=== PATIENT | male | born 1980 | race Caucasian/White ===

== ENCOUNTER 2020-06-05 09:57 | Outpatient (REF) | payer MEDICARE, MEDICAID, SELFPAY ==
--- NOTE | 2020-06-05 10:08 | XR_ITS ---
EXAMINATION: XR CHEST CLINICAL INFORMATION: Acute bronchitis. COMPARISON: None TECHNIQUE: 2 views of the chest were obtained. FINDINGS: No significant abnormality is noted involving the heart, lungs, mediastinum, bony thorax or soft tissues. XR/XR chest 2V IMPRESSION: No acute cardiopulmonary process.
== END 2020-06-05 09:58 | disposition home or self-care (01) ==
LOC: HO.XRAY 09:57
PROVIDERS: PCP Internal Medicine; Visit Provider Internal Medicine
DX: J20.9 Acute bronchitis, unspecified (principal)
CPT/HCPCS: 71046

== ENCOUNTER → 2020-06-21 11:08 | Outpatient (BNVA) | payer MEDICARE, MEDICAID, SELFPAY | PROVIDERS: PCP Internal Medicine; Visit Provider Surgery | DX: K62.5 Hemorrhage of anus and rectum (principal) | CPT/HCPCS: 99202 ==

== ENCOUNTER 2021-05-12 08:55 | Inpatient (IN) | payer MEDICARE, MEDICAID, SELFPAY ==
--- NOTE | ~2021-05-12 | CT_ITS ---
EXAMINATION: CT HEAD WITHOUT CONTRAST CLINICAL INFORMATION: Expressive aphasia. COMPARISON: None TECHNIQUE: Contiguous axial imaging was performed from the skull base to vertex without intravenous administration of contrast. This CT examination was performed using dose optimization techniques as appropriate, variously including the following: *Automated exposure control *Adjustment of mA and/or kV according to patient size (this includes techniques or standardized protocols for targeted exams where dose is matched to indication/reason for exam; i.e. extremities or head) *Use of iterative reconstruction technique DLP: 880 mGy-cm FINDINGS: There is no evidence of an extra-axial collection. There is no evidence of intra- or extra-axial hemorrhage. The ventricles and extra-axial CSF spaces are appropriate. No mass, mass effect or infarct is seen. There is hyperostosis of the bones. There are areas of ossification along the falx cerebri. No skull fracture or bone lesion. There is mild inflammatory change in the bilateral frontal sinuses. CT/CT head/brain wo con IMPRESSION: No acute findings.
[2021-05-12 09:17] VITALS: BP 160/96; PULSE 86; RESP 18; TEMP 36.6; O2SAT 95; BMI 33.6
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
[2021-05-12] MEDS: hydrOXYzine HCL 25 MG TABLET PO (11:10)
[2021-05-12] MEDS: Memantine HCl 10 MG TABLET PO ×2 (11:10→22:09)
[2021-05-12 11:15] LABS: MANUAL DIFF FLAG NO
[2021-05-12 11:16] LABS: Basophils Absolute Auto 0.1 X10*3/uL (0.0-0.2); Basophils Percent Auto 0.4 % (0-2); Eosinophils Percent Auto 0.3 % (0-4); Hematocrit 44.4 % (42.0-52.0); Hemoglobin 15.3 g/dl (14.0-18.0); Imm Gran Abs Auto 0.04 X10*3/uL (0.00-0.03); Imm Gran Pct Auto 0.3 % (0.0-0.4); Lymphocytes Percent Auto 17.1 % (20-40); Mean Corpuscular HGB Conc 34.5 g/dl (31.0-36.0); Mean Corpuscular Hemoglobin 30.1 pg (27.0-33.0); Mean Corpuscular Volume 87.2 fL (80.0-98.0); Mean Platelet Volume 9.5 fL (9.4-12.4); Monocytes Percent Auto 8.1 % (2-11); Neutrophils Absolute Auto 8.6 x10*3/uL (2.0-8.3); Neutrophils Percent Auto 73.8 % (45-73); Platelet Count 324 X10*3/uL (160-400); Red Blood Count 5.09 X10*6/uL (4.60-5.80); Red Cell Distribution Width 11.8 % (11.0-16.0); White Blood Count 11.7 X10*3/uL (4.8-10.8)
[2021-05-12 11:32] LABS: Ethanol < 10 mg/dL
[2021-05-12 11:36] LABS: Acetaminophen LAB < 1 mcg/mL (<30); Alanine Aminotransferase 30 U/L (0-40); Albumin Level 4.5 g/dL (3.5-5.0); Alkaline Phosphatase 100 U/L (39-117); Anion Gap 10 (12-20); Aspartate Amino Transferase 23 U/L (5-37); Bilirubin Total 0.6 mg/dL (0.0-1.0); Blood Urea Nitrogen 11 mg/dL (9-16); Carbon Dioxide 31 mmol/L (22-29); Chloride 105 mmol/L (96-108); Creatinine Clr Calc Pharmacy 152.6; Estimated Glomerular Filt Rate > 60; Glucose Random 109 mg/dL (60-115); Potassium 4.4 mmol/L (3.3-5.1); Sodium 142 mmol/L (135-145); Total Protein 7.4 g/dL (6.5-8.0)
[2021-05-12 11:38] LABS: Salicylate < 5.0 mg/dL (15-30)
--- NOTE | 2021-05-12 12:13 | PC.NURSE ---
BA COMPLETED FOR [facility] ADMISSION
[2021-05-12 14:21] LABS: Amphetamine Screen Urine Not Detected (Not Detect); Barbiturates, Urine Not Detected (Not Detect); Benzodiazepines Screen Urine Not Detected (Not Detect); Cannabinoid Screen Urine Not Detected (Not Detect); Cocaine Screen Urine Not Detected (Not Detect); Fentanyl, urine Not Detected (Not Detect); Opiate Screen Urine Not Detected (Not Detect); Phencyclidine Screen Urine Not Detected (Not Detect)
[2021-05-12 18:21] LABS: COVID-19 Test Negative (Negative)
[2021-05-12] MEDS: Melatonin 3 MG TABLET 6 MG PO (22:08)
[2021-05-12] MEDS: OXcarbazepine 300 MG TABLET 600 MG PO (22:08)
[2021-05-12] MEDS: risperiDONE 2 MG TABLET 4 MG PO (22:09)
--- NOTE | 2021-05-13 05:21 | PC.NURSE ---
Patient slept through the night, no distress observed/reported, behavior appropriate, cooperative, and non concerning, medication compliant, appetite good, elimination intact, disposition per N is section 12 inpatient bed search, VSS, will continue to monitor.
--- NOTE | 2021-05-13 07:03 | PC.NURSE ---
patient appears to remain asleep at present respirations are even and unlabored, patient appears in no distress
[2021-05-13] MEDS: Memantine HCl 10 MG TABLET PO ×2 (08:02→19:54)
[2021-05-13] MEDS: OXcarbazepine 300 MG TABLET 600 MG PO ×2 (08:02→19:54)
[2021-05-13] MEDS: risperiDONE 3 MG TABLET PO (08:02)
--- NOTE | 2021-05-13 08:23 | MHC.CM.ED ---
at this time pt is an inpatient psych bed search per crisis team. cm to cont. to follow.
[2021-05-13] MEDS: Melatonin 3 MG TABLET 6 MG PO (19:53)
[2021-05-13] MEDS: risperiDONE 2 MG TABLET 4 MG PO (19:53)
[2021-05-13] MEDS: Zolpidem Tartrate 5 MG TABLET 10 MG PO (19:54)
[2021-05-14 04:59] VITALS: RESP 16
--- NOTE | 2021-05-14 06:02 | PC.NURSE ---
Patient slept through the night, no distress observed/reported, behavior appropriate, cooperative, and non concerning, medication compliant, appetite good, elimination intact, disposition per [facility] is voluntary inpatient bed search, refused VS, will continue to monitor
[2021-05-14] MEDS: risperiDONE 3 MG TABLET PO (09:17)
[2021-05-14] MEDS: Memantine HCl 10 MG TABLET PO ×2 (09:17→20:07)
[2021-05-14] MEDS: OXcarbazepine 300 MG TABLET 600 MG PO ×2 (09:17→20:05)
--- NOTE | 2021-05-14 09:40 | HE.PHANOTE ---
Per policy max dose of Ambien is 5 mg. Dose switch from 10 mg to 5 mg. Sydnee Singh, PharmD
--- NOTE | 2021-05-14 10:40 | PC.NURSE ---
Pt anxious, asking when he will be going upstairs, voluntary inpatient. Explained to pt the hospital must DC people before can be admitted at this time. Pt also requesting medication for my skin and the sun but cannot give name of medication. Pt is redirectable and cooperative at this time. Will continue to monitor.
[2021-05-14] MEDS: risperiDONE 2 MG TABLET 4 MG PO (20:05)
[2021-05-14] MEDS: Melatonin 3 MG TABLET 6 MG PO (20:05)
[2021-05-14] MEDS: Zolpidem Tartrate 5 MG TABLET PO (20:06)
[2021-05-15 04:58] VITALS: BP 129/65; PULSE 80; RESP 20; TEMP 36.6; O2SAT 99
--- NOTE | 2021-05-15 06:09 | PC.NURSE ---
Patient slept through the night, no distress observed/reported, behavior gregarious, cooperative and non concerning, medication compliant, appetite good, elimination intact, disposition per [facility] is voluntary inpatient bed search, VSS, will continue to monitor
[2021-05-15] MEDS: Memantine HCl 10 MG TABLET PO ×2 (08:09→21:49)
[2021-05-15] MEDS: OXcarbazepine 300 MG TABLET 600 MG PO ×2 (08:09→21:48)
[2021-05-15] MEDS: risperiDONE 3 MG TABLET PO (08:10)
[2021-05-15 18:00] VITALS: BP 128/64; PULSE 78; TEMP 36.6; O2SAT 98
[2021-05-15] MEDS: risperiDONE 2 MG TABLET 4 MG PO (21:49)
[2021-05-15] MEDS: Melatonin 3 MG TABLET 6 MG PO (22:10)
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
[2021-05-16] MEDS: OXcarbazepine 300 MG TABLET 600 MG PO ×2 (08:56→21:07)
[2021-05-16] MEDS: risperiDONE 3 MG TABLET PO (08:56)
[2021-05-16] MEDS: Memantine HCl 10 MG TABLET PO ×2 (08:56→21:07)
[2021-05-16 09:04] LABS: Cholesterol 182 mg/dL; HDL Cholesterol 34 mg/dL; LDL Cholesterol Calculated 128 mg/dl; Triglycerides 104 mg/dL
[2021-05-16 09:09] LABS: Estimated Average Glucose 103 mg/dL; Hemoglobin A1c % 5.2 %
[2021-05-16 09:41] LABS: Folate 17.5 ng/mL (> or = 4.0); Vitamin B12 366 pg/mL (200-900)
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
[2021-05-16 18:00] VITALS: BP 135/86; PULSE 111; RESP 18; TEMP 36.6; O2SAT 93
[2021-05-16] MEDS: risperiDONE 2 MG TABLET 4 MG PO (21:07)
[2021-05-16] MEDS: Divalproex Sodium 500 MG TABLET.DR PO (21:08)
[2021-05-16] MEDS: Melatonin 3 MG TABLET 6 MG PO (21:31)
[2021-05-16] MEDS: traZODone HCL 50 MG TABLET PO (21:31)
[2021-05-17] MEDS: OXcarbazepine 300 MG TABLET 600 MG PO ×2 (09:23→21:05)
[2021-05-17] MEDS: risperiDONE 3 MG TABLET PO (09:23)
[2021-05-17] MEDS: Divalproex Sodium 500 MG TABLET.DR PO ×2 (09:24→21:05)
[2021-05-17] MEDS: Memantine HCl 10 MG TABLET PO ×2 (09:24→21:05)
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
[2021-05-17 17:09] VITALS: BP 118/67; PULSE 78; TEMP 36.6
[2021-05-17] MEDS: traZODone HCL 50 MG TABLET PO (21:04)
[2021-05-17] MEDS: Melatonin 3 MG TABLET 6 MG PO (21:05)
[2021-05-17] MEDS: risperiDONE 2 MG TABLET 4 MG PO (21:06)
[2021-05-18] MEDS: OXcarbazepine 300 MG TABLET 600 MG PO ×2 (08:59→21:00)
[2021-05-18] MEDS: risperiDONE 3 MG TABLET PO (09:00)
[2021-05-18] MEDS: Divalproex Sodium 500 MG TABLET.DR PO ×2 (09:00→21:00)
[2021-05-18] MEDS: Memantine HCl 10 MG TABLET PO ×2 (09:00→21:01)
[2021-05-18] MEDS: FLUoxetine HCl 20 MG CAPSULE 40 MG PO (09:00)
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
[2021-05-18] MEDS: risperiDONE 2 MG TABLET 4 MG PO (21:00)
[2021-05-19 06:00] VITALS: BP 145/83; PULSE 94; RESP 18
[2021-05-19] MEDS: Divalproex Sodium 500 MG TABLET.DR PO ×2 (08:26→19:12)
[2021-05-19] MEDS: FLUoxetine HCl 20 MG CAPSULE 40 MG PO (08:26)
[2021-05-19] MEDS: OXcarbazepine 300 MG TABLET 600 MG PO (08:26)
[2021-05-19] MEDS: Memantine HCl 10 MG TABLET PO ×2 (08:26→19:12)
[2021-05-19] MEDS: risperiDONE 3 MG TABLET PO (08:26)
--- NOTE | 2021-05-19 09:57 | P.PNPSI_ITS ---
Subjective Subjective Date of Service: 05/19/21 Reason For Visit: psychosis, mood disorder Subjective Notes: Conditional Voluntary Interim History: Pt in his room most of the morning. Pt reports feeling okay. he reports not sure if better in terms of depression or not because is too early. Pt presents as less irritable, less anxious. He denies SI/HI. He hopes to return to soon. apologetic about incident. Medication Compliance: Yes Side effects from medications: No Review of Systems Constitutional: Reports no additional constitutional complaints, Denies body ache(s), Denies chills, Denies fatigue, Denies fever(s), Denies headache(s), Denies malaise and Denies weakness Eyes: Reports no additional eye complaints and Denies diplopia Denies vertigo, Denies dizziness, Denies otalgia, Denies headache(s), Denies mouth pain, Denies post nasal drip, Denies sinus pain, Denies sinus pressure, Denies sore throat and Denies throat swelling Cardiovascular: Denies chest pain, Denies syncope, Denies rapid heart rate, Denies irregular heart rhythm, Denies leg edema, Denies lightheadedness, Denies Loss of Consciousness, Denies palpitations and Denies dyspnea Respiratory: Denies chest congestion, Denies cough, Denies pain with cough and Denies dyspnea Gastrointestinal: Denies abdominal pain, Denies hematochezia, Denies constipation, Denies diarrhea and Denies vomiting Genitourinary: Reports testicular mass Musculoskeletal: Reports no additional musculoskeletal complaints Denies confusion, Denies vertigo, Denies dizziness, Denies syncope, Denies headache(s) and Denies weakness Psychiatric: Denies anxiety, Denies confusion and Denies depression Endocrine: Denies fatigue and Denies palpitations Allergic/Immunologic: Denies throat swelling Mental Status Exam Mental Status Exam Narrative: Appearance: casually groomed, fair hygiene in NAD Behavior: guarded at times psychomotor:no agitation or retardation noted Speech:notable for expressive aphasia, difficulty finding words, describing situations, frustration related to this, comphrehension is intact. Spontaneous, loud at times. Thought process:disorganized Thought content:no signs of psychosis, asking for help to control his behavior Mood: depressed Affect: brightens at times, irritable when demands not met SI:denies HI:denies VH/AH:none Delusions:none Insight/judgment:poor x 2. Memory/cog: alert, oriented to place, month, situation, not formally tested Diagnostics Vital Signs (24Hr): BMI result Body Mass Index 33.6 Labs Results: 05/12/21 11:11 05/12/21 11:11 Medications Medications Current Medications Acetaminophen (Acetaminophen 325 Mg Tablet) 650 mg PO Q6H PRN PRN Reason: Headache/Pain Mild Scale (1-3) Al Hydroxide/Mg Hydroxide (Magnesium Hydrox/Alum Hydrox 30 Ml Oral.Susp) 30 ml PO Q6H PRN PRN Reason: Heartburn/Nausea Divalproex Sodium (Divalproex Sodium 500 Mg Tablet.) 500 mg PO BID@0800,1900 [facility] Last Admin: 05/20/21 09:11 Dose: 500 mg Documented by: Fluoxetine HCl (Fluoxetine Hcl 20 Mg Capsule) 40 mg PO DAILY [facility] Last Admin: 05/20/21 09:11 Dose: 40 mg Documented by: Hydroxyzine HCl (Hydroxyzine Hcl 25 Mg Tablet) 25 mg PO BEDTIME PRN PRN Reason: Anxiety Lorazepam (Lorazepam 1 Mg Tablet) 1 mg PO Q4H PRN PRN Reason: anxiety, agitation Magnesium Hydroxide (Milk Of Magnesia 30 Ml Oral.Susp) 30 ml PO DAILY PRN PRN Reason: Constipation Melatonin (Melatonin 3 Mg Tablet) 6 mg PO BEDTIME PRN PRN Reason: Insomnia Last Admin: 05/19/21 19:35 Dose: 6 mg Documented by: Memantine (Memantine Hcl 10 Mg Tablet) 10 mg PO BID [facility] Last Admin: 05/20/21 09:12 Dose: 10 mg Documented by: Olanzapine (Olanzapine Odt 10 Mg Tab.Rapdis) 10 mg TRANSLINGU Q6H PRN PRN Reason: agitation Risperidone (Risperidone 3 Mg Tablet) 3 mg PO DAILY [facility] Last Admin: 05/20/21 09:12 Dose: 3 mg Documented by: Risperidone (Risperidone 2 Mg Tablet) 4 mg PO DAILY@1900 [facility] Last Admin: 05/19/21 19:12 Dose: 4 mg Documented by: Trazodone HCl (Trazodone Hcl 100 Mg Tablet) 100 mg PO BEDTIME PRN PRN Reason: Insomnia Last Admin: 05/19/21 19:35 Dose: 100 mg Documented by: Allergies Allergies Allergy/AdvReac Type Severity Reaction Status Date / Time No Known Allergies Allergy Verified 04/19/21 11:08 Assessment & Plan Assessment & Plan (1) Intermittent explosive disorder in adult: Status: Acute Code(s): F63.81 - Intermittent explosive disorder (2) OCD (obsessive compulsive disorder): Status: Acute Code(s): F42.9 - Obsessive-compulsive disorder, unspecified (3) Jalyn onychomycosis: Status: Acute Code(s): B37.2 - Candidiasis of skin and nail (4) Sebaceous cyst of scrotum: Status: Acute Code(s): L72.3 - Sebaceous cyst Assessment and Plan: Mr. Fowler is a 41 year-old male with unclear psychiatric hx- explosive behaviors, expressive language disorder noted (difficulty finding words and expressing himself, notable frustration as he tried to explain to us events leading to this admission), concrete in his thinking, ? underlying cognitive impairments developmental. He reports hx of OCD (does have particular ways of organizing things) and Touretts syndrome- not sure how accurate this is. No signs of psychosis, non per staff noted. PLAN 1. Admit to M5, CV 15 minutes 2. Start Depakote 500mg po BID, continue risperidone, start prozac 40mg po daily 3. Called Dr. Jack Nguyen on 05/16, awaiting call back 4. Obtain collateral information 5. Aftercare planning I spent minutes with the patient and/or on the patient floor today, greater than?50% of which was spent counseling/coordinating care. Reason for contiued inpatient stay Substantial Risk for: inability to function
[2021-05-19] MEDS: risperiDONE 2 MG TABLET 4 MG PO (19:12)
[2021-05-19] MEDS: Melatonin 3 MG TABLET 6 MG PO (19:35)
[2021-05-19] MEDS: traZODone HCL 100 MG TABLET PO (19:35)
[2021-05-20] MEDS: Divalproex Sodium 500 MG TABLET.DR PO ×2 (09:11→19:17)
[2021-05-20] MEDS: FLUoxetine HCl 20 MG CAPSULE 40 MG PO (09:11)
[2021-05-20] MEDS: risperiDONE 3 MG TABLET PO (09:12)
[2021-05-20] MEDS: Memantine HCl 10 MG TABLET PO ×2 (09:12→19:17)
--- NOTE | 2021-05-20 12:59 | HO.PSYCHPN ---
Subjective Subjective Date of Service: 05/20/21 Reason For Visit: psychosis, mood disorder Subjective Notes: Conditional Voluntary Interim History: Pt mostly in his room, encouraged to attend group but declines. He presents as calmer. Pt reports feeling okay. he continues to report not sure if better in terms of depression or not because is too early. Pt presents as less irritable, less anxious. He denies SI/HI. He hopes to return to soon. apologetic about incident. He asks for zoom meeting with staff. Review of Systems Constitutional: Reports no additional constitutional complaints, Denies body ache(s), Denies chills, Denies fatigue, Denies fever(s), Denies headache(s), Denies malaise and Denies weakness Eyes: Reports no additional eye complaints and Denies diplopia Denies vertigo, Denies dizziness, Denies otalgia, Denies headache(s), Denies mouth pain, Denies post nasal drip, Denies sinus pain, Denies sinus pressure, Denies sore throat and Denies throat swelling Cardiovascular: Denies chest pain, Denies syncope, Denies rapid heart rate, Denies irregular heart rhythm, Denies leg edema, Denies lightheadedness, Denies Loss of Consciousness, Denies palpitations and Denies dyspnea Respiratory: Denies chest congestion, Denies cough, Denies pain with cough and Denies dyspnea Gastrointestinal: Denies abdominal pain, Denies hematochezia, Denies constipation, Denies diarrhea and Denies vomiting Genitourinary: Reports testicular mass Musculoskeletal: Reports no additional musculoskeletal complaints Denies confusion, Denies vertigo, Denies dizziness, Denies syncope, Denies headache(s) and Denies weakness Psychiatric: Denies anxiety, Denies confusion and Denies depression Endocrine: Denies fatigue and Denies palpitations Allergic/Immunologic: Denies throat swelling Mental Status Exam Mental Status Exam Narrative: Appearance: casually groomed, fair hygiene in NAD Behavior: guarded at times psychomotor:no agitation or retardation noted Speech:notable for expressive aphasia, difficulty finding words, describing situations, frustration related to this, comphrehension is intact. Spontaneous, loud at times. Thought process:disorganized Thought content:no signs of psychosis, asking for help to control his behavior Mood: depressed Affect: brightens at times, irritable when demands not met SI:denies HI:denies VH/AH:none Delusions:none Insight/judgment:poor x 2. Memory/cog: alert, oriented to place, month, situation, not formally tested Diagnostics Vital Signs (24Hr): BMI result Body Mass Index 33.6 Labs Results: 05/12/21 11:11 05/12/21 11:11 Medications Medications Current Medications Acetaminophen (Acetaminophen 325 Mg Tablet) 650 mg PO Q6H PRN PRN Reason: Headache/Pain Mild Scale (1-3) Al Hydroxide/Mg Hydroxide (Magnesium Hydrox/Alum Hydrox 30 Ml Oral.Susp) 30 ml PO Q6H PRN PRN Reason: Heartburn/Nausea Divalproex Sodium (Divalproex Sodium 500 Mg Tablet.Dr) 500 mg PO BID@0800,1900 [facility] Last Admin: 05/20/21 09:11 Dose: 500 mg Documented by: Fluoxetine HCl (Fluoxetine Hcl 20 Mg Capsule) 40 mg PO DAILY [facility] Last Admin: 05/20/21 09:11 Dose: 40 mg Documented by: Hydroxyzine HCl (Hydroxyzine Hcl 25 Mg Tablet) 25 mg PO BEDTIME PRN PRN Reason: Anxiety Lorazepam (Lorazepam 1 Mg Tablet) 1 mg PO Q4H PRN PRN Reason: anxiety, agitation Magnesium Hydroxide (Milk Of Magnesia 30 Ml Oral.Susp) 30 ml PO DAILY PRN PRN Reason: Constipation Melatonin (Melatonin 3 Mg Tablet) 6 mg PO BEDTIME PRN PRN Reason: Insomnia Last Admin: 05/19/21 19:35 Dose: 6 mg Documented by: Memantine (Memantine Hcl 10 Mg Tablet) 10 mg PO BID [facility] Last Admin: 05/20/21 09:12 Dose: 10 mg Documented by: Olanzapine (Olanzapine Odt 10 Mg Tab.Rapdis) 10 mg TRANSLINGU Q6H PRN PRN Reason: agitation Risperidone (Risperidone 3 Mg Tablet) 3 mg PO DAILY [facility] Last Admin: 05/20/21 09:12 Dose: 3 mg Documented by: Risperidone (Risperidone 2 Mg Tablet) 4 mg PO DAILY@1900 [facility] Last Admin: 05/19/21 19:12 Dose: 4 mg Documented by: Trazodone HCl (Trazodone Hcl 100 Mg Tablet) 100 mg PO BEDTIME PRN PRN Reason: Insomnia Last Admin: 05/19/21 19:35 Dose: 100 mg Documented by: Allergies Allergies Allergy/AdvReac Type Severity Reaction Status Date / Time No Known Allergies Allergy Verified 04/19/21 11:08 Assessment & Plan Assessment & Plan (1) Intermittent explosive disorder in adult: Status: Acute Code(s): F63.81 - Intermittent explosive disorder (2) OCD (obsessive compulsive disorder): Status: Acute Code(s): F42.9 - Obsessive-compulsive disorder, unspecified (3) Jalyn onychomycosis: Status: Acute Code(s): B37.2 - Candidiasis of skin and nail (4) Sebaceous cyst of scrotum: Status: Acute Code(s): L72.3 - Sebaceous cyst Assessment and Plan: Mr. Fowler is a 41 year-old male with unclear psychiatric hx- explosive behaviors, expressive language disorder noted (difficulty finding words and expressing himself, notable frustration as he tried to explain to us events leading to this admission), concrete in his thinking, ? underlying cognitive impairments developmental. He reports hx of OCD (does have particular ways of organizing things) and Touretts syndrome- not sure how accurate this is. No signs of psychosis, non per staff noted. PLAN 1. Admit to M5, CV 15 minutes 2. Start Depakote 500mg po BID, continue risperidone, start prozac 40mg po daily 3. Called Dr. Jack Nguyen on 05/16, awaiting call back 4. Obtain collateral information 5. Aftercare planning I spent minutes with the patient and/or on the patient floor today, greater than?50% of which was spent counseling/coordinating care. Reason for contiued inpatient stay Substantial Risk for: harm to others
[2021-05-20 16:30] VITALS: BP 134/76; PULSE 106; TEMP 36.7
[2021-05-20] MEDS: traZODone HCL 100 MG TABLET PO (19:16)
[2021-05-20] MEDS: Melatonin 3 MG TABLET 6 MG PO (19:16)
[2021-05-20] MEDS: risperiDONE 2 MG TABLET 4 MG PO (19:17)
[2021-05-21 08:55] LABS: Valproate 51.8 mcg/mL (50.0-100.0)
[2021-05-21] MEDS: risperiDONE 3 MG TABLET PO (09:43)
[2021-05-21] MEDS: Memantine HCl 10 MG TABLET PO ×2 (09:43→20:05)
[2021-05-21] MEDS: Divalproex Sodium 500 MG TABLET.DR PO ×2 (09:43→18:57)
[2021-05-21] MEDS: FLUoxetine HCl 20 MG CAPSULE 40 MG PO (09:43)
--- NOTE | 2021-05-21 10:53 | HO.PSYCHPN ---
Subjective Subjective Date of Service: 05/21/21 Reason For Visit: psychosis, mood disorder Subjective Notes: Conditional Voluntary Interim History: Pt seen with clinician Ashwini. Pt reports noticing less depressed mood. he reports still getting angry and frustrated easily and worries about it. He reports sleeping and eating well. He visibly frustrated when trying to communicate and can't express himself as easily. He denies SI/HI. He hopes to have meeting with staff from soon. pending depakote level. amenable to adjust dose. Medication Compliance: Yes Review of Systems Constitutional: Reports no additional constitutional complaints, Denies body ache(s), Denies chills, Denies fatigue, Denies fever(s), Denies headache(s), Denies malaise and Denies weakness Eyes: Reports no additional eye complaints and Denies diplopia Denies vertigo, Denies dizziness, Denies otalgia, Denies headache(s), Denies mouth pain, Denies post nasal drip, Denies sinus pain, Denies sinus pressure, Denies sore throat and Denies throat swelling Cardiovascular: Denies chest pain, Denies syncope, Denies rapid heart rate, Denies irregular heart rhythm, Denies leg edema, Denies lightheadedness, Denies Loss of Consciousness, Denies palpitations and Denies dyspnea Respiratory: Denies chest congestion, Denies cough, Denies pain with cough and Denies dyspnea Gastrointestinal: Denies abdominal pain, Denies hematochezia, Denies constipation, Denies diarrhea and Denies vomiting Genitourinary: Reports testicular mass Musculoskeletal: Reports no additional musculoskeletal complaints Denies confusion, Denies vertigo, Denies dizziness, Denies syncope, Denies headache(s) and Denies weakness Psychiatric: Denies anxiety, Denies confusion and Denies depression Endocrine: Denies fatigue and Denies palpitations Allergic/Immunologic: Denies throat swelling Mental Status Exam Mental Status Exam Narrative: Appearance: casually groomed, fair hygiene in NAD Behavior: guarded at times psychomotor:no agitation or retardation noted Speech:notable for expressive aphasia, difficulty finding words, describing situations, frustration related to this, comphrehension is intact. Spontaneous, loud at times. Thought process:disorganized Thought content:no signs of psychosis, asking for help to control his behavior Mood: depressed Affect: brightens at times, irritable when demands not met SI:denies HI:denies VH/AH:none Delusions:none Insight/judgment:poor x 2. Memory/cog: alert, oriented to place, month, situation, not formally tested Diagnostics Vital Signs (24Hr): Vital Signs - 24 hr 05/20/21 16:30 Temperature 98.0 F Pulse Rate 106 H Blood Pressure 134/76 BMI result Body Mass Index 33.6 Labs Results: 05/12/21 11:11 05/12/21 11:11 Labs: Laboratory Results - last 48 hr 05/21/21 08:00 Valproic Acid 51.8 Medications Medications Current Medications Acetaminophen (Acetaminophen 325 Mg Tablet) 650 mg PO Q6H PRN PRN Reason: Headache/Pain Mild Scale (1-3) Al Hydroxide/Mg Hydroxide (Magnesium Hydrox/Alum Hydrox 30 Ml Oral.Susp) 30 ml PO Q6H PRN PRN Reason: Heartburn/Nausea Divalproex Sodium (Divalproex Sodium 500 Mg Tablet.) 500 mg PO BID@0800,1900 [facility] Last Admin: 05/21/21 09:43 Dose: 500 mg Documented by: Fluoxetine HCl (Fluoxetine Hcl 20 Mg Capsule) 40 mg PO DAILY [facility] Last Admin: 05/21/21 09:43 Dose: 40 mg Documented by: Hydroxyzine HCl (Hydroxyzine Hcl 25 Mg Tablet) 25 mg PO BEDTIME PRN PRN Reason: Anxiety Lorazepam (Lorazepam 1 Mg Tablet) 1 mg PO Q4H PRN PRN Reason: anxiety, agitation Magnesium Hydroxide (Milk Of Magnesia 30 Ml Oral.Susp) 30 ml PO DAILY PRN PRN Reason: Constipation Melatonin (Melatonin 3 Mg Tablet) 6 mg PO BEDTIME PRN PRN Reason: Insomnia Last Admin: 05/20/21 19:16 Dose: 6 mg Documented by: Memantine (Memantine Hcl 10 Mg Tablet) 10 mg PO BID [facility] Last Admin: 05/21/21 09:43 Dose: 10 mg Documented by: Olanzapine (Olanzapine Odt 10 Mg Tab.Rapdis) 10 mg TRANSLINGU Q6H PRN PRN Reason: agitation Risperidone (Risperidone 3 Mg Tablet) 3 mg PO DAILY [facility] Last Admin: 05/21/21 09:43 Dose: 3 mg Documented by: Risperidone (Risperidone 2 Mg Tablet) 4 mg PO DAILY@1900 [facility] Last Admin: 05/20/21 19:17 Dose: 4 mg Documented by: Trazodone HCl (Trazodone Hcl 100 Mg Tablet) 100 mg PO BEDTIME PRN PRN Reason: Insomnia Last Admin: 05/20/21 19:16 Dose: 100 mg Documented by: Vitamin E (Vitamin E (Dl,Tocopheryl Acet) 180 Mg (400 Unit) Capsule) 180 mg PO DAILY [facility] Allergies Allergies Allergy/AdvReac Type Severity Reaction Status Date / Time No Known Allergies Allergy Verified 04/19/21 11:08 Assessment & Plan Assessment & Plan (1) Intermittent explosive disorder in adult: Status: Acute Code(s): F63.81 - Intermittent explosive disorder (2) OCD (obsessive compulsive disorder): Status: Acute Code(s): F42.9 - Obsessive-compulsive disorder, unspecified (3) Jalyn onychomycosis: Status: Acute Code(s): B37.2 - Candidiasis of skin and nail (4) Sebaceous cyst of scrotum: Status: Acute Code(s): L72.3 - Sebaceous cyst Assessment and Plan: Mr. Fowler is a 41 year-old male with unclear psychiatric hx- explosive behaviors, expressive language disorder noted (difficulty finding words and expressing himself, notable frustration as he tried to explain to us events leading to this admission), concrete in his thinking, ? underlying cognitive impairments developmental. He reports hx of OCD (does have particular ways of organizing things) and Touretts syndrome- not sure how accurate this is. No signs of psychosis, non per staff noted. PLAN 1. Admit to M5, CV 15 minutes 2. Continue Depakote 500mg po BID (depakote level 05/21 is 51), continue risperidone, start prozac 40mg po daily 3. Called Dr. Jack Nguyen on 05/16, awaiting call back 4. Obtain collateral information 5. Aftercare planning I spent minutes with the patient and/or on the patient floor today, greater than?50% of which was spent counseling/coordinating care. Reason for contiued inpatient stay Substantial Risk for: harm to others and inability to function
[2021-05-21] MEDS: Vitamin E (Dl,Tocopheryl Acet) 180 MG (400 UNIT) CAPSULE PO (17:26)
[2021-05-21 17:32] VITALS: BP 134/75; PULSE 69; TEMP 36.7; O2SAT 95
[2021-05-21] MEDS: risperiDONE 2 MG TABLET 4 MG PO (18:58)
[2021-05-21] MEDS: traZODone HCL 100 MG TABLET PO (20:05)
[2021-05-21] MEDS: Melatonin 3 MG TABLET 6 MG PO (20:05)
[2021-05-22] MEDS: risperiDONE 3 MG TABLET PO (09:01)
[2021-05-22] MEDS: Memantine HCl 10 MG TABLET PO (09:01)
[2021-05-22] MEDS: FLUoxetine HCl 20 MG CAPSULE 40 MG PO (09:01)
[2021-05-22] MEDS: Vitamin E (Dl,Tocopheryl Acet) 180 MG (400 UNIT) CAPSULE PO (09:01)
[2021-05-22] MEDS: Divalproex Sodium 500 MG TABLET.DR PO (09:02)
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
[2021-05-22 18:00] VITALS: BP 137/89; PULSE 100; TEMP 36.8; O2SAT 95
[2021-05-22] MEDS: Divalproex Sodium 500 MG TABLET.DR 1000 MG PO (19:12)
[2021-05-22] MEDS: risperiDONE 2 MG TABLET 4 MG PO (19:13)
[2021-05-22] MEDS: Melatonin 3 MG TABLET 6 MG PO (21:48)
[2021-05-22] MEDS: traZODone HCL 100 MG TABLET PO (21:48)
[2021-05-23] MEDS: Vitamin E (Dl,Tocopheryl Acet) 180 MG (400 UNIT) CAPSULE PO (09:15)
[2021-05-23] MEDS: risperiDONE 3 MG TABLET PO (09:15)
[2021-05-23] MEDS: FLUoxetine HCl 20 MG CAPSULE 40 MG PO (09:15)
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
[2021-05-23 18:50] VITALS: BP 119/73; PULSE 76; RESP 18; TEMP 36.4; O2SAT 95
[2021-05-23] MEDS: Divalproex Sodium ER 500 MG TAB.ER.24H 1500 MG PO (19:21)
[2021-05-23] MEDS: risperiDONE 2 MG TABLET 4 MG PO (19:21)
[2021-05-23] MEDS: Memantine HCl 10 MG TABLET PO (19:44)
[2021-05-23] MEDS: traZODone HCL 100 MG TABLET PO (19:45)
[2021-05-23] MEDS: Melatonin 3 MG TABLET 6 MG PO (19:55)
[2021-05-24] MEDS: Vitamin E (Dl,Tocopheryl Acet) 180 MG (400 UNIT) CAPSULE PO (08:36)
[2021-05-24] MEDS: FLUoxetine HCl 20 MG CAPSULE 40 MG PO (08:36)
[2021-05-24] MEDS: risperiDONE 3 MG TABLET PO (08:36)
[2021-05-24] MEDS: Memantine HCl 10 MG TABLET PO ×2 (08:37→19:31)
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
[2021-05-24 18:29] VITALS: BP 131/72; PULSE 76; RESP 18; TEMP 36.3; O2SAT 95
[2021-05-24] MEDS: Divalproex Sodium ER 500 MG TAB.ER.24H 1500 MG PO (19:30)
[2021-05-24] MEDS: risperiDONE 2 MG TABLET 4 MG PO (19:30)
[2021-05-24] MEDS: Melatonin 3 MG TABLET 6 MG PO (19:31)
[2021-05-24] MEDS: traZODone HCL 100 MG TABLET PO (19:31)
[2021-05-25] MEDS: risperiDONE 3 MG TABLET PO (08:40)
[2021-05-25] MEDS: Memantine HCl 10 MG TABLET PO ×2 (08:40→19:40)
[2021-05-25] MEDS: Vitamin E (Dl,Tocopheryl Acet) 180 MG (400 UNIT) CAPSULE PO (08:40)
[2021-05-25] MEDS: FLUoxetine HCl 20 MG CAPSULE 40 MG PO (08:40)
--- NOTE | 2021-05-25 13:32 | P.PNPSI_ITS ---
Subjective Subjective Date of Service: 05/25/21 Reason For Visit: psychosis, mood disorder Interim History: Patient awake but resting in bed. He says he is fine and does not need anything. He consents to blood draw tomorrow for Depakote level. Denies any complaints and has no requests. Mental Status Exam Mental Status Exam Narrative: Appearance: shirtless; fair hygiene in NAD Behavior: calm, friendly psychomotor:no agitation or retardation noted Speech:notable for expressive aphasia, difficulty finding words, describing situations, frustration related to this, comprehension is intact. Spontaneous, loud at times. Thought process:goal oriented Thought content: on tx; no signs of psychosis, asking for help to control his behavior Mood: ok Affect: brightens at times, irritable when demands not met SI:denies HI:denies VH/AH:none Delusions:none Insight/judgment:poor x 2. Diagnostics Vital Signs (24Hr): Vital Signs - 24 hr 05/24/21 18:29 Temperature 97.3 F Pulse Rate 76 Respiratory Rate 18 Blood Pressure 131/72 Pulse Oximetry 95 BMI result Body Mass Index 33.6 Labs Results: 05/12/21 11:11 05/12/21 11:11 Imaging Radiology Impressions: ITS Impressions Head CT 05/23/21 13:32 IMPRESSION: No acute findings. Medications Medications Current Medications Acetaminophen (Acetaminophen 325 Mg Tablet) 650 mg PO Q6H PRN PRN Reason: Headache/Pain Mild Scale (1-3) Al Hydroxide/Mg Hydroxide (Magnesium Hydrox/Alum Hydrox 30 Ml Oral.Susp) 30 ml PO Q6H PRN PRN Reason: Heartburn/Nausea Divalproex Sodium (Divalproex Sodium Er 500 Mg Tab.Er.24h) 1,500 mg PO DAILY@1900 [facility] Last Admin: 05/24/21 19:30 Dose: 1,500 mg Documented by: Fluoxetine HCl (Fluoxetine Hcl 20 Mg Capsule) 40 mg PO DAILY [facility] Last Admin: 05/25/21 08:40 Dose: 40 mg Documented by: Hydroxyzine HCl (Hydroxyzine Hcl 25 Mg Tablet) 25 mg PO BEDTIME PRN PRN Reason: Anxiety Magnesium Hydroxide (Milk Of Magnesia 30 Ml Oral.Susp) 30 ml PO DAILY PRN PRN Reason: Constipation Melatonin (Melatonin 3 Mg Tablet) 6 mg PO BEDTIME PRN PRN Reason: Insomnia Last Admin: 05/24/21 19:31 Dose: 6 mg Documented by: Memantine (Memantine Hcl 10 Mg Tablet) 10 mg PO BID [facility] Last Admin: 05/25/21 08:40 Dose: 10 mg Documented by: Risperidone (Risperidone 3 Mg Tablet) 3 mg PO DAILY [facility] Last Admin: 05/25/21 08:40 Dose: 3 mg Documented by: Risperidone (Risperidone 2 Mg Tablet) 4 mg PO DAILY@1900 [facility] Last Admin: 05/24/21 19:30 Dose: 4 mg Documented by: Trazodone HCl (Trazodone Hcl 100 Mg Tablet) 100 mg PO BEDTIME PRN PRN Reason: Insomnia Last Admin: 05/24/21 19:31 Dose: 100 mg Documented by: Vitamin E (Vitamin E (Dl,Tocopheryl Acet) 180 Mg (400 Unit) Capsule) 180 mg PO DAILY [facility] Last Admin: 05/25/21 08:40 Dose: 180 mg Documented by: Allergies Allergies Allergy/AdvReac Type Severity Reaction Status Date / Time No Known Allergies Allergy Verified 04/19/21 11:08 Assessment & Plan Assessment & Plan (1) Intermittent explosive disorder in adult: Status: Acute Code(s): F63.81 - Intermittent explosive disorder (2) OCD (obsessive compulsive disorder): Status: Acute Code(s): F42.9 - Obsessive-compulsive disorder, unspecified (3) Jalyn onychomycosis: Status: Acute Code(s): B37.2 - Candidiasis of skin and nail (4) Sebaceous cyst of scrotum: Status: Acute Code(s): L72.3 - Sebaceous cyst (5) Expressive language impairment: Status: Acute Code(s): F80.1 - Expressive language disorder Assessment and Plan: Pt with difficulty producing grammatical sentences, speech limited to short sentences of 4 words or less, difficulty finding right sound or/and right w ord. Pt's comprehension appears fairly intact. Assessment and Plan: Mr. Fowler is a 41 year-old male with unclear psychiatric hx- explosive behaviors, expressive language disorder noted (difficulty finding words and expressing himself, notable frustration as he tried to explain to us events leading to this admission), concrete in his thinking, ? underlying cognitive impairments developmental. He reports hx of OCD (does have particular ways of organizing things) and Touretts syndrome- not sure how accurate this is. No signs of psychosis, non per staff noted. covering 05/25/21 -presents as stable -will get Depakote level and associated labs on 05/26 -social Work reports that [facility] plans to him return PLAN 1. Admit to M5, CV 15 minutes 2. Increase Depakote ER 1500mg po qhs (depakote level 05/21 is 51), continue ri speridone, continue prozac 40mg po daily 3. Collateral information from Dr. Jack Nguyen on 05/22: as reported by staff depakote most effective for explosive behaviors, namenda not active rx no clear reason for this medication therefore will be discontinued. Pt reports namenda was prescribed for aggression and thinks it was helpful. Pt wants to continue namenda. Other off label uses of namenda include adjunt for OCD, aggression in TBI. 4. Obtain collateral information 5. Aftercare planning I spent minutes with the patient and/or on the patient floor today, greater than?50% of which was spent counseling/coordinating care. Reason for contiued inpatient stay Substantial Risk for: med/psych decompensation
[2021-05-25] MEDS: Divalproex Sodium ER 500 MG TAB.ER.24H 1500 MG PO (19:27)
[2021-05-25] MEDS: risperiDONE 2 MG TABLET 4 MG PO (19:27)
[2021-05-25] MEDS: Melatonin 3 MG TABLET 6 MG PO (19:39)
[2021-05-25] MEDS: traZODone HCL 100 MG TABLET PO (19:39)
[2021-05-25] MEDS: hydrOXYzine HCL 25 MG TABLET PO (19:43)
[2021-05-25 19:45] VITALS: BP 121/79; PULSE 71; RESP 16; TEMP 36.5; O2SAT 97
[2021-05-26] MEDS: Vitamin E (Dl,Tocopheryl Acet) 180 MG (400 UNIT) CAPSULE PO (08:23)
[2021-05-26] MEDS: Memantine HCl 10 MG TABLET PO ×2 (08:23→19:53)
[2021-05-26] MEDS: risperiDONE 3 MG TABLET PO (08:23)
[2021-05-26] MEDS: FLUoxetine HCl 20 MG CAPSULE 40 MG PO (08:23)
[2021-05-26 14:18] LABS: Ammonia 50 umol/L (13-55)
[2021-05-26 14:26] LABS: Alanine Aminotransferase 20 U/L (0-40); Albumin Level 3.8 g/dL (3.5-5.0); Alkaline Phosphatase 79 U/L (39-117); Aspartate Amino Transferase 13 U/L (5-37); Bilirubin Direct < 0.2 mg/dL (0.0-0.5); Bilirubin Total 0.3 mg/dL (0.0-1.0); Total Protein 6.5 g/dL (6.5-8.0)
[2021-05-26 14:31] LABS: Valproate 62.6 mcg/mL (50.0-100.0)
--- NOTE | 2021-05-26 16:51 | P.PNPSI_ITS ---
Subjective Subjective Date of Service: 05/26/21 Reason For Visit: psychosis, mood disorder Interim History: Patient lying in bed; says he accidentally told the emergency room doctor to go way because was tired but agrees to have him come back to draw labs. He denies any complaints and has no requests. 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 Inte rmittently interactive in the milieu. Denies any medication side effects. Mental Status Exam Mental Status Exam Narrative: Appearance: shirtless; fair hygiene in NAD Behavior: calm, friendly psychomotor:no agitation or retardation noted Speech:notable for expressive aphasia, difficulty finding words, describing situations, frustration related to this, comprehension is intact. Spontaneous, loud at times. Thought process:goal oriented Thought content: on tx; no signs of psychosis, asking for help to control his behavior Mood: ok Affect: brightens at times, can be irritable when demands not met SI:denies HI:denies VH/AH:none Delusions:none Insight/judgment:poor x 2. Diagnostics Vital Signs (24Hr): Vital Signs - 24 hr 05/25/21 19:45 Temperature 97.7 F Pulse Rate 71 Respiratory Rate 16 Blood Pressure 121/79 Pulse Oximetry 97 BMI result Body Mass Index 33.6 Labs Results: 05/12/21 11:11 05/12/21 11:11 Labs: Laboratory Results - last 48 hr 05/26/21 05/26/21 13:51 13:51 Total Bilirubin 0.3 Direct Bilirubin < 0.2 AST 13 D ALT 20 Alkaline Phosphatase 79 D Ammonia 50 Total Protein 6.5 Albumin 3.8 Valproic Acid 62.6 Imaging Radiology Impressions: ITS Impressions Head CT 05/23/21 13:32 IMPRESSION: No acute findings. Medications Medications Current Medications Acetaminophen (Acetaminophen 325 Mg Tablet) 650 mg PO Q6H PRN PRN Reason: Headache/Pain Mild Scale (1-3) Al Hydroxide/Mg Hydroxide (Magnesium Hydrox/Alum Hydrox 30 Ml Oral.Susp) 30 ml PO Q6H PRN PRN Reason: Heartburn/Nausea Divalproex Sodium (Divalproex Sodium Er 500 Mg Tab.Er.24h) 1,500 mg PO DAILY@ 1900 [facility] Last Admin: 05/25/21 19:27 Dose: 1,500 mg Documented by: Fluoxetine HCl (Fluoxetine Hcl 20 Mg Capsule) 40 mg PO DAILY [facility] Last Admin: 05/26/21 08:23 Dose: 40 mg Documented by: Hydroxyzine HCl (Hydroxyzine Hcl 25 Mg Tablet) 25 mg PO BEDTIME PRN PRN Reason: Anxiety Last Admin: 05/25/21 19:43 Dose: 25 mg Documented by: Magnesium Hydroxide (Milk Of Magnesia 30 Ml Oral.Susp) 30 ml PO DAILY PRN PRN Reason: Constipation Melatonin (Melatonin 3 Mg Tablet) 6 mg PO BEDTIME PRN PRN Reason: Insomnia Last Admin: 05/25/21 19:39 Dose: 6 mg Documented by: Memantine (Memantine Hcl 10 Mg Tablet) 10 mg PO BID [facility] Last Admin: 05/26/21 08:23 Dose: 10 mg Documented by: Risperidone (Risperidone 3 Mg Tablet) 3 mg PO DAILY [facility] Last Admin: 05/26/21 08:23 Dose: 3 mg Documented by: Risperidone (Risperidone 2 Mg Tablet) 4 mg PO DAILY@1900 [facility] Last Admin: 05/25/21 19:27 Dose: 4 mg Documented by: Trazodone HCl (Trazodone Hcl 100 Mg Tablet) 100 mg PO BEDTIME PRN PRN Reason: Insomnia Last Admin: 05/25/21 19:39 Dose: 100 mg Documented by: Vitamin E (Vitamin E (Dl,Tocopheryl Acet) 180 Mg (400 Unit) Capsule) 180 mg PO DAILY [facility] Last Admin: 05/26/21 08:23 Dose: 180 mg Documented by: Allergies Allergies Allergy/AdvReac Type Severity Reaction Status Date / Time No Known Allergies Allergy Verified 04/19/21 11:08 Assessment & Plan Assessment & Plan (1) Intermittent explosive disorder in adult: Status: Acute Code(s): F63.81 - Intermittent explosive disorder (2) OCD (obsessive compulsive disorder): Status: Acute Code(s): F42.9 - Obsessive-compulsive disorder, unspecified (3) Jalyn onychomycosis: Status: Acute Code(s): B37.2 - Candidiasis of skin and nail (4) Sebaceous cyst of scrotum: Status: Acute Code(s): L72.3 - Sebaceous cyst (5) Expressive language impairment: Status: Acute Code(s): F80.1 - Expressive language disorder Assessment and Plan: Pt with difficulty producing grammatical sentences, speech limited to short sentences of 4 words or less, difficulty finding right sound or/and right word. Pt's comprehension appears fairly intact. Assessment and Plan: Mr. Fowler is a 41 year-old male with unclear psychiatric hx- explosive behaviors, expressive language disorder noted (difficulty finding words and expressing himself, notable frustration as he tried to explain to us events leading to this admission), concrete in his thinking, ? underlying cognitive impairments developmental. He reports hx of OCD (does have particular ways of organizing things) and Touretts syndrome- not sure how accurate this is. No signs of psychosis, non per staff noted. covering 05/25/21 -presents as stable -will get Depakote level and associated labs on 05/26 -social Work reports that [facility] plans to him return 05/26/21 No changes in presentation Depakote level within normal limits LFTs and ammonia within normal limits Continue current regimen PLAN 1. Admit to M5, CV 15 minutes 2.Depakote ER 1500mg po qhs (depakote level 05/21 is 51), continue risperidone, continue prozac 40mg po daily 3. Collateral information from Dr. Jack Nguyen on 05/22: as reported by staff depakote most effective for explosive behaviors, namenda not active rx no clear reason for this medication therefore will be discontinued. Pt reports namenda was prescribed for aggression and thinks it was helpful. Pt wants to continue namenda. Other off label uses of namenda include adjunt for OCD, aggression in TBI. 4. Obtain collateral information 5. Aftercare planning I spent minutes with the patient and/or on the patient floor today, greater than?50% of which was spent counseling/coordinating care. Reason for contiued inpatient stay Substantial Risk for: med/psych decompensation
[2021-05-26] MEDS: Divalproex Sodium ER 500 MG TAB.ER.24H 1500 MG PO (19:52)
[2021-05-26] MEDS: Melatonin 3 MG TABLET 6 MG PO (19:52)
[2021-05-26] MEDS: risperiDONE 2 MG TABLET 4 MG PO (19:53)
[2021-05-26 19:55] VITALS: BP 126/80; PULSE 76; TEMP 36.3; O2SAT 97
[2021-05-27] MEDS: Vitamin E (Dl,Tocopheryl Acet) 180 MG (400 UNIT) CAPSULE PO (09:04)
[2021-05-27] MEDS: risperiDONE 3 MG TABLET PO (09:04)
[2021-05-27] MEDS: FLUoxetine HCl 20 MG CAPSULE 40 MG PO (09:04)
[2021-05-27] MEDS: Memantine HCl 10 MG TABLET PO ×2 (09:05→19:51)
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
[2021-05-27 19:45] VITALS: BP 128/70; PULSE 108; RESP 20; TEMP 36.3; O2SAT 96
[2021-05-27] MEDS: Divalproex Sodium ER 500 MG TAB.ER.24H 1500 MG PO (19:50)
[2021-05-27] MEDS: Melatonin 3 MG TABLET 6 MG PO (19:51)
[2021-05-27] MEDS: risperiDONE 2 MG TABLET 4 MG PO (19:51)
[2021-05-27] MEDS: traZODone HCL 100 MG TABLET PO (20:00)
[2021-05-27] MEDS: hydrOXYzine HCL 25 MG TABLET PO (20:00)
[2021-05-28] MEDS: Memantine HCl 10 MG TABLET PO ×2 (09:16→19:31)
[2021-05-28] MEDS: FLUoxetine HCl 20 MG CAPSULE 40 MG PO (09:16)
[2021-05-28] MEDS: Vitamin E (Dl,Tocopheryl Acet) 180 MG (400 UNIT) CAPSULE PO (09:16)
[2021-05-28] MEDS: risperiDONE 3 MG TABLET PO (09:16)
--- NOTE | 2021-05-28 16:14 | HO.PSYCHPN ---
Subjective Subjective Date of Service: 05/28/21 Reason For Visit: psychosis, mood disorder Interim History: Patient says he is doing fine, denies any SI or HI or AVH. [employer] explained that hospitalist was consulted and asked to come and assess anal fissure. Medication Compliance: Yes Side effects from medications: No Mental Status Exam Mental Status Exam Narrative: Appearance: hospital gown; marginal hygiene Behavior: calm, cooperative; intermittently making inappropriate sexualized comments (though this may be baseline) psychomotor:no agitation or retardation noted Speech:notable for expressive aphasia, difficulty finding words, describing situations, frustration related to this, comprehension is intact. Spontaneous, loud at times. Thought process:goal oriented Thought content: on tx; no signs of psychosis, asking for help to control his behavior Mood: ok Affect: brightens at times, can be irritable when demands not met SI:denies HI:denies VH/AH:none Delusions:none Insight/judgment:impaired but possibly close to baseline Diagnostics Vital Signs (24Hr): Vital Signs - 24 hr 05/27/21 19:45 Temperature 97.4 F Pulse Rate 108 H Respiratory Rate 20 Blood Pressure 128/70 Pulse Oximetry 96 BMI result Body Mass Index 33.6 Labs Results: 05/12/21 11:11 05/12/21 11:11 Imaging Radiology Impressions: ITS Impressions Head CT 05/23/21 13:32 IMPRESSION: No acute findings. Medications Medications Current Medications Acetaminophen (Acetaminophen 325 Mg Tablet) 650 mg PO Q6H PRN PRN Reason: Headache/Pain Mild Scale (1-3) Al Hydroxide/Mg Hydroxide (Magnesium Hydrox/Alum Hydrox 30 Ml Oral.Susp) 30 ml PO Q6H PRN PRN Reason: Heartburn/Nausea Divalproex Sodium (Divalproex Sodium Er 500 Mg Tab.Er.24h) 1,500 mg PO DAILY@1900 [facility] Last Admin: 05/27/21 19:50 Dose: 1,500 mg Documented by: Fluoxetine HCl (Fluoxetine Hcl 20 Mg Capsule) 40 mg PO DAILY [facility] Last Admin: 05/28/21 09:16 Dose: 40 mg Documented by: Hydroxyzine HCl (Hydroxyzine Hcl 25 Mg Tablet) 25 mg PO BEDTIME PRN PRN Reason: Anxiety Last Admin: 05/27/21 20:00 Dose: 25 mg Documented by: Magnesium Hydroxide (Milk Of Magnesia 30 Ml Oral.Susp) 30 ml PO DAILY PRN PRN Reason: Constipation Melatonin (Melatonin 3 Mg Tablet) 6 mg PO BEDTIME PRN PRN Reason: Insomnia Last Admin: 05/27/21 19:51 Dose: 6 mg Documented by: Memantine (Memantine Hcl 10 Mg Tablet) 10 mg PO BID [facility] Last Admin: 05/28/21 09:16 Dose: 10 mg Documented by: Risperidone (Risperidone 3 Mg Tablet) 3 mg PO DAILY [facility] Last Admin: 05/28/21 09:16 Dose: 3 mg Documented by: Risperidone (Risperidone 2 Mg Tablet) 4 mg PO DAILY@1900 [facility] Last Admin: 05/27/21 19:51 Dose: 4 mg Documented by: Trazodone HCl (Trazodone Hcl 100 Mg Tablet) 100 mg PO BEDTIME PRN PRN Reason: Insomnia Last Admin: 05/27/21 20:00 Dose: 100 mg Documented by: Vitamin E (Vitamin E (Dl,Tocopheryl Acet) 180 Mg (400 Unit) Capsule) 180 mg PO DAILY [facility] Last Admin: 05/28/21 09:16 Dose: 180 mg Documented by: Allergies Allergies Allergy/AdvReac Type Severity Reaction Status Date / Time No Known Allergies Allergy Verified 04/19/21 11:08 Assessment & Plan Assessment & Plan (1) Intermittent explosive disorder in adult: Status: Acute Code(s): F63.81 - Intermittent explosive disorder (2) OCD (obsessive compulsive disorder): Status: Acute Code(s): F42.9 - Obsessive-compulsive disorder, unspecified (3) Jalyn onychomycosis: Status: Acute Code(s): B37.2 - Candidiasis of skin and nail (4) Sebaceous cyst of scrotum: Status: Acute Code(s): L72.3 - Sebaceous cyst (5) Expressive language impairment: Status: Acute Code(s): F80.1 - Expressive language disorder Assessment and Plan: Pt with difficulty producing grammatical sentences, speech limited to short sentences of 4 words or less, difficulty finding right sound or/and right word. Pt's comprehension appears fairly intact. Assessment and Plan: Mr. Fowler is a 41 year-old male with unclear psychiatric hx- explosive behaviors, expressive language disorder noted (difficulty finding words and expressing himself, notable frustration as he tried to explain to us events leading to this admission), concrete in his thinking, ? underlying cognitive impairments developmental. He reports hx of OCD (does have particular ways of organizing things) and Touretts syndrome- not sure how accurate this is. No signs of psychosis, non per staff noted. covering 05/25/21 -presents as stable -will get Depakote level and associated labs on 05/26 -social Work reports that long-term plans to him return 05/26/21 No changes in presentation Depakote level within normal limits LFTs and ammonia within normal limits Continue current regimen 05/27/21 pt asked to have his buttocks examined for what he says is a Cyst or abscess or something. He said that he was told it was examined on admission and negative; poem writer reviewed admission note and exam from the ED which does say area was examined and exam was negative nothing was found (ED note on 05/12/21). However, [employer], accompanied by nursing staff, examined buttocks and there is indeed a fissure the right side of the gluteal cleft. -hospitalist consult placed to assess 05/28/21 no changes to current treatment plan PLAN 1. Admit to M5, CV 15 minutes -hospitalist consult placed to assess fissure on right gluteal cleft -Depakote ER 1500mg po qhs (depakote level 05/21 is 51), continue risperidone, continue prozac 40mg po daily -Collateral information from Dr. Jack Nguyen on 05/22: as reported by staff depakote most effective for explosive behaviors, namenda not active rx no clear reason for this medication therefore will be discontinued. Pt reports namenda was prescribed for aggression and thinks it was helpful. Pt wants to continue namenda. Other off label uses of namenda include adjunt for OCD, aggression in TBI. -Obtain collateral information - Aftercare planning I spent minutes with the patient and/or on the patient floor today, greater than?50% of which was spent counseling/coordinating care. Reason for contiued inpatient stay Substantial Risk for: med/psych decompensation
[2021-05-28 18:50] VITALS: BP 118/73; PULSE 80; TEMP 36.4
[2021-05-28] MEDS: risperiDONE 2 MG TABLET 4 MG PO (19:29)
[2021-05-28] MEDS: traZODone HCL 100 MG TABLET PO (19:30)
[2021-05-28] MEDS: Divalproex Sodium ER 500 MG TAB.ER.24H 1500 MG PO (19:30)
[2021-05-28] MEDS: Melatonin 3 MG TABLET 6 MG PO (19:31)
[2021-05-29] MEDS: Vitamin E (Dl,Tocopheryl Acet) 180 MG (400 UNIT) CAPSULE PO (08:48)
[2021-05-29] MEDS: FLUoxetine HCl 20 MG CAPSULE 40 MG PO (08:48)
[2021-05-29] MEDS: risperiDONE 3 MG TABLET PO (08:48)
[2021-05-29] MEDS: Memantine HCl 10 MG TABLET PO ×2 (08:48→19:58)
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
[2021-05-29 16:45] VITALS: BP 133/70; PULSE 79; TEMP 36.4
[2021-05-29] MEDS: Divalproex Sodium ER 500 MG TAB.ER.24H 1500 MG PO (19:57)
[2021-05-29] MEDS: traZODone HCL 100 MG TABLET PO (19:58)
[2021-05-29] MEDS: Melatonin 3 MG TABLET 6 MG PO (19:58)
[2021-05-29] MEDS: risperiDONE 2 MG TABLET 4 MG PO (19:58)
[2021-05-30] MEDS: Memantine HCl 10 MG TABLET PO ×2 (09:08→20:05)
[2021-05-30] MEDS: Vitamin E (Dl,Tocopheryl Acet) 180 MG (400 UNIT) CAPSULE PO (09:08)
[2021-05-30] MEDS: FLUoxetine HCl 20 MG CAPSULE 40 MG PO (09:08)
[2021-05-30] MEDS: risperiDONE 3 MG TABLET PO (09:09)
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
[2021-05-30 18:00] VITALS: BP 129/85; PULSE 95; RESP 16; TEMP 35.9; O2SAT 97
[2021-05-30 18:31] LABS: Valproate 65.9 mcg/mL (50.0-100.0)
[2021-05-30] MEDS: Divalproex Sodium ER 500 MG TAB.ER.24H 1500 MG PO (20:05)
[2021-05-30] MEDS: risperiDONE 2 MG TABLET 4 MG PO (20:05)
[2021-05-30] MEDS: Melatonin 3 MG TABLET 6 MG PO (20:06)
[2021-05-30] MEDS: traZODone HCL 100 MG TABLET PO (20:06)
[2021-05-31 06:00] VITALS: BP 130/87; PULSE 88; TEMP 36.2; O2SAT 96
[2021-05-31 07:00] VITALS: BMI 34.7
[2021-05-31] MEDS: FLUoxetine HCl 20 MG CAPSULE 40 MG PO (08:45)
[2021-05-31] MEDS: Vitamin E (Dl,Tocopheryl Acet) 180 MG (400 UNIT) CAPSULE PO (08:45)
[2021-05-31] MEDS: Memantine HCl 10 MG TABLET PO ×2 (08:46→18:55)
[2021-05-31] MEDS: risperiDONE 3 MG TABLET PO (08:46)
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
[2021-05-31] MEDS: Melatonin 3 MG TABLET 6 MG PO (18:55)
[2021-05-31] MEDS: Divalproex Sodium ER 500 MG TAB.ER.24H 1500 MG PO (18:56)
[2021-05-31] MEDS: traZODone HCL 100 MG TABLET PO (18:56)
[2021-05-31] MEDS: risperiDONE 2 MG TABLET 4 MG PO (18:56)
[2021-06-01 06:00] VITALS: BP 140/74; PULSE 75; TEMP 36.2; O2SAT 97
[2021-06-01] MEDS: Memantine HCl 10 MG TABLET PO ×2 (08:37→19:48)
[2021-06-01] MEDS: risperiDONE 3 MG TABLET PO (08:37)
[2021-06-01] MEDS: Vitamin E (Dl,Tocopheryl Acet) 180 MG (400 UNIT) CAPSULE PO (08:37)
[2021-06-01] MEDS: FLUoxetine HCl 20 MG CAPSULE 60 MG PO (08:37)
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
[2021-06-01 19:45] VITALS: BP 117/80; PULSE 77
[2021-06-01] MEDS: traZODone HCL 100 MG TABLET PO (19:49)
[2021-06-01] MEDS: Divalproex Sodium ER 500 MG TAB.ER.24H 1500 MG PO (19:49)
[2021-06-01] MEDS: risperiDONE 2 MG TABLET 4 MG PO (19:50)
[2021-06-01] MEDS: Melatonin 3 MG TABLET 6 MG PO (19:50)
[2021-06-02] MEDS: Vitamin E (Dl,Tocopheryl Acet) 180 MG (400 UNIT) CAPSULE PO (08:37)
[2021-06-02] MEDS: risperiDONE 3 MG TABLET PO (08:37)
[2021-06-02] MEDS: Memantine HCl 10 MG TABLET PO ×2 (08:37→19:06)
[2021-06-02] MEDS: FLUoxetine HCl 20 MG CAPSULE 60 MG PO (08:37)
--- NOTE | 2021-06-02 11:47 | P.PNPSI_ITS ---
Subjective Subjective Date of Service: 06/02/21 Reason For Visit: psychosis, mood disorder Subjective Notes: Conditional Voluntary Interim History: Shadi was somewhat intrusive and had poor boundaries. His ADLs are poor. He has not had any behaviorak dyscontrol. Medication Compliance: Yes Side effects from medications: No Attending Groups: Intermittent Review of Systems Acute medical concerns: No Mental Status Exam Mental Status Exam Patient Appearance: Disheveled Patient Orientation: Person and Place Level of Consciousness: Awake Patient Behavior: Dependent, Talkative and Hypersexual Mood Description: Calm Affect Description: Calm Speech Pattern: Aphasic Hallucinations: None Delusions: Not Present Thought Content: positive for Circumstantial, negative for Suicidal Ideation or negative for Homicidal Ideation Judgement: Poor Diagnostics Vital Signs (24Hr): Vital Signs - 24 hr 06/01/21 19:45 Pulse Rate 77 Blood Pressure 117/80 BMI result Body Mass Index 34.7 Labs Results: 05/12/21 11:11 05/12/21 11:11 Imaging Radiology Impressions: ITS Impressions Head CT 05/23/21 13:32 IMPRESSION: No acute findings. Medications Medications Current Medications Acetaminophen (Acetaminophen 325 Mg Tablet) 650 mg PO Q6H PRN PRN Reason: Headache/Pain Mild Scale (1-3) Al Hydroxide/Mg Hydroxide (Magnesium Hydrox/Alum Hydrox 30 Ml Oral.Susp) 30 ml PO Q6H PRN PRN Reason: Heartburn/Nausea Divalproex Sodium (Divalproex Sodium Er 500 Mg Tab.Er.24h) 1,500 mg PO DAILY@1900 [facility] Last Admin: 06/01/21 19:49 Dose: 1,500 mg Documented by: Fluoxetine HCl (Fluoxetine Hcl 20 Mg Capsule) 60 mg PO DAILY [facility] Last Admin: 06/02/21 08:37 Dose: 60 mg Documented by: Hydroxyzine HCl (Hydroxyzine Hcl 25 Mg Tablet) 25 mg PO BEDTIME PRN PRN Reason: Anxiety Last Admin: 05/27/21 20:00 Dose: 25 mg Documented by: Magnesium Hydroxide (Milk Of Magnesia 30 Ml Oral.Susp) 30 ml PO DAILY PRN PRN Reason: Constipation Melatonin (Melatonin 3 Mg Tablet) 6 mg PO BEDTIME PRN PRN Reason: Insomnia Last Admin: 06/01/21 19:50 Dose: 6 mg Documented by: Memantine (Memantine Hcl 10 Mg Tablet) 10 mg PO BID [facility] Last Admin: 06/02/21 08:37 Dose: 10 mg Documented by: Risperidone (Risperidone 3 Mg Tablet) 3 mg PO DAILY [facility] Last Admin: 06/02/21 08:37 Dose: 3 mg Documented by: Risperidone (Risperidone 2 Mg Tablet) 4 mg PO DAILY@1900 [facility] Last Admin: 06/01/21 19:50 Dose: 4 mg Documented by: Trazodone HCl (Trazodone Hcl 100 Mg Tablet) 100 mg PO BEDTIME PRN PRN Reason: Insomnia Last Admin: 06/01/21 19:49 Dose: 100 mg Documented by: Vitamin E (Vitamin E (Dl,Tocopheryl Acet) 180 Mg (400 Unit) Capsule) 180 mg PO DAILY [facility] Last Admin: 06/02/21 08:37 Dose: 180 mg Documented by: Allergies Allergies Allergy/AdvReac Type Severity Reaction Status Date / Time No Known Allergies Allergy Verified 04/19/21 11:08 Assessment & Plan Assessment & Plan (1) Intermittent explosive disorder in adult: Status: Acute Code(s): F63.81 - Intermittent explosive disorder (2) OCD (obsessive compulsive disorder): Status: Acute Code(s): F42.9 - Obsessive-compulsive disorder, unspecified (3) Jalyn onychomycosis: Status: Acute Code(s): B37.2 - Candidiasis of skin and nail (4) Sebaceous cyst of scrotum: Status: Acute Code(s): L72.3 - Sebaceous cyst (5) Expressive language impairment: Status: Acute Code(s): F80.1 - Expressive language disorder Assessment and Plan: Pt with difficulty producing grammatical sentences, speech limited to short sentences of 4 words or less, difficulty finding right sound or/and right word. Pt's comprehension appears fairly intact. Assessment and Plan: Mr. Fowler is a 41 year-old male with unclear psychiatric hx- explosive behaviors, expressive language disorder noted (difficulty finding words and expressing himself, notable frustration as he tried to explain to us events leading to this admission), concrete in his thinking, ? underlying cognitive impairments developmental. He reports hx of OCD (does have particular ways of organizing things) and Touretts syndrome- not sure how accurate this is. No signs of psychosis, non per staff noted. covering 05/25/21 -presents as stable -will get Depakote level and associated labs on 05/26 -social Work reports that [facility] plans to him return 05/26/21 No changes in presentation Depakote level within normal limits LFTs and ammonia within normal limits Continue current regimen 05/27/21 pt asked to have his buttocks examined for what he says is a Cyst or abscess or something. He said that he was told it was examined on admission and negative; designer writer reviewed admission note and exam from the ED which does say area was examined and exam was negative nothing was found (ED note on 05/12/21). However, Infrastructure Director, accompanied by nursing staff, examined buttocks and there is indeed a fissure the right side of the gluteal cleft. -hospitalist consult placed to assess 05/28/21 no changes to current treatment plan 06/02/21 No changes to treatment plan PLAN 1. Admit to M5, CV 15 minutes -hospitalist consult placed to assess fissure on right gluteal cleft -Depakote ER 1500mg po qhs (depakote level 05/21 is 51), continue risperidone, continue prozac 40mg po daily -Collateral information from Dr. Jack Nguyen on 05/22: as reported by staff depakote most effective for explosive behaviors, namenda not active rx no clear reason for this medication therefore will be discontinued. Pt reports namenda was prescribed for aggression and thinks it was helpful. Pt wants to continue namenda. Other off label uses of namenda include adjunt for OCD, aggression in TBI. -Obtain collateral information - Aftercare planning I spent minutes with the patient and/or on the patient floor today, greater than?50% of which was spent counseling/coordinating care. Patient educated on: diagnosis Informed Consent: further education needed Reason for contiued inpatient stay Substantial Risk for: rapid decompensation
[2021-06-02 18:00] VITALS: BP 139/79; PULSE 77; TEMP 36.6
[2021-06-02] MEDS: Divalproex Sodium ER 500 MG TAB.ER.24H 1500 MG PO (19:02)
[2021-06-02] MEDS: risperiDONE 2 MG TABLET 4 MG PO (19:02)
[2021-06-03 08:30] VITALS: RESP 16
[2021-06-03] MEDS: Memantine HCl 10 MG TABLET PO ×2 (08:47→18:57)
[2021-06-03] MEDS: Vitamin E (Dl,Tocopheryl Acet) 180 MG (400 UNIT) CAPSULE PO (08:47)
[2021-06-03] MEDS: FLUoxetine HCl 20 MG CAPSULE 60 MG PO (08:48)
[2021-06-03] MEDS: risperiDONE 3 MG TABLET PO (08:49)
--- NOTE | 2021-06-03 17:59 | HO.PSYCHPN ---
Subjective Subjective Date of Service: 06/03/21 Reason For Visit: psychosis, mood disorder Subjective Notes: Conditional Voluntary Interim History: Shadi was somewhat intrusive and had poor boundaries. His ADLs are poor. He has been refusing to have VS done. He remains with pronounced aphasia though he is able to make himself understood. He has not had any behaviorl dyscontrol. Review of Systems Constitutional: Reports no additional constitutional complaints, Denies body ache(s), Denies chills, Denies fatigue, Denies fever(s), Denies headache(s), Denies malaise and Denies weakness Eyes: Reports no additional eye complaints and Denies diplopia Denies vertigo, Denies dizziness, Denies otalgia, Denies headache(s), Denies mouth pain, Denies post nasal drip, Denies sinus pain, Denies sinus pressure, Denies sore throat and Denies throat swelling Cardiovascular: Denies chest pain, Denies syncope, Denies rapid heart rate, Denies irregular heart rhythm, Denies leg edema, Denies lightheadedness, Denies Loss of Consciousness, Denies palpitations and Denies dyspnea Respiratory: Denies chest congestion, Denies cough, Denies pain with cough and Denies dyspnea Gastrointestinal: Denies abdominal pain, Denies hematochezia, Denies constipation, Denies diarrhea and Denies vomiting Genitourinary: Reports testicular mass Musculoskeletal: Reports no additional musculoskeletal complaints Denies confusion, Denies vertigo, Denies dizziness, Denies syncope, Denies headache(s) and Denies weakness Psychiatric: Denies anxiety, Denies confusion and Denies depression Endocrine: Denies fatigue and Denies palpitations Allergic/Immunologic: Denies throat swelling Mental Status Exam Mental Status Exam Narrative: Appearance: hospital gown; marginal hygiene Behavior: calm, cooperative; intermittently making inappropriate sexualized comments (though this may be baseline) psychomotor:no agitation or retardation noted Speech:notable for expressive aphasia, difficulty finding words, describing situations, frustration related to this, comprehension is intact. Spontaneous, loud at times. Thought process:goal oriented Thought content: on tx; no signs of psychosis, asking for help to control his behavior Mood: ok Affect: brightens at times, can be irritable when demands not met SI:denies HI:denies VH/AH:none Delusions:none Insight/judgment:impaired but possibly close to baseline Patient Appearance: Disheveled Patient Orientation: Person and Place Level of Consciousness: Awake Patient Behavior: Dependent, Talkative and Hypersexual Mood Description: Calm Affect Description: Calm Speech Pattern: Aphasic Diagnostics Vital Signs (24Hr): Vital Signs - 24 hr 06/02/21 18:00 06/03/21 08:30 Temperature 98 F Pulse Rate 77 Respiratory Rate 16 Blood Pressure 139/79 BMI result Body Mass Index 34.7 Labs Results: 05/12/21 11:11 05/12/21 11:11 Imaging Radiology Impressions: ITS Impressions Head CT 05/23/21 13:32 IMPRESSION: No acute findings. Medications Medications Current Medications Acetaminophen (Acetaminophen 325 Mg Tablet) 650 mg PO Q6H PRN PRN Reason: Headache/Pain Mild Scale (1-3) Al Hydroxide/Mg Hydroxide (Magnesium Hydrox/Alum Hydrox 30 Ml Oral.Susp) 30 ml PO Q6H PRN PRN Reason: Heartburn/Nausea Divalproex Sodium (Divalproex Sodium Er 500 Mg Tab.Er.24h) 1,500 mg PO DAILY@1900 [facility] Last Admin: 06/02/21 19:02 Dose: 1,500 mg Documented by: Fluoxetine HCl (Fluoxetine Hcl 20 Mg Capsule) 60 mg PO DAILY [facility] Last Admin: 06/03/21 08:48 Dose: 60 mg Documented by: Hydroxyzine HCl (Hydroxyzine Hcl 25 Mg Tablet) 25 mg PO BEDTIME PRN PRN Reason: Anxiety Last Admin: 05/27/21 20:00 Dose: 25 mg Documented by: Magnesium Hydroxide (Milk Of Magnesia 30 Ml Oral.Susp) 30 ml PO DAILY PRN PRN Reason: Constipation Melatonin (Melatonin 3 Mg Tablet) 6 mg PO BEDTIME PRN PRN Reason: Insomnia Last Admin: 06/01/21 19:50 Dose: 6 mg Documented by: Memantine (Memantine Hcl 10 Mg Tablet) 10 mg PO BID [facility] Last Admin: 06/03/21 08:47 Dose: 10 mg Documented by: Risperidone (Risperidone 3 Mg Tablet) 3 mg PO DAILY [facility] Last Admin: 06/03/21 08:49 Dose: 3 mg Documented by: Risperidone (Risperidone 2 Mg Tablet) 4 mg PO DAILY@1900 [facility] Last Admin: 06/02/21 19:02 Dose: 4 mg Documented by: Trazodone HCl (Trazodone Hcl 100 Mg Tablet) 100 mg PO BEDTIME PRN PRN Reason: Insomnia Last Admin: 06/01/21 19:49 Dose: 100 mg Documented by: Vitamin E (Vitamin E (Dl,Tocopheryl Acet) 180 Mg (400 Unit) Capsule) 180 mg PO DAILY JANET Last Admin: 06/03/21 08:47 Dose: 180 mg Documented by: Allergies Allergies Allergy/AdvReac Type Severity Reaction Status Date / Time No Known Allergies Allergy Verified 04/19/21 11:08 Assessment & Plan Assessment & Plan (1) Intermittent explosive disorder in adult: Status: Acute Code(s): F63.81 - Intermittent explosive disorder (2) OCD (obsessive compulsive disorder): Status: Acute Code(s): F42.9 - Obsessive-compulsive disorder, unspecified (3) Jalyn onychomycosis: Status: Acute Code(s): B37.2 - Candidiasis of skin and nail (4) Sebaceous cyst of scrotum: Status: Acute Code(s): L72.3 - Sebaceous cyst (5) Expressive language impairment: Status: Acute Code(s): F80.1 - Expressive language disorder Assessment and Plan: Pt with difficulty producing grammatical sentences, speech limited to short sentences of 4 words or less, difficulty finding right sound or/and right word. Pt's comprehension appears fairly intact. Assessment and Plan: Mr. Fowler is a 41 year-old male with unclear psychiatric hx- explosive behaviors, expressive language disorder noted (difficulty finding words and expressing himself, notable frustration as he tried to explain to us events leading to this admission), concrete in his thinking, ? underlying cognitive impairments developmental. He reports hx of OCD (does have particular ways of organizing things) and Touretts syndrome- not sure how accurate this is. No signs of psychosis, non per staff noted. covering 05/25/21 -presents as stable -will get Depakote level and associated labs on 05/26 -social Work reports that [facility] to him return 05/26/21 No changes in presentation Depakote level within normal limits LFTs and ammonia within normal limits Continue current regimen 05/27/21 pt asked to have his buttocks examined for what he says is a Cyst or abscess or something. He said that he was told it was examined on admission and negative; technical writer and editor reviewed admission note and exam from the ED which does say area was examined and exam was negative nothing was found (ED note on 05/12/21). However, Termite Renewal Inspector, accompanied by nursing staff, examined buttocks and there is indeed a fissure the right side of the gluteal cleft. -hospitalist consult placed to assess 05/28/21 no changes to current treatment plan 06/02/21 No changes to treatment plan 06/03/21 No change to treatment plan PLAN 1. Admit to M5, CV 15 minutes -hospitalist consult placed to assess fissure on right gluteal cleft -Depakote ER 1500mg po qhs (depakote level 05/21 is 51), continue risperidone, continue prozac 40mg po daily -Collateral information from Dr. Jack Nguyen on 05/22: as reported by staff depakote most effective for explosive behaviors, namenda not active rx no clear reason for this medication therefore will be discontinued. Pt reports namenda was prescribed for aggression and thinks it was helpful. Pt wants to continue namenda. Other off label uses of namenda include adjunt for OCD, aggression in TBI. -Obtain collateral information - Aftercare planning I spent minutes with the patient and/or on the patient floor today, greater than?50% of which was spent counseling/coordinating care. Patient educated on: diagnosis Informed Consent: further education needed Reason for contiued inpatient stay Substantial Risk for: rapid decompensation
[2021-06-03 18:00] VITALS: BP 143/89; PULSE 100
[2021-06-03] MEDS: risperiDONE 2 MG TABLET 4 MG PO (18:57)
[2021-06-03] MEDS: Divalproex Sodium ER 500 MG TAB.ER.24H 1500 MG PO (18:57)
[2021-06-03] MEDS: traZODone HCL 100 MG TABLET PO (18:59)
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
[2021-06-04] MEDS: FLUoxetine HCl 20 MG CAPSULE 60 MG PO (09:33)
[2021-06-04] MEDS: Vitamin E (Dl,Tocopheryl Acet) 180 MG (400 UNIT) CAPSULE PO (09:34)
[2021-06-04] MEDS: risperiDONE 3 MG TABLET PO (09:34)
[2021-06-04] MEDS: Memantine HCl 10 MG TABLET PO (09:34)
== END 2021-06-04 10:26 | disposition home or self-care (01) | DRG 883 ==
LOC: HO.ED 17:30 → HO.PM5 05-15 12:33
PROVIDERS: Clinical Nurse Specialist Psychiatric/Mental Health, Adult; Physician Assistant; Admitting Provider Psychiatry & Neurology Psychiatry; Emergency Provider Emergency Medicine; PCP Internal Medicine; Visit Provider Social Worker
DX: F63.81 Intermittent explosive disorder (principal); F80.1 Expressive language disorder; F42.9 Obsessive-compulsive disorder, unspecified; B37.2 Candidiasis of skin and nail; L72.3 Sebaceous cyst; Z20.822 Contact with and (suspected) exposure to COVID-19; Z87.891 Personal history of nicotine dependence; Z79.899 Other long term (current) drug therapy
CPT/HCPCS: 36415; 70450; 80053; 80061; 80076; 80143; 80164; 80179; 80307; 82077; 82140; 82607; 82746; 83036; 84443; 85025; 87635; 99285

== ENCOUNTER → 2021-06-25 15:25 | Outpatient (BNVA) | payer MEDICARE, MEDICAID, SELFPAY | PROVIDERS: PCP Internal Medicine; Referring Provider Internal Medicine; Visit Provider Surgery | DX: K60.3 Anal fistula (principal) | CPT/HCPCS: 99212 ==

== ENCOUNTER 2021-06-27 10:12 | Outpatient (REF) | payer MEDICARE, MEDICAID, SELFPAY ==
--- NOTE | ~2021-06-27 | XR_ITS ---
EXAMINATION: XR LUMBOSACRAL SPINE CLINICAL INFORMATION: Low back pain COMPARISON: None TECHNIQUE: Three views of the lumbosacral spine. FINDINGS: There is normal lumbar lordosis. The vertebral heights and alignment is normal. There is mild loss of L5-S1 disc height. Rest the disc heights are normal. There is no visible acute fracture, dislocation or subluxation. No lytic process seen. The paravertebral soft tissues are normal. XR/XR lumbar spine 2-3V IMPRESSION: Mild degenerative disc changes L5-S1 disc level. No visible acute fracture or dislocation seen.
== END 2021-06-27 10:13 | disposition home or self-care (01) ==
LOC: HO.XRAY 10:12
PROVIDERS: PCP Physician Assistant; Visit Provider Physician Assistant
DX: M54.50 Low back pain, unspecified (principal)
CPT/HCPCS: 72100

== ENCOUNTER 2021-07-23 09:58 | Outpatient (RCR) | payer MEDICARE, MEDICAID, SELFPAY ==
--- NOTE | 2021-07-23 11:58 | MHC.PT.EP ---
[facility] [place] [facility] [place] Office [address] [phone] F: [phone] F: [phone] F: [phone] F: [phone] Physical Therapy Plan of Care Date of Evaluation: Date of Surgery: Diagnosis: ARTHRITIS OF BACK Assessment: 41 YO MALE REF TO PT W LBP- HE NOTES INTERMITTENT AND FLUCTUATING-> DENIES TRAUMA OR RADICULAR SXS. Pt IS UNEMPLOYED AND HE RESIDES IN A [facility] W REQ SOME ASSIST W MEAL PREP AND HIGHER LEVEL TASKS. OBJECTIVELY, Pt HAS DECR POSTURAL AWRENESS, WEAK ABDOM AND GLUTEAL MM, TIGHT HS/ CALVES/ POSTERIOR CHAIN, AND PAIN IN JODI LS REGION. HIS LBP CURRENTLY APPEARS TO BE POSTURAL/ SOFT TISSUE IMBALANCE IN NATURE. FUNCTIONALLY, Pt STATES HE LEADS A SEDENTARY LIFESTYLE- HIS LBP INCR W STANDING AND INCR WALKING AND AT TIMES W PROLONGED SITTING. Pt AGREED TO ATTEND PT 1 x WK TO ADDRESS POSTURE, PAIN MGMT, AND DEV A HEP AND W [facility] STAFF TO ASSIST/ ENCOURAGE CONTINUITY. 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 Manual therapy to restore motion and function. Therapeutic exercise to improve strength and flexibility. Neuromuscular re-education for posture and balance. Therapeutic activities to return to functional activities of daily living. Electronically signed by: Bobbi Gomez,PT Please sign and return to therapist. Thank you for your referral.
--- NOTE | 2021-08-03 07:34 | MHC.PT.DC ---
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 Electronically signed by: Bobbi Gomez,PT Please sign and return to therapist. Thank you for your referral.
== END 2021-08-03 07:41 | disposition home or self-care (01) ==
LOC: HO.PT 09:58
PROVIDERS: PCP Physician Assistant; Visit Provider Physician Assistant
DX: M54.50 Low back pain, unspecified (principal)
CPT/HCPCS: 97162; 97530

== ENCOUNTER 2021-10-26 14:10 | Inpatient (IN) | payer MEDICARE, MEDICAID, SELFPAY ==
[2021-10-26 14:15] VITALS: BP 136/80; PULSE 86; RESP 16; TEMP 36.8; O2SAT 97; BMI 25.4
--- NOTE | 2021-10-26 14:53 | PC.NURSE ---
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
[2021-10-26 15:28] LABS: COVID-19 Test Negative (Negative); IDNOW Serial# 16C4AD1C
[2021-10-26 15:48] LABS: Amphetamine Screen Urine Not Detected (Not Detect); Barbiturates, Urine Not Detected (Not Detect); Benzodiazepines Screen Urine Not Detected (Not Detect); Cannabinoid Screen Urine Not Detected (Not Detect); Cocaine Screen Urine Not Detected (Not Detect); Fentanyl, urine POSITIVE (Not Detect); Opiate Screen Urine Not Detected (Not Detect); Phencyclidine Screen Urine Not Detected (Not Detect)
--- NOTE | 2021-10-26 15:53 | ED_ITS ---
HPI - General Adult General Chief complaint: Psychiatric Symptoms Stated complaint: psych symptoms Time Seen by Provider: 10/26/21 15:53 History of Present Illness HPI narrative: This is a 41-year-old male with a history of intermittent explosive disorder, obsessive-compulsive disorder, anxiety and depression, who was sent in because he has been feeling that he needs to be admitted for psychiatric reasons again. Patient has experienced increased anxiety, and recently has medicine dose increased try to treat that. He nonetheless notes bouts of anxiety, has flashes some times where he feels like destroying something, but has not acted upon it. The patient denies being suicidal or wanting to hurt anybody. He denies hearing voices. Notes that he has ?spiritual?. He denies any physical complaints such as headache, chest pain, shortness of breath, abdominal pain, abdominal pain. His appetite has been normal. Related Data Home Medications Medication Instructions Recorded Confirmed divalproex 250 mg tablet,extended 1 tab PO BEDTIME 10/26/21 10/26/21 release 24 hr fluoxetine 40 mg capsule 80 mg PO DAILY 10/26/21 10/26/21 fluticasone propionate 50 1 spray intranasal BID PRN Nasal 10/26/21 10/26/21 mcg/actuation nasal Congestion spray,suspension hydroxyzine HCl 25 mg tablet 1 tab PO TID 10/26/21 10/26/21 melatonin 3 mg tablet 6 mg PO BEDTIME 10/26/21 10/26/21 memantine 10 mg tablet 1 tab PO BID 10/26/21 10/26/21 risperidone 3 mg tablet 1 tab PO QAM 10/26/21 10/26/21 risperidone 4 mg tablet 1 tab PO BEDTIME 10/26/21 10/26/21 trazodone 150 mg tablet 1 tab PO BEDTIME 10/26/21 10/26/21 vitamin E (dl, acetate) 180 mg 400 unit PO DAILY 10/26/21 10/26/21 (400 unit) capsule Previous Rx's Medication Instructions Recorded divalproex 500 mg tablet,extended 1,500 mg PO BEDTIME #90 tabs 06/04/21 release 24 hr (Depakote ER) acetaminophen 325 mg tablet 325 mg PO Q6H PRN pain 30 days 10/17/21 (Tylenol) #120 tabs Allergies Allergy/AdvReac Type Severity Reaction Status Date / Time No Known Allergies Allergy Verified 09/04/21 13:46 Review of Systems Review of Systems: Yes all other systems are reviewed and are negative Constitutional: Constitutional: Reports as per HPI and Denies fever(s) Eyes: Eyes: Reports as per HPI and Reports no additional eye complaints ENT: Reports system reviewed and no additional complaints, except as documented, Reports as per HPI, Denies nasal congestion, Denies nasal discharge and Denies sore throat Cardiovascular: Cardiovascular: Reports as per HPI, Denies chest pain and Denies dyspnea Respiratory: Respiratory: Reports as per HPI, Denies cough and Denies dyspnea Gastrointestinal: Gastrointestinal: Reports as per HPI, Denies abdominal pain, Denies diarrhea and Denies vomiting Genitourinary: Genitourinary: Reports as per HPI, Denies hematuria, Denies dysuria and Denies urinary frequency Musculoskeletal: Musculoskeletal: Reports no additional musculoskeletal complaints and Denies numbness Integumentary/Breasts: Skin/Breast: Reports as per HPI and Denies rash Neurologic: Reports as per HPI, Denies focal weakness and Denies numbness Psychiatric: Psychiatric: Reports as per HPI, Reports anxiety, Denies homicidal ideation and Denies suicidal ideation Endocrine: Endocrine: Reports no additional endocrine complaints and Reports as per HPI Hematologic/Lymphatic: Hematologic/Lymphatic: Reports no additional hematologic/lymphatic complaints, Reports as per HPI and Reports other (No peripheral edema) [facility] Past Medical History Medical History Anal fistula Anxiety and depression Obsessive compulsive disorder Screening for diabetes mellitus Screening for hyperlipidemia Surgical History No pertinent past surgical history Family History Family History Mother No problems noted. Father No problems noted. Other Substance use disorder Social History Social History Household Members: Other Household Members Other:: [facility] Housing: Other Housing Other:: [facility] Do you presently have visiting nurse or other home services: Yes (Lives in a residential.) Alcohol intake: never Patient Tobacco Use Status: Former Tobacco user Quit Date: January 2021 Tobacco use type: Cigarette Cigarettes Per Day: 15 Years Smoked: 17 years old e-Cigarette/Vaping Use: Never Used Second Hand Smoke Exposure: No Advance Directives: No Advance Directives Information Provided: No service: No Current occupational status: disabled Sexual orientation: Reports [id number] Cognitive needs: No Hearing needs: No Vision needs: No Physical Exam ED Vital Signs: Vital Signs - 24 hr 10/26/21 14:15 Temperature 98.2 F Pulse Rate 86 Respiratory Rate 16 Blood Pressure 136/80 Pulse Oximetry 97 Oxygen Delivery Method Room Air BMI result Body Mass Index 25.4 Const Other: Patient in no distress, is overall cooperative, puts out his elbow to do an elbow bump 3 different times, ambulates normally General: cooperative and no acute distress Orientation/consciousness: patient oriented x3 HENMT Head: Yes normal to inspection General nose exam: Normal external nose present Mouth: moist mucous membranes Throat: Yes posterior oropharynx normal, Yes tonsils normal and Yes uvula midline Eyes Eyelids: Yes eyelids normal Conjunctivae: conjunctivae normal Pupils: Equal, round and reactive pupils present Neck Neck: Yes supple Resp Effort & Inspection: normal respiratory effort Auscultation: clear to auscultation bilaterally Cardio Rate: regular rate Rhythm: regular rhythm Heart sounds: S1 normal heart sound present, S2 normal heart sound present, no g allops, no murmurs and no rubs GI Inspection: No distended Palpation (GI): Soft to palpation and nontender Auscultation: normal bowel sounds Skin General skin exam: other (Warm and dry) Neuro General: patient oriented x3 and CN's II-XI intact bilaterally Cranial nerves: Yes Equal, round and reactive pupils present Extrem General: Yes no pedal edema Psych Affect: normal affect Attitude: cooperative Medical Decision Making [facility] Narrative Medical decision making narrative: Patient feeling like his psychiatric symptoms including anxiety are getting worse. Patient is cooperative and denies any suicidal ideation homicidal ideation, denies hearing voices. Patient does not appear to be a danger to himself or others, however his facility had sent him in for evaluation because of reported increasing suicidal ideation. Patient is medically clear for psychiatric evaluation Lab Data Lab results reviewed: Yes I reviewed the patient's lab results. Result diagrams: 10/26/21 16:42 10/26/21 16:42 Labs: Lab Results 10/26/21 10/26/21 10/26/21 Range/Units 15:06 15:22 16:42 WBC 10.3 (4.8-10.8) X10*3/uL RBC 4.86 (4.60-5.80) X10*6/uL Hgb 14.6 (14.0-18.0) g/dl Hct 43.2 (42.0-52.0) % MCV 88.9 (80.0-98.0) fL MCH 30.0 (27.0-33.0) pg MCHC 33.8 (31.0-36.0) g/dl RDW 11.9 (11.0-16.0) % Plt Count 271 (160-400) X10*3/uL MPV 9.9 (9.4-12.4) fL Immature Gran % (Auto) 0.6 H (0.0-0.4) % Neut % (Auto) 53.1 (45-73) % Lymph % (Auto) 33.2 (20-40) % [place] % (Auto) 9.6 (2-11) % Eos % (Auto) 2.8 (0-4) % Baso % (Auto) 0.7 (0-2) % Lymph # (Auto) 3.4 (1.2-4.9) X10*3/uL [place] # (Auto) 1.0 (0.1-1.2) X10*3/uL Eos # (Auto) 0.3 (0.0-0.4) X10*3/uL Baso # (Auto) 0.1 (0.0-0.2) X10*3/uL Abs Immat Gran (auto) 0.06 H (0.00-0.03) X10*3/uL Absolute Neuts (auto) 5.5 (2.0-8.3) x10*3/uL Absolute Nucleated RBC 0.000 (0.0-0.012) X10*3/uL Nucleated RBC % (auto) 0.0 (0.0-0.2) /100WBC Sodium (135-145) mmol/L Potassium (3.3-5.1) mmol/L Chloride (96-108) mmol/L Carbon Dioxide (22-29) mmol/L Anion Gap (12-20) BUN (9-16) mg/dL Creatinine (0.5-1.4) mg/dL Estim Creat Clear Calc Estimated GFR Random Glucose (60-115) mg/dL Calcium (8.4-10.2) mg/dL Total Bilirubin (0.0-1.0) mg/dL AST (5-37) U/L ALT (0-40) U/L Alkaline Phosphatase (39-117) U/L Total Protein (6.5-8.0) g/dL Albumin (3.5-5.0) g/dL Urine Opiates Screen Not Detected (Not Detect) Urine Fentanyl Screen POSITIVE H (Not Detect) Ur Barbiturates Screen Not Detected (Not Detect) Valproic Acid (50.0-100.0) mcg/mL Ur Phencyclidine Scrn Not Detected (Not Detect) Ur Amphetamines Screen Not Detected (Not Detect) U Benzodiazepines Scrn Not Detected (Not Detect) Urine Cocaine Screen Not Detected (Not Detect) U Marijuana (THC) Screen Not Detected (Not Detect) Ethyl Alcohol mg/dL COVID-19 (NGOZI) Negative (Negative) COVID-19 Clin Com See Note 10/26/21 10/26/21 Range/Units 16:42 16:42 WBC (4.8-10.8) X10*3/uL RBC (4.60-5.80) X10*6/uL Hgb (14.0-18.0) g/dl Hct (42.0-52.0) % MCV (80.0-98.0) fL MCH (27.0-33.0) pg MCHC (31.0-36.0) g/dl RDW (11.0-16.0) % Plt Count (160-400) X10*3/uL MPV (9.4-12.4) fL Immature Gran % (Auto) (0.0-0.4) % Neut % (Auto) (45-73) % Lymph % (Auto) (20-40) % [place] % (Auto) (2-11) % Eos % (Auto) (0-4) % Baso % (Auto) (0-2) % Lymph # (Auto) (1.2-4.9) X10*3/uL [place] # (Auto) (0.1-1.2) X10*3/uL Eos # (Auto) (0.0-0.4) X10*3/uL Baso # (Auto) (0.0-0.2) X10*3/uL Abs Immat Gran (auto) (0.00-0.03) X10*3/uL Absolute Neuts (auto) (2.0-8.3) x10*3/uL Absolute Nucleated RBC (0.0-0.012) X10*3/uL Nucleated RBC % (auto) (0.0-0.2) /100WBC Sodium 139 (135-145) mmol/L Potassium 3.8 (3.3-5.1) mmol/L Chloride 102 (96-108) mmol/L Carbon Dioxide 27 (22-29) mmol/L Anion Gap 14 (12-20) BUN 13 (9-16) mg/dL Creatinine 0.90 (0.5-1.4) mg/dL Estim Creat Clear Calc 124.3 Estimated GFR > 60 Random Glucose 112 (60-115) mg/dL Calcium 9.4 (8.4-10.2) mg/dL Total Bilirubin 0.2 (0.0-1.0) mg/dL AST 15 (5-37) U/L ALT 17 (0-40) U/L Alkaline Phosphatase 77 (39-117) U/L Total Protein 7.1 (6.5-8.0) g/dL Albumin 4.2 (3.5-5.0) g/dL Urine Opiates Screen (Not Detect) Urine Fentanyl Screen (Not Detect) Ur Barbiturates Screen (Not Detect) Valproic Acid 52.5 (50.0-100.0) mcg/mL Ur Phencyclidine Scrn (Not Detect) Ur Amphetamines Screen (Not Detect) U Benzodiazepines Scrn (Not Detect) Urine Cocaine Screen (Not Detect) U Marijuana (THC) Screen (Not Detect) Ethyl Alcohol < 10 mg/dL COVID-19 (NGOZI) (Negative) COVID-19 Clin Com Discharge Plan Discharge Clinical Impression: Anxiety, Intermittent explosive disorder in adult Patient Disposition: Still a Patient Prescriptions: No Action acetaminophen [Tylenol] 325 mg tablet 325 mg PO Q6H PRN (Reason: pain) 30 Days Qty: 120 3RF divalproex [Depakote ER] 500 mg tablet extended release 24 hr 1,500 mg PO BEDTIME Qty: 90 1RF risperidone 4 mg tablet 1 tab PO BEDTIME risperidone 3 mg tablet 1 tab PO QAM trazodone 150 mg tablet 1 tab PO BEDTIME vitamin E (dl, acetate) 180 mg (400 unit) capsule 400 unit PO DAILY melatonin 3 mg tablet 6 mg PO BEDTIME hydroxyzine HCl 25 mg tablet 1 tab PO TID memantine 10 mg tablet 1 tab PO BID fluoxetine 40 mg capsule 80 mg PO DAILY fluticasone propionate 50 mcg/actuation spray,suspension 1 spray intranasal BID PRN (Reason: Nasal Congestion) divalproex 250 mg tablet extended release 24 hr 1 tab PO BEDTIME
[2021-10-26 16:48] LABS: MANUAL DIFF FLAG NO
[2021-10-26 16:50] LABS: Basophils Absolute Auto 0.1 X10*3/uL (0.0-0.2); Basophils Percent Auto 0.7 % (0-2); Eosinophils Absolute Auto 0.3 X10*3/uL (0.0-0.4); Eosinophils Percent Auto 2.8 % (0-4); Hematocrit 43.2 % (42.0-52.0); Hemoglobin 14.6 g/dl (14.0-18.0); Imm Gran Abs Auto 0.06 X10*3/uL (0.00-0.03); Imm Gran Pct Auto 0.6 % (0.0-0.4); Lymphocytes Absolute Auto 3.4 X10*3/uL (1.2-4.9); Lymphocytes Percent Auto 33.2 % (20-40); Mean Corpuscular HGB Conc 33.8 g/dl (31.0-36.0); Mean Corpuscular Volume 88.9 fL (80.0-98.0); Mean Platelet Volume 9.9 fL (9.4-12.4); Monocytes Percent Auto 9.6 % (2-11); Neutrophils Absolute Auto 5.5 x10*3/uL (2.0-8.3); Neutrophils Percent Auto 53.1 % (45-73); Platelet Count 271 X10*3/uL (160-400); Red Blood Count 4.86 X10*6/uL (4.60-5.80); Red Cell Distribution Width 11.9 % (11.0-16.0); White Blood Count 10.3 X10*3/uL (4.8-10.8)
[2021-10-26 17:04] LABS: Ethanol < 10 mg/dL
[2021-10-26 17:07] LABS: Alanine Aminotransferase 17 U/L (0-40); Albumin Level 4.2 g/dL (3.5-5.0); Alkaline Phosphatase 77 U/L (39-117); Anion Gap 14 (12-20); Aspartate Amino Transferase 15 U/L (5-37); Bilirubin Total 0.2 mg/dL (0.0-1.0); Blood Urea Nitrogen 13 mg/dL (9-16); Calcium 9.4 mg/dL (8.4-10.2); Carbon Dioxide 27 mmol/L (22-29); Chloride 102 mmol/L (96-108); Creatinine Clr Calc Pharmacy 124.3; Estimated Glomerular Filt Rate > 60; Glucose Random 112 mg/dL (60-115); Potassium 3.8 mmol/L (3.3-5.1); Sodium 139 mmol/L (135-145); Total Protein 7.1 g/dL (6.5-8.0)
[2021-10-26 17:12] LABS: Valproate 52.5 mcg/mL (50.0-100.0)
[2021-10-26] MEDS: Melatonin 3 MG TABLET 6 MG PO (21:09)
[2021-10-26] MEDS: risperiDONE 2 MG TABLET 4 MG PO (21:09)
[2021-10-26] MEDS: traZODone HCL 50 MG TABLET 150 MG PO (21:09)
[2021-10-26] MEDS: Divalproex Sodium ER 250 MG TAB.ER.24H PO (21:09)
[2021-10-26] MEDS: hydrOXYzine HCL 25 MG TABLET PO (21:10)
[2021-10-26] MEDS: Divalproex Sodium ER 500 MG TAB.ER.24H 1500 MG PO (21:10)
[2021-10-26] MEDS: Memantine HCl 10 MG TABLET PO (21:10)
[2021-10-26 23:55] VITALS: PULSE 68; TEMP 36.6; O2SAT 96
[2021-10-27 00:52] VITALS: BMI 33.3
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
[2021-10-27] MEDS: FLUoxetine HCl 20 MG CAPSULE 80 MG PO (09:08)
[2021-10-27] MEDS: Vitamin E (Dl,Tocopheryl Acet) 180 MG (400 UNIT) CAPSULE PO (09:09)
[2021-10-27] MEDS: Memantine HCl 10 MG TABLET PO ×2 (09:09→19:49)
[2021-10-27] MEDS: risperiDONE 3 MG TABLET PO (09:09)
--- NOTE | 2021-10-27 16:05 | P.HPPS_ITS ---
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 Recently at [facility] in May 2021. at that time medications included Depakote 1500 mg, Risperdal 3 mg morning and 4 mg at bedtime, Prozac 40 mg, Namenda 10 mg twice daily. Also reference to trazodone 150 mg. today presents as pleasant. 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 He did tend to perseverate on certain topics in a pleasant manner. Reported he needed a break because he was pounding his hands a lot and wanted to stop thing from escalating where he would punch and break things. Reports that he was feeling more anxious. Unable to articulate if there been any recent changes or stressors. Reports that 1 of his medications was recently adjusted and he wanted to be in the hospital so it would have time to have benefit. Feels safe in the hospital. Reports sleep is okay. No overt paranoia noted. No SI. No HI. No agitation. Feels comfortable with current roommate. Feels comfortable with others on the unit. Did state that he would like to work with previous nurse practitioner Di Chacon Past Psychiatric History: Inpatient: last admisison [facility] May 2021. OP: [facility] Dr. Jack Nguyen Suicide attempts: none Past trials: depakote, risperidone, namenda Medical Evaluation Reviewed: Yes [facility] Medical History Anal fistula Anxiety and depression Obsessive compulsive disorder Screening for diabetes mellitus Screening for hyperlipidemia Surgical History No pertinent past surgical history Family History: unknown- pt did not know Social History: lives in . Close to both parents, no children of his own not . Trauma History: denies Diagnostics Vital Signs (24Hr): Vital Signs - 24 hr 10/26/21 23:55 Temperature 97.8 F Pulse Rate 68 Pulse Oximetry 96 Oxygen Delivery Method Room Air BMI result Body Mass Index 33.3 Labs Results: 10/26/21 16:42 10/26/21 16:42 Labs: Laboratory Results - last 48 hr 10/26/21 10/26/21 10/26/21 15:06 15:22 16:42 WBC 10.3 RBC 4.86 Hgb 14.6 Hct 43.2 MCV 88.9 MCH 30.0 MCHC 33.8 RDW 11.9 Plt Count 271 MPV 9.9 Immature Gran % (Auto) 0.6 H Neut % (Auto) 53.1 Lymph % (Auto) 33.2 [place] % (Auto) 9.6 Eos % (Auto) 2.8 Baso % (Auto) 0.7 Lymph # (Auto) 3.4 [place] # (Auto) 1.0 Eos # (Auto) 0.3 Baso # (Auto) 0.1 Abs Immat Gran (auto) 0.06 H Absolute Neuts (auto) 5.5 Absolute Nucleated RBC 0.000 Nucleated RBC % (auto) 0.0 Sodium Potassium Chloride Carbon Dioxide Anion Gap BUN Creatinine Estim Creat Clear Calc Estimated GFR Random Glucose Calcium Total Bilirubin AST ALT Alkaline Phosphatase Total Protein Albumin Urine Opiates Screen Not Detected Urine Fentanyl Screen POSITIVE H Ur Barbiturates Screen Not Detected Valproic Acid Ur Phencyclidine Scrn Not Detected Ur Amphetamines Screen Not Detected U Benzodiazepines Scrn Not Detected Urine Cocaine Screen Not Detected U Marijuana (THC) Screen Not Detected Ethyl Alcohol COVID-19 (NGOZI) Negative COVID-19 Clin Com See Note 10/26/21 10/26/21 16:42 16:42 WBC RBC Hgb Hct MCV MCH MCHC RDW Plt Count MPV Immature Gran % (Auto) Neut % (Auto) Lymph % (Auto) [place] % (Auto) Eos % (Auto) Baso % (Auto) Lymph # (Auto) [place] # (Auto) Eos # (Auto) Baso # (Auto) Abs Immat Gran (auto) Absolute Neuts (auto) Absolute Nucleated RBC Nucleated RBC % (auto) Sodium 139 Potassium 3.8 Chloride 102 Carbon Dioxide 27 Anion Gap 14 BUN 13 Creatinine 0.90 Estim Creat Clear Calc 124.3 Estimated GFR > 60 Random Glucose 112 Calcium 9.4 Total Bilirubin 0.2 AST 15 ALT 17 Alkaline Phosphatase 77 Total Protein 7.1 Albumin 4.2 Urine Opiates Screen Urine Fentanyl Screen Ur Barbiturates Screen Valproic Acid 52.5 Ur Phencyclidine Scrn Ur Amphetamines Screen U Benzodiazepines Scrn Urine Cocaine Screen U Marijuana (THC) Screen Ethyl Alcohol < 10 COVID-19 (NGOZI) COVID-19 Clin Com Meds/Allergies Meds Home Medications Medication Instructions Recorded Confirmed Type divalproex 250 mg tablet,extended 1 tab PO BEDTIME 10/26/21 10/26/21 History release 24 hr fluoxetine 40 mg capsule 80 mg PO DAILY 10/26/21 10/26/21 History fluticasone propionate 50 1 spray intranasal BID PRN Nasal 10/26/21 10/26/21 History mcg/actuation nasal Congestion spray,suspension hydroxyzine HCl 25 mg tablet 1 tab PO TID 10/26/21 10/26/21 History melatonin 3 mg tablet 6 mg PO BEDTIME 10/26/21 10/26/21 History memantine 10 mg tablet 1 tab PO BID 10/26/21 10/26/21 History risperidone 3 mg tablet 1 tab PO QAM 10/26/21 10/26/21 History risperidone 4 mg tablet 1 tab PO BEDTIME 10/26/21 10/26/21 History trazodone 150 mg tablet 1 tab PO BEDTIME 10/26/21 10/26/21 History vitamin E (dl, acetate) 180 mg 400 unit PO DAILY 10/26/21 10/26/21 History (400 unit) capsule Allergies Allergies Allergy/AdvReac Type Severity Reaction Status Date / Time No Known Allergies Allergy Verified 09/04/21 13:46 Mental Status Exam Mental Status Exam Narrative: tall. Slightly disheveled. Hospital clothing. Pleasant. Is concrete and perseverative at times. Reported feeling more anxious and depressed recently and starting to lb his fists. Was clear he was not suicidal and did not want to hurt anybody, but did want to feel under better control before things escalated. No overt psychosis. Insight and judgment fair Assessment & Plan Assessment & Plan (1) Intermittent explosive disorder in adult: Status: Acute Code(s): F63.81 - Intermittent explosive disorder (2) OCD (obsessive compulsive disorder): Status: Acute Code(s): F42.9 - Obsessive-compulsive disorder, unspecified Plan presents with established history of OCD, intermittent explosive disorder and cognitive impairment unspecified. On review of medications appears that Depakote (1750mg bedtime), and Prozac (80mg) dose are higher since last discharge. Unclear timeframe regarding these. Patient does report this was recently and would like to keep medications the same to give them time to help him feel less anxious, depressed and frustrated. Patient educated on: therapeutic strategies Informed Consent: understands Reason for continued inpatient stay Substantial Risk for: rapid decompensation
[2021-10-27] MEDS: Divalproex Sodium ER 500 MG TAB.ER.24H 1500 MG PO (19:48)
[2021-10-27] MEDS: Melatonin 3 MG TABLET 6 MG PO (19:48)
[2021-10-27] MEDS: risperiDONE 2 MG TABLET 4 MG PO (19:48)
[2021-10-27] MEDS: Divalproex Sodium ER 250 MG TAB.ER.24H PO (19:49)
[2021-10-27] MEDS: traZODone HCL 50 MG TABLET 150 MG PO (19:49)
[2021-10-27] MEDS: hydrOXYzine HCL 25 MG TABLET PO (19:49)
[2021-10-27 20:21] VITALS: BP 127/88; PULSE 98; TEMP 37.1; O2SAT 96
[2021-10-28] MEDS: Memantine HCl 10 MG TABLET PO ×2 (09:47→18:36)
[2021-10-28] MEDS: Vitamin E (Dl,Tocopheryl Acet) 180 MG (400 UNIT) CAPSULE PO (09:47)
[2021-10-28] MEDS: risperiDONE 3 MG TABLET PO (09:47)
[2021-10-28] MEDS: FLUoxetine HCl 20 MG CAPSULE 80 MG PO (09:47)
[2021-10-28] MEDS: hydrOXYzine HCL 25 MG TABLET PO ×3 (09:48→18:36)
--- NOTE | 2021-10-28 11:11 | P.PNPSI_ITS ---
Subjective Subjective Date of Service: 10/28/21 Reason For Visit: anxiety Interim History: Patient seen and discussed with team. Pt has been activated, responding to OCD urges, isolative, complains of depression, poor sleep. Patient evaluated today and upon interview he reports Im alright while he taps T/W on the shoulder. Sleep was horrible, says he heard people laughing and screaming out there, heard doors slamming. Pt is banging on his desk. Says Im good with his meds, doesnt want changes. Says he is at the hospital because I need away time from the average lifestyle, I need a break or something. Feels safe. Medication Compliance: Yes Side effects from medications: No Attending Groups: No Review of Systems Acute medical concerns: No Medical Review of Systems: unchanged Mental Status Exam Mental Status Exam Narrative: A&O. Laying down in bed without clothes on, unkempt appearance, disheveled, room has food and trash surrounding his bed. Poor eye contact, inattentive. No Tics or Tremors. Has tapping behavior secondary to OCD. Activated, cooperative, engaged. Non-pressured speech, spontaneous with regular rate and rhythm, normal volume and prosody. No prolonged speech latency or dysarthria. Mood is ?fine,? affect is bizarre, incongruent. Denies SI/SIB/HI upon inquiry. Denies A/VH or delusional thought content. Thoughts are rigid, ruminative. No known cognitive or memory impairment. Insight/ Judgment limited but adequate. Diagnostics Vital Signs (24Hr): Vital Signs - 24 hr 10/27/21 20:21 Temperature 98.7 F Pulse Rate 98 Blood Pressure 127/88 Pulse Oximetry 96 Oxygen Delivery Method Room Air BMI result Body Mass Index 33.3 Labs Results: 10/26/21 16:42 10/26/21 16:42 Labs: Laboratory Results - last 48 hr 10/26/21 10/26/21 10/26/21 15:06 15:22 16:42 WBC 10.3 RBC 4.86 Hgb 14.6 Hct 43.2 MCV 88.9 MCH 30.0 MCHC 33.8 RDW 11.9 Plt Count 271 MPV 9.9 Immature Gran % (Auto) 0.6 H Neut % (Auto) 53.1 Lymph % (Auto) 33.2 Clay % (Auto) 9.6 Eos % (Auto) 2.8 Baso % (Auto) 0.7 Lymph # (Auto) 3.4 Clay # (Auto) 1.0 Eos # (Auto) 0.3 Baso # (Auto) 0.1 Abs Immat Gran (auto) 0.06 H Absolute Neuts (auto) 5.5 Absolute Nucleated RBC 0.000 Nucleated RBC % (auto) 0.0 Sodium Potassium Chloride Carbon Dioxide Anion Gap BUN Creatinine Estim Creat Clear Calc Estimated GFR Random Glucose Calcium Total Bilirubin AST ALT Alkaline Phosphatase Total Protein Albumin Urine Opiates Screen Not Detected Urine Fentanyl Screen POSITIVE H Ur Barbiturates Screen Not Detected Valproic Acid Ur Phencyclidine Scrn Not Detected Ur Amphetamines Screen Not Detected U Benzodiazepines Scrn Not Detected Urine Cocaine Screen Not Detected U Marijuana (THC) Screen Not Detected Ethyl Alcohol COVID-19 ([facility]) Negative COVID-19 [facility] Com See Note 10/26/21 10/26/21 16:42 16:42 WBC RBC Hgb Hct MCV MCH MCHC RDW Plt Count MPV Immature Gran % (Auto) Neut % (Auto) Lymph % (Auto) Clay % (Auto) Eos % (Auto) Baso % (Auto) Lymph # (Auto) Clay # (Auto) Eos # (Auto) Baso # (Auto) Abs Immat Gran (auto) Absolute Neuts (auto) Absolute Nucleated RBC Nucleated RBC % (auto) Sodium 139 Potassium 3.8 Chloride 102 Carbon Dioxide 27 Anion Gap 14 BUN 13 Creatinine 0.90 Estim Creat Clear Calc 124.3 Estimated GFR > 60 Random Glucose 112 Calcium 9.4 Total Bilirubin 0.2 AST 15 ALT 17 Alkaline Phosphatase 77 Total Protein 7.1 Albumin 4.2 Urine Opiates Screen Urine Fentanyl Screen Ur Barbiturates Screen Valproic Acid 52.5 Ur Phencyclidine Scrn Ur Amphetamines Screen U Benzodiazepines Scrn Urine Cocaine Screen U Marijuana (THC) Screen Ethyl Alcohol < 10 COVID-19 ([facility]) COVID-19 Clin Com Medications Medications Current Medications Acetaminophen (Acetaminophen 325 Mg Tablet) 325 mg PO Q6H PRN PRN Reason: pain-mild Al Hydroxide/Mg Hydroxide (Magnesium Hydrox/Alum Hydrox 30 Ml Oral.Susp) 30 ml PO Q6H PRN PRN Reason: Heartburn/Nausea Divalproex Sodium (Divalproex Sodium Er 500 Mg Tab.Er.24h) 1,500 mg PO BEDTIME [facility] Last Admin: 10/27/21 19:48 Dose: 1,500 mg Divalproex Sodium (Divalproex Sodium Er 250 Mg Tab.Er.24h) 250 mg PO BEDTIME [facility] Last Admin: 10/27/21 19:49 Dose: 250 mg Fluoxetine HCl (Fluoxetine Hcl 20 Mg Capsule) 80 mg PO DAILY [facility] Last Admin: 10/28/21 09:47 Dose: 80 mg Fluticasone Propionate (Fluticasone Propionate Nasal 16 Gm [place]) 1 spray NOSTRIL-B BID PRN PRN Reason: Nasal Congestion Hydroxyzine HCl (Hydroxyzine Hcl 25 Mg Tablet) 25 mg PO TID [facility] Last Admin: 10/28/21 09:48 Dose: 25 mg Hydroxyzine HCl (Hydroxyzine Hcl 25 Mg Tablet) 25 mg PO TID PRN PRN Reason: anxiety Magnesium Hydroxide (Milk Of Magnesia 30 Ml Oral.Susp) 30 ml PO DAILY PRN PRN Reason: Constipation Melatonin (Melatonin 3 Mg Tablet) 6 mg PO BEDTIME [facility] Last Admin: 10/27/21 19:48 Dose: 6 mg Memantine (Memantine Hcl 10 Mg Tablet) 10 mg PO BID [facility] Last Admin: 10/28/21 09:47 Dose: 10 mg Nicotine Polacrilex (Nicotine Polacrilex 2 Mg Gum) 4 mg BUCCAL Q2H PRN PRN Reason: Nicotine Cravings Risperidone (Risperidone 3 Mg Tablet) 3 mg PO DAILY [facility] Last Admin: 10/28/21 09:47 Dose: 3 mg Risperidone (Risperidone 2 Mg Tablet) 4 mg PO BEDTIME [facility] Last Admin: 10/27/21 19:48 Dose: 4 mg Trazodone HCl (Trazodone Hcl 50 Mg Tablet) 150 mg PO BEDTIME [facility] Last Admin: 10/27/21 19:49 Dose: 150 mg Vitamin E (Vitamin E (Dl,Tocopheryl Acet) 180 Mg (400 Unit) Capsule) 180 mg PO DAILY [facility] Last Admin: 10/28/21 09:47 Dose: 180 mg Allergies Allergies Allergy/AdvReac Type Severity Reaction Status Date / Time No Known Allergies Allergy Verified 09/04/21 13:46 Assessment & Plan Assessment & Plan (1) Intermittent explosive disorder in adult: Status: Acute Code(s): F63.81 - Intermittent explosive disorder (2) OCD (obsessive compulsive disorder): Status: Acute Code(s): F42.9 - Obsessive-compulsive disorder, unspecified Plan presents with established history of OCD, intermittent explosive disorder and cognitive impairment unspecified. On review of medications appears that Dep akote (1750mg bedtime), and Prozac (80mg) dose are higher since last discharge. Unclear timeframe regarding these. Patient does report this was recently and would like to keep medications the same to give them time to help him feel less anxious, depressed and frustrated. I spent minutes with the patient and/or on the patient floor today, greater than?50% of which was spent counseling/coordinating care. Reason for contiued inpatient stay Substantial Risk for: inability to function, rapid decompensation and med/psych decompensation
[2021-10-28] MEDS: Melatonin 3 MG TABLET 6 MG PO (18:35)
[2021-10-28] MEDS: Divalproex Sodium ER 500 MG TAB.ER.24H 1500 MG PO (18:35)
[2021-10-28] MEDS: Divalproex Sodium ER 250 MG TAB.ER.24H PO (18:35)
[2021-10-28] MEDS: risperiDONE 2 MG TABLET 4 MG PO (18:36)
[2021-10-28] MEDS: traZODone HCL 50 MG TABLET 150 MG PO (18:36)
[2021-10-29 08:15] VITALS: BP 123/61; PULSE 71; RESP 20; O2SAT 97
[2021-10-29] MEDS: risperiDONE 3 MG TABLET PO (09:09)
[2021-10-29] MEDS: Vitamin E (Dl,Tocopheryl Acet) 180 MG (400 UNIT) CAPSULE PO (09:09)
[2021-10-29] MEDS: hydrOXYzine HCL 25 MG TABLET PO ×3 (09:09→19:09)
[2021-10-29] MEDS: Memantine HCl 10 MG TABLET PO ×2 (09:09→19:09)
[2021-10-29] MEDS: FLUoxetine HCl 20 MG CAPSULE 80 MG PO (09:09)
--- NOTE | 2021-10-29 15:18 | HO.PSYCHPN ---
Subjective Subjective Date of Service: 10/29/21 Reason For Visit: anxiety Subjective Notes: Conditional Voluntary Interim History: Pt reports he noticed he was feeling more irritable, which he identifies this as feeling depressed. He denies SI/HI. He reports being verbally more aggressive towards staff by no physical assaults. He reports his OP psychiatrist, Dr. Nguyen recently increase his prozac and depakote. He wants to continue on current dose and plan for d/c soon. Medication Compliance: Yes Side effects from medications: No Review of Systems Acute medical concerns: No Review of Systems Review of Systems Unremarkable Yes all other systems are reviewed and are negative Constitutional: Reports as per HPI and Denies fever(s) Eyes: Reports as per HPI and Reports no additional eye complaints Reports system reviewed and no additional complaints, except as documented, Reports as per HPI, Denies nasal congestion, Denies nasal discharge and Denies sore throat Cardiovascular: Reports as per HPI, Denies chest pain and Denies dyspnea Respiratory: Reports as per HPI, Denies cough and Denies dyspnea Gastrointestinal: Reports as per HPI, Denies abdominal pain, Denies diarrhea and Denies vomiting Genitourinary: Reports as per HPI, Denies hematuria, Denies dysuria and Denies urinary frequency Musculoskeletal: Reports no additional musculoskeletal complaints and Denies numbness Skin/Breast: Reports as per HPI and Denies rash Reports as per HPI, Denies focal weakness and Denies numbness Psychiatric: Reports as per HPI, Reports anxiety, Denies homicidal ideation and Denies suicidal ideation Endocrine: Reports no additional endocrine complaints and Reports as per HPI Hematologic/Lymphatic: Reports no additional hematologic/lymphatic complaints, Reports as per HPI and Reports other (No peripheral edema) Mental Status Exam Mental Status Exam Narrative: A&O. Casually groomed, in NAD Behavior: overly friendly Psychomotor: no agitation or retardation noted Speech: mumbles at times, some difficulties finding words and expressing himself, spontaneous TP: wanting to get better with adjustments to medications, and hoping to return home soom TC: no overt s/s of psychosis or delusional content, feeling depressed Mood: depressed Affect: brighter than reported mood, non labile AH/VH: none Delusions: none Insight/judgment: poor x 2. Memory/cog: alert, oriented x 3. Diagnostics Vital Signs (24Hr): Vital Signs - 24 hr 10/29/21 08:15 Pulse Rate 71 Respiratory Rate 20 Blood Pressure 123/61 Pulse Oximetry 97 Oxygen Delivery Method Room Air BMI result Body Mass Index 33.3 Labs Results: 10/26/21 16:42 10/26/21 16:42 Medications Medications Current Medications Acetaminophen (Acetaminophen 325 Mg Tablet) 325 mg PO Q6H PRN PRN Reason: pain-mild Al Hydroxide/Mg Hydroxide (Magnesium Hydrox/Alum Hydrox 30 Ml Oral.Susp) 30 ml PO Q6H PRN PRN Reason: Heartburn/Nausea Divalproex Sodium (Divalproex Sodium Er 500 Mg Tab.Er.24h) 1,500 mg PO BEDTIME [facility] Last Admin: 10/28/21 18:35 Dose: 1,500 mg Divalproex Sodium (Divalproex Sodium Er 250 Mg Tab.Er.24h) 250 mg PO BEDTIME [facility] Last Admin: 10/28/21 18:35 Dose: 250 mg Fluoxetine HCl (Fluoxetine Hcl 20 Mg Capsule) 80 mg PO DAILY [facility] Last Admin: 10/29/21 09:09 Dose: 80 mg Fluticasone Propionate (Fluticasone Propionate Nasal 16 Gm [place]) 1 spray NOSTRIL-B BID PRN PRN Reason: Nasal Congestion Hydroxyzine HCl (Hydroxyzine Hcl 25 Mg Tablet) 25 mg PO TID [facility] Last Admin: 10/29/21 14:44 Dose: 25 mg Hydroxyzine HCl (Hydroxyzine Hcl 25 Mg Tablet) 25 mg PO TID PRN PRN Reason: anxiety Magnesium Hydroxide (Milk Of Magnesia 30 Ml Oral.Susp) 30 ml PO DAILY PRN PRN Reason: Constipation Melatonin (Melatonin 3 Mg Tablet) 6 mg PO BEDTIME [facility] Last Admin: 10/28/21 18:35 Dose: 6 mg Memantine (Memantine Hcl 10 Mg Tablet) 10 mg PO BID [facility] Last Admin: 10/29/21 09:09 Dose: 10 mg Nicotine Polacrilex (Nicotine Polacrilex 2 Mg Gum) 4 mg BUCCAL Q2H PRN PRN Reason: Nicotine Cravings Risperidone (Risperidone 3 Mg Tablet) 3 mg PO DAILY [facility] Last Admin: 10/29/21 09:09 Dose: 3 mg Risperidone (Risperidone 2 Mg Tablet) 4 mg PO BEDTIME [facility] Last Admin: 10/28/21 18:36 Dose: 4 mg Trazodone HCl (Trazodone Hcl 50 Mg Tablet) 150 mg PO BEDTIME [facility] Last Admin: 10/28/21 18:36 Dose: 150 mg Vitamin E (Vitamin E (Dl,Tocopheryl Acet) 180 Mg (400 Unit) Capsule) 180 mg PO DAILY [facility] Last Admin: 10/29/21 09:09 Dose: 180 mg Allergies Allergies Allergy/AdvReac Type Severity Reaction Status Date / Time No Known Allergies Allergy Verified 09/04/21 13:46 Assessment & Plan Assessment & Plan (1) Intermittent explosive disorder in adult: Status: Acute Code(s): F63.81 - Intermittent explosive disorder (2) OCD (obsessive compulsive disorder): Status: Acute Code(s): F42.9 - Obsessive-compulsive disorder, unspecified Plan presents with established history of OCD, intermittent explosive disorder and cognitive impairment unspecified. On review of medications appears that Depakote (1750mg bedtime), and Prozac (80mg) dose are higher since last discharge. PLAN 1. Continue current medications 2. coordination of care with senior care and aftercare planning. I spent minutes with the patient and/or on the patient floor today, greater than?50% of which was spent counseling/coordinating care. Reason for contiued inpatient stay Substantial Risk for: inability to function
[2021-10-29 18:42] VITALS: RESP 15
[2021-10-29] MEDS: risperiDONE 2 MG TABLET 4 MG PO (19:06)
[2021-10-29] MEDS: Melatonin 3 MG TABLET 6 MG PO (19:07)
[2021-10-29] MEDS: traZODone HCL 50 MG TABLET 150 MG PO (19:07)
[2021-10-29] MEDS: Divalproex Sodium ER 250 MG TAB.ER.24H PO (19:08)
[2021-10-29] MEDS: Divalproex Sodium ER 500 MG TAB.ER.24H 1500 MG PO (19:08)
--- NOTE | 2021-10-29 19:20 | PC.NURSE ---
Patient requested evening medications early- may do so per Tawanna Moe- given as requested.
[2021-10-30 09:00] VITALS: BP 143/78; PULSE 64; RESP 18; TEMP 36.1; O2SAT 97
[2021-10-30] MEDS: FLUoxetine HCl 20 MG CAPSULE 80 MG PO (09:05)
[2021-10-30] MEDS: Memantine HCl 10 MG TABLET PO ×2 (09:05→18:35)
[2021-10-30] MEDS: Vitamin E (Dl,Tocopheryl Acet) 180 MG (400 UNIT) CAPSULE PO (09:05)
[2021-10-30] MEDS: hydrOXYzine HCL 25 MG TABLET PO ×3 (09:05→18:35)
[2021-10-30] MEDS: risperiDONE 3 MG TABLET PO (09:05)
--- NOTE | 2021-10-30 14:08 | HO.PSYCHPN ---
Subjective Subjective Date of Service: 10/30/21 Reason For Visit: anxiety Subjective Notes: Conditional Voluntary Interim History: Ptreports he slept well. He denies SI/HI. He reports feeling less irritable. No explosive behaviors. He is taking medications as prescribed. No signs of psychosis. Per nursing, pt mostly in bed, ritualistic behaviors, difficulty communicating himself. Medication Compliance: Yes Side effects from medications: No Attending Groups: No Review of Systems Review of Systems Unremarkable Yes all other systems are reviewed and are negative Constitutional: Reports as per HPI and Denies fever(s) Eyes: Reports as per HPI and Reports no additional eye complaints Reports system reviewed and no additional complaints, except as documented, Reports as per HPI, Denies nasal congestion, Denies nasal discharge and Denies sore throat Cardiovascular: Reports as per HPI, Denies chest pain and Denies dyspnea Respiratory: Reports as per HPI, Denies cough and Denies dyspnea Gastrointestinal: Reports as per HPI, Denies abdominal pain, Denies diarrhea and Denies vomiting Genitourinary: Reports as per HPI, Denies hematuria, Denies dysuria and Denies urinary frequency Musculoskeletal: Reports no additional musculoskeletal complaints and Denies numbness Skin/Breast: Reports as per HPI and Denies rash Reports as per HPI, Denies focal weakness and Denies numbness Psychiatric: Reports as per HPI, Reports anxiety, Denies homicidal ideation and Denies suicidal ideation Endocrine: Reports no additional endocrine complaints and Reports as per HPI Hematologic/Lymphatic: Reports no additional hematologic/lymphatic complaints, Reports as per HPI and Reports other (No peripheral edema) Mental Status Exam Mental Status Exam Narrative: A&O. Casually groomed, in NAD Behavior: overly friendly Psychomotor: no agitation or retardation noted Speech: mumbles at times, some difficulties finding words and expressing himself, spontaneous TP: wanting to get better with adjustments to medications, and hoping to return home soom TC: no overt s/s of psychosis or delusional content, feeling depressed Mood: depressed Affect: brighter than reported mood, non labile AH/VH: none Delusions: none Insight/judgment: poor x 2. Memory/cog: alert, oriented x 3. Diagnostics Vital Signs (24Hr): Vital Signs - 24 hr 10/29/21 18:42 10/30/21 09:00 Temperature 97.0 F Pulse Rate 64 Respiratory Rate 15 18 Blood Pressure 143/78 H Pulse Oximetry 97 Oxygen Delivery Method Room Air BMI result Body Mass Index 33.3 Labs Results: 10/26/21 16:42 10/26/21 16:42 Medications Medications Current Medications Acetaminophen (Acetaminophen 325 Mg Tablet) 325 mg PO Q6H PRN PRN Reason: pain-mild Al Hydroxide/Mg Hydroxide (Magnesium Hydrox/Alum Hydrox 30 Ml Oral.Susp) 30 ml PO Q6H PRN PRN Reason: Heartburn/Nausea Divalproex Sodium (Divalproex Sodium Er 500 Mg Tab.Er.24h) 1,500 mg PO BEDTIME [facility] Last Admin: 10/29/21 19:08 Dose: 1,500 mg Divalproex Sodium (Divalproex Sodium Er 250 Mg Tab.Er.24h) 250 mg PO BEDTIME [facility] Last Admin: 10/29/21 19:08 Dose: 250 mg Fluoxetine HCl (Fluoxetine Hcl 20 Mg Capsule) 80 mg PO DAILY [facility] Last Admin: 10/30/21 09:05 Dose: 80 mg Fluticasone Propionate (Fluticasone Propionate Nasal 16 Gm [place]) 1 spray NOSTRIL-B BID PRN PRN Reason: Nasal Congestion Hydroxyzine HCl (Hydroxyzine Hcl 25 Mg Tablet) 25 mg PO TID [facility] Last Admin: 10/30/21 09:05 Dose: 25 mg Hydroxyzine HCl (Hydroxyzine Hcl 25 Mg Tablet) 25 mg PO TID PRN PRN Reason: anxiety Magnesium Hydroxide (Milk Of Magnesia 30 Ml Oral.Susp) 30 ml PO DAILY PRN PRN Reason: Constipation Melatonin (Melatonin 3 Mg Tablet) 6 mg PO BEDTIME [facility] Last Admin: 10/29/21 19:07 Dose: 6 mg Memantine (Memantine Hcl 10 Mg Tablet) 10 mg PO BID [facility] Last Admin: 10/30/21 09:05 Dose: 10 mg Nicotine Polacrilex (Nicotine Polacrilex 2 Mg Gum) 4 mg BUCCAL Q2H PRN PRN Reason: Nicotine Cravings Risperidone (Risperidone 3 Mg Tablet) 3 mg PO DAILY [facility] Last Admin: 10/30/21 09:05 Dose: 3 mg Risperidone (Risperidone 2 Mg Tablet) 4 mg PO BEDTIME [facility] Last Admin: 10/29/21 19:06 Dose: 4 mg Trazodone HCl (Trazodone Hcl 50 Mg Tablet) 150 mg PO BEDTIME [facility] Last Admin: 10/29/21 19:07 Dose: 150 mg Vitamin E (Vitamin E (Dl,Tocopheryl Acet) 180 Mg (400 Unit) Capsule) 180 mg PO DAILY [facility] Last Admin: 10/30/21 09:05 Dose: 180 mg Allergies Allergies Allergy/AdvReac Type Severity Reaction Status Date / Time No Known Allergies Allergy Verified 09/04/21 13:46 Assessment & Plan Assessment & Plan (1) Intermittent explosive disorder in adult: Status: Acute Code(s): F63.81 - Intermittent explosive disorder (2) OCD (obsessive compulsive disorder): Status: Acute Code(s): F42.9 - Obsessive-compulsive disorder, unspecified Plan presents with established history of OCD, intermittent explosive disorder and cognitive impairment unspecified. On review of medications appears that Depakote (1750mg bedtime), and Prozac (80mg) dose are higher since last discharge. PLAN 1. Continue current medications 2. coordination of care with alf and aftercare planning. 10/30 continue current medications, depakote level due tomorrow morning. pt stable otherwise, denies SI/HI. No signs of aggression towards self or others. I spent minutes with the patient and/or on the patient floor today, greater than?50% of which was spent counseling/coordinating care. Reason for contiued inpatient stay Substantial Risk for: harm to self and harm to others
[2021-10-30] MEDS: traZODone HCL 50 MG TABLET 150 MG PO (18:34)
[2021-10-30] MEDS: Divalproex Sodium ER 500 MG TAB.ER.24H 1500 MG PO (18:35)
[2021-10-30] MEDS: risperiDONE 2 MG TABLET 4 MG PO (18:35)
[2021-10-30] MEDS: Divalproex Sodium ER 250 MG TAB.ER.24H PO (18:35)
[2021-10-30] MEDS: Melatonin 3 MG TABLET 6 MG PO (18:35)
[2021-10-31] MEDS: Vitamin E (Dl,Tocopheryl Acet) 180 MG (400 UNIT) CAPSULE PO (09:39)
[2021-10-31] MEDS: FLUoxetine HCl 20 MG CAPSULE 80 MG PO (09:39)
[2021-10-31] MEDS: hydrOXYzine HCL 25 MG TABLET PO ×3 (09:39→20:19)
[2021-10-31] MEDS: risperiDONE 3 MG TABLET PO (09:39)
[2021-10-31] MEDS: Memantine HCl 10 MG TABLET PO ×2 (09:39→20:20)
[2021-10-31 09:41] LABS: Valproate 65.2 mcg/mL (50.0-100.0)
--- NOTE | 2021-10-31 15:05 | HO.PSYCHPN ---
Subjective Subjective Date of Service: 10/31/21 Reason For Visit: anxiety Subjective Notes: Conditional Voluntary Interim History: Per nursing, pt slept through the night. We had meeting with his providers from [facility] and staff from [facility] and his mother. Pt reports feeling less depressed. He reports feeling less anxious. He denies SI/HI. No signs of AH/VH. Pt reports wanting to go home soon. He can present as impulsive and talkative but able to be redirected. No aggression while on the unit. He is taking medications as prescribed. d/c for Friday. Medication Compliance: Yes Review of Systems Review of Systems Unremarkable Yes all other systems are reviewed and are negative Constitutional: Reports as per HPI and Denies fever(s) Eyes: Reports as per HPI and Reports no additional eye complaints Reports system reviewed and no additional complaints, except as documented, Reports as per HPI, Denies nasal congestion, Denies nasal discharge and Denies sore throat Cardiovascular: Reports as per HPI, Denies chest pain and Denies dyspnea Respiratory: Reports as per HPI, Denies cough and Denies dyspnea Gastrointestinal: Reports as per HPI, Denies abdominal pain, Denies diarrhea and Denies vomiting Genitourinary: Reports as per HPI, Denies hematuria, Denies dysuria and Denies urinary frequency Musculoskeletal: Reports no additional musculoskeletal complaints and Denies numbness Skin/Breast: Reports as per HPI and Denies rash Reports as per HPI, Denies focal weakness and Denies numbness Psychiatric: Reports as per HPI, Reports anxiety, Denies homicidal ideation and Denies suicidal ideation Endocrine: Reports no additional endocrine complaints and Reports as per HPI Hematologic/Lymphatic: Reports no additional hematologic/lymphatic complaints, Reports as per HPI and Reports other (No peripheral edema) Mental Status Exam Mental Status Exam Narrative: A&O. Casually groomed, in NAD Behavior: overly friendly Psychomotor: no agitation or retardation noted Speech: mumbles at times, some difficulties finding words and expressing himself, spontaneous TP: wanting to get better with adjustments to medications, and hoping to return home soom TC: no overt s/s of psychosis or delusional content, feeling depressed Mood: depressed Affect: brighter than reported mood, non labile AH/VH: none Delusions: none Insight/judgment: poor x 2. Memory/cog: alert, oriented x 3. Diagnostics Vital Signs (24Hr): BMI result Body Mass Index 33.3 Labs Results: 10/26/21 16:42 10/26/21 16:42 Labs: Laboratory Results - last 48 hr 10/31/21 08:37 Valproic Acid 65.2 Medications Medications Current Medications Acetaminophen (Acetaminophen 325 Mg Tablet) 325 mg PO Q6H PRN PRN Reason: pain-mild Al Hydroxide/Mg Hydroxide (Magnesium Hydrox/Alum Hydrox 30 Ml Oral.Susp) 30 ml PO Q6H PRN PRN Reason: Heartburn/Nausea Divalproex Sodium (Divalproex Sodium Er 500 Mg Tab.Er.24h) 1,500 mg PO BEDTIME [facility] Last Admin: 10/30/21 18:35 Dose: 1,500 mg Divalproex Sodium (Divalproex Sodium Er 250 Mg Tab.Er.24h) 250 mg PO BEDTIME [facility] Last Admin: 10/30/21 18:35 Dose: 250 mg Fluoxetine HCl (Fluoxetine Hcl 20 Mg Capsule) 80 mg PO DAILY [facility] Last Admin: 10/31/21 09:39 Dose: 80 mg Fluticasone Propionate (Fluticasone Propionate Nasal 16 Gm [place]) 1 spray NOSTRIL-B BID PRN PRN Reason: Nasal Congestion Hydroxyzine HCl (Hydroxyzine Hcl 25 Mg Tablet) 25 mg PO TID [facility] Last Admin: 10/31/21 14:41 Dose: 25 mg Hydroxyzine HCl (Hydroxyzine Hcl 25 Mg Tablet) 25 mg PO TID PRN PRN Reason: anxiety Magnesium Hydroxide (Milk Of Magnesia 30 Ml Oral.Susp) 30 ml PO DAILY PRN PRN Reason: Constipation Melatonin (Melatonin 3 Mg Tablet) 6 mg PO BEDTIME [facility] Last Admin: 10/30/21 18:35 Dose: 6 mg Memantine (Memantine Hcl 10 Mg Tablet) 10 mg PO BID [facility] Last Admin: 10/31/21 09:39 Dose: 10 mg Nicotine Polacrilex (Nicotine Polacrilex 2 Mg Gum) 4 mg BUCCAL Q2H PRN PRN Reason: Nicotine Cravings Risperidone (Risperidone 3 Mg Tablet) 3 mg PO DAILY [facility] Last Admin: 10/31/21 09:39 Dose: 3 mg Risperidone (Risperidone 2 Mg Tablet) 4 mg PO BEDTIME [facility] Last Admin: 10/30/21 18:35 Dose: 4 mg Trazodone HCl (Trazodone Hcl 50 Mg Tablet) 150 mg PO BEDTIME [facility] Last Admin: 10/30/21 18:34 Dose: 150 mg Vitamin E (Vitamin E (Dl,Tocopheryl Acet) 180 Mg (400 Unit) Capsule) 180 mg PO DAILY [facility] Last Admin: 10/31/21 09:39 Dose: 180 mg Allergies Allergies Allergy/AdvReac Type Severity Reaction Status Date / Time No Known Allergies Allergy Verified 09/04/21 13:46 Assessment & Plan Assessment & Plan (1) Intermittent explosive disorder in adult: Status: Acute Code(s): F63.81 - Intermittent explosive disorder (2) OCD (obsessive compulsive disorder): Status: Acute Code(s): F42.9 - Obsessive-compulsive disorder, unspecified Plan presents with established history of OCD, intermittent explosive disorder and cognitive impairment unspecified. On review of medications appears that Depakote (1750mg bedtime), and Prozac (80mg) dose are higher since last discharge. PLAN 1. Continue current medications 2. coordination of care with snf and aftercare planning. 10/30 continue current medications, depakote level due tomorrow morning. pt stable otherwise, denies SI/HI. No signs of aggression towards self or others. 10/31 pt stable no aggression ritualistic behaviors, difficulty retrieving words. taking medications, d/c 11/02. depakote level this morning >60. I spent minutes with the patient and/or on the patient floor today, greater than?50% of which was spent counseling/coordinating care. Reason for contiued inpatient stay Substantial Risk for: harm to self
[2021-10-31] MEDS: traZODone HCL 50 MG TABLET 150 MG PO (20:18)
[2021-10-31] MEDS: risperiDONE 2 MG TABLET 4 MG PO (20:18)
[2021-10-31] MEDS: Divalproex Sodium ER 500 MG TAB.ER.24H 1500 MG PO (20:19)
[2021-10-31] MEDS: Melatonin 3 MG TABLET 6 MG PO (20:19)
[2021-10-31] MEDS: Divalproex Sodium ER 250 MG TAB.ER.24H PO (20:20)
[2021-10-31 21:02] VITALS: BP 136/79; PULSE 75; TEMP 36.2; O2SAT 96
[2021-11-01 07:00] VITALS: BMI 33.3
[2021-11-01] MEDS: Vitamin E (Dl,Tocopheryl Acet) 180 MG (400 UNIT) CAPSULE PO (09:45)
[2021-11-01] MEDS: FLUoxetine HCl 20 MG CAPSULE 80 MG PO (09:45)
[2021-11-01] MEDS: Memantine HCl 10 MG TABLET PO ×2 (09:46→19:56)
[2021-11-01] MEDS: risperiDONE 3 MG TABLET PO (09:46)
[2021-11-01] MEDS: hydrOXYzine HCL 25 MG TABLET PO ×3 (09:47→19:57)
--- NOTE | 2021-11-01 12:27 | P.PNPSI_ITS ---
Subjective Subjective Date of Service: 11/01/21 Reason For Visit: anxiety Subjective Notes: Conditional Voluntary Interim History: Per nursing, pt slept through the night. Pt continues to report that he feels less depressed, less irritable. No SI/HI. No signs of aggression towards self or others. Estereo typical behaviors and expressive language difficulties continued to be noted. Medication Compliance: Yes Side effects from medications: No Review of Systems Review of Systems Unremarkable Yes all other systems are reviewed and are negative Constitutional: Reports as per HPI and Denies fever(s) Eyes: Reports as per HPI and Reports no additional eye complaints Reports system reviewed and no additional complaints, except as documented, Reports as per HPI, Denies nasal congestion, Denies nasal discharge and Denies sore throat Cardiovascular: Reports as per HPI, Denies chest pain and Denies dyspnea Respiratory: Reports as per HPI, Denies cough and Denies dyspnea Gastrointestinal: Reports as per HPI, Denies abdominal pain, Denies diarrhea and Denies vomiting Genitourinary: Reports as per HPI, Denies hematuria, Denies dysuria and Denies urinary frequency Musculoskeletal: Reports no additional musculoskeletal complaints and Denies numbness Skin/Breast: Reports as per HPI and Denies rash Reports as per HPI, Denies focal weakness and Denies numbness Psychiatric: Reports as per HPI, Reports anxiety, Denies homicidal ideation and Denies suicidal ideation Endocrine: Reports no additional endocrine complaints and Reports as per HPI Hematologic/Lymphatic: Reports no additional hematologic/lymphatic complaints, Reports as per HPI and Reports other (No peripheral edema) Mental Status Exam Mental Status Exam Narrative: A&O. Casually groomed, in NAD Behavior: overly friendly Psychomotor: no agitation or retardation noted Speech: mumbles at times, some difficulties finding words and expressing himself, spontaneous TP: wanting to get better with adjustments to medications, and hoping to return home soom TC: no overt s/s of psychosis or delusional content, feeling depressed Mood: depressed Affect: brighter than reported mood, non labile AH/VH: none Delusions: none Insight/judgment: poor x 2. Memory/cog: alert, oriented x 3. Diagnostics Vital Signs (24Hr): Vital Signs - 24 hr 10/31/21 21:02 Temperature 97.2 F Pulse Rate 75 Blood Pressure 136/79 Pulse Oximetry 96 Oxygen Delivery Method Room Air BMI result Body Mass Index 33.3 Labs Results: 10/26/21 16:42 10/26/21 16:42 Labs: Laboratory Results - last 48 hr 10/31/21 08:37 Valproic Acid 65.2 Medications Medications Current Medications Acetaminophen (Acetaminophen 325 Mg Tablet) 325 mg PO Q6H PRN PRN Reason: pain-mild Al Hydroxide/Mg Hydroxide (Magnesium Hydrox/Alum Hydrox 30 Ml Oral.Susp) 30 ml PO Q6H PRN PRN Reason: Heartburn/Nausea Divalproex Sodium (Divalproex Sodium Er 500 Mg Tab.Er.24h) 1,500 mg PO BEDTIME COUNTS INCLUDE 234 BEDS AT THE [facility] Last Admin: 10/31/21 20:19 Dose: 1,500 mg Divalproex Sodium (Divalproex Sodium Er 250 Mg Tab.Er.24h) 250 mg PO BEDTIME COUNTS INCLUDE 234 BEDS AT THE [facility] Last Admin: 10/31/21 20:20 Dose: 250 mg Fluoxetine HCl (Fluoxetine Hcl 20 Mg Capsule) 80 mg PO DAILY COUNTS INCLUDE 234 BEDS AT THE [facility] Last Admin: 11/01/21 09:45 Dose: 80 mg Fluticasone Propionate (Fluticasone Propionate Nasal 16 [address] [place]) 1 spray NOSTRIL-B BID PRN PRN Reason: Nasal Congestion Hydroxyzine HCl (Hydroxyzine Hcl 25 Mg Tablet) 25 mg PO TID COUNTS INCLUDE 234 BEDS AT THE [facility] Last Admin: 11/01/21 14:24 Dose: 25 mg Hydroxyzine HCl (Hydroxyzine Hcl 25 Mg Tablet) 25 mg PO TID PRN PRN Reason: anxiety Magnesium Hydroxide (Milk Of Magnesia 30 Ml Oral.Susp) 30 ml PO DAILY PRN PRN Reason: Constipation Melatonin (Melatonin 3 Mg Tablet) 6 mg PO BEDTIME COUNTS INCLUDE 234 BEDS AT THE [facility] Last Admin: 10/31/21 20:19 Dose: 6 mg Memantine (Memantine Hcl 10 Mg Tablet) 10 mg PO BID COUNTS INCLUDE 234 BEDS AT THE [facility] Last Admin: 11/01/21 09:46 Dose: 10 mg Nicotine Polacrilex (Nicotine Polacrilex 2 Mg Gum) 4 mg BUCCAL Q2H PRN PRN Reason: Nicotine Cravings Risperidone (Risperidone 3 Mg Tablet) 3 mg PO DAILY COUNTS INCLUDE 234 BEDS AT THE [facility] Last Admin: 11/01/21 09:46 Dose: 3 mg Risperidone (Risperidone 2 Mg Tablet) 4 mg PO BEDTIME COUNTS INCLUDE 234 BEDS AT THE [facility] Last Admin: 10/31/21 20:18 Dose: 4 mg Trazodone HCl (Trazodone Hcl 50 Mg Tablet) 150 mg PO BEDTIME COUNTS INCLUDE 234 BEDS AT THE [facility] Last Admin: 10/31/21 20:18 Dose: 150 mg Vitamin E (Vitamin E (Dl,Tocopheryl Acet) 180 Mg (400 Unit) Capsule) 180 mg PO DAILY JANET Last Admin: 11/01/21 09:45 Dose: 180 mg Allergies Allergies Allergy/AdvReac Type Severity Reaction Status Date / Time No Known Allergies Allergy Verified 09/04/21 13:46 Assessment & Plan Assessment & Plan (1) Intermittent explosive disorder in adult: Status: Acute Code(s): F63.81 - Intermittent explosive disorder (2) OCD (obsessive compulsive disorder): Status: Acute Code(s): F42.9 - Obsessive-compulsive disorder, unspecified Plan presents with established history of OCD, intermittent explosive disorder and cognitive impairment unspecified. On review of medications appears that Depakote (1750mg bedtime), and Prozac (80mg) dose are higher since last discharge. PLAN 1. Continue current medications 2. coordination of care with residential and aftercare planning. 10/30 continue current medications, depakote level due tomorrow morning. pt stable otherwise, denies SI/HI. No signs of aggression towards self or others. 10/31 pt stable no aggression ritualistic behaviors, difficulty retrieving words. taking medications, d/c 11/02. depakote level this morning >60. I spent minutes with the patient and/or on the patient floor today, greater than?50% of which was spent counseling/coordinating care. Reason for contiued inpatient stay Substantial Risk for: stable for discharge
[2021-11-01] MEDS: Divalproex Sodium ER 250 MG TAB.ER.24H PO (19:56)
[2021-11-01] MEDS: risperiDONE 2 MG TABLET 4 MG PO (19:56)
[2021-11-01] MEDS: traZODone HCL 50 MG TABLET 150 MG PO (19:57)
[2021-11-01] MEDS: Divalproex Sodium ER 500 MG TAB.ER.24H 1500 MG PO (19:57)
[2021-11-01] MEDS: Melatonin 3 MG TABLET 6 MG PO (19:57)
[2021-11-01 20:05] VITALS: TEMP 36.5
[2021-11-02] MEDS: FLUoxetine HCl 20 MG CAPSULE 80 MG PO (07:42)
[2021-11-02] MEDS: risperiDONE 3 MG TABLET PO (07:43)
[2021-11-02] MEDS: hydrOXYzine HCL 25 MG TABLET PO (07:43)
[2021-11-02] MEDS: Vitamin E (Dl,Tocopheryl Acet) 180 MG (400 UNIT) CAPSULE PO (07:43)
[2021-11-02] MEDS: Memantine HCl 10 MG TABLET PO (07:43)
--- NOTE | 2021-11-02 08:48 | PM.PSYDC ---
DS: Providers Provider Date of Service: 11/02/21 Date of admission: 10/26/21 23:40 Primary care physician: Herrera Hassan MD DS: Diagnosis Discharge Diagnosis (1) Intermittent explosive disorder in adult: Status: Acute (2) OCD (obsessive compulsive disorder): Status: Acute DS: Medications Discharge Medications Home Medications: Home Medications Medication Instructions Recorded Confirmed divalproex 250 mg tablet,extended 1 tab PO BEDTIME 10/26/21 10/26/21 release 24 hr fluoxetine 40 mg capsule 80 mg PO DAILY 10/26/21 10/26/21 fluticasone propionate 50 1 spray intranasal BID PRN Nasal 10/26/21 10/26/21 mcg/actuation nasal Congestion spray,suspension hydroxyzine HCl 25 mg tablet 1 tab PO TID 10/26/21 10/26/21 melatonin 3 mg tablet 6 mg PO BEDTIME 10/26/21 10/26/21 memantine 10 mg tablet 1 tab PO BID 10/26/21 10/26/21 risperidone 3 mg tablet 1 tab PO QAM 10/26/21 10/26/21 risperidone 4 mg tablet 1 tab PO BEDTIME 10/26/21 10/26/21 trazodone 150 mg tablet 1 tab PO BEDTIME 10/26/21 10/26/21 vitamin E (dl, acetate) 180 mg 400 unit PO DAILY 10/26/21 10/26/21 (400 unit) capsule Previous Rx's Medication Instructions Recorded divalproex 500 mg tablet,extended 1,500 mg PO BEDTIME #90 tabs 06/04/21 release 24 hr (Depakote ER) acetaminophen 325 mg tablet 325 mg PO Q6H PRN pain 30 days 10/17/21 (Tylenol) #120 tabs Mental Status Exam Mental Status Exam Narrative: A&O. Casually groomed, in NAD Behavior: overly friendly Psychomotor: no agitation or retardation noted Speech: mumbles at times, some difficulties finding words and expressing himself, spontaneous TP: wanting to get better with adjustments to medications, and hoping to return home soon TC: no overt s/s of psychosis or delusional content, feeling depressed Mood: good Affect: brighter, non labile AH/VH: none Delusions: none Insight/judgment: fair x 2. Memory/cog: alert, oriented x 3. Data Data Completed and Pending Completed studies during hospitalization [Text1]: 10/26/21 10/26/21 10/26/21 15:06 15:22 16:42 WBC 10.3 RBC 4.86 Hgb 14.6 Hct 43.2 MCV 88.9 MCH 30.0 MCHC 33.8 RDW 11.9 Plt Count 271 MPV 9.9 Immature Gran % (Auto) 0.6 H Neut % (Auto) 53.1 Lymph % (Auto) 33.2 [place] % (Auto) 9.6 Eos % (Auto) 2.8 Baso % (Auto) 0.7 Lymph # (Auto) 3.4 [place] # (Auto) 1.0 Eos # (Auto) 0.3 Baso # (Auto) 0.1 Abs Immat Gran (auto) 0.06 H Absolute Neuts (auto) 5.5 Absolute Nucleated RBC 0.000 Nucleated RBC % (auto) 0.0 Sodium Potassium Chloride Carbon Dioxide Anion Gap BUN Creatinine Estim Creat Clear Calc Estimated GFR Random Glucose Calcium Total Bilirubin AST ALT Alkaline Phosphatase Total Protein Albumin Urine Opiates Screen Not Detected Urine Fentanyl Screen POSITIVE H Ur Barbiturates Screen Not Detected Valproic Acid Ur Phencyclidine Scrn Not Detected Ur Amphetamines Screen Not Detected U Benzodiazepines Scrn Not Detected Urine Cocaine Screen Not Detected U Marijuana (THC) Screen Not Detected Ethyl Alcohol COVID-19 (NGOZI) Negative COVID-19 Clin Com See Note 10/26/21 10/26/21 10/31/21 16:42 16:42 08:37 WBC RBC Hgb Hct MCV MCH MCHC RDW Plt Count MPV Immature Gran % (Auto) Neut % (Auto) Lymph % (Auto) [place] % (Auto) Eos % (Auto) Baso % (Auto) Lymph # (Auto) [place] # (Auto) Eos # (Auto) Baso # (Auto) Abs Immat Gran (auto) Absolute Neuts (auto) Absolute Nucleated RBC Nucleated RBC % (auto) Sodium 139 Potassium 3.8 Chloride 102 Carbon Dioxide 27 Anion Gap 14 BUN 13 Creatinine 0.90 Estim Creat Clear Calc 124.3 Estimated GFR > 60 Random Glucose 112 Calcium 9.4 Total Bilirubin 0.2 AST 15 ALT 17 Alkaline Phosphatase 77 Total Protein 7.1 Albumin 4.2 Urine Opiates Screen Urine Fentanyl Screen Ur Barbiturates Screen Valproic Acid 52.5 65.2 Ur Phencyclidine Scrn Ur Amphetamines Screen U Benzodiazepines Scrn Urine Cocaine Screen U Marijuana (THC) Screen Ethyl Alcohol < 10 COVID-19 (NGOZI) COVID-19 Clin Com DS: Summary Hospital Course Hospital Course: HPI: Subjective Notes: Conditional Voluntary Medical Problems Affecting Mental Status: No Narrative: 41-year-old male, history of intermittent explosive disorder, cognitive impairment, OCD and intermediate resident self presented in the context of feeling more anxious and depressed wanting to get things under better control before he became agitated or aggressive.? Recently at [facility] in May 2021. at that time medications included Depakote 1500 mg, Risperdal 3 mg morning and 4 mg at bedtime, Prozac 40 mg, Namenda 10 mg twice daily.? Also reference to trazodone 150 mg. today presents as pleasant.? [place] and battles in that country.? He did tend to perseverate on certain topics in a pleasant manner.? Reported he needed a break because he was pounding his hands a lot and wanted to stop thing from escalating where he would punch and break things.? Reports that he was feeling more anxious.? Unable to articulate if there been any recent changes or stressors.? Reports that 1 of his medications was recently adjusted and he wanted to be in the hospital so it would have time to have benefit.? Feels safe in the hospital.? Reports sleep is okay.? No overt paranoia noted.? No SI.? No HI.? No agitation.? Feels comfortable with current roommate.? Feels comfortable with others on the unit.? Did state that he would? like to work with previous nurse practitioner Di Chacon Past Psychiatric History: Inpatient: last admisison [facility] [place] 2021.? OP: [facility] Dr. Jack Nguyen Suicide attempts: none Past trials: depakote, risperidone, namenda Medical Evaluation Reviewed: Yes HOSPITAL COURSE On the unit, Mr. Fowler was admitted on a CV and placed on 15 minutes checks for safety. He reported he identified symptoms of depression which in his case presents more with irritability and anxiety. He denied suicidal or homicidal ideation. No incidents of aggression towards self or others prior to this admission. Prior to admission, his outpatient psychiatrist, Dr. Nguyen had increased depakote from 1200mg po qhs to 1750mg po qhs. His prozac was also increased from 60mg to 80mg. 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 Pt was continued on depakote, prozac, risperidone (mostly for explosive behaviors as no hx of psychosis), namenda (which he has been on as off label for aggression and patient has reported this medication has been helpful). There were no incidences of aggression towards self or others. He denied suicidal or homicidal ideation throughout this admission. We had meeting with his OP providers and staff from [facility]. No concerns voiced at time of discharge. Status at Discharge Cognitive/behavioral status at discharge: Pt with bright, non labile, at times overly friendly and poor boundaries but easily re-directable. No SI/HI. No VH/AH. Language expressive disorder noted which affects his ability to communicate verbally. No signs of aggression towards self or others. Functional status at discharge: independent ambulation Overall status at discharge: patient is progressing back to baseline Time Spent with Patient Time attestation: Total time spent providing and/or coordinating discharge services: Discharge Plan Discharge Patient Disposition: Home Health Service Discharge Diagnosis: Intermittent Explosive Disorder OCD Expressive Language Disorder Referrals: Jack Dahs MD [Physician] - 11/20/21 9:00 am (In person appointment) Herrera Hassan MD [Primary Care Provider] - 1 Week (Provider would call pt for follow up appt.) Discharge Medications: Continued divalproex [Depakote ER] 500 mg tablet extended release 24 hr 1,500 mg PO BEDTIME Qty: 90 1RF risperidone 4 mg tablet 1 tab PO BEDTIME risperidone 3 mg tablet 1 tab PO QAM trazodone 150 mg tablet 1 tab PO BEDTIME vitamin E (dl, acetate) 180 mg (400 unit) capsule 400 unit PO DAILY melatonin 3 mg tablet 6 mg PO BEDTIME hydroxyzine HCl 25 mg tablet 1 tab PO TID memantine 10 mg tablet 1 tab PO BID fluoxetine 40 mg capsule 80 mg PO DAILY fluticasone propionate 50 mcg/actuation spray,suspension 1 spray intranasal BID PRN (Reason: Nasal Congestion) divalproex 250 mg tablet extended release 24 hr 1 tab PO BEDTIME Discontinued acetaminophen [Tylenol] 325 mg tablet 325 mg PO Q6H PRN (Reason: pain) 30 Days Qty: 120 3RF No Action [place] Blue 1 % shampoo 1 appl topical DAILY 10 Days Qty: 325 0RF Rx Instructions: massage into affected area; leave on for 10 mins ; rinse off thoroughly Discharge Orders: Discharge Order (Routine); Ordered 11/02/21 Ordered By: Di Chacon Diet: Regular diet Activity on Discharge: As tolerated Stand Alone Forms: Patient Portal Discharge page Care Plan Goals: 1. Maintain mood 2. No SI/HI 3. no signs of aggression towards self or others Health Concerns: Follow up with PCP for regular care Plan of Treatment: 1. Take medications as prescribed. 2. Go to nearest ED or call 911 in event of emergency Assessment: Pt with bright, not labile, although at times poor boundaries with others. No SI/HI. No signs of psychosis or delusions. No signs of aggression towards self or others. Discharge Date/Time: 11/02/21 11:55
== END 2021-11-02 11:55 | disposition home health service (06) | DRG 883 ==
LOC: HO.ED 21:47 → HO.PADLT16 23:47
PROVIDERS: Admitting Provider Psychiatry & Neurology Psychiatry; Emergency Provider Emergency Medicine; PCP Internal Medicine; Visit Provider Social Worker
DX: F63.81 Intermittent explosive disorder (principal); F42.9 Obsessive-compulsive disorder, unspecified; F41.9 Anxiety disorder, unspecified; F32.A Depression, unspecified; Z20.822 Contact with and (suspected) exposure to COVID-19; Z87.891 Personal history of nicotine dependence; Z79.51 Long term (current) use of inhaled steroids; Z79.899 Other long term (current) drug therapy
CPT/HCPCS: 36415; 80053; 80164; 80307; 82077; 85025; 87635; 99285

== ENCOUNTER 2022-02-03 12:30 | Inpatient (IN) | payer OTHER, SELFPAY ==
[2022-02-03 13:22] VITALS: BP 134/86; PULSE 88; RESP 16; TEMP 36.9; O2SAT 94; BMI 34.0
--- NOTE | 2022-02-03 13:23 | ED.PSYCH ---
HPI - Psych General Chief Complaint: Psychiatric Symptoms Stated Complaint: Crisis sent by [facility] Time Seen by Provider: 02/03/22 13:23 Source: patient and EMS Mode of arrival: EMS History of Present Illness HPI Narrative: 42-year-old male with a past medical history of anal fistula, anxiety, depression, OCD, presenting to ED as N inpatient bed search from the community due to delusions and increased anxiety. Patient reports he does not believe his Depakote/medications are being absorbed into his colon because he believes he has Crohn's disease or ?IBS. States his medications are not working. Denies SI/HI. Reports occasional ETOH use. Denies other illicit substances, CP/SOB, abdominal pain, nausea/vomiting, auditory/visual hallucinations MD complaint: anxiety Onset (ago): unknown Related Data Home Medications Medication Instructions Recorded Confirmed divalproex 250 mg tablet,extended 1 tab PO BEDTIME 10/26/21 01/15/22 release 24 hr fluticasone propionate 50 1 spray intranasal BID PRN Nasal 10/26/21 01/15/22 mcg/actuation nasal Congestion spray,suspension hydroxyzine HCl 25 mg tablet 1 tab PO TID 10/26/21 01/15/22 melatonin 3 mg tablet 6 mg PO BEDTIME 10/26/21 01/15/22 memantine 10 mg tablet 1 tab PO BID 10/26/21 01/15/22 risperidone 4 mg tablet 1 tab PO BEDTIME 10/26/21 01/15/22 trazodone 150 mg tablet 1 tab PO BEDTIME 10/26/21 01/15/22 vitamin E (dl, acetate) 180 mg 400 unit PO DAILY 10/26/21 01/15/22 (400 unit) capsule fluoxetine 20 mg capsule 60 mg PO QAM 12/04/21 01/15/22 fluoxetine 40 mg capsule 80 mg PO DAILY 02/01/22 Previous Rx's Medication Instructions Recorded divalproex 500 mg tablet,extended 1,500 mg PO BEDTIME #90 tabs 06/04/21 release 24 hr (Depakote ER) selenium sulfide 1 % shampoo 1 appl topical DAILY 10 days #325 11/06/21 (Selsun Blue) mL neomycin-bacitracn Zn-polymyx 3.5 1 appl topical BID 7 days #14.2 02/01/22 mg-400 unit-5,000 unit/gram top grams oint (Neosporin ([id number])) Allergies Allergy/AdvReac Type Severity Reaction Status Date / Time No Known Allergies Allergy Verified 02/01/22 11:26 Review of Systems Review of Systems: Constitutional: No Fever, No Chills, No Fatigue, No Malaise ENT/Mouth: No Hearing loss, No Ear Pain, No sore throat, No Rhinorrhea, No Swallowing Difficulty Eyes: No Eye Pain, No Swelling, No Redness Cardiovascular: No Chest Pain, No SOB, No Edema, No Palpitations Respiratory: No Cough, No Sputum, No Dyspnea Gastrointestinal: No Nausea, No Vomiting, No Diarrhea, No Constipation, No Abdominal pain Genitourinary: No Dysuria, No Urinary Frequency, No Hematuria, No Flank Pain Musculoskeletal: No joint pain, No Myalgias, No Joint Swelling Skin: No Skin Lesions, No rash Neuro: No Weakness, No Numbness, No Headache Psych: + Anxiety/Panic, No Depression, No SI/HI/AH/VH, No Social Issues Yes all other systems are reviewed and are negative Constitutional: Constitutional: Reports as per [facility] Past Medical History Attestation statement: The following information was validated with the patient. Medical History Anal fistula Anxiety and depression Obsessive compulsive disorder Screening for diabetes mellitus Screening for hyperlipidemia Surgical History No pertinent past surgical history Family History Family History Mother No problems noted. Father No problems noted. Other Substance use disorder Social History Social History Household Members: Other Household Members Other:: Correction Housing: Other Housing Other:: fpc Do you presently have visiting nurse or other home services: Yes (Lives in a fpc.) Alcohol intake: never Patient Tobacco Use Status: Former Tobacco user Quit Date: January 2021 Tobacco use type: Cigarette Cigarettes Per Day: 15 Years Smoked: 17 years old e-Cigarette/Vaping Use: Never Used Second Hand Smoke Exposure: No Advance Directives: No Advance Directives Information Provided: Yes service: No Current occupational status: disabled Sexual orientation: Pt stated he identifies as LGBTQA Cognitive needs: No Hearing needs: No Vision needs: No Physical Exam Vital Signs: Vital Signs: Last Vital Signs Temp 98.4 F 02/03/22 13:22 Pulse 88 02/03/22 13:22 Resp 16 02/03/22 13:22 BP 134/86 02/03/22 13:22 Pulse Ox 94 02/03/22 13:22 O2 Del Method 02/03/22 13:22 BMI result Body Mass Index 34.0 Const: General: cooperative and anxious Orientation/consciousness: patient oriented x3 Limitations: no limitations HEENT: Head: Yes normal to inspection and Yes atraumatic Ears: hearing grossly normal bilaterally General nose exam: Normal external nose present Face and sinus: Yes normal facial exam Eyes: General: appearance normal, both eyes and all related structures EOM: EOMs intact bilaterally Neck: Neck: Yes normal visual inspection and Yes no meningeal signs Resp: Effort & Inspection: normal respiratory effort and no respiratory distress Auscultation: clear to auscultation bilaterally, no rales, no rhonchi and no wheezes Cardio: Rate: regular rate Heart sounds: S1 normal heart sound present and S2 normal heart sound present GI: Inspection: Yes normal to inspection Palpation (GI): Soft to palpation, nontender, no guarding and not rigid Skin: Rashes: no rashes Wounds: no wounds Neuro: General: patient oriented x3, tone normal and no meningeal signs Gait exam (Neuro): Normal gait present Extrem: General: Yes normal to inspection Psych: Speech and movement: Restless speech present Affect: Anxious affect present Attitude: cooperative Thought content: suicidality and no homicidality Course Course Course Narrative: -labs unremarkable. Tox screen negative. Valproic acid level low at 40 -physician observation initiated at 17:23. -1800--ED care transfer to [facility] pending bed search MDM - Psych MDM Narrative Medical decision making narrative: 42-year-old male with a past medical history of anal fistula, anxiety, depression, OCD, presenting to ED as N inpatient bed search from the community due to delusions and increased anxiety. On exam vital signs stable, NAD, appears anxious and restless, actively fighting OCD impulses during evaluation. Concern for organic causes versus psychiatric illness Plan: Labs, UA, drug screen, bed search Differential Diagnosis Differential diagnosis: Likely acute psychosis, acute anxiety and substance abuse Medical Records Attestation: I reviewed the patient's medical records. Lab Data Attestation: I reviewed the patient's lab results. Result diagrams: 02/03/22 15:33 02/03/22 15:33 Labs: Lab Results 02/03/22 02/03/22 02/03/22 Range/Units 15:33 15:33 15:33 WBC 10.5 (4.8-10.8) X10*3/uL RBC 4.90 (4.60-5.80) X10*6/uL Hgb 15.1 (14.0-18.0) g/dl Hct 43.2 (42.0-52.0) % MCV 88.2 (80.0-98.0) fL MCH 30.8 (27.0-33.0) pg MCHC 35.0 (31.0-36.0) g/dl RDW 12.1 (11.0-16.0) % Plt Count 295 (160-400) X10*3/uL MPV 9.6 (9.4-12.4) fL Immature Gran % (Auto) 0.6 H (0.0-0.4) % Neut % (Auto) 59.1 (45-73) % Lymph % (Auto) 28.8 (20-40) % [place] % (Auto) 9.3 (2-11) % Eos % (Auto) 1.4 (0-4) % Baso % (Auto) 0.8 (0-2) % Lymph # (Auto) 3.0 (1.2-4.9) X10*3/uL [place] # (Auto) 1.0 (0.1-1.2) X10*3/uL Eos # (Auto) 0.2 (0.0-0.4) X10*3/uL Baso # (Auto) 0.1 (0.0-0.2) X10*3/uL Abs Immat Gran (auto) 0.06 H (0.00-0.03) X10*3/uL Absolute Neuts (auto) 6.2 (2.0-8.3) x10*3/uL Absolute Nucleated RBC 0.000 (0.0-0.012) X10*3/uL Nucleated RBC % (auto) 0.0 (0.0-0.2) /100WBC Sodium 142 (135-145) mmol/L Potassium 4.2 (3.3-5.1) mmol/L Chloride 103 (96-108) mmol/L Carbon Dioxide 28 (22-29) mmol/L Anion Gap 15 (12-20) BUN 12 (9-16) mg/dL Creatinine 0.93 (0.5-1.4) mg/dL Estim Creat Clear Calc 141.0 Estimated GFR > 60 Random Glucose 77 (60-115) mg/dL Calcium 10.1 D (8.4-10.2) mg/dL Total Bilirubin 0.3 (0.0-1.0) mg/dL Direct Bilirubin < 0.2 (0.0-0.5) mg/dL AST 22 D (5-37) U/L ALT 37 (0-40) U/L Alkaline Phosphatase 69 (39-117) U/L Total Protein 7.4 (6.5-8.0) g/dL Albumin 4.5 (3.5-5.0) g/dL Lipase 30 (8-78) U/L Salicylates < 5.0 L (15-30) mg/dL Urine Fentanyl Screen (Not Detect) Acetaminophen < 1 (<30) mcg/mL Ur Barbiturates Screen (Not Detect) Valproic Acid 40.0 L (50.0-100.0) mcg/mL Ur Phencyclidine Scrn (Not Detect) Ur Amphetamines Screen (Not Detect) U Benzodiazepines Scrn (Not Detect) Urine Cocaine Screen (Not Detect) U Marijuana (THC) Screen (Not Detect) COVID-19 (NGOZI) (Negative) COVID-19 Clin Com 02/03/22 02/03/22 Range/Units 15:33 16:43 WBC (4.8-10.8) X10*3/uL RBC (4.60-5.80) X10*6/uL Hgb (14.0-18.0) g/dl Hct (42.0-52.0) % MCV (80.0-98.0) fL MCH (27.0-33.0) pg MCHC (31.0-36.0) g/dl RDW (11.0-16.0) % Plt Count (160-400) X10*3/uL MPV (9.4-12.4) fL Immature Gran % (Auto) (0.0-0.4) % Neut % (Auto) (45-73) % Lymph % (Auto) (20-40) % [place] % (Auto) (2-11) % Eos % (Auto) (0-4) % Baso % (Auto) (0-2) % Lymph # (Auto) (1.2-4.9) X10*3/uL [place] # (Auto) (0.1-1.2) X10*3/uL Eos # (Auto) (0.0-0.4) X10*3/uL Baso # (Auto) (0.0-0.2) X10*3/uL Abs Immat Gran (auto) (0.00-0.03) X10*3/uL Absolute Neuts (auto) (2.0-8.3) x10*3/uL Absolute Nucleated RBC (0.0-0.012) X10*3/uL Nucleated RBC % (auto) (0.0-0.2) /100WBC Sodium (135-145) mmol/L Potassium (3.3-5.1) mmol/L Chloride (96-108) mmol/L Carbon Dioxide (22-29) mmol/L Anion Gap (12-20) BUN (9-16) mg/dL Creatinine (0.5-1.4) mg/dL Estim Creat Clear Calc Estimated GFR Random Glucose (60-115) mg/dL Calcium (8.4-10.2) mg/dL Total Bilirubin (0.0-1.0) mg/dL Direct Bilirubin (0.0-0.5) mg/dL AST (5-37) U/L ALT (0-40) U/L Alkaline Phosphatase (39-117) U/L Total Protein (6.5-8.0) g/dL Albumin (3.5-5.0) g/dL Lipase (8-78) U/L Salicylates (15-30) mg/dL Urine Fentanyl Screen Not Detected (Not Detect) Acetaminophen (<30) mcg/mL Ur Barbiturates Screen Not Detected (Not Detect) Valproic Acid (50.0-100.0) mcg/mL Ur Phencyclidine Scrn Not Detected (Not Detect) Ur Amphetamines Screen Not Detected (Not Detect) U Benzodiazepines Scrn Not Detected (Not Detect) Urine Cocaine Screen Not Detected (Not Detect) U Marijuana (THC) Screen Not Detected (Not Detect) COVID-19 (NGOZI) Negative (Negative) COVID-19 Clin Com See Note Discharge Plan Discharge Clinical Impression: Delusions, OCD (obsessive compulsive disorder) Patient Disposition: Still a Patient Prescriptions: No Action Selsun Blue 1 % shampoo 1 appl topical DAILY 10 Days Qty: 325 0RF Rx Instructions: massage into affected area; leave on for 10 mins ; rinse off thoroughly divalproex [Depakote ER] 500 mg tablet extended release 24 hr 1,500 mg PO BEDTIME Qty: 90 1RF risperidone 4 mg tablet 1 tab PO BEDTIME trazodone 150 mg tablet 1 tab PO BEDTIME vitamin E (dl, acetate) 180 mg (400 unit) capsule 400 unit PO DAILY melatonin 3 mg tablet 6 mg PO BEDTIME hydroxyzine HCl 25 mg tablet 1 tab PO TID memantine 10 mg tablet 1 tab PO BID fluticasone propionate 50 mcg/actuation spray,suspension 1 spray intranasal BID PRN (Reason: Nasal Congestion) divalproex 250 mg tablet extended release 24 hr 1 tab PO BEDTIME fluoxetine 40 mg capsule 80 mg PO DAILY fluoxetine 20 mg capsule 60 mg PO QAM Neosporin (siv-bsi-ipthm) 3.5mg-400 unit- 5,000 unit/gram ointment 1 appl topical BID 7 Days Qty: 14.2 0RF
[2022-02-03 15:40] LABS: MANUAL DIFF FLAG NO
[2022-02-03 15:46] LABS: Basophils Absolute Auto 0.1 X10*3/uL (0.0-0.2); Basophils Percent Auto 0.8 % (0-2); Eosinophils Absolute Auto 0.2 X10*3/uL (0.0-0.4); Eosinophils Percent Auto 1.4 % (0-4); Hematocrit 43.2 % (42.0-52.0); Hemoglobin 15.1 g/dl (14.0-18.0); Imm Gran Abs Auto 0.06 X10*3/uL (0.00-0.03); Imm Gran Pct Auto 0.6 % (0.0-0.4); Lymphocytes Percent Auto 28.8 % (20-40); Mean Corpuscular Hemoglobin 30.8 pg (27.0-33.0); Mean Corpuscular Volume 88.2 fL (80.0-98.0); Mean Platelet Volume 9.6 fL (9.4-12.4); Monocytes Percent Auto 9.3 % (2-11); Neutrophils Absolute Auto 6.2 x10*3/uL (2.0-8.3); Neutrophils Percent Auto 59.1 % (45-73); Platelet Count 295 X10*3/uL (160-400); Red Cell Distribution Width 12.1 % (11.0-16.0); White Blood Count 10.5 X10*3/uL (4.8-10.8)
[2022-02-03 15:58] LABS: Acetaminophen LAB < 1 mcg/mL (<30); Alanine Aminotransferase 37 U/L (0-40); Albumin Level 4.5 g/dL (3.5-5.0); Alkaline Phosphatase 69 U/L (39-117); Anion Gap 15 (12-20); Aspartate Amino Transferase 22 U/L (5-37); Bilirubin Direct < 0.2 mg/dL (0.0-0.5); Bilirubin Total 0.3 mg/dL (0.0-1.0); Blood Urea Nitrogen 12 mg/dL (9-16); Calcium 10.1 mg/dL (8.4-10.2); Carbon Dioxide 28 mmol/L (22-29); Chloride 103 mmol/L (96-108); Estimated Glomerular Filt Rate > 60; Glucose Random 77 mg/dL (60-115); Lipase 30 U/L (8-78); Potassium 4.2 mmol/L (3.3-5.1); Salicylate < 5.0 mg/dL (15-30); Sodium 142 mmol/L (135-145); Total Protein 7.4 g/dL (6.5-8.0)
[2022-02-03 16:01] LABS: COVID-19 Test Negative (Negative); IDNOW Serial# 9DB6401D
[2022-02-03 17:11] LABS: Amphetamine Screen Urine Not Detected (Not Detect); Barbiturates, Urine Not Detected (Not Detect); Benzodiazepines Screen Urine Not Detected (Not Detect); Cannabinoid Screen Urine Not Detected (Not Detect); Cocaine Screen Urine Not Detected (Not Detect); Fentanyl, urine Not Detected (Not Detect); Phencyclidine Screen Urine Not Detected (Not Detect)
[2022-02-03 17:25] LABS: Opiate Screen Urine Not Detected (Not Detect)
--- NOTE | 2022-02-03 18:34 | PC.NURSE ---
patient in talking to t/w expresses that he thinks changing the form of the depakote (say to liquid) might enhance absorption. i told client i did think the form mattered too much but he could discuss with provider
--- NOTE | 2022-02-03 18:46 | PHA.MEDREC ---
Pharmacy Consult ? Medication Reconciliation Pharmacy has completed the medication reconciliation. Got list from yessy at [facility]. patient takes two different doses of risperdal and depakote and takes both prozac caps in AM. Thank Goyo
[2022-02-03] MEDS: Memantine HCl 10 MG TABLET PO (21:19)
[2022-02-03] MEDS: risperiDONE 2 MG TABLET 4 MG PO (21:19)
[2022-02-03] MEDS: traZODone HCL 50 MG TABLET 150 MG PO (21:19)
[2022-02-03] MEDS: Divalproex Sodium ER 250 MG TAB.ER.24H PO (21:19)
[2022-02-03] MEDS: Melatonin 3 MG TABLET 6 MG PO (21:19)
[2022-02-03] MEDS: Divalproex Sodium ER 500 MG TAB.ER.24H 1500 MG PO (21:19)
[2022-02-04 05:55] VITALS: RESP 16
--- NOTE | 2022-02-04 06:22 | PC.NURSE ---
Patient slept through the night, no distress observed/reported, patient compliant with medication, VSS, behavior appropriate and non concerning, patient was briefly screened by Lesly in the community however no disposition was made, patient will be reassessed by n in the morning, will continue to monitor.
--- NOTE | 2022-02-04 08:12 | PC.NURSE ---
Patient refusing vital signs from this RN. States his OCD is too much with the blood pressure cuff
[2022-02-04] MEDS: Memantine HCl 10 MG TABLET PO ×2 (08:17→19:59)
[2022-02-04] MEDS: risperiDONE 3 MG TABLET PO (08:17)
[2022-02-04] MEDS: FLUoxetine HCl 20 MG CAPSULE 80 MG PO (08:18)
[2022-02-04 08:49] VITALS: RESP 16
[2022-02-04] MEDS: Vitamin E (Dl,Tocopheryl Acet) 180 MG (400 UNIT) CAPSULE PO (09:29)
[2022-02-04 16:00] VITALS: BP 136/86; PULSE 96; RESP 16; TEMP 36.6; O2SAT 96
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
[2022-02-04] MEDS: traZODone HCL 50 MG TABLET 150 MG PO (19:58)
[2022-02-04] MEDS: Melatonin 3 MG TABLET 6 MG PO (19:59)
[2022-02-04] MEDS: risperiDONE 2 MG TABLET 4 MG PO (19:59)
[2022-02-04] MEDS: Divalproex Sodium ER 250 MG TAB.ER.24H PO (22:42)
[2022-02-04] MEDS: Divalproex Sodium ER 500 MG TAB.ER.24H 1500 MG PO (22:42)
[2022-02-05] MEDS: Vitamin E (Dl,Tocopheryl Acet) 180 MG (400 UNIT) CAPSULE PO (08:40)
[2022-02-05] MEDS: risperiDONE 3 MG TABLET PO (08:40)
[2022-02-05] MEDS: FLUoxetine HCl 20 MG CAPSULE 80 MG PO (08:40)
[2022-02-05] MEDS: Memantine HCl 10 MG TABLET PO ×2 (08:41→20:07)
[2022-02-05 09:09] LABS: Estimated Average Glucose 103 mg/dL; Hemoglobin A1c % 5.2 %
[2022-02-05 09:30] LABS: Alanine Aminotransferase 28 U/L (0-40); Albumin Level 4.6 g/dL (3.5-5.0); Alkaline Phosphatase 72 U/L (39-117); Anion Gap 15 (12-20); Aspartate Amino Transferase 18 U/L (5-37); Bilirubin Direct 0.2 mg/dL (0.0-0.5); Bilirubin Total 0.4 mg/dL (0.0-1.0); Blood Urea Nitrogen 19 mg/dL (9-16); Calcium 10.1 mg/dL (8.4-10.2); Carbon Dioxide 29 mmol/L (22-29); Chloride 103 mmol/L (96-108); Cholesterol 241 mg/dL; Creatinine Clr Calc Pharmacy 131.2; Estimated Glomerular Filt Rate > 60; Glucose Fasting 98 mg/dL (60-99); HDL Cholesterol 36 mg/dL; LDL Cholesterol Calculated 168 mg/dl; Potassium 4.7 mmol/L (3.3-5.1); Sodium 142 mmol/L (135-145); Total Protein 7.6 g/dL (6.5-8.0); Triglycerides 185 mg/dL
[2022-02-05 09:51] LABS: Free T4 (Free Thyroxine) 1.05 ng/dL (0.71-1.85); Thyroid Stimulating Hormone 1.07 uIU/mL (0.32-4.0)
[2022-02-05 10:00] LABS: Folate 15.6 ng/mL (> or = 4.0); Vitamin B12 494 pg/mL (200-900)
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
[2022-02-05 18:00] VITALS: RESP 16
[2022-02-05] MEDS: risperiDONE 2 MG TABLET 4 MG PO (20:07)
[2022-02-05] MEDS: Divalproex Sodium ER 500 MG TAB.ER.24H 1500 MG PO (20:07)
[2022-02-05] MEDS: traZODone HCL 50 MG TABLET 150 MG PO (20:07)
[2022-02-05] MEDS: Melatonin 3 MG TABLET 6 MG PO (20:07)
[2022-02-05] MEDS: Divalproex Sodium ER 250 MG TAB.ER.24H PO (20:07)
[2022-02-06] MEDS: risperiDONE 3 MG TABLET PO (09:22)
[2022-02-06] MEDS: Memantine HCl 10 MG TABLET PO ×2 (09:22→20:22)
[2022-02-06] MEDS: Vitamin E (Dl,Tocopheryl Acet) 180 MG (400 UNIT) CAPSULE PO (09:22)
[2022-02-06] MEDS: FLUoxetine HCl 20 MG CAPSULE 80 MG PO (09:22)
--- NOTE | 2022-02-06 15:24 | HO.PSYCHPN ---
Subjective Subjective Date of Service: 02/06/22 Reason For Visit: Psychosis Interim History: appears to be at baseline. calm and cooperative. word-finding difficulties. c/o feeling tired, having a hard time waking up without his usual strong coffee. liquid VPA has not yet arrived. per staff, denies AVH. eating and sleeping well. somatically preoccupied. Mental Status Exam Mental Status Exam Narrative: A&O. unkempt appearance, disheveled. fair eye contact, attentive. No Tics or Tremors. Activated, cooperative, engaged. Non-pressured speech, spontaneous with regular rate and rhythm, normal volume and prosody. No prolonged speech latency or dysarthria. word-finding difficulties due to expressive aphasia. affect is normo-intense, non-labile. no SI/HI/AVH expressed. No known cognitive or memory impairment. Insight/ Judgment limited but adequate. Diagnostics Vital Signs (24Hr): Vital Signs - 24 hr 02/05/22 18:00 Respiratory Rate 16 BMI result Body Mass Index 34.0 Labs Results: 02/03/22 15:33 02/05/22 08:42 Labs: Laboratory Results - last 48 hr 02/05/22 02/05/22 02/05/22 08:42 08:42 08:42 Sodium 142 Potassium 4.7 Chloride 103 Carbon Dioxide 29 Anion Gap 15 BUN 19 H D Creatinine 1.00 Estim Creat Clear Calc 131.2 Estimated GFR > 60 Fasting Glucose 98 Estimat Average Glucose 103 Hemoglobin A1c % 5.2 Calcium 10.1 Total Bilirubin 0.4 Direct Bilirubin 0.2 AST 18 ALT 28 Alkaline Phosphatase 72 Total Protein 7.6 Albumin 4.6 Triglycerides 185 Cholesterol 241 D LDL Cholesterol, Calc 168 HDL Cholesterol 36 Vitamin B12 494 Folate 15.6 TSH 1.07 Free T4 1.05 Medications Medications Current Medications Acetaminophen (Acetaminophen 325 Mg Tablet) 650 mg PO Q6H PRN PRN Reason: Headache/Pain Mild Scale (1-3) Al Hydroxide/Mg Hydroxide (Magnesium Hydrox/Alum Hydrox 30 Ml Oral.Susp) 30 ml PO Q6H PRN PRN Reason: Heartburn/Nausea Divalproex Sodium (Divalproex Sodium Er 500 Mg Tab.Er.24h) 1,500 mg PO BEDTIME [facility] Last Admin: 02/05/22 20:07 Dose: 1,500 mg Divalproex Sodium (Divalproex Sodium Er 250 Mg Tab.Er.24h) 250 mg PO BEDTIME [facility] Last Admin: 02/05/22 20:07 Dose: 250 mg Fluoxetine HCl (Fluoxetine Hcl 20 Mg Capsule) 80 mg PO DAILY [facility] Last Admin: 02/06/22 09:22 Dose: 80 mg Fluticasone Propionate (Fluticasone Propionate Nasal 16 Gm [place]) 1 spray NOSTRIL-B BID PRN PRN Reason: Nasal Congestion Hydroxyzine HCl (Hydroxyzine Hcl 25 Mg Tablet) 25 mg PO TID PRN PRN Reason: Anxiety Magnesium Hydroxide (Milk Of Magnesia 30 Ml Oral.Susp) 30 ml PO DAILY PRN PRN Reason: Constipation Melatonin (Melatonin 3 Mg Tablet) 6 mg PO BEDTIME [facility] Last Admin: 02/05/22 20:07 Dose: 6 mg Memantine (Memantine Hcl 10 Mg Tablet) 10 mg PO BID [facility] Last Admin: 02/06/22 09:22 Dose: 10 mg Risperidone (Risperidone 3 Mg Tablet) 3 mg PO DAILY [facility] Last Admin: 02/06/22 09:22 Dose: 3 mg Risperidone (Risperidone 2 Mg Tablet) 4 mg PO BEDTIME [facility] Last Admin: 02/05/22 20:07 Dose: 4 mg Trazodone HCl (Trazodone Hcl 50 Mg Tablet) 150 mg PO BEDTIME [facility] Last Admin: 02/05/22 20:07 Dose: 150 mg Vitamin E (Vitamin E (Dl,Tocopheryl Acet) 180 Mg (400 Unit) Capsule) 180 mg PO DAILY [facility] Last Admin: 02/06/22 09:22 Dose: 180 mg Allergies Allergies Allergy/AdvReac Type Severity Reaction Status Date / Time No Known Allergies Allergy Verified 02/01/22 11:26 Assessment & Plan Assessment & Plan (1) OCD (obsessive compulsive disorder): Status: Acute Code(s): F42.9 - Obsessive-compulsive disorder, unspecified (2) Expressive language impairment: Status: Acute Code(s): F80.1 - Expressive language disorder (3) Intermittent explosive disorder in adult: Status: Acute Code(s): F63.81 - Intermittent explosive disorder (4) alcohol syndrome: Status: Acute Code(s): 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 will attempt to change VPA formulation to liquid to increase pt's confidence in it. give meds for 5 days, check VPA levels. stabilize and return to skilled nursing. 02/06: no change in plan. continue to attempt to get liquid VPA from outside pharmacy. I spent __20____ minutes with the patient and/or on the patient floor today, greater than?50% of which was spent counseling/coordinating care. Reason for contiued inpatient stay Substantial Risk for: harm to others, inability to function and rapid decompensation
[2022-02-06] MEDS: Divalproex Sodium ER 500 MG TAB.ER.24H 1500 MG PO (20:21)
[2022-02-06] MEDS: Melatonin 3 MG TABLET 6 MG PO (20:21)
[2022-02-06] MEDS: Divalproex Sodium ER 250 MG TAB.ER.24H PO (20:21)
[2022-02-06] MEDS: risperiDONE 2 MG TABLET 4 MG PO (20:21)
[2022-02-06] MEDS: traZODone HCL 50 MG TABLET 150 MG PO (20:22)
[2022-02-06 20:28] VITALS: BP 134/97; PULSE 91; TEMP 36.3; O2SAT 96
[2022-02-07] MEDS: FLUoxetine HCl 20 MG CAPSULE 80 MG PO (09:31)
[2022-02-07] MEDS: risperiDONE 3 MG TABLET PO (09:32)
[2022-02-07] MEDS: Memantine HCl 10 MG TABLET PO ×2 (09:32→20:31)
[2022-02-07] MEDS: Vitamin E (Dl,Tocopheryl Acet) 180 MG (400 UNIT) CAPSULE PO (09:32)
--- NOTE | 2022-02-07 14:53 | HO.PSYCHPN ---
Subjective Subjective Date of Service: 02/07/22 Reason For Visit: Psychosis Interim History: expresses upset at having defecated in the shower and clogged it up. attributes the event to crohn's Dz, in part. MD informs pt and nurse it is MD's understanding that pt was evaluated for said illness and was found not to have it. pt expresses great upset at MD's not supporting his narrative, insisting he does have it or that at least it's possible and that MD rehabilitate him with RN, which MD does. liquid VPA arrived. per staff, anxious. licking hands and then grooming himself as a cat would. spitting onto shoulders, touching doors. Mental Status Exam Mental Status Exam Narrative: A&O. unkempt appearance, disheveled. fair eye contact, attentive. No Tics or Tremors. Activated, cooperative, engaged. Non-pressured speech, spontaneous with regular rate and rhythm, normal volume and prosody. No prolonged speech latency or dysarthria. word-finding difficulties due to expressive aphasia. affect is normo-intense, non-labile. no SI/HI/AVH expressed. No known cognitive or memory impairment. Insight/ Judgment limited but adequate. Diagnostics Vital Signs (24Hr): Vital Signs - 24 hr 02/06/22 20:28 Temperature 97.4 F Pulse Rate 91 Blood Pressure 134/97 H Pulse Oximetry 96 Oxygen Delivery Method Room Air BMI result Body Mass Index 34.0 Labs Results: 02/03/22 15:33 02/05/22 08:42 Medications Medications Current Medications Acetaminophen (Acetaminophen 325 Mg Tablet) 650 mg PO Q6H PRN PRN Reason: Headache/Pain Mild Scale (1-3) Al Hydroxide/Mg Hydroxide (Magnesium Hydrox/Alum Hydrox 30 Ml Oral.Susp) 30 ml PO Q6H PRN PRN Reason: Heartburn/Nausea Fluoxetine HCl (Fluoxetine Hcl 20 Mg Capsule) 80 mg PO DAILY [facility] Last Admin: 02/07/22 09:31 Dose: 80 mg Fluticasone Propionate (Fluticasone Propionate Nasal 16 Gm [place]) 1 spray NOSTRIL-B BID PRN PRN Reason: Nasal Congestion Hydroxyzine HCl (Hydroxyzine Hcl 25 Mg Tablet) 25 mg PO TID PRN PRN Reason: Anxiety Magnesium Hydroxide (Milk Of Magnesia 30 Ml Oral.Susp) 30 ml PO DAILY PRN PRN Reason: Constipation Melatonin (Melatonin 3 Mg Tablet) 6 mg PO BEDTIME [facility] Last Admin: 02/06/22 20:21 Dose: 6 mg Memantine (Memantine Hcl 10 Mg Tablet) 10 mg PO BID [facility] Last Admin: 02/07/22 09:32 Dose: 10 mg Risperidone (Risperidone 3 Mg Tablet) 3 mg PO DAILY [facility] Last Admin: 02/07/22 09:32 Dose: 3 mg Risperidone (Risperidone 2 Mg Tablet) 4 mg PO BEDTIME [facility] Last Admin: 02/06/22 20:21 Dose: 4 mg Trazodone HCl (Trazodone Hcl 50 Mg Tablet) 150 mg PO BEDTIME [facility] Last Admin: 02/06/22 20:22 Dose: 150 mg Valproic Acid (Valproic Acid (As Sodium Salt) 250 Mg/5 Ml Solution) 750 mg PO DAILY [facility] Last Admin: 02/07/22 14:26 Dose: 750 mg Valproic Acid (Valproic Acid (As Sodium Salt) 250 Mg/5 Ml Solution) 1,000 mg PO BEDTIME [facility] Vitamin E (Vitamin E (Dl,Tocopheryl Acet) 180 Mg (400 Unit) Capsule) 180 mg PO DAILY [facility] Last Admin: 02/07/22 09:32 Dose: 180 mg Allergies Allergies Allergy/AdvReac Type Severity Reaction Status Date / Time No Known Allergies Allergy Verified 02/01/22 11:26 Assessment & Plan Assessment & Plan (1) OCD (obsessive compulsive disorder): Status: Acute Code(s): F42.9 - Obsessive-compulsive disorder, unspecified (2) Expressive language impairment: Status: Acute Code(s): F80.1 - Expressive language disorder (3) Intermittent explosive disorder in adult: Status: Acute Code(s): F63.81 - Intermittent explosive disorder (4) alcohol syndrome: Status: Acute Code(s): 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 will attempt to change VPA formulation to liquid to increase pt's confidence in it. give meds for 5 days, check VPA levels. stabilize and return to detention. 02/06: no change in plan. continue to attempt to get liquid VPA from outside pharmacy. 02/07: liquid VPA arrived, being started today. stable presentation. no other events or behaviors of note. I spent __25____ minutes with the patient and/or on the patient floor today, greater than?50% of which was spent counseling/coordinating care. Reason for contiued inpatient stay Substantial Risk for: harm to self, harm to others, inability to function and rapid decompensation
[2022-02-07] MEDS: risperiDONE 2 MG TABLET 4 MG PO (20:30)
[2022-02-07] MEDS: Melatonin 3 MG TABLET 6 MG PO (20:31)
[2022-02-07] MEDS: traZODone HCL 50 MG TABLET 150 MG PO (20:31)
[2022-02-08 08:44] VITALS: RESP 17
[2022-02-08] MEDS: FLUoxetine HCl 20 MG CAPSULE 80 MG PO (08:48)
[2022-02-08] MEDS: Vitamin E (Dl,Tocopheryl Acet) 180 MG (400 UNIT) CAPSULE PO (08:49)
[2022-02-08] MEDS: risperiDONE 3 MG TABLET PO (08:49)
[2022-02-08] MEDS: Memantine HCl 10 MG TABLET PO ×2 (08:49→20:02)
--- NOTE | 2022-02-08 14:23 | HO.PSYCHPN ---
Subjective Subjective Date of Service: 02/08/22 Reason For Visit: Psychosis Interim History: remains in bed for interview. spitting on blanket, then sucking it back in. feeling well, tolerating new meds OK. asking for mtg btwn inpt staff and outpt staff prior to discharge. per staff, denies anx/dep. denies AVH. restless sleep. guarded but pleasant. some verbal abuse toward staff when not getting his medications at the time he wanted them, later apologized. Mental Status Exam Mental Status Exam Narrative: A&O. unkempt appearance, disheveled. fair eye contact, attentive. No Tics or Tremors. Activated, cooperative, engaged. Non-pressured speech, spontaneous with regular rate and rhythm, normal volume and prosody. No prolonged speech latency or dysarthria. word-finding difficulties due to expressive aphasia. affect is normo-intense, non-labile. no SI/HI/AVH expressed. No known cognitive or memory impairment. Insight/ Judgment limited but adequate. Diagnostics Vital Signs (24Hr): Vital Signs - 24 hr 02/08/22 08:44 Respiratory Rate 17 BMI result Body Mass Index 34.0 Labs Results: 02/03/22 15:33 02/05/22 08:42 Medications Medications Current Medications Acetaminophen (Acetaminophen 325 Mg Tablet) 650 mg PO Q6H PRN PRN Reason: Headache/Pain Mild Scale (1-3) Al Hydroxide/Mg Hydroxide (Magnesium Hydrox/Alum Hydrox 30 Ml Oral.Susp) 30 ml PO Q6H PRN PRN Reason: Heartburn/Nausea Fluoxetine HCl (Fluoxetine Hcl 20 Mg Capsule) 80 mg PO DAILY [facility] Last Admin: 02/08/22 08:48 Dose: 80 mg Fluticasone Propionate (Fluticasone Propionate Nasal 16 Gm [place]) 1 spray NOSTRIL-B BID PRN PRN Reason: Nasal Congestion Hydroxyzine HCl (Hydroxyzine Hcl 25 Mg Tablet) 25 mg PO TID PRN PRN Reason: Anxiety Magnesium Hydroxide (Milk Of Magnesia 30 Ml Oral.Susp) 30 ml PO DAILY PRN PRN Reason: Constipation Melatonin (Melatonin 3 Mg Tablet) 6 mg PO BEDTIME [facility] Last Admin: 02/07/22 20:31 Dose: 6 mg Memantine (Memantine Hcl 10 Mg Tablet) 10 mg PO BID [facility] Last Admin: 02/08/22 08:49 Dose: 10 mg Risperidone (Risperidone 3 Mg Tablet) 3 mg PO DAILY [facility] Last Admin: 02/08/22 08:49 Dose: 3 mg Risperidone (Risperidone 2 Mg Tablet) 4 mg PO BEDTIME [facility] Last Admin: 02/07/22 20:30 Dose: 4 mg Trazodone HCl (Trazodone Hcl 50 Mg Tablet) 150 mg PO BEDTIME [facility] Last Admin: 02/07/22 20:31 Dose: 150 mg Valproic Acid (Valproic Acid (As Sodium Salt) 250 Mg/5 Ml Solution) 750 mg PO DAILY [facility] Last Admin: 02/08/22 08:48 Dose: 750 mg Valproic Acid (Valproic Acid (As Sodium Salt) 250 Mg/5 Ml Solution) 1,000 mg PO BEDTIME [facility] Last Admin: 02/07/22 20:31 Dose: 1,000 mg Vitamin E (Vitamin E (Dl,Tocopheryl Acet) 180 Mg (400 Unit) Capsule) 180 mg PO DAILY [facility] Last Admin: 02/08/22 08:49 Dose: 180 mg Allergies Allergies Allergy/AdvReac Type Severity Reaction Status Date / Time No Known Allergies Allergy Verified 02/01/22 11:26 Assessment & Plan Assessment & Plan (1) OCD (obsessive compulsive disorder): Status: Acute Code(s): F42.9 - Obsessive-compulsive disorder, unspecified (2) Expressive language impairment: Status: Acute Code(s): F80.1 - Expressive language disorder (3) Intermittent explosive disorder in adult: Status: Acute Code(s): F63.81 - Intermittent explosive disorder (4) alcohol syndrome: Status: Acute Code(s): 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 will attempt to change VPA formulation to liquid to increase pt's confidence in it. give meds for 5 days, check VPA levels. stabilize and return to snf. 02/06: no change in plan. continue to attempt to get liquid VPA from outside pharmacy. 02/07: liquid VPA arrived, being started today. stable presentation. no other events or behaviors of note. 02/08: tolerating liquid VPA fine. no change in presentation. I spent ___20___ minutes with the patient and/or on the patient floor today, greater than?50% of which was spent counseling/coordinating care. Reason for contiued inpatient stay Substantial Risk for: harm to self, harm to others, inability to function and rapid decompensation
[2022-02-08] MEDS: risperiDONE 2 MG TABLET 4 MG PO (20:02)
[2022-02-08] MEDS: traZODone HCL 50 MG TABLET 150 MG PO (20:02)
[2022-02-08] MEDS: Melatonin 3 MG TABLET 6 MG PO (20:02)
[2022-02-08 20:04] VITALS: BP 134/74; PULSE 66; RESP 18; TEMP 36.2; O2SAT 97
[2022-02-09] MEDS: risperiDONE 3 MG TABLET PO (09:32)
[2022-02-09] MEDS: Memantine HCl 10 MG TABLET PO ×2 (09:32→20:12)
[2022-02-09] MEDS: FLUoxetine HCl 20 MG CAPSULE 80 MG PO (09:32)
[2022-02-09] MEDS: Vitamin E (Dl,Tocopheryl Acet) 180 MG (400 UNIT) CAPSULE PO (09:36)
--- NOTE | 2022-02-09 15:52 | P.PNPSI_ITS ---
Subjective Subjective Date of Service: 02/09/22 Reason For Visit: Psychosis Subjective Notes: Conditional Voluntary Healthcare Proxy: No Guardianship: No (?) Medical Problems Affecting Mental Status: No Interim History: Pt reports feeling a bit better, tolerating changes in medications and doesn't want to have further changes before sees dr parrish Nursing reports pt less anxious or depressed, less intrussive, ongoing mannerisms (may be consistent with ASD?) isolative Medication Compliance: Yes Side effects from medications: No Attending Groups: No Review of Systems Acute medical concerns: No Mental Status Exam Mental Status Exam Narrative: lyiing in bed Patient Appearance: Disheveled and Unkempt Patient Orientation: Person, Place, Time and Situation Level of Consciousness: Awake Patient Behavior: Dependent and Isolative Mood Description: Calm and Withdrawn Affect Description: Blunted Ability to Follow Directions: Fair Speech Pattern: Mumbled Thought Process: Distracted and Slowed Thinking Thought Content: positive for [place] and positive for Slowed Thinking Depressive Symptoms: Difficulty Concentrating Judgement: Fair Diagnostics Vital Signs (24Hr): Vital Signs - 24 hr 02/08/22 20:04 Temperature 97.2 F Pulse Rate 66 Respiratory Rate 18 Blood Pressure 134/74 Pulse Oximetry 97 Oxygen Delivery Method Room Air BMI result Body Mass Index 34.0 Labs Results: 02/03/22 15:33 02/05/22 08:42 Medications Medications Current Medications Acetaminophen (Acetaminophen 325 Mg Tablet) 650 mg PO Q6H PRN PRN Reason: Headache/Pain Mild Scale (1-3) Al Hydroxide/Mg Hydroxide (Magnesium Hydrox/Alum Hydrox 30 Ml Oral.Susp) 30 ml PO Q6H PRN PRN Reason: Heartburn/Nausea Fluoxetine HCl (Fluoxetine Hcl 20 Mg Capsule) 80 mg PO DAILY [facility] Last Admin: 02/09/22 09:32 Dose: 80 mg Fluticasone Propionate (Fluticasone Propionate Nasal 16 Gm [place]) 1 spray NOSTRIL-B BID PRN PRN Reason: Nasal Congestion Hydroxyzine HCl (Hydroxyzine Hcl 25 Mg Tablet) 25 mg PO TID PRN PRN Reason: Anxiety Magnesium Hydroxide (Milk Of Magnesia 30 Ml Oral.Susp) 30 ml PO DAILY PRN PRN Reason: Constipation Melatonin (Melatonin 3 Mg Tablet) 6 mg PO BEDTIME [facility] Last Admin: 02/08/22 20:02 Dose: 6 mg Memantine (Memantine Hcl 10 Mg Tablet) 10 mg PO BID [facility] Last Admin: 02/09/22 09:32 Dose: 10 mg Risperidone (Risperidone 3 Mg Tablet) 3 mg PO DAILY [facility] Last Admin: 02/09/22 09:32 Dose: 3 mg Risperidone (Risperidone 2 Mg Tablet) 4 mg PO BEDTIME [facility] Last Admin: 02/08/22 20:02 Dose: 4 mg Trazodone HCl (Trazodone Hcl 50 Mg Tablet) 150 mg PO BEDTIME [facility] Last Admin: 02/08/22 20:02 Dose: 150 mg Valproic Acid (Valproic Acid (As Sodium Salt) 250 Mg/5 Ml Solution) 750 mg PO DAILY [facility] Last Admin: 02/09/22 09:31 Dose: 750 mg Valproic Acid (Valproic Acid (As Sodium Salt) 250 Mg/5 Ml Solution) 1,000 mg PO BEDTIME [facility] Last Admin: 02/08/22 20:03 Dose: 1,000 mg Vitamin E (Vitamin E (Dl,Tocopheryl Acet) 180 Mg (400 Unit) Capsule) 180 mg PO DAILY [facility] Last Admin: 02/09/22 09:36 Dose: 180 mg Allergies Allergies Allergy/AdvReac Type Severity Reaction Status Date / Time No Known Allergies Allergy Verified 02/01/22 11:26 Assessment & Plan Assessment & Plan (1) OCD (obsessive compulsive disorder): Status: Acute Code(s): F42.9 - Obsessive-compulsive disorder, unspecified Assessment and Plan: on fluoxetine 80mg, risperidone (2) Expressive language impairment: Status: Acute Code(s): F80.1 - Expressive language disorder Assessment and Plan: continue to meet him where he is at with his communication- (3) Intermittent explosive disorder in adult: Status: Acute Code(s): F63.81 - Intermittent explosive disorder Assessment and Plan: on depakote (4) alcohol syndrome: Status: Acute Code(s): 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 will attempt to change VPA formulation to liquid to increase pt's confidence in it. give meds for 5 days, check VPA levels. stabilize and return to long term. 02/06: no change in plan. continue to attempt to get liquid VPA from outside pharmacy. 02/07: liquid VPA arrived, being started today. stable presentation. no other events or behaviors of note. 02/08: tolerating liquid VPA fine. no change in presentation. I spent minutes with the patient and/or on the patient floor today, greater than?50% of which was spent counseling/coordinating care. Patient educated on: medication risk/benefits Informed Consent: understands Reason for contiued inpatient stay Substantial Risk for: rapid decompensation
[2022-02-09 20:08] VITALS: BP 130/83; PULSE 75; RESP 18; TEMP 36.4
[2022-02-09] MEDS: risperiDONE 2 MG TABLET 4 MG PO (20:12)
[2022-02-09] MEDS: Melatonin 3 MG TABLET 6 MG PO (20:12)
[2022-02-09] MEDS: traZODone HCL 50 MG TABLET 150 MG PO (20:12)
[2022-02-10] MEDS: FLUoxetine HCl 20 MG CAPSULE 80 MG PO (09:39)
[2022-02-10] MEDS: Memantine HCl 10 MG TABLET PO ×2 (09:40→20:04)
[2022-02-10] MEDS: risperiDONE 3 MG TABLET PO (09:40)
[2022-02-10] MEDS: Vitamin E (Dl,Tocopheryl Acet) 180 MG (400 UNIT) CAPSULE PO (09:40)
--- NOTE | 2022-02-10 10:35 | P.PNPSI_ITS ---
Subjective Subjective Date of Service: 02/10/22 Reason For Visit: Psychosis Subjective Notes: Conditional Voluntary Medical Problems Affecting Mental Status: No Interim History: Pt requesting changing meds so that mostly night - due to sedating qualities in day nursing reports pt spiritual and swearing at staff trying to touch people intrussive- Medication Compliance: Yes Side effects from medications: Yes (co sedation today (though does not appear sedated)) Attending Groups: Intermittent Review of Systems Acute medical concerns: No Mental Status Exam Mental Status Exam Patient Appearance: Appropriate Patient Orientation: Person, Place, Time and Situation Level of Consciousness: Awake and Alert Patient Behavior: Talkative, Hyperactive, Restless and Invasion - Personal Space Mood Description: Euphoric Affect Description: Labile Ability to Follow Directions: Fair Speech Pattern: Clear and Pressured Hallucinations: None Delusions: Paranoid Ideation Thought Process: Illogical and Distracted Thought Content: positive for Preoccupation and positive for Tangential Depressive Symptoms: Loss of Energy (reported by pt) and Difficulty Concentrating Abnormal Motor Activity Signs and Symptoms: Restlessness Judgement: Poor Diagnostics Vital Signs (24Hr): Vital Signs - 24 hr 02/09/22 20:08 Temperature 97.6 F Pulse Rate 75 Respiratory Rate 18 Blood Pressure 130/83 BMI result Body Mass Index 34.0 Labs Results: 02/03/22 15:33 02/05/22 08:42 Labs: check lfts and valproic acid level Medications Medications Current Medications Acetaminophen (Acetaminophen 325 Mg Tablet) 650 mg PO Q6H PRN PRN Reason: Headache/Pain Mild Scale (1-3) Al Hydroxide/Mg Hydroxide (Magnesium Hydrox/Alum Hydrox 30 Ml Oral.Susp) 30 ml PO Q6H PRN PRN Reason: Heartburn/Nausea Fluoxetine HCl (Fluoxetine Hcl 20 Mg Capsule) 80 mg PO DAILY [facility] Last Admin: 02/10/22 09:39 Dose: 80 mg Fluticasone Propionate (Fluticasone Propionate Nasal 16 Gm [place]) 1 spray NOSTRIL-B BID PRN PRN Reason: Nasal Congestion Hydroxyzine HCl (Hydroxyzine Hcl 25 Mg Tablet) 25 mg PO TID PRN PRN Reason: Anxiety Magnesium Hydroxide (Milk Of Magnesia 30 Ml Oral.Susp) 30 ml PO DAILY PRN PRN Reason: Constipation Melatonin (Melatonin 3 Mg Tablet) 6 mg PO BEDTIME [facility] Last Admin: 02/09/22 20:12 Dose: 6 mg Memantine (Memantine Hcl 10 Mg Tablet) 10 mg PO BID [facility] Last Admin: 02/10/22 09:40 Dose: 10 mg Risperidone (Risperidone 3 Mg Tablet) 3 mg PO DAILY [facility] Last Admin: 02/10/22 09:40 Dose: 3 mg Risperidone (Risperidone 2 Mg Tablet) 4 mg PO BEDTIME [facility] Last Admin: 02/09/22 20:12 Dose: 4 mg Trazodone HCl (Trazodone Hcl 50 Mg Tablet) 150 mg PO BEDTIME [facility] Last Admin: 02/09/22 20:12 Dose: 150 mg Valproic Acid (Valproic Acid (As Sodium Salt) 250 Mg/5 Ml Solution) 750 mg PO DAILY [facility] Last Admin: 02/10/22 09:41 Dose: 750 mg Valproic Acid (Valproic Acid (As Sodium Salt) 250 Mg/5 Ml Solution) 1,000 mg PO BEDTIME [facility] Last Admin: 02/09/22 20:12 Dose: 1,000 mg Vitamin E (Vitamin E (Dl,Tocopheryl Acet) 180 Mg (400 Unit) Capsule) 180 mg PO DAILY [facility] Last Admin: 02/10/22 09:40 Dose: 180 mg Allergies Allergies Allergy/AdvReac Type Severity Reaction Status Date / Time No Known Allergies Allergy Verified 02/01/22 11:26 Assessment & Plan Assessment & Plan (1) OCD (obsessive compulsive disorder): Status: Acute Code(s): F42.9 - Obsessive-compulsive disorder, unspecified Assessment and Plan: on fluoxetine 80mg, risperidone (2) Expressive language impairment: Status: Acute Code(s): F80.1 - Expressive language disorder Assessment and Plan: continue to meet him where he is at with his communication- (3) Intermittent explosive disorder in adult: Status: Acute Code(s): F63.81 - Intermittent explosive disorder Assessment and Plan: on depakote, will dec am dose and inc pm dose as per pt request (4) alcohol syndrome: Status: Acute Code(s): 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 will attempt to change VPA formulation to liquid to increase pt's confidence in it. give meds for 5 days, check VPA levels. stabilize and return to alf. 02/06: no change in plan. continue to attempt to get liquid VPA from outside pharmacy. 9/29: liquid VPA arrived, being started today. stable presentation. no other events or behaviors of note. 02/08: tolerating liquid VPA fine. no change in presentation. I spent minutes with the patient and/or on the patient floor today, greater than?50% of which was spent counseling/coordinating care. Patient educated on: medication risk/benefits Informed Consent: understands Reason for contiued inpatient stay Substantial Risk for: harm to others and rapid decompensation
[2022-02-10] MEDS: risperiDONE 2 MG TABLET 4 MG PO (20:04)
[2022-02-10] MEDS: traZODone HCL 50 MG TABLET 150 MG PO (20:04)
[2022-02-10 20:05] VITALS: BP 132/92; PULSE 72; RESP 16; TEMP 36.6; O2SAT 94
[2022-02-10] MEDS: Melatonin 3 MG TABLET 6 MG PO (20:05)
[2022-02-11 08:41] LABS: Valproate 54.1 mcg/mL (50.0-100.0)
[2022-02-11 09:09] VITALS: RESP 17
[2022-02-11] MEDS: Memantine HCl 10 MG TABLET PO ×2 (09:11→19:57)
[2022-02-11] MEDS: risperiDONE 3 MG TABLET PO (09:11)
[2022-02-11] MEDS: FLUoxetine HCl 20 MG CAPSULE 80 MG PO (09:12)
[2022-02-11] MEDS: Vitamin E (Dl,Tocopheryl Acet) 180 MG (400 UNIT) CAPSULE PO (09:12)
--- NOTE | 2022-02-11 15:57 | P.PNPSI_ITS ---
Subjective Subjective Date of Service: 02/11/22 Reason For Visit: Psychosis Interim History: calm, cooperative. asking about discharge. states he had his VPA level drawn today; MD reviewed, and it was around 50. pt asks to increase dosing by 1000 mg daily once therapeutic range discussed by MD, agrees to increase dosing by 500 mg. pt hopeful for discharge later this week. planning for . per staff, feeling safe. loose and vulgar language noted. med-compliant, sleeping well. Mental Status Exam Mental Status Exam Narrative: A&O. unkempt appearance, disheveled. fair eye contact, attentive. No Tics or Tremors. Activated, cooperative, engaged. Non-pressured speech, spontaneous with regular rate and rhythm, normal volume and prosody. No prolonged speech latency or dysarthria. word-finding difficulties due to expressive aphasia. affect is normo-intense, non-labile. no SI/HI/AVH expressed. Insight/ Judgment limited but adequate. Diagnostics Vital Signs (24Hr): Vital Signs - 24 hr 02/10/22 20:05 02/11/22 09:09 Temperature 97.9 F Pulse Rate 72 Respiratory Rate 16 17 Blood Pressure 132/92 H Pulse Oximetry 94 Oxygen Delivery Method Room Air BMI result Body Mass Index 34.0 Labs Results: 02/03/22 15:33 02/05/22 08:42 Labs: Laboratory Results - last 48 hr 02/11/22 07:58 Valproic Acid 54.1 Medications Medications Current Medications Acetaminophen (Acetaminophen 325 Mg Tablet) 650 mg PO Q6H PRN PRN Reason: Headache/Pain Mild Scale (1-3) Al Hydroxide/Mg Hydroxide (Magnesium Hydrox/Alum Hydrox 30 Ml Oral.Susp) 30 ml PO Q6H PRN PRN Reason: Heartburn/Nausea Fluoxetine HCl (Fluoxetine Hcl 20 Mg Capsule) 80 mg PO DAILY [facility] Last Admin: 02/11/22 09:12 Dose: 80 mg Fluticasone Propionate (Fluticasone Propionate Nasal 16 Gm [place]) 1 spray NOSTRIL-B BID PRN PRN Reason: Nasal Congestion Hydroxyzine HCl (Hydroxyzine Hcl 25 Mg Tablet) 25 mg PO TID PRN PRN Reason: Anxiety Magnesium Hydroxide (Milk Of Magnesia 30 Ml Oral.Susp) 30 ml PO DAILY PRN PRN Reason: Constipation Melatonin (Melatonin 3 Mg Tablet) 6 mg PO BEDTIME [facility] Last Admin: 10/02/22 20:05 Dose: 6 mg Memantine (Memantine Hcl 10 Mg Tablet) 10 mg PO BID [facility] Last Admin: 02/11/22 09:11 Dose: 10 mg Risperidone (Risperidone 3 Mg Tablet) 3 mg PO DAILY [facility] Last Admin: 02/11/22 09:11 Dose: 3 mg Risperidone (Risperidone 2 Mg Tablet) 4 mg PO BEDTIME [facility] Last Admin: 02/10/22 20:04 Dose: 4 mg Trazodone HCl (Trazodone Hcl 50 Mg Tablet) 150 mg PO BEDTIME [facility] Last Admin: 02/10/22 20:04 Dose: 150 mg Valproic Acid (Valproic Acid (As Sodium Salt) 250 Mg/5 Ml Solution) 1,250 mg PO BEDTIME JANET Valproic Acid (Valproic Acid (As Sodium Salt) 250 Mg/5 Ml Solution) 1,000 mg PO DAILY [facility] Vitamin E (Vitamin E (Dl,Tocopheryl Acet) 180 Mg (400 Unit) Capsule) 180 mg PO DAILY [facility] Last Admin: 02/11/22 09:12 Dose: 180 mg Allergies Allergies Allergy/AdvReac Type Severity Reaction Status Date / Time No Known Allergies Allergy Verified 02/01/22 11:26 Assessment & Plan Assessment & Plan (1) OCD (obsessive compulsive disorder): Status: Acute Code(s): F42.9 - Obsessive-compulsive disorder, unspecified Assessment and Plan: on fluoxetine 80mg, risperidone (2) Expressive language impairment: Status: Acute Code(s): F80.1 - Expressive language disorder Assessment and Plan: continue to meet him where he is at with his communication- (3) Intermittent explosive disorder in adult: Status: Acute Code(s): F63.81 - Intermittent explosive disorder Assessment and Plan: on depakote, will dec am dose and inc pm dose as per pt request (4) alcohol syndrome: Status: Acute Code(s): 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 will attempt to change VPA formulation to liquid to increase pt's confidence in it. give meds for 5 days, check VPA levels. stabilize and return [facility]. 02/06: no change in plan. continue to attempt to get liquid VPA from outside pharmacy. 02/07: liquid VPA arrived, being started today. stable presentation. no other events or behaviors of note. 02/08: tolerating liquid VPA fine. no change in presentation. 02/11: stable presentation. VPA level 54 on 1750 mg daily. dosing increased to 2250 mg daily. planning for discharge late week. I spent ___25___ minutes with the patient and/or on the patient floor today, greater than?50% of which was spent counseling/coordinating care. Reason for contiued inpatient stay Substantial Risk for: harm to others, inability to function and rapid de compensation
[2022-02-11 19:55] VITALS: BP 128/78; PULSE 70; RESP 16; TEMP 36.4; O2SAT 96
[2022-02-11] MEDS: risperiDONE 2 MG TABLET 4 MG PO (19:57)
[2022-02-11] MEDS: Melatonin 3 MG TABLET 6 MG PO (19:57)
[2022-02-11] MEDS: traZODone HCL 50 MG TABLET 150 MG PO (19:57)
[2022-02-12] MEDS: risperiDONE 3 MG TABLET PO (08:41)
[2022-02-12] MEDS: Vitamin E (Dl,Tocopheryl Acet) 180 MG (400 UNIT) CAPSULE PO (08:41)
[2022-02-12] MEDS: Memantine HCl 10 MG TABLET PO ×2 (08:41→20:15)
[2022-02-12] MEDS: FLUoxetine HCl 20 MG CAPSULE 80 MG PO (08:42)
--- NOTE | 2022-02-12 09:58 | PC.NURSE ---
Patient offered annual flu vaccine 2021. Patient declined, states he does not want flu vaccine.
--- NOTE | 2022-02-12 14:11 | P.PNPSI_ITS ---
Subjective Subjective Date of Service: 02/12/22 Reason For Visit: Psychosis Interim History: calm, cooperative. seen with SW. strongly wanting to leave tomorrow. reports he slept well, eating well, toileting well, getting along with others. no complaints or requests other than to discharge and to further increase VPA dosing, which was declined. pt will F/U with his outpt provider. per staff, pleasant. denies psych Sx. napping. safe. no anx/dep eves. restless sleep. eating well. poor boundaries. Mental Status Exam Mental Status Exam Narrative: A&O. unkempt appearance, disheveled. fair eye contact, attentive. No Tics or Tremors. Activated, cooperative, engaged. Non-pressured speech, spontaneous with regular rate and rhythm, normal volume and prosody. No prolonged speech latency or dysarthria. word-finding difficulties due to expressive aphasia. affect is hyper-intense, min-labile. no SI/HI/AVH expressed. Insight/ Judgment limited but adequate. Diagnostics Vital Signs (24Hr): Vital Signs - 24 hr 02/11/22 19:55 Temperature 97.5 F Pulse Rate 70 Respiratory Rate 16 Blood Pressure 128/78 Pulse Oximetry 96 Oxygen Delivery Method Room Air BMI result Body Mass Index 34.0 Labs Results: 02/03/22 15:33 02/05/22 08:42 Labs: Laboratory Results - last 48 hr 02/11/22 07:58 Valproic Acid 54.1 Medications Medications Current Medications Acetaminophen (Acetaminophen 325 Mg Tablet) 650 mg PO Q6H PRN PRN Reason: Headache/Pain Mild Scale (1-3) Al Hydroxide/Mg Hydroxide (Magnesium Hydrox/Alum Hydrox 30 Ml Oral.Susp) 30 ml PO Q6H PRN PRN Reason: Heartburn/Nausea Fluoxetine HCl (Fluoxetine Hcl 20 Mg Capsule) 80 mg PO DAILY [facility] Last Admin: 02/12/22 08:42 Dose: 80 mg Fluticasone Propionate (Fluticasone Propionate Nasal 16 Gm [place]) 1 spray NOSTRIL-B BID PRN PRN Reason: Nasal Congestion Hydroxyzine HCl (Hydroxyzine Hcl 25 Mg Tablet) 25 mg PO TID PRN PRN Reason: Anxiety Magnesium Hydroxide (Milk Of Magnesia 30 Ml Oral.Susp) 30 ml PO DAILY PRN PRN Reason: Constipation Melatonin (Melatonin 3 Mg Tablet) 6 mg PO BEDTIME [facility] Last Admin: 02/11/22 19:57 Dose: 6 mg Memantine (Memantine Hcl 10 Mg Tablet) 10 mg PO BID [facility] Last Admin: 02/12/22 08:41 Dose: 10 mg Risperidone (Risperidone 3 Mg Tablet) 3 mg PO DAILY [facility] Last Admin: 02/12/22 08:41 Dose: 3 mg Risperidone (Risperidone 2 Mg Tablet) 4 mg PO BEDTIME [facility] Last Admin: 02/11/22 19:57 Dose: 4 mg Trazodone HCl (Trazodone Hcl 50 Mg Tablet) 150 mg PO BEDTIME [facility] Last Admin: 02/11/22 19:57 Dose: 150 mg Valproic Acid (Valproic Acid (As Sodium Salt) 250 Mg/5 Ml Solution) 1,250 mg PO BEDTIME [facility] Last Admin: 02/11/22 19:58 Dose: 1,250 mg Valproic Acid (Valproic Acid (As Sodium Salt) 250 Mg/5 Ml Solution) 1,000 mg PO DAILY [facility] Last Admin: 02/12/22 08:40 Dose: 1,000 mg Vitamin E (Vitamin E (Dl,Tocopheryl Acet) 180 Mg (400 Unit) Capsule) 180 mg PO DAILY [facility] Last Admin: 02/12/22 08:41 Dose: 180 mg Allergies Allergies Allergy/AdvReac Type Severity Reaction Status Date / Time No Known Allergies Allergy Verified 02/01/22 11:26 Assessment & Plan Assessment & Plan (1) OCD (obsessive compulsive disorder): Status: Acute Code(s): F42.9 - Obsessive-compulsive disorder, unspecified Assessment and Plan: on fluoxetine 80mg, risperidone (2) Expressive language impairment: Status: Acute Code(s): F80.1 - Expressive language disorder Assessment and Plan: continue to meet him where he is at with his communication- (3) Intermittent explosive disorder in adult: Status: Acute Code(s): F63.81 - Intermittent explosive disorder Assessment and Plan: on depakote, will dec am dose and inc pm dose as per pt request (4) alcohol syndrome: Status: Acute Code(s): 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 will attempt to change VPA formulation to liquid to increase pt's confidence in it. give meds for 5 days, check VPA levels. stabilize and return to custodial. 02/06: no change in plan. continue to attempt to get liquid VPA from outside pharmacy. 02/07: liquid VPA arrived, being started today. stable presentation. no other events or behaviors of note. 02/08: tolerating liquid VPA fine. no change in presentation. 02/11: stable presentation. VPA level 54 on 1750 mg daily. dosing increased to 2250 mg daily. planning for discharge late week. 02/12: stable, continue current mgmt. discharge tomorrow. I spent ___25___ minutes with the patient and/or on the patient floor today, greater than?50% of which was spent counseling/coordinating care. Reason for contiued inpatient stay Substantial Risk for: inability to function and rapid decompensation
[2022-02-12] MEDS: traZODone HCL 50 MG TABLET 150 MG PO (20:14)
[2022-02-12] MEDS: Melatonin 3 MG TABLET 6 MG PO (20:15)
[2022-02-12] MEDS: risperiDONE 2 MG TABLET 4 MG PO (20:15)
[2022-02-13] MEDS: Memantine HCl 10 MG TABLET PO (08:33)
[2022-02-13] MEDS: risperiDONE 3 MG TABLET PO (08:34)
[2022-02-13] MEDS: Vitamin E (Dl,Tocopheryl Acet) 180 MG (400 UNIT) CAPSULE PO (08:34)
[2022-02-13] MEDS: FLUoxetine HCl 20 MG CAPSULE 80 MG PO (08:34)
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
--- NOTE | 2022-02-13 10:55 | PC.NURSE ---
Patient is alert and oriented. Patient is in agreement with discharge and verbalizes a readiness for discharge. Patient denies SI/HI/AH/VH. Patient denies acute complaints.
== END 2022-02-13 10:50 | disposition home or self-care (01) | DRG 883 ==
LOC: HO.ED 17:24 → HO.PADLT16 02-04 15:32
PROVIDERS: Physician Assistant; Psychiatry & Neurology Psychiatry; Admitting Provider Psychiatry & Neurology Psychiatry; Emergency Provider Internal Medicine; PCP Internal Medicine; Visit Provider Psychiatry & Neurology Psychiatry
DX: F63.81 Intermittent explosive disorder (principal); F42.9 Obsessive-compulsive disorder, unspecified; F80.1 Expressive language disorder; Q86.0 Fetal alcohol syndrome (dysmorphic); Z20.822 Contact with and (suspected) exposure to COVID-19; Z87.891 Personal history of nicotine dependence; Z79.51 Long term (current) use of inhaled steroids; Z79.899 Other long term (current) drug therapy
CPT/HCPCS: 36415; 80048; 80053; 80061; 80076; 80143; 80164; 80179; 80307; 82607; 82746; 83036; 83690; 84439; 84443; 85025; 87635; 99285

== ENCOUNTER 2022-02-14 13:43 | Inpatient (IN) | payer OTHER, SELFPAY ==
--- NOTE | 2022-02-14 | ECG_ITS ---
Test Reason : MED CLEARANCE Blood Pressure : / mmHG Vent. Rate : 079 BPM Atrial Rate : 079 BPM P-R Int : 166 ms QRS Dur : 094 ms QT Int : 388 ms P-R-T Axes : 048 051 055 degrees QTc Int : 444 ms Normal sinus rhythm Normal ECG No previous ECGs available Referred By: Kiana Gonzales Electronically Signed By:
[2022-02-14 13:58] VITALS: BP 111/85; PULSE 93; RESP 20; TEMP 36.3; O2SAT 97; BMI 32.1
--- NOTE | 2022-02-14 16:18 | ED.PSYCH ---
HPI - Psych General Chief Complaint: Psychiatric Symptoms Stated Complaint: CRISIS Time Seen by Provider: 02/14/22 16:09 Source: patient Mode of arrival: ambulatory Limitations: other (Tells me he has 2 overwhelmed to provide me a full history) History of Present Illness HPI Narrative: 42-year-old male history of OCD, delusion, anxiety and depression presenting to the emergency department with complaints of worsening OCD, patient tells me that he has been speaking in 1st person knee feels like his medications are not at the proper dose. Tells me he was recently admitted and he feels like he is worse than he was when he came in. He tells me that he feels like he is having mood swings from happy to angry to sad. He reports at times he is feeling homicidal towards others with no particular plan, he tells me sometimes he has thoughts of punching people. He denies suicidal ideation. Denies drugs, alcohol tobacco. Denies visual, auditory and tactile hallucinations. Tells me he would like to be admitted and evaluated by Psychiatry. Denies medical complaints at this time Related Data Home Medications Medication Instructions Recorded Confirmed fluticasone propionate 50 1 spray intranasal BID PRN Nasal 10/26/21 02/14/22 mcg/actuation nasal Congestion spray,suspension hydroxyzine HCl 25 mg tablet 1 tab PO TID PRN Anxiety 10/26/21 02/14/22 melatonin 3 mg tablet 6 mg PO BEDTIME 10/26/21 02/14/22 memantine 10 mg tablet 1 tab PO BID 10/26/21 02/14/22 risperidone 4 mg tablet 1 tab PO BEDTIME 10/26/21 02/14/22 trazodone 150 mg tablet 1 tab PO BEDTIME 10/26/21 02/14/22 vitamin E (dl, acetate) 180 mg 400 unit PO DAILY 10/26/21 02/14/22 (400 unit) capsule risperidone 3 mg tablet 1 tab PO DAILY 02/03/22 02/14/22 fluoxetine 40 mg capsule 80 mg PO DAILY 02/14/22 02/14/22 Previous Rx's Medication Instructions Recorded valproic acid (as sodium salt) 250 1,000 mg (20 mL) PO DAILY 30 days 02/13/22 mg/5 mL (5 mL) oral solution #600 mL valproic acid (as sodium salt) 250 1,250 mg (25 mL) PO BEDTIME 30 02/13/22 mg/5 mL (5 mL) oral solution days #750 mL Allergies Allergy/AdvReac Type Severity Reaction Status Date / Time No Known Allergies Allergy Verified 02/01/22 11:26 Review of Systems Review of Systems: Constitutional : No Weight loss, No Fever, No Chills, No Fatigue, No Malaise ENT/Mouth : No sore throat, No Rhinorrhea Eyes: No Eye Pain, No Swelling, No Redness Cardiovascular : No Chest Pain, No SOB, No Dyspnea on Exertion, No Orthopnea, No Edema, No Palpitations Respiratory : No Cough, No Sputum, No Wheezing Gastrointestinal : No Nausea, No Vomiting, No Diarrhea, No Constipation, No abdominal Pain, No Hematochezia, No Melena Genitourinary : No Dysuria, No Urinary Frequency, No Hematuria, Musculoskeletal : No joint pain, No Myalgias, No Joint Swelling Skin : No Skin Lesions, No rash Neuro : No Weakness, No Numbness, No Dizziness, No Headache Psych : + Anxiety/Panic, No Depression, + HI, No SI All other systems reviewed and are negative Yes all other systems are reviewed and are negative [facility] Past Medical History Attestation statement: The following information was validated with the patient. Source: old records reviewed and nursing notes reviewed Medical History Anal fistula Anxiety and depression Obsessive compulsive disorder Screening for diabetes mellitus Screening for hyperlipidemia Surgical History No pertinent past surgical history Family History Family History Mother No problems noted. Father No problems noted. Other Substance use disorder Social History Social History Household Members: Other Household Members Other:: Pt lives in [facility] residential care home. Housing: Unknown / Unable to assess Housing Other:: care home Unable to assess alcohol history related to: Unknown Alcohol intake: never Patient Tobacco Use Status: Former Tobacco user Quit Date: January 2021 Tobacco use type: Cigarette Cigarettes Per Day: 15 Years Smoked: 17 years old e-Cigarette/Vaping Use: Never Used Second Hand Smoke Exposure: No Advance Directives: No Advance Directives Information Provided: No Healthcare Proxy: No Guardian: No service: No Current occupational status: disabled Sexual orientation: Pt stated he identifies as LGBTQA Cognitive needs: No Hearing needs: No Vision needs: No Physical Exam Vital Signs: Vital Signs: Last Vital Signs Temp 97.4 F 02/14/22 13:58 Pulse 93 02/14/22 13:58 Resp 16 02/14/22 18:23 BP 111/85 02/14/22 13:58 Pulse Ox 97 02/14/22 13:58 O2 Del Method 02/14/22 18:23 BMI result Body Mass Index 32.1 vss Appearance: Alert.? Oriented X3.? No acute distress.? Speaking in 3rd person Head: Normocephalic, atraumatic, no step-offs or deformities Eyes: Pupils equal, round and reactive to light.? ENT: Pharynx normal.? Neck: Normal inspection.? Neck supple.? CVS: Normal heart rate and rhythm.? Pulses normal.? Respiratory: No respiratory distress.? Breath sounds normal.? Abdomen: Soft and nontender.? Skin: Skin warm and dry.? Normal skin color.? Normal skin turgor.? Extremities: No lower extremity edema.? No calf ttp. 5/5 strength to bilateral upper and lower extremities Back: No midline tenderness, no C-spine tenderness, full range of motion, no CVA tenderness bilaterally Neuro: Oriented X 3.? No motor deficit.? No sensory deficit. CN 2-12 intact Course Reevaluation(s) Reevaluation #1: CBC within normal limits. Chemistry with no acute findings. UA w/o findings. Urine toxicology negative, ethanol negative, valproic acid within normal limits. COVID negative. This time patient will be placed into physician observation to allow more time to be evaluated by the behavioral health team. At time observation was started patient common cooperative no acute distress will continue to monitor. Time: 20:42 MDM - Psych MDM Narrative Medical decision making narrative: [id number] 42-year-old male presents from [facility] housing with anxiety, frustration, vague complaints of HI for few weeks worsening, was recently inpatient however not getting better. Physical examination benign Plan at this time is medical clearance and evaluation by the behavioral health team Medical Records Attestation: I reviewed the patient's medical records. Lab Data Attestation: I reviewed the patient's lab results. Result diagrams: 02/14/22 16:28 02/14/22 16:28 Labs: Lab Results 02/14/22 02/14/22 02/14/22 Range/Units 16:17 16:17 16:17 WBC (4.8-10.8) X10*3/uL RBC (4.60-5.80) X10*6/uL Hgb (14.0-18.0) g/dl Hct (42.0-52.0) % MCV (80.0-98.0) fL MCH (27.0-33.0) pg MCHC (31.0-36.0) g/dl RDW (11.0-16.0) % Plt Count (160-400) X10*3/uL MPV (9.4-12.4) fL Immature Gran % (Auto) (0.0-0.4) % Neut % (Auto) (45-73) % Lymph % (Auto) (20-40) % [place] % (Auto) (2-11) % Eos % (Auto) (0-4) % Baso % (Auto) (0-2) % Lymph # (Auto) (1.2-4.9) X10*3/uL [place] # (Auto) (0.1-1.2) X10*3/uL Eos # (Auto) (0.0-0.4) X10*3/uL Baso # (Auto) (0.0-0.2) X10*3/uL Abs Immat Gran (auto) (0.00-0.03) X10*3/uL Absolute Neuts (auto) (2.0-8.3) x10*3/uL Absolute Nucleated RBC (0.0-0.012) X10*3/uL Nucleated RBC % (auto) (0.0-0.2) /100WBC Sodium (135-145) mmol/L Potassium (3.3-5.1) mmol/L Chloride (96-108) mmol/L Carbon Dioxide (22-29) mmol/L Anion Gap (12-20) BUN (9-16) mg/dL Creatinine (0.5-1.4) mg/dL Estim Creat Clear Calc Estimated GFR Random Glucose (60-115) mg/dL Calcium (8.4-10.2) mg/dL Urine Color Yellow Urine Appearance Clear Urine pH 7.0 (5.0-9.0) Ur Specific [place] >= 1.030 H (1.005-1.025) Urine Protein Negative (Neg-Trace) mg/dL Urine Glucose (UA) Negative (Negative) mg/dL Urine Ketones Trace (Negative) mg/dL Urine Blood Negative (Negative) Urine Nitrite Negative (Negative) Ur Leukocyte Esterase Trace H (Negative) Urine RBC 0-2 (0-2) /HPF Urine WBC 0-5 (0-5) /HPF Ur Squamous Epith Cells 0-2 (0-2) /HPF Urine Bacteria None Seen (None Seen) Hyaline Casts 0-2 (0-2) /LPF Urine Opiates Screen Not Detected (Not Detect) Urine Fentanyl Screen Not Detected (Not Detect) Ur Barbiturates Screen Not Detected (Not Detect) Valproic Acid (50.0-100.0) mcg/mL Ur Phencyclidine Scrn Not Detected (Not Detect) Ur Amphetamines Screen Not Detected (Not Detect) U Benzodiazepines Scrn Not Detected (Not Detect) Urine Cocaine Screen Not Detected (Not Detect) U Marijuana (THC) Screen Not Detected (Not Detect) Ethyl Alcohol mg/dL COVID-19 (NGOZI) Negative (Negative) COVID-19 Clin Com See Note 02/14/22 02/14/22 02/14/22 Range/Units 16:28 16:28 16:28 WBC 10.2 (4.8-10.8) X10*3/uL RBC 4.89 (4.60-5.80) X10*6/uL Hgb 15.0 (14.0-18.0) g/dl Hct 43.4 (42.0-52.0) % MCV 88.8 (80.0-98.0) fL MCH 30.7 (27.0-33.0) pg MCHC 34.6 (31.0-36.0) g/dl RDW 12.0 (11.0-16.0) % Plt Count 271 (160-400) X10*3/uL MPV 9.6 (9.4-12.4) fL Immature Gran % (Auto) 0.7 H (0.0-0.4) % Neut % (Auto) 55.6 (45-73) % Lymph % (Auto) 30.7 (20-40) % [place] % (Auto) 10.4 (2-11) % Eos % (Auto) 1.9 (0-4) % Baso % (Auto) 0.7 (0-2) % Lymph # (Auto) 3.1 (1.2-4.9) X10*3/uL [place] # (Auto) 1.1 (0.1-1.2) X10*3/uL Eos # (Auto) 0.2 (0.0-0.4) X10*3/uL Baso # (Auto) 0.1 (0.0-0.2) X10*3/uL Abs Immat Gran (auto) 0.07 H (0.00-0.03) X10*3/uL Absolute Neuts (auto) 5.7 (2.0-8.3) x10*3/uL Absolute Nucleated RBC 0.000 (0.0-0.012) X10*3/uL Nucleated RBC % (auto) 0.0 (0.0-0.2) /100WBC Sodium 141 (135-145) mmol/L Potassium 4.2 (3.3-5.1) mmol/L Chloride 102 (96-108) mmol/L Carbon Dioxide 29 (22-29) mmol/L Anion Gap 14 (12-20) BUN 15 (9-16) mg/dL Creatinine 0.95 (0.5-1.4) mg/dL Estim Creat Clear Calc 134.2 Estimated GFR > 60 Random Glucose 106 D (60-115) mg/dL Calcium 9.8 (8.4-10.2) mg/dL Urine Color Urine Appearance Urine pH (5.0-9.0) Ur Specific [place] (1.005-1.025) Urine Protein (Neg-Trace) mg/dL Urine Glucose (UA) (Negative) mg/dL Urine Ketones (Negative) mg/dL Urine Blood (Negative) Urine Nitrite (Negative) Ur Leukocyte Esterase (Negative) Urine RBC (0-2) /HPF Urine WBC (0-5) /HPF Ur Squamous Epith Cells (0-2) /HPF Urine Bacteria (None Seen) Hyaline Casts (0-2) /LPF Urine Opiates Screen (Not Detect) Urine Fentanyl Screen (Not Detect) Ur Barbiturates Screen (Not Detect) Valproic Acid (50.0-100.0) mcg/mL Ur Phencyclidine Scrn (Not Detect) Ur Amphetamines Screen (Not Detect) U Benzodiazepines Scrn (Not Detect) Urine Cocaine Screen (Not Detect) U Marijuana (THC) Screen (Not Detect) Ethyl Alcohol < 10 mg/dL COVID-19 (NGOZI) (Negative) COVID-19 Clin Com 02/14/22 Range/Units 18:19 WBC (4.8-10.8) X10*3/uL RBC (4.60-5.80) X10*6/uL Hgb (14.0-18.0) g/dl Hct (42.0-52.0) % MCV (80.0-98.0) fL MCH (27.0-33.0) pg MCHC (31.0-36.0) g/dl RDW (11.0-16.0) % Plt Count (160-400) X10*3/uL MPV (9.4-12.4) fL Immature Gran % (Auto) (0.0-0.4) % Neut % (Auto) (45-73) % Lymph % (Auto) (20-40) % [place] % (Auto) (2-11) % Eos % (Auto) (0-4) % Baso % (Auto) (0-2) % Lymph # (Auto) (1.2-4.9) X10*3/uL [place] # (Auto) (0.1-1.2) X10*3/uL Eos # (Auto) (0.0-0.4) X10*3/uL Baso # (Auto) (0.0-0.2) X10*3/uL Abs Immat Gran (auto) (0.00-0.03) X10*3/uL Absolute Neuts (auto) (2.0-8.3) x10*3/uL Absolute Nucleated RBC (0.0-0.012) X10*3/uL Nucleated RBC % (auto) (0.0-0.2) /100WBC Sodium (135-145) mmol/L Potassium (3.3-5.1) mmol/L Chloride (96-108) mmol/L Carbon Dioxide (22-29) mmol/L Anion Gap (12-20) BUN (9-16) mg/dL Creatinine (0.5-1.4) mg/dL Estim Creat Clear Calc Estimated GFR Random Glucose (60-115) mg/dL Calcium (8.4-10.2) mg/dL Urine Color Urine Appearance Urine pH (5.0-9.0) Ur Specific [place] (1.005-1.025) Urine Protein (Neg-Trace) mg/dL Urine Glucose (UA) (Negative) mg/dL Urine Ketones (Negative) mg/dL Urine Blood (Negative) Urine Nitrite (Negative) Ur Leukocyte Esterase (Negative) Urine RBC (0-2) /HPF Urine WBC (0-5) /HPF Ur Squamous Epith Cells (0-2) /HPF Urine Bacteria (None Seen) Hyaline Casts (0-2) /LPF Urine Opiates Screen (Not Detect) Urine Fentanyl Screen (Not Detect) Ur Barbiturates Screen (Not Detect) Valproic Acid 56.7 (50.0-100.0) mcg/mL Ur Phencyclidine Scrn (Not Detect) Ur Amphetamines Screen (Not Detect) U Benzodiazepines Scrn (Not Detect) Urine Cocaine Screen (Not Detect) U Marijuana (THC) Screen (Not Detect) Ethyl Alcohol mg/dL COVID-19 (NGOZI) (Negative) COVID-19 Clin Com Critical Care Time Critical Care Time Critical Care Time: No Discharge Plan Discharge Clinical Impression: OCD (obsessive compulsive disorder) Patient Disposition: Still a Patient Prescriptions: No Action risperidone 4 mg tablet 1 tab PO BEDTIME trazodone 150 mg tablet 1 tab PO BEDTIME vitamin E (dl, acetate) 180 mg (400 unit) capsule 400 unit PO DAILY melatonin 3 mg tablet 6 mg PO BEDTIME hydroxyzine HCl 25 mg tablet 1 tab PO TID PRN (Reason: Anxiety) memantine 10 mg tablet 1 tab PO BID fluticasone propionate 50 mcg/actuation spray,suspension 1 spray intranasal BID PRN (Reason: Nasal Congestion) risperidone 3 mg tablet 1 tab PO DAILY valproic acid (as sodium salt) 250 mg/5 mL (5 mL) Solution 1,250 mg PO BEDTIME 30 Days Qty: 750 0RF valproic acid (as sodium salt) 250 mg/5 mL (5 mL) Solution 1,000 mg PO DAILY 30 Days Qty: 600 0RF fluoxetine 40 mg capsule 80 mg PO DAILY
[2022-02-14 16:32] LABS: Appearance Urine Clear; Color Urine Yellow; Glucose Urine UA Negative (Negative); Leukocyte Esterase Urine Trace (Negative); Nitrite Urine Negative (Negative); Specific Gravity - Urine >= 1.030 (1.005-1.025); UMIC TRIGGER UACC YES; Urine Blood Negative (Negative); Urine Ketones Trace mg/dL (Negative); Urine Protein Negative (Neg-Trace)
[2022-02-14 16:37] LABS: MANUAL DIFF FLAG NO
[2022-02-14 16:38] LABS: Bacteria Urine None Seen (None Seen); Hyaline Casts Urine 0-2 /LPF (0-2); RBC Urine 0-2 /HPF (0-2); Squamous Epithelial Cell Urine 0-2 /HPF (0-2); WBC Urine 0-5 /HPF (0-5)
[2022-02-14 16:40] LABS: Basophils Absolute Auto 0.1 X10*3/uL (0.0-0.2); Basophils Percent Auto 0.7 % (0-2); Eosinophils Absolute Auto 0.2 X10*3/uL (0.0-0.4); Eosinophils Percent Auto 1.9 % (0-4); Hematocrit 43.4 % (42.0-52.0); Imm Gran Abs Auto 0.07 X10*3/uL (0.00-0.03); Imm Gran Pct Auto 0.7 % (0.0-0.4); Lymphocytes Absolute Auto 3.1 X10*3/uL (1.2-4.9); Lymphocytes Percent Auto 30.7 % (20-40); Mean Corpuscular HGB Conc 34.6 g/dl (31.0-36.0); Mean Corpuscular Hemoglobin 30.7 pg (27.0-33.0); Mean Corpuscular Volume 88.8 fL (80.0-98.0); Mean Platelet Volume 9.6 fL (9.4-12.4); Monocytes Absolute Auto 1.1 X10*3/uL (0.1-1.2); Monocytes Percent Auto 10.4 % (2-11); Neutrophils Absolute Auto 5.7 x10*3/uL (2.0-8.3); Neutrophils Percent Auto 55.6 % (45-73); Platelet Count 271 X10*3/uL (160-400); Red Blood Count 4.89 X10*6/uL (4.60-5.80); White Blood Count 10.2 X10*3/uL (4.8-10.8)
[2022-02-14 16:43] LABS: COVID-19 Test Negative (Negative)
[2022-02-14 16:45] LABS: Amphetamine Screen Urine Not Detected (Not Detect); Barbiturates, Urine Not Detected (Not Detect); Benzodiazepines Screen Urine Not Detected (Not Detect); Cannabinoid Screen Urine Not Detected (Not Detect); Cocaine Screen Urine Not Detected (Not Detect); Fentanyl, urine Not Detected (Not Detect); Opiate Screen Urine Not Detected (Not Detect); Phencyclidine Screen Urine Not Detected (Not Detect)
[2022-02-14 16:56] LABS: Ethanol < 10 mg/dL
[2022-02-14 16:59] LABS: Anion Gap 14 (12-20); Blood Urea Nitrogen 15 mg/dL (9-16); Calcium 9.8 mg/dL (8.4-10.2); Carbon Dioxide 29 mmol/L (22-29); Chloride 102 mmol/L (96-108); Creatinine Clr Calc Pharmacy 134.2; Estimated Glomerular Filt Rate > 60; Glucose Random 106 mg/dL (60-115); Potassium 4.2 mmol/L (3.3-5.1); Sodium 141 mmol/L (135-145)
--- NOTE | 2022-02-14 17:41 | PC.NURSE ---
smart sheet done
[2022-02-14 18:23] VITALS: RESP 16
[2022-02-14 18:51] LABS: Valproate 56.7 mcg/mL (50.0-100.0)
--- NOTE | 2022-02-14 19:58 | PHA.MEDREC ---
Pharmacy Consult ? Medication Reconciliation RN has completed the medication reconciliation, pharmacy reviewed.
--- NOTE | 2022-02-14 20:02 | MHC.CARE ---
Pt was evaluated by the CARE Team and is an inpatient admission.
[2022-02-14] MEDS: traZODone HCL 50 MG TABLET 150 MG PO (22:58)
[2022-02-14] MEDS: Melatonin 3 MG TABLET 6 MG PO (22:58)
[2022-02-14] MEDS: Memantine HCl 10 MG TABLET PO (22:58)
[2022-02-14] MEDS: risperiDONE 2 MG TABLET 4 MG PO (22:58)
[2022-02-14 23:04] VITALS: BP 131/96; PULSE 87; RESP 17; TEMP 36.4; O2SAT 95
--- NOTE | 2022-02-15 06:35 | PC.NURSE ---
Patient slept through the night, no distress observed/reported, medication compliant, behavior non concerning, patient is admitted to M3 but did not get transferred on time due to delay in M3 admission process, when M3 was ready patient was medicated and I was sleeping, patient will be transferred to M3 in the morning, will continue to monitor.
--- NOTE | 2022-02-15 07:28 | PC.NURSE ---
Report recieved, pt currently sleeping respirations even and unlabord. PT to be admitted to M3 this morning.
[2022-02-15] MEDS: Memantine HCl 10 MG TABLET PO ×2 (09:18→20:19)
[2022-02-15] MEDS: FLUoxetine HCl 20 MG CAPSULE 80 MG PO (09:18)
[2022-02-15] MEDS: risperiDONE 3 MG TABLET PO (09:18)
[2022-02-15 09:35] VITALS: RESP 16
[2022-02-15 11:25] VITALS: BP 133/79; PULSE 81; RESP 18; TEMP 36.7; O2SAT 94
--- NOTE | 2022-02-15 11:26 | PC.NURSE ---
Pt arrived to unit at 11:17 am.
--- NOTE | 2022-02-15 12:25 | PC.ADMIT ---
Patient is a 41 y/o honduran speaking male admitted to the unit at 1130 from the pod. Pt signed in on a CV , diagnosed with Intermittent Explosive D/O, Turrets, and OCD.Pt deniesw all medical issues. Pt was discharged from M3 on 02/13 and presented back at the ED reporting he was out of control and needed higher Depakote medication. Pt was clinching fist and pounding them on the table in the ED , stating, I get so angry! Pt presented with an irritable affect and a angry mood. Pt was A&Ox4. Pt refused AH/VH/SI/HI sx.[facility] reports an extensive hx of aggression and sexually inappropriate behaviors. Pt was anxious throughout admission and asked to leave midway through, stating, I feel trapped in here . Pt says, I need more depakote, I can't think straight , I'm all over the place. Pt was pacing around the room during admission, unable to sit. Pt was cooperative, but kept referring T/W to just look at his old paperwork. Pt had an anxious affect and mood. Pt made sexual references to a state that looks like a penis , and when asked about a relationship he referred to woman as I wish I had a bitch . Pt took redirection without difficulty. Pt was insistent that he get the female doctor , not the male doctor. Patient placed on 15 minute checks.
--- NOTE | 2022-02-15 12:44 | HO.PSYADMNOT ---
HPI Date of Service: 02/15/22 Chief Complaint: OCD; Mood Liability; HI; Hx of Delusional Sx HPI Narrative: pt presented to [facility] for eval stating he was having strong urges to smash things, believing his VPA dosage had not been increased enough. he was noted to repeatedly bang his clenched fists on the table and repeat, i just get so angry. he was readmitted to , from whence he discharged earlier this week after having undergone a switch from VPA tablet to liquid formulation. his dosage had been increased by 500 mg during that stay, and he had been demanding it be increased by 1000 mg daily. on interview with MD, pt stated MD was not his doctor and he wanted the other provider who works on the unit (who is a female and who has noted poor boundaries with regard to this patient's behavior toward her). pt was informed i would be his doctor, which frustrated and upset him, causing him shortly to quit the interview room. Past Psychiatric History: Inpatient: last admisisons [facility] February 2022, May 2021. OP: [facility] Dr. Jack Nguyen Suicide attempts: none HIB: h/o pulling hair of [facility] staff and squeezing arm of [facility] staff sufficiently so as to bruise it. Past trials: depakote, risperidone, namenda Medical Evaluation Reviewed: Yes [facility] Medical History Anal fistula Anxiety and depression Obsessive compulsive disorder Screening for diabetes mellitus Screening for hyperlipidemia Surgical History No pertinent past surgical history Family History: unknown- pt did not know Social History: lives in . Close to both parents, no children of his own not . Substance History: denies use Trauma History: denies Diagnostics Vital Signs (24Hr): Vital Signs - 24 hr 02/14/22 13:58 02/14/22 18:23 02/14/22 23:04 Temperature 97.4 F 97.5 F Pulse Rate 93 87 Respiratory Rate 20 16 17 Blood Pressure 111/85 131/96 H Pulse Oximetry 97 95 Oxygen Delivery Method Room Air Room Air Room Air 02/15/22 09:35 02/15/22 11:25 Temperature 98.1 F Pulse Rate 81 Respiratory Rate 16 18 Blood Pressure 133/79 Pulse Oximetry 94 Oxygen Delivery Method Room Air BMI result Body Mass Index 32.1 Labs Results: 02/14/22 16:28 02/14/22 16:28 Labs: Laboratory Results - last 48 hr 02/14/22 02/14/22 02/14/22 16:17 16:17 16:17 WBC RBC Hgb Hct MCV MCH MCHC RDW Plt Count MPV Immature Gran % (Auto) Neut % (Auto) Lymph % (Auto) [place] % (Auto) Eos % (Auto) Baso % (Auto) Lymph # (Auto) [place] # (Auto) Eos # (Auto) Baso # (Auto) Abs Immat Gran (auto) Absolute Neuts (auto) Absolute Nucleated RBC Nucleated RBC % (auto) Sodium Potassium Chloride Carbon Dioxide Anion Gap BUN Creatinine Estim Creat Clear Calc Estimated GFR Random Glucose Calcium Urine Color Yellow Urine Appearance Clear Urine pH 7.0 Ur Specific [place] >= 1.030 H Urine Protein Negative Urine Glucose (UA) Negative Urine Ketones Trace Urine Blood Negative Urine Nitrite Negative Ur Leukocyte Esterase Trace H Urine RBC 0-2 Urine WBC 0-5 Ur Squamous Epith Cells 0-2 Urine Bacteria None Seen Hyaline Casts 0-2 Urine Opiates Screen Not Detected Urine Fentanyl Screen Not Detected Ur Barbiturates Screen Not Detected Valproic Acid Ur Phencyclidine Scrn Not Detected Ur Amphetamines Screen Not Detected U Benzodiazepines Scrn Not Detected Urine Cocaine Screen Not Detected U Marijuana (THC) Screen Not Detected Ethyl Alcohol COVID-19 (NGOZI) Negative COVID-19 Clin Com See Note 02/14/22 02/14/22 02/14/22 16:28 16:28 16:28 WBC 10.2 RBC 4.89 Hgb 15.0 Hct 43.4 MCV 88.8 MCH 30.7 MCHC 34.6 RDW 12.0 Plt Count 271 MPV 9.6 Immature Gran % (Auto) 0.7 H Neut % (Auto) 55.6 Lymph % (Auto) 30.7 [place] % (Auto) 10.4 Eos % (Auto) 1.9 Baso % (Auto) 0.7 Lymph # (Auto) 3.1 [place] # (Auto) 1.1 Eos # (Auto) 0.2 Baso # (Auto) 0.1 Abs Immat Gran (auto) 0.07 H Absolute Neuts (auto) 5.7 Absolute Nucleated RBC 0.000 Nucleated RBC % (auto) 0.0 Sodium 141 Potassium 4.2 Chloride 102 Carbon Dioxide 29 Anion Gap 14 BUN 15 Creatinine 0.95 Estim Creat Clear Calc 134.2 Estimated GFR > 60 Random Glucose 106 D Calcium 9.8 Urine Color Urine Appearance Urine pH Ur Specific [place] Urine Protein Urine Glucose (UA) Urine Ketones Urine Blood Urine Nitrite Ur Leukocyte Esterase Urine RBC Urine WBC Ur Squamous Epith Cells Urine Bacteria Hyaline Casts Urine Opiates Screen Urine Fentanyl Screen Ur Barbiturates Screen Valproic Acid Ur Phencyclidine Scrn Ur Amphetamines Screen U Benzodiazepines Scrn Urine Cocaine Screen U Marijuana (THC) Screen Ethyl Alcohol < 10 COVID-19 (NGOZI) COVID-19 [facility] Com 02/14/22 18:19 WBC RBC Hgb Hct MCV MCH MCHC RDW Plt Count MPV Immature Gran % (Auto) Neut % (Auto) Lymph % (Auto) [place] % (Auto) Eos % (Auto) Baso % (Auto) Lymph # (Auto) [place] # (Auto) Eos # (Auto) Baso # (Auto) Abs Immat Gran (auto) Absolute Neuts (auto) Absolute Nucleated RBC Nucleated RBC % (auto) Sodium Potassium Chloride Carbon Dioxide Anion Gap BUN Creatinine Estim Creat Clear Calc Estimated GFR Random Glucose Calcium Urine Color Urine Appearance Urine pH Ur Specific [place] Urine Protein Urine Glucose (UA) Urine Ketones Urine Blood Urine Nitrite Ur Leukocyte Esterase Urine RBC Urine WBC Ur Squamous Epith Cells Urine Bacteria Hyaline Casts Urine Opiates Screen Urine Fentanyl Screen Ur Barbiturates Screen Valproic Acid 56.7 Ur Phencyclidine Scrn Ur Amphetamines Screen U Benzodiazepines Scrn Urine Cocaine Screen U Marijuana (THC) Screen Ethyl Alcohol COVID-19 (NGOZI) COVID-19 [facility] Com Meds/Allergies Meds Home Medications Medication Instructions Recorded Confirmed Type fluticasone propionate 50 1 spray intranasal BID PRN Nasal 10/26/21 02/14/22 History mcg/actuation nasal Congestion spray,suspension hydroxyzine HCl 25 mg tablet 1 tab PO TID PRN Anxiety 10/26/21 02/14/22 History melatonin 3 mg tablet 6 mg PO BEDTIME 10/26/21 02/14/22 History memantine 10 mg tablet 1 tab PO BID 10/26/21 02/14/22 History risperidone 4 mg tablet 1 tab PO BEDTIME 10/26/21 02/14/22 History trazodone 150 mg tablet 1 tab PO BEDTIME 10/26/21 02/14/22 History vitamin E (dl, acetate) 180 mg 400 unit PO DAILY 10/26/21 02/14/22 History (400 unit) capsule risperidone 3 mg tablet 1 tab PO DAILY 02/03/22 02/14/22 History fluoxetine 40 mg capsule 80 mg PO DAILY 02/14/22 02/14/22 History Allergies Allergies Allergy/AdvReac Type Severity Reaction Status Date / Time No Known Allergies Allergy Verified 02/01/22 11:26 Mental Status Exam Mental Status Exam Narrative: A&O. unkempt appearance, disheveled. fair eye contact, attentive. No Tics or Tremors. Activated, not cooperative, engaged. Non-pressured speech, spontaneous with regular rate, normal prosody, increased amount and loudness. No prolonged speech latency or dysarthria. word-finding difficulties due to expressive aphasia. affect is hyper-intense, mod-labile. no SI/HI/AVH expressed. Insight/ Judgment limited but adequate. 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 increase dosing by another 500 mg today, to 2750 daily (split 1250 daily and 1500 QHS). otherwise continue previous regimen. Patient educated on: therapeutic strategies Reason for continued inpatient stay Substantial Risk for: harm to others, inability to function and rapid decompensation
[2022-02-15] MEDS: hydrOXYzine HCL 25 MG TABLET PO (14:10)
[2022-02-15] MEDS: risperiDONE 2 MG TABLET 4 MG PO (20:18)
[2022-02-15] MEDS: Melatonin 3 MG TABLET 6 MG PO (20:18)
[2022-02-15] MEDS: traZODone HCL 50 MG TABLET 150 MG PO (20:18)
[2022-02-15 20:36] VITALS: RESP 14
[2022-02-16 06:00] VITALS: RESP 15; TEMP 36.3
[2022-02-16] MEDS: FLUoxetine HCl 20 MG CAPSULE 80 MG PO (10:19)
[2022-02-16] MEDS: Vitamin E (Dl,Tocopheryl Acet) 180 MG (400 UNIT) CAPSULE PO (10:20)
[2022-02-16] MEDS: risperiDONE 3 MG TABLET PO (10:20)
[2022-02-16] MEDS: Memantine HCl 10 MG TABLET PO ×2 (10:20→20:07)
--- NOTE | 2022-02-16 10:25 | HO.PSYCHPN ---
Subjective Subjective Date of Service: 02/16/22 Reason For Visit: OCD; Mood Liability; HI; Hx of Delusional Sx Interim History: Great interest in rapid titration of Depakote. Review of dosing, recent increases, precautions. It is the only thing that helps. Well engaged in discussion with several appropriate medication questions. Medication Compliance: Yes Side effects from medications: No Attending Groups: Yes Review of Systems Acute medical concerns: No Medical Review of Systems: unchanged Mental Status Exam Mental Status Exam Narrative: A&O. unkempt appearance, disheveled. fair eye contact, attentive. No Tics or Tremors. Activated, not cooperative, engaged. Non-pressured speech, spontaneous with regular rate, normal prosody, increased amount and loudness. No prolonged speech latency or dysarthria. word-finding difficulties due to expressive aphasia. affect is hyper-intense, mod-labile. no SI/HI/AVH expressed. Insight/ Judgment limited but adequate. Patient Appearance: Disheveled Patient Orientation: Person, Place and Situation Level of Consciousness: Alert Patient Behavior: Talkative, Distractible and Good Eye Contact Mood Description: Labile Affect Description: Labile Patient Cognition Impaired: Yes Ability to Follow Directions: Good Speech Pattern: Spontaneous Speech Memory Description: Episodic Impaired Hallucinations: None Thought Content: positive for [place] and positive for Circumstantial Abnormal Motor Activity Signs and Symptoms: Restlessness Judgement: Fair Diagnostics Vital Signs (24Hr): Vital Signs - 24 hr 02/15/22 11:25 02/15/22 20:36 02/16/22 06:00 Temperature 98.1 F 97.3 F Pulse Rate 81 Respiratory Rate 18 14 15 Blood Pressure 133/79 Pulse Oximetry 94 Oxygen Delivery Method Room Air BMI result Body Mass Index 32.1 Labs Results: 02/14/22 16:28 02/14/22 16:28 Labs: Laboratory Results - last 48 hr 02/14/22 02/14/22 02/14/22 16:17 16:17 16:17 WBC RBC Hgb Hct MCV MCH MCHC RDW Plt Count MPV Immature Gran % (Auto) Neut % (Auto) Lymph % (Auto) [place] % (Auto) Eos % (Auto) Baso % (Auto) Lymph # (Auto) [place] # (Auto) Eos # (Auto) Baso # (Auto) Abs Immat Gran (auto) Absolute Neuts (auto) Absolute Nucleated RBC Nucleated RBC % (auto) Sodium Potassium Chloride Carbon Dioxide Anion Gap BUN Creatinine Estim Creat Clear Calc Estimated GFR Random Glucose Calcium Urine Color Yellow Urine Appearance Clear Urine pH 7.0 Ur Specific [place] >= 1.030 H Urine Protein Negative Urine Glucose (UA) Negative Urine Ketones Trace Urine Blood Negative Urine Nitrite Negative Ur Leukocyte Esterase Trace H Urine RBC 0-2 Urine WBC 0-5 Ur Squamous Epith Cells 0-2 Urine Bacteria None Seen Hyaline Casts 0-2 Urine Opiates Screen Not Detected Urine Fentanyl Screen Not Detected Ur Barbiturates Screen Not Detected Valproic Acid Ur Phencyclidine Scrn Not Detected Ur Amphetamines Screen Not Detected U Benzodiazepines Scrn Not Detected Urine Cocaine Screen Not Detected U Marijuana (THC) Screen Not Detected Ethyl Alcohol COVID-19 (NGOZI) Negative COVID-Physiq See Note 02/14/22 02/14/22 02/14/22 16:28 16:28 16:28 WBC 10.2 RBC 4.89 Hgb 15.0 Hct 43.4 MCV 88.8 MCH 30.7 MCHC 34.6 RDW 12.0 Plt Count 271 MPV 9.6 Immature Gran % (Auto) 0.7 H Neut % (Auto) 55.6 Lymph % (Auto) 30.7 [place] % (Auto) 10.4 Eos % (Auto) 1.9 Baso % (Auto) 0.7 Lymph # (Auto) 3.1 [place] # (Auto) 1.1 Eos # (Auto) 0.2 Baso # (Auto) 0.1 Abs Immat Gran (auto) 0.07 H Absolute Neuts (auto) 5.7 Absolute Nucleated RBC 0.000 Nucleated RBC % (auto) 0.0 Sodium 141 Potassium 4.2 Chloride 102 Carbon Dioxide 29 Anion Gap 14 BUN 15 Creatinine 0.95 Estim Creat Clear Calc 134.2 Estimated GFR > 60 Random Glucose 106 D Calcium 9.8 Urine Color Urine Appearance Urine pH Ur Specific [place] Urine Protein Urine Glucose (UA) Urine Ketones Urine Blood Urine Nitrite Ur Leukocyte Esterase Urine RBC Urine WBC Ur Squamous Epith Cells Urine Bacteria Hyaline Casts Urine Opiates Screen Urine Fentanyl Screen Ur Barbiturates Screen Valproic Acid Ur Phencyclidine Scrn Ur Amphetamines Screen U Benzodiazepines Scrn Urine Cocaine Screen U Marijuana (THC) Screen Ethyl Alcohol < 10 COVID-19 (NGOZI) COVID-19 Endo[employer] 02/14/22 18:19 WBC RBC Hgb Hct MCV MCH MCHC RDW Plt Count MPV Immature Gran % (Auto) Neut % (Auto) Lymph % (Auto) [place] % (Auto) Eos % (Auto) Baso % (Auto) Lymph # (Auto) [place] # (Auto) Eos # (Auto) Baso # (Auto) Abs Immat Gran (auto) Absolute Neuts (auto) Absolute Nucleated RBC Nucleated RBC % (auto) Sodium Potassium Chloride Carbon Dioxide Anion Gap BUN Creatinine Estim Creat Clear Calc Estimated GFR Random Glucose Calcium Urine Color Urine Appearance Urine pH Ur Specific [place] Urine Protein Urine Glucose (UA) Urine Ketones Urine Blood Urine Nitrite Ur Leukocyte Esterase Urine RBC Urine WBC Ur Squamous Epith Cells Urine Bacteria Hyaline Casts Urine Opiates Screen Urine Fentanyl Screen Ur Barbiturates Screen Valproic Acid 56.7 Ur Phencyclidine Scrn Ur Amphetamines Screen U Benzodiazepines Scrn Urine Cocaine Screen U Marijuana (THC) Screen Ethyl Alcohol COVID-19 (NGOZI) COVID-19 Clin Com Medications Medications Current Medications Acetaminophen (Acetaminophen 325 Mg Tablet) 650 mg PO Q6H PRN PRN Reason: Headache/Pain Mild Scale (1-3) Al Hydroxide/Mg Hydroxide (Magnesium Hydrox/Alum Hydrox 30 Ml Oral.Susp) 30 ml PO Q6H PRN PRN Reason: Heartburn/Nausea Fluoxetine HCl (Fluoxetine Hcl 20 Mg Capsule) 80 mg PO DAILY [facility] Last Admin: 02/16/22 10:19 Dose: 80 mg Fluticasone Propionate (Fluticasone Propionate Nasal 16 Gm [place]) 1 spray NOSTRIL-B BID PRN PRN Reason: Nasal Congestion Hydroxyzine HCl (Hydroxyzine Hcl 25 Mg Tablet) 25 mg PO TID PRN PRN Reason: Anxiety Last Admin: 02/15/22 14:10 Dose: 25 mg Magnesium Hydroxide (Milk Of Magnesia 30 Ml Oral.Susp) 30 ml PO DAILY PRN PRN Reason: Constipation Melatonin (Melatonin 3 Mg Tablet) 6 mg PO BEDTIME [facility] Last Admin: 02/15/22 20:18 Dose: 6 mg Memantine (Memantine Hcl 10 Mg Tablet) 10 mg PO BID [facility] Last Admin: 02/16/22 10:20 Dose: 10 mg Pharmacy Consult (Consult Rx Perform Med Rec) 1 each MISCELLANE ONCE PRN PRN Reason: Consult order Risperidone (Risperidone 3 Mg Tablet) 3 mg PO DAILY [facility] Last Admin: 10/08/22 10:20 Dose: 3 mg Risperidone (Risperidone 2 Mg Tablet) 4 mg PO BEDTIME [facility] Last Admin: 02/15/22 20:18 Dose: 4 mg Trazodone HCl (Trazodone Hcl 50 Mg Tablet) 150 mg PO BEDTIME [facility] Last Admin: 02/15/22 20:18 Dose: 150 mg Valproic Acid (Valproic Acid (As Sodium Salt) 250 Mg/5 Ml Solution) 1,250 mg PO DAILY [facility] Last Admin: 02/16/22 10:20 Dose: 1,250 mg Valproic Acid (Valproic Acid (As Sodium Salt) 250 Mg/5 Ml Solution) 1,500 mg PO BEDTIME [facility] Last Admin: 02/15/22 20:18 Dose: 1,500 mg Vitamin E (Vitamin E (Dl,Tocopheryl Acet) 180 Mg (400 Unit) Capsule) 180 mg PO DAILY [facility] Last Admin: 02/16/22 10:20 Dose: 180 mg Allergies Allergies Allergy/AdvReac Type Severity Reaction Status Date / Time No Known Allergies Allergy Verified 02/01/22 11:26 Assessment & Plan Assessment & Plan (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 increase dosing by another 500 mg today, to 2750 daily (split 1250 daily and 1500 QHS). otherwise continue previous regimen. 02/16/22- Continue current plan. I spent minutes with the patient and/or on the patient floor today, greater than?50% of which was spent counseling/coordinating care. Patient educated on: medication risk/benefits Informed Consent: further education needed Reason for contiued inpatient stay Substantial Risk for: harm to self, harm to others, inability to function and rapid decompensation
[2022-02-16 19:45] VITALS: BP 130/100; PULSE 94; RESP 16; TEMP 36.6; O2SAT 96
[2022-02-16] MEDS: risperiDONE 2 MG TABLET 4 MG PO (20:07)
[2022-02-16] MEDS: traZODone HCL 50 MG TABLET 150 MG PO (20:07)
[2022-02-16] MEDS: Melatonin 3 MG TABLET 6 MG PO (20:07)
--- NOTE | 2022-02-16 22:47 | PC.NURSE ---
??Upon first conversation with pt, he required redirection for inappropriate touching. He also continues to request elbow bumps from various staff members.? ??Pt was A&O, INAD, cooperative with VS assessment but insistent on how assessment would be completed, stating all his quirky requests are because of OCD. He wanted to see the VS screen when readings were being done, and the machine was placed so he could see it; insisted on the size of the BP cuff that would be used; stated he wants his medications first when the time comes.? ??During medication administration in his room, pt pretended to be his stuffed monkey toy making nonsensical comments. He requested ?gingy? to take his depakote liquid with, stating he needs it for the taste, then refused to take his other medication with water. He was encouraged to obtain the gingerale from the kitchenette and he responded he is not allowed in that room. No staff were aware he has restricted access to the kitchenette. When the gingerale was placed on his desk, he whined ?Mommy,? stating he couldn?t reach it from his bed, insisting the nurse had to crop picker the gingerale and meet him part way. After taking the pills, he tossed the medication cup onto the WOW. ??During MS assessment, pt initially answered questions appropriately then made bizarre statements and gestures instead of answering. He denies safety concerns/SI/HI, but responded to further assessment with nonsensical comments/gestures.
[2022-02-17] MEDS: FLUoxetine HCl 20 MG CAPSULE 80 MG PO (09:37)
[2022-02-17] MEDS: Memantine HCl 10 MG TABLET PO ×2 (09:38→20:00)
[2022-02-17] MEDS: Vitamin E (Dl,Tocopheryl Acet) 180 MG (400 UNIT) CAPSULE PO (09:38)
[2022-02-17] MEDS: risperiDONE 3 MG TABLET PO (09:38)
--- NOTE | 2022-02-17 16:53 | HO.PSYCHPN ---
Subjective Subjective Date of Service: 02/17/22 Reason For Visit: OCD; Mood Liability; HI; Hx of Delusional Sx Interim History: Isolative within milieu. Very engaged in our meeting. Several appropriate questions regarding medications and appropriateness of medications. Agreed to labs on 02/19-Valproate/CBCD. Discussed dosing/SE/Mgt of levels. Reports being a bit tired today, anergic. Discussed this in terms of metabolism. Medication Compliance: Yes Side effects from medications: Yes (anergy) Attending Groups: Intermittent Review of Systems Medical Review of Systems: unchanged Mental Status Exam Mental Status Exam Patient Appearance: Disheveled Patient Orientation: Person, Place and Situation Level of Consciousness: Alert Patient Behavior: Talkative, Distractible and Good Eye Contact Mood Description: Labile Affect Description: Labile Patient Cognition Impaired: Yes Ability to Follow Directions: Good Speech Pattern: Spontaneous Speech (aphasia) Memory Description: Episodic Impaired Hallucinations: None Thought Content: positive for [place] and positive for Circumstantial Abnormal Motor Activity Signs and Symptoms: Restlessness Judgement: Fair Diagnostics Vital Signs (24Hr): Vital Signs - 24 hr 02/16/22 19:45 Temperature 97.8 F Pulse Rate 94 Respiratory Rate 16 Blood Pressure 130/100 H Pulse Oximetry 96 Oxygen Delivery Method Room Air BMI result Body Mass Index 32.1 Labs Results: 02/14/22 16:28 02/14/22 16:28 Medications Medications Current Medications Acetaminophen (Acetaminophen 325 Mg Tablet) 650 mg PO Q6H PRN PRN Reason: Headache/Pain Mild Scale (1-3) Al Hydroxide/Mg Hydroxide (Magnesium Hydrox/Alum Hydrox 30 Ml Oral.Susp) 30 ml PO Q6H PRN PRN Reason: Heartburn/Nausea Fluoxetine HCl (Fluoxetine Hcl 20 Mg Capsule) 80 mg PO DAILY [facility] Last Admin: 02/17/22 09:37 Dose: 80 mg Fluticasone Propionate (Fluticasone Propionate Nasal 16 Gm [place]) 1 spray NOSTRIL-B BID PRN PRN Reason: Nasal Congestion Hydroxyzine HCl (Hydroxyzine Hcl 25 Mg Tablet) 25 mg PO TID PRN PRN Reason: Anxiety Last Admin: 02/15/22 14:10 Dose: 25 mg Magnesium Hydroxide (Milk Of Magnesia 30 Ml Oral.Susp) 30 ml PO DAILY PRN PRN Reason: Constipation Melatonin (Melatonin 3 Mg Tablet) 6 mg PO BEDTIME [facility] Last Admin: 02/16/22 20:07 Dose: 6 mg Memantine (Memantine Hcl 10 Mg Tablet) 10 mg PO BID [facility] Last Admin: 02/17/22 09:38 Dose: 10 mg Pharmacy Consult (Consult Rx Perform Med Rec) 1 each MISCELLANE ONCE PRN PRN Reason: Consult order Risperidone (Risperidone 3 Mg Tablet) 3 mg PO DAILY [facility] Last Admin: 02/17/22 09:38 Dose: 3 mg Risperidone (Risperidone 2 Mg Tablet) 4 mg PO BEDTIME [facility] Last Admin: 02/16/22 20:07 Dose: 4 mg Trazodone HCl (Trazodone Hcl 50 Mg Tablet) 150 mg PO BEDTIME [facility] Last Admin: 02/16/22 20:07 Dose: 150 mg Valproic Acid (Valproic Acid (As Sodium Salt) 250 Mg/5 Ml Solution) 1,250 mg PO DAILY [facility] Last Admin: 02/17/22 09:37 Dose: 1,250 mg Valproic Acid (Valproic Acid (As Sodium Salt) 250 Mg/5 Ml Solution) 1,500 mg PO BEDTIME [facility] Last Admin: 02/16/22 20:09 Dose: 1,500 mg Vitamin E (Vitamin E (Dl,Tocopheryl Acet) 180 Mg (400 Unit) Capsule) 180 mg PO DAILY [facility] Last Admin: 02/17/22 09:38 Dose: 180 mg Allergies Allergies Allergy/AdvReac Type Severity Reaction Status Date / Time No Known Allergies Allergy Verified 02/01/22 11:26 Assessment & Plan Assessment & Plan (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 increase dosing by another 500 mg today, to 2750 daily (split 1250 daily and 1500 QHS). otherwise continue previous regimen. 02/16/22- Continue current plan. 02/17/22-Labs 02/19/22, Valproate, CBCD I spent minutes with the patient and/or on the patient floor today, greater than?50% of which was spent counseling/coordinating care. Patient educated on: medication risk/benefits Informed Consent: understands and further education needed Reason for contiued inpatient stay Substantial Risk for: inability to function and rapid decompensation
[2022-02-17] MEDS: traZODone HCL 50 MG TABLET 150 MG PO (20:00)
[2022-02-17] MEDS: risperiDONE 2 MG TABLET 4 MG PO (20:00)
[2022-02-17] MEDS: Melatonin 3 MG TABLET 6 MG PO (20:00)
[2022-02-17 20:01] VITALS: BP 129/68; PULSE 83; O2SAT 96
[2022-02-18 06:00] VITALS: RESP 18
[2022-02-18] MEDS: Memantine HCl 10 MG TABLET PO ×2 (09:17→20:30)
[2022-02-18] MEDS: risperiDONE 3 MG TABLET PO (09:17)
[2022-02-18] MEDS: Vitamin E (Dl,Tocopheryl Acet) 180 MG (400 UNIT) CAPSULE PO (09:17)
[2022-02-18] MEDS: FLUoxetine HCl 20 MG CAPSULE 80 MG PO (09:17)
--- NOTE | 2022-02-18 12:27 | MHC.AU.AEV ---
Adult Audiological Evaluation Date of Visit: Varnish Melter Helper Used: Reason for Appointment: Does patient feel they have a hearing loss?: If Yes, Which Ear?: When Was Hearing Difficulty First Noticed?: Has hearing been tested previously?: Previous Hearing Test Results: Hearing Handicap Inventory Does a hearing problem cause you to feel embarrassed when meeting new people?: Does a hearing problem cause you to feel frustrated when talking to members of your family?: Do you have difficulty when someone speaks in a whisper?: Do you feel handicapped by a hearing problem?: Does a hearing problem cause you difficulty when visiting friends, relatives, or neighbors?: Does a hearing problem cause you to attend anabaptist service services less often than you would like?: Does a hearing problem cause you to have arguments with family members?: Does a hearing problem cause you difficulty when listening to TV or radio?: Do you feel that any difficult with your hearing limits or hampers your personal or social life?: Does a hearing problem cause you difficulty when in a restaurants with relatives or friends?: HHIE SCORE: Based on HHIE score, patient has: Ear History: Ear Deformity: Recent Ear Drainage: Recent Ear Pain: Family History of Hearing Loss?: Recent Ear Infections: Ear Infections in Childhood: History of Ear Wax Buildup: Previous Ear Surgery: Bothersome Tinnitus/Ringing/Noises in Ears: Ear used on the phone: Blocked/Full Sensation in Ear(s): History of occupational noise exposure?: History: Medical History: Medical History: Medical History: Allergies: Medication List: Hearing Instrument History- Right Ear: 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 Technician: Model: Serial Number: Battery Size: Repair Warranty: Loss and Damage Warranty: Service Plan: Dispensed By: Date of Fitting: Hearing Instrument History- Left Ear: 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 Technician: Model: Serial Number: Battery Size: Warranty: Loss and Damage Warranty: Service Plan: Dispensed By: Date of Fitting: Otoscopy: Right Ear: Left Ear: Tympanometry: Tympanometry performed due to: Right Ear: Left Ear: Acoustic Reflexes: Ipsilateral Probe Right: 500 Hz: 1000 Hz: 2000 Hz: 4000 Hz: Probe Left: 500 Hz: 1000 Hz: 2000 Hz: 4000 Hz: Contralateral Probe Right: 500 Hz: 1000 Hz: 2000 Hz: 4000 Hz: Probe Left: 500 Hz: 1000 Hz: 2000 Hz: 4000 Hz: Screening Ipsilateral Reflex Probe Right Ear: Probe Left Ear: Acoustic Reflex Decay Right Ear: Left Ear: Otoacoustic Emissions Frequency Range Used: Right Ear Results: Analysis: Left Ear Results: Analysis: Hearing Evaluation: Transducer(s) Used: Method: Stimuli Used: Right Ear: Description of Hearing: Left Ear: Description of Hearing: Soundfield (At Least the Better Ear): Description of Hearing: High Frequency Audiometry: High Frequency Audiometry: Speech Awareness Threshold (SAT): Right Ear: Left Ear: Soundfield: Speech Recognition Threshold (SRT): Method Used: Stimuli Used: Right Ear: Left Ear: Soundfield: Word Discrimination: Method: Word Lists Used:: Right Ear: Left Ear: Soundfield: Most Comfortable Level (MCL): Right Ear: Left Ear: Soundfield: Uncomfortable Loudness Level (UCL): Right Ear: Left Ear: Soundfield: QuickSIN: BKB-SIN: Aided Testing: Tinnitus Assessment: Tinnitus Match- Pitch/Frequency: Tinnitus Match- Loudness: Minimum Masking Level: Comparison: Compared to the most recent evaluation: Compared to most recent evaluation: Interpretation of Results: Recommendations: Diagnosis: Primary Diagnosis: Secondary Diagnosis: Services Performed: Signature: Student/Clinical Fellow: I have reviewed/agreed with student/fellow documentation: Provider:
[2022-02-18] MEDS: Fluticasone Propionate Nasal 16 GM SPRAY 1 SPRAY NOSTRIL-B (15:45)
[2022-02-18] MEDS: guaiFENesin DM 600/30 1 TAB TAB.ER.12H PO (17:52)
--- NOTE | 2022-02-18 18:10 | P.PNPSI_ITS ---
Subjective Subjective Date of Service: 02/18/22 Reason For Visit: OCD; Mood Liability; HI; Hx of Delusional Sx Interim History: Valproate level 02/19. Reports congestion to team. Believes increase in Valproate to be taking effect. Medication Compliance: Yes Side effects from medications: No Review of Systems Acute medical concerns: No Medical Review of Systems: unchanged Mental Status Exam Mental Status Exam Patient Appearance: Disheveled Patient Orientation: Person, Place and Situation Level of Consciousness: Alert Patient Behavior: Talkative, Distractible and Good Eye Contact Mood Description: Labile Affect Description: Labile Patient Cognition Impaired: Yes Ability to Follow Directions: Good Speech Pattern: Spontaneous Speech (aphasia) Memory Description: Episodic Impaired Hallucinations: None Thought Content: positive for [place] and positive for Circumstantial Abnormal Motor Activity Signs and Symptoms: Restlessness Judgement: Fair Diagnostics Vital Signs (24Hr): Vital Signs - 24 hr 02/17/22 20:01 02/18/22 06:00 Pulse Rate 83 Respiratory Rate 18 Blood Pressure 129/68 Pulse Oximetry 96 Oxygen Delivery Method Room Air BMI result Body Mass Index 32.1 Labs Results: 02/14/22 16:28 02/14/22 16:28 Medications Medications Current Medications Acetaminophen (Acetaminophen 325 Mg Tablet) 650 mg PO Q6H PRN PRN Reason: Headache/Pain Mild Scale (1-3) Al Hydroxide/Mg Hydroxide (Magnesium Hydrox/Alum Hydrox 30 Ml Oral.Susp) 30 ml PO Q6H PRN PRN Reason: Heartburn/Nausea Fluoxetine HCl (Fluoxetine Hcl 20 Mg Capsule) 80 mg PO DAILY [facility] Last Admin: 02/18/22 09:17 Dose: 80 mg Fluticasone Propionate (Fluticasone Propionate Nasal 16 Gm [place]) 1 spray NOSTRIL-B BID PRN PRN Reason: Nasal Congestion Last Admin: 02/18/22 15:45 Dose: 1 spray Hydroxyzine HCl (Hydroxyzine Hcl 25 Mg Tablet) 25 mg PO TID PRN PRN Reason: Anxiety Last Admin: 02/15/22 14:10 Dose: 25 mg Magnesium Hydroxide (Milk Of Magnesia 30 Ml Oral.Susp) 30 ml PO DAILY PRN PRN Reason: Constipation Melatonin (Melatonin 3 Mg Tablet) 6 mg PO BEDTIME [facility] Last Admin: 02/17/22 20:00 Dose: 6 mg Memantine (Memantine Hcl 10 Mg Tablet) 10 mg PO BID [facility] Last Admin: 02/18/22 09:17 Dose: 10 mg Pharmacy Consult (Consult Rx Perform Med Rec) 1 each MISCELLANE ONCE PRN PRN Reason: Consult order Risperidone (Risperidone 3 Mg Tablet) 3 mg PO DAILY [facility] Last Admin: 02/18/22 09:17 Dose: 3 mg Risperidone (Risperidone 2 Mg Tablet) 4 mg PO BEDTIME [facility] Last Admin: 02/17/22 20:00 Dose: 4 mg Trazodone HCl (Trazodone Hcl 50 Mg Tablet) 150 mg PO BEDTIME [facility] Last Admin: 02/17/22 20:00 Dose: 150 mg Valproic Acid (Valproic Acid (As Sodium Salt) 250 Mg/5 Ml Solution) 1,250 mg PO DAILY [facility] Last Admin: 02/18/22 09:17 Dose: 1,250 mg Valproic Acid (Valproic Acid (As Sodium Salt) 250 Mg/5 Ml Solution) 1,500 mg PO BEDTIME [facility] Last Admin: 02/17/22 19:59 Dose: 1,500 mg Vitamin E (Vitamin E (Dl,Tocopheryl Acet) 180 Mg (400 Unit) Capsule) 180 mg PO DAILY [facility] Last Admin: 02/18/22 09:17 Dose: 180 mg Allergies Allergies Allergy/AdvReac Type Severity Reaction Status Date / Time No Known Allergies Allergy Verified 02/01/22 11:26 Assessment & Plan Assessment & Plan (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 increase dosing by another 500 mg today, to 2750 daily (split 1250 daily and 1500 QHS). otherwise continue previous regimen. 02/16/22- Continue current plan. 02/17/22-Labs 02/19/22, Valproate, CBCD 02/18/22- Continue current plan. I spent minutes with the patient and/or on the patient floor today, greater than?50% of which was spent counseling/coordinating care. Patient educated on: medication risk/benefits Informed Consent: further education needed Reason for contiued inpatient stay Substantial Risk for: med/psych decompensation
[2022-02-18] MEDS: risperiDONE 2 MG TABLET 4 MG PO (20:30)
[2022-02-18] MEDS: traZODone HCL 50 MG TABLET 150 MG PO (20:30)
[2022-02-18] MEDS: Melatonin 3 MG TABLET 6 MG PO (20:30)
[2022-02-19 08:31] LABS: Basophils Percent Auto 0.4 % (0-2); Eosinophils Absolute Auto 0.1 X10*3/uL (0.0-0.4); Eosinophils Percent Auto 0.9 % (0-4); Hematocrit 42.7 % (42.0-52.0); Hemoglobin 14.5 g/dl (14.0-18.0); Imm Gran Abs Auto 0.09 X10*3/uL (0.00-0.03); Imm Gran Pct Auto 1.1 % (0.0-0.4); Lymphocytes Absolute Auto 1.2 X10*3/uL (1.2-4.9); Lymphocytes Percent Auto 14.4 % (20-40); MANUAL DIFF FLAG SCAN; Mean Corpuscular Hemoglobin 29.8 pg (27.0-33.0); Mean Corpuscular Volume 87.9 fL (80.0-98.0); Mean Platelet Volume 9.4 fL (9.4-12.4); Monocytes Absolute Auto 1.9 X10*3/uL (0.1-1.2); Monocytes Percent Auto 23.8 % (2-11); Neutrophils Absolute Auto 4.8 x10*3/uL (2.0-8.3); Neutrophils Percent Auto 59.4 % (45-73); Platelet Count 241 X10*3/uL (160-400); Red Blood Count 4.86 X10*6/uL (4.60-5.80); Red Cell Distribution Width 12.1 % (11.0-16.0); SCAN SMEAR FLAG 1; White Blood Count 8.1 X10*3/uL (4.8-10.8)
[2022-02-19 08:51] LABS: Valproate 72.7 mcg/mL (50.0-100.0)
[2022-02-19 09:20] LABS: SLIDE REVIEW VERIFIED
[2022-02-19] MEDS: FLUoxetine HCl 20 MG CAPSULE 80 MG PO (09:24)
[2022-02-19] MEDS: Memantine HCl 10 MG TABLET PO ×2 (09:25→20:03)
[2022-02-19] MEDS: Vitamin E (Dl,Tocopheryl Acet) 180 MG (400 UNIT) CAPSULE PO (09:25)
[2022-02-19] MEDS: risperiDONE 3 MG TABLET PO (09:25)
[2022-02-19 09:39] VITALS: RESP 20
--- NOTE | 2022-02-19 14:50 | P.PNPSI_ITS ---
Subjective Subjective Date of Service: 02/19/22 Reason For Visit: OCD; Mood Liability; HI; Hx of Delusional Sx Interim History: calm, cooperative. found resting in his room. educated re med dosing over the weekend. labs from today reviewed, VPA level in the 70s. planning for mtg with outpt providers prior to discharge. cannot say whether he feels better or less impulsive. per staff, coughing on peers, causing general dissatisfaction. demanding, verbal outburst toward RN last night. Mental Status Exam Mental Status Exam Narrative: A&O. unkempt appearance, disheveled. fair eye contact, attentive. No Tics or Tremors. less activated, cooperative, engaged. Non-pressured speech, spontaneous with regular rate, normal prosody, increased amount and loudness. No prolonged speech latency or dysarthria. word-finding difficulties due to expressive aphasia. affect is hyper-intense, min-labile. no SI/HI/AVH expressed. Insight/ Judgment limited but adequate. Diagnostics Vital Signs (24Hr): Vital Signs - 24 hr 02/19/22 09:39 Respiratory Rate 20 BMI result Body Mass Index 32.1 Labs Results: 02/19/22 08:15 02/14/22 16:28 Labs: Laboratory Results - last 48 hr 02/19/22 02/19/22 08:15 08:15 WBC 8.1 RBC 4.86 Hgb 14.5 Hct 42.7 MCV 87.9 MCH 29.8 MCHC 34.0 RDW 12.1 Plt Count 241 MPV 9.4 Immature Gran % (Auto) 1.1 H Neut % (Auto) 59.4 Lymph % (Auto) 14.4 L Garza % (Auto) 23.8 H Eos % (Auto) 0.9 Baso % (Auto) 0.4 Lymph # (Auto) 1.2 Garza # (Auto) 1.9 H Eos # (Auto) 0.1 Baso # (Auto) 0.0 Abs Immat Gran (auto) 0.09 H Absolute Neuts (auto) 4.8 Absolute Nucleated RBC 0.000 Nucleated RBC % (auto) 0.0 Smear Tech's Comments VERIFIED Valproic Acid 72.7 Medications Medications Current Medications Acetaminophen (Acetaminophen 325 Mg Tablet) 650 mg PO Q6H PRN PRN Reason: Headache/Pain Mild Scale (1-3) Al Hydroxide/Mg Hydroxide (Magnesium Hydrox/Alum Hydrox 30 Ml Oral.Susp) 30 ml PO Q6H PRN PRN Reason: Heartburn/Nausea Fluoxetine HCl (Fluoxetine Hcl 20 Mg Capsule) 80 mg PO DAILY [facility] Last Admin: 02/19/22 09:24 Dose: 80 mg Fluticasone Propionate (Fluticasone Propionate Nasal 16 Gm [place]) 1 spray NOSTRIL-B BID PRN PRN Reason: Nasal Congestion Last Admin: 02/18/22 15:45 Dose: 1 spray Hydroxyzine HCl (Hydroxyzine Hcl 25 Mg Tablet) 25 mg PO TID PRN PRN Reason: Anxiety Last Admin: 02/15/22 14:10 Dose: 25 mg Magnesium Hydroxide (Milk Of Magnesia 30 Ml Oral.Susp) 30 ml PO DAILY PRN PRN Reason: Constipation Melatonin (Melatonin 3 Mg Tablet) 6 mg PO BEDTIME [facility] Last Admin: 02/18/22 20:30 Dose: 6 mg Memantine (Memantine Hcl 10 Mg Tablet) 10 mg PO BID [facility] Last Admin: 02/19/22 09:25 Dose: 10 mg Pharmacy Consult (Consult Rx Perform Med Rec) 1 each MISCELLANE ONCE PRN PRN Reason: Consult order Risperidone (Risperidone 3 Mg Tablet) 3 mg PO DAILY [facility] Last Admin: 02/19/22 09:25 Dose: 3 mg Risperidone (Risperidone 2 Mg Tablet) 4 mg PO BEDTIME [facility] Last Admin: 02/18/22 20:30 Dose: 4 mg Trazodone HCl (Trazodone Hcl 50 Mg Tablet) 150 mg PO BEDTIME [facility] Last Admin: 02/18/22 20:30 Dose: 150 mg Valproic Acid (Valproic Acid (As Sodium Salt) 250 Mg/5 Ml Solution) 1,250 mg PO DAILY [facility] Last Admin: 02/19/22 09:26 Dose: 1,250 mg Valproic Acid (Valproic Acid (As Sodium Salt) 250 Mg/5 Ml Solution) 1,500 mg PO BEDTIME [facility] Last Admin: 02/18/22 20:29 Dose: 1,500 mg Vitamin E (Vitamin E (Dl,Tocopheryl Acet) 180 Mg (400 Unit) Capsule) 180 mg PO DAILY [facility] Last Admin: 02/19/22 09:25 Dose: 180 mg Allergies Allergies Allergy/AdvReac Type Severity Reaction Status Date / Time No Known Allergies Allergy Verified 02/01/22 11:26 Assessment & Plan Assessment & Plan (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 increase dosing by another 500 mg today, to 2750 daily (split 1250 daily and 1500 QHS). otherwise continue previous regimen. 02/16/22- Continue current plan. 02/17/22-Labs 02/19/22, Valproate, CBCD 02/18/22- Continue current plan. 02/19: VPA 72.7 today. pt unable to appreciate whether he feels improved in any way, or not. productive cough. no change in mgmt for now. mtg with outpt providers and discharge TBD. I spent ___25___ minutes with the patient and/or on the patient floor today, greater than?50% of which was spent counseling/coordinating care. Reason for contiued inpatient stay Substantial Risk for: harm to others, inability to function and rapid decompensation
[2022-02-19 19:55] VITALS: PULSE 100; RESP 18; TEMP 36.9; O2SAT 95
[2022-02-19] MEDS: risperiDONE 2 MG TABLET 4 MG PO (20:03)
[2022-02-19] MEDS: traZODone HCL 50 MG TABLET 150 MG PO (20:03)
[2022-02-19] MEDS: Melatonin 3 MG TABLET 6 MG PO (20:04)
[2022-02-20] MEDS: Vitamin E (Dl,Tocopheryl Acet) 180 MG (400 UNIT) CAPSULE PO (09:48)
[2022-02-20] MEDS: Memantine HCl 10 MG TABLET PO ×2 (09:48→19:53)
[2022-02-20] MEDS: risperiDONE 3 MG TABLET PO (09:48)
[2022-02-20] MEDS: FLUoxetine HCl 20 MG CAPSULE 80 MG PO (09:48)
[2022-02-20] MEDS: Loratadine 10 MG TABLET PO (09:48)
[2022-02-20 10:31] LABS: COVID-19 Test Positive (Negative); IDNOW Serial# 9DD0AD1C
--- NOTE | 2022-02-20 11:10 | PC.NURSE ---
Pt was presented with cold sx, nasal congestion and moist cough, T 98.1. MD was aware and a Covid test was ordered. Pt covid test positive, MD notified and Sider Mechanic. Pts roommate moved to a separate room, both patients placed on precautions. Patient has no s/sx of respiratory distress.
--- NOTE | 2022-02-20 13:40 | P.PNPSI_ITS ---
Subjective Subjective Date of Service: 02/20/22 Reason For Visit: OCD; Mood Liability; HI; Hx of Delusional Sx Interim History: COVID POS today, roommate moved out, to remain in his own room. had been planning for mtg with correction staff tomorrow, now may just happen via telephone. hoping to be able to discharge pt home tomorrow. pt seen in his room, lying in bed, no complaints or requests. per staff, slept during days yesterday. isolative on eves. denying psych Sx. poor boundaries. productive cough. refusing claritin. sneezing. impulsive. Mental Status Exam Mental Status Exam Narrative: A&O. unkempt appearance, disheveled. fair eye contact, attentive. No Tics or Tremors. less activated, cooperative, engaged. Non-pressured speech, spontaneous with regular rate, normal prosody, nml amount and loudness. No prolonged speech latency or dysarthria. word-finding difficulties due to expressive aphasia. affect is hyper-intense, non-labile. no SI/HI/AVH expressed. Insight/ Judgment limited but adequate. Diagnostics Vital Signs (24Hr): Vital Signs - 24 hr 02/19/22 19:55 Temperature 98.4 F Pulse Rate 100 Respiratory Rate 18 Pulse Oximetry 95 Oxygen Delivery Method Room Air BMI result Body Mass Index 32.1 Labs Results: 02/19/22 08:15 02/14/22 16:28 Labs: Laboratory Results - last 48 hr 02/19/22 02/19/22 02/20/22 08:15 08:15 09:54 WBC 8.1 RBC 4.86 Hgb 14.5 Hct 42.7 MCV 87.9 MCH 29.8 MCHC 34.0 RDW 12.1 Plt Count 241 MPV 9.4 Immature Gran % (Auto) 1.1 H Neut % (Auto) 59.4 Lymph % (Auto) 14.4 L [place] % (Auto) 23.8 H Eos % (Auto) 0.9 Baso % (Auto) 0.4 Lymph # (Auto) 1.2 [place] # (Auto) 1.9 H Eos # (Auto) 0.1 Baso # (Auto) 0.0 Abs Immat Gran (auto) 0.09 H Absolute Neuts (auto) 4.8 Absolute Nucleated RBC 0.000 Nucleated RBC % (auto) 0.0 Smear Tech's Comments VERIFIED Valproic Acid 72.7 COVID-19 (NGOZI) Positive A COVID-19 Clin Com See Note Medications Medications Current Medications Acetaminophen (Acetaminophen 325 Mg Tablet) 650 mg PO Q6H PRN PRN Reason: Headache/Pain Mild Scale (1-3) Al Hydroxide/Mg Hydroxide (Magnesium Hydrox/Alum Hydrox 30 Ml Oral.Susp) 30 ml PO Q6H PRN PRN Reason: Heartburn/Nausea Fluoxetine HCl (Fluoxetine Hcl 20 Mg Capsule) 80 mg PO DAILY [facility] Last Admin: 02/20/22 09:48 Dose: 80 mg Guaifenesin (Guaifenesin 200 Mg/10 Ml 10 Ml Liquid) 10 ml PO Q4H PRN PRN Reason: productive cough Hydroxyzine HCl (Hydroxyzine Hcl 25 Mg Tablet) 25 mg PO TID PRN PRN Reason: Anxiety Last Admin: 02/15/22 14:10 Dose: 25 mg Loratadine (Loratadine 10 Mg Tablet) 10 mg PO DAILY [facility] Last Admin: 02/20/22 09:48 Dose: 10 mg Magnesium Hydroxide (Milk Of Magnesia 30 Ml Oral.Susp) 30 ml PO DAILY PRN PRN Reason: Constipation Melatonin (Melatonin 3 Mg Tablet) 6 mg PO BEDTIME [facility] Last Admin: 02/19/22 20:04 Dose: 6 mg Memantine (Memantine Hcl 10 Mg Tablet) 10 mg PO BID [facility] Last Admin: 02/20/22 09:48 Dose: 10 mg Pharmacy Consult (Consult Rx Perform Med Rec) 1 each MISCELLANE ONCE PRN PRN Reason: Consult order Phenylephrine HCl (Phenylephrine Hcl 0.5 % Nasal 15 Ml Sprbtl) 2 spray NOSTRIL- B Q4H PRN PRN Reason: Nasal Congestion Stop: 02/22/22 20:09 Risperidone (Risperidone 3 Mg Tablet) 3 mg PO DAILY [facility] Last Admin: 02/20/22 09:48 Dose: 3 mg Risperidone (Risperidone 2 Mg Tablet) 4 mg PO BEDTIME [facility] Last Admin: 02/19/22 20:03 Dose: 4 mg Trazodone HCl (Trazodone Hcl 50 Mg Tablet) 150 mg PO BEDTIME [facility] Last Admin: 02/19/22 20:03 Dose: 150 mg Valproic Acid (Valproic Acid (As Sodium Salt) 250 Mg/5 Ml Solution) 1,250 mg PO DAILY [facility] Last Admin: 10/12/22 09:46 Dose: 1,250 mg Valproic Acid (Valproic Acid (As Sodium Salt) 250 Mg/5 Ml Solution) 1,500 mg PO BEDTIME [facility] Last Admin: 02/19/22 20:03 Dose: 1,500 mg Vitamin E (Vitamin E (Dl,Tocopheryl Acet) 180 Mg (400 Unit) Capsule) 180 mg PO DAILY [facility] Last Admin: 02/20/22 09:48 Dose: 180 mg Allergies Allergies Allergy/AdvReac Type Severity Reaction Status Date / Time No Known Allergies Allergy Verified 02/01/22 11:26 Assessment & Plan Assessment & Plan (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 increase dosing by another 500 mg today, to 2750 daily (split 1250 daily and 1500 QHS). otherwise continue previous regimen. 02/16/22- Continue current plan. 02/17/22-Labs 02/19/22, Valproate, CBCD 02/18/22- Continue current plan. 02/19: VPA 72.7 today. pt unable to appreciate whether he feels improved in any way, or not. productive cough. no change in mgmt for now. mtg with outpt providers and discharge TBD. 02/20: COVID POS. discharge TBD. discussion to be had btwn pt and correction staff prior to discharge. hoping for tomorrow. I spent ___25___ minutes with the patient and/or on the patient floor today, greater than?50% of which was spent counseling/coordinating care. Reason for contiued inpatient stay Substantial Risk for: rapid decompensation
[2022-02-20] MEDS: traZODone HCL 50 MG TABLET 150 MG PO (19:52)
[2022-02-20] MEDS: risperiDONE 2 MG TABLET 4 MG PO (19:52)
[2022-02-20] MEDS: Melatonin 3 MG TABLET 6 MG PO (19:53)
[2022-02-20 20:26] VITALS: RESP 14; TEMP 36.6; O2SAT 95
[2022-02-21] MEDS: FLUoxetine HCl 20 MG CAPSULE 80 MG PO (09:54)
[2022-02-21] MEDS: Loratadine 10 MG TABLET PO (09:55)
[2022-02-21] MEDS: Vitamin E (Dl,Tocopheryl Acet) 180 MG (400 UNIT) CAPSULE PO (09:55)
[2022-02-21] MEDS: risperiDONE 3 MG TABLET PO (09:55)
[2022-02-21] MEDS: Memantine HCl 10 MG TABLET PO ×2 (09:55→19:51)
--- NOTE | 2022-02-21 14:04 | P.PNPSI_ITS ---
Subjective Subjective Date of Service: 02/21/22 Reason For Visit: OCD; Mood Liability; HI; Hx of Delusional Sx Interim History: pt remains in isolation, symptomatic of COVID. seen x 2, while he was talking on phone with family independence case manager and after Tx team mtg with family independence case manager and other clinician [facility]. pt expressed concern he has not had an opportunity to be out in milieu interacting with others, and that to discharge him prior to such an opportunity would be premature. such was discussed in Tx team meeting, and it was decided that in light of recent failed discharge which was seemingly in part due to pt's sabotage, that attempting to get his confidence in the discharge plan was important for the plan to be successful. discharge was planned for early next week, in that case. per staff, pt remains in COVID isolation. pt is med-compliant and sleeping well. Mental Status Exam Mental Status Exam Narrative: A&O. unkempt appearance, disheveled. fair eye contact, attentive. No Tics or Tremors. less activated, cooperative, engaged. Non-pressured speech, spontaneous with regular rate, normal prosody, nml amount and loudness. No prolonged speech latency or dysarthria. word-finding difficulties due to expressive aphasia. affect is normo-intense, non-labile. no SI/HI/AVH ex pressed. Insight/ Judgment limited but adequate. Diagnostics Vital Signs (24Hr): Vital Signs - 24 hr 02/20/22 20:26 Temperature 97.8 F Respiratory Rate 14 Pulse Oximetry 95 Oxygen Delivery Method Room Air BMI result Body Mass Index 32.1 Labs Results: 02/19/22 08:15 02/14/22 16:28 Labs: Laboratory Results - last 48 hr 02/20/22 09:54 COVID-19 (NGOZI) Positive A COVID-19 Clin Com See Note Medications Medications Current Medications Acetaminophen (Acetaminophen 325 Mg Tablet) 650 mg PO Q6H PRN PRN Reason: Headache/Pain Mild Scale (1-3) Al Hydroxide/Mg Hydroxide (Magnesium Hydrox/Alum Hydrox 30 Ml Oral.Susp) 30 ml PO Q6H PRN PRN Reason: Heartburn/Nausea Fluoxetine HCl (Fluoxetine Hcl 20 Mg Capsule) 80 mg PO DAILY [facility] Last Admin: 02/21/22 09:54 Dose: 80 mg Guaifenesin (Guaifenesin 200 Mg/10 Ml 10 Ml Liquid) 10 ml PO Q4H PRN PRN Reason: productive cough Hydroxyzine HCl (Hydroxyzine Hcl 25 Mg Tablet) 25 mg PO TID PRN PRN Reason: Anxiety Last Admin: 02/15/22 14:10 Dose: 25 mg Loratadine (Loratadine 10 Mg Tablet) 10 mg PO DAILY [facility] Last Admin: 02/21/22 09:55 Dose: 10 mg Magnesium Hydroxide (Milk Of Magnesia 30 Ml Oral.Susp) 30 ml PO DAILY PRN PRN Reason: Constipation Melatonin (Melatonin 3 Mg Tablet) 6 mg PO BEDTIME [facility] Last Admin: 02/20/22 19:53 Dose: 6 mg Memantine (Memantine Hcl 10 Mg Tablet) 10 mg PO BID [facility] Last Admin: 02/21/22 09:55 Dose: 10 mg Pharmacy Consult (Consult Rx Perform Med Rec) 1 each MISCELLANE ONCE PRN PRN Reason: Consult order Phenylephrine HCl (Phenylephrine Hcl 0.5 % Nasal 15 Ml Sprbtl) 2 spray NOSTRIL- B Q4H PRN PRN Reason: Nasal Congestion Stop: 02/22/22 20:09 Risperidone (Risperidone 3 Mg Tablet) 3 mg PO DAILY [facility] Last Admin: 02/21/22 09:55 Dose: 3 mg Risperidone (Risperidone 2 Mg Tablet) 4 mg PO BEDTIME [facility] Last Admin: 02/20/22 19:52 Dose: 4 mg Trazodone HCl (Trazodone Hcl 50 Mg Tablet) 150 mg PO BEDTIME [facility] Last Admin: 02/20/22 19:52 Dose: 150 mg Valproic Acid (Valproic Acid (As Sodium Salt) 250 Mg/5 Ml Solution) 1,250 mg PO DAILY [facility] Last Admin: 02/21/22 09:54 Dose: 1,250 mg Valproic Acid (Valproic Acid (As Sodium Salt) 250 Mg/5 Ml Solution) 1,500 mg PO BEDTIME [facility] Last Admin: 02/20/22 19:51 Dose: 1,500 mg Vitamin E (Vitamin E (Dl,Tocopheryl Acet) 180 Mg (400 Unit) Capsule) 180 mg PO DAILY [facility] Last Admin: 02/21/22 09:55 Dose: 180 mg Allergies Allergies Allergy/AdvReac Type Severity Reaction Status Date / Time No Known Allergies Allergy Verified 02/01/22 11:26 Assessment & Plan Assessment & Plan (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 increase dosing by another 500 mg today, to 2750 daily (split 1250 daily and 1500 QHS). otherwise continue previous regimen. 02/16/22- Continue current plan. 02/17/22-Labs 02/19/22, Valproate, CBCD 02/18/22- Continue current plan. 02/19: VPA 72.7 today. pt unable to appreciate whether he feels improved in any way, or not. productive cough. no change in mgmt for now. mtg with outpt providers and discharge TBD. 02/20: COVID POS. discharge TBD. discussion to be had btwn pt and [facility] staff prior to discharge. hoping for tomorrow. 02/21: discharge delayed to allow for more time to assess for behavioral stability once pt is able to be in the milieu again. test for COVID every 48 hours. planning for discharge early next week. I spent ___35___ minutes with the patient and/or on the patient floor today, greater than?50% of which was spent counseling/coordinating care. Guardian/Caregiver educated on: medication risk/benefits and therapeutic strategies Reason for contiued inpatient stay Substantial Risk for: rapid decompensation
[2022-02-21] MEDS: Melatonin 3 MG TABLET 6 MG PO (19:51)
[2022-02-21] MEDS: risperiDONE 2 MG TABLET 4 MG PO (19:51)
[2022-02-21] MEDS: traZODone HCL 50 MG TABLET 150 MG PO (19:51)
[2022-02-21 20:00] VITALS: BP 148/78; PULSE 80; TEMP 36.6; O2SAT 96
[2022-02-22] MEDS: Loratadine 10 MG TABLET PO (09:05)
[2022-02-22] MEDS: FLUoxetine HCl 20 MG CAPSULE 80 MG PO (09:05)
[2022-02-22] MEDS: risperiDONE 3 MG TABLET PO (09:05)
[2022-02-22] MEDS: Vitamin E (Dl,Tocopheryl Acet) 180 MG (400 UNIT) CAPSULE PO (09:05)
[2022-02-22] MEDS: Memantine HCl 10 MG TABLET PO ×2 (09:05→20:20)
[2022-02-22 12:21] LABS: COVID-19 Test Positive (Negative); IDNOW Serial# 16C4AD1C
--- NOTE | 2022-02-22 12:32 | P.PNPSI_ITS ---
Subjective Subjective Date of Service: 02/22/22 Reason For Visit: OCD; Mood Liability; HI; Hx of Delusional Sx Subjective Notes: Conditional Voluntary Interim History: Pt continues to be in isolation due to covid positive. Pt reports some SOB at times, O2 sat >96, no s/s of acute respiratory distress. Pt continues to have some congestion. Pt reports sleeping well. He reports feeling bored in the room all day long, but understands need for this. He denies SI/HI. No psychosis. He asks to switch back to tablet form of depakote. He also asks that once he returns to would like to switch total dose of depakote to bedtime. Medication Compliance: Yes Side effects from medications: No Review of Systems Review of Systems Constitutional : No Weight loss, No Fever, No Chills, No Fatigue, No Malaise ENT/Mouth : No sore throat, No Rhinorrhea Eyes: No Eye Pain, No Swelling, No Redness Cardiovascular : No Chest Pain, No SOB, No Dyspnea on Exertion, No Orthopnea, No Edema, No Palpitations Respiratory : No Cough, No Sputum, No Wheezing Gastrointestinal : No Nausea, No Vomiting, No Diarrhea, No Constipation, No abdominal Pain, No Hematochezia, No Melena Genitourinary : No Dysuria, No Urinary Frequency, No Hematuria, Musculoskeletal : No joint pain, No Myalgias, No Joint Swelling Skin : No Skin Lesions, No rash Neuro : No Weakness, No Numbness, No Dizziness, No Headache Psych : + Anxiety/Panic, No Depression, + HI, No SI All other systems reviewed and are negative Yes all other systems are reviewed and are negative Mental Status Exam Mental Status Exam Narrative: A&O. unkempt appearance, disheveled. fair eye contact, attentive. No Tics or Tremors. less activated, cooperative, engaged. Non-pressured speech, spontaneous with regular rate, normal prosody, nml amount and loudness. No prolonged speech latency or dysarthria. word-finding difficulties due to expressive aphasia. affect is normo-intense, non-labile. no SI/HI/AVH expressed. Insight/ Judgment limited but adequate. Patient Appearance: Disheveled Patient Orientation: Person, Place and Situation Level of Consciousness: Alert Patient Behavior: Talkative, Distractible and Good Eye Contact Mood Description: Labile Affect Description: Labile Patient Cognition Impaired: Yes Ability to Follow Directions: Good Speech Pattern: Spontaneous Speech (aphasia) Memory Description: Episodic Impaired Diagnostics Vital Signs (24Hr): BMI result Body Mass Index 32.1 Labs Results: 02/19/22 08:15 02/14/22 16:28 Labs: Laboratory Results - last 48 hr 02/22/22 02/23/22 11:55 07:24 Valproic Acid 93.6 COVID-19 (NGOZI) Positive A COVID-19 Clin Com See Note Medications Medications Current Medications Acetaminophen (Acetaminophen 325 Mg Tablet) 650 mg PO Q6H PRN PRN Reason: Headache/Pain Mild Scale (1-3) Al Hydroxide/Mg Hydroxide (Magnesium Hydrox/Alum Hydrox 30 Ml Oral.Susp) 30 ml PO Q6H PRN PRN Reason: Heartburn/Nausea Divalproex Sodium (Divalproex Sodium 250 Mg Tablet.) 1,250 mg PO DAILY [facility] Last Admin: 02/23/22 08:20 Dose: 1,250 mg Divalproex Sodium (Divalproex Sodium 500 Mg Tablet.) 1,500 mg PO BEDTIME [facility] Last Admin: 02/22/22 20:20 Dose: 1,500 mg Fluoxetine HCl (Fluoxetine Hcl 20 Mg Capsule) 80 mg PO DAILY [facility] Last Admin: 02/23/22 08:21 Dose: 80 mg Guaifenesin (Guaifenesin 200 Mg/10 Ml 10 Ml Liquid) 10 ml PO Q4H PRN PRN Reason: productive cough Hydroxyzine HCl (Hydroxyzine Hcl 25 Mg Tablet) 25 mg PO TID PRN PRN Reason: Anxiety Last Admin: 02/15/22 14:10 Dose: 25 mg Loratadine (Loratadine 10 Mg Tablet) 10 mg PO DAILY [facility] Last Admin: 02/23/22 08:21 Dose: 10 mg Magnesium Hydroxide (Milk Of Magnesia 30 Ml Oral.Susp) 30 ml PO DAILY PRN PRN Reason: Constipation Melatonin (Melatonin 3 Mg Tablet) 6 mg PO BEDTIME [facility] Last Admin: 02/22/22 20:21 Dose: 6 mg Memantine (Memantine Hcl 10 Mg Tablet) 10 mg PO BID [facility] Last Admin: 02/23/22 08:21 Dose: 10 mg Pharmacy Consult (Consult Rx Perform Med Rec) 1 each MISCELLANE ONCE PRN PRN Reason: Consult order Risperidone (Risperidone 3 Mg Tablet) 3 mg PO DAILY [facility] Last Admin: 02/23/22 08:21 Dose: 3 mg Risperidone (Risperidone 2 Mg Tablet) 4 mg PO BEDTIME [facility] Last Admin: 02/22/22 20:21 Dose: 4 mg Trazodone HCl (Trazodone Hcl 50 Mg Tablet) 150 mg PO BEDTIME [facility] Last Admin: 02/22/22 20:21 Dose: 150 mg Vitamin E (Vitamin E (Dl,Tocopheryl Acet) 180 Mg (400 Unit) Capsule) 180 mg PO DAILY [facility] Last Admin: 02/23/22 08:21 Dose: 180 mg Allergies Allergies Allergy/AdvReac Type Severity Reaction Status Date / Time No Known Allergies Allergy Verified 02/01/22 11:26 Assessment & Plan Assessment & Plan (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 increase dosing by another 500 mg today, to 2750 daily (split 1250 daily and 1500 QHS). otherwise continue previous regimen. 02/16/22- Continue current plan. 02/17/22-Labs 02/19/22, Valproate, CBCD 02/18/22- Continue current plan. 02/19: VPA 72.7 today. pt unable to appreciate whether he feels improved in any way, or not. productive cough. no change in mgmt for now. mtg with outpt providers and discharge TBD. 02/20: COVID POS. discharge TBD. discussion to be had btwn pt and senior care staff prior to discharge. hoping for tomorrow. 02/21: discharge delayed to allow for more time to assess for behavioral stability once pt is able to be in the milieu again. test for COVID every 48 hours. planning for discharge early next week. 02/[address] Wiggins- pt request switch to tablet form of depakote, and prior to discharge once a day dosing due to some sedation during the day. ordered depakote level for tomorrow AM. I spent minutes with the patient and/or on the patient floor today, greater than?50% of which was spent counseling/coordinating care. Reason for contiued inpatient stay Substantial Risk for: harm to others
[2022-02-22] MEDS: Divalproex Sodium 500 MG TABLET.DR 1500 MG PO (20:20)
[2022-02-22] MEDS: traZODone HCL 50 MG TABLET 150 MG PO (20:21)
[2022-02-22] MEDS: Melatonin 3 MG TABLET 6 MG PO (20:21)
[2022-02-22] MEDS: risperiDONE 2 MG TABLET 4 MG PO (20:21)
[2022-02-23 08:00] LABS: Valproate 93.6 mcg/mL (50.0-100.0)
[2022-02-23] MEDS: Divalproex Sodium 250 MG TABLET.DR 1250 MG PO (08:20)
[2022-02-23] MEDS: Memantine HCl 10 MG TABLET PO ×2 (08:21→20:28)
[2022-02-23] MEDS: FLUoxetine HCl 20 MG CAPSULE 80 MG PO (08:21)
[2022-02-23] MEDS: Vitamin E (Dl,Tocopheryl Acet) 180 MG (400 UNIT) CAPSULE PO (08:21)
[2022-02-23] MEDS: Loratadine 10 MG TABLET PO (08:21)
[2022-02-23] MEDS: risperiDONE 3 MG TABLET PO (08:21)
--- NOTE | 2022-02-23 14:48 | P.PNPSI_ITS ---
Subjective Subjective Date of Service: 02/23/22 Reason For Visit: OCD; Mood Liability; HI; Hx of Delusional Sx Interim History: in bed, in COVID isolation. no change in presentation. informed of VPA level. planning for discharge friday or friday. no complaints or requests. per staff , compliant, largely, with isolation procedures. VPA 93. slept overnight. denies anx/dep. Mental Status Exam Mental Status Exam Narrative: A&O. unkempt appearance, disheveled. fair eye contact, attentive. No Tics or Tremors. less activated, cooperative, engaged. Non-pressured speech, spontaneou s with regular rate, normal prosody, nml amount and loudness. No prolonged speech latency or dysarthria. word-finding difficulties due to expressive aphasia. affect is normo-intense, non-labile. no SI/HI/AVH expressed. Insight/ Judgment limited but adequate. Diagnostics Vital Signs (24Hr): BMI result Body Mass Index 32.1 Labs Results: 02/19/22 08:15 02/14/22 16:28 Labs: Laboratory Results - last 48 hr 02/22/22 02/23/22 11:55 07:24 Valproic Acid 93.6 COVID-19 (NGOZI) Positive A COVID-19 Clin Com See Note Medications Medications Current Medications Acetaminophen (Acetaminophen 325 Mg Tablet) 650 mg PO Q6H PRN PRN Reason: Headache/Pain Mild Scale (1-3) Al Hydroxide/Mg Hydroxide (Magnesium Hydrox/Alum Hydrox 30 Ml Oral.Susp) 30 ml PO Q6H PRN PRN Reason: Heartburn/Nausea Divalproex Sodium (Divalproex Sodium 250 Mg Tablet.) 1,250 mg PO DAILY [facility] Last Admin: 02/23/22 08:20 Dose: 1,250 mg Divalproex Sodium (Divalproex Sodium 500 Mg Tablet.) 1,500 mg PO BEDTIME [facility] Last Admin: 02/22/22 20:20 Dose: 1,500 mg Fluoxetine HCl (Fluoxetine Hcl 20 Mg Capsule) 80 mg PO DAILY [facility] Last Admin: 02/23/22 08:21 Dose: 80 mg Guaifenesin (Guaifenesin 200 Mg/10 Ml 10 Ml Liquid) 10 ml PO Q4H PRN PRN Reason: productive cough Hydroxyzine HCl (Hydroxyzine Hcl 25 Mg Tablet) 25 mg PO TID PRN PRN Reason: Anxiety Last Admin: 02/15/22 14:10 Dose: 25 mg Loratadine (Loratadine 10 Mg Tablet) 10 mg PO DAILY [facility] Last Admin: 02/23/22 08:21 Dose: 10 mg Magnesium Hydroxide (Milk Of Magnesia 30 Ml Oral.Susp) 30 ml PO DAILY PRN PRN Reason: Constipation Melatonin (Melatonin 3 Mg Tablet) 6 mg PO BEDTIME [facility] Last Admin: 02/22/22 20:21 Dose: 6 mg Memantine (Memantine Hcl 10 Mg Tablet) 10 mg PO BID [facility] Last Admin: 02/23/22 08:21 Dose: 10 mg Pharmacy Consult (Consult Rx Perform Med Rec) 1 each MISCELLANE ONCE PRN PRN Reason: Consult order Risperidone (Risperidone 3 Mg Tablet) 3 mg PO DAILY [facility] Last Admin: 02/23/22 08:21 Dose: 3 mg Risperidone (Risperidone 2 Mg Tablet) 4 mg PO BEDTIME [facility] Last Admin: 02/22/22 20:21 Dose: 4 mg Trazodone HCl (Trazodone Hcl 50 Mg Tablet) 150 mg PO BEDTIME [facility] Last Admin: 02/22/22 20:21 Dose: 150 mg Vitamin E (Vitamin E (Dl,Tocopheryl Acet) 180 Mg (400 Unit) Capsule) 180 mg PO DAILY [facility] Last Admin: 02/23/22 08:21 Dose: 180 mg Allergies Allergies Allergy/AdvReac Type Severity Reaction Status Date / Time No Known Allergies Allergy Verified 02/01/22 11:26 Assessment & Plan Assessment & Plan (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 increase dosing by another 500 mg today, to 2750 daily (split 1250 daily and 1500 QHS). otherwise continue previous regimen. 02/16/22- Continue current plan. 02/17/22-Labs 02/19/22, Valproate, CBCD 02/18/22- Continue current plan. 02/19: VPA 72.7 today. pt unable to appreciate whether he feels improved in any way, or not. productive cough. no change in mgmt for now. mtg with outpt providers and discharge TBD. 02/20: COVID POS. discharge TBD. discussion to be had btwn pt and assisted staff prior to discharge. hoping for tomorrow. 02/21: discharge delayed to allow for more time to assess for behavioral stability once pt is able to be in the milieu again. test for COVID every 48 hours. planning for discharge early next week. 02/[address] Wiggins- pt request switch to tablet form of depakote, and prior to discharge once a day dosing due to some sedation during the day. ordered depakote level for tomorrow AM. 02/23: VPA 93.6. continue current mgmt. I spent __15____ minutes with the patient and/or on the patient floor today, greater than?50% of which was spent counseling/coordinating care. Reason for contiued inpatient stay Substantial Risk for: harm to self, harm to others, inability to function and rapid decompensation
[2022-02-23] MEDS: traZODone HCL 50 MG TABLET 150 MG PO (20:28)
[2022-02-23] MEDS: risperiDONE 2 MG TABLET 4 MG PO (20:28)
[2022-02-23] MEDS: Divalproex Sodium 500 MG TABLET.DR 1500 MG PO (20:28)
[2022-02-23] MEDS: Melatonin 3 MG TABLET 6 MG PO (20:28)
[2022-02-24] MEDS: guaiFENesin 200 MG/10 ML 10 ML LIQUID PO ×3 (02:48→19:47)
[2022-02-24] MEDS: FLUoxetine HCl 20 MG CAPSULE 80 MG PO (09:15)
[2022-02-24] MEDS: Vitamin E (Dl,Tocopheryl Acet) 180 MG (400 UNIT) CAPSULE PO (09:16)
[2022-02-24] MEDS: Divalproex Sodium 250 MG TABLET.DR 1250 MG PO (09:16)
[2022-02-24] MEDS: risperiDONE 3 MG TABLET PO (09:17)
[2022-02-24] MEDS: Loratadine 10 MG TABLET PO (09:17)
[2022-02-24] MEDS: Memantine HCl 10 MG TABLET PO ×2 (09:17→19:47)
[2022-02-24 09:29] VITALS: RESP 17
[2022-02-24 13:45] LABS: COVID-19 Test Positive (Negative); IDNOW Serial# 55D5AD1C
--- NOTE | 2022-02-24 14:49 | HO.PSYCHPN ---
Subjective Subjective Date of Service: 02/24/22 Reason For Visit: OCD; Mood Liability; HI; Hx of Delusional Sx Interim History: calm, cooperative. asking when he will discharge, asking to come out of quarantine. informs him tomorrow will be day 5 since testing positive and he can come out then. per staff, COVID POS. declined to mask up when walking back to room from shower yesterday. called RN my sexy girlfriend. slept well. Mental Status Exam Mental Status Exam Narrative: A&O. unkempt appearance, disheveled. fair eye contact, attentive. No Tics or Tremors. less activated, cooperative, engaged. Non-pressured speech, spontaneous with regular rate, normal prosody, nml amount and loudness. No prolonged speech latency or dysarthria. word-finding difficulties due to expressive aphasia. affect is normo-intense, non-labile. no SI/HI/AVH expressed. Insight/ Judgment limited but adequate. Diagnostics Vital Signs (24Hr): Vital Signs - 24 hr 02/24/22 09:29 Respiratory Rate 17 BMI result Body Mass Index 32.1 Labs Results: 02/19/22 08:15 02/14/22 16:28 Labs: Laboratory Results - last 48 hr 02/23/22 02/24/22 07:24 13:10 Valproic Acid 93.6 COVID-19 (NGOZI) Positive A COVID-19 Clin Com See Note Medications Medications Current Medications Acetaminophen (Acetaminophen 325 Mg Tablet) 650 mg PO Q6H PRN PRN Reason: Headache/Pain Mild Scale (1-3) Al Hydroxide/Mg Hydroxide (Magnesium Hydrox/Alum Hydrox 30 Ml Oral.Susp) 30 ml PO Q6H PRN PRN Reason: Heartburn/Nausea Divalproex Sodium (Divalproex Sodium 250 Mg Tablet.) 1,250 mg PO DAILY [facility] Last Admin: 02/24/22 09:16 Dose: 1,250 mg Divalproex Sodium (Divalproex Sodium 500 Mg Tablet.) 1,500 mg PO BEDTIME [facility] Last Admin: 02/23/22 20:28 Dose: 1,500 mg Fluoxetine HCl (Fluoxetine Hcl 20 Mg Capsule) 80 mg PO DAILY [facility] Last Admin: 02/24/22 09:15 Dose: 80 mg Guaifenesin (Guaifenesin 200 Mg/10 Ml 10 Ml Liquid) 10 ml PO Q4H PRN PRN Reason: productive cough Last Admin: 02/24/22 09:51 Dose: 10 ml Hydroxyzine HCl (Hydroxyzine Hcl 25 Mg Tablet) 25 mg PO TID PRN PRN Reason: Anxiety Last Admin: 02/15/22 14:10 Dose: 25 mg Loratadine (Loratadine 10 Mg Tablet) 10 mg PO DAILY [facility] Last Admin: 02/24/22 09:17 Dose: 10 mg Magnesium Hydroxide (Milk Of Magnesia 30 Ml Oral.Susp) 30 ml PO DAILY PRN PRN Reason: Constipation Melatonin (Melatonin 3 Mg Tablet) 6 mg PO BEDTIME [facility] Last Admin: 02/23/22 20:28 Dose: 6 mg Memantine (Memantine Hcl 10 Mg Tablet) 10 mg PO BID [facility] Last Admin: 02/24/22 09:17 Dose: 10 mg Pharmacy Consult (Consult Rx Perform Med Rec) 1 each MISCELLANE ONCE PRN PRN Reason: Consult order Risperidone (Risperidone 3 Mg Tablet) 3 mg PO DAILY [facility] Last Admin: 02/24/22 09:17 Dose: 3 mg Risperidone (Risperidone 2 Mg Tablet) 4 mg PO BEDTIME [facility] Last Admin: 02/23/22 20:28 Dose: 4 mg Trazodone HCl (Trazodone Hcl 50 Mg Tablet) 150 mg PO BEDTIME [facility] Last Admin: 02/23/22 20:28 Dose: 150 mg Vitamin E (Vitamin E (Dl,Tocopheryl Acet) 180 Mg (400 Unit) Capsule) 180 mg PO DAILY [facility] Last Admin: 02/24/22 09:16 Dose: 180 mg Allergies Allergies Allergy/AdvReac Type Severity Reaction Status Date / Time No Known Allergies Allergy Verified 02/01/22 11:26 Assessment & Plan Assessment & Plan (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 increase dosing by another 500 mg today, to 2750 daily (split 1250 daily and 1500 QHS). otherwise continue previous regimen. 02/16/22- Continue current plan. 02/17/22-Labs 02/19/22, Valproate, CBCD 02/18/22- Continue current plan. 02/19: VPA 72.7 today. pt unable to appreciate whether he feels improved in any way, or not. productive cough. no change in mgmt for now. mtg with outpt providers and discharge TBD. 02/20: COVID POS. discharge TBD. discussion to be had btwn pt and assisted staff prior to discharge. hoping for tomorrow. 02/21: discharge delayed to allow for more time to assess for behavioral stability once pt is able to be in the milieu again. test for COVID every 48 hours. planning for discharge early next week. 02/[address] Wiggins- pt request switch to tablet form of depakote, and prior to discharge once a day dosing due to some sedation during the day. ordered depakote level for tomorrow AM. 02/23: VPA 93.6. continue current mgmt. 02/23: continue current mgmt. I spent ___20___ minutes with the patient and/or on the patient floor today, greater than?50% of which was spent counseling/coordinating care. Reason for contiued inpatient stay Substantial Risk for: inability to function
[2022-02-24] MEDS: risperiDONE 2 MG TABLET 4 MG PO (19:46)
[2022-02-24] MEDS: Divalproex Sodium 500 MG TABLET.DR 1500 MG PO (19:47)
[2022-02-24] MEDS: traZODone HCL 50 MG TABLET 150 MG PO (19:47)
[2022-02-24] MEDS: Melatonin 3 MG TABLET 6 MG PO (19:47)
[2022-02-25] MEDS: Memantine HCl 10 MG TABLET PO (09:09)
[2022-02-25] MEDS: risperiDONE 3 MG TABLET PO (09:09)
[2022-02-25] MEDS: Loratadine 10 MG TABLET PO (09:09)
[2022-02-25] MEDS: Vitamin E (Dl,Tocopheryl Acet) 180 MG (400 UNIT) CAPSULE PO (09:10)
[2022-02-25] MEDS: FLUoxetine HCl 20 MG CAPSULE 80 MG PO (09:10)
[2022-02-25] MEDS: Divalproex Sodium 250 MG TABLET.DR 1250 MG PO (09:10)
--- NOTE | 2022-02-25 11:55 | P.DS_ITS ---
DS: Providers Provider Date of Service: 02/25/22 Date of admission: 02/14/22 23:39 Primary care physician: Herrera Hassan MD DS: Diagnosis Discharge Diagnosis (1) alcohol syndrome: Status: Acute (2) OCD (obsessive compulsive disorder): Status: Acute (3) Expressive language impairment: Status: Acute (4) Intermittent explosive disorder in adult: Status: Acute DS: Medications Discharge Medications Home Medications: Home Medications Medication Instructions Recorded Confirmed fluticasone propionate 50 1 spray intranasal BID PRN Nasal 10/26/21 02/14/22 mcg/actuation nasal Congestion spray,suspension hydroxyzine HCl 25 mg tablet 1 tab PO TID PRN Anxiety 10/26/21 02/14/22 melatonin 3 mg tablet 6 mg PO BEDTIME 10/26/21 02/14/22 memantine 10 mg tablet 1 tab PO BID 10/26/21 02/14/22 risperidone 4 mg tablet 1 tab PO BEDTIME 10/26/21 02/14/22 trazodone 150 mg tablet 1 tab PO BEDTIME 10/26/21 02/14/22 vitamin E (dl, acetate) 180 mg 400 unit PO DAILY 10/26/21 02/14/22 (400 unit) capsule risperidone 3 mg tablet 1 tab PO DAILY 02/03/22 02/14/22 fluoxetine 40 mg capsule 80 mg PO DAILY 02/14/22 02/14/22 Previous Rx's Medication Instructions Recorded divalproex 250 mg tablet,delayed 1,250 mg PO DAILY 30 days #150 tabs 02/25/22 release divalproex 500 mg tablet,delayed 1,500 mg PO BEDTIME 30 days #90 02/25/22 release tabs guaifenesin 100 mg/5 mL oral liquid 200 mg (10 mL) PO Q4H PRN 02/25/22 productive cough 5 days #473 mL Mental Status Exam Mental Status Exam Narrative: A&O. unkempt appearance, disheveled. fair eye contact, attentive. No Tics or Tremors. less activated, cooperative, engaged. Non-pressured speech, spontaneous with regular rate, normal prosody, nml amount and loudness. No pro longed speech latency or dysarthria. word-finding difficulties due to expressive aphasia. affect is normo-intense, min-labile. mood frustrated. no SI/HI/AVH. Insight/ Judgment limited but adequate. Data Data Completed and Pending Completed studies during hospitalization [Text1]: 02/19/22 02/19/22 02/20/22 08:15 08:15 09:54 WBC 8.1 RBC 4.86 Hgb 14.5 Hct 42.7 MCV 87.9 MCH 29.8 MCHC 34.0 RDW 12.1 Plt Count 241 MPV 9.4 Immature Gran % (Auto) 1.1 H Neut % (Auto) 59.4 Lymph % (Auto) 14.4 L Garvin % (Auto) 23.8 H Eos % (Auto) 0.9 Baso % (Auto) 0.4 Lymph # (Auto) 1.2 Garvin # (Auto) 1.9 H Eos # (Auto) 0.1 Baso # (Auto) 0.0 Abs Immat Gran (auto) 0.09 H Absolute Neuts (auto) 4.8 Absolute Nucleated RBC 0.000 Nucleated RBC % (auto) 0.0 Smear Tech's Comments VERIFIED Valproic Acid 72.7 COVID-19 (NGOZI) Positive A COVID-19 Clin Com See Note 02/22/22 02/23/22 02/24/22 11:55 07:24 13:10 WBC RBC Hgb Hct MCV MCH MCHC RDW Plt Count MPV Immature Gran % (Auto) Neut % (Auto) Lymph % (Auto) Garvin % (Auto) Eos % (Auto) Baso % (Auto) Lymph # (Auto) Garvin # (Auto) Eos # (Auto) Baso # (Auto) Abs Immat Gran (auto) Absolute Neuts (auto) Absolute Nucleated RBC Nucleated RBC % (auto) Smear Tech's Comments Valproic Acid 93.6 COVID-19 (NGOZI) Positive A Positive A COVID-19 Clin Com See Note See Note DS: Summary Hospital Course Hospital Course: per 02/15 admission note: pt presented to [facility] for eval stating he was having strong urges to smash things, believing his VPA dosage had not been increased enough.? he was noted to repeatedly bang his clenched fists on the table and repeat, i just get so angry. ? he was readmitted to , from whence he discharged earlier this week after having undergone a switch from VPA tablet to liquid formulation.? his dosage had been increased by 500 mg during that stay, and he had been demanding it be increased by 1000 mg daily.? on interview with , pt stated MD was not hi s doctor and he wanted the other provider who works on the unit (who is a female and who has noted poor boundaries with regard to this patient's behavior toward her).? pt was informed i would be his doctor, which frustrated and upset him, causing him shortly to quit the interview room. Past Psychiatric History: Inpatient: last admisisons [facility] [place] February 2022, May 2021.? OP: [facility] Dr. 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 Past trials: depakote, risperidone, namenda Medical Evaluation Reviewed: Yes PMFSH Medical History? Anal fistula Anxiety and depression Obsessive compulsive disorder Screening for diabetes mellitus Screening for hyperlipidemia Surgical History? No pertinent past surgical history Family History: unknown- pt did not know Social History: lives in . Close to both parents, no children of his own not . Substance History: denies use Trauma History: denies Precis: 02/15: VPA level only 56 at admission. increase dosing by another 500 mg today, to 2750 daily (split 1250 daily and 1500 QHS). otherwise continue previous regimen. 02/16/22- Continue current plan. 02/17/22-Labs 02/19/22, Valproate, CBCD 02/18/22- Continue current plan. 02/19: VPA 72.7 today.? pt unable to appreciate whether he feels improved in any way, or not.? productive cough.? no change in mgmt for now.? mtg with outpt providers and discharge TBD. 02/20: COVID POS.? discharge TBD.? discussion to be had btwn pt and snf staff prior to discharge.? hoping for tomorrow. 02/21: discharge delayed to allow for more time to assess for behavioral stability once pt is able to be in the milieu again.? test for COVID every 48 hours.? planning for discharge early next week. 02/[address] Wiggins- pt request switch to tablet form of depakote, and prior to discharge once a day dosing due to some sedation during the day. ordered depakote level for tomorrow AM. 02/23: VPA 93.6.? continue current mgmt. 02/24: continue current mgmt. 02/25: at baseline, discharge to snf. Time Spent with Patient Time attestation: Total time spent providing and/or coordinating discharge services: Time spent: Greater than 30 minutes Discharge Plan Discharge Anticipated Discharge Date/Time: 02/25/22 14:00 Patient Disposition: Home, Self-Care Discharge Diagnosis: Intermittent Explosive Disorder Alcohol Syndrome Referrals: Jack Dash (psychiatrist) [Other] - 02/26/22 9:00 am (In office appointment) Herrera Hassan MD [Primary Care Provider] - 1 Week (Provider will give snf a call to schedule an appointment ) Discharge Medications: New divalproex 250 mg Tablet,Delayed Release (Dr/Ec) 1,250 mg PO DAILY 30 Days Qty: 150 0RF divalproex 500 mg Tablet,Delayed Release (Dr/Ec) 1,500 mg PO BEDTIME 30 Days Qty: 90 0RF guaifenesin 100 mg/5 mL Liquid 200 mg PO Q4H PRN (Reason: productive cough) 5 Days Qty: 473 0RF Continued risperidone 4 mg tablet 1 tab PO BEDTIME trazodone 150 mg tablet 1 tab PO BEDTIME vitamin E (dl, acetate) 180 mg (400 unit) capsule 400 unit PO DAILY melatonin 3 mg tablet 6 mg PO BEDTIME hydroxyzine HCl 25 mg tablet 1 tab PO TID PRN (Reason: Anxiety) memantine 10 mg tablet 1 tab PO BID fluticasone propionate 50 mcg/actuation spray,suspension 1 spray intranasal BID PRN (Reason: Nasal Congestion) risperidone 3 mg tablet 1 tab PO DAILY fluoxetine 40 mg capsule 80 mg PO DAILY Discontinued valproic acid (as sodium salt) 250 mg/5 mL (5 mL) Solution 1,250 mg PO BEDTIME 30 Days Qty: 750 0RF valproic acid (as sodium salt) 250 mg/5 mL (5 mL) Solution 1,000 mg PO DAILY 30 Days Qty: 600 0RF Discharge Orders: Discharge Order (Routine); Ordered 02/25/22 Ordered By: Ayaan Wiggins Diet: Advance to usual diet Activity on Discharge: As tolerated Stand Alone Forms: Patient Portal Discharge page, Community Support Care Plan Goals: remain safe and stable in the outpatient treatment setting Health Concerns: none Plan of Treatment: take medications as prescribed, attend appointments as scheduled Assessment: not at imminent risk of harm to self or others
== END 2022-02-25 16:45 | disposition home or self-care (01) | DRG 883 ==
LOC: HO.ED 20:44 → HO.PADLT16 23:46
PROVIDERS: Clinical Nurse Specialist Psychiatric/Mental Health, Adult; Physician Assistant; Social Worker; Admitting Provider Psychiatry & Neurology Psychiatry; Emergency Provider Student in an Organized Health Care Education/Training Program; PCP Internal Medicine; Visit Provider Psychiatry & Neurology Psychiatry
DX: F63.81 Intermittent explosive disorder (principal); R45.850 Homicidal ideations; Q86.0 Fetal alcohol syndrome (dysmorphic); E78.5 Hyperlipidemia, unspecified; F42.9 Obsessive-compulsive disorder, unspecified; F80.1 Expressive language disorder; Z87.891 Personal history of nicotine dependence; Z79.51 Long term (current) use of inhaled steroids; Z79.899 Other long term (current) drug therapy
CPT/HCPCS: 36415; 80048; 80164; 80307; 81001; 82077; 85025; 87635; 93005; 99285

== ENCOUNTER 2022-03-04 12:15 | Outpatient (REF) | payer OTHER, SELFPAY ==
[2022-03-04 12:40] LABS: Hematocrit 44.7 % (42.0-52.0); Hemoglobin 15.2 g/dl (14.0-18.0); Mean Corpuscular Volume 88.2 fL (80.0-98.0); Mean Platelet Volume 9.4 fL (9.4-12.4); Platelet Count 280 X10*3/uL (160-400); Red Blood Count 5.07 X10*6/uL (4.60-5.80); Red Cell Distribution Width 12.5 % (11.0-16.0); White Blood Count 8.5 X10*3/uL (4.8-10.8)
[2022-03-04 12:45] LABS: Ammonia 43 umol/L (13-55)
[2022-03-04 13:00] LABS: Alanine Aminotransferase 69 U/L (0-40); Albumin Level 4.2 g/dL (3.5-5.0); Alkaline Phosphatase 66 U/L (39-117); Anion Gap 14 (12-20); Aspartate Amino Transferase 53 U/L (5-37); Bilirubin Direct < 0.2 mg/dL (0.0-0.5); Bilirubin Total 0.3 mg/dL (0.0-1.0); Blood Urea Nitrogen 10 mg/dL (9-16); Calcium 9.4 mg/dL (8.4-10.2); Carbon Dioxide 29 mmol/L (22-29); Chloride 103 mmol/L (96-108); Estimated Glomerular Filt Rate > 60; Glucose Random 80 mg/dL (60-115); Potassium 4.4 mmol/L (3.3-5.1); Sodium 142 mmol/L (135-145); Total Protein 7.2 g/dL (6.5-8.0)
[2022-03-04 13:43] LABS: Appearance Urine Clear; Color Urine Dark Yellow; Glucose Urine UA Negative (Negative); Leukocyte Esterase Urine Negative (Negative); Nitrite Urine Negative (Negative); Specific Gravity - Urine >= 1.030 (1.005-1.025); Urine Blood Negative (Negative); Urine Ketones 15 mg/dL (Negative); Urine Protein Negative (Neg-Trace)
== END 2022-03-04 12:16 | disposition home or self-care (01) ==
LOC: HO.LAB 12:15
PROVIDERS: PCP Physician Assistant; Visit Provider Physician Assistant
DX: K52.9 Noninfective gastroenteritis and colitis, unspecified (principal); R30.0 Dysuria; R45.1 Restlessness and agitation
CPT/HCPCS: 36415; 80048; 80076; 81003; 82140; 85027

== ENCOUNTER 2022-03-08 17:22 | Inpatient (IN) | payer OTHER, SELFPAY ==
[2022-03-08 17:34] VITALS: BP 121/80; BP 130/85; PULSE 87; PULSE 89; RESP 16; O2SAT 96; O2SAT 99; BMI 32.2
--- NOTE | 2022-03-08 17:38 | ED.PSYCH ---
HPI - Psych General Chief Complaint: Psychiatric Symptoms <Theresa Nayak NP - Last Filed: 03/09/22 02:25> Stated Complaint: SEC 12. MATTIE <Theresa Nayak NP - Last Filed: 03/09/22 02:25> Time Seen by Provider: 03/08/22 17:38 <Theresa Nayak NP - Last Filed: 03/09/22 02:25> Source: patient and EMS <Theresa Nayak NP - Last Filed: 03/09/22 02:25> Mode of arrival: EMS <Theresa Nayak NP - Last Filed: 03/09/22 02:25> Limitations: other (Cognitive impairment) <Theresa Nayak NP - Last Filed: 03/09/22 02:25> History of Present Illness HPI Narrative: 42-year-old male presents via EMS under section 12 for aggressive behavior. <Theresa Nayak NP - Last Filed: 03/09/22 02:25> MD complaint: anxiety and other (Aggressive behavior) <Theresa Nayak NP - Last Filed: 03/09/22 02:25> Onset (ago): year(s) (Within the hour of arrival) <Theresa Nayak NP - Last Filed: 03/09/22 02:25> Duration: constant <Theresa Nayak NP - Last Filed: 03/09/22 02:25> History of same: Yes <Theresa Nayak NP - Last Filed: 03/09/22 02:25> Relieving factors: none <Theresa Nayak NP - Last Filed: 03/09/22 02:25> Exacerbating factors: other (Stressor) <Theresa Nayak NP - Last Filed: 03/09/22 02:25> Context: significant life stressor <Theresa Nayak NP - Last Filed: 03/09/22 02:25> Associated psychiatric symptoms: other (Anger) <Theresa Nayak NP - Last Filed: 03/09/22 02:25> Associated symptoms: denies other symptoms <Theresa Nayak NP - Last Filed: 03/09/22 02:25> Treatments prior to arrival: placed on mental health hold <Theresa Nayak NP - Last Filed: 03/09/22 02:25> Related Data Home Medications: Home Medications Medication Instructions Recorded Confirmed fluticasone propionate 50 1 spray intranasal BID PRN Nasal 10/26/21 03/08/22 mcg/actuation nasal Congestion spray,suspension hydroxyzine HCl 25 mg tablet 1 tab PO TID PRN Anxiety 10/26/21 03/08/22 melatonin 3 mg tablet 6 mg PO BEDTIME 10/26/21 03/08/22 memantine 10 mg tablet 1 tab PO BID 10/26/21 03/08/22 risperidone 4 mg tablet 1 tab PO BEDTIME 10/26/21 03/08/22 trazodone 150 mg tablet 1 tab PO BEDTIME 10/26/21 03/08/22 vitamin E (dl, acetate) 180 mg 400 unit PO DAILY 10/26/21 03/08/22 (400 unit) capsule risperidone 3 mg tablet 1 tab PO DAILY 02/03/22 03/08/22 fluoxetine 40 mg capsule 80 mg PO DAILY 02/14/22 03/08/22 Previous Rx's Medication Instructions Recorded divalproex 250 mg tablet,delayed 1,250 mg PO DAILY 30 days #150 tabs 02/25/22 release divalproex 500 mg tablet,delayed 1,500 mg PO BEDTIME 30 days #90 02/25/22 release tabs guaifenesin 100 mg/5 mL oral liquid 200 mg (10 mL) PO Q4H PRN 02/25/22 productive cough 5 days #473 mL loperamide 2 mg capsule 2 mg PO Q8H PRN loose stool 10 03/04/22 days #30 caps <Theresa Nayak NP - Last Filed: 03/09/22 02:25> Allergies/Adverse Reactions: Allergies Allergy/AdvReac Type Severity Reaction Status Date / Time No Known Allergies Allergy Verified 03/04/22 11:34 <Theresa Nayak NP - Last Filed: 03/09/22 02:25> Review of Systems Review of Systems: Constitutional: No Fever, No Chills ENT/Mouth: No Ear Pain, No Nasal Congestion, No sore throat Eyes: No Eye Pain, No Swelling, No Redness Cardiovascular: No Chest Pain, No SOB Respiratory: No Cough, No Sputum, No Dyspnea Gastrointestinal: No Nausea, No Vomiting, No Diarrhea, No Hematochezia, No Melena Genitourinary: No Dysuria, No Urinary Frequency, No Hematuria Musculoskeletal: No Myalgias Skin: No Skin Lesions, No rash Neuro: No Weakness, No Numbness, No Paresthesias, No Dizziness, No Headache Psych: positive Anxiety, positive Depression, positive aggressive behavior, no suicidal or homicidal ideation Heme/Lymph: No Lymphadenopathy Endocrine: No Polyuria, No Polydipsia <Theresa Nayak NP - Last Filed: 03/09/22 02:25> Yes all other systems are reviewed and are negative <Theresa Nayak NP - Last Filed: 03/09/22 02:25> PMFSH Past Medical History Attestation statement: The following information was validated with the patient. <Theresa Nayak NP - Last Filed: 03/09/22 02:25> Source: old records reviewed <Theresa Nayak NP - Last Filed: 03/09/22 02:25> Medical History: Medical History Anal fistula Anxiety and depression Obsessive compulsive disorder Screening for diabetes mellitus Screening for hyperlipidemia <Theresa Nayak NP - Last Filed: 03/09/22 02:25> Surgical History: Surgical History No pertinent past surgical history <Theresa Nayak NP - Last Filed: 03/09/22 02:25> Family History Family History: Family History Mother No problems noted. Father No problems noted. Other Substance use disorder <Theresa Nayak NP - Last Filed: 03/09/22 02:25> Social History Social History: Social History Household Members: Other Household Members Other:: senior care Housing: Apartment Housing Other:: senior care Do you presently have visiting nurse or other home services: No Unable to assess alcohol history related to: Unknown Alcohol intake: never Patient Tobacco Use Status: Former Tobacco user Quit Date: January 2021 Tobacco use type: Cigarette Cigarette Packs Per Day: 0.5 Cigarettes Per Day: 10.0 Years Smoked: 17 years old e-Cigarette/Vaping Use: Never Used Second Hand Smoke Exposure: No Advance Directives: No Advance Directives Information Provided: Yes service: No Current occupational status: disabled Sexual orientation: Pt stated he identifies as LGBTQA Cognitive needs: No Hearing needs: No Vision needs: No <Theresa Nayak NP - Last Filed: 03/09/22 02:25> Physical Exam Vital Signs: Vital Signs: Last Vital Signs Pulse 89 03/08/22 17:34 Resp 16 03/08/22 17:34 BP 121/80 03/08/22 17:34 Pulse Ox 99 03/08/22 17:34 O2 Del Method 03/08/22 17:34 BMI result Body Mass Index 32.2 <Theresa Nayak NP - Last Filed: 03/09/22 02:25> Vital Signs: Last Vital Signs Pulse 89 03/08/22 17:34 Resp 16 03/08/22 17:34 BP 121/80 03/08/22 17:34 Pulse Ox 99 03/08/22 17:34 O2 Del Method 03/08/22 17:34 BMI result Body Mass Index 32.2 <Rios Pierson MD - Last Filed: 03/09/22 08:45> Appearance: Alert. Oriented X3. No acute distress. Cognitive impairment. Eyes: Pupils equal, round and reactive to light. ENT: Pharynx normal. Neck: Normal inspection. Neck supple. CVS: Normal heart rate and rhythm. Pulses normal. Respiratory: No respiratory distress. Breath sounds normal. Abdomen: Soft and nontender. Skin: Skin warm and dry. Normal skin color. Normal skin turgor. Extremities: No lower extremity edema. Gait well-balanced will coordinated. Neuro: No motor deficit. No sensory deficit. Cranial nerves 2-12 intact. <Theresa Nayak NP - Last Filed: 03/09/22 02:25> Course Course Course Narrative: 42-year-old male presents via EMS under Section 12 for aggressive behavior. Will order labs and PHN consult. Patient has no physical complaints at this time. 20:16 BH and consult complete, assessment is that this behavior is attention seeking and behavioral due to his lack of coping mechanisms. Patient states that he is not getting what he wants, such as medications, attention, food, or whenever he feels that he needs at the time. director of rehabilitation will set up a meeting for behavior plan and management of attention seeking behaviors. Plan of care is to discharge home in the morning. 01:00 senior care will not accept patient back to that facility, patient will be a re-evaluation in the morning. Physician observation at this time. <Theresa Nayak NP - Last Filed: 03/09/22 02:25> Reevaluation(s) Reevaluation #1: signed out to me at 6.[address] Tyler waiting for reevauation <Rios Pierson MD - Last Filed: 03/09/22 08:45> Time: 08:45 <Rios Pierson MD - Last Filed: 03/09/22 08:45> MDM - Psych Differential Diagnosis Differential diagnosis: Likely acute psychosis and acute anxiety <Theresa Nayak NP - Last Filed: 03/09/22 02:25> Medical Records Attestation: I reviewed the patient's medical records. <Theresa Nayak NP - Last Filed: 03/09/22 02:25> Lab Data Attestation: I reviewed the patient's lab results. <Theresa Nayak NP - Last Filed: 03/09/22 02:25> Result diagrams: : 03/08/22 18:46 03/08/22 18:46 <Theresa Nayak NP - Last Filed: 03/09/22 02:25> Labs: Lab Results 03/08/22 03/08/22 03/08/22 Range/Units 18:14 18:46 18:46 WBC 9.1 (4.8-10.8) X10*3/uL RBC 4.66 (4.60-5.80) X10*6/uL Hgb 14.5 (14.0-18.0) g/dl Hct 42.3 (42.0-52.0) % MCV 90.8 (80.0-98.0) fL MCH 31.1 (27.0-33.0) pg MCHC 34.3 (31.0-36.0) g/dl RDW 12.2 (11.0-16.0) % Plt Count 271 (160-400) X10*3/uL MPV 9.6 (9.4-12.4) fL Immature Gran % (Auto) 0.7 H (0.0-0.4) % Neut % (Auto) 52.2 (45-73) % Lymph % (Auto) 33.5 (20-40) % [place] % (Auto) 11.3 H (2-11) % Eos % (Auto) 1.6 (0-4) % Baso % (Auto) 0.7 (0-2) % Lymph # (Auto) 3.1 (1.2-4.9) X10*3/uL [place] # (Auto) 1.0 (0.1-1.2) X10*3/uL Eos # (Auto) 0.2 (0.0-0.4) X10*3/uL Baso # (Auto) 0.1 (0.0-0.2) X10*3/uL Abs Immat Gran (auto) 0.06 H (0.00-0.03) X10*3/uL Absolute Neuts (auto) 4.8 (2.0-8.3) x10*3/uL Absolute Nucleated RBC 0.000 (0.0-0.012) X10*3/uL Nucleated RBC % (auto) 0.0 (0.0-0.2) /100WBC Sodium 143 (135-145) mmol/L Potassium 4.2 (3.3-5.1) mmol/L Chloride 103 (96-108) mmol/L Carbon Dioxide 30 H (22-29) mmol/L Anion Gap 14 (12-20) BUN 11 (9-16) mg/dL Creatinine 0.80 (0.5-1.4) mg/dL Estim Creat Clear Calc 159.7 Estimated GFR > 60 Random Glucose 124 H D (60-115) mg/dL Calcium 9.3 (8.4-10.2) mg/dL Urine Opiates Screen Not Detected (Not Detect) Urine Fentanyl Screen Not Detected (Not Detect) Ur Barbiturates Screen Not Detected (Not Detect) Valproic Acid (50.0-100.0) mcg/mL Ur Phencyclidine Scrn Not Detected (Not Detect) Ur Amphetamines Screen Not Detected (Not Detect) U Benzodiazepines Scrn Not Detected (Not Detect) Urine Cocaine Screen Not Detected (Not Detect) U Marijuana (THC) Screen Not Detected (Not Detect) Influenza Type A (PCR) (Negative) Influenza Type B (PCR) (Negative) RSV RNA Qual (PCR) (Negative) SARS-CoV-2 RNA (RT-PCR) (Negative) 03/08/22 03/08/22 Range/Units 18:46 18:46 WBC (4.8-10.8) X10*3/uL RBC (4.60-5.80) X10*6/uL Hgb (14.0-18.0) g/dl Hct (42.0-52.0) % MCV (80.0-98.0) fL MCH (27.0-33.0) pg MCHC (31.0-36.0) g/dl RDW (11.0-16.0) % Plt Count (160-400) X10*3/uL MPV (9.4-12.4) fL Immature Gran % (Auto) (0.0-0.4) % Neut % (Auto) (45-73) % Lymph % (Auto) (20-40) % [place] % (Auto) (2-11) % Eos % (Auto) (0-4) % Baso % (Auto) (0-2) % Lymph # (Auto) (1.2-4.9) X10*3/uL [place] # (Auto) (0.1-1.2) X10*3/uL Eos # (Auto) (0.0-0.4) X10*3/uL Baso # (Auto) (0.0-0.2) X10*3/uL Abs Immat Gran (auto) (0.00-0.03) X10*3/uL Absolute Neuts (auto) (2.0-8.3) x10*3/uL Absolute Nucleated RBC (0.0-0.012) X10*3/uL Nucleated RBC % (auto) (0.0-0.2) /100WBC Sodium (135-145) mmol/L Potassium (3.3-5.1) mmol/L Chloride (96-108) mmol/L Carbon Dioxide (22-29) mmol/L Anion Gap (12-20) BUN (9-16) mg/dL Creatinine (0.5-1.4) mg/dL Estim Creat Clear Calc Estimated GFR Random Glucose (60-115) mg/dL Calcium (8.4-10.2) mg/dL Urine Opiates Screen (Not Detect) Urine Fentanyl Screen (Not Detect) Ur Barbiturates Screen (Not Detect) Valproic Acid 64.3 (50.0-100.0) mcg/mL Ur Phencyclidine Scrn (Not Detect) Ur Amphetamines Screen (Not Detect) U Benzodiazepines Scrn (Not Detect) Urine Cocaine Screen (Not Detect) U Marijuana (THC) Screen (Not Detect) Influenza Type A (PCR) NEGATIVE (Negative) Influenza Type B (PCR) NEGATIVE (Negative) RSV RNA Qual (PCR) NEGATIVE (Negative) SARS-CoV-2 RNA (RT-PCR) NEGATIVE (Negative) <Theresa Nayak NP - Last Filed: 03/09/22 02:25> Lab Results 03/08/22 03/08/22 03/08/22 Range/Units 18:14 18:46 18:46 WBC 9.1 (4.8-10.8) X10*3/uL RBC 4.66 (4.60-5.80) X10*6/uL Hgb 14.5 (14.0-18.0) g/dl Hct 42.3 (42.0-52.0) % MCV 90.8 (80.0-98.0) fL MCH 31.1 (27.0-33.0) pg MCHC 34.3 (31.0-36.0) g/dl RDW 12.2 (11.0-16.0) % Plt Count 271 (160-400) X10*3/uL MPV 9.6 (9.4-12.4) fL Immature Gran % (Auto) 0.7 H (0.0-0.4) % Neut % (Auto) 52.2 (45-73) % Lymph % (Auto) 33.5 (20-40) % [place] % (Auto) 11.3 H (2-11) % Eos % (Auto) 1.6 (0-4) % Baso % (Auto) 0.7 (0-2) % Lymph # (Auto) 3.1 (1.2-4.9) X10*3/uL [place] # (Auto) 1.0 (0.1-1.2) X10*3/uL Eos # (Auto) 0.2 (0.0-0.4) X10*3/uL Baso # (Auto) 0.1 (0.0-0.2) X10*3/uL Abs Immat Gran (auto) 0.06 H (0.00-0.03) X10*3/uL Absolute Neuts (auto) 4.8 (2.0-8.3) x10*3/uL Absolute Nucleated RBC 0.000 (0.0-0.012) X10*3/uL Nucleated RBC % (auto) 0.0 (0.0-0.2) /100WBC Sodium 143 (135-145) mmol/L Potassium 4.2 (3.3-5.1) mmol/L Chloride 103 (96-108) mmol/L Carbon Dioxide 30 H (22-29) mmol/L Anion Gap 14 (12-20) BUN 11 (9-16) mg/dL Creatinine 0.80 (0.5-1.4) mg/dL Estim Creat Clear Calc 159.7 Estimated GFR > 60 Random Glucose 124 H D (60-115) mg/dL Calcium 9.3 (8.4-10.2) mg/dL Urine Opiates Screen Not Detected (Not Detect) Urine Fentanyl Screen Not Detected (Not Detect) Ur Barbiturates Screen Not Detected (Not Detect) Valproic Acid (50.0-100.0) mcg/mL Ur Phencyclidine Scrn Not Detected (Not Detect) Ur Amphetamines Screen Not Detected (Not Detect) U Benzodiazepines Scrn Not Detected (Not Detect) Urine Cocaine Screen Not Detected (Not Detect) U Marijuana (THC) Screen Not Detected (Not Detect) Influenza Type A (PCR) (Negative) Influenza Type B (PCR) (Negative) RSV RNA Qual (PCR) (Negative) SARS-CoV-2 RNA (RT-PCR) (Negative) 03/08/22 03/08/22 Range/Units 18:46 18:46 WBC (4.8-10.8) X10*3/uL RBC (4.60-5.80) X10*6/uL Hgb (14.0-18.0) g/dl Hct (42.0-52.0) % MCV (80.0-98.0) fL MCH (27.0-33.0) pg MCHC (31.0-36.0) g/dl RDW (11.0-16.0) % Plt Count (160-400) X10*3/uL MPV (9.4-12.4) fL Immature Gran % (Auto) (0.0-0.4) % Neut % (Auto) (45-73) % Lymph % (Auto) (20-40) % [place] % (Auto) (2-11) % Eos % (Auto) (0-4) % Baso % (Auto) (0-2) % Lymph # (Auto) (1.2-4.9) X10*3/uL [place] # (Auto) (0.1-1.2) X10*3/uL Eos # (Auto) (0.0-0.4) X10*3/uL Baso # (Auto) (0.0-0.2) X10*3/uL Abs Immat Gran (auto) (0.00-0.03) X10*3/uL Absolute Neuts (auto) (2.0-8.3) x10*3/uL Absolute Nucleated RBC (0.0-0.012) X10*3/uL Nucleated RBC % (auto) (0.0-0.2) /100WBC Sodium (135-145) mmol/L Potassium (3.3-5.1) mmol/L Chloride (96-108) mmol/L Carbon Dioxide (22-29) mmol/L Anion Gap (12-20) BUN (9-16) mg/dL Creatinine (0.5-1.4) mg/dL Estim Creat Clear Calc Estimated GFR Random Glucose (60-115) mg/dL Calcium (8.4-10.2) mg/dL Urine Opiates Screen (Not Detect) Urine Fentanyl Screen (Not Detect) Ur Barbiturates Screen (Not Detect) Valproic Acid 64.3 (50.0-100.0) mcg/mL Ur Phencyclidine Scrn (Not Detect) Ur Amphetamines Screen (Not Detect) U Benzodiazepines Scrn (Not Detect) Urine Cocaine Screen (Not Detect) U Marijuana (THC) Screen (Not Detect) Influenza Type A (PCR) NEGATIVE (Negative) Influenza Type B (PCR) NEGATIVE (Negative) RSV RNA Qual (PCR) NEGATIVE (Negative) SARS-CoV-2 RNA (RT-PCR) NEGATIVE (Negative) <Rios Pierson MD - Last Filed: 03/09/22 08:45> Discharge Plan Discharge Clinical Impression: Agitation, alcohol syndrome <Theresa Nayak NP - Last Filed: 03/09/22 02:25> Patient Disposition: Still a Patient <Theresa Nayak NP - Last Filed: 03/09/22 02:25> Prescriptions: No Action risperidone 4 mg tablet 1 tab PO BEDTIME trazodone 150 mg tablet 1 tab PO BEDTIME vitamin E (dl, acetate) 180 mg (400 unit) capsule 400 unit PO DAILY melatonin 3 mg tablet 6 mg PO BEDTIME hydroxyzine HCl 25 mg tablet 1 tab PO TID PRN (Reason: Anxiety) memantine 10 mg tablet 1 tab PO BID fluticasone propionate 50 mcg/actuation spray,suspension 1 spray intranasal BID PRN (Reason: Nasal Congestion) risperidone 3 mg tablet 1 tab PO DAILY fluoxetine 40 mg capsule 80 mg PO DAILY divalproex 250 mg Tablet,Delayed Release (Dr/Ec) 1,250 mg PO DAILY 30 Days Qty: 150 0RF divalproex 500 mg Tablet,Delayed Release (Dr/Ec) 1,500 mg PO BEDTIME 30 Days Qty: 90 0RF guaifenesin 100 mg/5 mL Liquid 200 mg PO Q4H PRN (Reason: productive cough) 5 Days Qty: 473 0RF loperamide 2 mg capsule 2 mg PO Q8H PRN (Reason: loose stool) 10 Days Qty: 30 0RF <Theresa Naayk NP - Last Filed: 03/09/22 02:25>
--- NOTE | 2022-03-08 17:57 | MHC.CARE ---
Care Team completed smart sheet.
[2022-03-08 18:52] LABS: MANUAL DIFF FLAG NO
[2022-03-08 18:55] LABS: Basophils Absolute Auto 0.1 X10*3/uL (0.0-0.2); Basophils Percent Auto 0.7 % (0-2); Eosinophils Absolute Auto 0.2 X10*3/uL (0.0-0.4); Eosinophils Percent Auto 1.6 % (0-4); Hematocrit 42.3 % (42.0-52.0); Hemoglobin 14.5 g/dl (14.0-18.0); Imm Gran Abs Auto 0.06 X10*3/uL (0.00-0.03); Imm Gran Pct Auto 0.7 % (0.0-0.4); Lymphocytes Absolute Auto 3.1 X10*3/uL (1.2-4.9); Lymphocytes Percent Auto 33.5 % (20-40); Mean Corpuscular HGB Conc 34.3 g/dl (31.0-36.0); Mean Corpuscular Hemoglobin 31.1 pg (27.0-33.0); Mean Corpuscular Volume 90.8 fL (80.0-98.0); Mean Platelet Volume 9.6 fL (9.4-12.4); Monocytes Percent Auto 11.3 % (2-11); Neutrophils Absolute Auto 4.8 x10*3/uL (2.0-8.3); Neutrophils Percent Auto 52.2 % (45-73); Platelet Count 271 X10*3/uL (160-400); Red Blood Count 4.66 X10*6/uL (4.60-5.80); Red Cell Distribution Width 12.2 % (11.0-16.0); White Blood Count 9.1 X10*3/uL (4.8-10.8)
[2022-03-08 19:13] LABS: Anion Gap 14 (12-20); Blood Urea Nitrogen 11 mg/dL (9-16); Calcium 9.3 mg/dL (8.4-10.2); Carbon Dioxide 30 mmol/L (22-29); Chloride 103 mmol/L (96-108); Creatinine Clr Calc Pharmacy 159.7; Estimated Glomerular Filt Rate > 60; Glucose Random 124 mg/dL (60-115); Potassium 4.2 mmol/L (3.3-5.1); Sodium 143 mmol/L (135-145)
[2022-03-08 19:18] LABS: Amphetamine Screen Urine Not Detected (Not Detect); Barbiturates, Urine Not Detected (Not Detect); Benzodiazepines Screen Urine Not Detected (Not Detect); Cannabinoid Screen Urine Not Detected (Not Detect); Cocaine Screen Urine Not Detected (Not Detect); Fentanyl, urine Not Detected (Not Detect); Opiate Screen Urine Not Detected (Not Detect); Phencyclidine Screen Urine Not Detected (Not Detect)
[2022-03-08 19:18] LABS: Valproate 64.3 mcg/mL (50.0-100.0)
[2022-03-08 19:31] LABS: Influenza A PCR NEGATIVE (Negative); Influenza B PCR NEGATIVE (Negative); Resp Syncy Virus RNA Qual PCR NEGATIVE (Negative); SARS COV2 PCR INHOUSE NEGATIVE (Negative)
--- NOTE | 2022-03-08 22:21 | MHC.CARE ---
CARE Team receives a call from [facility] planning consultant, Michael, who reports that she has heard back from pt's jail and they will not accept him back without a safety planning meeting. Dispo has been changed to [facility] follow up so that [facility] can coordinate a safety plan with the jail.
--- NOTE | 2022-03-09 06:42 | PC.NURSE ---
Patient slept through the night, no distress observed/reported, behavior non concerning, patient engaged well with N, disposition pending due to jail's refusal take patient back, patient will be re-evaluated by N in the morning, med rec completed/pending provider's approval, VSS, will continue to monitor.
[2022-03-09] MEDS: risperiDONE 3 MG TABLET PO (07:54)
[2022-03-09] MEDS: FLUoxetine HCl 20 MG CAPSULE 80 MG PO (07:54)
[2022-03-09] MEDS: Memantine HCl 10 MG TABLET PO ×2 (07:55→22:32)
[2022-03-09] MEDS: Divalproex Sodium 250 MG TABLET.DR 1250 MG PO (07:55)
[2022-03-09] MEDS: Divalproex Sodium 500 MG TABLET.DR 1500 MG PO (22:32)
[2022-03-09] MEDS: risperiDONE 2 MG TABLET 4 MG PO (22:32)
[2022-03-09] MEDS: traZODone HCL 50 MG TABLET 150 MG PO (22:32)
[2022-03-09] MEDS: Melatonin 3 MG TABLET 6 MG PO (22:32)
[2022-03-10 04:30] VITALS: BP 120/79; PULSE 79; RESP 16; TEMP 36.7; O2SAT 98
--- NOTE | 2022-03-10 07:17 | PC.NURSE ---
patient appears to remain asleep at present respirations are even and unlabored patient appears in no distress
[2022-03-10] MEDS: Memantine HCl 10 MG TABLET PO ×2 (09:38→20:41)
[2022-03-10] MEDS: FLUoxetine HCl 20 MG CAPSULE 80 MG PO (09:38)
[2022-03-10] MEDS: risperiDONE 3 MG TABLET PO (09:38)
[2022-03-10] MEDS: Vitamin E (Dl,Tocopheryl Acet) 180 MG (400 UNIT) CAPSULE PO (09:38)
[2022-03-10] MEDS: Divalproex Sodium 250 MG TABLET.DR 1250 MG PO (09:38)
[2022-03-10 15:14] VITALS: BP 122/82; PULSE 79; RESP 15; TEMP 37.1; O2SAT 93
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
[2022-03-10] MEDS: Divalproex Sodium 500 MG TABLET.DR 1500 MG PO (20:40)
[2022-03-10] MEDS: risperiDONE 2 MG TABLET 4 MG PO (20:41)
[2022-03-10] MEDS: Melatonin 3 MG TABLET 6 MG PO (20:41)
[2022-03-10] MEDS: traZODone HCL 50 MG TABLET 150 MG PO (20:41)
--- NOTE | 2022-03-11 06:27 | PC.NURSE ---
Patient slept through the night, no distress observed/reported, behavior non concerning, disposition per [facility] is now section 12 inpatient bed search, medication compliant, VSS, will continue to monitor.
[2022-03-11] MEDS: Divalproex Sodium 250 MG TABLET.DR 1250 MG PO (08:58)
[2022-03-11] MEDS: FLUoxetine HCl 20 MG CAPSULE 80 MG PO (08:59)
[2022-03-11] MEDS: Memantine HCl 10 MG TABLET PO ×2 (08:59→20:01)
[2022-03-11] MEDS: risperiDONE 3 MG TABLET PO (08:59)
[2022-03-11] MEDS: guaiFENesin 100 MG/5 ML LIQUID PO (09:17)
[2022-03-11] MEDS: Vitamin E (Dl,Tocopheryl Acet) 180 MG (400 UNIT) CAPSULE PO (10:15)
--- NOTE | 2022-03-11 10:16 | PC.NURSE ---
When this RN entered the room to medicate Shadi with Vitamin E tablet, pt stated I know that those [expletives] have that disease out there! I know it! This RN explained that no one has any diseases. Then yelled at this RN COME ON! MEDICATE ME DAMN IT! I stated that I will not tolerate swearing and unnecessary rude treatment/demanding behavior. Shadi then said I'm sorry and went back to sleep. During the previous medication pass this shift, patient was pleasant & cooperative. Will continue to monitor.
[2022-03-11 13:19] VITALS: RESP 16
[2022-03-11 19:51] VITALS: RESP 20
[2022-03-11] MEDS: Divalproex Sodium 500 MG TABLET.DR 1500 MG PO (19:58)
[2022-03-11] MEDS: traZODone HCL 50 MG TABLET 150 MG PO (19:59)
[2022-03-11] MEDS: risperiDONE 2 MG TABLET 4 MG PO (20:00)
[2022-03-11] MEDS: Melatonin 3 MG TABLET 6 MG PO (20:01)
[2022-03-11] MEDS: hydrOXYzine HCL 25 MG TABLET PO (20:02)
[2022-03-12 06:05] VITALS: RESP 18
--- NOTE | 2022-03-12 07:26 | PC.NURSE ---
patient appears to remain at rest at present respirations are even and unlabored paitent appears in no distress
[2022-03-12] MEDS: Divalproex Sodium 250 MG TABLET.DR 1250 MG PO (08:40)
[2022-03-12] MEDS: risperiDONE 3 MG TABLET PO (08:40)
[2022-03-12] MEDS: FLUoxetine HCl 20 MG CAPSULE 80 MG PO (08:40)
[2022-03-12] MEDS: Memantine HCl 10 MG TABLET PO ×2 (08:41→20:11)
[2022-03-12] MEDS: Vitamin E (Dl,Tocopheryl Acet) 180 MG (400 UNIT) CAPSULE PO (10:01)
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
[2022-03-12] MEDS: Melatonin 3 MG TABLET 6 MG PO (20:10)
[2022-03-12] MEDS: Divalproex Sodium 500 MG TABLET.DR 1500 MG PO (20:10)
[2022-03-12] MEDS: traZODone HCL 50 MG TABLET 150 MG PO (20:10)
[2022-03-12] MEDS: risperiDONE 2 MG TABLET 4 MG PO (20:11)
[2022-03-12 20:25] VITALS: RESP 14; TEMP 36.6
[2022-03-13] MEDS: hydrOXYzine HCL 25 MG TABLET PO (03:40)
[2022-03-13 10:08] LABS: Alanine Aminotransferase 52 U/L (0-40); Albumin Level 3.9 g/dL (3.5-5.0); Alkaline Phosphatase 63 U/L (39-117); Anion Gap 13 (12-20); Aspartate Amino Transferase 30 U/L (5-37); Bilirubin Total 0.2 mg/dL (0.0-1.0); Blood Urea Nitrogen 15 mg/dL (9-16); Calcium 9.5 mg/dL (8.4-10.2); Carbon Dioxide 29 mmol/L (22-29); Chloride 104 mmol/L (96-108); Cholesterol 196 mg/dL; Creatinine Clr Calc Pharmacy 161.7; Estimated Glomerular Filt Rate > 60; Glucose Fasting 89 mg/dL (60-99); HDL Cholesterol 32 mg/dL; LDL Cholesterol Calculated 124 mg/dl; Potassium 4.5 mmol/L (3.3-5.1); Sodium 141 mmol/L (135-145); Total Protein 6.6 g/dL (6.5-8.0); Triglycerides 200 mg/dL
[2022-03-13] MEDS: FLUoxetine HCl 20 MG CAPSULE 80 MG PO (10:12)
[2022-03-13] MEDS: Divalproex Sodium 250 MG TABLET.DR 1250 MG PO (10:12)
[2022-03-13] MEDS: Vitamin E (Dl,Tocopheryl Acet) 180 MG (400 UNIT) CAPSULE PO (10:13)
[2022-03-13] MEDS: Memantine HCl 10 MG TABLET PO ×2 (10:13→20:05)
[2022-03-13] MEDS: risperiDONE 3 MG TABLET PO (10:13)
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
[2022-03-13] MEDS: traZODone HCL 50 MG TABLET 150 MG PO (20:04)
[2022-03-13] MEDS: risperiDONE 2 MG TABLET 4 MG PO (20:05)
[2022-03-13] MEDS: Melatonin 3 MG TABLET 6 MG PO (20:05)
[2022-03-13] MEDS: Divalproex Sodium 500 MG TABLET.DR 1500 MG PO (20:05)
[2022-03-13 20:13] VITALS: RESP 14
[2022-03-14] MEDS: Divalproex Sodium 250 MG TABLET.DR 1250 MG PO (09:26)
[2022-03-14] MEDS: risperiDONE 3 MG TABLET PO (09:27)
[2022-03-14] MEDS: Vitamin E (Dl,Tocopheryl Acet) 180 MG (400 UNIT) CAPSULE PO (09:27)
[2022-03-14] MEDS: Memantine HCl 10 MG TABLET PO ×2 (09:27→20:34)
[2022-03-14] MEDS: FLUoxetine HCl 20 MG CAPSULE 80 MG PO (09:27)
[2022-03-14 09:34] VITALS: RESP 18
[2022-03-14 15:03] LABS: Ammonia 30 umol/L (13-55)
--- NOTE | 2022-03-14 15:53 | P.PNPSI_ITS ---
Subjective Subjective Date of Service: 03/14/22 Reason For Visit: aggression Interim History: pt initially agitated this morning, grabbing MD's arm and violently shaking it for 10-15 seconds despite MD's telling him repeatedly and persistently to let go. then informed pt MD would be unable to speak with him for some time, until he had calmed down. MD and social services assistant later saw pt. pt hugged MD at least twice throughout the day despite MD's admonishing pt that physical contact was not allowed (beyond a hand shake, fist bump, or elbow bump). discussed pt's frustrations with his behaviors, his rigidity around rituals in interactions with others. MD informed pt that he is on adequate medication to address whatever compnent of his behavior is addressable with mood stabilizing and neuroleptic medications. discussed the possibility that pharmacological Tx of OCD could be improved. agreed to contact prescriberHardy. per staff, outburst in [place] yesterday, yelling racial slurs. Mental Status Exam Mental Status Exam Narrative: A&O. unkempt appearance, disheveled. fair eye contact, attentive. No Tics or Tremors. activated, variably cooperative. variable speech. No prolonged speech latency or dysarthria. word-finding difficulties due to expressive aphasia. af fect is hyper-intense, labile. mood not assessed no SI/HI/AVH expressed. Insight/ Judgment limited. Diagnostics Vital Signs (24Hr): Vital Signs - 24 hr 03/13/22 20:13 03/14/22 09:34 Respiratory Rate 14 18 BMI result Body Mass Index 32.2 Labs Results: 03/08/22 18:46 03/13/22 08:55 Labs: Laboratory Results - last 48 hr 03/13/22 03/14/22 08:55 14:50 Sodium 141 Potassium 4.5 Chloride 104 Carbon Dioxide 29 Anion Gap 13 BUN 15 Creatinine 0.79 Estim Creat Clear Calc 161.7 Estimated GFR > 60 Fasting Glucose 89 Calcium 9.5 Total Bilirubin 0.2 AST 30 D ALT 52 H Alkaline Phosphatase 63 Ammonia 30 Total Protein 6.6 Albumin 3.9 Triglycerides 200 Cholesterol 196 LDL Cholesterol, Calc 124 HDL Cholesterol 32 Medications Medications Current Medications Acetaminophen (Acetaminophen 325 Mg Tablet) 650 mg PO Q6H PRN PRN Reason: Headache/Pain Mild Scale (1-3) Al Hydroxide/Mg Hydroxide (Magnesium Hydrox/Alum Hydrox 30 Ml Oral.Susp) 30 ml PO Q6H PRN PRN Reason: Heartburn/Nausea Divalproex Sodium (Divalproex Sodium 250 Mg Tablet.) 1,250 mg PO DAILY [facility] Last Admin: 03/14/22 09:26 Dose: 1,250 mg Divalproex Sodium (Divalproex Sodium 500 Mg Tablet.) 1,500 mg PO BEDTIME [facility] Last Admin: 03/13/22 20:05 Dose: 1,500 mg Fluoxetine HCl (Fluoxetine Hcl 20 Mg Capsule) 80 mg PO DAILY [facility] Last Admin: 03/14/22 09:27 Dose: 80 mg Fluticasone Propionate (Fluticasone Propionate Nasal 16 Gm [place]) 1 spray NOSTRIL-B BID PRN PRN Reason: Nasal Congestion Guaifenesin (Guaifenesin 100 Mg/5 Ml Liquid) 5 ml PO Q4H PRN PRN Reason: productive cough Last Admin: 03/11/22 09:17 Dose: 5 ml Hydroxyzine HCl (Hydroxyzine Hcl 25 Mg Tablet) 25 mg PO TID PRN PRN Reason: Anxiety Last Admin: 03/11/22 20:02 Dose: 25 mg Hydroxyzine HCl (Hydroxyzine Hcl 25 Mg Tablet) 25 mg PO Q6H PRN PRN Reason: Anxiety Last Admin: 03/13/22 03:40 Dose: 25 mg Loperamide HCl (Loperamide Hcl 2 Mg Capsule) 2 mg PO Q8H PRN PRN Reason: loose stool Magnesium Hydroxide (Milk Of Magnesia 30 Ml Oral.Susp) 30 ml PO DAILY PRN PRN Reason: Constipation Melatonin (Melatonin 3 Mg Tablet) 6 mg PO BEDTIME [facility] Last Admin: 03/13/22 20:05 Dose: 6 mg Memantine (Memantine Hcl 10 Mg Tablet) 10 mg PO BID [facility] Last Admin: 03/14/22 09:27 Dose: 10 mg Risperidone (Risperidone 3 Mg Tablet) 3 mg PO DAILY [facility] Last Admin: 03/14/22 09:27 Dose: 3 mg Risperidone (Risperidone 2 Mg Tablet) 4 mg PO BEDTIME [facility] Last Admin: 03/13/22 20:05 Dose: 4 mg Trazodone HCl (Trazodone Hcl 50 Mg Tablet) 150 mg PO BEDTIME [facility] Last Admin: 03/13/22 20:04 Dose: 150 mg Trazodone HCl (Trazodone Hcl 50 Mg Tablet) 50 mg PO BEDTIME PRN PRN Reason: Insomnia Vitamin E (Vitamin E (Dl,Tocopheryl Acet) 180 Mg (400 Unit) Capsule) 180 mg PO DAILY [facility] Last Admin: 03/14/22 09:27 Dose: 180 mg Allergies Allergies Allergy/AdvReac Type Severity Reaction Status Date / Time No Known Allergies Allergy Verified 03/04/22 11:34 Assessment & Plan Assessment & Plan (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 maintain strong boundaries. message left for Dr. Dash 03/14. I spent ___35___ minutes with the patient and/or on the patient floor today, greater than?50% of which was spent counseling/coordinating care. Reason for contiued inpatient stay Substantial Risk for: harm to others, inability to function and rapid decompensation
[2022-03-14 20:30] VITALS: BP 129/83; PULSE 75; RESP 18; TEMP 36.6; O2SAT 95
[2022-03-14] MEDS: Melatonin 3 MG TABLET 6 MG PO (20:34)
[2022-03-14] MEDS: risperiDONE 2 MG TABLET 4 MG PO (20:34)
[2022-03-14] MEDS: Divalproex Sodium 500 MG TABLET.DR 1500 MG PO (20:35)
[2022-03-14] MEDS: traZODone HCL 50 MG TABLET 150 MG PO (20:35)
[2022-03-15] MEDS: hydrOXYzine HCL 25 MG TABLET PO (00:39)
[2022-03-15] MEDS: traZODone HCL 50 MG TABLET PO (00:39)
[2022-03-15] MEDS: risperiDONE 3 MG TABLET PO (09:59)
[2022-03-15] MEDS: Vitamin E (Dl,Tocopheryl Acet) 180 MG (400 UNIT) CAPSULE PO (09:59)
[2022-03-15] MEDS: Memantine HCl 10 MG TABLET PO ×2 (09:59→20:26)
[2022-03-15] MEDS: FLUoxetine HCl 20 MG CAPSULE 80 MG PO (09:59)
[2022-03-15] MEDS: Divalproex Sodium 250 MG TABLET.DR PO (10:12)
[2022-03-15] MEDS: Divalproex Sodium 500 MG TABLET.DR 1000 MG PO (10:13)
[2022-03-15] MEDS: diazePAM 5 MG TABLET PO ×2 (15:59→20:25)
--- NOTE | 2022-03-15 18:03 | P.PNPSI_ITS ---
Subjective Subjective Date of Service: 03/15/22 Reason For Visit: aggression Interim History: pt generally hypermotoric and hyperverbal. seeking engagement with MD and SW several times during the day. met individually with pt and also during 40 min mtg with his outpt Tx team. discussion hinging on what factors have been at play the past several months which have seemed to have caused and increase in behavioral dyscontrol. pt identifies severe anxiety as leading to compulsion (or impulse?) as leading to maladaptive behavior. pt agrees to attempt to decrease baseline anxiety with scheduled benzodiazepines, valium 5 mg TID. per staff, not attending groups. touching, demanding, inappropriate. DFA. yelling and slamming doors last night. Mental Status Exam Mental Status Exam Narrative: A&O. unkempt appearance, disheveled. fair eye contact, attentive. No Tics or Tremors. activated, variably cooperative. variable speech. No prolonged speech latency or dysarthria. word-finding difficulties due to expressive aphasia. affect is hyper-intense, labile. mood not assessed no SI/HI/AVH expressed. Insight/ Judgment limited. Diagnostics Vital Signs (24Hr): Vital Signs - 24 hr 03/14/22 20:30 Temperature 97.8 F Pulse Rate 75 Respiratory Rate 18 Blood Pressure 129/83 Pulse Oximetry 95 Oxygen Delivery Method Room Air BMI result Body Mass Index 32.2 Labs Results: 03/08/22 18:46 03/13/22 08:55 Labs: Laboratory Results - last 48 hr 03/14/22 14:50 Ammonia 30 Medications Medications Current Medications Acetaminophen (Acetaminophen 325 Mg Tablet) 650 mg PO Q6H PRN PRN Reason: Headache/Pain Mild Scale (1-3) Al Hydroxide/Mg Hydroxide (Magnesium Hydrox/Alum Hydrox 30 Ml Oral.Susp) 30 ml PO Q6H PRN PRN Reason: Heartburn/Nausea Diazepam (Diazepam 5 Mg Tablet) 5 mg PO TID [facility] Last Admin: 03/15/22 15:59 Dose: 5 mg Divalproex Sodium (Divalproex Sodium 500 Mg Tablet.) 1,500 mg PO BEDTIME [facility] Last Admin: 03/14/22 20:35 Dose: 1,500 mg Divalproex Sodium (Divalproex Sodium 500 Mg Tablet.) 1,000 mg PO DAILY [facility] Last Admin: 03/15/22 10:13 Dose: 1,000 mg Divalproex Sodium (Divalproex Sodium 250 Mg Tablet.Dr) 250 mg PO DAILY [facility] Last Admin: 03/15/22 10:12 Dose: 250 mg Fluoxetine HCl (Fluoxetine Hcl 20 Mg Capsule) 80 mg PO DAILY [facility] Last Admin: 03/15/22 09:59 Dose: 80 mg Fluticasone Propionate (Fluticasone Propionate Nasal 16 Gm [place]) 1 spray NOSTRIL-B BID PRN PRN Reason: Nasal Congestion Guaifenesin (Guaifenesin 100 Mg/5 Ml Liquid) 5 ml PO Q4H PRN PRN Reason: productive cough Last Admin: 03/11/22 09:17 Dose: 5 ml Hydroxyzine HCl (Hydroxyzine Hcl 25 Mg Tablet) 25 mg PO TID PRN PRN Reason: Anxiety Last Admin: 03/11/22 20:02 Dose: 25 mg Hydroxyzine HCl (Hydroxyzine Hcl 25 Mg Tablet) 25 mg PO Q6H PRN PRN Reason: Anxiety Last Admin: 03/15/22 00:39 Dose: 25 mg Loperamide HCl (Loperamide Hcl 2 Mg Capsule) 2 mg PO Q8H PRN PRN Reason: loose stool Magnesium Hydroxide (Milk Of Magnesia 30 Ml Oral.Susp) 30 ml PO DAILY PRN PRN Reason: Constipation Melatonin (Melatonin 3 Mg Tablet) 6 mg PO BEDTIME [facility] Last Admin: 03/14/22 20:34 Dose: 6 mg Memantine (Memantine Hcl 10 Mg Tablet) 10 mg PO BID [facility] Last Admin: 03/15/22 09:59 Dose: 10 mg Risperidone (Risperidone 3 Mg Tablet) 3 mg PO DAILY [facility] Last Admin: 03/15/22 09:59 Dose: 3 mg Risperidone (Risperidone 2 Mg Tablet) 4 mg PO BEDTIME [facility] Last Admin: 03/14/22 20:34 Dose: 4 mg Trazodone HCl (Trazodone Hcl 50 Mg Tablet) 150 mg PO BEDTIME [facility] Last Admin: 03/14/22 20:35 Dose: 150 mg Trazodone HCl (Trazodone Hcl 50 Mg Tablet) 50 mg PO BEDTIME PRN PRN Reason: Insomnia Last Admin: 03/15/22 00:39 Dose: 50 mg Vitamin E (Vitamin E (Dl,Tocopheryl Acet) 180 Mg (400 Unit) Capsule) 180 mg PO DAILY [facility] Last Admin: 03/15/22 09:59 Dose: 180 mg Allergies Allergies Allergy/AdvReac Type Severity Reaction Status Date / Time No Known Allergies Allergy Verified 03/04/22 11:34 Assessment & Plan Assessment & Plan (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 maintain strong boundaries. message left for Dr. Dash 03/14. 03/15: no call-back from vij[facility]. mtg held with other outpt treaters. add valium 5 mg TID for anxiety. I spent ___70___ minutes with the patient and/or on the patient floor today, g reater than?50% of which was spent counseling/coordinating care. Reason for contiued inpatient stay Substantial Risk for: harm to self, harm to others, inability to function and med/psych decompensation
[2022-03-15] MEDS: Melatonin 3 MG TABLET 6 MG PO (20:25)
[2022-03-15] MEDS: risperiDONE 2 MG TABLET 4 MG PO (20:25)
[2022-03-15] MEDS: Divalproex Sodium 500 MG TABLET.DR 1500 MG PO (20:26)
[2022-03-15] MEDS: traZODone HCL 50 MG TABLET 150 MG PO (20:26)
[2022-03-15 20:53] VITALS: RESP 14; TEMP 36.6
[2022-03-16 09:30] VITALS: BP 128/84; PULSE 88; RESP 18; TEMP 36.3; O2SAT 98
--- NOTE | 2022-03-16 10:12 | P.PNPSI_ITS ---
Subjective Subjective Date of Service: 03/16/22 Reason For Visit: aggression Interim History: pt is slightly calmer today although repeatedly tried to engage TW and extend interview. pt identifies severe anxiety as leading to compulsion (or impulse?) as leading to maladaptive behavior. pt tolerating scheduled benzodiazepines, valium 5 mg TID and appears to benefit. per staff, not attending groups. touching, demanding, inappropriate. DFA. No yelling and slamming doors kee 24 hours Medication Compliance: Yes Side effects from medications: No Attending Groups: No Review of Systems Review of Systems Constitutional: No Fever, No Chills ENT/Mouth: No Ear Pain, No Nasal Congestion, No sore throat Eyes: No Eye Pain, No Swelling, No Redness Cardiovascular: No Chest Pain, No SOB Respiratory: No Cough, No Sputum, No Dyspnea Gastrointestinal: No Nausea, No Vomiting, No Diarrhea, No Hematochezia, No Melena Genitourinary: No Dysuria, No Urinary Frequency, No Hematuria Musculoskeletal: No Myalgias Skin: No Skin Lesions, No rash Neuro: No Weakness, No Numbness, No Paresthesias, No Dizziness, No Headache Psych: positive Anxiety, positive Depression, positive aggressive behavior, no suicidal or homicidal ideation Heme/Lymph: No Lymphadenopathy Endocrine: No Polyuria, No Polydipsia Yes all other systems are reviewed and are negative Mental Status Exam Mental Status Exam Narrative: A&O. unkempt appearance, disheveled. fair eye contact, attentive. No Tics or Tremors. activated, variably cooperative. variable speech. No prolonged speech latency or dysarthria. word-finding difficulties due to expressive aphasia. affect is hyper-intense, labile. mood not assessed no SI/HI/AVH expressed. Insight/ Judgment limited. Diagnostics Vital Signs (24Hr): Vital Signs - 24 hr 03/15/22 20:53 Temperature 97.8 F Respiratory Rate 14 BMI result Body Mass Index 32.2 Labs Results: 03/08/22 18:46 03/13/22 08:55 Labs: Laboratory Results - last 48 hr 03/14/22 14:50 Ammonia 30 Medications Medications Current Medications Acetaminophen (Acetaminophen 325 Mg Tablet) 650 mg PO Q6H PRN PRN Reason: Headache/Pain Mild Scale (1-3) Al Hydroxide/Mg Hydroxide (Magnesium Hydrox/Alum Hydrox 30 Ml Oral.Susp) 30 ml PO Q6H PRN PRN Reason: Heartburn/Nausea Diazepam (Diazepam 5 Mg Tablet) 5 mg PO TID [facility] Last Admin: 03/15/22 20:25 Dose: 5 mg Divalproex Sodium (Divalproex Sodium 500 Mg Tablet.) 1,500 mg PO BEDTIME [facility] Last Admin: 03/15/22 20:26 Dose: 1,500 mg Divalproex Sodium (Divalproex Sodium 500 Mg Tablet.) 1,000 mg PO DAILY [facility] Last Admin: 03/15/22 10:13 Dose: 1,000 mg Divalproex Sodium (Divalproex Sodium 250 Mg Tablet.) 250 mg PO DAILY [facility] Last Admin: 03/15/22 10:12 Dose: 250 mg Fluoxetine HCl (Fluoxetine Hcl 20 Mg Capsule) 80 mg PO DAILY [facility] Last Admin: 03/15/22 09:59 Dose: 80 mg Fluticasone Propionate (Fluticasone Propionate Nasal 16 Gm [place]) 1 spray NOSTRIL-B BID PRN PRN Reason: Nasal Congestion Guaifenesin (Guaifenesin 100 Mg/5 Ml Liquid) 5 ml PO Q4H PRN PRN Reason: productive cough Last Admin: 03/11/22 09:17 Dose: 5 ml Hydroxyzine HCl (Hydroxyzine Hcl 25 Mg Tablet) 25 mg PO TID PRN PRN Reason: Anxiety Last Admin: 03/11/22 20:02 Dose: 25 mg Hydroxyzine HCl (Hydroxyzine Hcl 25 Mg Tablet) 25 mg PO Q6H PRN PRN Reason: Anxiety Last Admin: 03/15/22 00:39 Dose: 25 mg Loperamide HCl (Loperamide Hcl 2 Mg Capsule) 2 mg PO Q8H PRN PRN Reason: loose stool Magnesium Hydroxide (Milk Of Magnesia 30 Ml Oral.Susp) 30 ml PO DAILY PRN PRN Reason: Constipation Melatonin (Melatonin 3 Mg Tablet) 6 mg PO BEDTIME [facility] Last Admin: 03/15/22 20:25 Dose: 6 mg Memantine (Memantine Hcl 10 Mg Tablet) 10 mg PO BID [facility] Last Admin: 03/15/22 20:26 Dose: 10 mg Risperidone (Risperidone 3 Mg Tablet) 3 mg PO DAILY [facility] Last Admin: 03/15/22 09:59 Dose: 3 mg Risperidone (Risperidone 2 Mg Tablet) 4 mg PO BEDTIME [facility] Last Admin: 03/15/22 20:25 Dose: 4 mg Trazodone HCl (Trazodone Hcl 50 Mg Tablet) 150 mg PO BEDTIME [facility] Last Admin: 03/15/22 20:26 Dose: 150 mg Trazodone HCl (Trazodone Hcl 50 Mg Tablet) 50 mg PO BEDTIME PRN PRN Reason: Insomnia Last Admin: 03/15/22 00:39 Dose: 50 mg Vitamin E (Vitamin E (Dl,Tocopheryl Acet) 180 Mg (400 Unit) Capsule) 180 mg PO DAILY [facility] Last Admin: 03/15/22 09:59 Dose: 180 mg Allergies Allergies Allergy/AdvReac Type Severity Reaction Status Date / Time No Known Allergies Allergy Verified 03/04/22 11:34 Assessment & Plan Assessment & Plan (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 maintain strong boundaries. message left for Dr. Dash 03/14. 03/15: no call-back from [facility]. mtg held with other outpt treaters. add valium 5 mg TID for anxiety. 03/16 Continue current treatment plan I spent __15____ minutes with the patient and/or on the patient floor today, greater than?50% of which was spent counseling/coordinating care. Reason for contiued inpatient stay Substantial Risk for: harm to others, inability to function and rapid decompensation
[2022-03-16] MEDS: Vitamin E (Dl,Tocopheryl Acet) 180 MG (400 UNIT) CAPSULE PO (10:25)
[2022-03-16] MEDS: FLUoxetine HCl 20 MG CAPSULE 80 MG PO (10:25)
[2022-03-16] MEDS: Divalproex Sodium 250 MG TABLET.DR PO (10:26)
[2022-03-16] MEDS: Divalproex Sodium 500 MG TABLET.DR 1000 MG PO (10:32)
[2022-03-16] MEDS: diazePAM 5 MG TABLET PO ×3 (10:34→20:12)
[2022-03-16] MEDS: Memantine HCl 10 MG TABLET PO ×2 (10:34→20:12)
[2022-03-16] MEDS: risperiDONE 3 MG TABLET PO (10:35)
[2022-03-16 20:09] VITALS: BP 139/86; PULSE 87; TEMP 36.6; O2SAT 96
[2022-03-16] MEDS: traZODone HCL 50 MG TABLET 150 MG PO (20:11)
[2022-03-16] MEDS: risperiDONE 2 MG TABLET 4 MG PO (20:12)
[2022-03-16] MEDS: Divalproex Sodium 500 MG TABLET.DR 1500 MG PO (20:12)
[2022-03-16] MEDS: Melatonin 3 MG TABLET 6 MG PO (20:12)
[2022-03-17 09:45] VITALS: BP 140/76; PULSE 84; RESP 18; TEMP 36.6; O2SAT 97
[2022-03-17] MEDS: Divalproex Sodium 500 MG TABLET.DR 1000 MG PO (10:08)
[2022-03-17] MEDS: Vitamin E (Dl,Tocopheryl Acet) 180 MG (400 UNIT) CAPSULE PO (10:09)
[2022-03-17] MEDS: diazePAM 5 MG TABLET PO ×3 (10:09→22:30)
[2022-03-17] MEDS: Divalproex Sodium 250 MG TABLET.DR PO (10:09)
[2022-03-17] MEDS: FLUoxetine HCl 20 MG CAPSULE 80 MG PO (10:10)
[2022-03-17] MEDS: Memantine HCl 10 MG TABLET PO ×2 (10:10→22:32)
[2022-03-17] MEDS: risperiDONE 3 MG TABLET PO (10:10)
--- NOTE | 2022-03-17 19:29 | P.PNPSI_ITS ---
Subjective Subjective Date of Service: 03/17/22 Reason For Visit: aggression Interim History: pt anxious, slightly pressured speech, moving quickly, contnued to engage TW and extend interview. pt has rash on back- hes unable to say when it statted or if he has ever had before; has not showered or change bed sheets so he agreed to do both. hospitalist consult ordered to eval back. Pt declined cortisone cream at this time. pt identifies severe anxiety as leading to compulsion (or impulse?) as leading to maladaptive behavior. Pt states the valium is helping but the OCD is still there per his words. not attending groups. touching, demanding, inappropriate. DFA. No yelling and slamming doors kee 24 hours Medication Compliance: Yes Side effects from medications: No Attending Groups: No Review of Systems Acute medical concerns: Yes rash on back, no fever, chills Review of Systems: see above Review of Systems Review of Systems Constitutional: No Fever, No Chills ENT/Mouth: No Ear Pain, No Nasal Congestion, No sore throat Eyes: No Eye Pain, No Swelling, No Redness Cardiovascular: No Chest Pain, No SOB Respiratory: No Cough, No Sputum, No Dyspnea Gastrointestinal: No Nausea, No Vomiting, No Diarrhea, No Hematochezia, No Melena Genitourinary: No Dysuria, No Urinary Frequency, No Hematuria Musculoskeletal: No Myalgias Skin: rash/lesionson back Neuro: No Weakness, No Numbness, No Paresthesias, No Dizziness, No Headache Psych: positive Anxiety, positive Depression, positive aggressive behavior, no suicidal or homicidal ideation Heme/Lymph: No Lymphadenopathy Endocrine: No Polyuria, No Polydipsia Yes all other systems are reviewed and are negative Mental Status Exam Mental Status Exam Narrative: A&O. unkempt appearance, disheveled. fair eye contact, attentive. No Tics or Tremors. activated, variably cooperative. variable speech. No prolonged speech latency or dysarthria. word-finding difficulties due to expressive aphasia. affect is hyper-intense, labile. mood not assessed no SI/HI/AVH expressed. Insight/ Judgment limited. Diagnostics Vital Signs (24Hr): Vital Signs - 24 hr 03/17/22 09:45 Temperature 97.8 F Pulse Rate 84 Respiratory Rate 18 Blood Pressure 140/76 H Pulse Oximetry 97 Oxygen Delivery Method Room Air BMI result Body Mass Index 32.2 Labs Results: 03/08/22 18:46 03/13/22 08:55 Medications Medications Current Medications Acetaminophen (Acetaminophen 325 Mg Tablet) 650 mg PO Q6H PRN PRN Reason: Headache/Pain Mild Scale (1-3) Al Hydroxide/Mg Hydroxide (Magnesium Hydrox/Alum Hydrox 30 Ml Oral.Susp) 30 ml PO Q6H PRN PRN Reason: Heartburn/Nausea Diazepam (Diazepam 5 Mg Tablet) 5 mg PO TID [facility] Last Admin: 03/17/22 15:06 Dose: 5 mg Divalproex Sodium (Divalproex Sodium 500 Mg Tablet.) 1,500 mg PO BEDTIME [facility] Last Admin: 03/16/22 20:12 Dose: 1,500 mg Divalproex Sodium (Divalproex Sodium 500 Mg Tablet.) 1,000 mg PO DAILY [facility] Last Admin: 03/17/22 10:08 Dose: 1,000 mg Divalproex Sodium (Divalproex Sodium 250 Mg Tablet.) 250 mg PO DAILY [facility] Last Admin: 03/17/22 10:09 Dose: 250 mg Fluoxetine HCl (Fluoxetine Hcl 20 Mg Capsule) 80 mg PO DAILY [facility] Last Admin: 03/17/22 10:10 Dose: 80 mg Fluticasone Propionate (Fluticasone Propionate Nasal 16 Gm [place]) 1 spray NOSTRIL-B BID PRN PRN Reason: Nasal Congestion Guaifenesin (Guaifenesin 100 Mg/5 Ml Liquid) 5 ml PO Q4H PRN PRN Reason: productive cough Last Admin: 03/11/22 09:17 Dose: 5 ml Hydroxyzine HCl (Hydroxyzine Hcl 25 Mg Tablet) 25 mg PO TID PRN PRN Reason: Anxiety Last Admin: 03/11/22 20:02 Dose: 25 mg Hydroxyzine HCl (Hydroxyzine Hcl 25 Mg Tablet) 25 mg PO Q6H PRN PRN Reason: Anxiety Last Admin: 03/15/22 00:39 Dose: 25 mg Loperamide HCl (Loperamide Hcl 2 Mg Capsule) 2 mg PO Q8H PRN PRN Reason: loose stool Magnesium Hydroxide (Milk Of Magnesia 30 Ml Oral.Susp) 30 ml PO DAILY PRN PRN Reason: Constipation Melatonin (Melatonin 3 Mg Tablet) 6 mg PO BEDTIME [facility] Last Admin: 03/16/22 20:12 Dose: 6 mg Memantine (Memantine Hcl 10 Mg Tablet) 10 mg PO BID [facility] Last Admin: 03/17/22 10:10 Dose: 10 mg Risperidone (Risperidone 3 Mg Tablet) 3 mg PO DAILY [facility] Last Admin: 03/17/22 10:10 Dose: 3 mg Risperidone (Risperidone 2 Mg Tablet) 4 mg PO BEDTIME [facility] Last Admin: 03/16/22 20:12 Dose: 4 mg Trazodone HCl (Trazodone Hcl 50 Mg Tablet) 150 mg PO BEDTIME [facility] Last Admin: 03/16/22 20:11 Dose: 150 mg Trazodone HCl (Trazodone Hcl 50 Mg Tablet) 50 mg PO BEDTIME PRN PRN Reason: Insomnia Last Admin: 03/15/22 00:39 Dose: 50 mg Vitamin E (Vitamin E (Dl,Tocopheryl Acet) 180 Mg (400 Unit) Capsule) 180 mg PO DAILY [facility] Last Admin: 03/17/22 10:09 Dose: 180 mg Allergies Allergies Allergy/AdvReac Type Severity Reaction Status Date / Time No Known Allergies Allergy Verified 03/04/22 11:34 Assessment & Plan Assessment & Plan (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 maintain strong boundaries. message left for Dr. Dash 03/14. 03/15: no call-back from [facility]ij[facility]. mtg held with other outpt treaters. add valium 5 mg TID for anxiety. 03/16 Continue current treatment plan 03/17 hospitalist consult to eval and treat back rash/lesions I spent __30____ minutes with the patient and/or on the patient floor today, greater than?50% of which was spent counseling/coordinating care. Reason for contiued inpatient stay Substantial Risk for: harm to self, harm to others, inability to function and rapid decompensation
[2022-03-17 19:50] VITALS: PULSE 64; RESP 16; TEMP 36.4; O2SAT 95
[2022-03-17] MEDS: traZODone HCL 50 MG TABLET 150 MG PO (22:29)
[2022-03-17] MEDS: risperiDONE 2 MG TABLET 4 MG PO (22:30)
[2022-03-17] MEDS: Divalproex Sodium 500 MG TABLET.DR 1500 MG PO (22:30)
[2022-03-17] MEDS: Melatonin 3 MG TABLET 6 MG PO (22:31)
[2022-03-18] MEDS: FLUoxetine HCl 20 MG CAPSULE 80 MG PO (10:11)
[2022-03-18] MEDS: Divalproex Sodium 500 MG TABLET.DR 1000 MG PO (10:12)
[2022-03-18] MEDS: Divalproex Sodium 250 MG TABLET.DR PO (10:12)
[2022-03-18] MEDS: diazePAM 5 MG TABLET PO ×3 (10:12→20:17)
[2022-03-18] MEDS: risperiDONE 3 MG TABLET PO (10:12)
[2022-03-18] MEDS: Vitamin E (Dl,Tocopheryl Acet) 180 MG (400 UNIT) CAPSULE PO (10:12)
[2022-03-18] MEDS: Memantine HCl 10 MG TABLET PO ×2 (10:12→20:16)
[2022-03-18] MEDS: diazePAM 2 MG TABLET PO ×2 (15:01→20:16)
[2022-03-18] MEDS: Melatonin 3 MG TABLET 6 MG PO (20:15)
[2022-03-18] MEDS: traZODone HCL 50 MG TABLET 150 MG PO (20:16)
[2022-03-18] MEDS: risperiDONE 2 MG TABLET 4 MG PO (20:17)
[2022-03-18] MEDS: Divalproex Sodium 500 MG TABLET.DR 1500 MG PO (20:17)
--- NOTE | 2022-03-18 22:40 | P.PNPSI_ITS ---
Subjective Subjective Date of Service: 03/18/22 Reason For Visit: aggression Interim History: pt's behavior remains stable. discussion held with outpt prescriber vijaya, then reviewed with pt. will begin to taper VPA and pursue trial of valium for anxiety/OCD Sx. per staff, isolative to room. feels numb. mild depression. denies SI/HI/AVH. wants meds at 8 pm exactly, gets verbally aggressive if he doesn't get them at exactly 8 pm. Mental Status Exam Mental Status Exam Narrative: A&O. unkempt appearance, disheveled. fair eye contact, attentive. No Tics or Tremors. activated, variably cooperative. variable speech. No prolonged speech latency or dysarthria. word-finding difficulties due to expressive aphasia. affect is hyper-intense, labile. mood not assessed no SI/HI/AVH expressed. Insight/ Judgment limited. Diagnostics Vital Signs (24Hr): BMI result Body Mass Index 32.2 Labs Results: 03/08/22 18:46 03/13/22 08:55 Medications Medications Current Medications Acetaminophen (Acetaminophen 325 Mg Tablet) 650 mg PO Q6H PRN PRN Reason: Headache/Pain Mild Scale (1-3) Al Hydroxide/Mg Hydroxide (Magnesium Hydrox/Alum Hydrox 30 Ml Oral.Susp) 30 ml PO Q6H PRN PRN Reason: Heartburn/Nausea Diazepam (Diazepam 5 Mg Tablet) 5 mg PO TID [facility] [place] Last Admin: 03/18/22 20:17 Dose: 5 mg Diazepam (Diazepam 2 Mg Tablet) 2 mg PO TID [facility] [place] Last Admin: 03/18/22 20:16 Dose: 2 mg Divalproex Sodium (Divalproex Sodium 500 Mg Tablet.) 1,500 mg PO BEDTIME [facility] [place] Last Admin: 03/18/22 20:17 Dose: 1,500 mg Divalproex Sodium (Divalproex Sodium 250 Mg Tablet.) 750 mg PO DAILY [facility] [place] Fluoxetine HCl (Fluoxetine Hcl 20 Mg Capsule) 80 mg PO DAILY [facility] [place] Last Admin: 03/18/22 10:11 Dose: 80 mg Fluticasone Propionate (Fluticasone Propionate Nasal 16 Gm [place]) 1 spray NOSTRIL-B BID PRN PRN Reason: Nasal Congestion Guaifenesin (Guaifenesin 100 Mg/5 Ml Liquid) 5 ml PO Q4H PRN PRN Reason: productive cough Last Admin: 03/11/22 09:17 Dose: 5 ml Hydroxyzine HCl (Hydroxyzine Hcl 25 Mg Tablet) 25 mg PO TID PRN PRN Reason: Anxiety Last Admin: 03/11/22 20:02 Dose: 25 mg Hydroxyzine HCl (Hydroxyzine Hcl 25 Mg Tablet) 25 mg PO Q6H PRN PRN Reason: Anxiety Last Admin: 03/15/22 00:39 Dose: 25 mg Loperamide HCl (Loperamide Hcl 2 Mg Capsule) 2 mg PO Q8H PRN PRN Reason: loose stool Magnesium Hydroxide (Milk Of Magnesia 30 Ml Oral.Susp) 30 ml PO DAILY PRN PRN Reason: Constipation Melatonin (Melatonin 3 Mg Tablet) 6 mg PO BEDTIME [facility] [place] Last Admin: 03/18/22 20:15 Dose: 6 mg Memantine (Memantine Hcl 10 Mg Tablet) 10 mg PO BID [facility] [place] Last Admin: 03/18/22 20:16 Dose: 10 mg Risperidone (Risperidone 3 Mg Tablet) 3 mg PO DAILY [facility] [place] Last Admin: 03/18/22 10:12 Dose: 3 mg Risperidone (Risperidone 2 Mg Tablet) 4 mg PO BEDTIME [facility] [place] Last Admin: 03/18/22 20:17 Dose: 4 mg Trazodone HCl (Trazodone Hcl 50 Mg Tablet) 150 mg PO BEDTIME [facility] [place] Last Admin: 03/18/22 20:16 Dose: 150 mg Trazodone HCl (Trazodone Hcl 50 Mg Tablet) 50 mg PO BEDTIME PRN PRN Reason: Insomnia Last Admin: 03/15/22 00:39 Dose: 50 mg Vitamin E (Vitamin E (Dl,Tocopheryl Acet) 180 Mg (400 Unit) Capsule) 180 mg PO DAILY [facility] [place] Last Admin: 03/18/22 10:12 Dose: 180 mg Allergies Allergies Allergy/AdvReac Type Severity Reaction Status Date / Time No Known Allergies Allergy Verified 03/04/22 11:34 Assessment & Plan Assessment & Plan (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 maintain strong boundaries. message left for Dr. Dash 03/14. 03/15: no call-back from vijaya. mtg held with other outpt treaters. add valium 5 mg TID for anxiety. 03/16 Continue current treatment plan 03/17 hospitalist consult to eval and treat back rash/lesions 03/18: increase valium to 7 mg TID for anxiety. decrease VPA by 500 mg daily, from 2750 to 2250. I spent ___35___ minutes with the patient and/or on the patient floor today, greater than?50% of which was spent counseling/coordinating care. Reason for contiued inpatient stay Substantial Risk for: harm to self, harm to others, inability to function and med/psych decompensation
[2022-03-19] MEDS: diazePAM 5 MG TABLET PO ×3 (10:28→20:07)
[2022-03-19] MEDS: FLUoxetine HCl 20 MG CAPSULE 80 MG PO (10:28)
[2022-03-19] MEDS: Memantine HCl 10 MG TABLET PO ×2 (10:29→20:06)
[2022-03-19] MEDS: risperiDONE 3 MG TABLET PO (10:30)
[2022-03-19] MEDS: Vitamin E (Dl,Tocopheryl Acet) 180 MG (400 UNIT) CAPSULE PO (10:30)
[2022-03-19] MEDS: diazePAM 2 MG TABLET PO ×3 (10:31→20:06)
[2022-03-19] MEDS: Divalproex Sodium 250 MG TABLET.DR 750 MG PO (10:31)
--- NOTE | 2022-03-19 17:16 | HO.PM.IMCN ---
History of Present Illness Data of Consult Service Date: 03/19/22 Requesting physician: Kenia Manuel Primary Care Provider: Unknown Physician HPI Reason for consult: rash 42-year-old male with history of anxiety and depression as well as obsessive compulsive disorder admitted to Psychiatry for agitation with consult placed for evaluation of rash. The patient states he has had a recurrent rash on his back that has been ongoing for several years and has followed with outpatient providers for. He states this is not new. Denies any pruritus, drainage, fever, chills. Review of Systems Review of Systems: General: No fevers, malaise, unintentional weight loss Cardiovascular: No chest pain, palpitations, or leg edema Respiratory: No shortness of breath, wheezing, cough MSK: No myalgia, back pain Skin: No rashes or lesions PMFSH Medical History Anal fistula Anxiety and depression Obsessive compulsive disorder Screening for diabetes mellitus Screening for hyperlipidemia Family History Mother No problems noted. Father No problems noted. Other Substance use disorder Surgical History No pertinent past surgical history Social History Household Members: Other Household Members Other:: shelter Housing: Apartment Housing Other:: [facility] Do you presently have visiting nurse or other home services: No Unable to assess alcohol history related to: Unknown Alcohol intake: never Patient Tobacco Use Status: Former Tobacco user Quit Date: January 2021 Tobacco use type: Cigarette Cigarette Packs Per Day: 0.5 Cigarettes Per Day: 10.0 Years Smoked: 17 years old Smoked in Last 30 Days: Yes e-Cigarette/Vaping Use: Never Used Second Hand Smoke Exposure: Yes Use of substances other than those prescribed or required for medical reasons: No Currently Displaying Signs/Symptoms of Drug Intoxication Withdrawal: No Have you been hit, kicked, punched, or otherwise hurt by someone within the past year? If so, by whom?: No Do you feel safe in your current relationship?: No Current Relationship Is there a partner from a previous relationship who is making you feel unsafe now?: No Are you made to feel afraid or neglected: No Advance Directives: No Advance Directives Information Provided: Yes Do you have thoughts of harming others: None Do you have a plan to hurt others: No Plan Recently lost weight without trying: No Eating poorly because of decreased appetite: No Nutrition Risks: No Nutritional Risk Poor oral hygiene: No service: No Current occupational status: disabled Sexual orientation: Straight/Heterosexual Cognitive needs: No Hearing needs: No Vision needs: No Meds Allergies Allergy/AdvReac Type Severity Reaction Status Date / Time No Known Allergies Allergy Verified 03/04/22 11:34 Active Medications: Current Medications Acetaminophen (Acetaminophen 325 Mg Tablet) 650 mg PO Q6H PRN PRN Reason: Headache/Pain Mild Scale (1-3) Al Hydroxide/Mg Hydroxide (Magnesium Hydrox/Alum Hydrox 30 Ml Oral.Susp) 30 ml PO Q6H PRN PRN Reason: Heartburn/Nausea Diazepam (Diazepam 5 Mg Tablet) 5 mg PO TID [facility] Last Admin: 03/19/22 14:28 Dose: 5 mg Diazepam (Diazepam 2 Mg Tablet) 2 mg PO TID [facility] Last Admin: 03/19/22 14:28 Dose: 2 mg Divalproex Sodium (Divalproex Sodium 500 Mg Tablet.) 1,500 mg PO BEDTIME [facility] Last Admin: 03/18/22 20:17 Dose: 1,500 mg Divalproex Sodium (Divalproex Sodium 250 Mg Tablet.) 750 mg PO DAILY [facility] Last Admin: 03/19/22 10:31 Dose: 750 mg Fluoxetine HCl (Fluoxetine Hcl 20 Mg Capsule) 80 mg PO DAILY [facility] Last Admin: 03/19/22 10:28 Dose: 80 mg Fluticasone Propionate (Fluticasone Propionate Nasal 16 Gm [place]) 1 spray NOSTRIL-B BID PRN PRN Reason: Nasal Congestion Guaifenesin (Guaifenesin 100 Mg/5 Ml Liquid) 5 ml PO Q4H PRN PRN Reason: productive cough Last Admin: 03/11/22 09:17 Dose: 5 ml Hydroxyzine HCl (Hydroxyzine Hcl 25 Mg Tablet) 25 mg PO TID PRN PRN Reason: Anxiety Last Admin: 03/11/22 20:02 Dose: 25 mg Hydroxyzine HCl (Hydroxyzine Hcl 25 Mg Tablet) 25 mg PO Q6H PRN PRN Reason: Anxiety Last Admin: 03/15/22 00:39 Dose: 25 mg Loperamide HCl (Loperamide Hcl 2 Mg Capsule) 2 mg PO Q8H PRN PRN Reason: loose stool Magnesium Hydroxide (Milk Of Magnesia 30 Ml Oral.Susp) 30 ml PO DAILY PRN PRN Reason: Constipation Melatonin (Melatonin 3 Mg Tablet) 6 mg PO BEDTIME [facility] Last Admin: 03/18/22 20:15 Dose: 6 mg Memantine (Memantine Hcl 10 Mg Tablet) 10 mg PO BID [facility] Last Admin: 03/19/22 10:29 Dose: 10 mg Risperidone (Risperidone 3 Mg Tablet) 3 mg PO DAILY [facility] Last Admin: 03/19/22 10:30 Dose: 3 mg Risperidone (Risperidone 2 Mg Tablet) 4 mg PO BEDTIME [facility] Last Admin: 03/18/22 20:17 Dose: 4 mg Trazodone HCl (Trazodone Hcl 50 Mg Tablet) 150 mg PO BEDTIME [facility] Last Admin: 03/18/22 20:16 Dose: 150 mg Trazodone HCl (Trazodone Hcl 50 Mg Tablet) 50 mg PO BEDTIME PRN PRN Reason: Insomnia Last Admin: 03/15/22 00:39 Dose: 50 mg Vitamin E (Vitamin E (Dl,Tocopheryl Acet) 180 Mg (400 Unit) Capsule) 180 mg PO DAILY [facility] Last Admin: 03/19/22 10:30 Dose: 180 mg Home Medications Medication Instructions Recorded Confirmed Last Taken Type fluticasone propionate 50 1 spray intranasal BID PRN Nasal 10/26/21 03/08/22 Unknown History mcg/actuation nasal Congestion spray,suspension hydroxyzine HCl 25 mg tablet 1 tab PO TID PRN Anxiety 10/26/21 03/08/22 Unknown History melatonin 3 mg tablet 6 mg PO BEDTIME 10/26/21 03/08/22 02/02/22 History memantine 10 mg tablet 1 tab PO BID 10/26/21 03/08/22 02/03/22 History risperidone 4 mg tablet 1 tab PO BEDTIME 10/26/21 03/08/22 02/02/22 History trazodone 150 mg tablet 1 tab PO BEDTIME 10/26/21 03/08/22 02/02/22 History vitamin E (dl, acetate) 180 mg 400 unit PO DAILY 10/26/21 03/08/22 02/03/22 History (400 unit) capsule risperidone 3 mg tablet 1 tab PO DAILY 02/03/22 03/08/22 02/03/22 History fluoxetine 40 mg capsule 80 mg PO DAILY 02/14/22 03/08/22 Unknown History Physical Exam Vital Signs and Narrative: Vital Signs: Last Vital Signs Temp 97.6 F 03/17/22 19:50 Pulse 64 03/17/22 19:50 Resp 16 03/17/22 19:50 BP 140/76 H 03/17/22 09:45 Pulse Ox 95 03/17/22 19:50 O2 Del Method 03/17/22 19:50 BMI result Body Mass Index 32.2 Constitutional - Awake and Alert, No apparent distress Eyes - PERRLA, EOMI Cardiovascular - S1S2, RRR, No edema Respiratory - Normal lung expansion, Normal respiratory effort, No respiratory distress, CTA bilaterally Extremities - no calf tenderness bilaterally, no swelling Skin - Warm/Dry. Pustular/papular erythematous rash scattered across the upper and lower back Neurological - Alert & oriented x3, CN II-XII in tact Results Labs CBC and Chem 7: 03/08/22 18:46 03/13/22 08:55 Assessment and Plan (1) Folliculitis: Status: Acute Plan 42-year-old male with history of anxiety and depression as well as obsessive compulsive disorder admitted to Psychiatry for agitation with consult placed for evaluation of rash. 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 This is a chronic longstanding issue. Recommend mupirocin 3 times daily for 7-10 days. Patient should follow up outpatient with primary care and dermatology. May need prolonged course of oral antibiotics if refractory to treatment. Thank you for allowing me to participate in this consult. Signing off at this time. Please do not hesitate to call for further questions.
[2022-03-19 20:00] VITALS: BP 135/67; PULSE 80; RESP 16; TEMP 36.6; O2SAT 96
[2022-03-19] MEDS: risperiDONE 2 MG TABLET 4 MG PO (20:04)
[2022-03-19] MEDS: traZODone HCL 50 MG TABLET 150 MG PO (20:04)
[2022-03-19] MEDS: Divalproex Sodium 500 MG TABLET.DR 1500 MG PO (20:05)
[2022-03-19] MEDS: Melatonin 3 MG TABLET 6 MG PO (20:06)
--- NOTE | 2022-03-19 21:13 | HO.PSYCHPN ---
Subjective Subjective Date of Service: 03/19/22 Reason For Visit: aggression Interim History: pt more calm today than previous days, seems less intense/insistent on frame of elbow bumping (such as, he is more flexible in approaching you to bump elbows rather than insisting you come to him to bump). seen with MARLA elkins. pt reports he is sleeping well - too much. feeling groggy. discuss he may feel that way until VPA dosing is made substantially lower, as the combination of VPA and valium likely to be quite sedating. per staff, denies AVH. eating well. safe. med-compliant. Mental Status Exam Mental Status Exam Narrative: A&O. unkempt appearance, disheveled. fair eye contact, attentive. No Tics or Tremors. activated, variably cooperative. variable speech. No prolonged speech latency or dysarthria. word-finding difficulties due to expressive aphasia. affect is hyper-intense, non-labile. mood not assessed no SI/HI/AVH expressed. Insight/ Judgment limited. Diagnostics Vital Signs (24Hr): BMI result Body Mass Index 32.2 Labs Results: 03/08/22 18:46 03/13/22 08:55 Medications Medications Current Medications Acetaminophen (Acetaminophen 325 Mg Tablet) 650 mg PO Q6H PRN PRN Reason: Headache/Pain Mild Scale (1-3) Al Hydroxide/Mg Hydroxide (Magnesium Hydrox/Alum Hydrox 30 Ml Oral.Susp) 30 ml PO Q6H PRN PRN Reason: Heartburn/Nausea Diazepam (Diazepam 5 Mg Tablet) 5 mg PO TID [facility] Last Admin: 03/19/22 20:07 Dose: 5 mg Diazepam (Diazepam 2 Mg Tablet) 2 mg PO TID [facility] Last Admin: 03/19/22 20:06 Dose: 2 mg Divalproex Sodium (Divalproex Sodium 500 Mg Tablet.) 1,500 mg PO BEDTIME [facility] Last Admin: 03/19/22 20:05 Dose: 1,500 mg Divalproex Sodium (Divalproex Sodium 250 Mg Tablet.) 750 mg PO DAILY [facility] Last Admin: 03/19/22 10:31 Dose: 750 mg Fluoxetine HCl (Fluoxetine Hcl 20 Mg Capsule) 80 mg PO DAILY [facility] Last Admin: 03/19/22 10:28 Dose: 80 mg Fluticasone Propionate (Fluticasone Propionate Nasal 16 Gm [place]) 1 spray NOSTRIL-B BID PRN PRN Reason: Nasal Congestion Guaifenesin (Guaifenesin 100 Mg/5 Ml Liquid) 5 ml PO Q4H PRN PRN Reason: productive cough Last Admin: 03/11/22 09:17 Dose: 5 ml Hydroxyzine HCl (Hydroxyzine Hcl 25 Mg Tablet) 25 mg PO TID PRN PRN Reason: Anxiety Last Admin: 03/11/22 20:02 Dose: 25 mg Hydroxyzine HCl (Hydroxyzine Hcl 25 Mg Tablet) 25 mg PO Q6H PRN PRN Reason: Anxiety Last Admin: 03/15/22 00:39 Dose: 25 mg Loperamide HCl (Loperamide Hcl 2 Mg Capsule) 2 mg PO Q8H PRN PRN Reason: loose stool Magnesium Hydroxide (Milk Of Magnesia 30 Ml Oral.Susp) 30 ml PO DAILY PRN PRN Reason: Constipation Melatonin (Melatonin 3 Mg Tablet) 6 mg PO BEDTIME [facility] Last Admin: 03/19/22 20:06 Dose: 6 mg Memantine (Memantine Hcl 10 Mg Tablet) 10 mg PO BID [facility] Last Admin: 03/19/22 20:06 Dose: 10 mg Mupirocin (Mupirocin 2 % Oint 22 Gm T[place]) 1 appl TOPICAL TID [facility]; Protocol Risperidone (Risperidone 3 Mg Tablet) 3 mg PO DAILY [facility] Last Admin: 03/19/22 10:30 Dose: 3 mg Risperidone (Risperidone 2 Mg Tablet) 4 mg PO BEDTIME [facility] Last Admin: 03/19/22 20:04 Dose: 4 mg Trazodone HCl (Trazodone Hcl 50 Mg Tablet) 150 mg PO BEDTIME [facility] Last Admin: 03/19/22 20:04 Dose: 150 mg Trazodone HCl (Trazodone Hcl 50 Mg Tablet) 50 mg PO BEDTIME PRN PRN Reason: Insomnia Last Admin: 03/15/22 00:39 Dose: 50 mg Vitamin E (Vitamin E (Dl,Tocopheryl Acet) 180 Mg (400 Unit) Capsule) 180 mg PO DAILY [facility] Last Admin: 03/19/22 10:30 Dose: 180 mg Allergies Allergies Allergy/AdvReac Type Severity Reaction Status Date / Time No Known Allergies Allergy Verified 03/04/22 11:34 Assessment & Plan Assessment & Plan (1) Folliculitis: Status: Acute Code(s): L73.9 - Follicular disorder, unspecified Assessment and Plan: 42-year-old male with history of anxiety and depression as well as obsessive compulsive disorder admitted to Psychiatry for agitation with consult placed for evaluation of rash. 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 This is a chronic longstanding issue. Recommend mupirocin 3 times daily for 7-10 days. Patient should follow up outpatient with primary care and dermatology. May need prolonged course of oral antibiotics if refractory to treatment. Thank you for allowing me to participate in this consult. Signing off at this time. Please do not hesitate to call for further questions. 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 maintain strong boundaries. message left for Dr. Dash 03/14. 03/15: no call-back from vijaya.? mtg held with other outpt treaters.? add valium 5 mg TID for anxiety. 03/16 Continue current treatment plan 03/17 hospitalist consult to eval and treat back rash/lesions 03/18: increase valium to 7 mg TID for anxiety.? decrease VPA by 500 mg daily, from 2750 to 2250. case discussed with vijaya. 03/19: somewhat sedated from regimen, likely will lessen as VPA tapered. no med changes today. continue current mgmt. I spent ____25__ minutes with the patient and/or on the patient floor today, greater than?50% of which was spent counseling/coordinating care. Reason for contiued inpatient stay Substantial Risk for: harm to others, inability to function and rapid decompensation
[2022-03-20] MEDS: FLUoxetine HCl 20 MG CAPSULE 80 MG PO (10:34)
[2022-03-20] MEDS: Vitamin E (Dl,Tocopheryl Acet) 180 MG (400 UNIT) CAPSULE PO (10:35)
[2022-03-20] MEDS: Memantine HCl 10 MG TABLET PO ×2 (10:35→19:44)
[2022-03-20] MEDS: Divalproex Sodium 250 MG TABLET.DR 750 MG PO (10:36)
[2022-03-20] MEDS: risperiDONE 3 MG TABLET PO (10:36)
[2022-03-20] MEDS: diazePAM 5 MG TABLET PO ×3 (10:37→19:44)
[2022-03-20] MEDS: diazePAM 2 MG TABLET PO (10:37)
--- NOTE | 2022-03-20 16:14 | HO.PSYCHPN ---
Subjective Subjective Date of Service: 03/20/22 Reason For Visit: aggression Interim History: calm, cooperative. appears a bit sedated, unsteady on his feet. seen with MARLA elkins. agreeable to decrease VPA by another 500 mg today and reduce valium from 7 TID back to 5 TID. states he has no anxiety currently and is not depressed. asking about when he will be discharged. [place] [facility] [place]. per staff, denies SI/HI/AVH. denies anx/dep. c/o feeling tired. Mental Status Exam Mental Status Exam Narrative: A&O. unkempt appearance, disheveled. fair eye contact, attentive. No Tics or Tremors. appears sedated/tired. cooperative. speech rapid, nml amount. No prolonged speech latency or dysarthria. word-finding difficulties due to expressive aphasia. affect is hyper-intense, non-labile. mood not assessed no SI/HI/AVH expressed. Insight/ Judgment limited. Diagnostics Vital Signs (24Hr): Vital Signs - 24 hr 03/19/22 20:00 Temperature 97.9 F Pulse Rate 80 Respiratory Rate 16 Blood Pressure 135/67 Pulse Oximetry 96 Oxygen Delivery Method Room Air BMI result Body Mass Index 32.2 Labs Results: 03/08/22 18:46 03/13/22 08:55 Medications Medications Current Medications Acetaminophen (Acetaminophen 325 Mg Tablet) 650 mg PO Q6H PRN PRN Reason: Headache/Pain Mild Scale (1-3) Al Hydroxide/Mg Hydroxide (Magnesium Hydrox/Alum Hydrox 30 Ml Oral.Susp) 30 ml PO Q6H PRN PRN Reason: Heartburn/Nausea Diazepam (Diazepam 5 Mg Tablet) 5 mg PO TID [facility] Last Admin: 03/20/22 14:29 Dose: 5 mg Divalproex Sodium (Divalproex Sodium 500 Mg Tablet.) 1,500 mg PO BEDTIME [facility] Last Admin: 03/19/22 20:05 Dose: 1,500 mg Divalproex Sodium (Divalproex Sodium 250 Mg Tablet.) 250 mg PO DAILY [facility] Fluoxetine HCl (Fluoxetine Hcl 20 Mg Capsule) 80 mg PO DAILY [facility] Last Admin: 03/20/22 10:34 Dose: 80 mg Fluticasone Propionate (Fluticasone Propionate Nasal 16 Gm [place]) 1 spray NOSTRIL-B BID PRN PRN Reason: Nasal Congestion Guaifenesin (Guaifenesin 100 Mg/5 Ml Liquid) 5 ml PO Q4H PRN PRN Reason: productive cough Last Admin: 03/11/22 09:17 Dose: 5 ml Hydroxyzine HCl (Hydroxyzine Hcl 25 Mg Tablet) 25 mg PO TID PRN PRN Reason: Anxiety Last Admin: 03/11/22 20:02 Dose: 25 mg Hydroxyzine HCl (Hydroxyzine Hcl 25 Mg Tablet) 25 mg PO Q6H PRN PRN Reason: Anxiety Last Admin: 03/15/22 00:39 Dose: 25 mg Loperamide HCl (Loperamide Hcl 2 Mg Capsule) 2 mg PO Q8H PRN PRN Reason: loose stool Magnesium Hydroxide (Milk Of Magnesia 30 Ml Oral.Susp) 30 ml PO DAILY PRN PRN Reason: Constipation Melatonin (Melatonin 3 Mg Tablet) 6 mg PO BEDTIME [facility] Last Admin: 03/19/22 20:06 Dose: 6 mg Memantine (Memantine Hcl 10 Mg Tablet) 10 mg PO BID [facility] Last Admin: 03/20/22 10:35 Dose: 10 mg Mupirocin (Mupirocin 2 % Oint 22 Gm Tube) 1 appl TOPICAL TID [facility]; Protocol Last Admin: 03/20/22 14:30 Dose: Not Given Risperidone (Risperidone 3 Mg Tablet) 3 mg PO DAILY [facility] Last Admin: 03/20/22 10:36 Dose: 3 mg Risperidone (Risperidone 2 Mg Tablet) 4 mg PO BEDTIME [facility] Last Admin: 03/19/22 20:04 Dose: 4 mg Trazodone HCl (Trazodone Hcl 50 Mg Tablet) 150 mg PO BEDTIME [facility] Last Admin: 03/19/22 20:04 Dose: 150 mg Trazodone HCl (Trazodone Hcl 50 Mg Tablet) 50 mg PO BEDTIME PRN PRN Reason: Insomnia Last Admin: 03/15/22 00:39 Dose: 50 mg Vitamin E (Vitamin E (Dl,Tocopheryl Acet) 180 Mg (400 Unit) Capsule) 180 mg PO DAILY [facility] Last Admin: 03/20/22 10:35 Dose: 180 mg Allergies Allergies Allergy/AdvReac Type Severity Reaction Status Date / Time No Known Allergies Allergy Verified 03/04/22 11:34 Assessment & Plan Assessment & Plan (1) Folliculitis: Status: Acute Code(s): L73.9 - Follicular disorder, unspecified Assessment and Plan: 42-year-old male with history of anxiety and depression as well as obsessive compulsive disorder admitted to Psychiatry for agitation with consult placed for evaluation of rash. 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 This is a chronic longstanding issue. Recommend mupirocin 3 times daily for 7-10 days. Patient should follow up outpatient with primary care and dermatology. May need prolonged course of oral antibiotics if refractory to treatment. Thank you for allowing me to participate in this consult. Signing off at this time. Please do not hesitate to call for further questions. 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 maintain strong boundaries. message left for Dr. Dash 03/14. 03/15: no call-back from vijaya.? mtg held with other outpt treaters.? add valium 5 mg TID for anxiety. 03/16 Continue current treatment plan 03/17 hospitalist consult to eval and treat back rash/lesions 03/18: increase valium to 7 mg TID for anxiety.? decrease VPA by 500 mg daily, from 2750 to 2250. case discussed with vijaya. 03/19: somewhat sedated from regimen, likely will lessen as VPA tapered. no med changes today. continue current mgmt. 03/20: sedation worsened today. both VPA and valium cut back today (VPA by another 500 mg, to 250/1500; valium by 6 mg, from 7 TID to 5 TID). mtg with oupt providers tomorrow afternoon. I spent ___25___ minutes with the patient and/or on the patient floor today, greater than?50% of which was spent counseling/coordinating care. Reason for contiued inpatient stay Substantial Risk for: inability to function and rapid decompensation
[2022-03-20 18:35] VITALS: BP 138/105; PULSE 85; RESP 16; TEMP 36.7; O2SAT 97
[2022-03-20] MEDS: risperiDONE 2 MG TABLET 4 MG PO (19:44)
[2022-03-20] MEDS: Divalproex Sodium 500 MG TABLET.DR 1500 MG PO (19:44)
[2022-03-20] MEDS: traZODone HCL 50 MG TABLET 150 MG PO (19:44)
[2022-03-20] MEDS: Melatonin 3 MG TABLET 6 MG PO (19:44)
[2022-03-21] MEDS: FLUoxetine HCl 20 MG CAPSULE 80 MG PO (09:11)
[2022-03-21] MEDS: Vitamin E (Dl,Tocopheryl Acet) 180 MG (400 UNIT) CAPSULE PO (09:11)
[2022-03-21] MEDS: Divalproex Sodium 250 MG TABLET.DR PO (09:11)
[2022-03-21] MEDS: diazePAM 5 MG TABLET PO ×3 (09:11→20:24)
[2022-03-21] MEDS: risperiDONE 3 MG TABLET PO (09:11)
[2022-03-21] MEDS: Memantine HCl 10 MG TABLET PO ×2 (09:11→20:24)
[2022-03-21] MEDS: Mupirocin 2 % Oint 22 GM TUBE 1 APPL TOPICAL ×2 (09:46→14:20)
--- NOTE | 2022-03-21 16:41 | HO.PSYCHPN ---
Subjective Subjective Date of Service: 03/21/22 Reason For Visit: aggression Interim History: pt seen with SW, still feeling tired/sedated. injected sclerae. no change to medications planned today as changes were just made yesterday. later, zoom mtg was held with 2 family members and several [facility] staff regarding dispo planning. sergio participated for some of the meeting, not for other parts. mtg was not helpful for collaborative care due to misunderstandings of inpatient Tx plan by several participants. per staff, decreased anxiety, no depression. eating, sleeping well. resting in bed a lot. poor boundaries. minimal group attendance. Mental Status Exam Mental Status Exam Narrative: A&O. unkempt appearance, disheveled. fair eye contact, attentive. No Tics or Tremors. appears sedated/tired. cooperative. speech rapid, nml amount. No prolonged speech latency or dysarthria. word-finding difficulties due to expressive aphasia. affect is hyper-intense, non-labile. mood not assessed no SI/HI/AVH expressed. Insight/ Judgment limited. Diagnostics Vital Signs (24Hr): Vital Signs - 24 hr 03/20/22 18:35 Temperature 98.1 F Pulse Rate 85 Respiratory Rate 16 Blood Pressure 138/105 H Pulse Oximetry 97 Oxygen Delivery Method Room Air BMI result Body Mass Index 32.2 Labs Results: 03/08/22 18:46 03/13/22 08:55 Medications Medications Current Medications Acetaminophen (Acetaminophen 325 Mg Tablet) 650 mg PO Q6H PRN PRN Reason: Headache/Pain Mild Scale (1-3) Al Hydroxide/Mg Hydroxide (Magnesium Hydrox/Alum Hydrox 30 Ml Oral.Susp) 30 ml PO Q6H PRN PRN Reason: Heartburn/Nausea Diazepam (Diazepam 5 Mg Tablet) 5 mg PO TID [facility] Last Admin: 03/21/22 14:20 Dose: 5 mg Divalproex Sodium (Divalproex Sodium 500 Mg Tablet.) 1,500 mg PO BEDTIME [facility] Last Admin: 03/20/22 19:44 Dose: 1,500 mg Divalproex Sodium (Divalproex Sodium 250 Mg Tablet.) 250 mg PO DAILY [facility] Last Admin: 03/21/22 09:11 Dose: 250 mg Fluoxetine HCl (Fluoxetine Hcl 20 Mg Capsule) 80 mg PO DAILY [facility] Last Admin: 03/21/22 09:11 Dose: 80 mg Fluticasone Propionate (Fluticasone Propionate Nasal 16 Gm [place]) 1 spray NOSTRIL-B BID PRN PRN Reason: Nasal Congestion Guaifenesin (Guaifenesin 100 Mg/5 Ml Liquid) 5 ml PO Q4H PRN PRN Reason: productive cough Last Admin: 03/11/22 09:17 Dose: 5 ml Hydroxyzine HCl (Hydroxyzine Hcl 25 Mg Tablet) 25 mg PO TID PRN PRN Reason: Anxiety Last Admin: 03/11/22 20:02 Dose: 25 mg Hydroxyzine HCl (Hydroxyzine Hcl 25 Mg Tablet) 25 mg PO Q6H PRN PRN Reason: Anxiety Last Admin: 03/15/22 00:39 Dose: 25 mg Loperamide HCl (Loperamide Hcl 2 Mg Capsule) 2 mg PO Q8H PRN PRN Reason: loose stool Magnesium Hydroxide (Milk Of Magnesia 30 Ml Oral.Susp) 30 ml PO DAILY PRN PRN Reason: Constipation Melatonin (Melatonin 3 Mg Tablet) 6 mg PO BEDTIME [facility] Last Admin: 03/20/22 19:44 Dose: 6 mg Memantine (Memantine Hcl 10 Mg Tablet) 10 mg PO BID [facility] Last Admin: 03/21/22 09:11 Dose: 10 mg Mupirocin (Mupirocin 2 % Oint 22 Gm Tube) 1 appl TOPICAL TID [facility]; Protocol Last Admin: 03/21/22 14:20 Dose: 1 appl Risperidone (Risperidone 3 Mg Tablet) 3 mg PO DAILY [facility] Last Admin: 03/21/22 09:11 Dose: 3 mg Risperidone (Risperidone 2 Mg Tablet) 4 mg PO BEDTIME [facility] Last Admin: 03/20/22 19:44 Dose: 4 mg Trazodone HCl (Trazodone Hcl 50 Mg Tablet) 150 mg PO BEDTIME [facility] Last Admin: 03/20/22 19:44 Dose: 150 mg Trazodone HCl (Trazodone Hcl 50 Mg Tablet) 50 mg PO BEDTIME PRN PRN Reason: Insomnia Last Admin: 03/15/22 00:39 Dose: 50 mg Vitamin E (Vitamin E (Dl,Tocopheryl Acet) 180 Mg (400 Unit) Capsule) 180 mg PO DAILY [facility] Last Admin: 03/21/22 09:11 Dose: 180 mg Allergies Allergies Allergy/AdvReac Type Severity Reaction Status Date / Time No Known Allergies Allergy Verified 03/04/22 11:34 Assessment & Plan Assessment & Plan (1) Folliculitis: Status: Acute Code(s): L73.9 - Follicular disorder, unspecified Assessment and Plan: 42-year-old male with history of anxiety and depression as well as obsessive compulsive disorder admitted to Psychiatry for agitation with consult placed for evaluation of rash. 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 This is a chronic longstanding issue. Recommend mupirocin 3 times daily for 7-10 days. Patient should follow up outpatient with primary care and dermatology. May need prolonged course of oral antibiotics if refractory to treatment. Thank you for allowing me to participate in this consult. Signing off at this time. Please do not hesitate to call for further questions. 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 maintain strong boundaries. message left for Dr. Dash 03/14. 03/15: no call-back from vijaya.? mtg held with other outpt treaters.? add valium 5 mg TID for anxiety. 03/16 Continue current treatment plan 03/17 hospitalist consult to eval and treat back rash/lesions 03/18: increase valium to 7 mg TID for anxiety.? decrease VPA by 500 mg daily, from 2750 to 2250. case discussed with vijaya. 03/19: somewhat sedated from regimen, likely will lessen as VPA tapered. no med changes today. continue current mgmt. 03/20: sedation worsened today. both VPA and valium cut back today (VPA by another 500 mg, to 250/1500; valium by 6 mg, from 7 TID to 5 TID). mtg with oupt providers tomorrow afternoon. 03/21: stably tired/sedated. will continue current mgmt for today to allow medications to more approach steady state as large change was just made as of this morning (and he does appear less sedated this morning). long Tx planning mtg held with outpt providers. I spent ___60___ minutes with the patient and/or on the patient floor today, greater than?50% of which was spent counseling/coordinating care. Reason for contiued inpatient stay Substantial Risk for: harm to others, inability to function and rapid decompensation
[2022-03-21 20:15] VITALS: BP 119/78; PULSE 82; RESP 18; TEMP 36.6; O2SAT 98
[2022-03-21] MEDS: Melatonin 3 MG TABLET 6 MG PO (20:24)
[2022-03-21] MEDS: traZODone HCL 50 MG TABLET 150 MG PO (20:24)
[2022-03-21] MEDS: Divalproex Sodium 500 MG TABLET.DR 1500 MG PO (20:24)
[2022-03-21] MEDS: risperiDONE 2 MG TABLET 4 MG PO (20:25)
[2022-03-22] MEDS: FLUoxetine HCl 20 MG CAPSULE 80 MG PO (09:49)
[2022-03-22] MEDS: risperiDONE 3 MG TABLET PO (09:50)
[2022-03-22] MEDS: Memantine HCl 10 MG TABLET PO ×2 (09:50→20:22)
[2022-03-22] MEDS: Divalproex Sodium 250 MG TABLET.DR PO (09:50)
[2022-03-22] MEDS: Vitamin E (Dl,Tocopheryl Acet) 180 MG (400 UNIT) CAPSULE PO (09:50)
[2022-03-22] MEDS: diazePAM 5 MG TABLET PO (09:50)
[2022-03-22] MEDS: diazePAM 2 MG TABLET 4 MG PO ×2 (15:28→20:22)
--- NOTE | 2022-03-22 15:36 | P.PNPSI_ITS ---
Subjective Subjective Date of Service: 03/22/22 Reason For Visit: aggression Interim History: appears less tired than yesterday, does c/o feeling tired, though. seen with MARLA Vera. review Tx team mtg held yesterday, review psychopharm plan. agrees to decrease valium dosing from 5 TID to 4 TID. focused on discharge, agree to plan for next week, assuming trend continues. pt reports his anxiety is low today. Mental Status Exam Mental Status Exam Narrative: A&O. unkempt appearance, disheveled. fair eye contact, attentive. No Tics or Tremors. appears tired. cooperative. speech rapid, nml amount. No prolonged speech latency or dysarthria. word-finding difficulties due to expressive aphasia. affect is hyper-intense, non-labile. mood not assessed. no SI/HI/AVH expressed. Insight/ Judgment limited. Diagnostics Vital Signs (24Hr): Vital Signs - 24 hr 03/21/22 20:15 Temperature 97.8 F Pulse Rate 82 Respiratory Rate 18 Blood Pressure 119/78 Pulse Oximetry 98 Oxygen Delivery Method Room Air BMI result Body Mass Index 32.2 Labs Results: 03/08/22 18:46 03/13/22 08:55 Medications Medications Current Medications Acetaminophen (Acetaminophen 325 Mg Tablet) 650 mg PO Q6H PRN PRN Reason: Headache/Pain Mild Scale (1-3) Al Hydroxide/Mg Hydroxide (Magnesium Hydrox/Alum Hydrox 30 Ml Oral.Susp) 30 ml PO Q6H PRN PRN Reason: Heartburn/Nausea Diazepam (Diazepam 2 Mg Tablet) 4 mg PO TID [facility] Last Admin: 03/22/22 15:28 Dose: 4 mg Divalproex Sodium (Divalproex Sodium 500 Mg Tablet.) 1,500 mg PO BEDTIME [facility] Last Admin: 03/21/22 20:24 Dose: 1,500 mg Divalproex Sodium (Divalproex Sodium 250 Mg Tablet.) 250 mg PO DAILY [facility] Last Admin: 03/22/22 09:50 Dose: 250 mg Fluoxetine HCl (Fluoxetine Hcl 20 Mg Capsule) 80 mg PO DAILY [facility] Last Admin: 03/22/22 09:49 Dose: 80 mg Fluticasone Propionate (Fluticasone Propionate Nasal 16 Gm [place]) 1 spray NOSTRIL-B BID PRN PRN Reason: Nasal Congestion Guaifenesin (Guaifenesin 100 Mg/5 Ml Liquid) 5 ml PO Q4H PRN PRN Reason: productive cough Last Admin: 03/11/22 09:17 Dose: 5 ml Hydroxyzine HCl (Hydroxyzine Hcl 25 Mg Tablet) 25 mg PO TID PRN PRN Reason: Anxiety Last Admin: 03/11/22 20:02 Dose: 25 mg Hydroxyzine HCl (Hydroxyzine Hcl 25 Mg Tablet) 25 mg PO Q6H PRN PRN Reason: Anxiety Last Admin: 03/15/22 00:39 Dose: 25 mg Loperamide HCl (Loperamide Hcl 2 Mg Capsule) 2 mg PO Q8H PRN PRN Reason: loose stool Magnesium Hydroxide (Milk Of Magnesia 30 Ml Oral.Susp) 30 ml PO DAILY PRN PRN Reason: Constipation Melatonin (Melatonin 3 Mg Tablet) 6 mg PO BEDTIME [facility] Last Admin: 03/21/22 20:24 Dose: 6 mg Memantine (Memantine Hcl 10 Mg Tablet) 10 mg PO BID [facility] Last Admin: 03/22/22 09:50 Dose: 10 mg Mupirocin (Mupirocin 2 % Oint 22 Gm Tube) 1 appl TOPICAL TID [facility]; Protocol Last Admin: 03/22/22 09:52 Dose: Not Given Risperidone (Risperidone 3 Mg Tablet) 3 mg PO DAILY [facility] Last Admin: 03/22/22 09:50 Dose: 3 mg Risperidone (Risperidone 2 Mg Tablet) 4 mg PO BEDTIME [facility] Last Admin: 03/21/22 20:25 Dose: 4 mg Trazodone HCl (Trazodone Hcl 50 Mg Tablet) 150 mg PO BEDTIME [facility] Last Admin: 03/21/22 20:24 Dose: 150 mg Trazodone HCl (Trazodone Hcl 50 Mg Tablet) 50 mg PO BEDTIME PRN PRN Reason: Insomnia Last Admin: 03/15/22 00:39 Dose: 50 mg Vitamin E (Vitamin E (Dl,Tocopheryl Acet) 180 Mg (400 Unit) Capsule) 180 mg PO DAILY [facility] Last Admin: 03/22/22 09:50 Dose: 180 mg Allergies Allergies Allergy/AdvReac Type Severity Reaction Status Date / Time No Known Allergies Allergy Verified 03/04/22 11:34 Assessment & Plan Assessment & Plan (1) Folliculitis: Status: Acute Code(s): L73.9 - Follicular disorder, unspecified Assessment and Plan: 42-year-old male with history of anxiety and depression as well as obsessive compulsive disorder admitted to Psychiatry for agitation with consult placed for evaluation of rash. 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 This is a chronic longstanding issue. Recommend mupirocin 3 times daily for 7-10 days. Patient should follow up outpatient with primary care and dermatology. May need prolonged course of oral antibiotics if refractory to treatment. Thank you for allowing me to participate in this consult. Signing off at this time. Please do not hesitate to call for further questions. 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 maintain strong boundaries. message left for Dr. Dash 03/14. 03/15: no call-back from vijaya.? mtg held with other outpt treaters.? add valium 5 mg TID for anxiety. 03/16 Continue current treatment plan 03/17 hospitalist consult to eval and treat back rash/lesions 03/18: increase valium to 7 mg TID for anxiety.? decrease VPA by 500 mg daily, from 2750 to 2250. case discussed with vijaya. 03/19: somewhat sedated from regimen, likely will lessen as VPA tapered. no med changes today. continue current mgmt. 03/20: sedation worsened today. both VPA and valium cut back today (VPA by another 500 mg, to 250/1500; valium by 6 mg, from 7 TID to 5 TID). mtg with oupt providers tomorrow afternoon. 03/21: stably tired/sedated. will continue current mgmt for today to allow medications to more approach steady state as large change was just made as of this morning (and he does appear less sedated this morning). long Tx planning mtg held with outpt providers. 03/22: decrease valium from 5 TID to 4 TID due to sedation. otherwise continue current mgmt. hoping for discharge next week sometime. I spent ___35___ minutes with the patient and/or on the patient floor today, greater than?50% of which was spent counseling/coordinating care. Reason for contiued inpatient stay Substantial Risk for: inability to function and rapid decompensation
[2022-03-22 20:05] VITALS: RESP 18
[2022-03-22] MEDS: risperiDONE 2 MG TABLET 4 MG PO (20:21)
[2022-03-22] MEDS: Melatonin 3 MG TABLET 6 MG PO (20:21)
[2022-03-22] MEDS: Divalproex Sodium 500 MG TABLET.DR 1500 MG PO (20:21)
[2022-03-22] MEDS: traZODone HCL 50 MG TABLET 150 MG PO (20:22)
[2022-03-23] MEDS: FLUoxetine HCl 20 MG CAPSULE 80 MG PO (09:32)
[2022-03-23] MEDS: Vitamin E (Dl,Tocopheryl Acet) 180 MG (400 UNIT) CAPSULE PO (09:33)
[2022-03-23] MEDS: Divalproex Sodium 250 MG TABLET.DR PO (09:33)
[2022-03-23] MEDS: diazePAM 2 MG TABLET 4 MG PO ×3 (09:33→20:21)
[2022-03-23] MEDS: Memantine HCl 10 MG TABLET PO ×2 (09:34→20:22)
[2022-03-23] MEDS: risperiDONE 3 MG TABLET PO (09:34)
[2022-03-23] MEDS: Mupirocin 2 % Oint 22 GM TUBE 1 APPL TOPICAL (09:41)
[2022-03-23 09:57] VITALS: RESP 20
--- NOTE | 2022-03-23 18:33 | P.PNPSI_ITS ---
Subjective Subjective Date of Service: 03/23/22 Reason For Visit: aggression Interim History: still groggy, but less groggy than yesterday. asks if MD heard he had grabbed 'chef kellogg' out of anxiety (MD had not heard). reviewed prior VPA dosages, and it appears pt had been on 1500 mg daily until he came into the hospital in january. pt asking to decrease VPA to 1500 mg daily, which is done. agrees to hold steady with other medications for now. discuss sexual dysfunction, identify risperidone as the most likely offender. per staff, no SI/HI/AVH. sleepy. limited participation. dep/anx remain. safe. taking meds. sleeping well. Mental Status Exam Mental Status Exam Narrative: A&O. unkempt appearance, disheveled. fair eye contact, attentive. No Tics or Tremors. appears tired. cooperative. speech rapid, nml amount. No prolonged speech latency or dysarthria. word-finding difficulties due to expressive aphasia. affect is hyper-intense, non-labile. mood not assessed. no SI/HI/AVH expressed. Insight/ Judgment limited. Diagnostics Vital Signs (24Hr): Vital Signs - 24 hr 03/22/22 20:05 03/23/22 09:57 Respiratory Rate 18 20 BMI result Body Mass Index 32.2 Labs Results: 03/08/22 18:46 03/13/22 08:55 Medications Medications Current Medications Acetaminophen (Acetaminophen 325 Mg Tablet) 650 mg PO Q6H PRN PRN Reason: Headache/Pain Mild Scale (1-3) Al Hydroxide/Mg Hydroxide (Magnesium Hydrox/Alum Hydrox 30 Ml Oral.Susp) 30 ml PO Q6H PRN PRN Reason: Heartburn/Nausea Diazepam (Diazepam 2 Mg Tablet) 4 mg PO TID [facility] Last Admin: 03/23/22 15:07 Dose: 4 mg Divalproex Sodium (Divalproex Sodium 500 Mg Tablet.) 1,500 mg PO BEDTIME [facility] Last Admin: 03/22/22 20:21 Dose: 1,500 mg Fluoxetine HCl (Fluoxetine Hcl 20 Mg Capsule) 80 mg PO DAILY [facility] Last Admin: 03/23/22 09:32 Dose: 80 mg Fluticasone Propionate (Fluticasone Propionate Nasal 16 Gm [place]) 1 spray NOSTRIL-B BID PRN PRN Reason: Nasal Congestion Guaifenesin (Guaifenesin 100 Mg/5 Ml Liquid) 5 ml PO Q4H PRN PRN Reason: productive cough Last Admin: 03/11/22 09:17 Dose: 5 ml Hydroxyzine HCl (Hydroxyzine Hcl 25 Mg Tablet) 25 mg PO TID PRN PRN Reason: Anxiety Last Admin: 03/11/22 20:02 Dose: 25 mg Hydroxyzine HCl (Hydroxyzine Hcl 25 Mg Tablet) 25 mg PO Q6H PRN PRN Reason: Anxiety Last Admin: 03/15/22 00:39 Dose: 25 mg Loperamide HCl (Loperamide Hcl 2 Mg Capsule) 2 mg PO Q8H PRN PRN Reason: loose stool Magnesium Hydroxide (Milk Of Magnesia 30 Ml Oral.Susp) 30 ml PO DAILY PRN PRN Reason: Constipation Melatonin (Melatonin 3 Mg Tablet) 6 mg PO BEDTIME [facility] Last Admin: 03/22/22 20:21 Dose: 6 mg Memantine (Memantine Hcl 10 Mg Tablet) 10 mg PO BID [facility] Last Admin: 03/23/22 09:34 Dose: 10 mg Mupirocin (Mupirocin 2 % Oint 22 Gm Tube) 1 appl TOPICAL TID [facility]; Protocol Last Admin: 03/23/22 15:28 Dose: Not Given Risperidone (Risperidone 3 Mg Tablet) 3 mg PO DAILY [facility] Last Admin: 03/23/22 09:34 Dose: 3 mg Risperidone (Risperidone 2 Mg Tablet) 4 mg PO BEDTIME [facility] Last Admin: 03/22/22 20:21 Dose: 4 mg Trazodone HCl (Trazodone Hcl 50 Mg Tablet) 150 mg PO BEDTIME [facility] Last Admin: 03/22/22 20:22 Dose: 150 mg Trazodone HCl (Trazodone Hcl 50 Mg Tablet) 50 mg PO BEDTIME PRN PRN Reason: Insomnia Last Admin: 03/15/22 00:39 Dose: 50 mg Vitamin E (Vitamin E (Dl,Tocopheryl Acet) 180 Mg (400 Unit) Capsule) 180 mg PO DAILY [facility] Last Admin: 03/23/22 09:33 Dose: 180 mg Allergies Allergies Allergy/AdvReac Type Severity Reaction Status Date / Time No Known Allergies Allergy Verified 03/04/22 11:34 Assessment & Plan Assessment & Plan (1) Folliculitis: Status: Acute Code(s): L73.9 - Follicular disorder, unspecified Assessment and Plan: 42-year-old male with history of anxiety and depression as well as obsessive compulsive disorder admitted to Psychiatry for agitation with consult placed for evaluation of rash. 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 This is a chronic longstanding issue. Recommend mupirocin 3 times daily for 7-10 days. Patient should follow up outpatient with primary care and dermatology. May need prolonged course of oral antibiotics if refractory to treatment. Thank you for allowing me to participate in this consult. Signing off at this time. Please do not hesitate to call for further questions. 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 maintain strong boundaries. message left for Dr. Dash 03/14. 03/15: no call-back from vijaya.? mtg held with other outpt treaters.? add valium 5 mg TID for anxiety. 03/16 Continue current treatment plan 03/17 hospitalist consult to eval and treat back rash/lesions 03/18: increase valium to 7 mg TID for anxiety.? decrease VPA by 500 mg daily, from 2750 to 2250. case discussed with vijaya. 03/19: somewhat sedated from regimen, likely will lessen as VPA tapered. no med changes today. continue current mgmt. 03/20: sedation worsened today. both VPA and valium cut back today (VPA by another 500 mg, to 250/1500; valium by 6 mg, from 7 TID to 5 TID). mtg with oupt providers tomorrow afternoon. 03/21: stably tired/sedated. will continue current mgmt for today to allow medications to more approach steady state as large change was just made as of this morning (and he does appear less sedated this morning). long Tx planning mtg held with outpt providers. 03/22: decrease valium from 5 TID to 4 TID due to sedation. otherwise continue current mgmt. hoping for discharge next week sometime. 03/23: decrease VPA from 1750 to 1500, which is the dose he had been on coming into the fall. otherwise continue current mgmt. I spent ___15___ minutes with the patient and/or on the patient floor today, greater than?50% of which was spent counseling/coordinating care. Reason for contiued inpatient stay Substantial Risk for: harm to others, inability to function and med/psych decompensation
[2022-03-23] MEDS: Divalproex Sodium 500 MG TABLET.DR 1500 MG PO (20:21)
[2022-03-23] MEDS: risperiDONE 2 MG TABLET 4 MG PO (20:22)
[2022-03-23] MEDS: Melatonin 3 MG TABLET 6 MG PO (20:22)
[2022-03-23] MEDS: traZODone HCL 50 MG TABLET 150 MG PO (20:22)
[2022-03-23 20:26] VITALS: BP 156/80; PULSE 66; RESP 18; TEMP 36.2; O2SAT 95
[2022-03-24 09:00] VITALS: RESP 18
[2022-03-24] MEDS: FLUoxetine HCl 20 MG CAPSULE 80 MG PO (09:05)
[2022-03-24] MEDS: Vitamin E (Dl,Tocopheryl Acet) 180 MG (400 UNIT) CAPSULE PO (09:06)
[2022-03-24] MEDS: risperiDONE 3 MG TABLET PO (09:06)
[2022-03-24] MEDS: diazePAM 2 MG TABLET 4 MG PO ×3 (09:06→21:41)
[2022-03-24] MEDS: Memantine HCl 10 MG TABLET PO ×2 (09:06→21:41)
[2022-03-24] MEDS: Mupirocin 2 % Oint 22 GM TUBE 1 APPL TOPICAL (11:30)
[2022-03-24] MEDS: traZODone HCL 50 MG TABLET 150 MG PO (21:40)
[2022-03-24] MEDS: Divalproex Sodium 500 MG TABLET.DR 1500 MG PO (21:41)
[2022-03-24] MEDS: risperiDONE 2 MG TABLET 4 MG PO (21:41)
[2022-03-24] MEDS: Melatonin 3 MG TABLET 6 MG PO (21:41)
--- NOTE | 2022-03-24 22:03 | HO.PSYCHPN ---
Subjective Subjective Date of Service: 03/24/22 Reason For Visit: aggression Interim History: calm, cooperative. cover similar ground to the past several days. psychopharm changes planning, discussion re timing of discharge. still quite tired, but each day less tired than the last. reports not too much anxiety and numb re mood state. per staff, no behavioral changes. grabbed food server yesterday, shaking him, saying, where you been? apparently pt wanted to get in his order early and tried to jump line but food server held boundary, which upset him. he felt food server was putting him off and trying to make him order last. isolative. sleeping on and off. Mental Status Exam Mental Status Exam Narrative: A&O. unkempt appearance, disheveled. fair eye contact, attentive. No Tics or Tremors. appears tired. cooperative. speech rapid, nml amount. No prolonged speech latency or dysarthria. word-finding difficulties due to expressive aphasia. affect is hyper-intense, non-labile. mood numb, anxiety not too much. no SI/HI/AVH expressed. Insight/ Judgment limited. Diagnostics Vital Signs (24Hr): Vital Signs - 24 hr 03/24/22 09:00 Respiratory Rate 18 BMI result Body Mass Index 32.2 Labs Results: 03/08/22 18:46 03/13/22 08:55 Medications Medications Current Medications Acetaminophen (Acetaminophen 325 Mg Tablet) 650 mg PO Q6H PRN PRN Reason: Headache/Pain Mild Scale (1-3) Al Hydroxide/Mg Hydroxide (Magnesium Hydrox/Alum Hydrox 30 Ml Oral.Susp) 30 ml PO Q6H PRN PRN Reason: Heartburn/Nausea Diazepam (Diazepam 2 Mg Tablet) 4 mg PO TID [facility] Last Admin: 03/24/22 21:41 Dose: 4 mg Divalproex Sodium (Divalproex Sodium 500 Mg Tablet.Dr) 1,500 mg PO BEDTIME [facility] Last Admin: 03/24/22 21:41 Dose: 1,500 mg Fluoxetine HCl (Fluoxetine Hcl 20 Mg Capsule) 80 mg PO DAILY [facility] Last Admin: 03/24/22 09:05 Dose: 80 mg Fluticasone Propionate (Fluticasone Propionate Nasal 16 Gm [place]) 1 spray NOSTRIL-B BID PRN PRN Reason: Nasal Congestion Guaifenesin (Guaifenesin 100 Mg/5 Ml Liquid) 5 ml PO Q4H PRN PRN Reason: productive cough Last Admin: 03/11/22 09:17 Dose: 5 ml Hydroxyzine HCl (Hydroxyzine Hcl 25 Mg Tablet) 25 mg PO TID PRN PRN Reason: Anxiety Last Admin: 03/11/22 20:02 Dose: 25 mg Hydroxyzine HCl (Hydroxyzine Hcl 25 Mg Tablet) 25 mg PO Q6H PRN PRN Reason: Anxiety Last Admin: 03/15/22 00:39 Dose: 25 mg Loperamide HCl (Loperamide Hcl 2 Mg Capsule) 2 mg PO Q8H PRN PRN Reason: loose stool Magnesium Hydroxide (Milk Of Magnesia 30 Ml Oral.Susp) 30 ml PO DAILY PRN PRN Reason: Constipation Melatonin (Melatonin 3 Mg Tablet) 6 mg PO BEDTIME [facility] Last Admin: 03/24/22 21:41 Dose: 6 mg Memantine (Memantine Hcl 10 Mg Tablet) 10 mg PO BID [facility] Last Admin: 03/24/22 21:41 Dose: 10 mg Mupirocin (Mupirocin 2 % Oint 22 Gm Tube) 1 appl TOPICAL TID [facility]; Protocol Last Admin: 03/24/22 21:42 Dose: Not Given Risperidone (Risperidone 3 Mg Tablet) 3 mg PO DAILY [facility] Last Admin: 03/24/22 09:06 Dose: 3 mg Risperidone (Risperidone 2 Mg Tablet) 4 mg PO BEDTIME [facility] Last Admin: 03/24/22 21:41 Dose: 4 mg Trazodone HCl (Trazodone Hcl 50 Mg Tablet) 150 mg PO BEDTIME [facility] Last Admin: 03/24/22 21:40 Dose: 150 mg Trazodone HCl (Trazodone Hcl 50 Mg Tablet) 50 mg PO BEDTIME PRN PRN Reason: Insomnia Last Admin: 03/15/22 00:39 Dose: 50 mg Vitamin E (Vitamin E (Dl,Tocopheryl Acet) 180 Mg (400 Unit) Capsule) 180 mg PO DAILY [facility] Last Admin: 03/24/22 09:06 Dose: 180 mg Allergies Allergies Allergy/AdvReac Type Severity Reaction Status Date / Time No Known Allergies Allergy Verified 03/04/22 11:34 Assessment & Plan Assessment & Plan (1) Folliculitis: Status: Acute Code(s): L73.9 - Follicular disorder, unspecified Assessment and Plan: 42-year-old male with history of anxiety and depression as well as obsessive compulsive disorder admitted to Psychiatry for agitation with consult placed for evaluation of rash. 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 This is a chronic longstanding issue. Recommend mupirocin 3 times daily for 7-10 days. Patient should follow up outpatient with primary care and dermatology. May need prolonged course of oral antibiotics if refractory to treatment. Thank you for allowing me to participate in this consult. Signing off at this time. Please do not hesitate to call for further questions. 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 maintain strong boundaries. message left for Dr. Dash 03/14. 03/15: no call-back from vijaya.? mtg held with other outpt treaters.? add valium 5 mg TID for anxiety. 03/16 Continue current treatment plan 03/17 hospitalist consult to eval and treat back rash/lesions 03/18: increase valium to 7 mg TID for anxiety.? decrease VPA by 500 mg daily, from 2750 to 2250. case discussed with vijaya. 03/19: somewhat sedated from regimen, likely will lessen as VPA tapered. no med changes today. continue current mgmt. 03/20: sedation worsened today. both VPA and valium cut back today (VPA by another 500 mg, to 250/1500; valium by 6 mg, from 7 TID to 5 TID). mtg with oupt providers tomorrow afternoon. 03/21: stably tired/sedated. will continue current mgmt for today to allow medications to more approach steady state as large change was just made as of this morning (and he does appear less sedated this morning). long Tx planning mtg held with outpt providers. 03/22: decrease valium from 5 TID to 4 TID due to sedation. otherwise continue current mgmt. hoping for discharge next week sometime. 03/23: decrease VPA from 1750 to 1500, which is the dose he had been on coming into the fall. otherwise continue current mgmt. 03/24: continue current mgmt. still tired, but less so than before. grabbed food servicec worker, shaking him, yesterday. I spent ___15___ minutes with the patient and/or on the patient floor today, greater than?50% of which was spent counseling/coordinating care. Reason for contiued inpatient stay Substantial Risk for: harm to others, inability to function and med/psych decompensation
[2022-03-25] MEDS: FLUoxetine HCl 20 MG CAPSULE 80 MG PO (09:58)
[2022-03-25] MEDS: risperiDONE 3 MG TABLET PO (09:58)
[2022-03-25] MEDS: Vitamin E (Dl,Tocopheryl Acet) 180 MG (400 UNIT) CAPSULE PO (09:58)
[2022-03-25] MEDS: Memantine HCl 10 MG TABLET PO ×2 (09:58→20:18)
[2022-03-25] MEDS: diazePAM 2 MG TABLET 4 MG PO ×3 (09:58→20:18)
--- NOTE | 2022-03-25 14:16 | HO.PSYCHPN ---
Subjective Subjective Date of Service: 03/25/22 Reason For Visit: aggression Interim History: continues tired, perhaps same as yesterday. agreeable to continue as we are through tomorrow and reassess need for valium dose reduction. per staff, denies psych Sx. watching TV, social. no inappropriate behaviors days. low frustration tolerance. eating and sleeping well. yelling, pounding on wall last night as staff training and development manager did not give him his meds until 10 pm. Mental Status Exam Mental Status Exam Narrative: A&O. unkempt appearance, disheveled. fair eye contact, attentive. No Tics or Tremors. appears tired. cooperative. speech rapid, nml amount. No prolonged speech latency or dysarthria. word-finding difficulties due to expressive aphasia. affect is hyper-intense, non-labile. no SI/HI/AVH expressed. Insight/ Judgment limited. Diagnostics Vital Signs (24Hr): BMI result Body Mass Index 32.2 Labs Results: 03/08/22 18:46 03/13/22 08:55 Medications Medications Current Medications Acetaminophen (Acetaminophen 325 Mg Tablet) 650 mg PO Q6H PRN PRN Reason: Headache/Pain Mild Scale (1-3) Al Hydroxide/Mg Hydroxide (Magnesium Hydrox/Alum Hydrox 30 Ml Oral.Susp) 30 ml PO Q6H PRN PRN Reason: Heartburn/Nausea Diazepam (Diazepam 2 Mg Tablet) 4 mg PO TID [facility] Last Admin: 03/25/22 09:58 Dose: 4 mg Divalproex Sodium (Divalproex Sodium 500 Mg Tablet.Dr) 1,500 mg PO BEDTIME [facility] Last Admin: 03/24/22 21:41 Dose: 1,500 mg Fluoxetine HCl (Fluoxetine Hcl 20 Mg Capsule) 80 mg PO DAILY [facility] Last Admin: 03/25/22 09:58 Dose: 80 mg Fluticasone Propionate (Fluticasone Propionate Nasal 16 Gm [place]) 1 spray NOSTRIL-B BID PRN PRN Reason: Nasal Congestion Guaifenesin (Guaifenesin 100 Mg/5 Ml Liquid) 5 ml PO Q4H PRN PRN Reason: productive cough Last Admin: 03/11/22 09:17 Dose: 5 ml Hydroxyzine HCl (Hydroxyzine Hcl 25 Mg Tablet) 25 mg PO TID PRN PRN Reason: Anxiety Last Admin: 03/11/22 20:02 Dose: 25 mg Hydroxyzine HCl (Hydroxyzine Hcl 25 Mg Tablet) 25 mg PO Q6H PRN PRN Reason: Anxiety Last Admin: 03/15/22 00:39 Dose: 25 mg Loperamide HCl (Loperamide Hcl 2 Mg Capsule) 2 mg PO Q8H PRN PRN Reason: loose stool Magnesium Hydroxide (Milk Of Magnesia 30 Ml Oral.Susp) 30 ml PO DAILY PRN PRN Reason: Constipation Melatonin (Melatonin 3 Mg Tablet) 6 mg PO BEDTIME [facility] Last Admin: 03/24/22 21:41 Dose: 6 mg Memantine (Memantine Hcl 10 Mg Tablet) 10 mg PO BID [facility] Last Admin: 03/25/22 09:58 Dose: 10 mg Mupirocin (Mupirocin 2 % Oint 22 Gm Tube) 1 appl TOPICAL TID [facility]; Protocol Last Admin: 03/25/22 10:03 Dose: Not Given Risperidone (Risperidone 3 Mg Tablet) 3 mg PO DAILY [facility] Last Admin: 03/25/22 09:58 Dose: 3 mg Risperidone (Risperidone 2 Mg Tablet) 4 mg PO BEDTIME [facility] Last Admin: 03/24/22 21:41 Dose: 4 mg Trazodone HCl (Trazodone Hcl 50 Mg Tablet) 150 mg PO BEDTIME [facility] Last Admin: 03/24/22 21:40 Dose: 150 mg Trazodone HCl (Trazodone Hcl 50 Mg Tablet) 50 mg PO BEDTIME PRN PRN Reason: Insomnia Last Admin: 03/15/22 00:39 Dose: 50 mg Vitamin E (Vitamin E (Dl,Tocopheryl Acet) 180 Mg (400 Unit) Capsule) 180 mg PO DAILY [facility] Last Admin: 03/25/22 09:58 Dose: 180 mg Allergies Allergies Allergy/AdvReac Type Severity Reaction Status Date / Time No Known Allergies Allergy Verified 03/04/22 11:34 Assessment & Plan Assessment & Plan (1) Folliculitis: Status: Acute Code(s): L73.9 - Follicular disorder, unspecified Assessment and Plan: 42-year-old male with history of anxiety and depression as well as obsessive compulsive disorder admitted to Psychiatry for agitation with consult placed for evaluation of rash. 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 This is a chronic longstanding issue. Recommend mupirocin 3 times daily for 7-10 days. Patient should follow up outpatient with primary care and dermatology. May need prolonged course of oral antibiotics if refractory to treatment. Thank you for allowing me to participate in this consult. Signing off at this time. Please do not hesitate to call for further questions. 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 maintain strong boundaries. message left for Dr. Dash 03/14. 03/15: no call-back from vijaya.? mtg held with other outpt treaters.? add valium 5 mg TID for anxiety. 03/16 Continue current treatment plan 03/17 hospitalist consult to eval and treat back rash/lesions 03/18: increase valium to 7 mg TID for anxiety.? decrease VPA by 500 mg daily, from 2750 to 2250. case discussed with vijaya. 03/19: somewhat sedated from regimen, likely will lessen as VPA tapered. no med changes today. continue current mgmt. 03/20: sedation worsened today. both VPA and valium cut back today (VPA by another 500 mg, to 250/1500; valium by 6 mg, from 7 TID to 5 TID). mtg with oupt providers tomorrow afternoon. 03/21: stably tired/sedated. will continue current mgmt for today to allow medications to more approach steady state as large change was just made as of this morning (and he does appear less sedated this morning). long Tx planning mtg held with outpt providers. 03/22: decrease valium from 5 TID to 4 TID due to sedation. otherwise continue current mgmt. hoping for discharge next week sometime. 03/23: decrease VPA from 1750 to 1500, which is the dose he had been on coming into the fall. otherwise continue current mgmt. 03/24: continue current mgmt. still tired, but less so than before. grabbed food services worker, shaking him, yesterday. 03/25: continue current mgmt. episode of yelling at RNs last NOC and pounding the wall when he was given his medications later than his preference. I spent ___15___ minutes with the patient and/or on the patient floor today, greater than?50% of which was spent counseling/coordinating care. Reason for contiued inpatient stay Substantial Risk for: inability to function and rapid decompensation
[2022-03-25 20:00] VITALS: RESP 14
[2022-03-25] MEDS: Mupirocin 2 % Oint 22 GM TUBE 1 APPL TOPICAL (20:17)
[2022-03-25] MEDS: risperiDONE 2 MG TABLET 4 MG PO (20:17)
[2022-03-25] MEDS: traZODone HCL 50 MG TABLET 150 MG PO (20:18)
[2022-03-25] MEDS: Melatonin 3 MG TABLET 6 MG PO (20:18)
[2022-03-25] MEDS: Divalproex Sodium 500 MG TABLET.DR 1500 MG PO (20:18)
[2022-03-26] MEDS: FLUoxetine HCl 20 MG CAPSULE 80 MG PO (08:55)
[2022-03-26] MEDS: Memantine HCl 10 MG TABLET PO ×2 (08:57→20:08)
[2022-03-26] MEDS: diazePAM 2 MG TABLET 4 MG PO ×3 (08:57→20:08)
[2022-03-26] MEDS: Mupirocin 2 % Oint 22 GM TUBE 1 APPL TOPICAL (08:58)
[2022-03-26] MEDS: Vitamin E (Dl,Tocopheryl Acet) 180 MG (400 UNIT) CAPSULE PO (08:58)
[2022-03-26] MEDS: risperiDONE 3 MG TABLET PO (08:58)
--- NOTE | 2022-03-26 15:11 | P.PNPSI_ITS ---
Subjective Subjective Date of Service: 03/26/22 Reason For Visit: aggression Interim History: calm, cooperative. seen in his room. appears somewhat tired, says he remains tired. seems resigned to the tiredness in service of impulse control. asking about anti-depressant regimen, impatient to make a change immediately. per staff, isolative, withdrawn. refused 1:1 check-in. taking meds and meals. sleeping through the night. feeling overwhelmed by inconsistencies in RNs' behaviors toward him (ie, medication administration times at ). scared to go home, fearful of lashing out and being arrested. Mental Status Exam Mental Status Exam Narrative: A&O. unkempt appearance, disheveled. fair eye contact, attentive. No Tics or Tremors. appears tired. cooperative. speech nml rate, nml amount. No prolonged speech latency or dysarthria. word-finding difficulties due to expres sive aphasia. affect is hypo-intense, non-labile. no SI/HI/AVH expressed. Insight/ Judgment limited. Diagnostics Vital Signs (24Hr): Vital Signs - 24 hr 03/25/22 20:00 Respiratory Rate 14 BMI result Body Mass Index 32.2 Labs Results: 03/08/22 18:46 03/13/22 08:55 Medications Medications Current Medications Acetaminophen (Acetaminophen 325 Mg Tablet) 650 mg PO Q6H PRN PRN Reason: Headache/Pain Mild Scale (1-3) Al Hydroxide/Mg Hydroxide (Magnesium Hydrox/Alum Hydrox 30 Ml Oral.Susp) 30 ml PO Q6H PRN PRN Reason: Heartburn/Nausea Diazepam (Diazepam 2 Mg Tablet) 4 mg PO TID [facility] Last Admin: 03/26/22 14:14 Dose: 4 mg Divalproex Sodium (Divalproex Sodium 500 Mg Tablet.Dr) 1,500 mg PO BEDTIME [facility] Last Admin: 03/25/22 20:18 Dose: 1,500 mg Fluoxetine HCl (Fluoxetine Hcl 20 Mg Capsule) 80 mg PO DAILY [facility] Last Admin: 03/26/22 08:55 Dose: 80 mg Fluticasone Propionate (Fluticasone Propionate Nasal 16 Gm [place]) 1 spray NOSTRIL-B BID PRN PRN Reason: Nasal Congestion Guaifenesin (Guaifenesin 100 Mg/5 Ml Liquid) 5 ml PO Q4H PRN PRN Reason: productive cough Last Admin: 03/11/22 09:17 Dose: 5 ml Hydroxyzine HCl (Hydroxyzine Hcl 25 Mg Tablet) 25 mg PO TID PRN PRN Reason: Anxiety Last Admin: 03/11/22 20:02 Dose: 25 mg Hydroxyzine HCl (Hydroxyzine Hcl 25 Mg Tablet) 25 mg PO Q6H PRN PRN Reason: Anxiety Last Admin: 03/15/22 00:39 Dose: 25 mg Loperamide HCl (Loperamide Hcl 2 Mg Capsule) 2 mg PO Q8H PRN PRN Reason: loose stool Magnesium Hydroxide (Milk Of Magnesia 30 Ml Oral.Susp) 30 ml PO DAILY PRN PRN Reason: Constipation Melatonin (Melatonin 3 Mg Tablet) 6 mg PO BEDTIME [facility] Last Admin: 03/25/22 20:18 Dose: 6 mg Memantine (Memantine Hcl 10 Mg Tablet) 10 mg PO BID [facility] Last Admin: 03/26/22 08:57 Dose: 10 mg Mupirocin (Mupirocin 2 % Oint 22 Gm Tube) 1 appl TOPICAL TID [facility]; Protocol Last Admin: 03/26/22 14:16 Dose: Not Given Risperidone (Risperidone 3 Mg Tablet) 3 mg PO DAILY [facility] Last Admin: 03/26/22 08:58 Dose: 3 mg Risperidone (Risperidone 2 Mg Tablet) 4 mg PO BEDTIME [facility] Last Admin: 03/25/22 20:17 Dose: 4 mg Trazodone HCl (Trazodone Hcl 50 Mg Tablet) 150 mg PO BEDTIME [facility] Last Admin: 03/25/22 20:18 Dose: 150 mg Trazodone HCl (Trazodone Hcl 50 Mg Tablet) 50 mg PO BEDTIME PRN PRN Reason: Insomnia Last Admin: 03/15/22 00:39 Dose: 50 mg Vitamin E (Vitamin E (Dl,Tocopheryl Acet) 180 Mg (400 Unit) Capsule) 180 mg PO DAILY [facility] Last Admin: 03/26/22 08:58 Dose: 180 mg Allergies Allergies Allergy/AdvReac Type Severity Reaction Status Date / Time No Known Allergies Allergy Verified 03/04/22 11:34 Assessment & Plan Assessment & Plan (1) Folliculitis: Status: Acute Code(s): L73.9 - Follicular disorder, unspecified Assessment and Plan: 42-year-old male with history of anxiety and depression as well as obsessive compulsive disorder admitted to Psychiatry for agitation with consult placed for evaluation of rash. 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 This is a chronic longstanding issue. Recommend mupirocin 3 times daily for 7-10 days. Patient should follow up outpatient with primary care and dermatology. May need prolonged course of oral antibiotics if refractory to treatment. Thank you for allowing me to participate in this consult. Signing off at this time. Please do not hesitate to call for further questions. 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 maintain strong boundaries. message left for Dr. Dash 03/14. 03/15: no call-back from vijaya.? mtg held with other outpt treaters.? add valium 5 mg TID for anxiety. 03/16 Continue current treatment plan 03/17 hospitalist consult to eval and treat back rash/lesions 03/18: increase valium to 7 mg TID for anxiety.? decrease VPA by 500 mg daily, from 2750 to 2250. case discussed with vijaya. 03/19: somewhat sedated from regimen, likely will lessen as VPA tapered. no med changes today. continue current mgmt. 03/20: sedation worsened today. both VPA and valium cut back today (VPA by another 500 mg, to 250/1500; valium by 6 mg, from 7 TID to 5 TID). mtg with oupt providers tomorrow afternoon. 03/21: stably tired/sedated. will continue current mgmt for today to allow medications to more approach steady state as large change was just made as of this morning (and he does appear less sedated this morning). maci Coreas planning m tg held with outpt providers. 03/22: decrease valium from 5 TID to 4 TID due to sedation. otherwise continue current mgmt. hoping for discharge next week sometime. 03/23: decrease VPA from 1750 to 1500, which is the dose he had been on coming into the fall. otherwise continue current mgmt. 03/24: continue current mgmt. still tired, but less so than before. grabbed food services worker, shaking him, yesterday. 03/25: continue current mgmt. episode of yelling at RNs last NOC and pounding the wall when he was given his medications later than his preference. 03/26: tiredness continues. continue current mgmt to allow new steady state for VPA and valium to be achieved. pt requesting not to wait until after discharge to start an anti-depressant medication, requesting collaboration with vijaya on that topic. hoping for DC prior to thanksgi. I spent ___25___ minutes with the patient and/or on the patient floor today, greater than?50% of which was spent counseling/coordinating care. Reason for contiued inpatient stay Substantial Risk for: harm to others, inability to function and rapid decompensation
[2022-03-26 18:00] VITALS: BP 127/79; PULSE 85; RESP 16; TEMP 36.6; O2SAT 99
[2022-03-26] MEDS: traZODone HCL 50 MG TABLET 150 MG PO (20:08)
[2022-03-26] MEDS: Divalproex Sodium 500 MG TABLET.DR 1500 MG PO (20:08)
[2022-03-26] MEDS: risperiDONE 2 MG TABLET 4 MG PO (20:08)
[2022-03-26] MEDS: Melatonin 3 MG TABLET 6 MG PO (20:08)
[2022-03-27] MEDS: traZODone HCL 50 MG TABLET PO ×2 (02:00→22:02)
[2022-03-27] MEDS: FLUoxetine HCl 20 MG CAPSULE 80 MG PO (10:00)
[2022-03-27] MEDS: Vitamin E (Dl,Tocopheryl Acet) 180 MG (400 UNIT) CAPSULE PO (10:01)
[2022-03-27] MEDS: Memantine HCl 10 MG TABLET PO ×2 (10:02→20:24)
[2022-03-27] MEDS: diazePAM 2 MG TABLET 4 MG PO ×2 (10:02→14:35)
[2022-03-27] MEDS: risperiDONE 3 MG TABLET PO (10:03)
--- NOTE | 2022-03-27 10:05 | P.PNPSI_ITS ---
Subjective Subjective Date of Service: 03/27/22 Reason For Visit: aggression Subjective Notes: Conditional Voluntary Interim History: Pt reports feeling better. He denies SI/HI. He reports less compulsions. He reports he feels comfortable on the unit and has made friends. He reports he is ready to return to . He is sleeping and eating well. Medication Compliance: Yes Side effects from medications: No Attending Groups: Yes Review of Systems Review of Systems General: No fevers, malaise, unintentional weight loss Cardiovascular: No chest pain, palpitations, or leg edema Respiratory: No shortness of breath, wheezing, cough MSK: No myalgia, back pain Skin: No rashes or lesions Yes all other systems are reviewed and are negative Mental Status Exam Mental Status Exam Narrative: A&O. unkempt appearance, disheveled. fair eye contact, attentive. No Tics or Tremors. appears tired. cooperative. speech nml rate, nml amount. No prolonged speech latency or dysarthria. word-finding difficulties due to expres sive aphasia. affect is hypo-intense, non-labile. no SI/HI/AVH expressed. Insight/ Judgment limited. Diagnostics Vital Signs (24Hr): Vital Signs - 24 hr 03/27/22 20:40 Temperature 97.9 F Pulse Rate 74 Respiratory Rate 16 Blood Pressure 125/73 Pulse Oximetry 95 Oxygen Delivery Method Room Air BMI result Body Mass Index 32.2 Labs Results: 03/08/22 18:46 03/13/22 08:55 Medications Medications Current Medications Acetaminophen (Acetaminophen 325 Mg Tablet) 650 mg PO Q6H PRN PRN Reason: Headache/Pain Mild Scale (1-3) Al Hydroxide/Mg Hydroxide (Magnesium Hydrox/Alum Hydrox 30 Ml Oral.Susp) 30 ml PO Q6H PRN PRN Reason: Heartburn/Nausea Last Admin: 03/27/22 22:02 Dose: 30 ml Divalproex Sodium (Divalproex Sodium 500 Mg Tablet.Dr) 1,500 mg PO BEDTIME [facility] Last Admin: 03/27/22 20:23 Dose: 1,500 mg Fluoxetine HCl (Fluoxetine Hcl 20 Mg Capsule) 80 mg PO DAILY [facility] Last Admin: 03/27/22 10:00 Dose: 80 mg Fluticasone Propionate (Fluticasone Propionate Nasal 16 Gm [place]) 1 spray NOSTRIL-B BID PRN PRN Reason: Nasal Congestion Guaifenesin (Guaifenesin 100 Mg/5 Ml Liquid) 5 ml PO Q4H PRN PRN Reason: productive cough Last Admin: 03/11/22 09:17 Dose: 5 ml Hydroxyzine HCl (Hydroxyzine Hcl 25 Mg Tablet) 25 mg PO TID PRN PRN Reason: Anxiety Last Admin: 03/11/22 20:02 Dose: 25 mg Hydroxyzine HCl (Hydroxyzine Hcl 25 Mg Tablet) 25 mg PO Q6H PRN PRN Reason: Anxiety Last Admin: 03/15/22 00:39 Dose: 25 mg Loperamide HCl (Loperamide Hcl 2 Mg Capsule) 2 mg PO Q8H PRN PRN Reason: loose stool Magnesium Hydroxide (Milk Of Magnesia 30 Ml Oral.Susp) 30 ml PO DAILY PRN PRN Reason: Constipation Melatonin (Melatonin 3 Mg Tablet) 6 mg PO BEDTIME [facility] Last Admin: 03/27/22 20:24 Dose: 6 mg Memantine (Memantine Hcl 10 Mg Tablet) 10 mg PO BID [facility] Last Admin: 03/27/22 20:24 Dose: 10 mg Mupirocin (Mupirocin 2 % Oint 22 Gm Tube) 1 appl TOPICAL TID [facility]; Protocol Last Admin: 03/27/22 22:25 Dose: Not Given Risperidone (Risperidone 3 Mg Tablet) 3 mg PO DAILY [facility] Last Admin: 03/27/22 10:03 Dose: 3 mg Risperidone (Risperidone 2 Mg Tablet) 4 mg PO BEDTIME [facility] Last Admin: 03/27/22 20:24 Dose: 4 mg Trazodone HCl (Trazodone Hcl 50 Mg Tablet) 150 mg PO BEDTIME [facility] Last Admin: 03/27/22 20:24 Dose: 150 mg Trazodone HCl (Trazodone Hcl 50 Mg Tablet) 50 mg PO BEDTIME PRN PRN Reason: Insomnia Last Admin: 03/27/22 22:02 Dose: 50 mg Vitamin E (Vitamin E (Dl,Tocopheryl Acet) 180 Mg (400 Unit) Capsule) 180 mg PO DAILY [facility] Last Admin: 03/27/22 10:01 Dose: 180 mg Allergies Allergies Allergy/AdvReac Type Severity Reaction Status Date / Time No Known Allergies Allergy Verified 03/04/22 11:34 Assessment & Plan Assessment & Plan (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 maintain strong boundaries. message left for Dr. Dash 03/14. 03/15: no call-back from vijaya.? mtg held with other outpt treaters.? add abel ium 5 mg TID for anxiety. 03/16 Continue current treatment plan 03/17 hospitalist consult to eval and treat back rash/lesions 03/18: increase valium to 7 mg TID for anxiety.? decrease VPA by 500 mg daily, from 2750 to 2250. case discussed with vijaya. 03/19: somewhat sedated from regimen, likely will lessen as VPA tapered. no med changes today. continue current mgmt. 03/20: sedation worsened today. both VPA and valium cut back today (VPA by another 500 mg, to 250/1500; valium by 6 mg, from 7 TID to 5 TID). mtg with oupt providers tomorrow afternoon. 03/21: stably tired/sedated. will continue current mgmt for today to allow medications to more approach steady state as large change was just made as of this morning (and he does appear less sedated this morning). long Tx planning mtg held with outpt providers. 03/22: decrease valium from 5 TID to 4 TID due to sedation. otherwise continue current mgmt. hoping for discharge next week sometime. 03/23: decrease VPA from 1750 to 1500, which is the dose he had been on coming into the fall. otherwise continue current mgmt. 03/24: continue current mgmt. still tired, but less so than before. grabbed food services worker, shaking him, yesterday. 03/25: continue current mgmt. episode of yelling at RNs last NOC and pounding the wall when he was given his medications later than his preference. 03/26: tiredness continues. continue current mgmt to allow new steady state for VPA and valium to be achieved. pt requesting not to wait until after discharge to start an anti-depressant medication, requesting collaboration with vijaya on that topic. hoping for DC prior to thanksgiving. 03/27 continue current medications. I spent minutes with the patient and/or on the patient floor today, greater than?50% of which was spent counseling/coordinating care. Reason for contiued inpatient stay Substantial Risk for: stable for discharge
[2022-03-27] MEDS: Divalproex Sodium 500 MG TABLET.DR 1500 MG PO (20:23)
[2022-03-27] MEDS: traZODone HCL 50 MG TABLET 150 MG PO (20:24)
[2022-03-27] MEDS: Melatonin 3 MG TABLET 6 MG PO (20:24)
[2022-03-27] MEDS: risperiDONE 2 MG TABLET 4 MG PO (20:24)
[2022-03-27 20:40] VITALS: BP 125/73; PULSE 74; RESP 16; TEMP 36.6; O2SAT 95
[2022-03-27] MEDS: Magnesium Hydrox/Alum Hydrox 30 ML ORAL.SUSP PO (22:02)
[2022-03-28 08:30] VITALS: RESP 16
[2022-03-28] MEDS: Memantine HCl 10 MG TABLET PO ×2 (10:01→20:19)
[2022-03-28] MEDS: risperiDONE 3 MG TABLET PO (10:01)
[2022-03-28] MEDS: FLUoxetine HCl 20 MG CAPSULE 80 MG PO (10:01)
[2022-03-28] MEDS: Vitamin E (Dl,Tocopheryl Acet) 180 MG (400 UNIT) CAPSULE PO (10:02)
[2022-03-28] MEDS: diazePAM 2 MG TABLET 4 MG PO ×3 (11:15→20:20)
--- NOTE | 2022-03-28 13:29 | P.PNPSI_ITS ---
Subjective Subjective Date of Service: 03/28/22 Reason For Visit: aggression Subjective Notes: Conditional Voluntary Interim History: Pt reports feeling less anxious. He states he feels happier. He denies SI/HI. He is sleeping and eating well. Still doing some ritualistic behavior but manageable. No behavioral concerns. No signs of aggression. Medication Compliance: Yes Review of Systems Review of Systems General: No fevers, malaise, unintentional weight loss Cardiovascular: No chest pain, palpitations, or leg edema Respiratory: No shortness of breath, wheezing, cough MSK: No myalgia, back pain Skin: No rashes or lesions Yes all other systems are reviewed and are negative Mental Status Exam Mental Status Exam Narrative: A&O. unkempt appearance, disheveled.? fair eye contact, attentive. No Tics or Tremors.? appears tired.? cooperative.? speech nml rate, nml amount.? No prolonged speech latency or dysarthria.? word-finding difficulties due to expressive aphasia.? affect is hypo-intense, non-labile.? no SI/HI/AVH expressed.? Insight/ Judgment limited. Diagnostics Vital Signs (24Hr): Vital Signs - 24 hr 03/29/22 09:00 03/29/22 20:19 Temperature 98 F Pulse Rate 72 Respiratory Rate 18 16 Blood Pressure 146/87 H Pulse Oximetry 96 Oxygen Delivery Method Room Air BMI result Body Mass Index 32.2 Labs Results: 03/08/22 18:46 03/13/22 08:55 Labs: Laboratory Results - last 48 hr 03/29/22 18:27 Valproic Acid 42.5 L Medications Medications Current Medications Acetaminophen (Acetaminophen 325 Mg Tablet) 650 mg PO Q6H PRN PRN Reason: Headache/Pain Mild Scale (1-3) Al Hydroxide/Mg Hydroxide (Magnesium Hydrox/Alum Hydrox 30 Ml Oral.Susp) 30 ml PO Q6H PRN PRN Reason: Heartburn/Nausea Last Admin: 03/27/22 22:02 Dose: 30 ml Diazepam (Diazepam 2 Mg Tablet) 4 mg PO TID [facility] Last Admin: 03/29/22 20:11 Dose: 4 mg Divalproex Sodium (Divalproex Sodium 500 Mg Tablet.Dr) 1,500 mg PO BEDTIME [facility] Last Admin: 03/29/22 20:13 Dose: 1,500 mg Fluoxetine HCl (Fluoxetine Hcl 20 Mg Capsule) 80 mg PO DAILY [facility] Last Admin: 03/29/22 09:11 Dose: 80 mg Fluticasone Propionate (Fluticasone Propionate Nasal 16 Gm [place]) 1 spray NOSTRIL-B BID PRN PRN Reason: Nasal Congestion Last Admin: 03/28/22 20:34 Dose: 1 spray Guaifenesin (Guaifenesin 100 Mg/5 Ml Liquid) 5 ml PO Q4H PRN PRN Reason: productive cough Last Admin: 03/11/22 09:17 Dose: 5 ml Hydroxyzine HCl (Hydroxyzine Hcl 25 Mg Tablet) 25 mg PO TID PRN PRN Reason: Anxiety Last Admin: 03/11/22 20:02 Dose: 25 mg Hydroxyzine HCl (Hydroxyzine Hcl 25 Mg Tablet) 25 mg PO Q6H PRN PRN Reason: Anxiety Last Admin: 03/15/22 00:39 Dose: 25 mg Loperamide HCl (Loperamide Hcl 2 Mg Capsule) 2 mg PO Q8H PRN PRN Reason: loose stool Magnesium Hydroxide (Milk Of Magnesia 30 Ml Oral.Susp) 30 ml PO DAILY PRN PRN Reason: Constipation Melatonin (Melatonin 3 Mg Tablet) 6 mg PO BEDTIME [facility] Last Admin: 03/29/22 20:12 Dose: 6 mg Memantine (Memantine Hcl 10 Mg Tablet) 10 mg PO BID [facility] Last Admin: 03/29/22 20:12 Dose: 10 mg Mupirocin (Mupirocin 2 % Oint 22 Gm Tube) 1 appl TOPICAL TID [facility]; Protocol Last Admin: 03/29/22 20:13 Dose: 1 appl Risperidone (Risperidone 3 Mg Tablet) 3 mg PO DAILY [facility] Last Admin: 03/29/22 09:11 Dose: 3 mg Risperidone (Risperidone 2 Mg Tablet) 4 mg PO BEDTIME [facility] Last Admin: 03/29/22 20:12 Dose: 4 mg Trazodone HCl (Trazodone Hcl 50 Mg Tablet) 150 mg PO BEDTIME [facility] Last Admin: 03/29/22 20:12 Dose: 150 mg Trazodone HCl (Trazodone Hcl 50 Mg Tablet) 50 mg PO BEDTIME PRN PRN Reason: Insomnia Last Admin: 03/28/22 20:19 Dose: 50 mg Vitamin E (Vitamin E (Dl,Tocopheryl Acet) 180 Mg (400 Unit) Capsule) 180 mg PO DAILY [facility] Last Admin: 03/29/22 09:11 Dose: 180 mg Allergies Allergies Allergy/AdvReac Type Severity Reaction Status Date / Time No Known Allergies Allergy Verified 03/04/22 11:34 Assessment & Plan Assessment & Plan (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 maintain strong boundaries. message left for Dr. Dash 03/14. 03/15: no call-back from vijaya.? mtg held with other outpt treaters.? add valium 5 mg TID for anxiety. 03/16 Continue current treatment plan 03/17 hospitalist consult to eval and treat back rash/lesions 03/18: increase valium to 7 mg TID for anxiety.? decrease VPA by 500 mg daily, from 2750 to 2250. case discussed with vijaya. 03/19: somewhat sedated from regimen, likely will lessen as VPA tapered. no med changes today. continue current mgmt. 03/20: sedation worsened today. both VPA and valium cut back today (VPA by another 500 mg, to 250/1500; valium by 6 mg, from 7 TID to 5 TID). mtg with oupt providers tomorrow afternoon. 03/21: stably tired/sedated. will continue current mgmt for today to allow medications to more approach steady state as large change was just made as of this morning (and he does appear less sedated this morning). long Tx planning mtg held with outpt providers. 03/22: decrease valium from 5 TID to 4 TID due to sedation. otherwise continue current mgmt. hoping for discharge next week sometime. 03/23: decrease VPA from 1750 to 1500, which is the dose he had been on coming into the fall. otherwise continue current mgmt. 03/24: continue current mgmt. still tired, but less so than before. grabbed food services worker, shaking him, yesterday. 03/25: continue current mgmt. episode of yelling at RNs last NOC and pounding the wall when he was given his medications later than his preference. 03/26: tiredness continues. continue current mgmt to allow new steady state for VPA and valium to be achieved. pt requesting not to wait until after discharge to start an anti-depressant medication, requesting collaboration with vijaya on that topic. hoping for DC prior to thanksgiving. 03/27 continue current medications. 03/28 continue current medications. I spent minutes with the patient and/or on the patient floor today, greater than?50% of which was spent counseling/coordinating care. Reason for contiued inpatient stay Substantial Risk for: inability to function
[2022-03-28] MEDS: Mupirocin 2 % Oint 22 GM TUBE 1 APPL TOPICAL ×2 (19:07→20:34)
[2022-03-28 20:15] VITALS: BP 141/105; PULSE 83; RESP 18; TEMP 36.6; O2SAT 94
[2022-03-28] MEDS: traZODone HCL 50 MG TABLET PO (20:19)
[2022-03-28] MEDS: traZODone HCL 50 MG TABLET 150 MG PO (20:19)
[2022-03-28] MEDS: Melatonin 3 MG TABLET 6 MG PO (20:19)
[2022-03-28] MEDS: Divalproex Sodium 500 MG TABLET.DR 1500 MG PO (20:19)
[2022-03-28] MEDS: risperiDONE 2 MG TABLET 4 MG PO (20:20)
[2022-03-28] MEDS: Fluticasone Propionate Nasal 16 GM SPRAY 1 SPRAY NOSTRIL-B (20:34)
[2022-03-29 09:00] VITALS: RESP 18
[2022-03-29] MEDS: Vitamin E (Dl,Tocopheryl Acet) 180 MG (400 UNIT) CAPSULE PO (09:11)
[2022-03-29] MEDS: risperiDONE 3 MG TABLET PO (09:11)
[2022-03-29] MEDS: FLUoxetine HCl 20 MG CAPSULE 80 MG PO (09:11)
[2022-03-29] MEDS: diazePAM 2 MG TABLET 4 MG PO ×3 (09:12→20:11)
[2022-03-29] MEDS: Memantine HCl 10 MG TABLET PO ×2 (09:12→20:12)
--- NOTE | 2022-03-29 12:31 | P.PNPSI_ITS ---
Subjective Subjective Date of Service: 03/29/22 Reason For Visit: aggression Subjective Notes: Conditional Voluntary Interim History: Pt had meeting with staff from . Pt scheduled to be discharged next friday. No SI/HI. Pt reports feeling well. No behavioral concerns or signs of aggression towards self or others. Per nursing, pt much more visible, social, seen smiling in no acute distress. Medication Compliance: Yes Review of Systems Review of Systems General: No fevers, malaise, unintentional weight loss Cardiovascular: No chest pain, palpitations, or leg edema Respiratory: No shortness of breath, wheezing, cough MSK: No myalgia, back pain Skin: No rashes or lesions Yes all other systems are reviewed and are negative Mental Status Exam Mental Status Exam Narrative: A&O. unkempt appearance, disheveled.? fair eye contact, attentive. No Tics or Tremors.? appears tired.? cooperative.? speech nml rate, nml amount.? No prolonged speech latency or dysarthria.? word-finding difficulties due to expressive aphasia.? affect is hypo-intense, non-labile.? no SI/HI/AVH expressed.? Insight/ Judgment limited. Diagnostics Vital Signs (24Hr): Vital Signs - 24 hr 03/29/22 09:00 03/29/22 20:19 Temperature 98 F Pulse Rate 72 Respiratory Rate 18 16 Blood Pressure 146/87 H Pulse Oximetry 96 Oxygen Delivery Method Room Air BMI result Body Mass Index 32.2 Labs Results: 03/08/22 18:46 03/13/22 08:55 Labs: Laboratory Results - last 48 hr 03/29/22 18:27 Valproic Acid 42.5 L Medications Medications Current Medications Acetaminophen (Acetaminophen 325 Mg Tablet) 650 mg PO Q6H PRN PRN Reason: Headache/Pain Mild Scale (1-3) Al Hydroxide/Mg Hydroxide (Magnesium Hydrox/Alum Hydrox 30 Ml Oral.Susp) 30 ml PO Q6H PRN PRN Reason: Heartburn/Nausea Last Admin: 03/27/22 22:02 Dose: 30 ml Diazepam (Diazepam 2 Mg Tablet) 4 mg PO TID [facility] Last Admin: 03/29/22 20:11 Dose: 4 mg Divalproex Sodium (Divalproex Sodium 500 Mg Tablet.) 1,500 mg PO BEDTIME [facility] Last Admin: 03/29/22 20:13 Dose: 1,500 mg Fluoxetine HCl (Fluoxetine Hcl 20 Mg Capsule) 80 mg PO DAILY [facility] Last Admin: 03/29/22 09:11 Dose: 80 mg Fluticasone Propionate (Fluticasone Propionate Nasal 16 Gm [place]) 1 spray NOSTRIL-B BID PRN PRN Reason: Nasal Congestion Last Admin: 03/28/22 20:34 Dose: 1 spray Guaifenesin (Guaifenesin 100 Mg/5 Ml Liquid) 5 ml PO Q4H PRN PRN Reason: productive cough Last Admin: 03/11/22 09:17 Dose: 5 ml Hydroxyzine HCl (Hydroxyzine Hcl 25 Mg Tablet) 25 mg PO TID PRN PRN Reason: Anxiety Last Admin: 03/11/22 20:02 Dose: 25 mg Hydroxyzine HCl (Hydroxyzine Hcl 25 Mg Tablet) 25 mg PO Q6H PRN PRN Reason: Anxiety Last Admin: 03/15/22 00:39 Dose: 25 mg Loperamide HCl (Loperamide Hcl 2 Mg Capsule) 2 mg PO Q8H PRN PRN Reason: loose stool Magnesium Hydroxide (Milk Of Magnesia 30 Ml Oral.Susp) 30 ml PO DAILY PRN PRN Reason: Constipation Melatonin (Melatonin 3 Mg Tablet) 6 mg PO BEDTIME [facility] Last Admin: 03/29/22 20:12 Dose: 6 mg Memantine (Memantine Hcl 10 Mg Tablet) 10 mg PO BID [facility] Last Admin: 03/29/22 20:12 Dose: 10 mg Mupirocin (Mupirocin 2 % Oint 22 Gm Tube) 1 appl TOPICAL TID [facility]; Protocol Last Admin: 03/29/22 20:13 Dose: 1 appl Risperidone (Risperidone 3 Mg Tablet) 3 mg PO DAILY [facility] Last Admin: 03/29/22 09:11 Dose: 3 mg Risperidone (Risperidone 2 Mg Tablet) 4 mg PO BEDTIME [facility] Last Admin: 03/29/22 20:12 Dose: 4 mg Trazodone HCl (Trazodone Hcl 50 Mg Tablet) 150 mg PO BEDTIME [facility] Last Admin: 03/29/22 20:12 Dose: 150 mg Trazodone HCl (Trazodone Hcl 50 Mg Tablet) 50 mg PO BEDTIME PRN PRN Reason: Insomnia Last Admin: 03/28/22 20:19 Dose: 50 mg Vitamin E (Vitamin E (Dl,Tocopheryl Acet) 180 Mg (400 Unit) Capsule) 180 mg PO DAILY [facility] Last Admin: 03/29/22 09:11 Dose: 180 mg Allergies Allergies Allergy/AdvReac Type Severity Reaction Status Date / Time No Known Allergies Allergy Verified 03/04/22 11:34 Assessment & Plan Assessment & Plan (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 maintain strong boundaries. message left for Dr. Dash 03/14. 03/15: no call-back from vijaya.? mtg held with other outpt treaters.? add valium 5 mg TID for anxiety. 03/16 Continue current treatment plan 03/17 hospitalist consult to eval and treat back rash/lesions 03/18: increase valium to 7 mg TID for anxiety.? decrease VPA by 500 mg daily, from 2750 to 2250. case discussed with vijaya. 03/19: somewhat sedated from regimen, likely will lessen as VPA tapered. no med changes today. continue current mgmt. 03/20: sedation worsened today. both VPA and valium cut back today (VPA by another 500 mg, to 250/1500; valium by 6 mg, from 7 TID to 5 TID). mtg with oupt providers tomorrow afternoon. 03/21: stably tired/sedated. will continue current mgmt for today to allow med ications to more approach steady state as large change was just made as of this morning (and he does appear less sedated this morning). long Tx planning mtg held with outpt providers. 03/22: decrease valium from 5 TID to 4 TID due to sedation. otherwise continue current mgmt. hoping for discharge next week sometime. 03/23: decrease VPA from 1750 to 1500, which is the dose he had been on coming into the fall. otherwise continue current mgmt. 03/24: continue current mgmt. still tired, but less so than before. grabbed food services worker, shaking him, yesterday. 03/25: continue current mgmt. episode of yelling at RNs last NOC and pounding the wall when he was given his medications later than his preference. 03/26: tiredness continues. continue current mgmt to allow new steady state for VPA and valium to be achieved. pt requesting not to wait until after discharge to start an anti-depressant medication, requesting collaboration with vijaya on that topic. hoping for DC prior to . 03/27 continue current medications. 03/28 continue current medications. 03/29 continue tx. plan for dc sunday 04/01. I spent minutes with the patient and/or on the patient floor today, greater than?50% of which was spent counseling/coordinating care. Reason for contiued inpatient stay Substantial Risk for: inability to function
[2022-03-29 19:06] LABS: Valproate 42.5 mcg/mL (50.0-100.0)
[2022-03-29] MEDS: Melatonin 3 MG TABLET 6 MG PO (20:12)
[2022-03-29] MEDS: traZODone HCL 50 MG TABLET 150 MG PO (20:12)
[2022-03-29] MEDS: risperiDONE 2 MG TABLET 4 MG PO (20:12)
[2022-03-29] MEDS: Mupirocin 2 % Oint 22 GM TUBE 1 APPL TOPICAL (20:13)
[2022-03-29] MEDS: Divalproex Sodium 500 MG TABLET.DR 1500 MG PO (20:13)
[2022-03-29 20:19] VITALS: BP 146/87; PULSE 72; RESP 16; TEMP 36.6; O2SAT 96
--- NOTE | 2022-03-30 00:56 | P.PNPSI_ITS ---
Subjective Subjective Date of Service: 03/30/22 Reason For Visit: aggression Interim History: Discussed with team, pt continues to have poor boundaries. Spoke with pt, says im fine, has some up or down moods. Says he is sleeping very well I think. Does not want med changes. Mental Status Exam Mental Status Exam Narrative: A&O. unkempt appearance, disheveled.? fair eye contact, attentive. No Tics or Tremors.? appears tired.? cooperative.? speech nml rate, nml amount.? No prolon ged speech latency or dysarthria.? word-finding difficulties due to expressive aphasia.? affect is hypo-intense, non-labile.? no SI/HI/AVH expressed.? Insight/ Judgment limited. Diagnostics Vital Signs (24Hr): Vital Signs - 24 hr 03/29/22 09:00 03/29/22 20:19 Temperature 98 F Pulse Rate 72 Respiratory Rate 18 16 Blood Pressure 146/87 H Pulse Oximetry 96 Oxygen Delivery Method Room Air BMI result Body Mass Index 32.2 Labs Results: 03/08/22 18:46 03/13/22 08:55 Labs: Laboratory Results - last 48 hr 03/29/22 18:27 Valproic Acid 42.5 L Medications Medications Current Medications Acetaminophen (Acetaminophen 325 Mg Tablet) 650 mg PO Q6H PRN PRN Reason: Headache/Pain Mild Scale (1-3) Al Hydroxide/Mg Hydroxide (Magnesium Hydrox/Alum Hydrox 30 Ml Oral.Susp) 30 ml PO Q6H PRN PRN Reason: Heartburn/Nausea Last Admin: 03/27/22 22:02 Dose: 30 ml Diazepam (Diazepam 2 Mg Tablet) 4 mg PO TID [facility] Last Admin: 03/29/22 20:11 Dose: 4 mg Divalproex Sodium (Divalproex Sodium 500 Mg Tablet.Dr) 1,500 mg PO BEDTIME [facility] Last Admin: 03/29/22 20:13 Dose: 1,500 mg Fluoxetine HCl (Fluoxetine Hcl 20 Mg Capsule) 80 mg PO DAILY [facility] Last Admin: 03/29/22 09:11 Dose: 80 mg Fluticasone Propionate (Fluticasone Propionate Nasal 16 Gm [place]) 1 spray NOSTRIL-B BID PRN PRN Reason: Nasal Congestion Last Admin: 03/28/22 20:34 Dose: 1 spray Guaifenesin (Guaifenesin 100 Mg/5 Ml Liquid) 5 ml PO Q4H PRN PRN Reason: productive cough Last Admin: 03/11/22 09:17 Dose: 5 ml Hydroxyzine HCl (Hydroxyzine Hcl 25 Mg Tablet) 25 mg PO TID PRN PRN Reason: Anxiety Last Admin: 03/11/22 20:02 Dose: 25 mg Hydroxyzine HCl (Hydroxyzine Hcl 25 Mg Tablet) 25 mg PO Q6H PRN PRN Reason: Anxiety Last Admin: 03/15/22 00:39 Dose: 25 mg Loperamide HCl (Loperamide Hcl 2 Mg Capsule) 2 mg PO Q8H PRN PRN Reason: loose stool Magnesium Hydroxide (Milk Of Magnesia 30 Ml Oral.Susp) 30 ml PO DAILY PRN PRN Reason: Constipation Melatonin (Melatonin 3 Mg Tablet) 6 mg PO BEDTIME [facility] Last Admin: 03/29/22 20:12 Dose: 6 mg Memantine (Memantine Hcl 10 Mg Tablet) 10 mg PO BID [facility] Last Admin: 03/29/22 20:12 Dose: 10 mg Mupirocin (Mupirocin 2 % Oint 22 Gm Tube) 1 appl TOPICAL TID [facility]; Protocol Last Admin: 03/29/22 20:13 Dose: 1 appl Risperidone (Risperidone 3 Mg Tablet) 3 mg PO DAILY [facility] Last Admin: 03/29/22 09:11 Dose: 3 mg Risperidone (Risperidone 2 Mg Tablet) 4 mg PO BEDTIME [facility] Last Admin: 03/29/22 20:12 Dose: 4 mg Trazodone HCl (Trazodone Hcl 50 Mg Tablet) 150 mg PO BEDTIME [facility] Last Admin: 03/29/22 20:12 Dose: 150 mg Trazodone HCl (Trazodone Hcl 50 Mg Tablet) 50 mg PO BEDTIME PRN PRN Reason: Insomnia Last Admin: 03/28/22 20:19 Dose: 50 mg Vitamin E (Vitamin E (Dl,Tocopheryl Acet) 180 Mg (400 Unit) Capsule) 180 mg PO DAILY [facility] Last Admin: 03/29/22 09:11 Dose: 180 mg Allergies Allergies Allergy/AdvReac Type Severity Reaction Status Date / Time No Known Allergies Allergy Verified 03/04/22 11:34 Assessment & Plan Assessment & Plan (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 maintain strong boundaries. message left for Dr. Dash 03/14. 03/15: no call-back from vijaya.? mtg held with other outpt treaters.? add valium 5 mg TID for anxiety. 03/16 Continue current treatment plan 03/17 hospitalist consult to eval and treat back rash/lesions 03/18: increase valium to 7 mg TID for anxiety.? decrease VPA by 500 mg daily, from 2750 to 2250. case discussed with vijaya. 03/19: somewhat sedated from regimen, likely will lessen as VPA tapered. no med changes today. continue current mgmt. 03/20: sedation worsened today. both VPA and valium cut back today (VPA by another 500 mg, to 250/1500; valium by 6 mg, from 7 TID to 5 TID). mtg with oupt providers tomorrow afternoon. 03/21: stably tired/sedated. will continue current mgmt for today to allow medications to more approach steady state as large change was just made as of this morning (and he does appear less sedated this morning). long Tx planning mtg held with outpt providers. 03/22: decrease valium from 5 TID to 4 TID due to sedation. otherwise continue current mgmt. hoping for discharge next week sometime. 03/23: decrease VPA from 1750 to 1500, which is the dose he had been on coming into the fall. otherwise continue current mgmt. 03/24: continue current mgmt. still tired, but less so than before. grabbed food services worker, shaking him, yesterday. 03/25: continue current mgmt. episode of yelling at RNs last NOC and pounding the wall when he was given his medications later than his preference. 03/26: tiredness continues. continue current mgmt to allow new steady state for VPA and valium to be achieved. pt requesting not to wait until after discharge to start an anti-depressant medication, requesting collaboration with vijaya on that topic. hoping for DC prior to . 03/27 continue current medications.03/27 continue current medications. 03/28 continue current medications. 03/29 continue tx. plan for dc sunday 04/01. 03/30: No med changes I spent minutes with the patient and/or on the patient floor today, greater than?50% of which was spent counseling/coordinating care. Reason for contiued inpatient stay Substantial Risk for: med/psych decompensation
[2022-03-30] MEDS: diazePAM 2 MG TABLET 4 MG PO ×3 (09:17→20:39)
[2022-03-30] MEDS: FLUoxetine HCl 20 MG CAPSULE 80 MG PO (09:18)
[2022-03-30] MEDS: risperiDONE 3 MG TABLET PO (09:18)
[2022-03-30] MEDS: Vitamin E (Dl,Tocopheryl Acet) 180 MG (400 UNIT) CAPSULE PO (09:18)
[2022-03-30] MEDS: Memantine HCl 10 MG TABLET PO ×2 (09:19→20:39)
[2022-03-30] MEDS: Mupirocin 2 % Oint 22 GM TUBE 1 APPL TOPICAL (20:38)
[2022-03-30] MEDS: Divalproex Sodium 500 MG TABLET.DR 1500 MG PO (20:39)
[2022-03-30] MEDS: risperiDONE 2 MG TABLET 4 MG PO (20:39)
[2022-03-30] MEDS: Melatonin 3 MG TABLET 6 MG PO (20:40)
[2022-03-30] MEDS: traZODone HCL 50 MG TABLET 150 MG PO (20:40)
--- NOTE | 2022-03-31 01:54 | P.PNPSI_ITS ---
Subjective Subjective Date of Service: 03/31/22 Reason For Visit: aggression Interim History: Discussed with team. He had verbal altercation with RN last night. Today pt says I dont feel ready to go home. Says there was some girl I dont like [referring to RN] and says he engaged in a yelling match with her. 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 Says im not in control of myself. He doesnt think going up on risperdal or depakote will work. Does not like valium. He wants his providers to talk to his Op psych provider, Dr. Rhoades, because he knows me the best and he knows Pt's past med hx, as he says he is allergic to at least 30 meds. He wants something for mood stabilization and depression. Says he prefers scheduled meds, does not feel PRNs work for him because his escalation is too fast. Medication Compliance: Yes Side effects from medications: No Attending Groups: Intermittent Review of Systems Acute medical concerns: No Medical Review of Systems: unchanged Mental Status Exam Mental Status Exam Narrative: A&O. unkempt appearance, disheveled.? fair eye contact, attentive. No Tics or Tremors.? appears tired.? cooperative.? speech nml rate, nml amount.? No prolonged speech latency or dysarthria.? word-finding difficulties due to expressive aphasia.? affect is hypo-intense, non-labile.? no SI/HI/AVH expressed.? Insight/ Judgment limited. OCD bx, i.e. spitting into his shirt rep etively, poor physical boundaries. Diagnostics Vital Signs (24Hr): BMI result Body Mass Index 32.2 Labs Results: 03/08/22 18:46 03/13/22 08:55 Labs: Laboratory Results - last 48 hr 03/29/22 18:27 Valproic Acid 42.5 L Medications Medications Current Medications Acetaminophen (Acetaminophen 325 Mg Tablet) 650 mg PO Q6H PRN PRN Reason: Headache/Pain Mild Scale (1-3) Al Hydroxide/Mg Hydroxide (Magnesium Hydrox/Alum Hydrox 30 Ml Oral.Susp) 30 ml PO Q6H PRN PRN Reason: Heartburn/Nausea Last Admin: 03/27/22 22:02 Dose: 30 ml Diazepam (Diazepam 2 Mg Tablet) 4 mg PO TID [facility] Last Admin: 03/30/22 20:39 Dose: 4 mg Divalproex Sodium (Divalproex Sodium 500 Mg Tablet.Dr) 1,500 mg PO BEDTIME [facility] Last Admin: 03/30/22 20:39 Dose: 1,500 mg Fluoxetine HCl (Fluoxetine Hcl 20 Mg Capsule) 80 mg PO DAILY [facility] Last Admin: 03/30/22 09:18 Dose: 80 mg Fluticasone Propionate (Fluticasone Propionate Nasal 16 Gm [place]) 1 spray NOSTRIL-B BID PRN PRN Reason: Nasal Congestion Last Admin: 03/28/22 20:34 Dose: 1 spray Guaifenesin (Guaifenesin 100 Mg/5 Ml Liquid) 5 ml PO Q4H PRN PRN Reason: productive cough Last Admin: 03/11/22 09:17 Dose: 5 ml Hydroxyzine HCl (Hydroxyzine Hcl 25 Mg Tablet) 25 mg PO TID PRN PRN Reason: Anxiety Last Admin: 03/11/22 20:02 Dose: 25 mg Hydroxyzine HCl (Hydroxyzine Hcl 25 Mg Tablet) 25 mg PO Q6H PRN PRN Reason: Anxiety Last Admin: 03/15/22 00:39 Dose: 25 mg Loperamide HCl (Loperamide Hcl 2 Mg Capsule) 2 mg PO Q8H PRN PRN Reason: loose stool Magnesium Hydroxide (Milk Of Magnesia 30 Ml Oral.Susp) 30 ml PO DAILY PRN PRN Reason: Constipation Melatonin (Melatonin 3 Mg Tablet) 6 mg PO BEDTIME [facility] Last Admin: 03/30/22 20:40 Dose: 6 mg Memantine (Memantine Hcl 10 Mg Tablet) 10 mg PO BID [facility] Last Admin: 03/30/22 20:39 Dose: 10 mg Mupirocin (Mupirocin 2 % Oint 22 Gm Tube) 1 appl TOPICAL TID [facility]; Protocol Last Admin: 03/30/22 20:38 Dose: 1 appl Risperidone (Risperidone 3 Mg Tablet) 3 mg PO DAILY [facility] Last Admin: 03/30/22 09:18 Dose: 3 mg Risperidone (Risperidone 2 Mg Tablet) 4 mg PO BEDTIME [facility] Last Admin: 03/30/22 20:39 Dose: 4 mg Trazodone HCl (Trazodone Hcl 50 Mg Tablet) 150 mg PO BEDTIME [facility] Last Admin: 03/30/22 20:40 Dose: 150 mg Trazodone HCl (Trazodone Hcl 50 Mg Tablet) 50 mg PO BEDTIME PRN PRN Reason: Insomnia Last Admin: 03/28/22 20:19 Dose: 50 mg Vitamin E (Vitamin E (Dl,Tocopheryl Acet) 180 Mg (400 Unit) Capsule) 180 mg PO DAILY [facility] Last Admin: 03/30/22 09:18 Dose: 180 mg Allergies Allergies Allergy/AdvReac Type Severity Reaction Status Date / Time No Known Allergies Allergy Verified 03/04/22 11:34 Assessment & Plan Assessment & Plan (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 maintain strong boundaries. message left for Dr. Dash 03/14. 03/15: no call-back from vijaya.? mtg held with other outpt treaters.? add valium 5 mg TID for anxiety. 03/16 Continue current treatment plan 03/17 hospitalist consult to eval and treat back rash/lesions 03/18: increase valium to 7 mg TID for anxiety.? decrease VPA by 500 mg daily, from 2750 to 2250. case discussed with vijaya. 03/19: somewhat sedated from regimen, likely will lessen as VPA tapered. no med changes today. continue current mgmt. 03/20: sedation worsened today. both VPA and valium cut back today (VPA by another 500 mg, to 250/1500; valium by 6 mg, from 7 TID to 5 TID). mtg with oupt providers tomorrow afternoon. 03/21: stably tired/sedated. will continue current mgmt for today to allow medications to more approach steady state as large change was just made as of this morning (and he does appear less sedated this morning). long Tx planning mtg held with outpt providers. 03/22: decrease valium from 5 TID to 4 TID due to sedation. otherwise continue current mgmt. hoping for discharge next week sometime. 03/23: decrease VPA from 1750 to 1500, which is the dose he had been on coming into the fall. otherwise continue current mgmt. 03/24: continue current mgmt. still tired, but less so than before. grabbed food services worker, shaking him, yesterday. 03/25: continue current mgmt. episode of yelling at RNs last NOC and pounding the wall when he was given his medications later than his preference. 03/26: tiredness continues. continue current mgmt to allow new steady state for VPA and valium to be achieved. pt requesting not to wait until after discharge to start an anti-depressant medication, requesting collaboration with vijaya on that topic. hoping for DC prior to . 03/27 continue current medications.03/27 continue current medications. 03/28 continue current medications. 03/29 continue tx. plan for dc sunday 04/01. 03/30: No med changes 03/31: Pt does not want to dc on 04/01, wants collaboration with Dr. Dash, OP psych provider I spent minutes with the patient and/or on the patient floor today, greater than?50% of which was spent counseling/coordinating care. Patient educated on: medication risk/benefits and therapeutic strategies Reason for contiued inpatient stay Substantial Risk for: harm to others, rapid decompensation and med/psych decompensation
[2022-03-31] MEDS: diazePAM 2 MG TABLET 4 MG PO ×3 (09:25→20:04)
[2022-03-31] MEDS: FLUoxetine HCl 20 MG CAPSULE 80 MG PO (09:25)
[2022-03-31] MEDS: risperiDONE 3 MG TABLET PO (09:25)
[2022-03-31] MEDS: Vitamin E (Dl,Tocopheryl Acet) 180 MG (400 UNIT) CAPSULE PO (09:25)
[2022-03-31] MEDS: Memantine HCl 10 MG TABLET PO ×2 (09:26→20:04)
[2022-03-31 20:00] VITALS: BP 138/84; RESP 18; TEMP 36.4; O2SAT 96
[2022-03-31] MEDS: risperiDONE 2 MG TABLET 4 MG PO (20:05)
[2022-03-31] MEDS: Divalproex Sodium 500 MG TABLET.DR 1500 MG PO (20:05)
[2022-03-31] MEDS: Melatonin 3 MG TABLET 6 MG PO (20:05)
[2022-03-31] MEDS: traZODone HCL 50 MG TABLET 150 MG PO (20:05)
[2022-04-01 09:20] VITALS: RESP 16
[2022-04-01] MEDS: Memantine HCl 10 MG TABLET PO ×2 (09:23→20:13)
[2022-04-01] MEDS: diazePAM 2 MG TABLET 4 MG PO ×3 (09:24→20:13)
[2022-04-01] MEDS: Vitamin E (Dl,Tocopheryl Acet) 180 MG (400 UNIT) CAPSULE PO (09:24)
[2022-04-01] MEDS: FLUoxetine HCl 20 MG CAPSULE 80 MG PO (09:24)
[2022-04-01] MEDS: risperiDONE 3 MG TABLET PO (09:24)
--- NOTE | 2022-04-01 13:26 | P.PNPSI_ITS ---
Subjective Subjective Date of Service: 04/01/22 Reason For Visit: aggression Subjective Notes: Conditional Voluntary Interim History: Pt was scheduled to be discharged today. However, pt reports he is not ready to be discharge. He reports his mood is up and down. Pt reports he was yelling at peer and at staff over the weekend and worries that he will hurt someone if discharged. He reports that's not a life he wants to live and thinks of poisoning him with poisonous flower. His team also report concern about discharge stating that pt appeared irritable during meeting last Friday, labile and they worried this were signs of impending aggression. discharge was cancelled, at this moment, plan to adjust dose of depakote, pt has appeared much better than even prior admission, especially last week, there is a disconnect between clinical observation while he has been on the unit and reports from OP providers. Do suspect pt does feel very comfortable on the unit, some resistance to leaving. Medication Compliance: Yes Side effects from medications: No Attending Groups: Intermittent Review of Systems Review of Systems General: No fevers, malaise, unintentional weight loss Cardiovascular: No chest pain, palpitations, or leg edema Respiratory: No shortness of breath, wheezing, cough MSK: No myalgia, back pain Skin: No rashes or lesions Yes all other systems are reviewed and are negative Mental Status Exam Mental Status Exam Narrative: A&O. unkempt appearance, disheveled.? fair eye contact, attentive. No Tics or Tremors.? appears tired.? cooperative.? speech nml rate, nml amount.? No prolonged speech latency or dysarthria.? word-finding difficulties due to expressive aphasia.? affect is hypo-intense, non-labile.? no SI/HI/AVH expressed.? Insight/ Judgment limited. OCD bx, i.e. spitting into his shirt repetively, poor physical boundaries. Diagnostics Vital Signs (24Hr): BMI result Body Mass Index 32.2 Labs Results: 03/08/22 18:46 03/13/22 08:55 Medications Medications Current Medications Acetaminophen (Acetaminophen 325 Mg Tablet) 650 mg PO Q6H PRN PRN Reason: Headache/Pain Mild Scale (1-3) Al Hydroxide/Mg Hydroxide (Magnesium Hydrox/Alum Hydrox 30 Ml Oral.Susp) 30 ml PO Q6H PRN PRN Reason: Heartburn/Nausea Last Admin: 03/27/22 22:02 Dose: 30 ml Diazepam (Diazepam 2 Mg Tablet) 4 mg PO TID [facility] Last Admin: 04/01/22 20:13 Dose: 4 mg Divalproex Sodium (Divalproex Sodium Er 500 Mg Tab.Er.24h) 1,500 mg PO BEDTIME [facility] Last Admin: 04/01/22 20:13 Dose: 1,500 mg Divalproex Sodium (Divalproex Sodium Er 250 Mg Tab.Er.24h) 250 mg PO BEDTIME [facility] Last Admin: 04/01/22 20:13 Dose: 250 mg Fluoxetine HCl (Fluoxetine Hcl 20 Mg Capsule) 80 mg PO DAILY [facility] Last Admin: 04/01/22 09:24 Dose: 80 mg Fluticasone Propionate (Fluticasone Propionate Nasal 16 Gm Roberts) 1 spray NOSTRIL-B BID PRN PRN Reason: Nasal Congestion Last Admin: 03/28/22 20:34 Dose: 1 spray Guaifenesin (Guaifenesin 100 Mg/5 Ml Liquid) 5 ml PO Q4H PRN PRN Reason: productive cough Last Admin: 03/11/22 09:17 Dose: 5 ml Hydroxyzine HCl (Hydroxyzine Hcl 25 Mg Tablet) 25 mg PO TID PRN PRN Reason: Anxiety Last Admin: 03/11/22 20:02 Dose: 25 mg Hydroxyzine HCl (Hydroxyzine Hcl 25 Mg Tablet) 25 mg PO Q6H PRN PRN Reason: Anxiety Last Admin: 03/15/22 00:39 Dose: 25 mg Loperamide HCl (Loperamide Hcl 2 Mg Capsule) 2 mg PO Q8H PRN PRN Reason: loose stool Magnesium Hydroxide (Milk Of Magnesia 30 Ml Oral.Susp) 30 ml PO DAILY PRN PRN Reason: Constipation Melatonin (Melatonin 3 Mg Tablet) 6 mg PO BEDTIME [facility] Last Admin: 04/01/22 20:13 Dose: 6 mg Memantine (Memantine Hcl 10 Mg Tablet) 10 mg PO BID [facility] Last Admin: 04/01/22 20:13 Dose: 10 mg Mupirocin (Mupirocin 2 % Oint 22 Gm Tube) 1 appl TOPICAL TID [facility]; Protocol Last Admin: 04/01/22 20:16 Dose: Not Given Risperidone (Risperidone 3 Mg Tablet) 3 mg PO DAILY [facility] Last Admin: 04/01/22 09:24 Dose: 3 mg Risperidone (Risperidone 2 Mg Tablet) 4 mg PO BEDTIME [facility] Last Admin: 04/01/22 20:13 Dose: 4 mg Trazodone HCl (Trazodone Hcl 50 Mg Tablet) 150 mg PO BEDTIME [facility] Last Admin: 04/01/22 20:13 Dose: 150 mg Trazodone HCl (Trazodone Hcl 50 Mg Tablet) 50 mg PO BEDTIME PRN PRN Reason: Insomnia Last Admin: 03/28/22 20:19 Dose: 50 mg Vitamin E (Vitamin E (Dl,Tocopheryl Acet) 180 Mg (400 Unit) Capsule) 180 mg PO DAILY [facility] Last Admin: 04/01/22 09:24 Dose: 180 mg Allergies Allergies Allergy/AdvReac Type Severity Reaction Status Date / Time No Known Allergies Allergy Verified 03/04/22 11:34 Assessment & Plan Assessment & Plan (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 maintain strong boundaries. message left for Dr. Dash 03/14. 03/15: no call-back from vijaya.? mtg held with other outpt treaters.? add valium 5 mg TID for anxiety. 03/16 Continue current treatment plan 03/17 hospitalist consult to eval and treat back rash/lesions 03/18: increase valium to 7 mg TID for anxiety.? decrease VPA by 500 mg daily, from 2750 to 2250. case discussed with vijaya. 03/19: somewhat sedated from regimen, likely will lessen as VPA tapered. no med changes today. continue current mgmt. 03/20: sedation worsened today. both VPA and valium cut back today (VPA by another 500 mg, to 250/1500; valium by 6 mg, from 7 TID to 5 TID). mtg with oupt providers tomorrow afternoon. 03/21: stably tired/sedated. will continue current mgmt for today to allow medications to more approach steady state as large change was just made as of this morning (and he does appear less sedated this morning). long Tx planning mtg held with outpt providers. 03/22: decrease valium from 5 TID to 4 TID due to sedation. otherwise continue current mgmt. hoping for discharge next week sometime. 03/23: decrease VPA from 1750 to 1500, which is the dose he had been on coming into the fall. otherwise continue current mgmt. 03/24: continue current mgmt. still tired, but less so than before. grabbed food services worker, shaking him, yesterday. 03/25: continue current mgmt. episode of yelling at RNs last NOC and pounding the wall when he was given his medications later than his preference. 03/26: tiredness continues. continue current mgmt to allow new steady state for VPA and valium to be achieved. pt requesting not to wait until after discharge to start an anti-depressant medication, requesting collaboration with vijaya on that topic. hoping for DC prior to . 03/27 continue current medications.03/27 continue current medications. 03/28 continue current medications. 03/29 continue tx. plan for dc sunday 04/01. 03/30: No med changes 03/31: Pt does not want to dc on 04/01, wants collaboration with Dr. Dash, OP psych provider 04/01 increase depakote, given that depakote level on 03/30 42.5 I spent minutes with the patient and/or on the patient floor today, greater than?50% of which was spent counseling/coordinating care. Reason for contiued inpatient stay Substantial Risk for: inability to function
[2022-04-01] MEDS: traZODone HCL 50 MG TABLET 150 MG PO (20:13)
[2022-04-01] MEDS: Divalproex Sodium ER 500 MG TAB.ER.24H 1500 MG PO (20:13)
[2022-04-01] MEDS: Melatonin 3 MG TABLET 6 MG PO (20:13)
[2022-04-01] MEDS: Divalproex Sodium ER 250 MG TAB.ER.24H PO (20:13)
[2022-04-01] MEDS: risperiDONE 2 MG TABLET 4 MG PO (20:13)
[2022-04-02] MEDS: FLUoxetine HCl 20 MG CAPSULE 80 MG PO (09:25)
[2022-04-02] MEDS: Memantine HCl 10 MG TABLET PO ×2 (09:26→20:04)
[2022-04-02] MEDS: risperiDONE 3 MG TABLET PO (09:26)
[2022-04-02] MEDS: Vitamin E (Dl,Tocopheryl Acet) 180 MG (400 UNIT) CAPSULE PO (09:26)
[2022-04-02] MEDS: diazePAM 2 MG TABLET 4 MG PO ×3 (09:27→20:04)
--- NOTE | 2022-04-02 16:28 | P.PNPSI_ITS ---
Subjective Subjective Date of Service: 04/02/22 Reason For Visit: aggression Subjective Notes: Conditional Voluntary Interim History: Pt reports sleeping and eating well. Pt denies suicidal ideation or homicidal ideation. He reports he needs more socialization, agrees that he feels comfortable on the unit mainly because he knows the staff and has met more people here, mostly peers, with whom he feels comfortable. This medical technical writer spoke with Dr. Nguyen who reports pt has been on multiple antidepressants for OCD, including goal standard anafranil. One suggestion was adding low dose lithium, however, Gerardo reports he has been on it made me worse. Medication Compliance: Yes Side effects from medications: No Attending Groups: Yes Review of Systems Review of Systems General: No fevers, malaise, unintentional weight loss Cardiovascular: No chest pain, palpitations, or leg edema Respiratory: No shortness of breath, wheezing, cough MSK: No myalgia, back pain Skin: No rashes or lesions Yes all other systems are reviewed and are negative Mental Status Exam Mental Status Exam Narrative: A&O. unkempt appearance, disheveled.? fair eye contact, attentive. No Tics or Tremors.? appears tired.? cooperative.? speech nml rate, nml amount.? No prolonged speech latency or dysarthria.? word-finding difficulties due to expressive aphasia.? affect is hypo-intense, non-labile.? no SI/HI/AVH expressed.? Insight/ Judgment limited. OCD bx, i.e. spitting into his shirt repetively, poor physical boundaries. Diagnostics Vital Signs (24Hr): Vital Signs - 24 hr 04/02/22 20:05 04/03/22 08:19 Temperature 98.2 F 97.5 F Pulse Rate 84 82 Respiratory Rate 16 14 Blood Pressure 125/89 132/82 Pulse Oximetry 94 93 Oxygen Delivery Method Room Air Room Air BMI result Body Mass Index 32.2 Labs Results: 03/08/22 18:46 03/13/22 08:55 Labs: Laboratory Results - last 48 hr 04/03/22 08:31 Valproic Acid 73.0 Medications Medications Current Medications Acetaminophen (Acetaminophen 325 Mg Tablet) 650 mg PO Q6H PRN PRN Reason: Headache/Pain Mild Scale (1-3) Al Hydroxide/Mg Hydroxide (Magnesium Hydrox/Alum Hydrox 30 Ml Oral.Susp) 30 ml PO Q6H PRN PRN Reason: Heartburn/Nausea Last Admin: 03/27/22 22:02 Dose: 30 ml Diazepam (Diazepam 2 Mg Tablet) 4 mg PO TID [facility] Last Admin: 04/03/22 09:37 Dose: 4 mg Divalproex Sodium (Divalproex Sodium Er 500 Mg Tab.Er.24h) 2,000 mg PO BEDTIME [facility] Last Admin: 04/02/22 20:04 Dose: 2,000 mg Fluoxetine HCl (Fluoxetine Hcl 20 Mg Capsule) 80 mg PO DAILY [facility] Last Admin: 04/03/22 09:37 Dose: 80 mg Fluticasone Propionate (Fluticasone Propionate Nasal 16 Gm Landrum) 1 spray NOSTRIL-B BID PRN PRN Reason: Nasal Congestion Last Admin: 03/28/22 20:34 Dose: 1 spray Guaifenesin (Guaifenesin 100 Mg/5 Ml Liquid) 5 ml PO Q4H PRN PRN Reason: productive cough Last Admin: 03/11/22 09:17 Dose: 5 ml Hydroxyzine HCl (Hydroxyzine Hcl 25 Mg Tablet) 25 mg PO TID PRN PRN Reason: Anxiety Last Admin: 03/11/22 20:02 Dose: 25 mg Hydroxyzine HCl (Hydroxyzine Hcl 25 Mg Tablet) 25 mg PO Q6H PRN PRN Reason: Anxiety Last Admin: 03/15/22 00:39 Dose: 25 mg Loperamide HCl (Loperamide Hcl 2 Mg Capsule) 2 mg PO Q8H PRN PRN Reason: loose stool Magnesium Hydroxide (Milk Of Magnesia 30 Ml Oral.Susp) 30 ml PO DAILY PRN PRN Reason: Constipation Melatonin (Melatonin 3 Mg Tablet) 6 mg PO BEDTIME [facility] Last Admin: 04/02/22 20:04 Dose: 6 mg Memantine (Memantine Hcl 10 Mg Tablet) 10 mg PO BID [facility] Last Admin: 04/03/22 09:37 Dose: 10 mg Mupirocin (Mupirocin 2 % Oint 22 Gm Tube) 1 appl TOPICAL TID [facility]; Protocol Last Admin: 04/03/22 09:40 Dose: Not Given Risperidone (Risperidone 3 Mg Tablet) 3 mg PO DAILY [facility] Last Admin: 04/03/22 09:36 Dose: 3 mg Risperidone (Risperidone 2 Mg Tablet) 4 mg PO BEDTIME [facility] Last Admin: 04/02/22 20:04 Dose: 4 mg Trazodone HCl (Trazodone Hcl 50 Mg Tablet) 150 mg PO BEDTIME [facility] Last Admin: 04/02/22 20:04 Dose: 150 mg Trazodone HCl (Trazodone Hcl 50 Mg Tablet) 50 mg PO BEDTIME PRN PRN Reason: Insomnia Last Admin: 03/28/22 20:19 Dose: 50 mg Vitamin E (Vitamin E (Dl,Tocopheryl Acet) 180 Mg (400 Unit) Capsule) 180 mg PO DAILY [facility] Last Admin: 04/03/22 09:36 Dose: 180 mg Allergies Allergies Allergy/AdvReac Type Severity Reaction Status Date / Time No Known Allergies Allergy Verified 03/04/22 11:34 Assessment & Plan Assessment & Plan (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 maintain strong boundaries. message left for Dr. Dash 03/14. 03/15: no call-back from vijaya.? mtg held with other outpt treaters.? add valium 5 mg TID for anxiety. 03/16 Continue current treatment plan 03/17 hospitalist consult to eval and treat back rash/lesions 03/18: increase valium to 7 mg TID for anxiety.? decrease VPA by 500 mg daily, from 2750 to 2250. case discussed with vijaya. 03/19: somewhat sedated from regimen, likely will lessen as VPA tapered. no med changes today. continue current mgmt. 03/20: sedation worsened today. both VPA and valium cut back today (VPA by another 500 mg, to 250/1500; valium by 6 mg, from 7 TID to 5 TID). mtg with oupt providers tomorrow afternoon. 03/21: stably tired/sedated. will continue current mgmt for today to allow medications to more approach steady state as large change was just made as of this morning (and he does appear less sedated this morning). long Tx planning mtg held with outpt providers. 03/22: decrease valium from 5 TID to 4 TID due to sedation. otherwise continue current mgmt. hoping for discharge next week sometime. 03/23: decrease VPA from 1750 to 1500, which is the dose he had been on coming into the fall. otherwise continue current mgmt. 03/24: continue current mgmt. still tired, but less so than before. grabbed food services worker, shaking him, yesterday. 03/25: continue current mgmt. episode of yelling at RNs last NOC and pounding the wall when he was given his medications later than his preference. 03/26: tiredness continues. continue current mgmt to allow new steady state for VPA and valium to be achieved. pt requesting not to wait until after discharge to start an anti-depressant medication, requesting collaboration with vijaya on that topic. hoping for DC prior to . 03/27 continue current medications.03/27 continue current medications. 03/28 continue current medications. 03/29 continue tx. plan for dc sunday 04/01. 03/30: No med changes 03/31: Pt does not want to dc on 04/01, wants collaboration with Dr. Dash, OP psych provider 04/01 increase depakote, given that depakote level on 03/30 42.5 04/02 continue tx. I spent minutes with the patient and/or on the patient floor today, greater than?50% of which was spent counseling/coordinating care. Reason for contiued inpatient stay Substantial Risk for: harm to self
[2022-04-02] MEDS: traZODone HCL 50 MG TABLET 150 MG PO (20:04)
[2022-04-02] MEDS: Melatonin 3 MG TABLET 6 MG PO (20:04)
[2022-04-02] MEDS: Divalproex Sodium ER 500 MG TAB.ER.24H 2000 MG PO (20:04)
[2022-04-02] MEDS: risperiDONE 2 MG TABLET 4 MG PO (20:04)
[2022-04-02 20:05] VITALS: BP 125/89; PULSE 84; RESP 16; TEMP 36.8; O2SAT 94
[2022-04-03 08:19] VITALS: BP 132/82; PULSE 82; RESP 14; TEMP 36.4; O2SAT 93
[2022-04-03] MEDS: risperiDONE 3 MG TABLET PO (09:36)
[2022-04-03] MEDS: Vitamin E (Dl,Tocopheryl Acet) 180 MG (400 UNIT) CAPSULE PO (09:36)
[2022-04-03] MEDS: Memantine HCl 10 MG TABLET PO (09:37)
[2022-04-03] MEDS: FLUoxetine HCl 20 MG CAPSULE 80 MG PO (09:37)
[2022-04-03] MEDS: diazePAM 2 MG TABLET 4 MG PO ×2 (09:37→14:20)
--- NOTE | 2022-04-03 12:55 | P.DS_ITS ---
DS: Providers Provider Date of Service: 04/03/22 Date of admission: 03/12/22 14:30 Primary care physician: Unknown Physician Consults: 03/17/22 11:39 Consult to Hospitalist Routine Consulting Provider: Hospitalist Reason For Exam: new skin rash on back unknown etioogy 03/21/22 16:48 Consult to Hospitalist Routine Consulting Provider: Hospitalist Reason For Exam: scleral injection; R/O conjunctivitis DS: Diagnosis Discharge Diagnosis (1) alcohol syndrome: Status: Acute (2) OCD (obsessive compulsive disorder): Status: Acute (3) Expressive language impairment: Status: Acute (4) Intermittent explosive disorder in adult: Status: Acute DS: Medications Discharge Medications Home Medications: Home Medications Medication Instructions Recorded Confirmed fluticasone propionate 50 1 spray intranasal BID PRN Nasal 10/26/21 03/08/22 mcg/actuation nasal Congestion spray,suspension hydroxyzine HCl 25 mg tablet 1 tab PO TID PRN Anxiety 10/26/21 03/08/22 melatonin 3 mg tablet 6 mg PO BEDTIME 10/26/21 03/08/22 memantine 10 mg tablet 1 tab PO BID 10/26/21 03/08/22 risperidone 4 mg tablet 1 tab PO BEDTIME 10/26/21 03/08/22 trazodone 150 mg tablet 1 tab PO BEDTIME 10/26/21 03/08/22 vitamin E (dl, acetate) 180 mg 400 unit PO DAILY 10/26/21 03/08/22 (400 unit) capsule risperidone 3 mg tablet 1 tab PO DAILY 02/03/22 03/08/22 fluoxetine 40 mg capsule 80 mg PO DAILY 02/14/22 03/08/22 Previous Rx's Medication Instructions Recorded guaifenesin 100 mg/5 mL oral liquid 200 mg (10 mL) PO Q4H PRN 02/25/22 productive cough 5 days #473 mL loperamide 2 mg capsule 2 mg PO Q8H PRN loose stool 10 03/04/22 days #30 caps diazepam 2 mg tablet 4 mg PO TID 30 days #180 tabs 04/03/22 divalproex 500 mg tablet,extended 2,000 mg PO BEDTIME 30 days #120 04/03/22 release 24 hr tabs lithium carbonate 300 mg tablet 150 mg PO DAILY 30 days #15 tabs 04/03/22 Mental Status Exam Mental Status Exam Narrative: A&O. unkempt appearance, disheveled.? fair eye contact, attentive. No Tics or Tremors.? appears less tired.? cooperative.? speech nml rate, nml amount.? No prolonged speech latency or dysarthria.? word-finding difficulties due to expressive aphasia.? affect is normo-intense, non-labile.? no SI/HI/AVH.? Insight/ Judgment limited. OCD bx, i.e. spitting into his shirt repetitively, poor physical boundaries. Data Data Completed and Pending Completed studies during hospitalization [Text1]: 03/29/22 04/03/22 18:27 08:31 Valproic Acid 42.5 L 73.0 DS: Summary Hospital Course Hospital Course: per 03/13 admission note: per crisis eval, pt presented for the third time in recent months with the identical complaint.? in the context of limit-setting at his residential program, he demonstrated physical aggression by grabbing the person he felt was at fault.? the police were called, pt stated he felt unsafe in the community, and police brought pt to the ED.? he believes his medications need to be adjusted.? of note, and MARLA attempted to meet with pt and insisted pt come to the interview room rather than follow pt back to his own room for interview.? pt refused to come to the interview room and eventually began yelling in the hallway demanding MD and MARLA be brought to his room, yelling, do i have to punch someone?! ? and banging loudly and repeatedly on the wall.? staff managed to escort him back to his room.? he asked to meet with MARLA and again an hour or two later and MARLA and went to the interview room to await pt.? staff attempted to escort him to the interview room but he insisted and MARLA come to his room first for an elbow bump.? and MARLA declined. Past Psychiatric History: Inpatient: last admisisons [facility] February 2022, May 2021.? OP: [facility] Dr. Jack Nguyen Suicide attempts: none HIB: h/o pulling hair of correction staff and squeezing arm of correction staff sufficiently so as to bruise it. Past trials: depakote, risperidone, namenda Medical Evaluation Reviewed: Yes PMFSH Medical History? Anal fistula Anxiety and depression Obsessive compulsive disorder Screening for diabetes mellitus Screening for hyperlipidemia Surgical History? No pertinent past surgical history Family History: unknown- pt did not know Social History: lives in . Close to both parents, no children of his own not . Substance History: none Trauma History: denies Precis: 03/14:? continue current meds for now.? maintain strong boundaries.? message left for Dr. Dash 03/14. 03/15: no call-back from vijaya.? mtg held with other outpt treaters.? add valiu m 5 mg TID for anxiety. 03/16 Continue current treatment plan 03/17 hospitalist consult to eval and treat back rash/lesions 03/18: increase valium to 7 mg TID for anxiety.? decrease VPA by 500 mg daily, from 2750 to 2250.? case discussed with vijaya. 03/19: somewhat sedated from regimen, likely will lessen as VPA tapered.? no med changes today. ? continue current mgmt. 03/20: sedation worsened today.? both VPA and valium cut back today (VPA by another 500 mg, to 250/1500; valium by 6 mg, from 7 TID to 5 TID).? mtg with oupt providers tomorrow afternoon. 03/21: stably tired/sedated.? will continue current mgmt for today to allow medications to more approach steady state as large change was just made as of this morning (and he does appear less sedated this morning).? long Tx planning mtg held with outpt providers. 03/22: decrease valium from 5 TID to 4 TID due to sedation.? otherwise continue current mgmt.? hoping for discharge next week sometime. 03/23: decrease VPA from 1750 to 1500, which is the dose he had been on coming into the fall.? otherwise continue current mgmt. 03/24: continue current mgmt.? still tired, but less so than before.? grabbed food services worker, shaking him, yesterday. 03/25: continue current mgmt.? episode of yelling at RNs last NOC and pounding the wall when he was given his medications later than his preference. 03/26: tiredness continues.? continue current mgmt to allow new steady state for VPA and valium to be achieved.? pt requesting not to wait until after discharge to start an anti-depressant medication, requesting collaboration with vijaya on that topic.? hoping for DC prior to . 03/27 continue current medications.03/27 continue current medications. 03/28 continue current medications. 03/29 continue tx. plan for dc sunday 04/01. 03/30: No med changes 03/31: Pt does not want to dc on 04/01, wants collaboration with Dr. Dash, OP psych provider 04/01 increase depakote, given that depakote level on 03/30 42.5 04/02 continue tx. 04/03: VPA level 73. pt requesting discharge to outpt services today so he may attend gathering with family. discussion had re whether now is a good time to add lithium to regimen, ultimately it was decided against. outpt supports informed of plan, pt discharged to home with aftercare in place. Time Spent with Patient Time attestation: Total time spent providing and/or coordinating discharge services: Time spent: Greater than 30 minutes Discharge Plan Discharge Anticipated Discharge Date/Time: 04/03/22 16:00 Patient Disposition: Home, Self-Care Discharge Diagnosis: Intermittent Explosive Disorder OCD Alcohol Syndrome Expressive Language Disorder Referrals: Jack Dash (psychiatrist) [Other] - 04/12/22 2:00 pm (Telehealth appointment) [facility] [Provider Group] - 1 Week Discharge Medications: New diazepam 2 mg Tablet 4 mg PO TID 30 Days Qty: 180 0RF divalproex 500 mg Tablet Extended Release 24 Hr 2,000 mg PO BEDTIME 30 Days Qty: 120 0RF Continued risperidone 4 mg tablet 1 tab PO BEDTIME trazodone 150 mg tablet 1 tab PO BEDTIME vitamin E (dl, acetate) 180 mg (400 unit) capsule 400 unit PO DAILY melatonin 3 mg tablet 6 mg PO BEDTIME hydroxyzine HCl 25 mg tablet 1 tab PO TID PRN (Reason: Anxiety) memantine 10 mg tablet 1 tab PO BID fluticasone propionate 50 mcg/actuation spray,suspension 1 spray intranasal BID PRN (Reason: Nasal Congestion) risperidone 3 mg tablet 1 tab PO DAILY fluoxetine 40 mg capsule 80 mg PO DAILY guaifenesin 100 mg/5 mL Liquid 200 mg PO Q4H PRN (Reason: productive cough) 5 Days Qty: 473 0RF loperamide 2 mg capsule 2 mg PO Q8H PRN (Reason: loose stool) 10 Days Qty: 30 0RF Discontinued divalproex 250 mg Tablet,Delayed Release (Dr/Ec) 1,250 mg PO DAILY 30 Days Qty: 150 0RF divalproex 500 mg Tablet,Delayed Release (Dr/Ec) 1,500 mg PO BEDTIME 30 Days Qty: 90 0RF Discharge Orders: Discharge Order (Routine); Ordered 04/03/22 Ordered By: Ayaan Wiggins Diet: Advance to usual diet Activity on Discharge: As tolerated Stand Alone Forms: Patient Portal Discharge page, Community Support Care Plan Goals: remain safe and stable in the outpatient treatment setting Health Concerns: obesity Plan of Treatment: take medications as prescribed, attend appointments as scheduled Assessment: not at imminent risk of harm to self or others Discharge Date/Time: 04/03/22 15:55
--- NOTE | 2022-04-03 17:01 | PC.NURSE ---
Patient easily engaged. Reports feeling anxious about Lyft ride home. Denies SI/HI as this time. Denies A/V hallucinations at this time. None of that . Discharge paperwork reviewed however patient stated I don't understand that . Did show some knowledge of medications he is taking upon review. Stated he was not going to take [place]. Crisis numbers provided to patient. All belongings taken with patient. No ETIENNE for PCP signed, informed of walk in clinic.
== END 2022-04-03 15:55 | disposition home or self-care (01) | DRG 883 ==
LOC: HO.ED 03-12 13:00 → HO.PADLT16 03-12 15:07
PROVIDERS: Nurse Practitioner Family; Social Worker; Admitting Provider Psychiatry & Neurology Psychiatry; Emergency Provider Emergency Medicine; Visit Provider Psychiatry & Neurology Psychiatry
DX: F63.81 Intermittent explosive disorder (principal); F42.9 Obsessive-compulsive disorder, unspecified; L73.9 Follicular disorder, unspecified; F80.1 Expressive language disorder; B95.8 Unspecified staphylococcus as the cause of diseases classified elsewhere; Q86.0 Fetal alcohol syndrome (dysmorphic); Z20.822 Contact with and (suspected) exposure to COVID-19; Z23 Encounter for immunization; Z87.891 Personal history of nicotine dependence; Z79.51 Long term (current) use of inhaled steroids; Z79.899 Other long term (current) drug therapy
CPT/HCPCS: 0241U; 36415; 80048; 80053; 80061; 80164; 80307; 82140; 85025; 90686; 99285

== ENCOUNTER 2022-10-07 19:02 | Inpatient (IN) | payer OTHER, SELFPAY ==
[2022-10-07 19:06] VITALS: BP 125/89; PULSE 90; RESP 18; TEMP 36.6; O2SAT 94; BMI 33.4
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
[2022-10-07 19:39] LABS: Appearance Urine Clear; Color Urine Yellow; Glucose Urine UA Negative (Negative); Leukocyte Esterase Urine Negative (Negative); Nitrite Urine Negative (Negative); Specific Gravity - Urine 1.025 (1.005-1.025); Urine Blood Negative (Negative); Urine Ketones Trace mg/dL (Negative); Urine Protein Trace mg/dL (Neg-Trace)
[2022-10-07 19:44] LABS: Amphetamine Screen Urine Not Detected (Not Detect); Barbiturates, Urine Not Detected (Not Detect); Benzodiazepines Screen Urine POSITIVE (Not Detect); Cannabinoid Screen Urine Not Detected (Not Detect); Cocaine Screen Urine Not Detected (Not Detect); Fentanyl, urine Not Detected (Not Detect); Opiate Screen Urine Not Detected (Not Detect); Phencyclidine Screen Urine Not Detected (Not Detect)
[2022-10-07 19:50] LABS: COVID-19 Test Negative (Negative); IDNOW Serial# 08D9AD1C
[2022-10-07 19:52] LABS: MANUAL DIFF FLAG NO
[2022-10-07 19:58] LABS: Basophils Absolute Auto 0.1 X10*3/uL (0.0-0.2); Basophils Percent Auto 0.5 % (0-2); Eosinophils Absolute Auto 0.2 X10*3/uL (0.0-0.4); Eosinophils Percent Auto 1.5 % (0-4); Hematocrit 42.1 % (42.0-52.0); Hemoglobin 14.2 g/dl (14.0-18.0); Imm Gran Abs Auto 0.08 X10*3/uL (0.00-0.03); Imm Gran Pct Auto 0.7 % (0.0-0.4); Lymphocytes Percent Auto 34.2 % (20-40); Mean Corpuscular HGB Conc 33.7 g/dl (31.0-36.0); Mean Corpuscular Hemoglobin 30.1 pg (27.0-33.0); Mean Corpuscular Volume 89.4 fL (80.0-98.0); Mean Platelet Volume 9.6 fL (9.4-12.4); Monocytes Absolute Auto 1.3 X10*3/uL (0.1-1.2); Monocytes Percent Auto 10.7 % (2-11); Neutrophils Absolute Auto 6.1 x10*3/uL (2.0-8.3); Neutrophils Percent Auto 52.4 % (45-73); Platelet Count 252 X10*3/uL (160-400); Red Blood Count 4.71 X10*6/uL (4.60-5.80); Red Cell Distribution Width 11.8 % (11.0-16.0); White Blood Count 11.7 X10*3/uL (4.8-10.8)
[2022-10-07 20:09] LABS: Valproate 49.7 mcg/mL (50.0-100.0)
[2022-10-07 20:19] LABS: Alanine Aminotransferase 20 U/L (0-40); Albumin Level 4.1 g/dL (3.5-5.0); Alkaline Phosphatase 63 U/L (39-117); Anion Gap 11 (12-20); Aspartate Amino Transferase 14 U/L (5-37); Bilirubin Total 0.3 mg/dL (0.0-1.0); Blood Urea Nitrogen 8 mg/dL (9-16); Calcium 9.3 mg/dL (8.4-10.2); Carbon Dioxide 31 mmol/L (22-29); Chloride 104 mmol/L (96-108); Estimated Glomerular Filt Rate > 60; Ethanol < 10 mg/dL; Glucose Random 113 mg/dL (60-115); Potassium 3.6 mmol/L (3.3-5.1); Sodium 142 mmol/L (135-145); Total Protein 6.9 g/dL (6.5-8.0)
[2022-10-08 05:56] VITALS: RESP 20
--- NOTE | 2022-10-08 05:56 | PC.NURSE ---
Patient slept through the night, no distress observed/reported, med rec completed/approved/MAR active, care consult ordered for aggression/pending evaluation, behavior non concerning, refused shift Vital sign assessment, will continue to monitor.
[2022-10-08] MEDS: risperiDONE 3 MG TABLET PO (08:15)
[2022-10-08] MEDS: Memantine HCl 10 MG TABLET PO ×2 (08:15→20:56)
[2022-10-08] MEDS: FLUoxetine HCl 20 MG CAPSULE 80 MG PO (08:15)
[2022-10-08] MEDS: diazePAM 2 MG TABLET 4 MG PO ×3 (08:15→20:57)
[2022-10-08] MEDS: Vitamin E (Dl,Tocopheryl Acet) 180 MG (400 UNIT) CAPSULE PO (09:08)
--- NOTE | 2022-10-08 12:59 | ECG_ITS ---
Test Reason : CHECK FOR PROLONG QT Blood Pressure : / mmHG Vent. Rate : 066 BPM Atrial Rate : 066 BPM P-R Int : 168 ms QRS Dur : 102 ms QT Int : 426 ms P-R-T Axes : 060 046 041 degrees QTc Int : 446 ms Normal sinus rhythm Possible Left atrial enlargement Borderline ECG When compared with ECG of 14-FEB-2022 20:02, No significant change was found Referred By: Generic ED Physician Electronically Signed By:WINDY MELTON MD
[2022-10-08] MEDS: Lurasidone HCl 80 MG TABLET PO (16:16)
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
[2022-10-08 17:55] VITALS: BP 143/78; PULSE 66; RESP 15; TEMP 36.3; O2SAT 95
[2022-10-08 20:07] VITALS: BP 138/72; PULSE 68; RESP 16; TEMP 36.8; O2SAT 95
[2022-10-08] MEDS: risperiDONE 2 MG TABLET 4 MG PO (20:57)
[2022-10-08] MEDS: Melatonin 3 MG TABLET 6 MG PO (20:58)
[2022-10-08] MEDS: traZODone HCL 50 MG TABLET 150 MG PO (20:58)
[2022-10-08] MEDS: Divalproex Sodium ER 500 MG TAB.ER.24H 2000 MG PO (20:59)
[2022-10-09 08:10] VITALS: RESP 18
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
[2022-10-09] MEDS: FLUoxetine HCl 20 MG CAPSULE 80 MG PO (09:20)
[2022-10-09] MEDS: diazePAM 2 MG TABLET 4 MG PO ×3 (09:21→20:08)
[2022-10-09] MEDS: risperiDONE 3 MG TABLET PO (09:22)
[2022-10-09] MEDS: Vitamin E (Dl,Tocopheryl Acet) 180 MG (400 UNIT) CAPSULE PO (09:22)
[2022-10-09] MEDS: Memantine HCl 10 MG TABLET PO ×2 (09:22→20:09)
[2022-10-09] MEDS: Lurasidone HCl 80 MG TABLET PO (15:02)
[2022-10-09 20:00] VITALS: BP 140/89; PULSE 80; TEMP 36.7; O2SAT 96
[2022-10-09] MEDS: Melatonin 3 MG TABLET 6 MG PO (20:08)
[2022-10-09] MEDS: risperiDONE 2 MG TABLET 4 MG PO (20:08)
[2022-10-09] MEDS: Divalproex Sodium ER 500 MG TAB.ER.24H 2000 MG PO (20:09)
[2022-10-10] MEDS: FLUoxetine HCl 20 MG CAPSULE 80 MG PO (08:06)
[2022-10-10] MEDS: diazePAM 2 MG TABLET 4 MG PO ×3 (08:07→20:09)
[2022-10-10] MEDS: Memantine HCl 10 MG TABLET PO ×2 (08:08→20:09)
[2022-10-10] MEDS: risperiDONE 3 MG TABLET PO (08:08)
[2022-10-10] MEDS: Vitamin E (Dl,Tocopheryl Acet) 180 MG (400 UNIT) CAPSULE PO (08:09)
--- NOTE | 2022-10-10 12:36 | P.PNPSI_ITS ---
Subjective Subjective Date of Service: 10/10/22 Reason For Visit: Aggressive Behavior Interim History: calm, cooperative. appears sedated late morning. attributes it to lack of his habitual brown whiskey (coffee), but also asks to DC trazodone at HS. agrees to have 50 mg PRN available instead of his usual 150 scheduled. says he is feeling well otherwise, making friends, controlling his behavior. per staff, pleasant. limited participation. spending most of his time in his room. Mental Status Exam Mental Status Exam Narrative: A&O. unkempt appearance, disheveled.? fair eye contact, attentive. No Tics or Tremors.? cooperative.? speech incr rate, nml amount.? No prolonged speech latency or dysarthria.? word-finding difficulties due to expressive aphasia.? affect is normo-intense, non-labile.? no SI/HI/AVH.? Insight/ Judgment limited. OCD, i.e. spitting into his shirt repetitively, poor physical boundaries. Diagnostics Vital Signs (24Hr): Vital Signs - 24 hr 10/09/22 20:00 Temperature 98.1 F Pulse Rate 80 Blood Pressure 140/89 H Pulse Oximetry 96 Oxygen Delivery Method Room Air BMI result Body Mass Index 33.4 Labs 10/07/22 19:46 10/07/22 19:46 Medications Medications Current Medications Acetaminophen (Acetaminophen 325 Mg Tablet) 650 mg PO Q6H PRN PRN Reason: Headache/Pain Mild Scale (1-3) Al Hydroxide/Mg Hydroxide (Magnesium Hydrox/Alum Hydrox 30 Ml Oral.Susp) 30 ml PO Q6H PRN PRN Reason: Heartburn/Nausea Diazepam (Diazepam 2 Mg Tablet) 4 mg PO TID [facility] Last Admin: 10/10/22 08:07 Dose: 4 mg Divalproex Sodium (Divalproex Sodium Er 500 Mg Tab.Er.24h) 2,000 mg PO BEDTIME [facility] Last Admin: 10/09/22 20:09 Dose: 2,000 mg Fluoxetine HCl (Fluoxetine Hcl 20 Mg Capsule) 80 mg PO DAILY [facility] Last Admin: 10/10/22 08:06 Dose: 80 mg Fluticasone Propionate (Fluticasone Propionate Nasal 16 Gm [place]) 1 spray NOSTRIL-B BID PRN PRN Reason: for congestion Guaifenesin (Guaifenesin 100 Mg/5 Ml Liquid) 5 ml PO Q4H PRN PRN Reason: productive cough Hydroxyzine HCl (Hydroxyzine Hcl 25 Mg Tablet) 25 mg PO TID PRN PRN Reason: Anxiety Loperamide HCl (Loperamide Hcl 2 Mg Capsule) 2 mg PO Q8H PRN PRN Reason: loose stool Lurasidone HCl (Lurasidone Hcl 80 Mg Tablet) 80 mg PO DAILY@1400 [facility] Last Admin: 10/09/22 15:02 Dose: 80 mg Magnesium Hydroxide (Milk Of Magnesia 30 Ml Oral.Susp) 30 ml PO DAILY PRN PRN Reason: Constipation Melatonin (Melatonin 3 Mg Tablet) 6 mg PO BEDTIME [facility] Last Admin: 10/09/22 20:08 Dose: 6 mg Memantine (Memantine Hcl 10 Mg Tablet) 10 mg PO BID [facility] Last Admin: 10/10/22 08:08 Dose: 10 mg Nicotine Polacrilex (Nicotine Polacrilex 2 Mg Gum) 4 mg BUCCAL Q2H PRN PRN Reason: Nicotine Cravings Olanzapine (Olanzapine 5 Mg Tablet) 5 mg PO TID PRN PRN Reason: agitation Risperidone (Risperidone 3 Mg Tablet) 3 mg PO DAILY [facility] Last Admin: 10/10/22 08:08 Dose: 3 mg Risperidone (Risperidone 2 Mg Tablet) 4 mg PO BEDTIME [facility] Last Admin: 10/09/22 20:08 Dose: 4 mg Trazodone HCl (Trazodone Hcl 50 Mg Tablet) 50 mg PO BEDTIME PRN PRN Reason: insomnia Vitamin E (Vitamin E (Dl,Tocopheryl Acet) 180 Mg (400 Unit) Capsule) 180 mg PO DAILY [facility] Last Admin: 10/10/22 08:09 Dose: 180 mg Allergies Allergies Allergy/AdvReac Type Severity Reaction Status Date / Time No Known Allergies Allergy Verified 09/10/22 14:03 Assessment & Plan Assessment & Plan (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 contact [facility] to discuss any medications changes. collaborate with staff re placement. 10/10: DC trazodone 150 QHS and start trazodone 50 QHS. left message for vijaya. stable, at baseline. Reason for continued inpatient stay Substantial Risk for: harm to others, inability to function and rapid decompensation Time Spent With Patient Time: Total time managing care of this patient today __35__ minutes.
[2022-10-10] MEDS: Lurasidone HCl 80 MG TABLET PO (14:17)
[2022-10-10 20:05] VITALS: BP 144/80; PULSE 75; RESP 18; TEMP 36.4; O2SAT 95
[2022-10-10] MEDS: risperiDONE 2 MG TABLET 4 MG PO (20:09)
[2022-10-10] MEDS: Melatonin 3 MG TABLET 6 MG PO (20:09)
[2022-10-10] MEDS: Divalproex Sodium ER 500 MG TAB.ER.24H 2000 MG PO (20:10)
[2022-10-11] MEDS: diazePAM 2 MG TABLET 4 MG PO ×3 (09:06→20:18)
[2022-10-11] MEDS: FLUoxetine HCl 20 MG CAPSULE 80 MG PO (09:06)
[2022-10-11] MEDS: Memantine HCl 10 MG TABLET PO ×2 (09:06→20:18)
[2022-10-11] MEDS: Vitamin E (Dl,Tocopheryl Acet) 180 MG (400 UNIT) CAPSULE PO (09:06)
[2022-10-11] MEDS: risperiDONE 3 MG TABLET PO (09:06)
--- NOTE | 2022-10-11 14:35 | P.PNPSI_ITS ---
Subjective Subjective Date of Service: 10/11/22 Reason For Visit: Aggressive Behavior Interim History: pt c/o feeling too tired here, concerned VPA dosing is more than he is supposed to begetting. dosing verified with [facility] this afternoon. no other complaints or requests. per staff, attending some groups. poor boundaries. rude comments in group. bangs on own door to get staff attention. eating, sleeping, attending to ADLs. slept well. Mental Status Exam Mental Status Exam Narrative: A&O. unkempt appearance, disheveled.? fair eye contact, attentive. No Tics or Tremors.? cooperative.? speech incr rate, nml amount.? No prolonged speech latency or dysarthria.? word-finding difficulties due to expressive aphasia.? affect is normo-intense, non-labile.? no SI/HI/AVH.? Insight/ Judgment limited. OCD, i.e. spitting into his shirt repetitively, poor physical boundaries. Diagnostics Vital Signs (24Hr): Vital Signs - 24 hr 10/10/22 20:05 Temperature 97.6 F Pulse Rate 75 Respiratory Rate 18 Blood Pressure 144/80 H Pulse Oximetry 95 Oxygen Delivery Method Room Air BMI result Body Mass Index 33.4 Labs 10/07/22 19:46 10/07/22 19:46 Medications Medications Current Medications Acetaminophen (Acetaminophen 325 Mg Tablet) 650 mg PO Q6H PRN PRN Reason: Headache/Pain Mild Scale (1-3) Al Hydroxide/Mg Hydroxide (Magnesium Hydrox/Alum Hydrox 30 Ml Oral.Susp) 30 ml PO Q6H PRN PRN Reason: Heartburn/Nausea Diazepam (Diazepam 2 Mg Tablet) 4 mg PO TID [facility] Last Admin: 10/11/22 09:06 Dose: 4 mg Divalproex Sodium (Divalproex Sodium Er 500 Mg Tab.Er.24h) 2,000 mg PO BEDTIME [facility] Last Admin: 10/10/22 20:10 Dose: 2,000 mg Fluoxetine HCl (Fluoxetine Hcl 20 Mg Capsule) 80 mg PO DAILY [facility] Last Admin: 10/11/22 09:06 Dose: 80 mg Fluticasone Propionate (Fluticasone Propionate Nasal 16 Gm [place]) 1 spray NOSTRIL-B BID PRN PRN Reason: for congestion Guaifenesin (Guaifenesin 100 Mg/5 Ml Liquid) 5 ml PO Q4H PRN PRN Reason: productive cough Hydroxyzine HCl (Hydroxyzine Hcl 25 Mg Tablet) 25 mg PO TID PRN PRN Reason: Anxiety Loperamide HCl (Loperamide Hcl 2 Mg Capsule) 2 mg PO Q8H PRN PRN Reason: loose stool Lurasidone HCl (Lurasidone Hcl 80 Mg Tablet) 80 mg PO DAILY@1400 [facility] Last Admin: 10/10/22 14:17 Dose: 80 mg Magnesium Hydroxide (Milk Of Magnesia 30 Ml Oral.Susp) 30 ml PO DAILY PRN PRN Reason: Constipation Melatonin (Melatonin 3 Mg Tablet) 6 mg PO BEDTIME [facility] Last Admin: 10/10/22 20:09 Dose: 6 mg Memantine (Memantine Hcl 10 Mg Tablet) 10 mg PO BID [facility] Last Admin: 10/11/22 09:06 Dose: 10 mg Nicotine Polacrilex (Nicotine Polacrilex 2 Mg Gum) 4 mg BUCCAL Q2H PRN PRN Reason: Nicotine Cravings Olanzapine (Olanzapine 5 Mg Tablet) 5 mg PO TID PRN PRN Reason: agitation Risperidone (Risperidone 3 Mg Tablet) 3 mg PO DAILY [facility] Last Admin: 10/11/22 09:06 Dose: 3 mg Risperidone (Risperidone 2 Mg Tablet) 4 mg PO BEDTIME [facility] Last Admin: 10/10/22 20:09 Dose: 4 mg Trazodone HCl (Trazodone Hcl 50 Mg Tablet) 50 mg PO BEDTIME PRN PRN Reason: insomnia Vitamin E (Vitamin E (Dl,Tocopheryl Acet) 180 Mg (400 Unit) Capsule) 180 mg PO DAILY [facility] Last Admin: 10/11/22 09:06 Dose: 180 mg Allergies Allergies Allergy/AdvReac Type Severity Reaction Status Date / Time No Known Allergies Allergy Verified 09/10/22 14:03 Assessment & Plan Assessment & Plan (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 contact [facility] to discuss any medications changes. collaborate with staff re placement. 10/10: DC trazodone 150 QHS and start trazodone 50 QHS. left message for vijaya. stable, at baseline. 10/11: still feeling too tired days. VPA dosing verified with pharmacy at 2 grams. continue current mgmt. awaiting return call from Dr. Waite. Reason for continued inpatient stay Substantial Risk for: harm to others, inability to function and rapid d ecompensation Time Spent With Patient Time: Total time managing care of this patient today __35__ minutes.
[2022-10-11] MEDS: Lurasidone HCl 80 MG TABLET PO (14:47)
[2022-10-11] MEDS: Melatonin 3 MG TABLET 6 MG PO (20:17)
[2022-10-11] MEDS: Divalproex Sodium ER 500 MG TAB.ER.24H 2000 MG PO (20:18)
[2022-10-11 20:19] VITALS: BP 182/89; PULSE 97; TEMP 36.7; O2SAT 95
[2022-10-11] MEDS: risperiDONE 2 MG TABLET 4 MG PO (20:56)
[2022-10-12] MEDS: Memantine HCl 10 MG TABLET PO ×2 (08:47→20:10)
[2022-10-12] MEDS: risperiDONE 3 MG TABLET PO (08:47)
[2022-10-12] MEDS: diazePAM 2 MG TABLET 4 MG PO ×3 (08:47→20:09)
[2022-10-12] MEDS: FLUoxetine HCl 20 MG CAPSULE 80 MG PO (08:47)
[2022-10-12] MEDS: Vitamin E (Dl,Tocopheryl Acet) 180 MG (400 UNIT) CAPSULE PO (08:48)
--- NOTE | 2022-10-12 13:26 | HO.PSYCHPN ---
Subjective Subjective Date of Service: 10/12/22 Reason For Visit: Aggressive Behavior Subjective Notes: Conditional Voluntary Interim History: The nursing staff reported the patient has OCD behaviors, he has poor boundaries, he has been pleasant and cooperative but needs constant redirection. On interview the patient was lying on his bed he stated that he is doing fine and he wanted to discontinue his Depakote since he feels over-sedated. I explained him it will take a few days to level of and he agreed to continue with the current treatment. Mental Status Exam Mental Status Exam Patient Appearance: Disheveled Patient Orientation: Person and Situation Level of Consciousness: Awake and Appropriate Patient Behavior: Guarded and Passive Mood Description: Withdrawn Affect Description: Constricted Patient Cognition Impaired: Yes Ability to Follow Directions: Good Speech Pattern: Clear Hallucinations: None Delusions: Paranoid Ideation Thought Process: Distracted and Slowed Thinking Thought Content: positive for [place] and positive for Poverty of Content Judgement: Fair Diagnostics Vital Signs (24Hr): Vital Signs - 24 hr 10/11/22 20:19 Temperature 98.1 F Pulse Rate 97 Blood Pressure 182/89 H Pulse Oximetry 95 Oxygen Delivery Method Room Air BMI result Body Mass Index 33.4 Labs 10/07/22 19:46 10/07/22 19:46 Medications Medications Current Medications Acetaminophen (Acetaminophen 325 Mg Tablet) 650 mg PO Q6H PRN PRN Reason: Headache/Pain Mild Scale (1-3) Al Hydroxide/Mg Hydroxide (Magnesium Hydrox/Alum Hydrox 30 Ml Oral.Susp) 30 ml PO Q6H PRN PRN Reason: Heartburn/Nausea Diazepam (Diazepam 2 Mg Tablet) 4 mg PO TID [facility] Last Admin: 10/12/22 08:47 Dose: 4 mg Divalproex Sodium (Divalproex Sodium Er 500 Mg Tab.Er.24h) 2,000 mg PO BEDTIME [facility] Last Admin: 10/11/22 20:18 Dose: 2,000 mg Fluoxetine HCl (Fluoxetine Hcl 20 Mg Capsule) 80 mg PO DAILY [facility] Last Admin: 10/12/22 08:47 Dose: 80 mg Fluticasone Propionate (Fluticasone Propionate Nasal 16 Gm [place]) 1 spray NOSTRIL-B BID PRN PRN Reason: for congestion Guaifenesin (Guaifenesin 100 Mg/5 Ml Liquid) 5 ml PO Q4H PRN PRN Reason: productive cough Hydroxyzine HCl (Hydroxyzine Hcl 25 Mg Tablet) 25 mg PO TID PRN PRN Reason: Anxiety Loperamide HCl (Loperamide Hcl 2 Mg Capsule) 2 mg PO Q8H PRN PRN Reason: loose stool Lurasidone HCl (Lurasidone Hcl 80 Mg Tablet) 80 mg PO DAILY@1400 [facility] Last Admin: 10/11/22 14:47 Dose: 80 mg Magnesium Hydroxide (Milk Of Magnesia 30 Ml Oral.Susp) 30 ml PO DAILY PRN PRN Reason: Constipation Melatonin (Melatonin 3 Mg Tablet) 6 mg PO BEDTIME [facility] Last Admin: 10/11/22 20:17 Dose: 6 mg Memantine (Memantine Hcl 10 Mg Tablet) 10 mg PO BID [facility] Last Admin: 10/12/22 08:47 Dose: 10 mg Nicotine Polacrilex (Nicotine Polacrilex 2 Mg Gum) 4 mg BUCCAL Q2H PRN PRN Reason: Nicotine Cravings Olanzapine (Olanzapine 5 Mg Tablet) 5 mg PO TID PRN PRN Reason: agitation Risperidone (Risperidone 3 Mg Tablet) 3 mg PO DAILY [facility] Last Admin: 10/12/22 08:47 Dose: 3 mg Risperidone (Risperidone 2 Mg Tablet) 4 mg PO BEDTIME [facility] Last Admin: 10/11/22 20:56 Dose: 4 mg Trazodone HCl (Trazodone Hcl 50 Mg Tablet) 50 mg PO BEDTIME PRN PRN Reason: insomnia Vitamin E (Vitamin E (Dl,Tocopheryl Acet) 180 Mg (400 Unit) Capsule) 180 mg PO DAILY [facility] Last Admin: 10/12/22 08:48 Dose: 180 mg Allergies Allergies Allergy/AdvReac Type Severity Reaction Status Date / Time No Known Allergies Allergy Verified 09/10/22 14:03 Assessment & Plan Assessment & Plan (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 contact [facility] to discuss any medications changes. collaborate with staff re placement. 10/10: DC trazodone 150 QHS and start trazodone 50 QHS. left message for vijaya. stable, at baseline. 10/11: still feeling too tired days. VPA dosing verified with pharmacy at 2 grams. continue current mgmt. awaiting return call from Dr. Waite. 10/12: keep same treatment. Reason for continued inpatient stay Substantial Risk for: inability to function, rapid decompensation and med/psych decompensation Time Spent With Patient Time: Total time managing care of this patient today _20___ minutes.
[2022-10-12] MEDS: Lurasidone HCl 80 MG TABLET PO (15:10)
[2022-10-12 20:05] VITALS: BP 157/79; PULSE 80; RESP 16; TEMP 36.6; O2SAT 96
[2022-10-12] MEDS: Divalproex Sodium ER 500 MG TAB.ER.24H 2000 MG PO (20:09)
[2022-10-12] MEDS: Melatonin 3 MG TABLET 6 MG PO (20:10)
[2022-10-12] MEDS: risperiDONE 2 MG TABLET 4 MG PO (20:10)
[2022-10-13] MEDS: FLUoxetine HCl 20 MG CAPSULE 80 MG PO (09:43)
[2022-10-13] MEDS: Vitamin E (Dl,Tocopheryl Acet) 180 MG (400 UNIT) CAPSULE PO (09:43)
[2022-10-13] MEDS: Memantine HCl 10 MG TABLET PO ×2 (09:43→20:18)
[2022-10-13] MEDS: risperiDONE 3 MG TABLET PO (09:43)
[2022-10-13] MEDS: diazePAM 2 MG TABLET 4 MG PO ×3 (09:50→20:19)
--- NOTE | 2022-10-13 11:46 | P.PNPSI_ITS ---
Subjective Subjective Date of Service: 10/13/22 Reason For Visit: Aggressive Behavior Subjective Notes: Conditional Voluntary Interim History: The nursing staff reported the patient had been compliant with treatment, he had been asking for hikes and verbal redirection on boundaries was given. He has some thought blocking but he has been appropriate and patient. He slept well last night. On interview the patient was on his bed he stated he did not have new c omplaints. Looks internally preoccupied. Mental Status Exam Mental Status Exam Patient Appearance: Unkempt Patient Orientation: Person and Situation Level of Consciousness: Awake and Appropriate Mood Description: Constricted Affect Description: Withdrawn Ability to Follow Directions: Fair Speech Pattern: Clear Hallucinations: None Delusions: Not Present Thought Process: Distracted and Slowed Thinking Thought Content: positive for [place] and positive for Poverty of Content Judgement: Fair Diagnostics Vital Signs (24Hr): Vital Signs - 24 hr 10/12/22 20:05 Temperature 97.8 F Pulse Rate 80 Respiratory Rate 16 Blood Pressure 157/79 H Pulse Oximetry 96 Oxygen Delivery Method Room Air BMI result Body Mass Index 33.4 Labs 10/07/22 19:46 10/07/22 19:46 Medications Medications Current Medications Acetaminophen (Acetaminophen 325 Mg Tablet) 650 mg PO Q6H PRN PRN Reason: Headache/Pain Mild Scale (1-3) Al Hydroxide/Mg Hydroxide (Magnesium Hydrox/Alum Hydrox 30 Ml Oral.Susp) 30 ml PO Q6H PRN PRN Reason: Heartburn/Nausea Diazepam (Diazepam 2 Mg Tablet) 4 mg PO TID [facility] Last Admin: 10/13/22 09:50 Dose: 4 mg Divalproex Sodium (Divalproex Sodium Er 500 Mg Tab.Er.24h) 2,000 mg PO BEDTIME [facility] Last Admin: 10/12/22 20:09 Dose: 2,000 mg Fluoxetine HCl (Fluoxetine Hcl 20 Mg Capsule) 80 mg PO DAILY [facility] Last Admin: 10/13/22 09:43 Dose: 80 mg Fluticasone Propionate (Fluticasone Propionate Nasal 16 Gm [place]) 1 spray NOSTRIL-B BID PRN PRN Reason: for congestion Guaifenesin (Guaifenesin 100 Mg/5 Ml Liquid) 5 ml PO Q4H PRN PRN Reason: productive cough Hydroxyzine HCl (Hydroxyzine Hcl 25 Mg Tablet) 25 mg PO TID PRN PRN Reason: Anxiety Loperamide HCl (Loperamide Hcl 2 Mg Capsule) 2 mg PO Q8H PRN PRN Reason: loose stool Lurasidone HCl (Lurasidone Hcl 80 Mg Tablet) 80 mg PO DAILY@1400 [facility] Last Admin: 10/12/22 15:10 Dose: 80 mg Magnesium Hydroxide (Milk Of Magnesia 30 Ml Oral.Susp) 30 ml PO DAILY PRN PRN Reason: Constipation Melatonin (Melatonin 3 Mg Tablet) 6 mg PO BEDTIME [facility] Last Admin: 10/12/22 20:10 Dose: 6 mg Memantine (Memantine Hcl 10 Mg Tablet) 10 mg PO BID [facility] Last Admin: 10/13/22 09:43 Dose: 10 mg Nicotine Polacrilex (Nicotine Polacrilex 2 Mg Gum) 4 mg BUCCAL Q2H PRN PRN Reason: Nicotine Cravings Olanzapine (Olanzapine 5 Mg Tablet) 5 mg PO TID PRN PRN Reason: agitation Risperidone (Risperidone 3 Mg Tablet) 3 mg PO DAILY [facility] Last Admin: 10/13/22 09:43 Dose: 3 mg Risperidone (Risperidone 2 Mg Tablet) 4 mg PO BEDTIME [facility] Last Admin: 10/12/22 20:10 Dose: 4 mg Trazodone HCl (Trazodone Hcl 50 Mg Tablet) 50 mg PO BEDTIME PRN PRN Reason: insomnia Vitamin E (Vitamin E (Dl,Tocopheryl Acet) 180 Mg (400 Unit) Capsule) 180 mg PO DAILY [facility] Last Admin: 10/13/22 09:43 Dose: 180 mg Allergies Allergies Allergy/AdvReac Type Severity Reaction Status Date / Time No Known Allergies Allergy Verified 09/10/22 14:03 Assessment & Plan Assessment & Plan (1) alcohol syndrome: Status: Acute Code(s): 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 contact [facility] to discuss any medications changes. collaborate with staff re placement. 10/10: DC trazodone 150 QHS and start trazodone 50 QHS. left message for vijaya. stable, at baseline. 10/11: still feeling too tired days. VPA dosing verified with pharmacy at 2 grams. continue current mgmt. awaiting return call from Dr. Waite. 10/12: keep same treatment. 10/13: keep same treatment. Reason for continued inpatient stay Substantial Risk for: inability to function, rapid decompensation and med/psych decompensation Time Spent With Patient Time: Total time managing care of this patient today __20__ minutes.
[2022-10-13] MEDS: Lurasidone HCl 80 MG TABLET PO (15:02)
[2022-10-13 20:10] VITALS: BP 124/86; PULSE 82; RESP 18; TEMP 36.3; O2SAT 95
[2022-10-13] MEDS: Divalproex Sodium ER 500 MG TAB.ER.24H 2000 MG PO (20:18)
[2022-10-13] MEDS: risperiDONE 2 MG TABLET 4 MG PO (20:18)
[2022-10-13] MEDS: Melatonin 3 MG TABLET 6 MG PO (20:19)
[2022-10-13] MEDS: traZODone HCL 50 MG TABLET PO (20:28)
[2022-10-14] MEDS: diazePAM 2 MG TABLET 4 MG PO ×3 (08:34→20:25)
[2022-10-14] MEDS: FLUoxetine HCl 20 MG CAPSULE 80 MG PO (08:34)
[2022-10-14] MEDS: Memantine HCl 10 MG TABLET PO ×2 (08:34→20:25)
[2022-10-14] MEDS: risperiDONE 3 MG TABLET PO (08:34)
[2022-10-14] MEDS: Vitamin E (Dl,Tocopheryl Acet) 180 MG (400 UNIT) CAPSULE PO (08:34)
[2022-10-14] MEDS: Lurasidone HCl 80 MG TABLET PO (13:46)
[2022-10-14 20:25] VITALS: BP 127/75; PULSE 65; RESP 18; TEMP 36.5; O2SAT 97
[2022-10-14] MEDS: risperiDONE 2 MG TABLET 4 MG PO (20:25)
[2022-10-14] MEDS: traZODone HCL 50 MG TABLET PO (20:25)
[2022-10-14] MEDS: Melatonin 3 MG TABLET 6 MG PO (20:25)
[2022-10-14] MEDS: Divalproex Sodium ER 500 MG TAB.ER.24H 2000 MG PO (20:25)
--- NOTE | 2022-10-14 21:53 | HO.PSYCHPN ---
Subjective Subjective Date of Service: 10/14/22 Reason For Visit: Aggressive Behavior Interim History: Patient noted to be intrusive at times overly touching can be verbally impulsive. Medication Compliance: Yes Attending Groups: Intermittent Mental Status Exam Mental Status Exam Patient Appearance: Unkempt Patient Orientation: Person and Situation Level of Consciousness: Awake and Appropriate Patient Behavior: Invasion - Personal Space Mood Description: Constricted Affect Description: Withdrawn Ability to Follow Directions: Fair Speech Pattern: Clear, Pressured and Includes Profanity Hallucinations: None Delusions: Not Present Thought Process: Racing and Distracted Thought Content: positive for [place], positive for Preoccupation and positive for Disorganized Abnormal Motor Activity Signs and Symptoms: Agitation Judgement: Fair Diagnostics Vital Signs (24Hr): BMI result Body Mass Index 33.4 Labs 10/07/22 19:46 10/07/22 19:46 Medications Medications Current Medications Acetaminophen (Acetaminophen 325 Mg Tablet) 650 mg PO Q6H PRN PRN Reason: Headache/Pain Mild Scale (1-3) Al Hydroxide/Mg Hydroxide (Magnesium Hydrox/Alum Hydrox 30 Ml Oral.Susp) 30 ml PO Q6H PRN PRN Reason: Heartburn/Nausea Diazepam (Diazepam 2 Mg Tablet) 4 mg PO TID [facility] Last Admin: 10/14/22 20:25 Dose: 4 mg Divalproex Sodium (Divalproex Sodium Er 500 Mg Tab.Er.24h) 2,000 mg PO BEDTIME [facility] Last Admin: 10/14/22 20:25 Dose: 2,000 mg Fluoxetine HCl (Fluoxetine Hcl 20 Mg Capsule) 80 mg PO DAILY [facility] Last Admin: 10/14/22 08:34 Dose: 80 mg Fluticasone Propionate (Fluticasone Propionate Nasal 16 Gm [place]) 1 spray NOSTRIL-B BID PRN PRN Reason: for congestion Guaifenesin (Guaifenesin 100 Mg/5 Ml Liquid) 5 ml PO Q4H PRN PRN Reason: productive cough Hydroxyzine HCl (Hydroxyzine Hcl 25 Mg Tablet) 25 mg PO TID PRN PRN Reason: Anxiety Loperamide HCl (Loperamide Hcl 2 Mg Capsule) 2 mg PO Q8H PRN PRN Reason: loose stool Lurasidone HCl (Lurasidone Hcl 80 Mg Tablet) 80 mg PO DAILY@1400 [facility] Last Admin: 10/14/22 13:46 Dose: 80 mg Magnesium Hydroxide (Milk Of Magnesia 30 Ml Oral.Susp) 30 ml PO DAILY PRN PRN Reason: Constipation Melatonin (Melatonin 3 Mg Tablet) 6 mg PO BEDTIME [facility] Last Admin: 10/14/22 20:25 Dose: 6 mg Memantine (Memantine Hcl 10 Mg Tablet) 10 mg PO BID [facility] Last Admin: 10/14/22 20:25 Dose: 10 mg Nicotine Polacrilex (Nicotine Polacrilex 2 Mg Gum) 4 mg BUCCAL Q2H PRN PRN Reason: Nicotine Cravings Olanzapine (Olanzapine 5 Mg Tablet) 5 mg PO TID PRN PRN Reason: agitation Risperidone (Risperidone 3 Mg Tablet) 3 mg PO DAILY [facility] Last Admin: 10/14/22 08:34 Dose: 3 mg Risperidone (Risperidone 2 Mg Tablet) 4 mg PO BEDTIME [facility] Last Admin: 10/14/22 20:25 Dose: 4 mg Trazodone HCl (Trazodone Hcl 50 Mg Tablet) 50 mg PO BEDTIME PRN PRN Reason: insomnia Last Admin: 10/14/22 20:25 Dose: 50 mg Vitamin E (Vitamin E (Dl,Tocopheryl Acet) 180 Mg (400 Unit) Capsule) 180 mg PO DAILY [facility] Last Admin: 10/14/22 08:34 Dose: 180 mg Allergies Allergies Allergy/AdvReac Type Severity Reaction Status Date / Time No Known Allergies Allergy Verified 09/10/22 14:03 Assessment & Plan Assessment & Plan (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 contact [facility] to discuss any medications changes. collaborate with staff re placement. 10/10: DC trazodone 150 QHS and start trazodone 50 QHS. left message for vijaya. stable, at baseline. 10/11: still feeling too tired days. VPA dosing verified with pharmacy at 2 grams. continue current mgmt. awaiting return call from Dr. Waite. 10/12: keep same treatment. 10/13: keep same treatment. 10/14/22 cont talia mtg with [facility] home Patient educated on: medication risk/benefits Informed Consent: further education needed Reason for continued inpatient stay Substantial Risk for: harm to others and inability to function Time Spent With Patient Time: Total time managing care of this patient today _25___ minutes.
[2022-10-15 09:27] LABS: Valproate 86.8 mcg/mL (50.0-100.0)
[2022-10-15 09:30] LABS: Alanine Aminotransferase 19 U/L (0-40); Alkaline Phosphatase 67 U/L (39-117); Ammonia 48 umol/L (13-55); Anion Gap 13 (12-20); Aspartate Amino Transferase 15 U/L (5-37); Bilirubin Total 0.5 mg/dL (0.0-1.0); Blood Urea Nitrogen 15 mg/dL (9-16); Calcium 9.6 mg/dL (8.4-10.2); Carbon Dioxide 28 mmol/L (22-29); Chloride 105 mmol/L (96-108); Creatinine Clr Calc Pharmacy 160.4; Estimated Glomerular Filt Rate > 60; Glucose Fasting 89 mg/dL (60-99); Potassium 4.6 mmol/L (3.3-5.1); Sodium 141 mmol/L (135-145)
[2022-10-15] MEDS: FLUoxetine HCl 20 MG CAPSULE 80 MG PO (09:41)
[2022-10-15] MEDS: diazePAM 2 MG TABLET 4 MG PO ×3 (09:41→20:09)
[2022-10-15] MEDS: Memantine HCl 10 MG TABLET PO ×2 (09:41→20:09)
[2022-10-15] MEDS: risperiDONE 3 MG TABLET PO (09:41)
[2022-10-15] MEDS: Vitamin E (Dl,Tocopheryl Acet) 180 MG (400 UNIT) CAPSULE PO (09:41)
[2022-10-15] MEDS: Lurasidone HCl 80 MG TABLET PO (15:01)
[2022-10-15] MEDS: Divalproex Sodium ER 500 MG TAB.ER.24H 2000 MG PO (20:09)
[2022-10-15] MEDS: Melatonin 3 MG TABLET 6 MG PO (20:09)
[2022-10-15] MEDS: risperiDONE 2 MG TABLET 4 MG PO (20:09)
[2022-10-15 20:17] VITALS: BP 142/99; PULSE 81; TEMP 36.6; O2SAT 95
[2022-10-15] MEDS: traZODone HCL 50 MG TABLET PO ×2 (21:33→22:55)
[2022-10-15] MEDS: hydrOXYzine HCL 25 MG TABLET PO (21:33)
--- NOTE | 2022-10-15 21:59 | P.PNPSI_ITS ---
Subjective Subjective Date of Service: 10/15/22 Reason For Visit: Aggressive Behavior Interim History: treaters mtg today x 30 minutes. pt seen individually as well. remains in good spirits, apparently at baseline. per staff, spat out valium yesteryda morning, then took a meds after. napping. attending some groups. Mental Status Exam Mental Status Exam Narrative: A&O. unkempt appearance, disheveled.? fair eye contact, attentive. No Tics or Tremors.? cooperative.? speech incr rate, nml amount.? No prolonged speech latency or dysarthria.? word-finding difficulties due to expressive aphasia.? affect is normo-intense, non-labile.? no SI/HI/AVH.? Insight/ Judgment limited. OCD, i.e. spitting into his shirt repetitively, poor physical boundaries. Diagnostics Vital Signs (24Hr): Vital Signs - 24 hr 10/15/22 20:17 Temperature 97.9 F Pulse Rate 81 Blood Pressure 142/99 H Pulse Oximetry 95 Oxygen Delivery Method Room Air BMI result Body Mass Index 33.4 Labs 10/07/22 19:46 10/15/22 08:52 Labs: Laboratory Results - last 48 hr 10/15/22 10/15/22 10/15/22 08:52 08:52 08:52 Sodium 141 Potassium 4.6 D Chloride 105 Carbon Dioxide 28 Anion Gap 13 BUN 15 Creatinine 0.81 Estim Creat Clear Calc 160.4 Estimated GFR > 60 Fasting Glucose 89 Calcium 9.6 Total Bilirubin 0.5 AST 15 ALT 19 Alkaline Phosphatase 67 Ammonia 48 Total Protein 7.0 Albumin 4.0 Valproic Acid 86.8 Medications Medications Current Medications Acetaminophen (Acetaminophen 325 Mg Tablet) 650 mg PO Q6H PRN PRN Reason: Headache/Pain Mild Scale (1-3) Al Hydroxide/Mg Hydroxide (Magnesium Hydrox/Alum Hydrox 30 Ml Oral.Susp) 30 ml PO Q6H PRN PRN Reason: Heartburn/Nausea Diazepam (Diazepam 2 Mg Tablet) 4 mg PO TID [facility] Last Admin: 10/15/22 20:09 Dose: 4 mg Divalproex Sodium (Divalproex Sodium Er 500 Mg Tab.Er.24h) 2,000 mg PO BEDTIME [facility] Last Admin: 10/15/22 20:09 Dose: 2,000 mg Fluoxetine HCl (Fluoxetine Hcl 20 Mg Capsule) 80 mg PO DAILY [facility] Last Admin: 10/15/22 09:41 Dose: 80 mg Fluticasone Propionate (Fluticasone Propionate Nasal 16 Gm [place]) 1 spray NOSTRIL-B BID PRN PRN Reason: for congestion Guaifenesin (Guaifenesin 100 Mg/5 Ml Liquid) 5 ml PO Q4H PRN PRN Reason: productive cough Hydroxyzine HCl (Hydroxyzine Hcl 25 Mg Tablet) 25 mg PO TID PRN PRN Reason: Anxiety Last Admin: 10/15/22 21:33 Dose: 25 mg Loperamide HCl (Loperamide Hcl 2 Mg Capsule) 2 mg PO Q8H PRN PRN Reason: loose stool Lurasidone HCl (Lurasidone Hcl 80 Mg Tablet) 80 mg PO DAILY@1400 [facility] Last Admin: 10/15/22 15:01 Dose: 80 mg Magnesium Hydroxide (Milk Of Magnesia 30 Ml Oral.Susp) 30 ml PO DAILY PRN PRN Reason: Constipation Melatonin (Melatonin 3 Mg Tablet) 6 mg PO BEDTIME [facility] Last Admin: 10/15/22 20:09 Dose: 6 mg Memantine (Memantine Hcl 10 Mg Tablet) 10 mg PO BID [facility] Last Admin: 10/15/22 20:09 Dose: 10 mg Nicotine Polacrilex (Nicotine Polacrilex 2 Mg Gum) 4 mg BUCCAL Q2H PRN PRN Reason: Nicotine Cravings Olanzapine (Olanzapine 5 Mg Tablet) 5 mg PO TID PRN PRN Reason: agitation Risperidone (Risperidone 3 Mg Tablet) 3 mg PO DAILY [facility] Last Admin: 10/15/22 09:41 Dose: 3 mg Risperidone (Risperidone 2 Mg Tablet) 4 mg PO BEDTIME [facility] Last Admin: 10/15/22 20:09 Dose: 4 mg Trazodone HCl (Trazodone Hcl 50 Mg Tablet) 50 mg PO BEDTIME PRN PRN Reason: insomnia Last Admin: 10/15/22 21:33 Dose: 50 mg Vitamin E (Vitamin E (Dl,Tocopheryl Acet) 180 Mg (400 Unit) Capsule) 180 mg PO DAILY [facility] Last Admin: 10/15/22 09:41 Dose: 180 mg Allergies Allergies Allergy/AdvReac Type Severity Reaction Status Date / Time No Known Allergies Allergy Verified 09/10/22 14:03 Assessment & Plan Assessment & Plan (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 contact [facility] to discuss any medications changes. collaborate with staff re placement. 10/10: DC trazodone 150 QHS and start trazodone 50 QHS. left message for vijaya. stable, at baseline. 10/11: still feeling too tired days. VPA dosing verified with pharmacy at 2 grams. continue current mgmt. awaiting return call from vijaya. 10/12: keep same treatment. 10/13: keep same treatment. 10/14: cont depakote mtg with [facility] home. 10/15: treaters mtg held. remains at baseline. planning for discharge next friday. Reason for continued inpatient stay Substantial Risk for: rapid decompensation Time Spent With Patient Time: Total time managing care of this patient today __55__ minutes.
[2022-10-16] MEDS: FLUoxetine HCl 20 MG CAPSULE 80 MG PO (09:25)
[2022-10-16] MEDS: Vitamin E (Dl,Tocopheryl Acet) 180 MG (400 UNIT) CAPSULE PO (09:25)
[2022-10-16] MEDS: Memantine HCl 10 MG TABLET PO ×2 (09:26→20:26)
[2022-10-16] MEDS: risperiDONE 3 MG TABLET PO (09:26)
[2022-10-16] MEDS: diazePAM 2 MG TABLET 4 MG PO ×3 (09:26→20:26)
[2022-10-16] MEDS: Lurasidone HCl 80 MG TABLET PO (13:43)
--- NOTE | 2022-10-16 15:14 | P.PNPSI_ITS ---
Subjective Subjective Date of Service: 10/16/22 Reason For Visit: Aggressive Behavior Interim History: no change in presentation. per staff, pleasant. anxious. easily redirected. some groups. eating well. hypersexual last night. Mental Status Exam Mental Status Exam Narrative: A&O. unkempt appearance, disheveled.? fair eye contact, attentive. No Tics or Tremors.? cooperative.? speech incr rate, nml amount.? No prolonged speech latency or dysarthria.? word-finding difficulties due to expressive aphasia.? affect is normo-intense, non-labile.? no SI/HI/AVH.? Insight/ Judgment limited. OCD, i.e. spitting into his shirt repetitively, poor physical boundaries. Diagnostics Vital Signs (24Hr): Vital Signs - 24 hr 10/15/22 20:17 Temperature 97.9 F Pulse Rate 81 Blood Pressure 142/99 H Pulse Oximetry 95 Oxygen Delivery Method Room Air BMI result Body Mass Index 33.4 Labs 10/07/22 19:46 10/15/22 08:52 Labs: Laboratory Results - last 48 hr 10/15/22 10/15/22 10/15/22 08:52 08:52 08:52 Sodium 141 Potassium 4.6 D Chloride 105 Carbon Dioxide 28 Anion Gap 13 BUN 15 Creatinine 0.81 Estim Creat Clear Calc 160.4 Estimated GFR > 60 Fasting Glucose 89 Calcium 9.6 Total Bilirubin 0.5 AST 15 ALT 19 Alkaline Phosphatase 67 Ammonia 48 Total Protein 7.0 Albumin 4.0 Valproic Acid 86.8 Medications Medications Current Medications Acetaminophen (Acetaminophen 325 Mg Tablet) 650 mg PO Q6H PRN PRN Reason: Headache/Pain Mild Scale (1-3) Al Hydroxide/Mg Hydroxide (Magnesium Hydrox/Alum Hydrox 30 Ml Oral.Susp) 30 ml PO Q6H PRN PRN Reason: Heartburn/Nausea Diazepam (Diazepam 2 Mg Tablet) 4 mg PO TID [facility] Last Admin: 10/16/22 14:57 Dose: 4 mg Divalproex Sodium (Divalproex Sodium Er 500 Mg Tab.Er.24h) 2,000 mg PO BEDTIME [facility] Last Admin: 10/15/22 20:09 Dose: 2,000 mg Fluoxetine HCl (Fluoxetine Hcl 20 Mg Capsule) 80 mg PO DAILY [facility] Last Admin: 10/16/22 09:25 Dose: 80 mg Fluticasone Propionate (Fluticasone Propionate Nasal 16 Gm [place]) 1 spray NOSTRIL-B BID PRN PRN Reason: for congestion Guaifenesin (Guaifenesin 100 Mg/5 Ml Liquid) 5 ml PO Q4H PRN PRN Reason: productive cough Hydroxyzine HCl (Hydroxyzine Hcl 25 Mg Tablet) 25 mg PO TID PRN PRN Reason: Anxiety Last Admin: 10/15/22 21:33 Dose: 25 mg Loperamide HCl (Loperamide Hcl 2 Mg Capsule) 2 mg PO Q8H PRN PRN Reason: loose stool Lurasidone HCl (Lurasidone Hcl 80 Mg Tablet) 80 mg PO DAILY@1400 [facility] Last Admin: 10/16/22 13:43 Dose: 80 mg Magnesium Hydroxide (Milk Of Magnesia 30 Ml Oral.Susp) 30 ml PO DAILY PRN PRN Reason: Constipation Melatonin (Melatonin 3 Mg Tablet) 6 mg PO BEDTIME [facility] Last Admin: 10/15/22 20:09 Dose: 6 mg Memantine (Memantine Hcl 10 Mg Tablet) 10 mg PO BID [facility] Last Admin: 10/16/22 09:26 Dose: 10 mg Nicotine Polacrilex (Nicotine Polacrilex 2 Mg Gum) 4 mg BUCCAL Q2H PRN PRN Reason: Nicotine Cravings Olanzapine (Olanzapine 5 Mg Tablet) 5 mg PO TID PRN PRN Reason: agitation Risperidone (Risperidone 3 Mg Tablet) 3 mg PO DAILY [facility] Last Admin: 10/16/22 09:26 Dose: 3 mg Risperidone (Risperidone 2 Mg Tablet) 4 mg PO BEDTIME [facility] Last Admin: 10/15/22 20:09 Dose: 4 mg Trazodone HCl (Trazodone Hcl 50 Mg Tablet) 50 mg PO BEDTIME PRN PRN Reason: insomnia Last Admin: 10/15/22 21:33 Dose: 50 mg Vitamin E (Vitamin E (Dl,Tocopheryl Acet) 180 Mg (400 Unit) Capsule) 180 mg PO DAILY [facility] Last Admin: 10/16/22 09:25 Dose: 180 mg Allergies Allergies Allergy/AdvReac Type Severity Reaction Status Date / Time No Known Allergies Allergy Verified 09/10/22 14:03 Assessment & Plan Assessment & Plan (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 contact v[facility] to discuss any medications changes. collaborate with staff re placement. 10/10: DC trazodone 150 QHS and start trazodone 50 QHS. left message for vijaya. stable, at baseline. 10/11: still feeling too tired days. VPA dosing verified with pharmacy at 2 grams. continue current mgmt. awaiting return call from [facility]. 10/12: keep same treatment. 10/13: keep same treatment. 10/14: cont depakote mtg with [facility]p home. 10/15: treaters mtg held. remains at baseline. planning for discharge next friday. 10/16: stable presentation. continue current mgmt. Reason for continued inpatient stay Substantial Risk for: rapid decompensation Time Spent With Patient Time: Total time managing care of this patient today __25__ minutes.
[2022-10-16] MEDS: Divalproex Sodium ER 500 MG TAB.ER.24H 2000 MG PO (20:25)
[2022-10-16] MEDS: risperiDONE 2 MG TABLET 4 MG PO (20:26)
[2022-10-16] MEDS: Melatonin 3 MG TABLET 6 MG PO (20:26)
[2022-10-16] MEDS: traZODone HCL 50 MG TABLET PO (20:32)
[2022-10-16 20:34] VITALS: BP 138/83; PULSE 80; TEMP 36.7; O2SAT 92
[2022-10-17 07:00] VITALS: BMI 35.7
[2022-10-17] MEDS: diazePAM 2 MG TABLET 4 MG PO ×3 (08:14→20:08)
[2022-10-17] MEDS: FLUoxetine HCl 20 MG CAPSULE 80 MG PO (08:14)
[2022-10-17] MEDS: Memantine HCl 10 MG TABLET PO ×2 (08:15→20:08)
[2022-10-17] MEDS: Vitamin E (Dl,Tocopheryl Acet) 180 MG (400 UNIT) CAPSULE PO (08:15)
[2022-10-17] MEDS: risperiDONE 3 MG TABLET PO (08:15)
--- NOTE | 2022-10-17 13:03 | HO.PSYCHPN ---
Subjective Subjective Date of Service: 10/17/22 Reason For Visit: Aggressive Behavior Interim History: calm cooperative. no change in presentation. stating some paranoid thoughts that peers are talking bad about him behind his back and also some perhaps AH of one or two peers saying things like bitch while walking past him in the [place] and looking at him. per staff, pleasant, anxious. inappropriate. easily redirectable. showered, shaved, eating, sleeping. Mental Status Exam Mental Status Exam Narrative: A&O. adequately dressed and groomed.? fair eye contact, attentive. No Tics or Tremors.? cooperative.? speech incr rate, nml amount.? No prolonged speech latency or dysarthria.? word-finding difficulties due to expressive aphasia.? affect is normo-intense, non-labile.? no SI/HI/VH.? possible AH and paranoia. Insight/ Judgment limited. OCD, i.e. spitting into his shirt repetitively, poor physical boundaries. Diagnostics Vital Signs (24Hr): Vital Signs - 24 hr 10/16/22 20:34 Temperature 98.1 F Pulse Rate 80 Blood Pressure 138/83 Pulse Oximetry 92 Oxygen Delivery Method Room Air BMI result Body Mass Index 35.7 Labs 10/07/22 19:46 10/15/22 08:52 Medications Medications Current Medications Acetaminophen (Acetaminophen 325 Mg Tablet) 650 mg PO Q6H PRN PRN Reason: Headache/Pain Mild Scale (1-3) Al Hydroxide/Mg Hydroxide (Magnesium Hydrox/Alum Hydrox 30 Ml Oral.Susp) 30 ml PO Q6H PRN PRN Reason: Heartburn/Nausea Diazepam (Diazepam 2 Mg Tablet) 4 mg PO TID [facility] Last Admin: 10/17/22 08:14 Dose: 4 mg Divalproex Sodium (Divalproex Sodium Er 500 Mg Tab.Er.24h) 2,000 mg PO BEDTIME [facility] Last Admin: 10/16/22 20:25 Dose: 2,000 mg Fluoxetine HCl (Fluoxetine Hcl 20 Mg Capsule) 80 mg PO DAILY [facility] Last Admin: 10/17/22 08:14 Dose: 80 mg Fluticasone Propionate (Fluticasone Propionate Nasal 16 Gm [place]) 1 spray NOSTRIL-B BID PRN PRN Reason: for congestion Guaifenesin (Guaifenesin 100 Mg/5 Ml Liquid) 5 ml PO Q4H PRN PRN Reason: productive cough Hydroxyzine HCl (Hydroxyzine Hcl 25 Mg Tablet) 25 mg PO TID PRN PRN Reason: Anxiety Last Admin: 10/15/22 21:33 Dose: 25 mg Loperamide HCl (Loperamide Hcl 2 Mg Capsule) 2 mg PO Q8H PRN PRN Reason: loose stool Lurasidone HCl (Lurasidone Hcl 80 Mg Tablet) 80 mg PO DAILY@1400 [facility] Last Admin: 10/16/22 13:43 Dose: 80 mg Magnesium Hydroxide (Milk Of Magnesia 30 Ml Oral.Susp) 30 ml PO DAILY PRN PRN Reason: Constipation Melatonin (Melatonin 3 Mg Tablet) 6 mg PO BEDTIME [facility] Last Admin: 10/16/22 20:26 Dose: 6 mg Memantine (Memantine Hcl 10 Mg Tablet) 10 mg PO BID [facility] Last Admin: 10/17/22 08:15 Dose: 10 mg Nicotine Polacrilex (Nicotine Polacrilex 2 Mg Gum) 4 mg BUCCAL Q2H PRN PRN Reason: Nicotine Cravings Olanzapine (Olanzapine 5 Mg Tablet) 5 mg PO TID PRN PRN Reason: agitation Risperidone (Risperidone 3 Mg Tablet) 3 mg PO DAILY [facility] Last Admin: 10/17/22 08:15 Dose: 3 mg Risperidone (Risperidone 2 Mg Tablet) 4 mg PO BEDTIME [facility] Last Admin: 10/16/22 20:26 Dose: 4 mg Trazodone HCl (Trazodone Hcl 50 Mg Tablet) 50 mg PO BEDTIME PRN PRN Reason: insomnia Last Admin: 10/16/22 20:32 Dose: 50 mg Vitamin E (Vitamin E (Dl,Tocopheryl Acet) 180 Mg (400 Unit) Capsule) 180 mg PO DAILY [facility] Last Admin: 10/17/22 08:15 Dose: 180 mg Allergies Allergies Allergy/AdvReac Type Severity Reaction Status Date / Time No Known Allergies Allergy Verified 09/10/22 14:03 Assessment & Plan Assessment & Plan (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 contact [facility] to discuss any medications changes. collaborate with staff re placement. 10/10: DC trazodone 150 QHS and start trazodone 50 QHS. left message for vijaya. stable, at baseline. 10/11: still feeling too tired days. VPA dosing verified with pharmacy at 2 grams. continue current mgmt. awaiting return call from [facility]. 10/12: keep same treatment. 10/13: keep same treatment. 10/14: cont depakote mtg with [facility] home. 10/15: treaters mtg held. remains at baseline. planning for discharge next friday. 10/16: stable presentation. continue current mgmt. 10/17: stable presentation. continue current mgmt. planning for friday discharge. no aggressive behaviors. possibly some AH of peer saying bitch as he passed pt [place], definitely paranoia re peers talking bad about him behind his back. Reason for continued inpatient stay Substantial Risk for: harm to others and rapid decompensation Time Spent With Patient Time: Total time managing care of this patient today __25__ minutes.
[2022-10-17] MEDS: Lurasidone HCl 80 MG TABLET PO (13:36)
[2022-10-17 20:04] VITALS: BP 134/84; PULSE 77; RESP 18; TEMP 36.6; O2SAT 94
[2022-10-17] MEDS: risperiDONE 2 MG TABLET 4 MG PO (20:08)
[2022-10-17] MEDS: Melatonin 3 MG TABLET 6 MG PO (20:08)
[2022-10-17] MEDS: OLANZapine 5 MG TABLET PO (20:08)
[2022-10-17] MEDS: traZODone HCL 50 MG TABLET PO (20:08)
[2022-10-17] MEDS: hydrOXYzine HCL 25 MG TABLET PO (20:09)
[2022-10-17] MEDS: Divalproex Sodium ER 500 MG TAB.ER.24H 2000 MG PO (20:09)
[2022-10-18] MEDS: FLUoxetine HCl 20 MG CAPSULE 80 MG PO (09:12)
[2022-10-18] MEDS: risperiDONE 3 MG TABLET PO (09:13)
[2022-10-18] MEDS: Vitamin E (Dl,Tocopheryl Acet) 180 MG (400 UNIT) CAPSULE PO (09:13)
[2022-10-18] MEDS: diazePAM 2 MG TABLET 4 MG PO ×3 (09:13→20:14)
[2022-10-18] MEDS: Memantine HCl 10 MG TABLET PO ×2 (09:42→20:12)
[2022-10-18] MEDS: Lurasidone HCl 80 MG TABLET PO (14:37)
--- NOTE | 2022-10-18 14:51 | P.PNPSI_ITS ---
Subjective Subjective Date of Service: 10/18/22 Reason For Visit: Aggressive Behavior Interim History: stable. declined to get out of bed today. per staff, trying to hug staff last night. otherwise no notable behaviors, at baseline. Mental Status Exam Mental Status Exam Narrative: A&O. adequately dressed and groomed.? fair eye contact, attentive. No Tics or Tremors.? cooperative.? speech incr rate, nml amount.? No prolonged speech latency or dysarthria.? word-finding difficulties due to expressive aphasia.? affect is normo-intense, non-labile.? no SI/HI/AVH expressed.? Insight/ Judgment limited. OCD, i.e. spitting into his shirt repetitively, poor physical boundaries. Diagnostics Vital Signs (24Hr): Vital Signs - 24 hr 10/17/22 20:04 Temperature 97.8 F Pulse Rate 77 Respiratory Rate 18 Blood Pressure 134/84 Pulse Oximetry 94 Oxygen Delivery Method Room Air BMI result Body Mass Index 35.7 Labs 10/07/22 19:46 10/15/22 08:52 Medications Medications Current Medications Acetaminophen (Acetaminophen 325 Mg Tablet) 650 mg PO Q6H PRN PRN Reason: Headache/Pain Mild Scale (1-3) Al Hydroxide/Mg Hydroxide (Magnesium Hydrox/Alum Hydrox 30 Ml Oral.Susp) 30 ml PO Q6H PRN PRN Reason: Heartburn/Nausea Diazepam (Diazepam 2 Mg Tablet) 4 mg PO TID [facility] Last Admin: 10/18/22 14:37 Dose: 4 mg Divalproex Sodium (Divalproex Sodium Er 500 Mg Tab.Er.24h) 2,000 mg PO BEDTIME [facility] Last Admin: 10/17/22 20:09 Dose: 2,000 mg Fluoxetine HCl (Fluoxetine Hcl 20 Mg Capsule) 80 mg PO DAILY [facility] Last Admin: 10/18/22 09:12 Dose: 80 mg Fluticasone Propionate (Fluticasone Propionate Nasal 16 Gm [place]) 1 spray NOSTRIL-B BID PRN PRN Reason: for congestion Guaifenesin (Guaifenesin 100 Mg/5 Ml Liquid) 5 ml PO Q4H PRN PRN Reason: productive cough Hydroxyzine HCl (Hydroxyzine Hcl 25 Mg Tablet) 25 mg PO TID PRN PRN Reason: Anxiety Last Admin: 10/17/22 20:09 Dose: 25 mg Loperamide HCl (Loperamide Hcl 2 Mg Capsule) 2 mg PO Q8H PRN PRN Reason: loose stool Lurasidone HCl (Lurasidone Hcl 80 Mg Tablet) 80 mg PO DAILY@1400 [facility] Last Admin: 10/18/22 14:37 Dose: 80 mg Magnesium Hydroxide (Milk Of Magnesia 30 Ml Oral.Susp) 30 ml PO DAILY PRN PRN Reason: Constipation Melatonin (Melatonin 3 Mg Tablet) 6 mg PO BEDTIME [facility] Last Admin: 10/17/22 20:08 Dose: 6 mg Memantine (Memantine Hcl 10 Mg Tablet) 10 mg PO BID [facility] Last Admin: 10/18/22 09:42 Dose: 10 mg Nicotine Polacrilex (Nicotine Polacrilex 2 Mg Gum) 4 mg BUCCAL Q2H PRN PRN Reason: Nicotine Cravings Olanzapine (Olanzapine 5 Mg Tablet) 5 mg PO TID PRN PRN Reason: agitation Last Admin: 10/17/22 20:08 Dose: 5 mg Risperidone (Risperidone 3 Mg Tablet) 3 mg PO DAILY [facility] Last Admin: 10/18/22 09:13 Dose: 3 mg Risperidone (Risperidone 2 Mg Tablet) 4 mg PO BEDTIME [facility] Last Admin: 10/17/22 20:08 Dose: 4 mg Trazodone HCl (Trazodone Hcl 50 Mg Tablet) 50 mg PO BEDTIME PRN PRN Reason: insomnia Last Admin: 10/17/22 20:08 Dose: 50 mg Vitamin E (Vitamin E (Dl,Tocopheryl Acet) 180 Mg (400 Unit) Capsule) 180 mg PO DAILY [facility] Last Admin: 10/18/22 09:13 Dose: 180 mg Allergies Allergies Allergy/AdvReac Type Severity Reaction Status Date / Time No Known Allergies Allergy Verified 09/10/22 14:03 Assessment & Plan Assessment & Plan (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 contact [facility] to discuss any medications changes. collaborate with staff re placement. 10/10: DC trazodone 150 QHS and start trazodone 50 QHS. left message for [facility]. stable, at baseline. 10/11: still feeling too tired days. VPA dosing verified with pharmacy at 2 grams. continue current mgmt. awaiting return call from [facility]. 10/12: keep same treatment. 10/13: keep same treatment. 10/14: cont depakote mtg with [facility] home. 10/15: treaters mtg held. remains at baseline. planning for discharge next friday. 10/16: stable presentation. continue current mgmt. 10/17: stable presentation. continue current mgmt. planning for friday discharge. no aggressive behaviors. possibly some AH of peer saying bitch as he passed pt in [place], definitely paranoia re peers talking bad about him behind his back. 10/18: stable, isolative now. just doing time until friday discharge. at baseline. Reason for continued inpatient stay Substantial Risk for: harm to others and rapid decompensation Time Spent With Patient Time: Total time managing care of this patient today ____ minutes.
[2022-10-18 20:10] VITALS: BP 130/84; PULSE 83; RESP 17; TEMP 36.3
[2022-10-18] MEDS: Divalproex Sodium ER 500 MG TAB.ER.24H 2000 MG PO (20:10)
[2022-10-18] MEDS: traZODone HCL 50 MG TABLET PO (20:11)
[2022-10-18] MEDS: risperiDONE 2 MG TABLET 4 MG PO (20:12)
[2022-10-18] MEDS: Melatonin 3 MG TABLET 6 MG PO (20:15)
[2022-10-19] MEDS: FLUoxetine HCl 20 MG CAPSULE 80 MG PO (08:50)
[2022-10-19] MEDS: diazePAM 2 MG TABLET 4 MG PO ×3 (08:51→20:24)
[2022-10-19] MEDS: Vitamin E (Dl,Tocopheryl Acet) 180 MG (400 UNIT) CAPSULE PO (08:51)
[2022-10-19] MEDS: Memantine HCl 10 MG TABLET PO ×2 (08:51→20:23)
[2022-10-19] MEDS: risperiDONE 3 MG TABLET PO (08:51)
--- NOTE | 2022-10-19 13:45 | HO.PSYCHPN ---
Subjective Subjective Date of Service: 10/19/22 Reason For Visit: Aggressive Behavior Interim History: stable. Was seen in his room. He was eating lunch voraciously. When chart writer approached him he said he was deaf then started laughing. Relating oddly. Otherwise no notable behaviors, at baseline. Some redirection needed for inappropriate behavior. Overall calm. Isolative in his room. Denies SI/AVH. Review of Systems Review of Systems All other systems are reviewed and are negative Constitutional: Reports as per HPI and Reports no additional constitutional complaints Eyes: Reports as per HPI and Reports no additional eye complaints Reports system reviewed and no additional complaints, except as documented Cardiovascular: Reports as per HPI and Reports no additional cardiovascular complaints Respiratory: Reports as per HPI and Reports no additional respiratory complaints Gastrointestinal: Reports as per HPI and Reports no additional gastrointestinal complaints Genitourinary: Reports no additional female genitourinary complaints Musculoskeletal: Reports no additional musculoskeletal complaints Skin/Breast: Reports system reviewed and no additional complaints, except as docu Psychiatric: Reports no additional psychiatric complaints Endocrine: Reports no additional endocrine complaints Hematologic/Lymphatic: Reports no additional hematologic/lymphatic complaints Allergic/Immunologic: Reports no additional allergic/immunologic complaints Reports system reviewed and no additional complaints, except as documented and Reports Abnormal speech present Mental Status Exam Mental Status Exam Narrative: A&O. adequately dressed and groomed.? fair eye contact, attentive. No Tics or Tremors.? cooperative.? speech incr rate, nml amount.? No prolonged speech latency or dysarthria.? word-finding difficulties due to expressive aphasia.? affect is normo-intense, non-labile, odd inappropriate.? no SI/HI/AVH expressed.? Insight/ Judgment limited. OCD, i.e. spitting into his shirt repetitively, poor physical boundaries. Patient Appearance: Unkempt Patient Orientation: Person and Situation Level of Consciousness: Awake and Appropriate Patient Behavior: Invasion - Personal Space Mood Description: Constricted Affect Description: Withdrawn Patient Cognition Impaired: Yes Ability to Follow Directions: Fair Speech Pattern: Clear, Pressured and Includes Profanity Diagnostics Vital Signs (24Hr): Vital Signs - 24 hr 10/18/22 20:10 Temperature 97.4 F Pulse Rate 83 Respiratory Rate 17 Blood Pressure 130/84 BMI result Body Mass Index 35.7 Labs 10/07/22 19:46 10/15/22 08:52 Medications Medications Current Medications Acetaminophen (Acetaminophen 325 Mg Tablet) 650 mg PO Q6H PRN PRN Reason: Headache/Pain Mild Scale (1-3) Al Hydroxide/Mg Hydroxide (Magnesium Hydrox/Alum Hydrox 30 Ml Oral.Susp) 30 ml PO Q6H PRN PRN Reason: Heartburn/Nausea Diazepam (Diazepam 2 Mg Tablet) 4 mg PO TID [facility] Last Admin: 10/19/22 08:51 Dose: 4 mg Divalproex Sodium (Divalproex Sodium Er 500 Mg Tab.Er.24h) 2,000 mg PO BEDTIME [facility] Last Admin: 10/18/22 20:10 Dose: 2,000 mg Fluoxetine HCl (Fluoxetine Hcl 20 Mg Capsule) 80 mg PO DAILY [facility] Last Admin: 10/19/22 08:50 Dose: 80 mg Fluticasone Propionate (Fluticasone Propionate Nasal 16 Gm [place]) 1 spray NOSTRIL-B BID PRN PRN Reason: for congestion Guaifenesin (Guaifenesin 100 Mg/5 Ml Liquid) 5 ml PO Q4H PRN PRN Reason: productive cough Hydroxyzine HCl (Hydroxyzine Hcl 25 Mg Tablet) 25 mg PO TID PRN PRN Reason: Anxiety Last Admin: 10/17/22 20:09 Dose: 25 mg Loperamide HCl (Loperamide Hcl 2 Mg Capsule) 2 mg PO Q8H PRN PRN Reason: loose stool Lurasidone HCl (Lurasidone Hcl 80 Mg Tablet) 80 mg PO DAILY@1400 [facility] Last Admin: 10/18/22 14:37 Dose: 80 mg Magnesium Hydroxide (Milk Of Magnesia 30 Ml Oral.Susp) 30 ml PO DAILY PRN PRN Reason: Constipation Melatonin (Melatonin 3 Mg Tablet) 6 mg PO BEDTIME [facility] Last Admin: 10/18/22 20:15 Dose: 6 mg Memantine (Memantine Hcl 10 Mg Tablet) 10 mg PO BID [facility] Last Admin: 10/19/22 08:51 Dose: 10 mg Nicotine Polacrilex (Nicotine Polacrilex 2 Mg Gum) 4 mg BUCCAL Q2H PRN PRN Reason: Nicotine Cravings Olanzapine (Olanzapine 5 Mg Tablet) 5 mg PO TID PRN PRN Reason: agitation Last Admin: 10/17/22 20:08 Dose: 5 mg Risperidone (Risperidone 3 Mg Tablet) 3 mg PO DAILY [facility] Last Admin: 06/10/23 08:51 Dose: 3 mg Risperidone (Risperidone 2 Mg Tablet) 4 mg PO BEDTIME [facility] Last Admin: 10/18/22 20:12 Dose: 4 mg Trazodone HCl (Trazodone Hcl 50 Mg Tablet) 50 mg PO BEDTIME PRN PRN Reason: insomnia Last Admin: 10/18/22 20:11 Dose: 50 mg Vitamin E (Vitamin E (Dl,Tocopheryl Acet) 180 Mg (400 Unit) Capsule) 180 mg PO DAILY [facility] Last Admin: 10/19/22 08:51 Dose: 180 mg Allergies Allergies Allergy/AdvReac Type Severity Reaction Status Date / Time No Known Allergies Allergy Verified 09/10/22 14:03 Assessment & Plan Assessment & Plan (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 contact [facility] to discuss any medications changes. collaborate with staff re placement. 10/10: DC trazodone 150 QHS and start trazodone 50 QHS. left message for [facility]. stable, at baseline. 10/11: still feeling too tired days. VPA dosing verified with pharmacy at 2 grams. continue current mgmt. awaiting return call from [facility]. 10/12: keep same treatment. 10/13: keep same treatment. 10/14: cont depakote mtg with [facility] home. 10/15: treaters mtg held. remains at baseline. planning for discharge next friday. 10/16: stable presentation. continue current mgmt. 10/17: stable presentation. continue current mgmt. planning for friday discharge. no aggressive behaviors. possibly some AH of peer saying bitch as he passed pt in [place], definitely paranoia re peers talking bad about him behind his back. 10/18: stable, isolative now. just doing time until friday discharge. at baseline. 10/19: Continue current management. Reason for continued inpatient stay Substantial Risk for: harm to self, harm to others, inability to function and rapid decompensation Time Spent With Patient Time: Total time managing care of this patient today ____ minutes.
[2022-10-19] MEDS: Lurasidone HCl 80 MG TABLET PO (14:46)
[2022-10-19] MEDS: traZODone HCL 50 MG TABLET PO (20:23)
[2022-10-19] MEDS: Divalproex Sodium ER 500 MG TAB.ER.24H 2000 MG PO (20:23)
[2022-10-19] MEDS: Melatonin 3 MG TABLET 6 MG PO (20:23)
[2022-10-19] MEDS: risperiDONE 2 MG TABLET 4 MG PO (20:23)
[2022-10-19 20:26] VITALS: PULSE 69; RESP 18; TEMP 36.3; O2SAT 96
[2022-10-20] MEDS: Memantine HCl 10 MG TABLET PO ×2 (09:22→20:33)
[2022-10-20] MEDS: Vitamin E (Dl,Tocopheryl Acet) 180 MG (400 UNIT) CAPSULE PO (09:22)
[2022-10-20] MEDS: risperiDONE 3 MG TABLET PO (09:22)
[2022-10-20] MEDS: diazePAM 2 MG TABLET 4 MG PO ×3 (09:22→20:33)
[2022-10-20] MEDS: FLUoxetine HCl 20 MG CAPSULE 80 MG PO (09:23)
[2022-10-20] MEDS: Lurasidone HCl 80 MG TABLET PO (14:35)
--- NOTE | 2022-10-20 15:47 | HO.PSYCHPN ---
Subjective Subjective Date of Service: 10/20/22 Reason For Visit: Aggressive Behavior Interim History: Was seen in his room. Patient anxious about the timing of DC tomorrow. He is fixated on leaving by 9 AM so he can make his drug appointment (He is referring to a psychiatrist appointment and believes he was let go from different practices due to not showing to appointments.) Otherwise no notable behaviors, at baseline. Some redirection needed for perseverative behavior. Overall calm. Isolative in his room. Denies SI/AVH. Review of Systems Review of Systems All other systems are reviewed and are negative Constitutional: Reports as per HPI and Reports no additional constitutional complaints Eyes: Reports as per HPI and Reports no additional eye complaints Reports system reviewed and no additional complaints, except as documented Cardiovascular: Reports as per HPI and Reports no additional cardiovascular complaints Respiratory: Reports as per HPI and Reports no additional respiratory complaints Gastrointestinal: Reports as per HPI and Reports no additional gastrointestinal complaints Genitourinary: Reports no additional female genitourinary complaints Musculoskeletal: Reports no additional musculoskeletal complaints Skin/Breast: Reports system reviewed and no additional complaints, except as docu Psychiatric: Reports no additional psychiatric complaints Endocrine: Reports no additional endocrine complaints Hematologic/Lymphatic: Reports no additional hematologic/lymphatic complaints Allergic/Immunologic: Reports no additional allergic/immunologic complaints Reports system reviewed and no additional complaints, except as documented and Reports Abnormal speech present Mental Status Exam Mental Status Exam Narrative: A&O. adequately dressed and groomed.? fair eye contact, attentive. No Tics or Tremors.? cooperative.? speech incr rate, nml amount.? No prolonged speech latency or dysarthria.? word-finding difficulties due to expressive aphasia.? affect is normo-intense, non-labile, odd inappropriate.? no SI/HI/AVH expressed.? Insight/ Judgment limited. OCD, i.e. spitting into his shirt repetitively, poor physical boundaries. Patient Appearance: Unkempt Patient Orientation: Person and Situation Level of Consciousness: Awake and Appropriate Patient Behavior: Invasion - Personal Space Mood Description: Constricted Affect Description: Withdrawn Patient Cognition Impaired: Yes Ability to Follow Directions: Fair Speech Pattern: Clear, Pressured and Includes Profanity Diagnostics Vital Signs (24Hr): Vital Signs - 24 hr 10/19/22 20:26 Temperature 97.4 F Pulse Rate 69 Respiratory Rate 18 Pulse Oximetry 96 Oxygen Delivery Method Room Air BMI result Body Mass Index 35.7 Labs 10/07/22 19:46 10/15/22 08:52 Medications Medications Current Medications Acetaminophen (Acetaminophen 325 Mg Tablet) 650 mg PO Q6H PRN PRN Reason: Headache/Pain Mild Scale (1-3) Al Hydroxide/Mg Hydroxide (Magnesium Hydrox/Alum Hydrox 30 Ml Oral.Susp) 30 ml PO Q6H PRN PRN Reason: Heartburn/Nausea Diazepam (Diazepam 2 Mg Tablet) 4 mg PO TID [facility] Last Admin: 10/20/22 14:35 Dose: 4 mg Divalproex Sodium (Divalproex Sodium Er 500 Mg Tab.Er.24h) 2,000 mg PO BEDTIME [facility] Last Admin: 10/19/22 20:23 Dose: 2,000 mg Fluoxetine HCl (Fluoxetine Hcl 20 Mg Capsule) 80 mg PO DAILY [facility] Last Admin: 10/20/22 09:23 Dose: 80 mg Fluticasone Propionate (Fluticasone Propionate Nasal 16 Gm [place]) 1 spray NOSTRIL-B BID PRN PRN Reason: for congestion Guaifenesin (Guaifenesin 100 Mg/5 Ml Liquid) 5 ml PO Q4H PRN PRN Reason: productive cough Hydroxyzine HCl (Hydroxyzine Hcl 25 Mg Tablet) 25 mg PO TID PRN PRN Reason: Anxiety Last Admin: 10/17/22 20:09 Dose: 25 mg Loperamide HCl (Loperamide Hcl 2 Mg Capsule) 2 mg PO Q8H PRN PRN Reason: loose stool Lurasidone HCl (Lurasidone Hcl 80 Mg Tablet) 80 mg PO DAILY@1400 [facility] Last Admin: 10/20/22 14:35 Dose: 80 mg Magnesium Hydroxide (Milk Of Magnesia 30 Ml Oral.Susp) 30 ml PO DAILY PRN PRN Reason: Constipation Melatonin (Melatonin 3 Mg Tablet) 6 mg PO BEDTIME [facility] Last Admin: 10/19/22 20:23 Dose: 6 mg Memantine (Memantine Hcl 10 Mg Tablet) 10 mg PO BID [facility] Last Admin: 10/20/22 09:22 Dose: 10 mg Nicotine Polacrilex (Nicotine Polacrilex 2 Mg Gum) 4 mg BUCCAL Q2H PRN PRN Reason: Nicotine Cravings Olanzapine (Olanzapine 5 Mg Tablet) 5 mg PO TID PRN PRN Reason: agitation Last Admin: 10/17/22 20:08 Dose: 5 mg Risperidone (Risperidone 3 Mg Tablet) 3 mg PO DAILY [facility] Last Admin: 10/20/22 09:22 Dose: 3 mg Risperidone (Risperidone 2 Mg Tablet) 4 mg PO BEDTIME [facility] Last Admin: 10/19/22 20:23 Dose: 4 mg Trazodone HCl (Trazodone Hcl 50 Mg Tablet) 50 mg PO BEDTIME PRN PRN Reason: insomnia Last Admin: 10/19/22 20:23 Dose: 50 mg Vitamin E (Vitamin E (Dl,Tocopheryl Acet) 180 Mg (400 Unit) Capsule) 180 mg PO DAILY [facility] Last Admin: 10/20/22 09:22 Dose: 180 mg Allergies Allergies Allergy/AdvReac Type Severity Reaction Status Date / Time No Known Allergies Allergy Verified 09/10/22 14:03 Assessment & Plan Assessment & Plan (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 contact vijaya to discuss any medications changes. collaborate with staff re placement. 10/10: DC trazodone 150 QHS and start trazodone 50 QHS. left message for vijaya. stable, at baseline. 10/11: still feeling too tired days. VPA dosing verified with pharmacy at 2 grams. continue current mgmt. awaiting return call from vijaya. 10/12: keep same treatment. 10/13: keep same treatment. 10/14: cont depakote mtg with hrp home. 10/15: treaters mtg held. remains at baseline. planning for discharge next friday. 10/16: stable presentation. continue current mgmt. 10/17: stable presentation. continue current mgmt. planning for friday discharge. no aggressive behaviors. possibly some AH of peer saying bitch as he passed pt in [place], definitely paranoia re peers talking bad about him behind his back. 10/18: stable, isolative now. just doing time until friday discharge. at baseline. 10/19: Continue current management. 10/20: Eager to leave early Friday. Reason for continued inpatient stay Substantial Risk for: harm to others and rapid decompensation Time Spent With Patient Time: Total time managing care of this patient today ____ minutes.
[2022-10-20] MEDS: Melatonin 3 MG TABLET 6 MG PO (20:32)
[2022-10-20] MEDS: Divalproex Sodium ER 500 MG TAB.ER.24H 2000 MG PO (20:32)
[2022-10-20] MEDS: risperiDONE 2 MG TABLET 4 MG PO (20:33)
[2022-10-20 20:42] VITALS: BP 134/84; PULSE 89; TEMP 36.6; O2SAT 94
[2022-10-20] MEDS: traZODone HCL 50 MG TABLET PO (21:28)
[2022-10-21] MEDS: diazePAM 2 MG TABLET 4 MG PO (08:39)
[2022-10-21] MEDS: Memantine HCl 10 MG TABLET PO (08:40)
[2022-10-21] MEDS: Vitamin E (Dl,Tocopheryl Acet) 180 MG (400 UNIT) CAPSULE PO (08:40)
[2022-10-21] MEDS: FLUoxetine HCl 20 MG CAPSULE 80 MG PO (08:40)
[2022-10-21] MEDS: risperiDONE 3 MG TABLET PO (08:40)
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
== END 2022-10-21 09:30 | disposition home or self-care (01) | DRG 883 ==
LOC: HO.ED 20:47 → HO.PADLT16 10-08 17:07
PROVIDERS: Psychiatry & Neurology Psychiatry; Admitting Provider Psychiatry & Neurology Psychiatry; Emergency Provider Emergency Medicine; Visit Provider Psychiatry & Neurology Psychiatry
DX: F63.81 Intermittent explosive disorder (principal); Q86.0 Fetal alcohol syndrome (dysmorphic); F41.9 Anxiety disorder, unspecified; F80.1 Expressive language disorder; F32.A Depression, unspecified; F42.9 Obsessive-compulsive disorder, unspecified; Z20.822 Contact with and (suspected) exposure to COVID-19; Z87.891 Personal history of nicotine dependence; Z79.51 Long term (current) use of inhaled steroids; Z79.899 Other long term (current) drug therapy
CPT/HCPCS: 36415; 80053; 80164; 80307; 81003; 82140; 85025; 87635; 93005; 99285; S9485

== ENCOUNTER → 2022-10-08 16:21 | Outpatient (BNV) | payer OTHER, SELFPAY | PROVIDERS: Admitting Provider Psychiatry & Neurology Psychiatry; Emergency Provider Emergency Medicine; Visit Provider Psychiatry & Neurology Psychiatry | DX: F42.9 Obsessive-compulsive disorder, unspecified (principal); Q86.0 Fetal alcohol syndrome (dysmorphic); F80.1 Expressive language disorder; F63.81 Intermittent explosive disorder; F41.9 Anxiety disorder, unspecified; F32.9 Major depressive disorder, single episode, unspecified | CPT/HCPCS: 90792; 99231; 99232; 99233; 99238 ==

== ENCOUNTER 2022-11-06 13:02 | Emergency (ER) | payer OTHER, SELFPAY ==
--- NOTE | 2022-11-06 13:34 | ED_ITS ---
HPI - Anxiety General Chief Complaint: Psychiatric Symptoms Stated Complaint: SEC 12 OUTBURST W/STAFF,CALM/COOP PER EMS Time Seen by Provider: 11/06/22 13:04 Source: patient Mode of arrival: EMS Limitations: other (Expressive language impairment) History of Present Illness HPI narrative: Patient comes emergency room from a senior living via ambulance. The patient explains that earlier today he got very frustrated with the staff. Patient states that he was requesting assistance from the staff, he was ignored for over an hour. Patient finally became very angry, told someone from the staff that he wished they were . Patient states that he is very sorry that he verbally hurt other people. States that he did not mean what he said, states it was an outburst of frustration. Patient states that after the occurrence, he went to his room, started praying which helped him to calm down. Then the ambulance s howed up and brought him to the emergency room. Patient states that he was waiting until the end of the day for things to calm down and to apologize to the staff. Patient denies suicidal or homicidal ideation Related Data Home Medications Medication Instructions Recorded Confirmed memantine 10 mg tablet 1 tab PO BID 10/26/21 11/06/22 fluoxetine 40 mg capsule 80 mg PO DAILY 02/14/22 11/06/22 lurasidone 120 mg tablet 120 mg PO DAILY 10/22/22 11/06/22 hydroxyzine HCl 25 mg tablet 25 mg PO TID 11/06/22 11/06/22 risperidone 4 mg tablet 4 mg PO BID 11/06/22 11/06/22 trazodone 150 mg tablet 150 mg PO BEDTIME 11/06/22 11/06/22 Previous Rx's Medication Instructions Recorded diazepam 2 mg tablet 4 mg PO TID 30 days #180 tabs 04/03/22 divalproex 500 mg tablet,extended 2,000 mg PO BEDTIME 30 days #120 04/03/22 release 24 hr tabs melatonin 3 mg tablet 6 mg PO BEDTIME 90 days #180 tabs 05/06/22 vitamin E (dl, acetate) 180 mg 180 mg PO DAILY 90 days #90 caps 05/06/22 (400 unit) capsule fluticasone propionate 50 1 spray intranasal BID PRN for 07/30/22 mcg/actuation nasal congestion #16 grams spray,suspension Allergies Allergy/AdvReac Type Severity Reaction Status Date / Time No Known Allergies Allergy Verified 10/22/22 15:05 Review of Systems Review of Systems: Constitutional : No Weight loss, No Fever, No Chills, No Night Sweats, No Fa tigue, No Malaise ENT/Mouth : No Hearing loss, No Ear Pain, No Nasal Congestion, No Sinus Pain, No Hoarseness, No sore throat, No Rhinorrhea, No Swallowing Difficulty Eyes: No Eye Pain, No Swelling, No Redness, No Foreign Body, No Discharge, No Vision Changes Cardiovascular : No Chest Pain, No SOB, No Dyspnea on Exertion, No Orthopnea, No Edema, No Palpitations Respiratory : No Cough, No Sputum, No Wheezing, No Smoke Exposure, No Dyspnea Gastrointestinal : No Nausea, No Vomiting, No Diarrhea, No Constipation, No abdominal Pain, No Hematochezia, No Melena Genitourinary : no irregular bleeding, No Dysuria, No Urinary Frequency, No Hematuria, No Urinary Incontinence, No Urgency, No Flank Pain, No Urinary Flow Changes, No Hesitancy Musculoskeletal : No joint pain, No Myalgias, No Joint Swelling Skin : No Skin Lesions, No rash Neuro : No Weakness, No Numbness, No Paresthesias, No Loss of Consciousness, No Dizziness, No Headache Psych : Complaining of anxiety/frustration, denies suicidal or homicidal ideation Heme/Lymph: No Bruising, No Bleeding,No Lymphadenopathy Endocrine : No Polyuria, No Polydipsia, No Temperature Intolerance PMFSH Past Medical History Medical History Anal fistula Bunion Jalyn onychomycosis COVID-19 alcohol syndrome Flat feet, bilateral Insomnia Obsessive compulsive disorder Rectal bleeding Screening for diabetes mellitus Screening for hyperlipidemia Surgical History No pertinent past surgical history Family History Family History Mother No problems noted. Father No problems noted. Other Substance use disorder Social History Social History (Updated 10/22/22 @ 15:21 by Cornel Chavez PA-C) Household Members: None Household Members Other:: snf Housing: Other Housing Other:: senior living Do you presently have visiting nurse or other home services: Yes Unable to assess alcohol history related to: Unknown Alcohol intake: never Patient Tobacco Use Status: Current someday Tobacco user Tobacco use type: Cigarette Cigarette Packs Per Day: 0.5 Cigarettes Per Day: 10.0 Years Smoked: 17 years old Smoked in Last 30 Days: No e-Cigarette/Vaping Use: Never Used Second Hand Smoke Exposure: Yes Use of substances other than those prescribed or required for medical reasons: No Advance Directives: No Healthcare Proxy: No Guardian: No service: No Current occupational status: disabled Sexual orientation: Lesbian/Blackwell/Homosexual Cognitive needs: No Hearing needs: No Vision needs: No Physical Exam Vital Signs: Vital Signs: Last Vital Signs Temp 97.5 F 11/06/22 14:01 Pulse 79 11/06/22 14:01 Resp 18 11/06/22 14:01 BP 156/100 H 11/06/22 14:01 Pulse Ox 97 11/06/22 14:01 O2 Del Method Room Air 11/06/22 14:01 BMI result Body Mass Index 35.3 Const: Other: Appearance: Alert. Oriented X3. No acute distress. Eyes: Pupils equal, round and reactive to light. ENT: Pharynx normal. Neck: Normal inspection. Neck supple. No lymph nodes noted. No crepitus CVS: Normal heart rate and rhythm. Pulses normal. Normal S1 and S2 Respiratory: No respiratory distress. Breath sounds normal. No Wheezing. No rales Abdomen: Soft and nontender. No rigidity. No distention. Skin: Skin warm and dry. Normal skin color. Normal skin turgor. Extremities: No lower extremity edema. No Lacerations. No Rash Neuro: No motor deficit. No sensory deficit. Moving all extremities. No slurred speech. CN 2 through 12 grossly intact Psych: calm, cooperative, normal affect Course Course Course Narrative: -lab results pending -since that patient had an anger outburst, denies SI or HI, Section 12 was started prior to arrival -care team consult pending -physician observation started at 13:30 Medical Decision Making Medical Decision Making MDM Narrative: -behavioral health network evaluated the patient, patient is not suicidal, not homicidal, patient had a moment of anxiety/anger outburst. -care team spoke with the patient's senior living staff, they will take him back. -after patient was discharged, patient's nurse informed me that the senior living change their minds and they will not take him back. Patient has already been seen by behavioral health/care team. -patient is calm, cooperative. Unclear why the senior living will not take him back. Care team and patient's nurse try getting touch with the patient's senior living, but they will not answer the phone. -so far it looks like the patient will be staying the behavioral health pod -physician observation started at 20:45 Differential Diagnosis Differential Diagnoses: The differential diagnosis associated with the presentation includes (Anxiety, depression, anger outburst) Lab Data MDM Lab Attestation statement: I reviewed the patient's lab results. (No significant electrolyte abnormalities. Patient tested positive for benzodiazepines which is being prescribed to him) 11/06/22 14:36 11/06/22 14:36 Labs: Lab Results 11/06/22 11/06/22 11/06/22 Range/Units 13:21 13:21 14:36 WBC 9.2 (4.8-10.8) X10*3/uL RBC 5.11 (4.60-5.80) X10*6/uL Hgb 15.6 (14.0-18.0) g/dl Hct 45.5 (42.0-52.0) % MCV 89.0 (80.0-98.0) fL MCH 30.5 (27.0-33.0) pg MCHC 34.3 (31.0-36.0) g/dl RDW 11.9 (11.0-16.0) % Plt Count 271 (160-400) X10*3/uL MPV 9.6 (9.4-12.4) fL Immature Gran % (Auto) 0.7 H (0.0-0.4) % Neut % (Auto) 63.3 (45-73) % Lymph % (Auto) 26.7 (20-40) % Hancock % (Auto) 7.7 (2-11) % Eos % (Auto) 1.2 (0-4) % Baso % (Auto) 0.4 (0-2) % Lymph # (Auto) 2.5 (1.2-4.9) X10*3/uL Hancock # (Auto) 0.7 (0.1-1.2) X10*3/uL Eos # (Auto) 0.1 (0.0-0.4) X10*3/uL Baso # (Auto) 0.0 (0.0-0.2) X10*3/uL Abs Immat Gran (auto) 0.06 H (0.00-0.03) X10*3/uL Absolute Neuts (auto) 5.8 (2.0-8.3) x10*3/uL Absolute Nucleated RBC 0.000 (0.0-0.012) X10*3/uL Nucleated RBC % (auto) 0.0 (0.0-0.2) /100WBC Sodium (135-145) mmol/L Potassium (3.3-5.1) mmol/L Chloride (96-108) mmol/L Carbon Dioxide (22-29) mmol/L Anion Gap (12-20) BUN (9-16) mg/dL Creatinine (0.5-1.4) mg/dL Estim Creat Clear Calc Estimated GFR Random Glucose (60-115) mg/dL Calcium (8.4-10.2) mg/dL Urine Color Yellow Urine Appearance Clear Urine pH 6.5 (5.0-9.0) Ur Specific [place] 1.025 (1.005-1.025) Urine Protein Negative (Neg-Trace) mg/dL Urine Glucose (UA) Negative (Negative) mg/dL Urine Ketones Negative (Negative) mg/dL Urine Blood Negative (Negative) Urine Nitrite Negative (Negative) Ur Leukocyte Esterase Negative (Negative) Urine Opiates Screen Not Detected (Not Detect) Urine Fentanyl Screen Not Detected (Not Detect) Ur Barbiturates Screen Not Detected (Not Detect) Ur Phencyclidine Scrn Not Detected (Not Detect) Ur Amphetamines Screen Not Detected (Not Detect) U Benzodiazepines Scrn POSITIVE H (Not Detect) Urine Cocaine Screen Not Detected (Not Detect) U Marijuana (THC) Screen Not Detected (Not Detect) COVID-19 (NGOZI) (Negative) COVID-19 Clin Com 11/06/22 11/06/22 Range/Units 14:36 14:36 WBC (4.8-10.8) X10*3/uL RBC (4.60-5.80) X10*6/uL Hgb (14.0-18.0) g/dl Hct (42.0-52.0) % MCV (80.0-98.0) fL MCH (27.0-33.0) pg MCHC (31.0-36.0) g/dl RDW (11.0-16.0) % Plt Count (160-400) X10*3/uL MPV (9.4-12.4) fL Immature Gran % (Auto) (0.0-0.4) % Neut % (Auto) (45-73) % Lymph % (Auto) (20-40) % Hancock % (Auto) (2-11) % Eos % (Auto) (0-4) % Baso % (Auto) (0-2) % Lymph # (Auto) (1.2-4.9) X10*3/uL Hancock # (Auto) (0.1-1.2) X10*3/uL Eos # (Auto) (0.0-0.4) X10*3/uL Baso # (Auto) (0.0-0.2) X10*3/uL Abs Immat Gran (auto) (0.00-0.03) X10*3/uL Absolute Neuts (auto) (2.0-8.3) x10*3/uL Absolute Nucleated RBC (0.0-0.012) X10*3/uL Nucleated RBC % (auto) (0.0-0.2) /100WBC Sodium 143 (135-145) mmol/L Potassium 3.6 D (3.3-5.1) mmol/L Chloride 103 (96-108) mmol/L Carbon Dioxide 29 (22-29) mmol/L Anion Gap 15 (12-20) BUN 10 (9-16) mg/dL Creatinine 0.87 (0.5-1.4) mg/dL Estim Creat Clear Calc 145.1 Estimated GFR > 60 Random Glucose 140 H (60-115) mg/dL Calcium 9.9 (8.4-10.2) mg/dL Urine Color Urine Appearance Urine pH (5.0-9.0) Ur Specific [place] (1.005-1.025) Urine Protein (Neg-Trace) mg/dL Urine Glucose (UA) (Negative) mg/dL Urine Ketones (Negative) mg/dL Urine Blood (Negative) Urine Nitrite (Negative) Ur Leukocyte Esterase (Negative) Urine Opiates Screen (Not Detect) Urine Fentanyl Screen (Not Detect) Ur Barbiturates Screen (Not Detect) Ur Phencyclidine Scrn (Not Detect) Ur Amphetamines Screen (Not Detect) U Benzodiazepines Scrn (Not Detect) Urine Cocaine Screen (Not Detect) U Marijuana (THC) Screen (Not Detect) COVID-19 (NGOZI) Negative (Negative) COVID-19 Clin Com See Note Discharge Plan Discharge Clinical Impression: Intermittent explosive disorder in adult Patient Disposition: Home, Self-Care Instructions: Anxiety (ED) Additional Instructions: Please follow-up with your primary care physician tomorrow. If you have any worsening or new symptoms, please return to the emergency room or call 911 Prescriptions: No Action melatonin 3 mg tablet 6 mg PO BEDTIME 90 Days Qty: 180 2RF vitamin E (dl, acetate) 180 mg (400 unit) capsule 180 mg PO DAILY 90 Days Qty: 90 3RF fluticasone propionate 50 mcg/actuation spray,suspension 1 spray intranasal BID PRN (Reason: for congestion) Qty: 16 0RF diazepam 2 mg Tablet 4 mg PO TID 30 Days Qty: 180 0RF divalproex 500 mg Tablet Extended Release 24 Hr 2,000 mg PO BEDTIME 30 Days Qty: 120 0RF memantine 10 mg tablet 1 tab PO BID fluoxetine 40 mg capsule 80 mg PO DAILY risperidone 4 mg tablet 4 mg PO BID trazodone 150 mg tablet 150 mg PO BEDTIME hydroxyzine HCl 25 mg tablet 25 mg PO TID lurasidone 120 mg tablet 120 mg PO DAILY Interventions: [place]-Suicide Risk Severity Scale Last Done: 11/06/22 17:45
--- NOTE | 2022-11-06 13:35 | PC.NURSE ---
Went to triage patient, however he was eating at the time and requested to eat before doing triage. Will reapproach patient
[2022-11-06 13:36] LABS: Appearance Urine Clear; Color Urine Yellow; Glucose Urine UA Negative (Negative); Leukocyte Esterase Urine Negative (Negative); Nitrite Urine Negative (Negative); PH 6.5 (5.0-9.0); Specific Gravity - Urine 1.025 (1.005-1.025); Urine Blood Negative (Negative); Urine Ketones Negative (Negative); Urine Protein Negative (Neg-Trace)
[2022-11-06 13:48] LABS: Amphetamine Screen Urine Not Detected (Not Detect); Barbiturates, Urine Not Detected (Not Detect); Benzodiazepines Screen Urine POSITIVE (Not Detect); Cannabinoid Screen Urine Not Detected (Not Detect); Cocaine Screen Urine Not Detected (Not Detect); Fentanyl, urine Not Detected (Not Detect); Opiate Screen Urine Not Detected (Not Detect); Phencyclidine Screen Urine Not Detected (Not Detect)
[2022-11-06 14:01] VITALS: BP 156/100; PULSE 79; RESP 18; TEMP 36.4; O2SAT 97; BMI 35.3
[2022-11-06 14:41] LABS: MANUAL DIFF FLAG NO
[2022-11-06 14:44] LABS: Basophils Percent Auto 0.4 % (0-2); Eosinophils Absolute Auto 0.1 X10*3/uL (0.0-0.4); Eosinophils Percent Auto 1.2 % (0-4); Hematocrit 45.5 % (42.0-52.0); Hemoglobin 15.6 g/dl (14.0-18.0); Imm Gran Abs Auto 0.06 X10*3/uL (0.00-0.03); Imm Gran Pct Auto 0.7 % (0.0-0.4); Lymphocytes Absolute Auto 2.5 X10*3/uL (1.2-4.9); Lymphocytes Percent Auto 26.7 % (20-40); Mean Corpuscular HGB Conc 34.3 g/dl (31.0-36.0); Mean Corpuscular Hemoglobin 30.5 pg (27.0-33.0); Mean Platelet Volume 9.6 fL (9.4-12.4); Monocytes Absolute Auto 0.7 X10*3/uL (0.1-1.2); Monocytes Percent Auto 7.7 % (2-11); Neutrophils Absolute Auto 5.8 x10*3/uL (2.0-8.3); Neutrophils Percent Auto 63.3 % (45-73); Platelet Count 271 X10*3/uL (160-400); Red Blood Count 5.11 X10*6/uL (4.60-5.80); Red Cell Distribution Width 11.9 % (11.0-16.0); White Blood Count 9.2 X10*3/uL (4.8-10.8)
[2022-11-06 14:56] LABS: Anion Gap 15 (12-20); Blood Urea Nitrogen 10 mg/dL (9-16); Calcium 9.9 mg/dL (8.4-10.2); Carbon Dioxide 29 mmol/L (22-29); Chloride 103 mmol/L (96-108); Creatinine Clr Calc Pharmacy 145.1; Estimated Glomerular Filt Rate > 60; Glucose Random 140 mg/dL (60-115); Potassium 3.6 mmol/L (3.3-5.1); Sodium 143 mmol/L (135-145)
[2022-11-06 14:58] LABS: COVID-19 Test Negative (Negative); IDNOW Serial# BCCEAD1C
--- NOTE | 2022-11-06 16:57 | MHC.CARE ---
Pt was seen by CARE team and discharged back to [facility].
--- NOTE | 2022-11-06 17:18 | MHC.CARE ---
attempted to outreach to Madd[place], director of patient's [facility] regarding transportation back, , however voice mailbox is full.
[2022-11-06 21:08] VITALS: BP 113/73; PULSE 74; RESP 17; TEMP 36.6; O2SAT 94
[2022-11-06] MEDS: Lurasidone HCl 40 MG TABLET 120 MG PO (21:11)
[2022-11-06] MEDS: Divalproex Sodium ER 500 MG TAB.ER.24H 2000 MG PO (21:11)
[2022-11-06] MEDS: hydrOXYzine HCL 25 MG TABLET PO (21:12)
[2022-11-06] MEDS: Melatonin 3 MG TABLET 6 MG PO (21:12)
[2022-11-06] MEDS: Vitamin E (Dl,Tocopheryl Acet) 180 MG (400 UNIT) CAPSULE PO (21:12)
[2022-11-06] MEDS: diazePAM 2 MG TABLET 4 MG PO (21:12)
[2022-11-06] MEDS: risperiDONE 2 MG TABLET 4 MG PO (21:12)
[2022-11-06] MEDS: Memantine HCl 10 MG TABLET PO (21:12)
[2022-11-06] MEDS: traZODone HCL 50 MG TABLET 150 MG PO (21:12)
== END 2022-11-06 22:09 | disposition home or self-care (01) ==
PROVIDERS: Emergency Provider Emergency Medicine; PCP Physician Assistant
DX: F63.81 Intermittent explosive disorder (principal); Z20.822 Contact with and (suspected) exposure to COVID-19; Z79.899 Other long term (current) drug therapy; F17.210 Nicotine dependence, cigarettes, uncomplicated
CPT/HCPCS: 80048; 80307; 81003; 85025; 87635; 99284; 99285; S9485

== ENCOUNTER 2023-01-15 11:29 | Outpatient (AMB) | payer OTHER, SELFPAY ==
[2023-01-15 11:30] VITALS: PULSE 94; O2SAT 96; BMI 37.8
--- NOTE | 2023-01-15 11:30 | MHC.PC.OV ---
Vital Signs 01/15/23 11:30 Height 6 ft Weight 279 lb BMI 37.8 Blood Pressure Location Lt brachial Position Sitting Pulse 94 Pulse Source Pulse Oximeter Temp Source Skin Pulse Oximetry (%) 96 Oxygen Delivery Method Room Air Comment refused BP Intake Visit Reasons: Annual PE Intake Note: Patient is here today for a physical. Allergies No Known Allergies Allergy (Verified 01/15/23 11:37) Tobacco use date assessed: 01/15/23 Dental Screening Dental Screen Date: 01/15/23 Did you have a dental visit in the last 12 months?: Yes Did you have a dental problem in the last 6 months where you did not have access to dental care?: No Was dental information given to patient?: Patient has dentist HPI Annual PE HPI Details Patient is a 42-year-old male who presents today for physical exam. Patient of RAMYA Chavez. medical history significant for OCD, intermittent explosive disorder in adult, lumbar spine pain, obesity, tobacco dependence, dyspepsia - requested prescription for Pepto-Bismol p.r.n.. - patient has been receiving this medication at senior living and now they need a prescription. Patient lives at a senior living and today he is accompanied by a group practice pediatrician. Patient has declined to check his blood pressure. Patient reports dentist visit in the last year. Declines referral to eye doctor for an exam - denies problems with his eyes. Reports he was seen by an urgent care provider couple days ago and was started on antibiotics due to left great toe ingrown toenail infection - patient requesting referral to see Podiatry. In addition, patient reports left neck red painful area for the past some time, reports scratching that area. No shortness of breath or chest pain. We also discussed patient's need for tetanus vaccine. [facility] Medical History Anal fistula Bunion Jalyn onychomycosis COVID-19 alcohol syndrome Flat feet, bilateral Insomnia Obsessive compulsive disorder Rectal bleeding Screening for diabetes mellitus Screening for hyperlipidemia Surgical History No pertinent past surgical history Family History Mother No problems noted. Father No problems noted. Other Substance use disorder Social History Household Members: None Household Members Other:: detention Housing: Other Housing Other:: senior living Do you presently have visiting nurse or other home services: Yes Unable to assess alcohol history related to: Unknown Alcohol intake: never Patient Tobacco Use Status: Current someday Tobacco user Tobacco use type: Cigarette Cigarette Packs Per Day: 0.5 Cigarettes Per Day: 10.0 Years Smoked: 17 years old e-Cigarette/Vaping Use: Never Used Second Hand Smoke Exposure: Yes service: No Current occupational status: disabled Sexual orientation: Lesbian/Blackwell/Homosexual Cognitive needs: No Hearing needs: No Vision needs: No Questionnaire Thrive Questionnaire Date Thrive assessed: 07/05/22 AUDIT C Alcohol Use Questionnaire (AUDIT-C) 1. How often do you have a drink containing alcohol?: Never 2. How many drinks containing alcohol do you have on a typical day when you are drinking?: 1 or 2 3. How often do you have six or more drinks on one occasion?: Never Total Score: 0 Score Reviewed/Action Taken: No SHRUTI-7 AMB Questionnaire SHRUTI-7 Date SHRUTI - 7 assessed: 09/10/22 Source: Developed by Drs. Antonio Hernandez, Nelida Catalan, Han Humphrey and colleagues, with an educational robbie from [employer] Review of Systems Const Denies body aches, Denies chills, Denies fever(s) and Denies headache(s) Eyes Denies change in vision ENT Denies dizziness, Denies otalgia, Denies headache(s), Denies nasal discharge, Denies sinus pain and Denies sore throat Card Denies chest pain, Denies edema, Denies lightheadedness and Denies dyspnea Resp Denies dyspnea and Denies wheezing GI Denies abdominal pain and Reports dyspepsia (Intermittent) Denies dysuria Musc Denies myalgias Skin/Breast Reports as per HPI and Denies rash Neuro Denies dizziness and Denies headache(s) Aller/Immun Denies wheezing Physical exam (Primary Care) Vital Signs: Last Vital Signs Pulse 94 01/15/23 11:30 Pulse Ox 96 01/15/23 11:30 Oxygen Delivery Method Room Air 01/15/23 11:30 BMI result Body Mass Index 37.8 Tobacco/Smoking Status: Tobacco use Status Tobacco use date assessed 01/15/23 01/15/23 11:35 Patient Tobacco Use Status Current someday Tobacco 01/15/23 11:35 Tobacco use type Cigarette 01/15/23 11:35 e-Cigarette/Vaping Use Never Used 01/15/23 11:35 Thrive Assessment: Date of Thrive Assessment Date Thrive assessed 07/05/22 01/15/23 11:35 Const General: cooperative and no acute distress Orientation/consciousness: patient oriented x3 HENMT Head: Yes normocephalic and Yes atraumatic Ears: TM's normal bilaterally Face and sinus: Yes sinuses nontender Mouth: oropharynx normal and moist mucous membranes Throat: Yes posterior oropharynx normal Eyes General: appearance normal, both eyes and all related structures Pupils: Equal, round and reactive pupils present EOM: EOMs intact bilaterally Neck Neck: Yes normal visual inspection, Yes full ROM and Yes no lymphadenopathy Thyroid: Thyroid normal Resp Effort & Inspection: normal respiratory effort and able to speak in complete sentences Auscultation: clear to auscultation bilaterally, no crackles, no rales, no rhonchi and no wheezes Cardio Rate: regular rate Rhythm: regular rhythm Heart sounds: S1 normal heart sound present, S2 normal heart sound present and no murmurs GI Palpation (GI): Soft to palpation, not firm, nontender, no guarding, not rigid and no hepatosplenomegaly Auscultation: normal bowel sounds General: No CVA tenderness Back/Spine/Pelvis Back: No CVA tenderness Skin Other: Left anterior neck flat erythematous area about 1cm in diameter with being woundbed about 3mm, no discharge noted Bilateral great toes with brown discoloration, left great toe with mild erythema - ingrown toenail noted Neuro General: patient oriented x3 Cranial nerves: Yes Equal, round and reactive pupils present Gait exam (Neuro): Normal gait present Extrem General: Yes full ROM and No edema Immunizations Boostrix Tdap Performing Provider: JAIR Hyman Administered by: EVER Castro on 01/15/23 12:01 Dose Route Admin Location Lot Number Expiration Date NDC Picking Supervisor 0.5 mL IM Left Deltoid [id number] 04/16/25 [id number] [employer] VIS Given Date VIS Provided VIS Publication Date 01/15/23 Single Vaccine 20 Eligibility Eligibility Date Funding Source Not [facility] Eligible 01/15/23 Private Assessment and Plan Assessment & Plan (1) Dyspepsia: Code(s): R10.13 - Epigastric pain Plan: Continue Pepto-Bismol daily p.r.n. (2) Skin lesion: Code(s): L98.9 - Disorder of the skin and subcutaneous tissue, unspecified Plan: Start mupirocin ointment b.i.d. for 7 days Keep area dry and clean, do not scratch Follow-up no improvement after finishing ointment (3) Toenail fungus: Code(s): B35.1 - Tinea unguium Plan: Podiatry referral Continue cephalexin as prescribed for left ingrown great toenail (4) Obese: Code(s): E66.9 - Obesity, unspecified Qualifiers: Obesity type: due to excess calories Obesity classification: adult class 2 (BMI 35 - 39.9) Serious obesity comorbidity presence: without serious comorbidity Body mass index: BMI 37.0-37.9 Qualified Code(s): E66.09 - Other obesity due to excess calories; Z68.37 - Body mass index [BMI] 37.0-37.9, adult Plan: Healthy food choices and exercise as tolerated (5) Tobacco dependence: Code(s): F17.200 - Nicotine dependence, unspecified, uncomplicated Plan: Encouraged smoking cessation (6) OCD (obsessive compulsive disorder): Code(s): F42.9 - Obsessive-compulsive disorder, unspecified Plan: Continue to follow-up with Psychiatry Continue treatment as prescribed by Psychiatry (7) Adult general medical exam: Code(s): Z00.00 - Encounter for general adult medical examination without abnormal findings Plan Keep appointment with PCP as scheduled or follow-up sooner as needed Orders: Orders Lipid Panel Today Z00.00 - Encounter for general adult medical examination without abnormal findings TSH reflex Free T4 Today Z00.00 - Encounter for general adult medical examination without abnormal findings Vitamin D 25-OH Total Today Z00.00 - Encounter for general adult medical examination without abnormal findings Comprehensive Herman. Panel Fast Today Z00.00 - Encounter for general adult medical examination without abnormal findings TDaP Immunization Today Z23 - Encounter for immunization Referrals Podiatry Referral B35.1 - Tinea unguium Medications: New bismuth subsalicylate (Pepto-Bismol) 524 mg (30 mL) PO DAILY PRN 1,200 mL 0RF dyspepsia R10.13 - Epigastric pain mupirocin 2% 1 appl topical BID 7 days 15 grams 0RF L98.9 - Disorder of the skin and subcutaneous tissue, unspecified Coding Level of Care Code Est Pt Prev Care 40-64y(42123) Diagnoses Dyspepsia R10.13 Skin lesion L98.9 Toenail fungus B35.1 Obese E66.09; Z68.37 Obesity type: due to excess calories Obesity classification: adult class 2 (BMI 35 - 39.9) Serious obesity comorbidity presence: without serious comorbidity Body mass index: BMI 37.0-37.9 Tobacco dependence F17.200 OCD (obsessive compulsive disorder) F42.9 Adult general medical exam Z00.00
== END 2023-01-15 12:32 | disposition home or self-care (01) ==
PROVIDERS: Visit Provider Nurse Practitioner Family
DX: Z00.00 Encounter for general adult medical examination without abnormal findings (principal); Z68.37 Body mass index [BMI] 37.0-37.9, adult; F17.210 Nicotine dependence, cigarettes, uncomplicated; Z23 Encounter for immunization; R10.13 Epigastric pain; L98.9 Disorder of the skin and subcutaneous tissue, unspecified; B35.1 Tinea unguium; E66.09 Other obesity due to excess calories; F42.9 Obsessive-compulsive disorder, unspecified
CPT/HCPCS: 90471; 90715; 99396

== ENCOUNTER 2023-01-17 07:17 | Outpatient (REF) | payer OTHER, SELFPAY ==
[2023-01-17 08:07] LABS: Alanine Aminotransferase 18 U/L (0-40); Albumin Level 3.9 g/dL (3.5-5.0); Alkaline Phosphatase 69 U/L (39-117); Anion Gap 9 (12-20); Aspartate Amino Transferase 13 U/L (5-37); Bilirubin Total 0.4 mg/dL (0.0-1.0); Blood Urea Nitrogen 10 mg/dL (9-16); Calcium 9.5 mg/dL (8.4-10.2); Carbon Dioxide 33 mmol/L (22-29); Chloride 102 mmol/L (96-108); Cholesterol 214 mg/dL (<200); Estimated Glomerular Filt Rate > 60; Glucose Fasting 107 mg/dL (60-99); HDL Cholesterol 34 mg/dL (>40); LDL Cholesterol Calculated 130 mg/dL (<100); Potassium 4.2 mmol/L (3.3-5.1); Sodium 140 mmol/L (135-145); Triglycerides 252 mg/dL (<150)
[2023-01-17 08:22] LABS: Vitamin D 25-OH Total 51.2 ng/mL (>30)
== END 2023-01-17 07:18 | disposition home or self-care (01) ==
LOC: HO.LAB 07:17
PROVIDERS: PCP Physician Assistant; Visit Provider Nurse Practitioner Family
DX: Z00.00 Encounter for general adult medical examination without abnormal findings (principal); R73.02 Impaired glucose tolerance (oral); E78.00 Pure hypercholesterolemia, unspecified
CPT/HCPCS: 36415; 80053; 80061; 82306; 84443

== ENCOUNTER 2023-02-12 10:45 | Outpatient (AMB) | payer OTHER, SELFPAY ==
[2023-02-12 10:45] VITALS: BMI 38.3
--- NOTE | 2023-02-12 10:45 | MHC.PC.OV ---
Vital Signs 02/12/23 10:45 Height 6 ft Weight 282 lb 8 oz BMI 38.3 Intake Visit Reasons: 3mth f/u Intake Note: Pt is here for 3 month F/U and refuse to get vital done. 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 Required: No Accompanied by: Program- Allergies No Known Allergies Allergy (Verified 02/12/23 10:57) Medication List - Last Reconciled 02/12/23 by Cornel Chavez PA-C acetaminophen 325 mg PO ONCE PRN bismuth subsalicylate (Pepto-Bismol) 524 mg (30 mL) PO DAILY PRN diazepam 4 mg (2 x 2 mg) PO TID 30 days divalproex ER 2,000 mg (4 x 500 mg) PO BEDTIME 30 days fluoxetine 80 mg PO DAILY fluticasone propionate 50 mcg/actuation 1 spray intranasal BID PRN hydroxyzine HCl 25 mg PO TID lurasidone 120 mg PO DAILY melatonin 6 mg (2 x 3 mg) PO BEDTIME 90 days memantine 1 tab PO BID mupirocin 2% 1 appl topical BID 7 days risperidone 4 mg PO BID trazodone 150 mg PO BEDTIME vitamin E (dl, acetate) 180 mg PO DAILY 90 days Tobacco use date assessed: 01/15/23 Dental Screening Did you have a dental visit in the last 12 months?: No Did you have a dental problem in the last 6 months where you did not have access to dental care?: No Was dental information given to patient?: Patient declined HPI 3mth f/u HPI Details Patient is a 42 year male here today for follow up visit.? Patient has a past medical history significant for OCD, obesity alcohol syndrome, intermittent explosive disorder.? 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 Concern--> reports having some discomfort in his scrotum. Reports he has blue balls he denies having any rashes or issues with his skin in his groin or scrotum. He denies any urinary issues. Urinalysis today in office without any evidence of UTI. .. OCD/ intermittent explosive disorder: Continues to follow a psychiatrist. .. Obesity: Have noted elevations in his weight. Today's BMI is 38.3, may be attributed to his psychiatric medications and inactivity. .. Labs reviewed with patient and noted elevated triglycerides in borderline high total cholesterol Laboratory Tests 11/06/22 01/17/23 14:36 07:30 RBC 5.11 Creatinine 0.96 Fasting Glucose 107 H Triglycerides 252 H Cholesterol 214 H TSH 1.30 PFSH Medical History Anal fistula Bunion Jalyn onychomycosis COVID-19 alcohol syndrome Flat feet, bilateral Insomnia Obsessive compulsive disorder Rectal bleeding Screening for diabetes mellitus Screening for hyperlipidemia Surgical History No pertinent past surgical history Family History Mother No problems noted. Father No problems noted. Other Substance use disorder Social History Household Members: None Household Members Other:: assisted Housing: Other Housing Other:: [facility] Do you presently have visiting nurse or other home services: Yes Unable to assess alcohol history related to: Unknown Alcohol intake: never Patient Tobacco Use Status: Current someday Tobacco user Tobacco use type: Cigarette Cigarette Packs Per Day: 0.5 Cigarettes Per Day: 10.0 Years Smoked: 17 years old e-Cigarette/Vaping Use: Never Used Second Hand Smoke Exposure: Yes service: No Current occupational status: disabled Sexual orientation: Lesbian/Blackwell/Homosexual Cognitive needs: No Hearing needs: No Vision needs: No Questionnaire Thrive Questionnaire Date Thrive assessed: 07/05/22 SHRUTI-7 AMB Questionnaire SHRUTI-7 Date SHRUTI - 7 assessed: 09/10/22 Source: Developed by Drs. Antonio Hernandez, Nelida Catalan, Han Humphrey and colleagues, with an educational robbie from [employer]. Review of Systems Const Denies headache(s) Eyes Denies loss of vision ENT Denies vertigo, Denies dizziness, Denies headache(s) and Denies sore throat Card Denies chest pain, Denies leg edema and Denies lightheadedness Resp Denies cough, Denies hemoptysis and Denies wheezing GI Denies abdominal pain, Denies melena, Denies constipation, Denies diarrhea and Denies vomiting Denies dysuria, Denies urinary frequency and Denies urinary urgency Musc Denies arthralgias, Denies joint swelling, Denies numbness and Denies tingling Neuro Denies Abnormal speech present, Denies behavioral changes, Denies vertigo, Denies dizziness, Denies headache(s), Denies loss of vision, Denies memory loss, Denies numbness and Denies tingling Psych Denies anxiety, Denies behavioral changes, Denies depression, Denies memory loss and Denies panic attacks Bobby/Lymph Denies easy bleeding and Denies easy bruising Aller/Immun Denies wheezing Physical exam (Primary Care) BMI result Body Mass Index 38.3 BMI Assessment/Plan discussion: High Tobacco/Smoking Status: Tobacco use Status Tobacco use date assessed 01/15/23 02/12/23 10:45 Patient Tobacco Use Status Current someday Tobacco 02/12/23 10:45 Tobacco use type Cigarette 02/12/23 10:45 e-Cigarette/Vaping Use Never Used 02/12/23 10:45 Thrive Assessment: Date of Thrive Assessment Date Thrive assessed 07/05/22 02/12/23 10:45 Const Other: Obese General: no acute distress, alert and awake Nutritional Appearance: well nourished Orientation/consciousness: oriented to person, oriented to place and oriented to time HENMT Ears: TM's normal bilaterally General nose exam: Normal nasal mucous membranes and turbinates present Eyes Conjunctivae: conjunctivae normal Sclerae: sclerae normal Pupils: Equal, round and reactive pupils present Neck Neck: Yes no lymphadenopathy and Yes no JVD Thyroid: Thyroid normal Carotids: no bruits Resp Effort & Inspection: normal respiratory effort and not tachypneic Auscultation: no crackles, no rales, no rhonchi and no wheezes Cardio Rate: regular rate Rhythm: regular rhythm Heart sounds: no murmurs and normal S1 and S2 GI Palpation (GI): Soft to palpation, nontender, no hepatomegaly and no splenomegaly Auscultation: normal bowel sounds Skin General skin exam: no rashes or lesions noted and dry skin Neuro General: oriented to person, oriented to place and oriented to time Cranial nerves: Yes Equal, round and reactive pupils present Speech: No Abnormal speech present Gait exam (Neuro): Normal gait present Motor exam (neuro): no tremor noted Extrem Right upper extremity: full ROM Left upper extremity: full ROM Right lower extremity: full ROM; no edema Left lower extremity: full ROM; no edema Psych Mental Status: mental status grossly normal Speech and movement: Normal speech and movement present Affect: normal affect Attitude: cooperative Thought process: Normal thought process present Assessment and Plan Assessment & Plan (1) Obese: Code(s): E66.9 - Obesity, unspecified Qualifiers: Body mass index: BMI 37.0-37.9 Obesity classification: adult class 2 (BMI 35 - 39.9) Obesity type: due to excess calories Serious obesity comorbidity presence: without serious comorbidity Qualified Code(s): E66.09 - Other obesity due to excess calories; Z68.37 - Body mass index [BMI] 37.0-37.9, adult Plan: Healthy food choices and exercise as tolerated (2) Tobacco dependence: Code(s): F17.200 - Nicotine dependence, unspecified, uncomplicated Plan: Encouraged smoking cessation (3) OCD (obsessive compulsive disorder): Code(s): F42.9 - Obsessive-compulsive disorder, unspecified Qualifiers: Obsessive-compulsive disorder type: mixed obsessional thoughts and acts Qualified Code(s): F42.2 - Mixed obsessional thoughts and acts Plan: Continue to follow-up with Psychiatry Continue treatment as prescribed by Psychiatry (4) Borderline high cholesterol: Code(s): E78.9 - Disorder of lipoprotein metabolism, unspecified Plan: Most recent fasting lipid panel showing borderline high total cholesterol triglycerides. Likely secondary to his psychiatric medications and recent weight gain. Advised to exercise and watch diet. (5) Impaired glucose metabolism: Code(s): R73.09 - Other abnormal glucose Plan: Most recent fasting blood sugar slightly elevated at 107. Again advised on lifestyle modification (6) Dysuria: Code(s): R30.0 - Dysuria Plan: Reports some discomfort over his scrotum. Did not allow me to do physical exam today. Got urinalysis in office today without any evidence of infection. Otherwise gave reassurance Plan Keep appointment with PCP as scheduled or follow-up sooner as needed Coding Level of Care Code Est Pt Level 4 (68754) Diagnoses Class 2 obesity due to excess calories without serious comorbidity with body mass index (BMI) of 37.0 to 37.9 in adult E66.09; Z68.37 Body mass index: BMI 37.0-37.9 Obesity classification: adult class 2 (BMI 35 - 39.9) Obesity type: due to excess calories Serious obesity comorbidity presence: without serious comorbidity Tobacco dependence F17.200 Mixed obsessional thoughts and acts F42.2 Obsessive-compulsive disorder type: mixed obsessional thoughts and acts Borderline high cholesterol E78.9 Impaired glucose metabolism R73.09 Dysuria R30.0
== END 2023-02-12 17:45 | disposition home or self-care (01) ==
LOC: HO.HMGH 10:45
PROVIDERS: PCP Physician Assistant; Visit Provider Physician Assistant
DX: E66.09 Other obesity due to excess calories (principal); Z68.37 Body mass index [BMI] 37.0-37.9, adult; F17.200 Nicotine dependence, unspecified, uncomplicated; F42.2 Mixed obsessional thoughts and acts; E78.9 Disorder of lipoprotein metabolism, unspecified; R73.09 Other abnormal glucose; R30.0 Dysuria
CPT/HCPCS: 99214

== ENCOUNTER 2023-06-13 13:04 | Inpatient (IN) | payer OTHER, SELFPAY ==
--- NOTE | 2023-06-13 | ECG_ITS ---
Test Reason : qt interval Blood Pressure : / mmHG Vent. Rate : 076 BPM Atrial Rate : 076 BPM P-R Int : 172 ms QRS Dur : 102 ms QT Int : 400 ms P-R-T Axes : 054 057 048 degrees QTc Int : 450 ms Normal sinus rhythm Possible Left atrial enlargement Borderline ECG When compared with ECG of 08-OCT-2022 13:09, No significant change was found Referred By: Cee Peng Electronically Signed By:WINDY MELTON MD
[2023-06-13 13:08] VITALS: BP 0/0; PULSE 0; O2SAT 0
[2023-06-13 13:18] VITALS: BP 0/0; PULSE 0; RESP 0; TEMP -17.7; TEMP 0; O2SAT 0
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
[2023-06-13 14:12] VITALS: BP 154/95; PULSE 94; RESP 16; TEMP 36.7; O2SAT 98
[2023-06-13 15:20] LABS: Amphetamine Screen Urine Not Detected (Not Detect); Barbiturates, Urine Not Detected (Not Detect); Benzodiazepines Screen Urine POSITIVE (Not Detect); Cannabinoid Screen Urine Not Detected (Not Detect); Cocaine Screen Urine Not Detected (Not Detect); Fentanyl, urine Not Detected (Not Detect); Opiate Screen Urine Not Detected (Not Detect); Phencyclidine Screen Urine Not Detected (Not Detect)
[2023-06-13] MEDS: Mupirocin 2 % Oint 22 GM TUBE 1 APPL TOPICAL (15:34)
[2023-06-13] MEDS: Amoxicillin/Potassium Clav 875 MG TABLET PO (15:34)
[2023-06-13 15:45] LABS: MANUAL DIFF FLAG NO
[2023-06-13 15:49] LABS: Basophils Absolute Auto 0.1 X10*3/uL (0.0-0.2); Basophils Percent Auto 0.5 % (0-2); Eosinophils Absolute Auto 0.1 X10*3/uL (0.0-0.4); Hemoglobin 15.5 g/dl (14.0-18.0); Imm Gran Abs Auto 0.05 X10*3/uL (0.00-0.03); Imm Gran Pct Auto 0.4 % (0.0-0.4); Lymphocytes Absolute Auto 3.1 X10*3/uL (1.2-4.9); Lymphocytes Percent Auto 26.5 % (20-40); Mean Corpuscular HGB Conc 35.2 g/dl (31.0-36.0); Mean Corpuscular Volume 85.1 fL (80.0-98.0); Mean Platelet Volume 9.3 fL (9.4-12.4); Monocytes Absolute Auto 1.3 X10*3/uL (0.1-1.2); Monocytes Percent Auto 10.9 % (2-11); Neutrophils Absolute Auto 7.1 x10*3/uL (2.0-8.3); Neutrophils Percent Auto 60.7 % (45-73); Platelet Count 297 X10*3/uL (160-400); Red Blood Count 5.17 X10*6/uL (4.60-5.80); Red Cell Distribution Width 11.8 % (11.0-16.0); White Blood Count 11.6 X10*3/uL (4.8-10.8)
[2023-06-13 15:50] LABS: Appearance Urine Clear; Color Urine Yellow; Glucose Urine UA Negative (Negative); Leukocyte Esterase Urine Negative (Negative); Nitrite Urine Negative (Negative); PH 6.5 (5.0-9.0); Specific Gravity - Urine 1.015 (1.005-1.025); Urine Blood Negative (Negative); Urine Ketones Negative (Negative); Urine Protein Negative (Neg-Trace)
--- NOTE | 2023-06-13 15:50 | PHA.MEDREC ---
Pharmacy Consult ? Medication Reconciliation Pharmacy has reviewed the medication reconciliation completed by Bernice.
[2023-06-13 16:03] LABS: COVID-19 Test Negative (Negative); IDNOW Serial# 08D9AD1C
[2023-06-13 16:06] LABS: Alanine Aminotransferase 20 U/L (0-40); Albumin Level 4.4 g/dL (3.5-5.0); Alkaline Phosphatase 81 U/L (39-117); Anion Gap 12 (12-20); Aspartate Amino Transferase 15 U/L (5-37); Bilirubin Direct < 0.2 mg/dL (0.0-0.5); Bilirubin Total 0.2 mg/dL (0.0-1.0); Blood Urea Nitrogen 5 mg/dL (9-16); Calcium 10.1 mg/dL (8.4-10.2); Carbon Dioxide 30 mmol/L (22-29); Chloride 101 mmol/L (96-108); Estimated Glomerular Filt Rate > 60; Glucose Random 131 mg/dL (60-115); Potassium 3.8 mmol/L (3.3-5.1); Sodium 139 mmol/L (135-145)
[2023-06-13 16:07] LABS: Acetaminophen LAB < 3 mcg/mL (<30); Salicylate < 5.0 mg/dL (15-30)
[2023-06-13 16:08] LABS: IDNOW Serial# 152EDE1D; Influenza A Negative (Negative); Influenza B2 Negative (Negative)
[2023-06-13] MEDS: diazePAM 5 MG TABLET PO (16:16)
--- NOTE | 2023-06-13 19:19 | PC.NURSE ---
patient appears to be relaxed lounging ad pasquale in milieu, conversing with staff periodically and appears in good spirits, anticipates transfer to inpatient floor.
[2023-06-13] MEDS: Melatonin 3 MG TABLET 6 MG PO (20:16)
[2023-06-13] MEDS: risperiDONE 2 MG TABLET 4 MG PO (20:17)
[2023-06-13] MEDS: Memantine HCl 10 MG TABLET PO (20:17)
[2023-06-13] MEDS: Divalproex Sodium ER 500 MG TAB.ER.24H 2000 MG PO (20:17)
[2023-06-13] MEDS: hydrOXYzine HCL 50 MG TABLET PO (20:17)
[2023-06-13] MEDS: traZODone HCL 50 MG TABLET 150 MG PO (20:17)
[2023-06-13 20:27] LABS: Valproate 26.4 mcg/mL (50.0-100.0)
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
[2023-06-14] MEDS: FLUoxetine HCl 20 MG CAPSULE 80 MG PO (09:17)
[2023-06-14] MEDS: Amoxicillin/Potassium Clav 875 MG TABLET PO ×2 (09:17→20:21)
[2023-06-14] MEDS: Lurasidone HCl 40 MG TABLET 120 MG PO (09:18)
[2023-06-14] MEDS: risperiDONE 2 MG TABLET 4 MG PO ×2 (09:19→20:21)
[2023-06-14] MEDS: Vitamin E (Dl,Tocopheryl Acet) 180 MG (400 UNIT) CAPSULE PO (09:19)
[2023-06-14] MEDS: Memantine HCl 10 MG TABLET PO ×2 (09:24→20:20)
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
[2023-06-14] MEDS: hydrOXYzine HCL 50 MG TABLET PO (20:20)
[2023-06-14] MEDS: Divalproex Sodium ER 500 MG TAB.ER.24H 2000 MG PO (20:20)
[2023-06-14] MEDS: traZODone HCL 50 MG TABLET 150 MG PO (20:20)
[2023-06-14] MEDS: Melatonin 3 MG TABLET 6 MG PO (20:20)
[2023-06-14 20:30] VITALS: BP 133/79; PULSE 80; RESP 16; TEMP 36.6
[2023-06-15] MEDS: Vitamin E (Dl,Tocopheryl Acet) 180 MG (400 UNIT) CAPSULE PO (08:43)
[2023-06-15] MEDS: risperiDONE 2 MG TABLET 4 MG PO ×2 (08:43→20:16)
[2023-06-15] MEDS: Lurasidone HCl 40 MG TABLET 120 MG PO (08:44)
[2023-06-15] MEDS: FLUoxetine HCl 20 MG CAPSULE 80 MG PO (08:45)
[2023-06-15] MEDS: Amoxicillin/Potassium Clav 875 MG TABLET PO ×2 (08:45→20:17)
[2023-06-15] MEDS: Memantine HCl 10 MG TABLET PO ×2 (08:45→20:17)
[2023-06-15] MEDS: diazePAM 5 MG TABLET PO ×3 (08:45→20:17)
[2023-06-15] MEDS: Bacitracin Oint 14 GM TUBE 1 APPL TOPICAL ×2 (10:14→20:16)
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
[2023-06-15] MEDS: Divalproex Sodium ER 500 MG TAB.ER.24H 2000 MG PO (20:16)
[2023-06-15] MEDS: hydrOXYzine HCL 50 MG TABLET PO (20:16)
[2023-06-15] MEDS: Melatonin 3 MG TABLET 6 MG PO (20:17)
[2023-06-15] MEDS: traZODone HCL 50 MG TABLET 150 MG PO (20:17)
[2023-06-15 20:31] VITALS: RESP 14
[2023-06-16] MEDS: Lurasidone HCl 40 MG TABLET 120 MG PO (09:14)
[2023-06-16] MEDS: Vitamin E (Dl,Tocopheryl Acet) 180 MG (400 UNIT) CAPSULE PO (09:14)
[2023-06-16] MEDS: FLUoxetine HCl 20 MG CAPSULE 80 MG PO (09:15)
[2023-06-16] MEDS: risperiDONE 2 MG TABLET 4 MG PO ×2 (09:15→20:36)
[2023-06-16] MEDS: Memantine HCl 10 MG TABLET PO ×2 (09:15→20:38)
[2023-06-16] MEDS: diazePAM 5 MG TABLET PO ×3 (09:15→20:37)
[2023-06-16] MEDS: Amoxicillin/Potassium Clav 875 MG TABLET PO ×2 (09:15→20:36)
[2023-06-16] MEDS: Bacitracin Oint 14 GM TUBE 1 APPL TOPICAL ×2 (09:34→20:37)
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
[2023-06-16 18:00] VITALS: BP 126/76; PULSE 70; RESP 18; TEMP 36.6; O2SAT 95
[2023-06-16] MEDS: hydrOXYzine HCL 50 MG TABLET PO (20:36)
[2023-06-16] MEDS: Divalproex Sodium ER 500 MG TAB.ER.24H 2000 MG PO (20:36)
[2023-06-16] MEDS: Melatonin 3 MG TABLET 6 MG PO (20:36)
[2023-06-16] MEDS: traZODone HCL 50 MG TABLET 150 MG PO (20:38)
[2023-06-17] MEDS: Lurasidone HCl 40 MG TABLET 120 MG PO (09:11)
[2023-06-17] MEDS: risperiDONE 2 MG TABLET 4 MG PO ×2 (09:11→20:27)
[2023-06-17] MEDS: FLUoxetine HCl 20 MG CAPSULE 80 MG PO (09:12)
[2023-06-17] MEDS: Vitamin E (Dl,Tocopheryl Acet) 180 MG (400 UNIT) CAPSULE PO (09:13)
[2023-06-17] MEDS: diazePAM 5 MG TABLET PO ×3 (09:13→20:27)
[2023-06-17] MEDS: Memantine HCl 10 MG TABLET PO ×2 (09:13→20:27)
[2023-06-17] MEDS: Amoxicillin/Potassium Clav 875 MG TABLET PO ×2 (09:13→20:27)
[2023-06-17] MEDS: Bacitracin Oint 14 GM TUBE 1 APPL TOPICAL ×2 (10:21→20:58)
--- NOTE | 2023-06-17 14:55 | P.PNPSI_ITS ---
Subjective Subjective Date of Service: 06/17/23 Reason For Visit: PICKING AT FACE Interim History: calm, cooperative, pleasant. interested in discharge. safe, no complaints or requests. per staff, attending groups. visible. disheveled. no issues. needing some limit setting and redirection. Mental Status Exam Mental Status Exam Narrative: A&O. adequately dressed and groomed.? good eye contact, attentive. No Tics or Tremors.? cooperative.? speech incr rate, nml amount.? No prolonged speech latency or dysarthria.? word-finding difficulties due to expressive aphasia.? affect is normo-intense, non-labile.? mood joyful. no SI/HI/AVH.? Insight/ Judgment limited. OCD, i.e. spitting into his shirt repetitively, poor physical boundaries. Diagnostics Vital Signs (24Hr): Vital Signs - 24 hr 06/16/23 18:00 Temperature 97.8 F Pulse Rate 70 Respiratory Rate 18 Blood Pressure 126/76 Pulse Oximetry 95 BMI result Body Mass Index 0.0 Labs 06/13/23 15:40 06/13/23 15:40 Medications Medications Current Medications Acetaminophen (Acetaminophen 325 Mg Tablet) 650 mg PO Q6H PRN PRN Reason: Headache/Pain Mild Scale (1-3) Al Hydroxide/Mg Hydroxide (Magnesium Hydrox/Alum Hydrox 30 Ml Oral.Susp) 30 ml PO Q6H PRN PRN Reason: Heartburn/Nausea Amoxicillin/Clavulanate Potassium (Amoxicillin/Potassium Clav 875 Mg Tablet) 875 mg PO BID [facility] Stop: 06/20/23 08:59 Last Admin: 06/17/23 09:13 Dose: 875 mg Bacitracin (Bacitracin Oint 14 Gm Tube) 1 appl TOPICAL BID [facility]; Protocol Last Admin: 06/17/23 10:21 Dose: 1 appl Benzonatate (Benzonatate 100 Mg Capsule) 100 mg PO TID PRN PRN Reason: Cough Diazepam (Diazepam 5 Mg Tablet) 5 mg PO TID [facility] Last Admin: 06/17/23 09:13 Dose: 5 mg Divalproex Sodium (Divalproex Sodium Er 500 Mg Tab.Er.24h) 2,000 mg PO BEDTIME [facility] Last Admin: 06/16/23 20:36 Dose: 2,000 mg Fluoxetine HCl (Fluoxetine Hcl 20 Mg Capsule) 100 mg PO DAILY [facility] Fluticasone Propionate (Fluticasone Propionate Nasal 16 Gm [place]) 1 spray NOSTRIL-B DAILY PRN PRN Reason: sinus congestion Hydroxyzine HCl (Hydroxyzine Hcl 50 Mg Tablet) 50 mg PO BEDTIME [facility] Last Admin: 06/16/23 20:36 Dose: 50 mg Hydroxyzine HCl (Hydroxyzine Hcl 25 Mg Tablet) 25 mg PO Q6H PRN PRN Reason: Anxiety Lurasidone HCl (Lurasidone Hcl 40 Mg Tablet) 120 mg PO DAILY [facility] Last Admin: 06/17/23 09:11 Dose: 120 mg Magnesium Hydroxide (Milk Of Magnesia 30 Ml Oral.Susp) 30 ml PO DAILY PRN PRN Reason: Constipation Melatonin (Melatonin 3 Mg Tablet) 6 mg PO BEDTIME [facility] Last Admin: 06/16/23 20:36 Dose: 6 mg Memantine (Memantine Hcl 10 Mg Tablet) 10 mg PO BID [facility] Last Admin: 06/17/23 09:13 Dose: 10 mg Nicotine Polacrilex (Nicotine Polacrilex 2 Mg Gum) 4 mg BUCCAL Q2H PRN PRN Reason: Nicotine Cravings Non-Formulary Medication (Methylphenidate Hcl) 27 mg PO DAILY [facility] Risperidone (Risperidone 2 Mg Tablet) 4 mg PO BID [facility] Last Admin: 06/17/23 09:11 Dose: 4 mg Trazodone HCl (Trazodone Hcl 50 Mg Tablet) 150 mg PO BEDTIME [facility] Last Admin: 06/16/23 20:38 Dose: 150 mg Trazodone HCl (Trazodone Hcl 50 Mg Tablet) 50 mg PO BEDTIME MRX1 PRN PRN Reason: Insomnia Vitamin E (Vitamin E (Dl,Tocopheryl Acet) 180 Mg (400 Unit) Capsule) 180 mg PO DAILY [facility] Last Admin: 06/17/23 09:13 Dose: 180 mg Allergies Allergies Allergy/AdvReac Type Severity Reaction Status Date / Time escitalopram [From Lexapro] AdvReac Agitated Verified 06/13/23 16:05 Assessment & Plan Assessment & Plan (1) Anxiety: Status: Acute Code(s): F41.9 - Anxiety disorder, unspecified (2) OCD (obsessive compulsive disorder): Qualifiers: Obsessive-compulsive disorder type: mixed obsessional thoughts and acts Qualified Code(s): F42.2 - Mixed obsessional thoughts and acts Status: Acute Code(s): F42.9 - Obsessive-compulsive disorder, unspecified (3) Intermittent explosive disorder in adult: Status: Acute Code(s): F63.81 - Intermittent explosive disorder (4) Expressive language impairment: Status: Acute Code(s): F80.1 - Expressive language disorder Plan 2: continue outpt regimen. 06/15: continue outpt regimen. contact intermediate tomorrow and discuss terms of discharge. 06/16: continue current mgmt. MARLA Jody has been in touch with intermediate, they are likely to accept pt back in several more days contingent upon pt stability. 06/17: calm, cooperative. meds reviewed, reconciled, prescribed. planning for discharge tomorrow. Reason for continued inpatient stay Substantial Risk for: inability to function and rapid decompensation Time Spent With Patient Time: Total time managing care of this patient today __25__ minutes.
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
[2023-06-17 18:00] VITALS: RESP 18
[2023-06-17] MEDS: traZODone HCL 50 MG TABLET 150 MG PO (20:25)
[2023-06-17] MEDS: Melatonin 3 MG TABLET 6 MG PO (20:25)
[2023-06-17] MEDS: hydrOXYzine HCL 50 MG TABLET PO (20:27)
[2023-06-17] MEDS: Divalproex Sodium ER 500 MG TAB.ER.24H 2000 MG PO (20:27)
[2023-06-18] MEDS: Bacitracin Oint 14 GM TUBE 1 APPL TOPICAL (09:09)
[2023-06-18] MEDS: FLUoxetine HCl 20 MG CAPSULE 100 MG PO (09:09)
[2023-06-18] MEDS: Amoxicillin/Potassium Clav 875 MG TABLET PO (09:10)
[2023-06-18] MEDS: diazePAM 5 MG TABLET PO ×2 (09:10→14:38)
[2023-06-18] MEDS: Vitamin E (Dl,Tocopheryl Acet) 180 MG (400 UNIT) CAPSULE PO (09:10)
[2023-06-18] MEDS: Lurasidone HCl 40 MG TABLET 120 MG PO (09:10)
[2023-06-18] MEDS: Memantine HCl 10 MG TABLET PO (09:11)
[2023-06-18] MEDS: risperiDONE 2 MG TABLET 4 MG PO (09:11)
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
== END 2023-06-18 16:35 | disposition home or self-care (01) | DRG 883 ==
LOC: HO.ED 15:19 → HO.PADLT16 17:45
PROVIDERS: Physician Assistant; Admitting Provider Psychiatry & Neurology Psychiatry; Emergency Provider Emergency Medicine Emergency Medical Services; PCP Physician Assistant; Visit Provider Psychiatry & Neurology Psychiatry
DX: F63.81 Intermittent explosive disorder (principal); Q86.0 Fetal alcohol syndrome (dysmorphic); F42.2 Mixed obsessional thoughts and acts; F17.210 Nicotine dependence, cigarettes, uncomplicated; F80.1 Expressive language disorder; Z20.822 Contact with and (suspected) exposure to COVID-19; Z71.6 Tobacco abuse counseling; Z79.899 Other long term (current) drug therapy
CPT/HCPCS: 36415; 80048; 80076; 80143; 80164; 80179; 80307; 81003; 85025; 87502; 87635; 93005; 99285

== ENCOUNTER → 2023-06-13 17:06 | Outpatient (BNV) | payer OTHER, SELFPAY | PROVIDERS: Admitting Provider Psychiatry & Neurology Psychiatry; Emergency Provider Emergency Medicine Emergency Medical Services; PCP Physician Assistant; Visit Provider Internal Medicine Cardiovascular Disease | DX: F42.9 Obsessive-compulsive disorder, unspecified (principal); F42.4 Excoriation (skin-picking) disorder | CPT/HCPCS: 93010 ==

== ENCOUNTER → 2023-06-13 17:31 | Outpatient (BNV) | payer OTHER, SELFPAY | PROVIDERS: Admitting Provider Psychiatry & Neurology Psychiatry; Emergency Provider Emergency Medicine Emergency Medical Services; PCP Physician Assistant; Visit Provider Psychiatry & Neurology Psychiatry | DX: F41.9 Anxiety disorder, unspecified (principal); F42.2 Mixed obsessional thoughts and acts; F63.81 Intermittent explosive disorder; F80.1 Expressive language disorder | CPT/HCPCS: 90792; 99231; 99232; 99239 ==

== ENCOUNTER 2023-06-23 14:05 | Outpatient (AMB) | payer OTHER, SELFPAY ==
[2023-06-23 14:06] VITALS: BP 110/80; BMI 38.7
--- NOTE | 2023-06-23 14:06 | MHC.PC.OV ---
Vital Signs 06/23/23 14:06 Height 6 ft Weight 285 lb 6 oz BMI 38.7 BP 110/80 Blood Pressure Location Lt brachial Position Sitting Pulse Source Pulse Oximeter Oxygen Delivery Method Room Air Intake Visit Reasons: HDF 06/18/23 Intake Note: Patient is here for hospital discharge follow up from [facility] due to aggression towards home care staff and face picking 06/18/23. 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 Accompanied by: Shadi-Program Allergies escitalopram [From [employer]] Adverse Reaction (Verified 06/23/23 14:19) Agitated Medication List - Last Reconciled 06/23/23 by Cornel Chavez PA-C amoxicillin-pot clavulanate 875-125 mg 1 tab PO BID 7 days bacitracin 1 appl See Protocol topical QID 7 days diazepam 5 mg PO TID PRN divalproex ER 2,000 mg (4 x 500 mg) PO BEDTIME 30 days fluoxetine 100 mg (5 x 20 mg) PO DAILY 30 days hydroxyzine HCl 50 mg PO BEDTIME lurasidone 120 mg PO DAILY melatonin 6 mg (2 x 3 mg) PO BEDTIME 90 days memantine 1 tab PO BID risperidone 4 mg PO BID trazodone 150 mg PO BEDTIME vitamin E (dl, acetate) 180 mg PO DAILY 90 days Tobacco use date assessed: 01/15/23 HPI HDF 06/18/23 HPI Details Patient is a 43 year male here today for hospital discharge follow-up. Was recently seen at [facility] [place] for acute increase in anxiety and skin picking disorder. He was found to have cellulitis and was started on antibiotic. He is concerned about ingrown hairs on his face. Does have folliculitis over his back. He admit to some issues with his hygiene and now trying to shower more often. He is interested in seeing a newspaper writer. There is some concern about a psychiatric component to his skin manifestations as he is often picking at his skin. [facility] Medical History Flat feet, bilateral Insomnia COVID-19 alcohol syndrome Anal fistula Jalyn onychomycosis Screening for hyperlipidemia Screening for diabetes mellitus Bunion Obsessive compulsive disorder Rectal bleeding Surgical History No pertinent past surgical history Family History Mother No problems noted. Father No problems noted. Other Substance use disorder Social History Household Members: Other Household Members Other:: jail Housing: Other Housing Other:: Correction Do you presently have visiting nurse or other home services: Yes Unable to assess alcohol history related to: Unknown Alcohol intake: never Comment: Refuses to wear red socks stating he does not have seizure d/o Patient Tobacco Use Status: Never used Tobacco Tobacco use type: Cigarette Cigarette Packs Per Day: 0.5 Cigarettes Per Day: 10.0 Years Smoked: 17 years old e-Cigarette/Vaping Use: Never Used Second Hand Smoke Exposure: Yes service: No Current occupational status: disabled Sexual orientation: Lesbian/Blackwell/Homosexual Cognitive needs: No Hearing needs: No Vision needs: No Questionnaire PHQ-9 Over the last 2 weeks, how often have you been bothered by any of the following problems? 1. Little interest or pleasure in doing things: not at all 2. Feeling down, depressed, or hopeless: not at all 3. Trouble falling or staying asleep, or sleeping too much: not at all 4. Feeling tired or having little energy: not at all 5. Poor appetite or overeating: not at all 6. Feeling bad about yourself - or that you are a failure or have let yourself or your family down: not at all 7. Trouble concentrating on things, such as reading the newspaper or watching television: not at all 8. Moving or speaking so slowly that other people could have noticed. Or the opposite - being so fidgety or restless that you have been moving around a lot more than usual: not at all 9. Thoughts that you would be better off or of hurting yourself in some way: not at all Total score: 0 Depression Screening Interpretation: Negative (current Rx helping) Depression Screening Done: Yes 24698 - PHQ-9 Billing: Yes Source: Developed by Drs. Antonio Hernandez, Nelida Catalan, Han Humphrey and colleagues, with an educational robbie from [employer]. Thrive Questionnaire Date Thrive assessed: 06/16/23 AUDIT C Alcohol Use Questionnaire (AUDIT-C) 1. How often do you have a drink containing alcohol?: Never 3. How often do you have six or more drinks on one occasion?: Never Total Score: 0 Score Reviewed/Action Taken: No SHRUTI-7 AMB Questionnaire SHRUTI-7 Date SHRUTI - 7 assessed: 09/10/22 Feeling nervous, anxious, or on edge: 0 = Not at all Not being able to stop or control worryin = Not at all Worrying too much about different things: 0 = Not at all Trouble relaxin = Not at all Being so restless that it is hard to sit still: 0 = Not at all Becoming easily annoyed or irritable: 0 = Not at all Feeling afraid as if something awful might happen: 0 = Not at all Total SHRUTI-7 score (0-4 normal; 5-9 mild; 10-14 moderate; 15-21 severe): 0 Source: Developed by Drs. Antonio Hernandez, Nelida Catalan, Han Humphrey and colleagues, with an educational robbie from [employer]. SHRUTI-7 Assessment Billing SHRUTI-7 Assessment Tool: SHRUTI-7 Assessment 26380 (On treatment.) Review of Systems Const Denies headache(s) Eyes Denies loss of vision ENT Denies vertigo, Denies dizziness, Denies headache(s) and Denies sore throat Card Denies chest pain, Denies leg edema and Denies lightheadedness Resp Denies cough, Denies hemoptysis and Denies wheezing GI Denies abdominal pain, Denies melena, Denies constipation, Denies diarrhea and Denies vomiting Denies dysuria, Denies urinary frequency and Denies urinary urgency Musc Denies arthralgias, Denies joint swelling, Denies numbness and Denies tingling Neuro Denies Abnormal speech present, Denies behavioral changes, Denies vertigo, Denies dizziness, Denies headache(s), Denies loss of vision, Denies memory loss, Denies numbness and Denies tingling Psych Denies anxiety, Denies behavioral changes, Denies depression, Denies memory loss and Denies panic attacks Bobby/Lymph Denies easy bleeding and Denies easy bruising Aller/Immun Denies wheezing Physical exam (Primary Care) Vital Signs: Last Vital Signs BP 110/80 06/23/23 14:06 Oxygen Delivery Method Room Air 06/23/23 14:06 BMI result Body Mass Index 38.7 Tobacco/Smoking Status: Tobacco use Status Tobacco use date assessed 01/15/23 06/23/23 14:08 Patient Tobacco Use Status Never used Tobacco 06/23/23 14:08 Tobacco use type Cigarette 06/23/23 14:08 e-Cigarette/Vaping Use Never Used 06/23/23 14:08 PHQ-9: PHQ-9 Score PHQ-9: Total score 0 06/23/23 14:18 Depression Screening Interpretation: Negative (current Rx helping) Thrive Assessment: Date of Thrive Assessment Date Thrive assessed 06/16/23 06/23/23 14:08 Const General: healthy appearing, no acute distress, alert and awake Nutritional Appearance: well nourished Orientation/consciousness: oriented to person, oriented to place and oriented to time HENMT Ears: TM's normal bilaterally General nose exam: Normal nasal mucous membranes and turbinates present Face images: 1. LOSS OF HAIR AND SKIN ULCERATION OVER THE LEFT SIDE OF HIS CHEEK, NO SURROUNDING ERYTHEMA OR PURULENT DRAINAGE Eyes Conjunctivae: conjunctivae normal Sclerae: sclerae normal Pupils: Equal, round and reactive pupils present Neck Neck: Yes no lymphadenopathy and Yes no JVD Thyroid: Thyroid normal Carotids: no bruits Resp Effort & Inspection: normal respiratory effort and not tachypneic Auscultation: no crackles, no rales, no rhonchi and no wheezes Cardio Rate: regular rate Rhythm: regular rhythm Heart sounds: no murmurs and normal S1 and S2 GI Palpation (GI): Soft to palpation, nontender, no hepatomegaly and no splenomegaly Auscultation: normal bowel sounds Skin Other: MULTIPLE SKIN LESIONS OVER HIS UPPER BACK WITH THE APPEARANCE FOLLICULITIS General skin exam: no rashes or lesions noted and dry skin Neuro General: oriented to person, oriented to place and oriented to time Cranial nerves: Yes Equal, round and reactive pupils present Speech: No Abnormal speech present Gait exam (Neuro): Normal gait present Motor exam (neuro): no tremor noted Extrem Right upper extremity: full ROM Left upper extremity: full ROM Right lower extremity: full ROM; no edema Left lower extremity: full ROM; no edema Psych Mental Status: mental status grossly normal Speech and movement: Normal speech and movement present Affect: normal affect Attitude: cooperative Thought process: Normal thought process present Assessment and Plan Assessment & Plan (1) Folliculitis: Code(s): L73.9 - Follicular disorder, unspecified Plan: Has appearance of late colitis over his back. Advised on showering daily. He adamantly wants to see a newspaper writer (2) Skin-picking disorder: Code(s): F42.4 - Excoriation (skin-picking) disorder (3) Cellulitis: Code(s): L03.90 - Cellulitis, unspecified Qualifiers: Site of cellulitis: trunk Site of cellulitis of trunk: back Qualified Code(s): L03.312 - Cellulitis of back [any part except buttock] Plan: Seems his cellulitis is clearing up. Will continue the rest of the course of antibiotic. Advised on continuing his triple antibiotic ointment as well. Coding Level of Care Code Est Pt Level 3 (14272) Diagnoses Folliculitis L73.9 Skin-picking disorder F42.4 Cellulitis of back except buttock L03.312 Site of cellulitis: trunk Site of cellulitis of trunk: back Additional Codes SHRUTI-7 Assessment Billing - SHRUTI-7 Assessment Tool: SHRUTI-7 Assessment 57510 ([id number])
== END 2023-06-23 14:44 | disposition home or self-care (01) ==
PROVIDERS: PCP Physician Assistant; Visit Provider Physician Assistant
DX: L73.9 Follicular disorder, unspecified (principal); F42.4 Excoriation (skin-picking) disorder; L03.312 Cellulitis of back [any part except buttock and flank]
CPT/HCPCS: 99213

== ENCOUNTER 2023-11-04 10:31 | Outpatient (AMB) | payer OTHER, SELFPAY ==
--- NOTE | 2023-11-04 10:48 | MHC.PC.OV ---
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 Required: No Accompanied by: program Allergies escitalopram [From Lexapro] Adverse Reaction (Verified 11/04/23 11:04) Agitated Medication List - Last Reconciled 11/04/23 by Cornel Chavez PA-C acetaminophen 325 mg PO Q6H PRN 30 days bacitracin 1 appl See Protocol topical QID 7 days bismuth subsalicylate 524 mg (30 mL) PO QID PRN 30 days diazepam 5 mg PO TID PRN divalproex ER 2,000 mg (4 x 500 mg) PO BEDTIME 30 days fluoxetine 100 mg (5 x 20 mg) PO DAILY 30 days fluticasone propionate 50 mcg/actuation (Flonase Allergy Relief) 1 spray intranasal BID PRN 30 days hydroxyzine HCl 50 mg PO BEDTIME lurasidone 120 mg PO DAILY melatonin 6 mg (2 x 3 mg) PO BEDTIME 90 days memantine 1 tab PO BID risperidone 4 mg PO BID trazodone 150 mg PO BEDTIME vitamin E (dl, acetate) 180 mg PO DAILY 90 days Tobacco use date assessed: 11/04/23 Dental Screening Dental Screen Date: 11/04/23 Did you have a dental visit in the last 12 months?: Yes Did you have a dental problem in the last 6 months where you did not have access to dental care?: No Was dental information given to patient?: Patient has dentist HPI 3 month f/u HPI Details Patient is a 43 year male here today for follow up visit.? Patient has a past medical history significant for OCD, obesity alcohol syndrome, borderline high cholesterol intermittent explosive disorder.? 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 .. OCD/ intermittent explosive disorder: Continues to follow a psychiatrist. Continues to have some skin picking behaviors especially on his face. Will supply patient with bacitracin to use on skin lesions for .. Obesity: Have noted elevations in his weight. Today's BMI is 38.3, may be attributed to his psychiatric medications and inactivity. [facility] Medical History Cellulitis Flat feet, bilateral Insomnia COVID-19 alcohol syndrome Anal fistula Jalyn onychomycosis Screening for hyperlipidemia Screening for diabetes mellitus Bunion Obsessive compulsive disorder Rectal bleeding Surgical History No pertinent past surgical history Family History Mother No problems noted. Father No problems noted. Other Substance use disorder Social History Household Members: Other Household Members Other:: shelter Housing: Other Housing Other:: Halfway Do you presently have visiting nurse or other home services: Yes Unable to assess alcohol history related to: Unknown Alcohol intake: never Comment: Refuses to wear red socks stating he does not have seizure d/o Patient Tobacco Use Status: Never used Tobacco Tobacco use type: Cigarette Cigarette Packs Per Day: 0.5 Cigarettes Per Day: 10.0 Years Smoked: 17 years old e-Cigarette/Vaping Use: Never Used Second Hand Smoke Exposure: Yes service: No Current occupational status: disabled Sexual orientation: Lesbian/Blackwell/Homosexual Cognitive needs: No Hearing needs: No Vision needs: No Questionnaire Thrive Questionnaire Date Thrive assessed: 06/16/23 SHRUTI-7 AMB Questionnaire SHRUTI-7 Date SHRUTI - 7 assessed: 09/10/22 Source: Developed by Drs. Antonio Hernandez, Nelida Catalan, Han Humphrey and colleagues, with an educational robbie from [employer]. Review of Systems Const Denies headache(s) Eyes Denies loss of vision ENT Denies vertigo, Denies dizziness, Denies headache(s) and Denies sore throat Card Denies chest pain, Denies leg edema and Denies lightheadedness Resp Denies cough, Denies hemoptysis and Denies wheezing GI Denies abdominal pain, Denies melena, Denies constipation, Denies diarrhea and Denies vomiting Denies dysuria, Denies urinary frequency and Denies urinary urgency Musc Denies arthralgias, Denies joint swelling, Denies numbness and Denies tingling Neuro Denies Abnormal speech present, Denies behavioral changes, Denies vertigo, Denies dizziness, Denies headache(s), Denies loss of vision, Denies memory loss, Denies numbness and Denies tingling Psych Denies anxiety, Denies behavioral changes, Denies depression, Denies memory loss and Denies panic attacks Bobby/Lymph Denies easy bleeding and Denies easy bruising Aller/Immun Denies wheezing Physical exam (Primary Care) BMI result Body Mass Index 38.8 BMI Assessment/Plan discussion: High BMI High, discussed plan: lifestyle, weight reduction and dietary Tobacco/Smoking Status: Tobacco use Status Tobacco use date assessed 11/04/23 11/04/23 10:54 Patient Tobacco Use Status Never used Tobacco 11/04/23 10:54 Tobacco use type Cigarette 11/04/23 10:54 e-Cigarette/Vaping Use Never Used 11/04/23 10:54 Are you ready to quit: No Tobacco cessation counseling provided: Yes Relapse Prevention: discussed the importance of a supportive environment, discussed negative mood or depression after quitting, weight gain after smoking is common and discussed dietary, exercise and/or lifestyle changes Number of minutes spent counselin CPT code: 59609 - 4-10 Minutes Thrive Assessment: Date of Thrive Assessment Date Thrive assessed 06/16/23 11/04/23 10:54 Const General: healthy appearing, no acute distress, alert and awake Nutritional Appearance: well nourished Orientation/consciousness: oriented to person, oriented to place and oriented to time HENMT Ears: TM's normal bilaterally General nose exam: Normal nasal mucous membranes and turbinates present Eyes Conjunctivae: conjunctivae normal Sclerae: sclerae normal Pupils: Equal, round and reactive pupils present Neck Neck: Yes no lymphadenopathy and Yes no JVD Thyroid: Thyroid normal Carotids: no bruits Resp Effort & Inspection: normal respiratory effort and not tachypneic Auscultation: no crackles, no rales, no rhonchi and no wheezes Cardio Rate: regular rate Rhythm: regular rhythm Heart sounds: no murmurs and normal S1 and S2 GI Palpation (GI): Soft to palpation, nontender, no hepatomegaly and no splenomegaly Auscultation: normal bowel sounds Skin General skin exam: no rashes or lesions noted and dry skin Neuro General: oriented to person, oriented to place and oriented to time Cranial nerves: Yes Equal, round and reactive pupils present Speech: No Abnormal speech present Gait exam (Neuro): Normal gait present Motor exam (neuro): no tremor noted Extrem Right upper extremity: full ROM Left upper extremity: full ROM Right lower extremity: full ROM; no edema Left lower extremity: full ROM; no edema Psych Mental Status: mental status grossly normal Speech and movement: Normal speech and movement present Affect: normal affect Attitude: cooperative Thought process: Normal thought process present Assessment and Plan Assessment & Plan (1) Tobacco dependence: Code(s): F17.200 - Nicotine dependence, unspecified, uncomplicated Plan: Encouraged smoking cessation (2) Obese: Code(s): E66.9 - Obesity, unspecified Qualifiers: Body mass index: BMI 37.0-37.9 Obesity classification: adult class 2 (BMI 35 - 39.9) Obesity type: due to excess calories Serious obesity comorbidity presence: without serious comorbidity Qualified Code(s): E66.09 - Other obesity due to excess calories; Z68.37 - Body mass index [BMI] 37.0-37.9, adult Plan: Healthy food choices and exercise as tolerated (3) OCD (obsessive compulsive disorder): Code(s): F42.9 - Obsessive-compulsive disorder, unspecified Qualifiers: Obsessive-compulsive disorder type: mixed obsessional thoughts and acts Qualified Code(s): F42.2 - Mixed obsessional thoughts and acts Plan: Continue to follow-up with Psychiatry Continue treatment as prescribed by Psychiatry (4) Borderline high cholesterol: Code(s): E78.9 - Disorder of lipoprotein metabolism, unspecified Plan: Most recent fasting lipid panel showing borderline high total cholesterol triglycerides. Likely secondary to his psychiatric medications and recent weight gain. Advised to exercise and watch diet. (5) Impaired glucose metabolism: Code(s): R73.09 - Other abnormal glucose Plan: Most recent fasting blood sugar slightly elevated at 107. Again advised on lifestyle modification Orders: Orders Lipid Panel 11/04/23 E78.9 - Disorder of lipoprotein metabolism, unspecified Comprehensive [place]. Panel Fast 11/04/23 R73.01 - Impaired fasting glucose Hemoglobin A1c 11/04/23 R73.01 - Impaired fasting glucose Medications: Refilled bacitracin 1 appl See Protocol topical QID 14 grams 0RF 7 days Coding Level of Care Code Est Pt Level 4 (98782) Diagnoses Tobacco dependence F17.200 Class 2 obesity due to excess calories without serious comorbidity with body mass index (BMI) of 37.0 to 37.9 in adult E66.09; Z68.37 Body mass index: BMI 37.0-37.9 Obesity classification: adult class 2 (BMI 35 - 39.9) Obesity type: due to excess calories Serious obesity comorbidity presence: without serious comorbidity Mixed obsessional thoughts and acts F42.2 Obsessive-compulsive disorder type: mixed obsessional thoughts and acts Borderline high cholesterol E78.9 Impaired glucose metabolism R73.09 Additional Codes Vital Signs *Quality* - CPT code: 73197 - 4-10 Minutes ([id number])
[2023-11-04 10:49] VITALS: BMI 38.8
== END 2023-11-04 11:22 | disposition home or self-care (01) ==
PROVIDERS: PCP Physician Assistant; Visit Provider Physician Assistant
DX: F17.200 Nicotine dependence, unspecified, uncomplicated (principal); E66.09 Other obesity due to excess calories; Z68.37 Body mass index [BMI] 37.0-37.9, adult; F42.2 Mixed obsessional thoughts and acts; E78.9 Disorder of lipoprotein metabolism, unspecified; R73.09 Other abnormal glucose
CPT/HCPCS: 99214; 99406

== ENCOUNTER 2024-01-05 11:55 | Outpatient (AMB) | payer OTHER, SELFPAY ==
--- NOTE | 2024-01-05 12:10 | MHC.OFFWIV ---
Intake Vital Signs 01/05/24 12:11 Height 6 ft Weight 291 lb BMI 39.5 BP 120/80 Blood Pressure Location Rt brachial Position Sitting Pulse 85 Pulse Source Pulse Oximeter Temp 100.2 F Temp Source Oral Pulse Oximetry (%) 98 Oxygen Delivery Method Room Air Intake Visit Reasons: EP- Chest congestion, ears are blocked Intake Note: Patient here for ear infection that is now going to the throat and chest congestion. coughing up green mucus which has been going on for about 1 week. Patient Tobacco Use Status: Never used Tobacco Allergies escitalopram [From Lexapro] Adverse Reaction (Verified 01/05/24 12:13) Agitated Do you need a note to return to daycare/school/sports/work: No HPI EP- Chest congestion, ears are blocked HPI Details This note is constructed using voice recognition software. While every effort has been made to ensure accuracy, licensed psychologist manager errors may have been included. The patient is a 43 year old male who presents to the clinic today with cough, congestion, bilateral ear pain and sore throat with fever for the past week. He has tested negative for covid x 1 at home, but reports there are several staff members at the [facility], that are sick and coughing. He has not tried anything to improve his symptoms. [facility], [facility] Medical History Cellulitis Flat feet, bilateral Insomnia COVID-19 alcohol syndrome Anal fistula Jalyn onychomycosis Screening for hyperlipidemia Screening for diabetes mellitus Bunion Obsessive compulsive disorder Rectal bleeding Surgical History No pertinent past surgical history Family History Mother No problems noted. Father No problems noted. Other Substance use disorder Social History Household Members: Other Household Members Other:: [facility] Housing: Other Housing Other:: [facility] Do you presently have visiting nurse or other home services: Yes Unable to assess alcohol history related to: Unknown Alcohol intake: never Comment: Refuses to wear red socks stating he does not have seizure d/o Patient Tobacco Use Status: Never used Tobacco Tobacco use type: Cigarette Cigarette Packs Per Day: 0.5 Cigarettes Per Day: 10.0 Years Smoked: 17 years old e-Cigarette/Vaping Use: Never Used Second Hand Smoke Exposure: Yes service: No Current occupational status: disabled Sexual orientation: Lesbian/Blackwell/Homosexual Cognitive needs: No Hearing needs: No Vision needs: No Review of Systems Const All systems reviewed & are unremarkable except as noted in HPI and below Physical Exam Vital Signs: Last Vital Signs Temp 100.2 F 01/05/24 12:11 Pulse 85 01/05/24 12:11 BP 120/80 01/05/24 12:11 Pulse Ox 98 01/05/24 12:11 Oxygen Delivery Method Room Air 01/05/24 12:11 BMI result Body Mass Index 39.5 Const General: cooperative, healthy appearing, comfortable and no acute distress Orientation/consciousness: patient oriented x3 HEENT Head: Yes normal to inspection, Yes No palpable skull fracture present and Yes normocephalic Ears: hearing grossly normal bilaterally, external ears normal, EAC's normal, mastoids normal (no TTP) bilaterally and TM abnormal bulging bilateral and erythematous bilateral General nose exam: Normal external nose present Face and sinus: Yes normal facial exam Mouth: Normal oral and palatal mucosa present Teeth and gingiva: dentition normal Throat: Yes posterior oropharynx normal Eyes General: appearance normal, both eyes and all related structures Neck Neck: Yes normal visual inspection, Yes full ROM, Yes no meningeal signs, Yes trachea midline, Yes supple and Yes lymphadenopathy (anterior) Resp Effort & Inspection: normal respiratory effort, able to speak in complete sentences and Actively coughing Skin General skin exam: no rashes or lesions noted Neuro General: patient oriented x3 and no meningeal signs Results AMB Rapid Strep AMB Rapid Strep Negative Last Edit by LEO Ceja on 01/05/24 12:45 Results Reviewed Results Reviewed: Laboratory Last Values Strep Scn Rapid Clinic Negative 01/05/24 12:44 Assessment & Plan Assessment & Plan (1) URI (upper respiratory infection): Code(s): J06.9 - Acute upper respiratory infection, unspecified Qualifiers: URI type: unspecified URI Qualified Code(s): J06.9 - Acute upper respiratory infection, unspecified Plan: Rapid strep test negative. Viral swab obtained to rule out Covid based on symptoms. Advised mask wearing while symptomatic and quarantine per current CDC guidelines. Reviewed at home support methods including hydration, humidification, vix vapor rub, sinus rinse. Advised follow up with worsening symptoms such as dyspnea at rest, which would require emergent evaluation. (2) Otitis media: Code(s): H66.90 - Otitis media, unspecified, unspecified ear Qualifiers: Chronicity: acute Laterality: bilateral Otitis media type: suppurative Recurrence: not specified as recurrent Spontaneous tympanic membrane rupture: without spontaneous rupture Qualified Code(s): H66.003 - Acute suppurative otitis media without spontaneous rupture of ear drum, bilateral Plan: Antimicrobial therapy initiated. Advised take to completion. NSAIDs for pain advised. Tested for viral etiology given exposures to sick and symptomatology. Plan See above for full details and plan. penitentiary forms completed. Orders: Orders SARS-CoV2/FLU/RSV Today J06.9 - Acute upper respiratory infection, unspecified AMB Rapid Strep Screen Today Z13.9 - Encounter for screening, unspecified Medications: New amoxicillin-pot clavulanate 875-125 mg 1 tab PO BID 7 days 14 tabs 0RF Coding Level of Care Code Est Pt Level 4 (30592) Diagnoses Upper respiratory tract infection, unspecified type J06.9 URI type: unspecified URI Acute suppurative otitis media of both ears without spontaneous rupture of tympanic membranes, recurrence not specified H66.003 Chronicity: acute Laterality: bilateral Otitis media type: suppurative Recurrence: not specified as recurrent Spontaneous tympanic membrane rupture: without spontaneous rupture Time Spent (min) 30
[2024-01-05 12:11] VITALS: BP 120/80; PULSE 85; TEMP 37.9; O2SAT 98; BMI 39.5
== END 2024-01-05 12:55 | disposition home or self-care (01) ==
PROVIDERS: PCP Physician Assistant; Visit Provider Registered Nurse
DX: J06.9 Acute upper respiratory infection, unspecified (principal); H66.003 Acute suppurative otitis media without spontaneous rupture of ear drum, bilateral; Z13.9 Encounter for screening, unspecified
CPT/HCPCS: 87880; 99214

== ENCOUNTER 2024-01-05 12:32 | Outpatient (REF) | payer OTHER, SELFPAY ==
[2024-01-05 14:08] LABS: Influenza A PCR NEGATIVE (Negative); Influenza B PCR NEGATIVE (Negative); Resp Syncy Virus RNA Qual PCR NEGATIVE (Negative); SARS COV2 PCR INHOUSE POSITIVE (Negative)
== END 2024-01-05 12:33 | disposition home or self-care (01) ==
LOC: HO.LNP 12:32
PROVIDERS: Visit Provider Registered Nurse
DX: J06.9 Acute upper respiratory infection, unspecified (principal)
CPT/HCPCS: 0241U

== ENCOUNTER 2024-02-04 10:03 | Outpatient (AMB) | payer OTHER, SELFPAY ==
--- NOTE | 2024-02-04 10:14 | MHC.PC.OV ---
Vital Signs 02/04/24 10:15 Height 6 ft Weight 291 lb BMI 39.5 BP 124/98 H Blood Pressure Location Lt brachial Position Sitting Pulse 104 H Pulse Source Pulse Oximeter Pulse Oximetry (%) 95 Oxygen Delivery Method Room Air Intake Visit Reasons: 3mth f/u Junior Administrative Assistant Required: No Accompanied by: Program Allergies escitalopram [From Lexapro] Adverse Reaction (Verified 02/04/24 10:26) Agitated Medication List - Last Reconciled 02/04/24 by Cornel Chavez PA-C acetaminophen 325 mg PO Q6H PRN 30 days bacitracin 1 appl See Protocol topical QID 7 days benzonatate 100 mg PO BID PRN bismuth subsalicylate 524 mg (30 mL) PO QID PRN 30 days diazepam 5 mg PO TID PRN divalproex ER 2,000 mg (4 x 500 mg) PO BEDTIME 30 days fluoxetine 100 mg (5 x 20 mg) PO DAILY 30 days fluticasone propionate 50 mcg/actuation (Flonase Allergy Relief) 1 spray intranasal BID PRN 30 days hydroxyzine HCl 50 mg PO BEDTIME lurasidone 120 mg PO DAILY melatonin 6 mg (2 x 3 mg) PO BEDTIME 90 days memantine 1 tab PO BID risperidone 4 mg PO BID trazodone 150 mg PO BEDTIME vitamin E (dl, acetate) 180 mg PO DAILY 90 days Tobacco use date assessed: 11/04/23 Dental Screening Dental Screen Date: 11/04/23 HPI 3mth f/u HPI Details Patient is a 43 year male here today for follow up visit.? Patient has a past medical history significant for OCD, obesity alcohol syndrome, borderline high cholesterol intermittent explosive disorder.? 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 Recently seen at urgent care for upper respiratory illness.. Was found to have otitis media and started on antibiotics. He does report continuing to have a cough that is at times productive. He has quit smoking a few months ago and I congratulated him on this. Will send for x-ray to evaluate for a welcome ammonia. .. OCD/ intermittent explosive disorder: Continues to follow a psychiatrist. Continues to have some skin picking behaviors especially on his face. Does have bacitracin available to him to use on skin lesions and infections. .. Borderline high cholesterol: Has a history of borderline high cholesterol, advised to do fasting labs to re evaluate. Has been trying to eat healthier snacks at home .. Obesity: Have noted elevations in his weight. Today's BMI is 39, may be attributed to his psychiatric medications and inactivity. [facility] Medical History Cellulitis Flat feet, bilateral Insomnia COVID-19 alcohol syndrome Anal fistula Jalyn onychomycosis Screening for hyperlipidemia Screening for diabetes mellitus Bunion Obsessive compulsive disorder Rectal bleeding Surgical History No pertinent past surgical history Family History Mother No problems noted. Father No problems noted. Other Substance use disorder Social History (Updated 02/04/24 @ 10:29 by Cornel Chavez PA-C) Household Members: Other Household Members Other:: correction Housing: Other Housing Other:: [facility] Do you presently have visiting nurse or other home services: Yes Unable to assess alcohol history related to: Unknown Alcohol intake: never Comment: Refuses to wear red socks stating he does not have seizure d/o Patient Tobacco Use Status: Former Tobacco user Tobacco use type: Cigarette Years Smoked: 17 years old e-Cigarette/Vaping Use: Never Used Second Hand Smoke Exposure: Yes service: No Current occupational status: disabled Sexual orientation: Lesbian/Blackwell/Homosexual Cognitive needs: No Hearing needs: No Vision needs: No Questionnaire PHQ-9 Over the last 2 weeks, how often have you been bothered by any of the following problems? 1. Little interest or pleasure in doing things: not at all 2. Feeling down, depressed, or hopeless: not at all 3. Trouble falling or staying asleep, or sleeping too much: not at all 4. Feeling tired or having little energy: not at all 5. Poor appetite or overeating: not at all 6. Feeling bad about yourself - or that you are a failure or have let yourself or your family down: not at all 7. Trouble concentrating on things, such as reading the newspaper or watching television: not at all 8. Moving or speaking so slowly that other people could have noticed. Or the opposite - being so fidgety or restless that you have been moving around a lot more than usual: not at all 9. Thoughts that you would be better off or of hurting yourself in some way: not at all Total score: 0 Depression Screening Interpretation: Negative (current Rx helping) Depression Screening Done: Yes 80094 - PHQ-9 Billing: Yes Source: Developed by Drs. Antonio Hernandez, Nelida Catalan, Han Humphrey and colleagues, with an educational robbie from [employer]. Thrive Questionnaire Date Thrive assessed: 02/04/24 I am a: Patient What is your living situation today?: I have a steady place to live Within the past 12 months, did the food you bought not last and you didn't have the money to get more?: Never true Within the past 12 months, did you worry whether your food would run out before you got money to buy more?: Never true Do you have trouble paying for medicines?: No Do you have trouble getting transportation to medical appointments?: No Do you have trouble paying your heating and electricity bill?: No Do you have trouble taking care of your child, family member or friend?: No Do you have trouble with day-to-day activities such as bathing, preparing meals, shopping, managing finances, etc.?: No Are you currently unemployed and looking for a job?: No Are you interested in more education?: No Please select the resources that you would like help with: None Currently or been in a relationship where the following occur: No concerns reported THRIVE Score: 0 AUDIT C Alcohol Use Questionnaire (AUDIT-C) 1. How often do you have a drink containing alcohol?: Never 3. How often do you have six or more drinks on one occasion?: Never Total Score: 0 Score Reviewed/Action Taken: No SHRUTI-7 AMB Questionnaire SHRUTI-7 Date SRHUTI - 7 assessed: 02/04/24 Source: Developed by Drs. Antonio Hernandez, Nelida Catalan, Han Humphrey and colleagues, with an educational robbie from [employer]. Review of Systems Const Denies headache(s) Eyes Denies loss of vision ENT Denies vertigo, Denies dizziness, Denies headache(s) and Denies sore throat Card Denies chest pain, Denies leg edema and Denies lightheadedness Resp Denies chest congestion, Reports cough, Denies hemoptysis and Denies wheezing GI Denies abdominal pain, Denies melena, Denies constipation, Denies diarrhea and Denies vomiting Denies dysuria, Denies urinary frequency and Denies urinary urgency Musc Denies arthralgias, Denies joint swelling, Denies numbness and Denies tingling Neuro Denies Abnormal speech present, Denies behavioral changes, Denies vertigo, Denies dizziness, Denies headache(s), Denies loss of vision, Denies memory loss, Denies numbness and Denies tingling Psych Denies anxiety, Denies behavioral changes, Denies depression, Denies memory loss and Denies panic attacks Bobby/Lymph Denies easy bleeding and Denies easy bruising Aller/Immun Denies wheezing Physical exam (Primary Care) Vital Signs: Last Vital Signs Pulse 104 H 02/04/24 10:15 BP 124/98 H 02/04/24 10:15 Pulse Ox 95 02/04/24 10:15 Oxygen Delivery Method Room Air 02/04/24 10:15 BMI result Body Mass Index 39.5 Tobacco/Smoking Status: Tobacco use Status Tobacco use date assessed 11/04/23 02/04/24 10:15 Patient Tobacco Use Status Never used Tobacco 02/04/24 10:15 Tobacco use type Cigarette 02/04/24 10:15 e-Cigarette/Vaping Use Never Used 02/04/24 10:15 PHQ-9: PHQ-9 Score PHQ-9: Total score 0 02/04/24 10:15 Depression Screening Interpretation: Negative (current Rx helping) Thrive Assessment: Date of Thrive Assessment Date Thrive assessed 02/04/24 02/04/24 10:15 Currently or been in a relationship where the following occur: No concerns reported Const General: healthy appearing, no acute distress, alert and awake Nutritional Appearance: well nourished Orientation/consciousness: oriented to person, oriented to place and oriented to time HENMT Other: AFFECT EXTERNAL CANAL SLIGHTLY ERYTHEMATOUS General nose exam: Normal nasal mucous membranes and turbinates present Eyes Conjunctivae: conjunctivae normal Sclerae: sclerae normal Pupils: Equal, round and reactive pupils present Neck Neck: Yes no lymphadenopathy and Yes no JVD Thyroid: Thyroid normal Carotids: no bruits Resp Effort & Inspection: normal respiratory effort and not tachypneic Auscultation: no crackles, no rales, no rhonchi and no wheezes Cardio Rate: regular rate Rhythm: regular rhythm Heart sounds: no murmurs and normal S1 and S2 GI Palpation (GI): Soft to palpation, nontender, no hepatomegaly and no splenomegaly Auscultation: normal bowel sounds Skin General skin exam: no rashes or lesions noted and dry skin Neuro General: oriented to person, oriented to place and oriented to time Cranial nerves: Yes Equal, round and reactive pupils present Speech: No Abnormal speech present Gait exam (Neuro): Normal gait present Motor exam (neuro): no tremor noted Extrem Right upper extremity: full ROM Left upper extremity: full ROM Right lower extremity: full ROM; no edema Left lower extremity: full ROM; no edema Psych Mental Status: mental status grossly normal Speech and movement: Normal speech and movement present Affect: normal affect Attitude: cooperative Thought process: Normal thought process present Assessment and Plan Assessment & Plan (1) Borderline high cholesterol: Code(s): E78.9 - Disorder of lipoprotein metabolism, unspecified Plan: Most recent fasting lipid panel showing borderline high total cholesterol triglycerides. Likely secondary to his psychiatric medications and recent weight gain. Advised to exercise and watch diet. (2) Obese: Code(s): E66.9 - Obesity, unspecified Qualifiers: Obesity type: due to excess calories Obesity classification: adult class 2 (BMI 35 - 39.9) Serious obesity comorbidity presence: without serious comorbidity Body mass index: BMI 37.0-37.9 Qualified Code(s): E66.09 - Other obesity due to excess calories; Z68.37 - Body mass index [BMI] 37.0-37.9, adult Plan: Healthy food choices and exercise as tolerated (3) OCD (obsessive compulsive disorder): Code(s): F42.9 - Obsessive-compulsive disorder, unspecified Qualifiers: Obsessive-compulsive disorder type: mixed obsessional thoughts and acts Qualified Code(s): F42.2 - Mixed obsessional thoughts and acts Plan: Continue to follow-up with Psychiatry Continue treatment as prescribed by Psychiatry (4) Impaired glucose metabolism: Code(s): R73.09 - Other abnormal glucose Plan: Most recent fasting blood sugar slightly elevated at 107. Again advised on lifestyle modification (5) Bronchitis: Code(s): J40 - Bronchitis, not specified as acute or chronic Plan: Has had cough over the last several weeks. He has stopped smoking over last couple of months. Was on antibiotics for possible ear infection. Sometimes he reports his cough is productive. Will send for x-ray to evaluate for pneumonia. Orders: Orders XR chest 2V Today J40 - Bronchitis, not specified as acute or chronic Medications: New benzonatate 100 mg PO BID 30 days PRN 60 caps 3RF cough J40 - Bronchitis, not specified as acute or chronic Coding Level of Care Code Est Pt Level 4 (71092) Diagnoses Borderline high cholesterol E78.9 Class 2 obesity due to excess calories without serious comorbidity with body mass index (BMI) of 37.0 to 37.9 in adult E66.09; Z68.37 Obesity type: due to excess calories Obesity classification: adult class 2 (BMI 35 - 39.9) Serious obesity comorbidity presence: without serious comorbidity Body mass index: BMI 37.0-37.9 Mixed obsessional thoughts and acts F42.2 Obsessive-compulsive disorder type: mixed obsessional thoughts and acts Impaired glucose metabolism R73.09 Bronchitis J40
[2024-02-04 10:15] VITALS: BP 124/98; PULSE 104; O2SAT 95; BMI 39.5
== END 2024-02-04 10:41 | disposition home or self-care (01) ==
PROVIDERS: PCP Physician Assistant; Visit Provider Physician Assistant
DX: E78.9 Disorder of lipoprotein metabolism, unspecified (principal); E66.09 Other obesity due to excess calories; Z68.37 Body mass index [BMI] 37.0-37.9, adult; F42.2 Mixed obsessional thoughts and acts; R73.09 Other abnormal glucose; J40 Bronchitis, not specified as acute or chronic

== ENCOUNTER 2024-02-04 10:03 | Outpatient (REF) | payer OTHER, SELFPAY ==
--- NOTE | ~2024-02-04 | XR_ITS ---
EXAMINATION: XR CHEST CLINICAL INFORMATION: J40 - Bronchitis, not specified as acute or chronic COMPARISON: 06/05/2020. TECHNIQUE: 2 views of the chest were obtained. FINDINGS: The cardiac, hilar, and mediastinal contours are normal. The lungs are clear bilaterally. There is no pneumothorax or pleural effusion. There is no focal osseous or soft tissue abnormality. XR/XR chest 2V IMPRESSION: No active disease. Electronically signed by: Jack Perkins MD 04/12/2024 01:36 PM [facility]
[2024-02-04 11:39] LABS: Estimated Average Glucose 123 mg/dL; Hemoglobin A1c % 5.9 % (<6.0)
[2024-02-04 12:21] LABS: Alanine Aminotransferase 34 U/L (0-40); Albumin Level 4.2 g/dL (3.5-5.0); Alkaline Phosphatase 75 U/L (39-117); Anion Gap 12 (12-20); Aspartate Amino Transferase 17 U/L (5-37); Bilirubin Total 0.3 mg/dL (0.0-1.0); Blood Urea Nitrogen 11 mg/dL (9-16); Calcium 9.8 mg/dL (8.4-10.2); Carbon Dioxide 34 mmol/L (22-29); Chloride 101 mmol/L (96-108); Cholesterol 229 mg/dL (<200); Estimated Glomerular Filt Rate > 60; Glucose Fasting 101 mg/dL (60-99); HDL Cholesterol 40 mg/dL (>40); LDL Cholesterol Calculated 132 mg/dL (<100); Sodium 143 mmol/L (135-145); Total Protein 7.7 g/dL (6.5-8.0); Triglycerides 289 mg/dL (<150)
== END 2024-02-04 10:04 | disposition home or self-care (01) ==
LOC: HO.XRAY 10:03
PROVIDERS: PCP Physician Assistant; Visit Provider Physician Assistant
DX: E78.9 Disorder of lipoprotein metabolism, unspecified (principal); E66.09 Other obesity due to excess calories; Z68.37 Body mass index [BMI] 37.0-37.9, adult; F42.2 Mixed obsessional thoughts and acts; J40 Bronchitis, not specified as acute or chronic; R73.01 Impaired fasting glucose
CPT/HCPCS: 71046; 80053; 80061; 83036; 96127; 99212

== ENCOUNTER → 2024-02-04 11:17 | Outpatient (BNV) | payer OTHER, SELFPAY | PROVIDERS: PCP Physician Assistant; Visit Provider Radiology Diagnostic Radiology | DX: J40 Bronchitis, not specified as acute or chronic (principal) | CPT/HCPCS: 71046 ==

== ENCOUNTER 2024-06-24 10:48 | Outpatient (AMB) | payer OTHER, SELFPAY ==
--- NOTE | 2024-06-24 11:12 | AM.OFFWIN_ITS ---
Intake Vital Signs 06/24/24 11:15 Weight 291 lb BP 124/82 Blood Pressure Location Lt brachial Position Sitting Pulse 68 Pulse Source Pulse Oximeter Pulse Oximetry (%) 98 Oxygen Delivery Method Room Air Intake Visit Reasons: EP RT big toe cut Intake Note: Patient here because he was laying bed and was trying to kick blanket off and was cut on right foot. 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 He tells me that in his sheets, they were pieces of broken glass and 1 of them cut the top of his toe. He tried to get the bleeding to stop with his [facility] workers and he says it took awhile but eventually the bleeding did stop. He did not do anything else to the cut before they came into the clinic. He denies being on a blood thinner. Physical Exam General: Cooperative, healthy appearing, comfortable, no acute distress and well developed Orientation: Patient oriented x3 Limitations: No limitations Head: Normal to inspection Ears: Hearing grossly normal bilaterally Nose: Normal Nxternal nose present Face and sinus: ormal facial exam Eyes: Appearance normal, both eyes and all related structures Neck: Normal visual inspection and Yes full ROM Respiratory: Normal respiratory effort and able to speak in complete sentences Skin: Right great toe, has a 0.25 x0.25cm piece of missing skin at the tip of the toe, bleeding controlled. Onychomycosis on all 5 toenails. Neuro: Patient oriented x3 Extremities: Normal to inspection [facility] Medical History Cellulitis Flat feet, bilateral Insomnia COVID-19 alcohol syndrome Anal fistula Jalyn onychomycosis Screening for hyperlipidemia Screening for diabetes mellitus Bunion Obsessive compulsive disorder Rectal bleeding Surgical History No pertinent past surgical history Family History Mother No problems noted. Father No problems noted. Other Substance use disorder Social History (Updated 02/04/24 @ 10:29 by Cornel Chavez PA-C) Household Members: Other Household Members Other:: longterm Housing: Other Housing Other:: Skilled Nursing Do you presently have visiting nurse or other home services: Yes Unable to assess alcohol history related to: Unknown Alcohol intake: never Comment: Refuses to wear red socks stating he does not have seizure d/o Patient Tobacco Use Status: Former Tobacco user Tobacco use type: Cigarette Years Smoked: 17 years old e-Cigarette/Vaping Use: Never Used Second Hand Smoke Exposure: Yes service: No Current occupational status: disabled Sexual orientation: Lesbian/Blackwell/Homosexual Cognitive needs: No Hearing needs: No Vision needs: No Review of Systems Const All systems reviewed & are unremarkable except as noted in HPI and below Physical Exam Vital Signs: Last Vital Signs Pulse 68 06/24/24 11:15 Pulse Ox 98 06/24/24 11:15 Oxygen Delivery Method Room Air 06/24/24 11:15 Assessment & Plan Assessment & Plan (1) Laceration of toe: Code(s): S91.119A - Laceration without foreign body of unspecified toe without damage to nail, initial encounter Qualifiers: Encounter type: initial encounter Toe: great toe Damage to nail status: without damage Foreign body presence: without foreign body Laterality: left Qualified Code(s): S91.112A - Laceration without foreign body of left great toe without damage to nail, initial encounter Plan: Irrigated area with saline and Betadine, covered with bacitracin and wrapped in gauze and covered with a clean sock. Recommended patient keep the wound clean dry and intact, wearing socks for the next few days. He should change the bandage daily for the next 3-4 days and then can transition from gauze wrap to a Band-Aid. He should wear clean socks with his shoes. Coding Level of Care Code Est Pt Level 4 (90649) Diagnoses Laceration of left great toe without foreign body present or damage to nail, initial encounter S91.112A Encounter type: initial encounter Toe: great toe Damage to nail status: without damage Foreign body presence: without foreign body Laterality: left
[2024-06-24 11:15] VITALS: BP 124/82; PULSE 68; O2SAT 98
--- OUTSIDE RECORDS SUMMARY | 2024-06-24 11:28 | XMS_ITS | Clinical Summary ---
Author Organization 175 [facility] Address [address] [place] [address] Phone Care Team Providers Care Receivables Specialist Name Role Phone Cornel Chavez Primary Care Provider Allergies No known active allergies Medications silver sulfADIAZINE (SILVADENE, SSD) 1 % cream Apply topically to nail bed daily 3 Active divalproex sodium (DEPAKOTE ORAL) Take 2,000 mg by mouth. Active trazodone HCl (DESYREL ORAL) Take 150 mg by mouth. Active lurasidone (LATUDA) 120 mg tablet Take by mouth. Activ e melatonin 3 mg tablet Take 2 Tablets by mouth. Active memantine (NAMENDA) 10 mg tablet Take 1 Tablet by mouth 2 times daily. Active FLUoxetine (PROzac) 40 mg capsule Take 2 Capsules by mouth daily. Active risperiDONE (RisperDAL) 4 mg tablet Take 1 Tablet by mouth 2 times daily. Active diazePAM (VALIUM) 2 mg tablet Take 2 Tablets by mouth every 8 hours as needed. Active hydroxyzine HCl (ATARAX ORAL) Take 25 mg by mouth. Active benzonatate (TESSALON) 100 mg capsule Take 1 Capsule by mouth 3 times daily as needed. Active fluticasone propionate (FLONASE NASL) by Nasal route. Active Active Problems Problem Noted Date Diagnosed Date Anal fistula 02/19/2024 Bunion 02/19/2024 Jalyn onychomycosis 02/19/2024 alcohol syndrome 02/19/2024 Flat feet, bilateral 02/19/2024 Obsessive compulsive disorder 02/19/2024 Rectal bleeding 02/19/2024 Encounters Date Type Department Care Team Description 05/24/2024 3:30 PM EST Office Visit Orthopedic Surgery [facility] [address] [address] Clifton Dean DPM Ingrowing nail (Primary Dx); Dermatophytosis of nail; Pain in toe of left foot; Pain in toe of right foot; Difficulty walking from Last 3 Months Social History Tobacco Use Types Packs/Day Years Used Date Smoking Tobacco: Never Assessed Sex and Gender Information Value Date Recorded Sex Assigned at Not on file Legal Sex Male 9:08 PM EST Gender Identity Not on file Sexual Orientation Not on file Last Filed Vital Signs Vital Sign Reading Time Taken Comments Blood Pressure - - Pulse - - Temperature - - Respiratory Rate - - Oxygen Saturation - - Inhaled Oxygen Concentration - - Weight 127 kg (279 lb) 05/24/2024 4:03 PM EST Height 182.9 cm (6' 0.01 ) 05/24/2024 4:03 PM ES T Body Mass Index 37.83 05/24/2024 4:03 PM EST Plan of Treatment Upcoming Encounters Date Type Department Care Team (Late st Contact Info) Description 08/24/2024 3:30 PM EDT Office Visit Orthopedic Surgery [facility] [address] [phone] Clifton Dean DPM [address] [id number] Health Maintenance Due Date Last Done Comments Hepatitis B Vaccines (1 of 3 - 19+ 3-dose series) 1998 Cholesterol Screening (Lipid Panel) 06/06/2023 Colorectal Cancer Screening: Colonoscopy 06/06/2023 Depression Screening 06/06/2023 HIV Screening 06/06/2023 Hepatitis C Screening 06/06/2023 Medicare Annual Wellness Visit 06/06/2023 Social Influencers of Health Screening 06/06/2023 COVID-19 Vaccine ( season) 2024 05/17/2023, 05/24/2022, 03/30/2021, Additional history exists Influenza Vaccine (#1) 2024 05/17/2023, 2021 DTaP,Tdap,and Td Vaccines (2 - Td or Tdap) 01/15/2033 01/15/2023 HIB Vaccines Aged Out No longer eligi ble based on patient's age to complete this topic HPV Vaccines Aged Out No longer eligi ble based on patient's age to complete this topic Hepatitis A Vaccines Aged Out No long er eligible based on patient's age to complete this topic IPV Vaccines Aged Out No longer eligi ble based on patient's age to complete this topic MMR Vaccines Aged Out No longer eligi ble based on patient's age to complete this topic Meningococcal ACWY Vaccine Aged Out N o longer eligible based on patient's age to complete this topic Meningococcal B Vacine Aged Out No lo nger eligible based on patient's age to complete this topic Pneumococcal Vaccine: Pediatrics (0 to 5 Years) and At-Risk Patients (6 to 64 Years) Aged Out No longer eligible based on patient's age to complete this topic RSV Immunization Patients Under 20 months Aged Out No longer eligible based on patient's age to complete this topic Varicella Vaccines Aged Out No longer eligible based on patient's age to complete this topic Insurance MEDICARE Member Subscriber Plan / Payer (Ef fective 2024-Present) Name:Shadi Fowler Relation to Subscriber:Self Name:Shadi Fowler Payer ID:[id number] Group ID:[id number] Type:Not on file Address: [place] [address] [address] [id number] Care Teams Receivables Specialist Relationship Specialty Start Date End Date Cornel Chavez PA PCP - General 01/17/23
== END 2024-06-24 12:47 | disposition home or self-care (01) ==
PROVIDERS: PCP Physician Assistant; Visit Provider Physician Assistant
DX: S91.112A Laceration without foreign body of left great toe without damage to nail, initial encounter (principal)

== ENCOUNTER → 2024-06-24 10:48 | Outpatient (BNVA) | payer OTHER, SELFPAY | PROVIDERS: PCP Physician Assistant | DX: S91.112A Laceration without foreign body of left great toe without damage to nail, initial encounter (principal) | CPT/HCPCS: 99212 ==

== ENCOUNTER 2024-07-07 08:47 | Outpatient (AMB) | payer OTHER, SELFPAY ==
--- NOTE | 2024-07-07 08:49 | MHC.PC.OV ---
Vital Signs 07/07/24 08:51 Height 6 ft Weight 297 lb 2 oz BMI 40.3 BP not taken reason Patient Refused Pulse 82 Pulse Source Pulse Oximeter Temp 97.3 F Temp Source Temporal Artery Scan Pulse Oximetry (%) 92 Oxygen Delivery Method Room Air Intake Visit Reasons: 3 month f/u Intake Note: Patient is here to follow up on OCD, High cholesterol. 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 Accompanied by: staff Allergies escitalopram [From Lexapro] Adverse Reaction (Verified 07/07/24 09:23) Agitated Medication List - Last Reconciled 07/07/24 by Cornel Chavez PA-C acetaminophen 325 mg PO Q6H PRN 30 days bacitracin 1 appl See Protocol topical QID 7 days bismuth subsalicylate 524 mg (30 mL) PO QID PRN 30 days diazepam 5 mg PO TID PRN divalproex ER 2,000 mg (4 x 500 mg) PO BEDTIME 30 days fluoxetine 100 mg (5 x 20 mg) PO DAILY 30 days fluticasone propionate 50 mcg/actuation (Flonase Allergy Relief) 1 spray intranasal BID PRN 30 days hydroxyzine HCl 50 mg PO BEDTIME lurasidone 120 mg PO DAILY melatonin 6 mg (2 x 3 mg) PO BEDTIME 90 days memantine 1 tab PO BID risperidone 4 mg PO BID trazodone 150 mg PO BEDTIME vitamin E (dl, acetate) 180 mg PO DAILY 90 days Tobacco use date assessed: 07/07/24 Dental Screening Dental Screen Date: 07/07/24 Did you have a dental visit in the last 12 months?: Yes Did you have a dental problem in the last 6 months where you did not have access to dental care?: No Was dental information given to patient?: Patient has dentist HPI 3 month f/u HPI Details Patient is a 44 year male here today for follow up visit.? Patient has a past medical history significant for OCD, obesity alcohol syndrome, borderline high cholesterol intermittent explosive disorder.? 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 .. OCD/ intermittent explosive disorder: Continues to follow a psychiatrist (Dr. Nguyen). Continues to have some skin picking behaviors especially on his face. Does have bacitracin available to him to use on skin lesions and infections. .. Borderline high cholesterol: Has a history of borderline high cholesterol, advised to do fasting labs to re evaluate. Has been trying to eat healthier snacks at home .. Obesity: Have noted elevations in his weight. Today's BMI is 39, may be attributed to his psychiatric medications and inactivity. Laboratory Tests 01/17/23 06/13/23 02/04/24 07:30 15:40 11:05 WBC 11.6 H RBC 5.17 Fasting Glucose 101 H Hemoglobin A1c % 5.9 Triglycerides 252 H Cholesterol 214 H 229 H LDL Cholesterol, C alc 130 H 132 H PFSH Medical History Cellulitis Flat feet, bilateral Insomnia COVID-19 alcohol syndrome Anal fistula Jalyn onychomycosis Screening for hyperlipidemia Screening for diabetes mellitus Bunion Obsessive compulsive disorder Rectal bleeding Surgical History No pertinent past surgical history Family History Mother No problems noted. Father No problems noted. Other Substance use disorder Social History Household Members: Other Household Members Other:: residential Housing: Other Housing Other:: Alf Do you presently have visiting nurse or other home services: Yes Unable to assess alcohol history related to: Unknown Alcohol intake: never Comment: Refuses to wear red socks stating he does not have seizure d/o Patient Tobacco Use Status: Former Tobacco user Tobacco use type: Cigarette Years Smoked: 17 years old e-Cigarette/Vaping Use: Never Used Second Hand Smoke Exposure: Yes service: No Current occupational status: disabled Sexual orientation: Lesbian/Blackwell/Homosexual Cognitive needs: No Hearing needs: No Vision needs: No Questionnaire PHQ-9 Over the last 2 weeks, how often have you been bothered by any of the following problems? 1. Little interest or pleasure in doing things: not at all 2. Feeling down, depressed, or hopeless: not at all 3. Trouble falling or staying asleep, or sleeping too much: not at all 4. Feeling tired or having little energy: not at all 5. Poor appetite or overeating: not at all 6. Feeling bad about yourself - or that you are a failure or have let yourself or your family down: not at all 7. Trouble concentrating on things, such as reading the newspaper or watching television: not at all 8. Moving or speaking so slowly that other people could have noticed. Or the opposite - being so fidgety or restless that you have been moving around a lot more than usual: not at all 9. Thoughts that you would be better off or of hurting yourself in some way: not at all Total score: 0 Depression Screening Interpretation: Negative Depression Screening Done: Yes 98333 - PHQ-9 Billing: Yes Source: Developed by Drs. Antonio Hernandez, Nelida Catalan, Han Humphrey and colleagues, with an educational robbie from [employer]. Thrive Questionnaire Date Thrive assessed: 07/07/24 I am a: Patient What is your living situation today?: I have a steady place to live Within the past 12 months, did the food you bought not last and you didn't have the money to get more?: Never true Within the past 12 months, did you worry whether your food would run out before you got money to buy more?: Never true Do you have trouble paying for medicines?: No Do you have trouble getting transportation to medical appointments?: No Do you have trouble paying your heating and electricity bill?: No Do you have trouble taking care of your child, family member or friend?: No Do you have trouble with day-to-day activities such as bathing, preparing meals, shopping, managing finances, etc.?: No Are you currently unemployed and looking for a job?: No Are you interested in more education?: No Please select the resources that you would like help with: None Currently or been in a relationship where the following occur: No concerns reported THRIVE Score: 0 AUDIT C Alcohol Use Questionnaire (AUDIT-C) 1. How often do you have a drink containing alcohol?: Never Total Score: 0 SHRUTI-7 AMB Questionnaire SHRUTI-7 Date SHRUTI - 7 assessed: 07/07/24 Feeling nervous, anxious, or on edge: 0 = Not at all Not being able to stop or control worryin = Not at all Worrying too much about different things: 0 = Not at all Trouble relaxin = Not at all Being so restless that it is hard to sit still: 0 = Not at all Becoming easily annoyed or irritable: 0 = Not at all Feeling afraid as if something awful might happen: 0 = Not at all Total SHRUTI-7 score (0-4 normal; 5-9 mild; 10-14 moderate; 15-21 severe): 0 Source: Developed by Drs. Antonio Hernandez, Nelida Catalan, Han Humphrey and colleagues, with an educational robbie from [employer]. SHRUTI-7 Assessment Billing SHRUTI-7 Assessment Tool: SHRUTI-7 Assessment 17105 Review of Systems Const Denies headache(s) Eyes Denies loss of vision ENT Denies vertigo, Denies dizziness, Denies headache(s) and Denies sore throat Card Denies chest pain, Denies leg edema and Denies lightheadedness Resp Denies cough, Denies hemoptysis and Denies wheezing GI Denies abdominal pain, Denies melena, Denies constipation, Denies diarrhea and Denies vomiting Denies dysuria, Denies urinary frequency and Denies urinary urgency Musc Denies arthralgias, Denies joint swelling, Denies numbness and Denies tingling Neuro Denies Abnormal speech present, Denies behavioral changes, Denies vertigo, Denies dizziness, Denies headache(s), Denies loss of vision, Denies memory loss, Denies numbness and Denies tingling Psych Denies anxiety, Denies behavioral changes, Denies depression, Denies memory loss and Denies panic attacks Bobby/Lymph Denies easy bleeding and Denies easy bruising Aller/Immun Denies wheezing Physical exam (Primary Care) Vital Signs: Last Vital Signs Temp 97.3 F 07/07/24 08:51 Pulse 82 07/07/24 08:51 Pulse Ox 92 07/07/24 08:51 Oxygen Delivery Method Room Air 07/07/24 08:51 BMI result Body Mass Index 40.3 Tobacco/Smoking Status: Tobacco use Status Tobacco use date assessed 07/07/24 07/07/24 08:56 Patient Tobacco Use Status Former Tobacco user 07/07/24 08:56 Tobacco use type Cigarette 07/07/24 08:56 e-Cigarette/Vaping Use Never Used 07/07/24 08:56 PHQ-9: PHQ-9 Score PHQ-9: Total score 0 07/07/24 09:28 Depression Screening Interpretation: Negative Thrive Assessment: Date of Thrive Assessment Date Thrive assessed 07/07/24 07/07/24 08:56 Currently or been in a relationship where the following occur: No concerns reported Const General: healthy appearing, no acute distress, alert and awake Nutritional Appearance: well nourished Orientation/consciousness: oriented to person, oriented to place and oriented to time HENMT Ears: TM's normal bilaterally General nose exam: Normal nasal mucous membranes and turbinates present Eyes Conjunctivae: conjunctivae normal Sclerae: sclerae normal Pupils: Equal, round and reactive pupils present Neck Neck: Yes no lymphadenopathy and Yes no JVD Thyroid: Thyroid normal Carotids: no bruits Resp Effort & Inspection: normal respiratory effort and not tachypneic Auscultation: no crackles, no rales, no rhonchi and no wheezes Cardio Rate: regular rate Rhythm: regular rhythm Heart sounds: no murmurs and normal S1 and S2 GI Palpation (GI): Soft to palpation, nontender, no hepatomegaly and no splenomegaly Auscultation: normal bowel sounds Skin General skin exam: no rashes or lesions noted and dry skin Neuro General: oriented to person, oriented to place and oriented to time Cranial nerves: Yes Equal, round and reactive pupils present Speech: No Abnormal speech present Gait exam (Neuro): Normal gait present Motor exam (neuro): no tremor noted Extrem Right upper extremity: full ROM Left upper extremity: full ROM Right lower extremity: full ROM; no edema Left lower extremity: full ROM; no edema Psych Mental Status: mental status grossly normal Speech and movement: Normal speech and movement present Affect: normal affect Attitude: cooperative Thought process: Normal thought process present Coding Level of Care Code Est Pt Level 4 (48903) Diagnoses Impaired glucose metabolism R73.09 Borderline high cholesterol E78.9 Mixed obsessional thoughts and acts F42.2 Obsessive-compulsive disorder type: mixed obsessional thoughts and acts Additional Codes SHRUTI-7 Assessment Billing - SHRUTI-7 Assessment Tool: SHRUTI-7 Assessment 25548 ([id number]) PHQ-9 - 73397 - PHQ-9 Billing: Yes ([id number]) Assessment & Plan Assessment & Plan (1) Impaired glucose metabolism: Code(s): R73.09 - Other abnormal glucose Category: Medical Plan: Patient's most recent fasting blood sugar elevated in A1c in prediabetic range at 5.9. Will continue to try to work on dietary modifications though patient is somewhat apprehensive on this. Will recheck fasting sugar and A1c (2) Borderline high cholesterol: Code(s): E78.9 - Disorder of lipoprotein metabolism, unspecified Category: Medical Plan: Patient's most recent lipid panel showing borderline high cholesterol and LDL. Unfortunately has not been adherent to good eating habits. Has gained weight since last office visit. Advised on being more physically active adapting to better eating habits (3) OCD (obsessive compulsive disorder): Code(s): F42.9 - Obsessive-compulsive disorder, unspecified Category: Medical Qualifiers: Obsessive-compulsive disorder type: mixed obsessional thoughts and acts Qualified Code(s): F42.2 - Mixed obsessional thoughts and acts Plan: Continues to live in a [facility], continues to follow Dr. Nguyen his psychiatrist in his managing his mental health medications Orders: Orders Hemoglobin A1c 07/07/24 R73.09 - Other abnormal glucose Comprehensive Collins. Panel Fast 07/07/24 E78.9 - Disorder of lipoprotein metabolism, unspecified Lipid Panel 07/07/24 E78.9 - Disorder of lipoprotein metabolism, unspecified Complete Blood Count no Diff 07/07/24 E78.9 - Disorder of lipoprotein metabolism, unspecified
[2024-07-07 08:51] VITALS: PULSE 82; TEMP 36.3; O2SAT 92; BMI 40.3
--- OUTSIDE RECORDS SUMMARY | 2024-07-07 09:31 | XMS_ITS | Clinical Summary ---
Author Organization 175 [facility] Address [address] [place] [address] Phone Care Team Providers Care Cad Designer Name Role Phone Cornel Chavez Primary Care [...] 3:30 PM EST Office Visit Orthopedic Surgery [facility] [address] [address] Clifton Dean DPM Ingrowing nail (Primary Dx); [...] 3:30 PM EDT Office Visit Orthopedic Surgery [facility] [address] [phone] Clifton Dean DPM [address] [address] Health Maintenance Due Date Last Done Comments [...] ID:[id number] Group ID:[id number] Type:Not on file Address: [place] [address] [address] [id number] Care Teams Cad Designer Relationship Specialty Start Date End Date Cornel Chavez PA PCP - General 01/17/23
== END 2024-07-07 09:35 | disposition home or self-care (01) ==
PROVIDERS: PCP Physician Assistant; Visit Provider Physician Assistant
DX: R73.09 Other abnormal glucose (principal); E78.9 Disorder of lipoprotein metabolism, unspecified; F42.2 Mixed obsessional thoughts and acts

== ENCOUNTER → 2024-07-07 08:47 | Outpatient (BNVA) | payer OTHER, SELFPAY | PROVIDERS: PCP Physician Assistant; Visit Provider Physician Assistant | DX: R73.09 Other abnormal glucose (principal); E78.9 Disorder of lipoprotein metabolism, unspecified; F42.2 Mixed obsessional thoughts and acts | CPT/HCPCS: 96127; 99212 ==

== ENCOUNTER 2024-07-19 15:51 | Emergency (ER) | payer OTHER, SELFPAY ==
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
[2024-07-19 15:59] VITALS: BP 131/90; PULSE 100; RESP 19; TEMP 36.6; O2SAT 93; BMI 37.9
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
--- NOTE | 2024-07-19 22:24 | PC.NURSE ---
no answer from @ 22:20
== END 2024-07-19 22:25 | disposition left against medical advice (07) ==
PROVIDERS: Emergency Provider Emergency Medicine
DX: S61.411A Laceration without foreign body of right hand, initial encounter (principal); W25.XXXA Contact with sharp glass, initial encounter; Y93.89 Activity, other specified; Y92.199 Unspecified place in other specified residential institution as the place of occurrence of the external cause; Y99.9 Unspecified external cause status
CPT/HCPCS: 73110; 73130; 99281; 99283

== ENCOUNTER → 2024-07-19 16:05 | Outpatient (BNV) | payer OTHER, SELFPAY | PROVIDERS: Visit Provider Radiology Diagnostic Radiology | DX: S61.411A Laceration without foreign body of right hand, initial encounter (principal) | CPT/HCPCS: 73110; 73130 ==

== ENCOUNTER 2024-09-02 12:11 | Outpatient (AMB) | payer OTHER, SELFPAY ==
--- NOTE | 2024-09-02 13:29 | MHC.OFFWIV ---
Intake Vital Signs 09/02/24 13:32 Weight 291 lb BP 124/80 Blood Pressure Location Lt brachial Position Sitting Pulse 98 Pulse Source Pulse Oximeter Pulse Oximetry (%) 97 Oxygen Delivery Method Room Air Intake Visit Reasons: EP Urine issues, blood in semen Intake Note: Patient here because he has not been able to urinate, feels like he has a full bladder but just cant go. Patient Tobacco Use Status: Former Tobacco user Allergies escitalopram [From Lexapro] Adverse Reaction (Verified 09/02/24 13:36) Agitated Do you need a note to return to daycare/school/sports/work: No HPI HPI Comments History of Present Illness Details 44 y/o Male patient who presents to the walk in clinic with c/o Urinary hesitance. Reports needing to Hit his Bladder to initiate urination. He does admit to not drinking enough fluids and his urine is always Dark in color. Denies Dysuria or frequency. [facility] Medical History (Updated 09/02/24 @ 14:37 by Rachel Paniagua NP) Urinary hesitancy Cellulitis Flat feet, bilateral Insomnia COVID-19 alcohol syndrome Anal fistula Jalyn onychomycosis Screening for hyperlipidemia Screening for diabetes mellitus Bunion Obsessive compulsive disorder Rectal bleeding Surgical History No pertinent past surgical history Family History Mother No problems noted. Father No problems noted. Other Substance use disorder Social History Household Members: Other Household Members Other:: long-term Housing: Other Housing Other:: Senior Living Do you presently have visiting nurse or other home services: Yes Unable to assess alcohol history related to: Unknown Alcohol intake: never Comment: Refuses to wear red socks stating he does not have seizure d/o Patient Tobacco Use Status: Former Tobacco user Tobacco use type: Cigarette Years Smoked: 17 years old e-Cigarette/Vaping Use: Never Used Second Hand Smoke Exposure: Yes service: No Current occupational status: disabled Sexual orientation: Lesbian/Blackwell/Homosexual Cognitive needs: No Hearing needs: No Vision needs: No Review of Systems Const All systems reviewed & are unremarkable except as noted in HPI and below Physical Exam Vital Signs: Last Vital Signs Pulse 98 09/02/24 13:32 BP 124/80 09/02/24 13:32 Pulse Ox 97 09/02/24 13:32 Oxygen Delivery Method Room Air 09/02/24 13:32 Const General: no acute distress Nutritional Appearance: obese Orientation/consciousness: patient oriented x3 Limitations: behavioral limitations General: Yes no CVA tenderness Back/Spine/Pelvis Back: no CVA tenderness Neuro General: patient oriented x3, gait normal and moves all extremities Assessment & Plan Assessment & Plan (1) Urinary hesitancy: Code(s): R39.11 - Hesitancy of micturition Plan: Urinalysis Negative. DDx's: BPH Advised to f/u with PCP for possible Urology referral Advised to hydrate well with plenty of fluids. Coding Level of Care Code Est Pt Level 4 (46313) Diagnoses Urinary hesitancy R39.11 Time Spent (min) 20
[2024-09-02 13:32] VITALS: BP 124/80; PULSE 98; O2SAT 97
--- OUTSIDE RECORDS SUMMARY | 2024-09-02 14:27 | XMS_ITS | Clinical Summary ---
Author Organization [facility] Address [address] [place] [address] Phone Care Team Providers Care Special Agent In Charge Name Role Phone Cornel Chavez Primary Care Provider Allergies No known active allergies Medications silver sulfADIAZINE (SILVADENE, SSD) 1 % cream Apply topically to nail bed daily 03/03/20 23 Active lurasidone (LATUDA) 120 mg tablet Take by mouth. Active melatonin 3 mg tablet Take 2 Tablets by mouth. Active memantine (NAMENDA) 10 mg tablet Take 1 Tablet by mouth 2 times daily. Active FLUoxetine (PROzac) 40 mg capsule Take 2 Capsules by mouth daily. Active risperiDONE (RisperDAL) 4 mg tablet Take 1 Tablet by mouth 2 times daily. Active benzonatate (TESSALON) 100 mg capsule Take 1 Capsule by mouth 3 times daily as needed. Active minocycline (MINOCIN,DYNACIN ) 100 mg capsule 08/10/19 25 Active mupirocin (BACTROBAN) 2 % ointment 07/22/19 25 Active triamcinolone (KENALOG) 0.1 % cream 07/22/19 25 Active divalproex (DEPAKOTE ER) 500 mg 24 hr tablet 08/24/19 25 Active fluticasone propionate (FLONASE) 50 mcg/actuation nasal spray 08/04/19 25 Active hydrOXYzine HCL (ATARAX) 50 mg tablet 08/24/19 25 Active traZODone (DESYREL) 150 mg tablet 08/24/19 25 Active diazePAM (VALIUM) 5 mg tablet 08/14/19 25 Active divalproex sodium (DEPAKOTE ORAL) Take 2,000 mg by mouth. 025 Discontinued trazodone HCl (DESYREL ORAL) Take 150 mg by mouth. 025 Discontinued diazePAM (VALIUM) 2 mg tablet Take 2 Tablets by mouth every 8 hours as needed. 025 Discontinued hydroxyzine HCl (ATARAX ORAL) Take 25 mg by mouth. 025 Discontinued fluticasone propionate (FLONASE NASL) by Nasal route. 025 Discontinued Active Problems Problem Noted Date Diagnosed Date Anal fistula 02/19/2024 Bunion 02/19/2024 Jalyn onychomycosis 02/19/2024 alcohol syndrome 02/19/2024 Flat feet, bilateral 02/19/2024 Obsessive compulsive disorder 02/19/2024 Rectal bleeding 02/19/2024 Encounters Date Type Department Care Team Description 08/24/2024 3:30 PM EDT Office Visit Orthopedic Surgery [address] [id number] Clifton Dean, DPM Ingrowing nail (Primary Dx); Dermatophytosis of [...] 05/24/2024 4:03 PM EST Plan of Treatment Health Maintenance Due Date Last Done Comments Hepatitis B Vaccines (1 of 3 - 19+ 3-dose series) 1998 Cholesterol Screening (Lipid Panel) 06/06/2023 Colorectal Cancer Screening: Colonoscopy 06/06/2023 Depression Screening 06/06/2023 HIV Screening 06/06/2023 Hepatitis C Screening 06/06/2023 Medicare Annual Wellness Visit 06/06/2023 Social Influencers of Health Screening 06/06/2023 COVID-19 Vaccine ( season) 2024 05/17/2023, 05/24/2022, 03/30/2021, Additional history exists Influenza Vaccine (Season Ended) 2025 05/17/2023, 03/12/2022 DTaP,Tdap,and Td Vaccines (2 - Td or [...] age to complete this topic Meningococcal B Vaccine Aged Out No l onger eligible based on patient's age to complete [...] patient's age to complete this topic Insurance [facility] MEDICARE Member Subscriber Plan / Payer (Ef fective 2024-Present) Name:Shadi Fowler Relation to Subscriber:Self Name:Shadi Fowler Payer ID:[id number] Group ID:[id number] Type:Not on file Address: [facility] [address] [id number] Care Teams Special Agent In Charge Relationship Specialty Start Date End Date Cornel Chavez PA [address] [place] [id number] PCP - General 01/17/23
== END 2024-09-02 14:49 | disposition home or self-care (01) ==
PROVIDERS: Visit Provider Nurse Practitioner Family
DX: Z13.9 Encounter for screening, unspecified (principal); R39.11 Hesitancy of micturition

== ENCOUNTER → 2024-09-02 12:11 | Outpatient (BNVA) | payer OTHER, SELFPAY | PROVIDERS: Visit Provider Nurse Practitioner Family | DX: R39.11 Hesitancy of micturition (principal) | CPT/HCPCS: 81003; 99212 ==

== ENCOUNTER 2024-09-19 15:14 | Emergency (ER) | payer OTHER, SELFPAY ==
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
[2024-09-19 15:22] VITALS: BP 160/74; PULSE 98; O2SAT 98
[2024-09-19 15:26] VITALS: BP 137/88; PULSE 98; RESP 20; TEMP 36.6; O2SAT 97; BMI 37.3
[2024-09-19 17:15] LABS: MANUAL DIFF FLAG NO
[2024-09-19 17:25] LABS: Basophils Percent Auto 0.4 % (0-2); Eosinophils Absolute Auto 0.1 X10*3/uL (0.0-0.4); Eosinophils Percent Auto 1.5 % (0-4); Hematocrit 44.1 % (42.0-52.0); Hemoglobin 15.3 g/dl (14.0-18.0); Imm Gran Abs Auto 0.06 X10*3/uL (0.00-0.03); Imm Gran Pct Auto 0.8 % (0.0-0.4); Lymphocytes Absolute Auto 2.6 X10*3/uL (1.2-4.9); Lymphocytes Percent Auto 32.7 % (20-40); Mean Corpuscular HGB Conc 34.7 g/dl (31.0-36.0); Mean Corpuscular Hemoglobin 30.3 pg (27.0-33.0); Mean Corpuscular Volume 87.3 fL (80.0-98.0); Mean Platelet Volume 9.3 fL (9.4-12.4); Monocytes Percent Auto 13.2 % (2-11); Neutrophils Absolute Auto 4.1 x10*3/uL (2.0-8.3); Neutrophils Percent Auto 51.4 % (45-73); Platelet Count 258 X10*3/uL (160-400); Red Blood Count 5.05 X10*6/uL (4.60-5.80); Red Cell Distribution Width 11.9 % (11.0-16.0); White Blood Count 7.9 X10*3/uL (4.8-10.8)
[2024-09-19 17:33] LABS: Alanine Aminotransferase 34 U/L (0-40); Alkaline Phosphatase 81 U/L (39-117); Anion Gap 12 (12-20); Aspartate Amino Transferase 26 U/L (5-37); Bilirubin Total 0.2 mg/dL (0.0-1.0); Blood Urea Nitrogen 9 mg/dL (9-16); Calcium 9.3 mg/dL (8.4-10.2); Carbon Dioxide 31 mmol/L (22-29); Chloride 101 mmol/L (96-108); Creatinine Clr Calc Pharmacy 152.9; Estimated Glomerular Filt Rate > 60; Ethanol < 10 mg/dL; Glucose Random 157 mg/dL (60-115); Potassium 4.2 mmol/L (3.3-5.1); Sodium 140 mmol/L (135-145)
[2024-09-19 17:51] LABS: Influenza A PCR NEGATIVE (Negative); Influenza B PCR NEGATIVE (Negative); Resp Syncy Virus RNA Qual PCR NEGATIVE (Negative); SARS COV2 PCR INHOUSE NEGATIVE (Negative)
[2024-09-19 19:37] VITALS: RESP 18
[2024-09-19 19:45] LABS: Appearance Urine Clear; Color Urine Dark Yellow; Glucose Urine UA Negative (Negative); Leukocyte Esterase Urine Negative (Negative); Nitrite Urine Negative (Negative); PH 5.5 (5.0-9.0); Specific Gravity - Urine >= 1.030 (1.005-1.025); Urine Blood Negative (Negative); Urine Ketones Trace mg/dL (Negative); Urine Protein Negative (Neg-Trace)
[2024-09-19 19:58] LABS: Amphetamine Screen Urine Not Detected (Not Detect); Barbiturates, Urine Not Detected (Not Detect); Benzodiazepines Screen Urine POSITIVE (Not Detect); Buprenorphine Scr Not Detected (Not Detect); Cannabinoid Screen Urine Not Detected (Not Detect); Cocaine Screen Urine Not Detected (Not Detect); Fentanyl, urine Not Detected (Not Detect); Methadone Screen, Urine Not Detected (Not Detect); Opiate Screen Urine Not Detected (Not Detect); Oxycodone Screen Urine Not Detected (Not Detect); Phencyclidine Screen Urine Not Detected (Not Detect)
[2024-09-19 20:47] VITALS: BP 148/87; PULSE 95; RESP 20; TEMP 36.6; O2SAT 98
== END 2024-09-19 21:30 | disposition home or self-care (01) ==
PROVIDERS: Registered Nurse Emergency; Emergency Provider Emergency Medicine Emergency Medical Services; PCP Physician Assistant
DX: F63.81 Intermittent explosive disorder (principal); F81.81 Disorder of written expression; F41.9 Anxiety disorder, unspecified; Z79.899 Other long term (current) drug therapy; Z03.818 Encounter for observation for suspected exposure to other biological agents ruled out; Z87.891 Personal history of nicotine dependence
CPT/HCPCS: 0241U; 80053; 80307; 81003; 85025; 99283; 99284; S9485

== ENCOUNTER 2024-10-06 13:53 | Outpatient (AMB) | payer OTHER, SELFPAY ==
[2024-10-06 14:03] VITALS: BP 112/78; PULSE 98; TEMP 36.3; O2SAT 97; BMI 35.3
--- NOTE | 2024-10-06 14:03 | MHC.PC.OV ---
Vital Signs 10/06/24 14:03 Height 6 ft 2 in Weight 275 lb 2 oz BMI 35.3 BP 112/78 Blood Pressure Location Lt brachial Position Sitting Pulse 98 Pulse Source Pulse Oximeter Temp 97.3 F Temp Source Temporal Artery Scan Pulse Oximetry (%) 97 Oxygen Delivery Method Room Air Intake Visit Reasons: 3mth f/u Enrollment Processor Required: No Accompanied by: Program Staff Allergies escitalopram [From Lexapro] Adverse Reaction (Verified 10/06/24 14:18) Agitated Medication List - Last Reconciled 10/06/24 by Cornel Chavez PA-C acetaminophen 325 mg PO Q6H PRN 30 days bacitracin 1 appl See Protocol topical QID 7 days bismuth subsalicylate 524 mg (30 mL) PO QID PRN 30 days diazepam 5 mg PO TID PRN divalproex ER 2,000 mg (4 x 500 mg) PO BEDTIME 30 days fluoxetine 100 mg (5 x 20 mg) PO DAILY 30 days fluticasone propionate 50 mcg/actuation (Flonase Allergy Relief) 1 spray intranasal BID PRN 30 days hydroxyzine HCl 50 mg PO BEDTIME lurasidone 120 mg PO DAILY melatonin 6 mg (2 x 3 mg) PO BEDTIME 90 days memantine 1 tab PO BID minocycline 100 mg PO BID risperidone 4 mg PO BID trazodone 150 mg PO BEDTIME vitamin E (dl, acetate) 180 mg PO DAILY 90 days Tobacco use date assessed: 07/07/24 Dental Screening Dental Screen Date: 07/07/24 HPI 3mth f/u HPI Details Patient is a 44 year male here today for follow up visit.? Patient has a past medical history significant for OCD, obesity alcohol syndrome, borderline high cholesterol intermittent explosive disorder.? 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 Recently seen at the [facility] for acute agitation had an altercation with a staff member. Shadi is also presenting with a productive cough. He reports that the cough started approximately a week ago and is most prominent in the mornings, particularly after a shower. The patient describes the expectorated sputum as green and thick. He has a history of smoking but has since quit. He expressed concern about the possibility of pneumonia or bronchitis, noting exposure to a person with strep throat recently. .. OCD/ intermittent explosive disorder: Continues to follow a psychiatrist (Dr. Nguyen). Continues to have some skin picking behaviors especially on his face. Does have bacitracin available to him to use on skin lesions and infections. .. Borderline high cholesterol: Has a history of borderline high cholesterol, advised to do fasting labs to re evaluate. Has been trying to eat healthier snacks at home .. Obesity: Have noted elevations in his weight. Today's BMI is 39, may be attributed to his psychiatric medications and inactivity. [facility] Medical History Urinary hesitancy Cellulitis Flat feet, bilateral Insomnia COVID-19 alcohol syndrome Anal fistula Jalyn onychomycosis Screening for hyperlipidemia Screening for diabetes mellitus Bunion Obsessive compulsive disorder Rectal bleeding Surgical History No pertinent past surgical history Family History Mother No problems noted. Father No problems noted. Other Substance use disorder Social History Household Members: Other Household Members Other:: snf Housing: Other Housing Other:: Retirement Do you presently have visiting nurse or other home services: Yes Unable to assess alcohol history related to: Unknown Alcohol intake: never Comment: Refuses to wear red socks stating he does not have seizure d/o Patient Tobacco Use Status: Former Tobacco user Tobacco use type: Cigarette Years Smoked: 17 years old e-Cigarette/Vaping Use: Never Used Second Hand Smoke Exposure: Yes service: No Current occupational status: disabled Sexual orientation: Lesbian/Blackwell/Homosexual Cognitive needs: No Hearing needs: No Vision needs: No Questionnaire PHQ-9 Over the last 2 weeks, how often have you been bothered by any of the following problems? 1. Little interest or pleasure in doing things: not at all 2. Feeling down, depressed, or hopeless: not at all 3. Trouble falling or staying asleep, or sleeping too much: not at all 4. Feeling tired or having little energy: not at all 5. Poor appetite or overeating: not at all 6. Feeling bad about yourself - or that you are a failure or have let yourself or your family down: not at all 7. Trouble concentrating on things, such as reading the newspaper or watching television: not at all 8. Moving or speaking so slowly that other people could have noticed. Or the opposite - being so fidgety or restless that you have been moving around a lot more than usual: not at all 9. Thoughts that you would be better off or of hurting yourself in some way: not at all Total score: 0 Depression Screening Interpretation: Negative Depression Screening Done: Yes 20632 - PHQ-9 Billing: Yes Source: Developed by Drs. Antonio Hernandez, Nelida Catalan, Han Humphrey and colleagues, with an educational robbie from [employer]. Thrive Questionnaire Date Thrive assessed: 07/07/24 I am a: Patient What is your living situation today?: I have a steady place to live Within the past 12 months, did the food you bought not last and you didn't have the money to get more?: Never true Within the past 12 months, did you worry whether your food would run out before you got money to buy more?: Never true Do you have trouble paying for medicines?: No Do you have trouble getting transportation to medical appointments?: No Do you have trouble paying your heating and electricity bill?: No Do you have trouble taking care of your child, family member or friend?: No Do you have trouble with day-to-day activities such as bathing, preparing meals, shopping, managing finances, etc.?: Yes Are you currently unemployed and looking for a job?: No Are you interested in more education?: No Please select the resources that you would like help with: None Currently or been in a relationship where the following occur: No concerns reported THRIVE Score: 0 AUDIT C Alcohol Use Questionnaire (AUDIT-C) 1. How often do you have a drink containing alcohol?: Never Total Score: 0 SHRUTI-7 AMB Questionnaire SHURTI-7 Date SHRUTI - 7 assessed: 07/07/24 Feeling nervous, anxious, or on edge: 3 = Nearly every day Not being able to stop or control worryin = Not at all Worrying too much about different things: 0 = Not at all Trouble relaxin = Not at all Being so restless that it is hard to sit still: 0 = Not at all Becoming easily annoyed or irritable: 0 = Not at all Feeling afraid as if something awful might happen: 0 = Not at all Total SHRUTI-7 score (0-4 normal; 5-9 mild; 10-14 moderate; 15-21 severe): 3 Source: Developed by Drs. Antonio Hernandez, Nelida Catalan, Han Humphrey and colleagues, with an educational robbie from [employer]. SHRUTI-7 Assessment Billing SHURTI-7 Assessment Tool: SHRUTI-7 Assessment 75864 Review of Systems Const Denies headache(s) Eyes Denies loss of vision ENT Denies vertigo, Denies dizziness, Denies headache(s) and Denies sore throat Card Denies chest pain, Denies leg edema and Denies lightheadedness Resp Denies cough, Denies hemoptysis and Denies wheezing GI Denies abdominal pain, Denies melena, Denies constipation, Denies diarrhea and Denies vomiting Denies dysuria, Denies urinary frequency and Denies urinary urgency Musc Denies arthralgias, Denies joint swelling, Denies numbness and Denies tingling Neuro Denies Abnormal speech present, Denies behavioral changes, Denies vertigo, Denies dizziness, Denies headache(s), Denies loss of vision, Denies memory loss, Denies numbness and Denies tingling Psych Denies anxiety, Denies behavioral changes, Denies depression, Denies memory loss and Denies panic attacks Bobby/Lymph Denies easy bleeding and Denies easy bruising Aller/Immun Denies wheezing Physical exam (Primary Care) Vital Signs: Last Vital Signs Temp 97.3 F 10/06/24 14:03 Pulse 98 10/06/24 14:03 BP 112/78 10/06/24 14:03 Pulse Ox 97 10/06/24 14:03 Oxygen Delivery Method Room Air 10/06/24 14:03 BMI result Body Mass Index 35.3 BMI Assessment/Plan discussion: High BMI High, discussed plan: lifestyle, weight reduction, dietary and physical activity Tobacco/Smoking Status: Tobacco use Status Tobacco use date assessed 07/07/24 10/06/24 14:04 Patient Tobacco Use Status Former Tobacco user 10/06/24 14:04 Tobacco use type Cigarette 10/06/24 14:04 e-Cigarette/Vaping Use Never Used 10/06/24 14:04 PHQ-9: PHQ-9 Score PHQ-9: Total score 0 10/06/24 14:33 Depression Screening Interpretation: Negative Thrive Assessment: Date of Thrive Assessment Date Thrive assessed 07/07/24 10/06/24 14:04 Currently or been in a relationship where the following occur: No concerns reported Const General: healthy appearing, no acute distress, alert and awake Nutritional Appearance: well nourished Orientation/consciousness: oriented to person, oriented to place and oriented to time HENMT Ears: TM's normal bilaterally General nose exam: Normal nasal mucous membranes and turbinates present Eyes Conjunctivae: conjunctivae normal Sclerae: sclerae normal Pupils: Equal, round and reactive pupils present Neck Neck: Yes no lymphadenopathy and Yes no JVD Thyroid: Thyroid normal Carotids: no bruits Resp Effort & Inspection: normal respiratory effort and not tachypneic Auscultation: no crackles, no rales, no rhonchi and no wheezes Cardio Rate: regular rate Rhythm: regular rhythm Heart sounds: no murmurs and normal S1 and S2 GI Palpation (GI): Soft to palpation, nontender, no hepatomegaly and no splenomegaly Auscultation: normal bowel sounds Skin General skin exam: no rashes or lesions noted and dry skin Neuro General: oriented to person, oriented to place and oriented to time Cranial nerves: Yes Equal, round and reactive pupils present Speech: No Abnormal speech present Gait exam (Neuro): Normal gait present Motor exam (neuro): no tremor noted Extrem Right upper extremity: full ROM Left upper extremity: full ROM Right lower extremity: full ROM; no edema Left lower extremity: full ROM; no edema Psych Mental Status: mental status grossly normal Speech and movement: Normal speech and movement present Affect: normal affect Attitude: cooperative Thought process: Normal thought process present Coding Level of Care Code Est Pt Level 3 (55950) Diagnoses Bronchitis J40 Impaired glucose metabolism R73.09 Borderline high cholesterol E78.9 Mixed obsessional thoughts and acts F42.2 Obsessive-compulsive disorder type: mixed obsessional thoughts and acts Class 2 obesity E66.812 Additional Codes SHRUTI-7 Assessment Billing - SHRUTI-7 Assessment Tool: SHRUTI-7 Assessment 62112 ([id number]) PHQ-9 - 83608 - PHQ-9 Billing: Yes ([id number]) Assessment & Plan Assessment & Plan (1) Bronchitis: Code(s): J40 - Bronchitis, not specified as acute or chronic Category: Medical Plan: Patient presenting with signs and symptoms of bronchitis. Pulmonary exam fairly benign today. Will send for chest x-ray and if notable infiltrate will treat with antibiotics. (2) Impaired glucose metabolism: Code(s): R73.09 - Other abnormal glucose Category: Medical Plan: Patient's most recent fasting blood sugar elevated in A1c in prediabetic range at 5.9. Will continue to try to work on dietary modifications though patient is somewhat apprehensive on this. Will recheck fasting sugar and A1c (3) Borderline high cholesterol: Code(s): E78.9 - Disorder of lipoprotein metabolism, unspecified Category: Medical Plan: Patient's most recent lipid panel showing borderline high cholesterol and LDL. Unfortunately has not been adherent to good eating habits. Has gained weight since last office visit. Advised on being more physically active adapting to better eating habits (4) OCD (obsessive compulsive disorder): Code(s): F42.9 - Obsessive-compulsive disorder, unspecified Category: Medical Qualifiers: Obsessive-compulsive disorder type: mixed obsessional thoughts and acts Qualified Code(s): F42.2 - Mixed obsessional thoughts and acts Plan: Continues to live in a halfway, continues to follow Dr. Nguyen his psychiatrist in his managing his mental health medications (5) Class 2 obesity: Code(s): E66.812 - Obesity, class 2 Category: Medical Plan: Have noted a bit of weight loss since last office visit. Patient does admit to being a little more active as of late. No changes in his psychiatric medications recently. Patient does understand his BMI is over 35 and should be working on being more physically active and adapting to better eating habits to reduce his weight Orders: Orders XR chest 2V 10/06/24 J40 - Bronchitis, not specified as acute or chronic
--- OUTSIDE RECORDS SUMMARY | 2024-10-06 14:50 | XMS_ITS | Clinical Summary ---
Author Organization [facility] Address [address] [place] [address] Phone Care Team Providers Care Genetics Teacher Name Role Phone Cornel Chavez Primary Care Provider Allergies No known active allergies Medications silver sulfADIAZINE (SILVADENE, SSD) 1 % cream Apply topically to nail bed daily 3 Active lurasidone (LATUDA) 120 mg tablet Take [...] 3 times daily as needed. Active minocycline (MINOCIN,DYNACIN) 100 mg capsule 5 Active mupirocin (BACTROBAN) 2 % ointment 5 Active triamcinolone (KENALOG) 0.1 % cream 5 Active divalproex (DEPAKOTE ER) 500 mg 24 hr tablet 5 Active fluticasone propionate (FLONASE) 50 mcg/actuation nasal spray 5 Active hydrOXYzine HCL (ATARAX) 50 mg tablet 5 Active traZODone (DESYREL) 150 mg tablet 5 Active diazePAM (VALIUM) 5 mg tablet 5 Active Active Problems Problem Noted Date Diagnosed Date Anal fistula 02/19/2024 Bunion 02/19/2024 Jalyn onychomycosis 02/19/2024 alcohol syndrome 02/19/2024 Flat feet, bilateral 02/19/2024 Obsessive compulsive disorder 02/19/2024 Rectal bleeding 02/19/2024 Encounters Date Type Department Care Team Description 08/24/2024 3:30 PM EDT Office Visit Orth[facility] Surgery - [place] [address] [place] [id number] Clifton Dean, DPDestin Ingrowing nail (Primary Dx); Dermatophytosis of nail; [...] patient's age to complete this topic Insurance [employer] MEDICARE Member Subscriber Plan / Payer (Ef fective 2024-Present) Name:Shadi Fowler Relation to Subscriber:Self Name:Shadi Fowler Payer ID:[id number] Group ID:[id number] Type:Not on file Address: [place] [address] [address] [id number] Care Teams Genetics Teacher Relationship Specialty Start Date End Date Cornel Chavez PA [address] [place] [phone] PCP - General 01/17/23
== END 2024-10-06 14:33 | disposition home or self-care (01) ==
LOC: HO.HMCH 13:54
PROVIDERS: PCP Physician Assistant; Visit Provider Physician Assistant
DX: J40 Bronchitis, not specified as acute or chronic (principal); E66.812 Obesity, class 2; Z68.35 Body mass index [BMI] 35.0-35.9, adult; R73.09 Other abnormal glucose; E78.9 Disorder of lipoprotein metabolism, unspecified; F42.2 Mixed obsessional thoughts and acts

== ENCOUNTER → 2024-10-06 13:53 | Outpatient (BNVA) | payer OTHER, SELFPAY | PROVIDERS: PCP Physician Assistant; Visit Provider Physician Assistant | DX: R73.09 Other abnormal glucose (principal); J40 Bronchitis, not specified as acute or chronic; E78.9 Disorder of lipoprotein metabolism, unspecified; F42.2 Mixed obsessional thoughts and acts; E66.812 Obesity, class 2; Z68.35 Body mass index [BMI] 35.0-35.9, adult; F42.9 Obsessive-compulsive disorder, unspecified; F63.81 Intermittent explosive disorder | CPT/HCPCS: 96127; 99212 ==

== ENCOUNTER 2024-11-13 11:24 | Emergency (ER) | payer OTHER, SELFPAY ==
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
[2024-11-13 11:31] VITALS: BP 138/86; PULSE 81; O2SAT 95
[2024-11-13 11:33] VITALS: BP 124/88; PULSE 80; RESP 18; TEMP 36.9; O2SAT 93; BMI 38.5
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
[2024-11-13 11:57] LABS: MANUAL DIFF FLAG NO
[2024-11-13 11:59] LABS: Hematocrit 45.3 % (42.0-52.0); Hemoglobin 15.7 g/dl (14.0-18.0); Imm Gran Abs Auto 0.08 X10*3/uL (0.00-0.03); Imm Gran Pct Auto 0.9 % (0.0-0.4); Lymphocytes Absolute Auto 2.1 X10*3/uL (1.2-4.9); Mean Corpuscular HGB Conc 34.7 g/dl (31.0-36.0); Mean Corpuscular Hemoglobin 30.1 pg (27.0-33.0); Mean Corpuscular Volume 86.9 fL (80.0-98.0); NRBC Abs Auto 0.000 X10*3/uL (0.0-0.012); NRBC Pct Auto 0.0 /100WBC (0.0-0.2); Platelet Count 261 X10*3/uL (160-400); Red Blood Count 5.21 X10*6/uL (4.60-5.80); White Blood Count 8.7 X10*3/uL (4.8-10.8)
[2024-11-13 12:09] LABS: Cannabinoid Screen Urine Not Detected (Not Detect)
[2024-11-13 12:16] LABS: Albumin Level 4.4 g/dL (3.5-5.0); Alkaline Phosphatase 90 U/L (39-117); Anion Gap 12 (12-20); Aspartate Amino Transferase 30 U/L (5-37); Blood Urea Nitrogen 13 mg/dL (9-16); Calcium 9.5 mg/dL (8.4-10.2); Carbon Dioxide 33 mmol/L (22-29); Chloride 102 mmol/L (96-108); Creatinine Clr Calc Pharmacy 152.1; Estimated Glomerular Filt Rate > 60; Potassium 4.3 mmol/L (3.3-5.1); Sodium 143 mmol/L (135-145); Total Protein 7.6 g/dL (6.5-8.0)
[2024-11-13 12:31] LABS: Alanine Aminotransferase 38 U/L (0-40)
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
== END 2024-11-13 14:33 | disposition home or self-care (01) ==
PROVIDERS: Registered Nurse Emergency; Emergency Provider Emergency Medicine
DX: M25.462 Effusion, left knee (principal); M25.562 Pain in left knee; R68.84 Jaw pain; F41.9 Anxiety disorder, unspecified; F42.9 Obsessive-compulsive disorder, unspecified; F63.81 Intermittent explosive disorder; Z79.899 Other long term (current) drug therapy
CPT/HCPCS: 36415; 70450; 70486; 72125; 73564; 80053; 80307; 85025; 99284

== ENCOUNTER → 2024-11-13 11:39 | Outpatient (BNV) | payer OTHER, SELFPAY | PROVIDERS: Emergency Provider Emergency Medicine; Visit Provider Radiology Vascular & Interventional Radiology | DX: M50.30 Other cervical disc degeneration, unspecified cervical region (principal); R68.84 Jaw pain; G96.198 Other disorders of meninges, not elsewhere classified; M17.12 Unilateral primary osteoarthritis, left knee | CPT/HCPCS: 70450; 70486; 72125; 73564 ==

== ENCOUNTER 2025-01-25 13:48 | Outpatient (AMB) | payer OTHER, SELFPAY ==
--- NOTE | 2025-01-25 13:53 | MHC.PC.OV ---
Vital Signs 01/25/25 13:54 Height 6 ft 2 in Weight 285 lb 2 oz BMI 36.6 BP 130/66 Blood Pressure Location Lt brachial Position Sitting Pulse 90 Pulse Source Pulse Oximeter Temp 97.3 F Temp Source Temporal Artery Scan Pulse Oximetry (%) 98 Oxygen Delivery Method Room Air Intake Visit Reasons: f/u IGM/ HLD Intake Note: Patient is here to follow up on IGM, HLD. Scagliola Mechanic Required: No Program/Music Director: Present Accompanied by: STAFF Allergies escitalopram (From [facility] Directions) Adverse Reaction (Verified 01/25/25 14:30) Agitated Medication List - Last Reconciled 01/25/25 by Cornel Chavez PA-C acetaminophen 325 mg PO Q6H PRN 30 days bacitracin 1 appl See Protocol topical QID 7 days bismuth subsalicylate 524 mg (30 mL) PO QID PRN 30 days brexpiprazole (Rexulti) 4 mg PO DAILY diazepam 5 mg PO TID PRN diazepam (Valium) 5 mg PO DAILY PRN divalproex ER 2,000 mg (4 x 500 mg) PO BEDTIME 30 days fluoxetine 80 mg PO DAILY fluticasone propionate 50 mcg/actuation (Flonase Allergy Relief) 1 spray intranasal BID PRN 30 days hydroxyzine HCl 50 mg PO BEDTIME lurasidone 80 mg PO DAILY melatonin 6 mg (2 x 3 mg) PO BEDTIME 90 days memantine 1 tab PO BID minocycline 100 mg PO BID risperidone 4 mg PO BID trazodone 150 mg PO BEDTIME vitamin E (dl, acetate) 180 mg PO DAILY 90 days Tobacco use date assessed: 01/25/25 Dental Screening Dental Screen Date: 07/07/24 HPI f/u IGM/ HLD HPI Details Patient is a 44 year male here today for follow up visit.? Patient has a past medical history significant for OCD, obesity alcohol syndrome, borderline high cholesterol intermittent explosive disorder.? He presents today with director of group sales. Concern---> skin infections on face, often picking that his face which is making matters worse. Now seeing a meat grinder whom will be making some adjustments in his topical treatments. Bacitracin has been discontinued .. OCD/ intermittent explosive disorder: Continues to follow a psychiatrist (Dr. Nguyen). Continues to have some skin picking behaviors especially on his face. .. Borderline high cholesterol: Has a history of borderline high cholesterol, advised to do fasting labs to re evaluate. Has been trying to eat healthier snacks at home .. Class 2 obesity: Unfortunately has not not a great diet and he does somewhat understand this.. Today's BMI is 36, may be attributed to his psychiatric medications and inactivity as well.. [facility] Medical History Rectal bleeding Urinary hesitancy Cellulitis Flat feet, bilateral Insomnia COVID-19 alcohol syndrome Anal fistula Jalyn onychomycosis Screening for hyperlipidemia Screening for diabetes mellitus Bunion Obsessive compulsive disorder Surgical History No pertinent past surgical history Family History Mother No problems noted. Father No problems noted. Other Substance use disorder Social History Household Members: Other Household Members Other:: senior care Housing: Other Housing Other:: [facility] Do you presently have visiting nurse or other home services: Yes Unable to assess alcohol history related to: Unknown Alcohol intake: never Comment: Refuses to wear red socks stating he does not have seizure d/o Patient Tobacco Use Status: Former Tobacco user Tobacco use type: Cigarette Years Smoked: 17 years old e-Cigarette/Vaping Use: Never Used Second Hand Smoke Exposure: Yes service: No Current occupational status: disabled Sexual orientation: Lesbian/Blackwell/Homosexual Cognitive needs: No Hearing needs: No Vision needs: No Questionnaire Thrive Questionnaire Date Thrive assessed: 10/06/24 I am a: Patient What is your living situation today?: I have a steady place to live Within the past 12 months, did the food you bought not last and you didn't have the money to get more?: Never true Within the past 12 months, did you worry whether your food would run out before you got money to buy more?: Never true Do you have trouble paying for medicines?: No Do you have trouble getting transportation to medical appointments?: No Do you have trouble paying your heating and electricity bill?: No Do you have trouble taking care of your child, family member or friend?: No Do you have trouble with day-to-day activities such as bathing, preparing meals, shopping, managing finances, etc.?: Yes Are you currently unemployed and looking for a job?: No Are you interested in more education?: No Please select the resources that you would like help with: None Currently or been in a relationship where the following occur: No concerns reported THRIVE Score: 0 SHRUTI-7 AMB Questionnaire SHRUTI-7 Date SHRUTI - 7 assessed: 07/07/24 Source: Developed by Drs. Antonio Hernandez, Nelida Catalan, Han Humphrey and colleagues, with an educational robbie from [employer]. Review of Systems Const Denies headache(s) Eyes Denies loss of vision ENT Denies vertigo, Denies dizziness, Denies headache(s) and Denies sore throat Card Denies chest pain, Denies leg edema and Denies lightheadedness Resp Denies cough, Denies hemoptysis and Denies wheezing GI Denies abdominal pain, Denies melena, Denies constipation, Denies diarrhea and Denies vomiting Denies dysuria, Denies urinary frequency and Denies urinary urgency Musc Denies arthralgias, Denies joint swelling, Denies numbness and Denies tingling Neuro Denies Abnormal speech present, Denies behavioral changes, Denies vertigo, Denies dizziness, Denies headache(s), Denies loss of vision, Denies memory loss, Denies numbness and Denies tingling Psych Denies anxiety, Denies behavioral changes, Denies depression, Denies memory loss and Denies panic attacks Bobby/Lymph Denies easy bleeding and Denies easy bruising Aller/Immun Denies wheezing Physical exam (Primary Care) Vital Signs: Last Vital Signs Temp 97.3 F 01/25/25 13:54 Pulse 90 01/25/25 13:54 BP 130/66 01/25/25 13:54 Pulse Ox 98 01/25/25 13:54 Oxygen Delivery Method Room Air 01/25/25 13:54 BMI result Body Mass Index 36.6 BMI Assessment/Plan discussion: High BMI High, discussed plan: lifestyle, weight reduction, dietary and physical activity Tobacco/Smoking Status: Tobacco use Status Tobacco use date assessed 01/25/25 01/25/25 13:55 Patient Tobacco Use Status Former Tobacco user 01/25/25 13:55 Tobacco use type Cigarette 01/25/25 13:55 e-Cigarette/Vaping Use Never Used 01/25/25 13:55 Thrive Assessment: Date of Thrive Assessment Date Thrive assessed 10/06/24 01/25/25 13:55 Currently or been in a relationship where the following occur: No concerns reported Const Other: OBESE General: healthy appearing, no acute distress, alert and awake Nutritional Appearance: well nourished Orientation/consciousness: oriented to person, oriented to place and oriented to time HENMT Ears: TM's normal bilaterally General nose exam: Normal nasal mucous membranes and turbinates present Eyes Conjunctivae: conjunctivae normal Sclerae: sclerae normal Pupils: Equal, round and reactive pupils present Neck Neck: Yes no lymphadenopathy and Yes no JVD Thyroid: Thyroid normal Carotids: no bruits Resp Effort & Inspection: normal respiratory effort and not tachypneic Auscultation: no crackles, no rales, no rhonchi and no wheezes Cardio Rate: regular rate Rhythm: regular rhythm Heart sounds: no murmurs and normal S1 and S2 GI Palpation (GI): Soft to palpation, nontender, no hepatomegaly and no splenomegaly Auscultation: normal bowel sounds Skin General skin exam: no rashes or lesions noted and dry skin Neuro General: oriented to person, oriented to place and oriented to time Cranial nerves: Yes Equal, round and reactive pupils present Speech: No Abnormal speech present Gait exam (Neuro): Normal gait present Motor exam (neuro): no tremor noted Extrem Right upper extremity: full ROM Left upper extremity: full ROM Right lower extremity: full ROM; no edema Left lower extremity: full ROM; no edema Psych Mental Status: mental status grossly normal Speech and movement: Normal speech and movement present Affect: normal affect Attitude: cooperative Thought process: Normal thought process present Coding Level of Care Code Est Pt Level 4 (30738) Diagnoses Impaired glucose metabolism R73.09 Borderline high cholesterol E78.9 Mixed obsessional thoughts and acts F42.2 Obsessive-compulsive disorder type: mixed obsessional thoughts and acts Class 2 obesity E66.812 Assessment & Plan Assessment & Plan (1) Impaired glucose metabolism: Code(s): R73.09 - Other abnormal glucose Category: Medical Plan: Patient's most recent fasting blood sugar elevated in A1c in prediabetic range at 5.9. Will continue to try to work on dietary modifications though patient is somewhat apprehensive on this. Will recheck fasting sugar and A1c (2) Borderline high cholesterol: Code(s): E78.9 - Disorder of lipoprotein metabolism, unspecified Category: Medical Plan: Patient's most recent lipid panel showing borderline high cholesterol and LDL. Unfortunately has not been adherent to good eating habits. Has gained weight since last office visit. Advised on being more physically active adapting to better eating habits (3) OCD (obsessive compulsive disorder): Code(s): F42.9 - Obsessive-compulsive disorder, unspecified Category: Medical Qualifiers: Obsessive-compulsive disorder type: mixed obsessional thoughts and acts Qualified Code(s): F42.2 - Mixed obsessional thoughts and acts Plan: Continues to live in a fpc, continues to follow Dr. Nguyen his psychiatrist in his managing his mental health medications/ OF NOTE HIS LATUDA HIS PSYCHIATRIST HAS BEEN REDUCING HIS LATUDA DOSE.. (4) Class 2 obesity: Code(s): E66.812 - Obesity, class 2 Category: Medical Plan: Have noted a bit of weight loss since last office visit. Patient does admit to being a little more active as of late. No changes in his psychiatric medications recently. Patient does understand his BMI is over 35 and should be working on being more physically active and adapting to better eating habits to reduce his weight Medications: Refilled bacitracin 1 appl See Protocol topical QID 14 grams 3RF for cuts. abrasions ect.. 7 days
[2025-01-25 13:54] VITALS: BP 130/66; PULSE 90; TEMP 36.3; O2SAT 98; BMI 36.6
--- OUTSIDE RECORDS SUMMARY | 2025-01-25 17:41 | XMS_ITS | Clinical Summary ---
Author Organization 175 [facility] Address [address] [place] [address] Phone Care Team Providers Care Singe Machine Operator Name Role Phone Cornel Chavez Primary Care [...] Obsessive compulsive disorder 02/19/2024 Rectal bleeding 02/19/2024 Social History Tobacco Use Types Packs/Day Years [...] Care Team (Late st Contact Info) Description 02/24/2025 1:30 PM EDT Office Visit Orthopedic Surgery - [place] [address] [phone] Clifton Dean, DPM [address] [phone] Health Maintenance Due Date Last Done Comments Hepatitis B Vaccines (1 of 3 - 19+ 3-dose series) 1998 Cholesterol Screening (Lipid Panel) 06/06/2023 Colorectal Cancer Screening: Colonoscopy 06/06/2023 HIV Screening 06/06/2023 Hepatitis C Screening 06/06/2023 Medicare Annual Wellness Visit 06/06/2023 Social Influencers of Health Screening 06/06/2023 Depression Screening 05/12/2024 COVID-19 Vaccine ( season) 2025 05/17/2023, 05/24/2022, 03/30/2021, Additional history exists Influenza Vaccine (#1) 2025 05/17/2023, 2021 DTaP,Tdap,and Td Vaccines (2 - [...] 5 Years) and At-Risk Patients (6 to 49 Years) Aged Out No longer eligible based on patient's age to complete this topic RSV Immunization Patients Under 20 months Aged Out No longer eligible based on patient's age to complete this topic Varicella Vaccines Aged Out No longer eligible based on patient's age to complete this topic Insurance [employer] MEDICARE Member Subscriber Plan / Payer (Ef fective 2024-Present) Name:Maryjonathan Shadi Relation to Subscriber:Self Name:Shadi Fowler Payer ID:[id number] Group ID:[id number] Type:Not on file Address: [place] [address] [address] [id number] Care Teams Singe Machine Operator Relationship Specialty Start Date End Date Cornel Chavez PA PCP - General 01/17/23
== END 2025-01-25 14:41 | disposition home or self-care (01) ==
LOC: HO.HMCH 13:49
PROVIDERS: PCP Physician Assistant; Visit Provider Physician Assistant
DX: R73.09 Other abnormal glucose (principal); E78.9 Disorder of lipoprotein metabolism, unspecified; E66.812 Obesity, class 2; Z68.36 Body mass index [BMI] 36.0-36.9, adult; F42.2 Mixed obsessional thoughts and acts

== ENCOUNTER → 2025-01-25 13:48 | Outpatient (BNVA) | payer OTHER, SELFPAY | PROVIDERS: PCP Physician Assistant; Visit Provider Physician Assistant | DX: F42.2 Mixed obsessional thoughts and acts (principal); E78.5 Hyperlipidemia, unspecified; F42.9 Obsessive-compulsive disorder, unspecified; R73.09 Other abnormal glucose; E78.9 Disorder of lipoprotein metabolism, unspecified; L08.9 Local infection of the skin and subcutaneous tissue, unspecified; E66.812 Obesity, class 2; Z68.36 Body mass index [BMI] 36.0-36.9, adult | CPT/HCPCS: 99212 ==

== ENCOUNTER 2025-02-07 12:57 | Outpatient (AMB) | payer OTHER, SELFPAY ==
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
[2025-02-07 13:09] VITALS: BMI 35.9
== END 2025-02-07 14:11 | disposition home or self-care (01) ==
LOC: HO.HGI 12:58
PROVIDERS: PCP Physician Assistant; Visit Provider Internal Medicine
DX: K62.5 Hemorrhage of anus and rectum (principal); K64.4 Residual hemorrhoidal skin tags
CPT/HCPCS: 99204

== ENCOUNTER → 2025-02-07 12:57 | Outpatient (BNVA) | payer OTHER, SELFPAY | PROVIDERS: PCP Physician Assistant; Visit Provider Internal Medicine | DX: K62.5 Hemorrhage of anus and rectum (principal); K64.4 Residual hemorrhoidal skin tags; K59.00 Constipation, unspecified | CPT/HCPCS: 99202 ==

== ENCOUNTER 2025-04-05 10:44 | Outpatient (AMB) | payer OTHER, SELFPAY ==
[2025-04-05 10:48] VITALS: BMI 35.4
--- NOTE | 2025-04-05 10:48 | MHC.OFFVIS ---
Vital Signs 04/05/25 10:48 Height 6 ft 2 in Weight 276 lb BMI 35.4 BP not taken reason Patient Refused Intake Visit Reasons: HS Intake Note: Patient referred by Dr. Patel for assessment of HS on lt buttock area. Never picked up Hibiclens. Reports cyst has been present for about 20yrs. Patient c/o: painful, infected. Would like to have it removed today. District Plant Supervisor Required: No Lpn Home Health: L[facility] Home [facility] Present Accompanied by: Regina direct care Allergies escitalopram (From Lexapro) Adverse Reaction (Verified 04/05/25 10:55) Agitated Medication List - Last Reconciled 04/05/25 by Royce Ordonez MD acetaminophen 325 mg PO Q6H PRN 30 days bacitracin 1 appl See Protocol topical QID 7 days bismuth subsalicylate 524 mg (30 mL) PO QID PRN 30 days brexpiprazole (Rexulti) 4 mg PO DAILY diazepam 5 mg PO TID PRN diazepam (Valium) 5 mg PO DAILY PRN divalproex ER 2,000 mg (4 x 500 mg) PO BEDTIME 30 days fluoxetine 80 mg PO DAILY fluticasone propionate 50 mcg/actuation (Flonase Allergy Relief) 1 spray intranasal BID PRN 30 days hydroxyzine HCl 50 mg PO BEDTIME lurasidone 80 mg PO DAILY melatonin 6 mg (2 x 3 mg) PO BEDTIME 90 days memantine 1 tab PO BID risperidone 4 mg PO BID trazodone 200 mg PO BEDTIME PRN vitamin E (dl, acetate) 180 mg PO DAILY 90 days HPI Comments Details: Patient reports at least 20 year history of a area ?on my ass that hurts?. He desires excision. He denies any trauma or instrumentation to the region. He has an extremely poor historian is not really able to elicit aggravating or relieving factors for the lesion when asked. And does not apparently caused any problems with GI function however he feels it might be related to constipation. He denies any recent fevers chills nausea or vomiting. He denies any bleeding or drainage recently from the area of concern. [facility] Medical History Rectal bleeding Urinary hesitancy Cellulitis Flat feet, bilateral Insomnia COVID-19 alcohol syndrome Anal fistula Jalyn onychomycosis Screening for hyperlipidemia Screening for diabetes mellitus Bunion Obsessive compulsive disorder Surgical History No pertinent past surgical history Family History Mother No problems noted. Father No problems noted. Other Substance use disorder Social History Household Members: Other Household Members Other:: assisted Housing: Other Housing Other:: [facility] Care Do you presently have visiting nurse or other home services: Yes Alcohol intake: never Comment: Refuses to wear red socks stating he does not have seizure d/o Patient Tobacco Use Status: Former Tobacco user Tobacco use type: Cigarette Years Smoked: 17 years old e-Cigarette/Vaping Use: Never Used Second Hand Smoke Exposure: Yes service: No Current occupational status: disabled Sexual orientation: Lesbian/Blackwell/Homosexual Cognitive needs: No Hearing needs: No Vision needs: No Review of Systems Const All systems reviewed & are unremarkable except as noted in HPI and below Neuro Reports confusion Psych Reports confusion Physical Exam Vital Signs: BMI result Body Mass Index 35.4 Const Other: Patient presents with an escort or binder from the facility he resides at. His drilling assistant reports that he is at his mental baseline. During the interview patient was somewhat difficult and obstructionist as well as verbally combative and rude. However eventually he did comply in a cooperative fashion for appropriate evaluation. General: anxious and confusion Nutritional Appearance: obese Orientation/consciousness: oriented to person, oriented to place and confusion HEENT Head: Yes normal to inspection Ears: hearing grossly normal bilaterally General nose exam: Normal external nose present Eyes Pupils: Equal, round and reactive pupils present EOM: EOMs intact bilaterally Neck Neck: Yes normal visual inspection Chest Chest palpation & inspection: normal inspection of the chest Resp Effort & Inspection: normal respiratory effort Cardio Rate: regular rate Rhythm: regular rhythm GI Inspection: Yes normal to inspection Back/Spine/Pelvis Cervical Spine: normal cervical lordosis Thoracic/Lumbar Spine: thoracic and lumbar spine normal to inspection Back/spine/pelvis image:  1. 1 cm x 3 cm patch of what appears to be chronic folliculitis and/or hidradenitis no surrounding erythema edema or discharge Neuro General: oriented to person, oriented to place and confusion Cranial nerves: Yes Equal, round and reactive pupils present Extrem General: Yes normal to inspection Psych Appearance: disheveled Speech and movement: Slurred speech present and Pressured speech present Affect: Labile affect present, Animated affect present, Anxious affect present and Irritable affect present Thought process: Circumstantial thought process present, Confabulating thought process present and Illogical thought process present Assessment & Plan Assessment & Plan (1) Hydradenitis: Code(s): L73.2 - Hidradenitis suppurativa Category: Medical Plan: I told the patient that his presentation in the area he was concerned with on his right buttock was consistent with either chronic folliculitis and/or hidradenitis. It also could be secondary to skin picking disorder. Be that as it may he requests excision which I think is reasonable. I discussed him the nature of excisional biopsy and also reviewed with them the risks are involved. These include but are not limited to bleeding, infection, chronic pain, chronic open wound and unsightly scarring were all reviewed with him in detail. He told me then he understood and accepted the risks he described as inherent dissection undertaken an lastly indicated he still wished to proceed with surgery. Coding Level of Care Code New Pt Level 3 (96746) Diagnoses Hydradenitis L73.2 Time Spent (min) 30
--- OUTSIDE RECORDS SUMMARY | 2025-04-05 13:50 | XMS_ITS | Clinical Summary ---
Author Organization 175 [facility] Address [address] [place] [address] Phone Care Team Providers Care Middle School Professional Name Role Phone Cornel Chavez Primary Care [...] Encounters Date Type Department Care Team Description 02/24/2025 1:30 PM EDT Office Visit Orthopedic [facility] [address] [phone] Clifton Dean DPM Ingrowing nail (Primary Dx); [...] Care Team (Late st Contact Info) Description 05/31/2025 2:00 PM EST Office Visit Orthopedic [facility] [address] [phone] Clifton Dean DPM [address] [phone] Health Maintenance Due Date Last Done Comments Colorectal Cancer Screening: Colonoscopy 1979 Hepatitis B Vaccines (1 of 3 - 19+ 3-dose series) 1998 Cholesterol Screening (Lipid Panel) 06/06/2023 HIV Screening 06/06/2023 Hepatitis C Screening 06/06/2023 Medicare Annual Wellness Visit 06/06/2023 Social Influencers of Health Screening 06/06/2023 Depression Screening 05/12/2024 COVID-19 Vaccine ( season) 2025 05/17/2023, 05/24/2022, 03/30/2021, Additional history exists Influenza Vaccine (#1) 2025 05/17/2023, 2021 DTaP,Tdap,and Td Vaccines (2 - Td or Tdap) 01/15/2033 01/15/2023 RSV Immunization Adult Patients (1 - 1-dose 75+ series) 2054 HIB Vaccines Aged Out No longer eligi [...] patient's age to complete this topic Insurance [place] [address] MEDICARE Member Subscriber Plan / Payer (Ef fective 2024-Present) Name:RISA TOPETE Relation to Subscriber:Self Name:Risa Topete Payer ID:[id number] Group ID:[id number] Type:Not on file Address: [facility] [address] [phone] Care Teams Middle School Professional Relationship Specialty Start Date End Date Cornel Chavez PA [address] [place] [phone] PCP - General 01/17/23
== END 2025-04-05 11:17 | disposition home or self-care (01) ==
LOC: HO.HGS 10:44
PROVIDERS: PCP Physician Assistant; Visit Provider Surgery
DX: L73.2 Hidradenitis suppurativa (principal)
CPT/HCPCS: 99203

== ENCOUNTER → 2025-04-05 10:44 | Outpatient (BNVA) | payer OTHER, SELFPAY | PROVIDERS: PCP Physician Assistant; Visit Provider Surgery | DX: L73.2 Hidradenitis suppurativa (principal) | CPT/HCPCS: 99202 ==

== ENCOUNTER 2025-04-25 08:04 | Day surgery (SDC) | payer OTHER, SELFPAY ==
--- NOTE | 2025-04-20 12:01 | HO.ANESPROP2 ---
Documented by User: Cee Hidalgo NP 04/20/25 12:03 HPI - Anesthesia Eval Consult details Narrative: 45 yr old male for right Excision Cyst on Buttocks H/O ETOH syndrome, OCD, resides in nursing home. [facility] Active Problems Active Problems: All Active Problems (Updated 02/07/25 @ 17:09 by Rafia Patel MD) External hemorrhoid (Acute) Hydradenitis (Acute) Rectal bleeding (Acute) Class 2 obesity (Acute) Urinary hesitancy (Acute) Laceration of toe (Acute) Bronchitis (Acute) Allergic rhinitis (Acute) Folliculitis (Acute) Lymphadenopathy (Acute) Skin-picking disorder (Acute) Anxiety (Acute) Dysuria (Acute) Impaired glucose metabolism (Acute) Borderline high cholesterol (Acute) Elevated fasting glucose (Acute) Dyspepsia (Acute) Skin lesion (Acute) Toenail fungus (Acute) Obese (Acute) Tobacco dependence (Acute) OCD (obsessive compulsive disorder) (Acute) Erectile dysfunction (Acute) Lumbar spine pain (Acute) Anal fistula (Acute) Cough (Acute) Expressive language impairment (Acute) Intermittent explosive disorder in adult (Acute) OCD (obsessive compulsive disorder) (Acute) Adult general medical exam (Acute) Screening for diabetes mellitus (Acute) Cough (Acute) Obsessive compulsive disorder (Acute) Past Medical History Medical History Rectal bleeding Urinary hesitancy Cellulitis Flat feet, bilateral Insomnia COVID-19 alcohol syndrome Anal fistula Jalyn onychomycosis Screening for hyperlipidemia Screening for diabetes mellitus Bunion Obsessive compulsive disorder Family History Family History Mother No problems noted. Father No problems noted. Other Substance use disorder Surgical History Surgical History No pertinent past surgical history Social History Social History Household Members: Other Household Members Other:: skilled nursing Housing: Other Housing Other:: Retirement Do you presently have visiting nurse or other home services: Yes Alcohol intake: never Comment: Refuses to wear red socks stating he does not have seizure d/o Patient Tobacco Use Status: Former Tobacco user Tobacco use type: Cigarette Years Smoked: 17 years old e-Cigarette/Vaping Use: Never Used Second Hand Smoke Exposure: Yes Use of substances other than those prescribed or required for medical reasons: No Advance Directives: No Advance Directives Information Provided: Yes service: No Current occupational status: disabled Sexual orientation: Lesbian/Blackwell/Homosexual Cognitive needs: No Hearing needs: No Vision needs: No Meds Allergies Allergy/AdvReac Type Severity Reaction Status Date / Time escitalopram (From Lexapro) AdvReac Agitated Verified 04/05/25 10:55 Home Medications ?Medication ?Instructions ?Recorded ?Confirmed ?Last Taken ?Type memantine 10 mg tablet 1 tab PO BID 10/26/21 04/25/25 06/13/23 History risperidone 4 mg tablet 4 mg PO BID 11/06/22 04/25/25 06/13/23 History diazepam 5 mg tablet 5 mg PO TID PRN Anxiety 06/13/23 04/25/25 04/25/25 History hydroxyzine HCl 50 mg tablet 50 mg PO BEDTIME 06/13/23 04/25/25 06/13/23 History brexpiprazole 4 mg tablet (Rexulti) 4 mg PO DAILY 01/25/25 04/25/25 Unknown History diazepam 5 mg tablet (Valium) 5 mg PO DAILY PRN Anxiety 01/25/25 04/25/25 Unknown History fluoxetine 40 mg capsule 80 mg PO DAILY 01/25/25 04/25/25 Unknown History lurasidone 80 mg tablet 80 mg PO DAILY 01/25/25 04/25/25 Unknown History trazodone 100 mg tablet 200 mg PO BEDTIME PRN Anxiety 02/07/25 04/25/25 Unknown History Documented by User: Td Santiago MD 04/25/25 10:43 [facility] Past Medical History Medical History Rectal bleeding Urinary hesitancy Cellulitis Flat feet, bilateral Insomnia COVID-19 alcohol syndrome Anal fistula Jalyn onychomycosis Screening for hyperlipidemia Screening for diabetes mellitus Bunion Obsessive compulsive disorder Family History Family History Mother No problems noted. Father No problems noted. Other Substance use disorder Family history of problems with anesthesia: No Surgical History Surgical History No pertinent past surgical history History of Problems with Anesthesia: No Social History Social History Household Members: Other Household Members Other:: skilled nursing Housing: Other Housing Other:: Retirement Do you presently have visiting nurse or other home services: Yes Alcohol intake: never Comment: Refuses to wear red socks stating he does not have seizure d/o Patient Tobacco Use Status: Former Tobacco user Tobacco use type: Cigarette Years Smoked: 17 years old e-Cigarette/Vaping Use: Never Used Second Hand Smoke Exposure: Yes Use of substances other than those prescribed or required for medical reasons: No Advance Directives: No Advance Directives Information Provided: Yes service: No Current occupational status: disabled Sexual orientation: Lesbian/Blackwell/Homosexual Cognitive needs: No Hearing needs: No Vision needs: No Meds Allergies Allergy/AdvReac Type Severity Reaction Status Date / Time escitalopram (From Lexapro) AdvReac Agitated Verified 04/05/25 10:55 Home Medications ?Medication ?Instructions ?Recorded ?Confirmed ?Last Taken ?Type memantine 10 mg tablet 1 tab PO BID 10/26/21 04/25/25 06/13/23 History risperidone 4 mg tablet 4 mg PO BID 11/06/22 04/25/25 06/13/23 History diazepam 5 mg tablet 5 mg PO TID PRN Anxiety 06/13/23 04/25/25 04/25/25 History hydroxyzine HCl 50 mg tablet 50 mg PO BEDTIME 06/13/23 04/25/25 06/13/23 History brexpiprazole 4 mg tablet (Rexulti) 4 mg PO DAILY 01/25/25 04/25/25 Unknown History diazepam 5 mg tablet (Valium) 5 mg PO DAILY PRN Anxiety 01/25/25 04/25/25 Unknown History fluoxetine 40 mg capsule 80 mg PO DAILY 01/25/25 04/25/25 Unknown History lurasidone 80 mg tablet 80 mg PO DAILY 01/25/25 04/25/25 Unknown History trazodone 100 mg tablet 200 mg PO BEDTIME PRN Anxiety 02/07/25 04/25/25 Unknown History Exam Exam Date and Time: 04/25/25 Airway Mallampati Class: III TM Dist: >3cm Neck ROM: Full Heart: rrr Lungs: unlabored Assessment and Plan Assessment Anesthesia Assessment: Anesthesia Plan Discussed and Chart Reviewed Final Anesthetic Review Family History of Problems with Anesthesia: No History of Problems with Anesthesia: No NPO: Yes ASA Class: III Final Preanesthetic Review: No Changes in Pt Med Stat, Meds/Allgs Chart Reviewed, Consent Obtained/Reviewed and Anes Risks/Benef Reviewed Patient Risk: Low Procedure Risk: Low Anesthetic Plan Anesthetic Plan: MAC: Disposition: Standard PACU
[2025-04-25] VITALS (7 sets, daily range): BP systolic 104–126; BP diastolic 70–83; PULSE 67–82; RESP 10–82; TEMP 36.1–36.6; O2SAT 92–97; BMI 36.0
[2025-04-25] MEDS: Lactated Ringers 1,000 ML 100 ML IVCONT (08:55)
--- NOTE | 2025-04-25 10:16 | MHC.SHP ---
Pre-Procedural Eval Section A - 24 Hr Update-Section A only Date of Service: 04/25/25 The patient is an INPATIENT: No Changes since office visit: No Cold of Flu in the past 2 weeks, No New Medical Problems, No Changes in Medication and No Patient answered all questions The patient has been examined within 24 hours of the surgical procedure. The History & Physical has been completed within 30 days and I have reviewed it.: Yes Section B - Complete if H&P > 30 days Chief Complaint: Hidradenitis suppurativa Allergies: Allergies Allergy/AdvReac Type Severity Reaction Status Date / Time escitalopram (From Lexapro) AdvReac Agitated Verified 04/05/25 10:55 Plan I have reviewed the history and physical and performed a pertinent physical examination on my patient. No changes have occurred unless specified. Time Spent With Patient Time: Total time managing care of this patient today __5__ minutes.
--- NOTE | 2025-04-25 11:37 | P.OP_ITS ---
Operative Note Operative Note Date of Service: 04/25/25 Narrative: Preoperative diagnosis right buttock hidradenitis Postoperative diagnosis right buttock hidradenitis with abscess Procedure performed excision of right buttock hidradenitis, abscess debridement and packing Surgeon: Royce Ordonez MD Neurophysiological Technician: RAMYA Ibarra Findings approximate 2 cm x 4 cm chronic abscess cavity involving the superficial soft tissues of the apex of the right buttock. No communication or fistulous evidence. The patient is brought to the operating room placed supine on the operating table. Conscious sedation was initiated and he is placed in the prone gian- knife position. Once this was done his right buttock was prepped and draped in standard sterile fashion. After this approximately 40 cc of Marcaine with epinephrine were infused skin and soft tissue around the previously marked lesion consistent with hidradenitis in the apex of the patient's right buttock. Around this locally anesthetized site approximate 4 cm x 2 cm elliptical incision was created around the island of hidradenitis and carried down with a combination of blunt and sharp dissection to the subdermal fatty tissue. Large amount of purulent exudate was then encountered. This was evacuated. The skin and subdermal fat island was passed off table to specimen. We then explored the deeper tissues. Abscess cavity extended approximately 3 or 4 cm below the level of the skin. It did not communicate with any other structure did not fistulize anywhere else. The involved tissue was debrided and evacuated. A glistening abscess cavity was also fulgurated with cautery. Hemostasis was achieved with cautery as well. The entire cavity was cleaned and dried. Hydrogen peroxide were was then poured in for chemical debridement. It was then evacuated and the wound was dried. It was then irrigated again with saline. The wound was then packed with 1 in plain packing gauze soaked in 0.25% Marcaine with epinephrine. Sterile occlusive dressing was applied. The patient tolerated procedure well, was returned supine and then recovered from anesthesia with Anesthesiology Service. He was then taken to the recovery room in good condition. The sponge instrument needle counts were correct in the case.
== END 2025-04-25 13:04 | disposition home or self-care (01) ==
PROVIDERS: PCP Physician Assistant; Visit Provider Surgery
PROC: (CPT 10060; principal; 2025-04-25 10:20)
DX: L73.2 Hidradenitis suppurativa (principal); L02.31 Cutaneous abscess of buttock; B37.2 Candidiasis of skin and nail; F42.9 Obsessive-compulsive disorder, unspecified; E66.9 Obesity, unspecified; Z68.35 Body mass index [BMI] 35.0-35.9, adult; K62.5 Hemorrhage of anus and rectum; Z79.51 Long term (current) use of inhaled steroids; Z79.899 Other long term (current) drug therapy; Z88.8 Allergy status to other drugs, medicaments and biological substances; Z87.891 Personal history of nicotine dependence
CPT/HCPCS: 10060; 11470; 88305; 99284; J0131; J0690; J1885; J2003; J2250; J2405; J2704; J3010

== ENCOUNTER → 2025-04-25 08:04 | Outpatient (BNV) | payer OTHER, SELFPAY | PROVIDERS: PCP Physician Assistant; Visit Provider Surgery | DX: L73.2 Hidradenitis suppurativa (principal) | CPT/HCPCS: 11404 ==

== ENCOUNTER 2025-04-25 17:21 | Emergency (ER) | payer OTHER, SELFPAY ==
[2025-04-25 17:54] VITALS: BP 170/100; PULSE 85; O2SAT 98
[2025-04-25 18:03] VITALS: BP 104/76; PULSE 79; RESP 18; TEMP 36.9; O2SAT 95; BMI 37.2
[2025-04-25 18:06] VITALS: RESP 20
--- NOTE | 2025-04-25 18:37 | PC.NURSE ---
Spoke with manufacturing group leader who states pt is 1:1 in assisted, asked to send staff and states he will try and send someone here [facility]. Meanwhile 1:1 instituted in ED. Pt anxious awaiting MD evaluation. States he takes meds at this time however senior programmer states pt gets meds at 1999.
--- NOTE | 2025-04-25 19:14 | PC.NURSE ---
Pt extremely restless and needing frequent redirection. Continually coming out of room and being intrusive. Pt continually reeducated that he is waiting to see a provider and that patients are seen by acuity level.
--- NOTE | 2025-04-25 19:58 | ED.SKABFB ---
HPI - Skin/Abscess/Foreign Bdy General Chief complaint: Wound/Laceration Stated complaint: Abscess surgery earlier today, wound open Time Seen by Provider: 04/25/25 19:51 Source: patient, RN notes reviewed, old records reviewed and other (assisted rep) Mode of arrival: ambulatory Limitations: no limitations History of Present Illness ED Provider: Denise Reece PA-C HPI narrative: 45-year-old male who underwent incision and drainage (I&D) of a right buttock abscess earlier today in an outpatient surgical setting. The incision measured approximately 3?4 cm and was cauterized, irrigated with hydrogen peroxide, saline, and iodine, then packed with marcaine/epinephrine-soaked gauze and covered with a dry surgical dressing. While using the bathroom this evening, the patient noted the packing material in the toilet and brief streaming bleeding from the wound site. Bleeding has since stopped. He presents requesting repacking and inquiring whether the wound could be ?sewn shut?; the rationale for leaving the wound open with packing was explained to him. He also mentioned needing a routine medication (unspecified) that he was supposed to take before 08:00 and does not have with him. Review of Systems: ? Skin/Soft tissue: Reports loss of wound packing and brief bleeding from right buttock incision. Related Data Home Medications ?Medication ?Instructions ?Recorded ?Confirmed memantine 10 mg tablet 1 tab PO BID 10/26/21 05/04/25 risperidone 4 mg tablet 4 mg PO BID 11/06/22 05/04/25 diazepam 5 mg tablet 5 mg PO TID PRN Anxiety 06/13/23 05/04/25 hydroxyzine HCl 50 mg tablet 50 mg PO BEDTIME 06/13/23 05/04/25 brexpiprazole 4 mg tablet (Rexulti) 4 mg PO DAILY 01/25/25 05/04/25 diazepam 5 mg tablet (Valium) 5 mg PO DAILY PRN Anxiety 01/25/25 05/04/25 fluoxetine 40 mg capsule 80 mg PO DAILY 01/25/25 05/04/25 lurasidone 80 mg tablet 80 mg PO DAILY 01/25/25 05/04/25 trazodone 100 mg tablet 200 mg PO BEDTIME PRN Anxiety 02/07/25 05/04/25 Previous Rx's ?Medication ?Instructions ?Recorded divalproex 500 mg tablet,extended 2,000 mg (4 x 500 mg) PO BEDTIME 04/03/22 release 24 hr 30 days #120 tabs melatonin 3 mg tablet 6 mg (2 x 3 mg) PO BEDTIME 90 days 05/06/22 #180 tabs vitamin E (dl, acetate) 180 mg 180 mg PO DAILY 90 days #90 caps 05/06/22 (400 unit) capsule acetaminophen 325 mg capsule 325 mg PO Q6H PRN pain or fever 30 04/26/24 days #120 caps bismuth subsalicylate 262 mg/15 mL 524 mg (30 mL) PO QID PRN diarrhea 04/26/24 oral suspension 30 days #1,200 mL fluticasone propionate 50 1 spray intranasal BID PRN allergy 12/10/24 mcg/actuation nasal symptoms 30 days #16 grams spray,suspension (Flonase Allergy Relief) bacitracin 500 unit/gram topical 1 appl topical QID for cuts. 01/25/25 ointment abrasions ect.. 7 days #14 grams acetaminophen 325 mg tablet 325 mg PO QID #20 tabs 04/25/25 (Tylenol) naproxen 375 mg tablet 375 mg PO BID #14 tabs 04/25/25 omeprazole magnesium 20 mg 20 mg PO BID #14 tabs 04/25/25 tablet,delayed release (Prilosec OTC) oxycodone 5 mg capsule 5 mg PO Q6H PRN pain #30 caps 04/25/25 Allergies Allergy/AdvReac Type Severity Reaction Status Date / Time escitalopram (From Lexapro) AdvReac Agitated Verified 05/04/25 10:54 Review of Systems Review of Systems: Yes all other systems are reviewed and are negative PMFSH Past Medical History Attestation statement: The following information was validated with the patient. Source: old records reviewed and nursing notes reviewed Medical History Rectal bleeding Urinary hesitancy Cellulitis Flat feet, bilateral Insomnia 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 Father No problems noted. Other Substance use disorder Social History Social History Household Members: Other Household Members Other:: prison Housing: Other Housing Other:: [facility] Do you presently have visiting nurse or other home services: Yes Alcohol intake: never Comment: Refuses to wear red socks stating he does not have seizure d/o Patient Tobacco Use Status: Former Tobacco user Tobacco use type: Cigarette Years Smoked: 17 years old e-Cigarette/Vaping Use: Never Used Second Hand Smoke Exposure: Yes service: No Current occupational status: disabled Sexual orientation: Lesbian/Blackwell/Homosexual Cognitive needs: No Hearing needs: No Vision needs: No Physical Exam Exam: Exam: surgical abscess as above with the measurements as above. no packing present, no odor, no bleeding, no lymphangitis, NVI Vital Signs: Vital Signs: Last Vital Signs Temp 0 F L 04/25/25 21:01 Pulse 0 L 04/25/25 21:01 Resp 20 04/25/25 21:01 BP 0/0 L 04/25/25 21:01 Pulse Ox 95 04/25/25 18:03 O2 Del Method Room Air 04/25/25 18:03 BMI result Body Mass Index 37.2 Medical Decision Making Medical Decision Making MDM Narrative: Patient is a 45-year-old male presenting for loss of packing after earlier I&D of a right buttock abscess. Wound was evaluated and repacked in the ED. Bleeding is controlled, and patient is stable for discharge. Problem #1: Right buttock abscess ? s/p I&D, packing displaced Assessment: Packing dislodged after earlier surgical procedure; wound appears clean, no active bleeding or purulent drainage. Patient has a history of hidradenitis suppurativa. Plan: Wound cleansed and repacked in ED with saline-soaked gauze; applied dated surgical pad dressing. Educated patient on importance of keeping wound open with packing to prevent recurrent abscess; advised to keep dressing clean and dry. Outpatient follow-up with wound care / general surgery as previously arranged. Return precautions given for increased pain, swelling, fever, purulent drainage, or uncontrolled bleeding. Differential Diagnosis Differential Diagnoses: The differential diagnosis associated with the presentation includes worsening abscess noninfected surgical wound Admission/Observation Consideration of admission/observation: Escalation of care including admission/observation considered External Record Review External record reviewed: Outpatient record Prescription Management I considered prescription management with: Pain Medication Chronic Conditions Patient?s care impacted by: Other Social Determinants Patient?s care significantly limited by Social Determinants of Health including: Other Social Determinant of Health Discharge Plan Discharge Clinical Impression: Abscess of buttock, right Patient Disposition: Home, Self-Care Additional Instructions: You had a new surgical dressing placed in your wound. I placed soaked saline gauze into the wound after cleaning it with betadine. I then placed a surgical pad dressing over this. Please keep this in place until your followup with wound care/surgery. This should not interfere with your ability to move your bowels. Return for concerns. Prescriptions: No Action melatonin 3 mg tablet 6 mg PO BEDTIME 90 Days Qty: 180 2RF vitamin E (dl, acetate) 180 mg (400 unit) capsule 180 mg PO DAILY 90 Days Qty: 90 3RF bismuth subsalicylate 262 mg/15 mL suspension 524 mg PO QID PRN (Reason: diarrhea) 30 Days Qty: 1200 3RF acetaminophen 325 mg capsule 325 mg PO Q6H PRN (Reason: pain or fever) 30 Days Qty: 120 3RF fluticasone propionate [Flonase Allergy Relief] 50 mcg/actuation spray,suspension 1 spray intranasal BID PRN (Reason: allergy symptoms) 30 Days Qty: 16 3RF Rx Instructions: administer into each nostril divalproex 500 mg Tablet Extended Release 24 Hr 2,000 mg PO BEDTIME 30 Days Qty: 120 0RF memantine 10 mg tablet 1 tab PO BID hydroxyzine HCl 50 mg tablet 50 mg PO BEDTIME diazepam 5 mg tablet 5 mg PO TID PRN (Reason: Anxiety) risperidone 4 mg tablet 4 mg PO BID naproxen 375 mg tablet 375 mg PO BID Qty: 14 0RF oxycodone 5 mg capsule 5 mg PO Q6H PRN (Reason: pain) Qty: 30 0RF Rx Instructions: Partial Fill upon patient request. acetaminophen [Tylenol] 325 mg tablet 325 mg PO QID Qty: 20 0RF omeprazole magnesium [Prilosec OTC] 20 mg tablet,delayed release (DR/EC) 20 mg PO BID Qty: 14 0RF lurasidone 80 mg tablet 80 mg PO DAILY fluoxetine 40 mg capsule 80 mg PO DAILY Rexulti 4 mg tablet 4 mg PO DAILY diazepam [Valium] 5 mg tablet 5 mg PO DAILY PRN (Reason: Anxiety) bacitracin 500 unit/gram ointment 1 appl topical QID 7 Days Qty: 14 3RF Protocol: Apply to: Apply to: skin lesions trazodone 100 mg tablet 200 mg PO BEDTIME PRN (Reason: Anxiety) Interventions: ED Discharge Assessment Last Done: 04/25/25 21:01 Discharge Date/Time: 04/25/25 21:01 Print Language: Maltese
--- NOTE | 2025-04-25 20:58 | PC.NURSE ---
Pt refused discharge vital signs.
[2025-04-25 21:01] VITALS: BP 0/0; PULSE 0; RESP 20; TEMP -17.7; TEMP 0
--- OUTSIDE RECORDS SUMMARY | 2025-04-25 22:49 | XMS_ITS | Clinical Summary ---
Author Organization [address] [facility] Address [address] [place] [address] Phone Care Team Providers Care Navigating Officer Name Role Phone Cornel Chavez Primary Care [...] 02/24/2025 1:30 PM EDT Office Visit [facility] [address] [phone] Clifton Dean DPM Ingrowing nail (Primary Dx); [...] 05/31/2025 2:00 PM EST Office Visit [facility] [address] [phone] Clifton Dean DPM [address] [phone] Health Maintenance Due Date Last Done Comments [...] patient's age to complete this topic Insurance [address] [address] MEDICARE Member Subscriber Plan / Payer (Ef fective 2024-Present) Name:RISA TOPETE Relation to Subscriber:Self Name:Risa Topete Payer ID:[id number] Group ID:[id number] Type:Not on file Address: [facility] [address] [id number] Care Teams Navigating Officer Relationship Specialty Start Date End Date Cornel Chavez PA [address] [place] [phone] PCP - General 01/17/23
== END 2025-04-25 21:01 | disposition home or self-care (01) ==
PROVIDERS: Emergency Provider Emergency Medicine; PCP Physician Assistant
DX: L02.31 Cutaneous abscess of buttock (principal); Z48.01 Encounter for change or removal of surgical wound dressing; Z79.899 Other long term (current) drug therapy
CPT/HCPCS: 99284

== ENCOUNTER 2025-04-26 10:29 | Outpatient (AMB) | payer OTHER, SELFPAY ==
[2025-04-26 10:31] VITALS: BMI 35.9
--- NOTE | 2025-04-26 10:31 | A.OFFVIS_ITS ---
Vital Signs 04/26/25 10:31 Height 6 ft 2 in Weight 280 lb BMI 35.9 Intake Visit Reasons: wound check buttock cyst Intake Note: Patient here for follow up ED visit yesterday. States I saw intestines coming out of buttock wound. Patient declined vital signs. Metal Fabricator Helper Required: No Accompanied by: Stanley company aid. Allergies escitalopram (From Lexapro) Adverse Reaction (Verified 04/26/25 11:00) Agitated HPI HPI wound check buttock cyst: Details: Doing well here with Stanley from [facility] for wound check. Denies pain [facility] Medical History (Updated 04/26/25 @ 11:13 by Shadi Thornton PA-C) Abscess of buttock, right Rectal bleeding Urinary hesitancy Cellulitis Flat feet, bilateral Insomnia COVID-19 alcohol syndrome Anal fistula Jalyn onychomycosis Screening for hyperlipidemia Screening for diabetes mellitus Bunion Obsessive compulsive disorder Surgical History No pertinent past surgical history Family History Mother No problems noted. Father No problems noted. Other Substance use disorder Social History Household Members: Other Household Members Other:: half-way Housing: Other Housing Other:: Half-Way Do you presently have visiting nurse or other home services: Yes Alcohol intake: never Comment: Refuses to wear red socks stating he does not have seizure d/o Patient Tobacco Use Status: Former Tobacco user Tobacco use type: Cigarette Years Smoked: 17 years old e-Cigarette/Vaping Use: Never Used Second Hand Smoke Exposure: Yes service: No Current occupational status: disabled Sexual orientation: Lesbian/Blackwell/Homosexual Cognitive needs: No Hearing needs: No Vision needs: No Physical Exam Vital Signs: BMI result Body Mass Index 35.9 Const General: comfortable and no acute distress GI Other: Right buttock wound 4 by 2 cm open wound about 3 cm deep, dry, no malodor, no fecal material no surrounding erythema minimal drainage. Packing in place Assessment & Plan Assessment & Plan (1) Abscess of buttock, right: Comment: S/p excision, Dr. Ordonez 04/25/2025 Code(s): L02.31 - Cutaneous abscess of buttock Category: Medical Plan 45-year-old male who lives at the [facility] adult care facility in [place] returning to the office following excision of a right buttock abscess yesterday, he is here for wound check, packing change. We did arrange for VNA services which was should begin tomorrow for 3 visits per week. He is doing well, has no issues right now denies pain. On exam packing was in place, there was no concern for infection. Upon removing the packing the wound appeared dry, smaller than yesterday after the procedure. Remains about 3 cm deep 4 by 2 cm. . The wound was repacked with saline soaked gauze, covered with fluff gauze, Tegaderm. He can continue to change his ideally twice daily but once daily is fine if this is all that the facility can manage. He can follow up in one-week with his previously scheduled appointment with Dr. Ordonez. Can come back sooner or call with any concerns. Coding Level of Care Code Est Pt Level 3 (20552) Diagnoses Abscess of buttock, right L02.31
--- OUTSIDE RECORDS SUMMARY | 2025-04-26 13:11 | XMS_ITS | Clinical Summary ---
Author Organization 175 [facility] Address [address] [place] [address] Phone Care Team Providers Care Honey Extractor Name Role Phone Cornel Chavez Primary Care [...] 02/24/2025 1:30 PM EDT Office Visit [facility] [address] [phone] Clifton Dean DPM Ingrowing nail (Primary Dx); [...] 05/31/2025 2:00 PM EST Office Visit [facility] [address] [phone] Clifton Dean DPM [address] [phone] Health Maintenance Due Date Last Done Comments [...] patient's age to complete this topic [place] [address] [address] MEDICARE Member Subscriber Plan / Payer (Ef fective 2024-Present) Name:RISA TOPETE Relation to Subscriber:Self Name:Risa Topete Payer ID:[id number] Group ID:[id number] Type:Not on file Address: [facility] [address] [address] Care Teams Honey Extractor Relationship Specialty Start Date End Date Cornel Chavez PA [address] [place] [id number] PCP - General 01/17/23
== END 2025-04-26 11:01 | disposition home or self-care (01) ==
LOC: HO.HGS 10:29
PROVIDERS: PCP Physician Assistant
DX: L02.31 Cutaneous abscess of buttock (principal)
CPT/HCPCS: 99213

== ENCOUNTER → 2025-04-26 10:29 | Outpatient (BNVA) | payer OTHER, SELFPAY | PROVIDERS: PCP Physician Assistant | DX: L02.31 Cutaneous abscess of buttock (principal) | CPT/HCPCS: 99212 ==

== ENCOUNTER 2025-05-04 10:42 | Outpatient (AMB) | payer OTHER, SELFPAY ==
[2025-05-04 10:45] VITALS: BMI 35.9
--- NOTE | 2025-05-04 10:45 | A.OFFVIS_ITS ---
Vital Signs 3 05/04/25 10:45 Height 6 ft 2 in Weight 280 lb BMI 35.9 BP not taken reason Patient Refused Intake Visit Reasons: S/P excision Rt. buttock cyst Intake Note: Patient here s/p Rt buttock excision on 04-25-2025. Patient c/o: another cyst growing next to site. Pt states cyst is inflamed and uncomfortable. Hand Sewer Shoes Required: No Marine Services Technician: Marine Services Technician Present Accompanied by: Agusto agency worker Allergies escitalopram (From [employer]) Adverse Reaction (Verified 05/04/25 10:54) Agitated Medication List - Last Reconciled 05/04/25 by Royce Ordonez MD acetaminophen (Tylenol) 325 mg PO QID acetaminophen 325 mg PO Q6H PRN 30 days bacitracin 1 appl See Protocol topical QID 7 days bismuth subsalicylate 524 mg (30 mL) PO QID PRN 30 days brexpiprazole (Rexulti) 4 mg PO DAILY diazepam 5 mg PO TID PRN diazepam (Valium) 5 mg PO DAILY PRN divalproex ER 2,000 mg (4 x 500 mg) PO BEDTIME 30 days fluoxetine 80 mg PO DAILY fluticasone propionate 50 mcg/actuation (Flonase Allergy Relief) 1 spray intranasal BID PRN 30 days hydroxyzine HCl 50 mg PO BEDTIME lurasidone 80 mg PO DAILY melatonin 6 mg (2 x 3 mg) PO BEDTIME 90 days memantine 1 tab PO BID naproxen 375 mg PO BID omeprazole magnesium (Prilosec OTC) 20 mg PO BID oxycodone 5 mg PO Q6H PRN risperidone 4 mg PO BID trazodone 200 mg PO BEDTIME PRN vitamin E (dl, acetate) 180 mg PO DAILY 90 days HPI Comments Details: 45-year-old male presents from his facility for further care and evaluation of his right buttock open wound. He reports ?they are doing the dressing changes?. He denies pain fevers chills nausea or vomiting. He reports normal bowel and bladder habits. 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 Father No problems noted. Other Substance use disorder Social History Household Members: Other Household Members Other:: penitentiary Housing: Other Housing Other:: Half-Way Do you presently have visiting nurse or other home services: Yes Alcohol intake: never Comment: Refuses to wear red socks stating he does not have seizure d/o Patient Tobacco Use Status: Former Tobacco user Tobacco use type: Cigarette Years Smoked: 17 years old e-Cigarette/Vaping Use: Never Used Second Hand Smoke Exposure: Yes service: No Current occupational status: disabled Sexual orientation: Lesbian/Blackwell/Homosexual Cognitive needs: No Hearing needs: No Vision needs: No Review of Systems Const All systems reviewed & are unremarkable except as noted in HPI and below Physical Exam Vital Signs: BMI result Body Mass Index 35.9 HEENT Head: Yes normal to inspection and Yes normocephalic Eyes General: appearance normal, both eyes and all related structures Chest Chest palpation & inspection: normal inspection of the chest Resp Effort & Inspection: normal respiratory effort and able to speak in complete sentences Cardio Rate: regular rate Rhythm: regular rhythm GI Inspection: Yes normal to inspection Back/Spine/Pelvis Back/spine/pelvis image: 2 1. 3 cm x 3 cm open wound. Bed is granulating with minimal fibrinous exudate. No surrounding erythema edema or discharge. Assessment & Plan Assessment & Plan (1) Abscess of buttock, right: Comment: S/p excision, Dr. Ordonez 04/25/2025 Code(s): L02.31 - Cutaneous abscess of buttock Category: Medical Plan: I told the patient I felt at his open wound was healing well. I encouraged him to continue with wound care and dressing changes. He will come back and see us again in a couple of weeks for further evaluation. He said he was happy with that plan. Coding Level of Care Code Global (57310) Diagnoses Abscess of buttock, right L02.31 Time Spent (min) 30 Comment Record review patient visit and coordination of care time
--- OUTSIDE RECORDS SUMMARY | 2025-05-04 10:45 | XMS_ITS | Clinical Summary ---
Author Organization 175 [facility] Address [address] [place] [address] Phone Care Team Providers Care Accounts Receivable Processor Name Role Phone Cornel Chavez Primary Care [...] 02/24/2025 1:30 PM EDT Office Visit [facility] [address] [phone] Clifton Dean DPM Ingrowing nail (Primary Dx); [...] 05/31/2025 2:00 PM EST Office Visit [facility] [address] [phone] Clifton Dean DPM [address] [phone] Health Maintenance Due Date Last Done Comments Colorectal Cancer Screening: Colonoscopy 1980 Drug Screen 1980 Non-Opioid Controlled Substance Agreement 1979 Hepatitis B Vaccines (1 of 3 [...] patient's age to complete this topic Insurance [facility] MEDICARE Member Subscriber Plan / Payer (Ef fective 2024-Present) Name:RISA TOPETE Relation to Subscriber:Self Name:Janeth Risa Payer ID:[id number] Group ID:[id number] Type:Not on file Address: [place] [address] [address] [id number] Care Teams Accounts Receivable Processor Relationship Specialty Start Date End Date Cornel Chavez PA [address] [place] [address] PCP - General 01/17/23
== END 2025-05-04 11:17 | disposition home or self-care (01) ==
LOC: HO.HGS 10:42
PROVIDERS: PCP Physician Assistant; Visit Provider Surgery
DX: L02.31 Cutaneous abscess of buttock (principal)
CPT/HCPCS: 99024

== ENCOUNTER → 2025-05-04 10:42 | Outpatient (BNVA) | payer OTHER, SELFPAY | PROVIDERS: PCP Physician Assistant; Visit Provider Surgery | DX: Z48.817 Encounter for surgical aftercare following surgery on the skin and subcutaneous tissue (principal); L02.31 Cutaneous abscess of buttock | CPT/HCPCS: 99212 ==